=== PATIENT | female | born 1940 | race Caucasian/White ===

== ENCOUNTER 2023-01-26 14:15 | Outpatient (CLI) | payer MEDICARE, SELFPAY ==
--- NOTE | ~2023-01-26 | XR_ITS ---
EXAMINATION: XR hip BI 2V w AP pelvis DATE: 01/26/2023 15:01 INDICATION: Left groin pain. TECHNIQUE: An anteroposterior view of the pelvis and 2 views of each hip were obtained. COMPARISON: None. FINDINGS: Surgical clips overlie the abdomen. There is an old healed fracture of left parasymphyseal pubis. There is lumbar dextrocurvature and severe spondylosis. No acute fracture. There is mild osteo arthritis of the hips. IMPRESSION: 1. Mild osteoarthritis of the hips. Reviewed, dictated and finalized at location E.
== END 2023-01-26 14:16 | disposition home or self-care (01) ==
LOC: CHSIMG 14:25
PROVIDERS: PCP Family Medicine; Visit Provider Family Medicine
DX: S32.9XXA Fracture of unspecified parts of lumbosacral spine and pelvis, initial encounter for closed fracture (principal); M16.0 Bilateral primary osteoarthritis of hip
CPT/HCPCS: 73521

== ENCOUNTER 2024-01-27 05:38 | Inpatient (IN) | payer MEDICARE, SELFPAY ==
[2024-01-27] VITALS (23 sets, daily range): BP systolic 113–152; BP diastolic 51–88; PULSE 72–79; RESP 14–18; TEMP 36.2–36.8; O2SAT 92–100; BMI 26.4
--- NOTE | ~2024-01-27 | XR_ITS ---
EXAMINATION: XR hip LT 2V w AP pelvis DATE: 01/27/2024 06:45 INDICATION: Left hip pain. TECHNIQUE: An anteroposterior view of the pelvis on 2 radiographs and 2 views of left were obtained. COMPARISON: Pelvis and hip radiographs 01/26/2023 FINDINGS: Bone alignment is normal. No acute fracture. There is an old healed fracture deformity of l eft parasymphyseal pubis. There is mild osteoarthritis of the hips. Surgical clips overlie the abdome n. There is severe lumbar spondylosis. IMPRESSION: 1. Mild osteoarthritis of the hips. Reviewed, dictated and finalized at location A.
--- NOTE | ~2024-01-27 | CT_ITS ---
EXAMINATION: CT abd pelvis lumbar wo con DATE: 01/27/2024 11:53 INDICATION: Generalized abdominal pain. Left hip pain. TECHNIQUE: Computed tomography (CT) of the abdomen and pelvis and lumbar spine was performed without intravenous contrast. Automated exposure control and iterative reconstruction technique were employed . The dose-length product was 725.22 mGy-cm. COMPARISON: None FINDINGS: CT ABDOMEN AND PELVIS: The visualized portions of the lung bases demonstrate mild atelectasis. No ple ural effusion. Cardiomegaly is noted. There are calcifications of the aortic valve. No pericardial ef fusion. There are surgical changes of the stomach. The liver and spleen are normal. There are gallsto jenna in the gallbladder, which is distended. The pancreas and adrenal glands are normal. An kidneys ar e normal. There is no urolithiasis. The bladder is distended. There are changes of right hemicolectom y. There are changes of ventral hernia repair. There are no pathologically enlarged lymph nodes. Ther e is no free intraperitoneal fluid. There is fat stranding around left iliopsoas muscle distally. The re is mild osteoarthritis of the hips. CT LUMBAR SPINE: There is 13 degrees levoscoliosis of thoracolumbar spine. There is a chronic bob tue fracture of T12. There is a chronic burst fracture of L1. There is mildly decreased disc height at L1-L2, moderately decreased disc at L2-L3 and L3-L4, severely decreased disc height at L4-L5 and L 5-S1. The following disc levels are specifically discussed: L1-L2: The disc is bulging. There is moderate right and mild left facet joint osteoarthritis. There i s mild bilateral neural foraminal stenosis. There is mild central canal stenosis. L2-L3: The disc is bulging. There is severe right and mild left facet joint osteoarthritis. There is mild bilateral neural foraminal stenosis. There is mild central canal stenosis. L3-L4: The disc is bulging. There is severe right and mild left facet joint osteoarthritis. There is mild bilateral neural foraminal stenosis. There is mild central canal stenosis. L4-L5: The disc is bulging. There is severe bilateral facet joint osteoarthritis. There is mild bilat eral neural foraminal stenosis. There is mild central canal stenosis. L5-S1: The disc is bulging. There is severe bilateral facet joint osteoarthritis. There is mild bilat eral neural foraminal stenosis. There is mild central canal stenosis. IMPRESSION: 1. Fat stranding around left iliopsoas muscle distally. This finding is suspicious for a muscle strai n. 2. Severe lumbar spondylosis. 3. Thoracolumbar levoscoliosis. Reviewed, dictated and finalized at location A. IMPRESSION: 1. Fat stranding around left iliopsoas muscle distally. This finding is suspici ous for a muscle strain. 2. Severe lumbar spondylosis. 3. Thoracolumbar levoscoliosis.
--- NOTE | 2024-01-27 05:53 | ED.LOWEXIN ---
HPI - Extremity Injury (Lower) General Chief Complaint: Extremity Injury, Lower <Chauncey Spain MD - Last Filed: 01/27/24 07:05> Stated Complaint: leg pain <Chauncey Spain MD - Last Filed: 01/27/24 07:05> Time Seen by Provider: 01/27/24 05:53 <Chauncey Spain MD - Last Filed: 01/27/24 07:05> Source: patient <Chauncey Spain MD - Last Filed: 01/27/24 07:05> Mode of arrival: EMS <Chauncey Spain MD - Last Filed: 01/27/24 07:05> Limitations: no limitations <Chauncey Spain MD - Last Filed: 01/27/24 07:05> History of Present Illness HPI Narrative: 83-year-old female, [place] [facility] resident with a history of anxiety / depression, PUD/ GERD complicated by perforation status post surgery,, anemia, atrial fibrillation on Eliquis, bilateral knee replacements, presents to the ED with -- left hip pain off and on for the past few days. patient has not been able to ambulate after this pain started. Decreased range of motion. Pain on movement of the left hip joint. No fever. no recent trauma. <Chauncey Spain MD - Last Filed: 01/27/24 07:05> Onset (ago): day(s) <Chauncey Spain MD - Last Filed: 01/27/24 07:05> Injury: Left: hip <Chauncey Spain MD - Last Filed: 01/27/24 07:05> Relieving factors: immobilization <Chauncey Spain MD - Last Filed: 01/27/24 07:05> Exacerbating factors: movement <Chauncey Spain MD - Last Filed: 01/27/24 07:05> Related Data Home Medications: Home Medications Medication Instructions Recorded Confirmed acetaminophen 325 mg tablet 325 mg PO DAILY 01/27/24 01/27/24 (Tylenol) amiodarone 200 mg tablet (Pacerone) 200 mg PO Q3-4D 01/27/24 01/27/24 apixaban 2.5 mg tablet (Eliquis) 2.5 mg PO BID 01/27/24 01/27/24 aripiprazole 15 mg tablet (Abilify) 15 mg PO DAILY 01/27/24 01/27/24 aspirin 81 mg tablet,delayed 81 mg PO DAILY 01/27/24 01/27/24 release (Adult Low Dose Aspirin) calcium 600 mg (as 1 tablet PO DAILY 01/27/24 01/27/24 carbonate)-vitamin D3 10 mcg (400 unit) tablet (Calcium 600 + D(3)) diclofenac sodium 1 % topical gel See Rx Instructions .Route .COMPLEX 01/27/24 01/27/24 (Voltaren Arthritis Pain) docusate sodium 100 mg tablet 100 mg PO BID 01/27/24 01/27/24 (Stool Softener) duloxetine 60 mg capsule,delayed 60 mg PO DAILY 01/27/24 01/27/24 release (Cymbalta) escitalopram oxalate 10 mg tablet 10 mg PO DAILY 01/27/24 01/27/24 (Lexapro) famotidine 40 mg tablet (Pepcid) 40 mg PO DAILY 01/27/24 01/27/24 ferrous sulfate 324 mg (65 mg 324 mg PO BID 01/27/24 01/27/24 iron) tablet,delayed release gabapentin 100 mg capsule 100 mg PO TID 01/27/24 01/27/24 (Neurontin) hydrocodone 5 mg-acetaminophen 325 1 tablet PO BID 01/27/24 01/27/24 mg tablet lactulose 10 gram/15 mL oral 20 ml PO Q8-10H 01/27/24 01/27/24 solution (Enulose) lorazepam 0.5 mg tablet (Ativan) 0.5 mg PO BID 01/27/24 01/27/24 magnesium oxide 400 mg (241.3 mg 400 mg PO BID 01/27/24 01/27/24 magnesium) tablet (MagOx) melatonin 3 mg tablet 3 mg PO HS 01/27/24 01/27/24 metoprolol succinate 25 mg 25 mg PO DAILY 01/27/24 01/27/24 tablet,extended release 24 hr (Toprol XL) omeprazole 20 mg capsule,delayed 20 mg PO DAILY 01/27/24 01/27/24 release oxybutynin chloride 5 mg tablet 2.5 mg PO BID 01/27/24 01/27/24 polyethylene glycol 3350 17 17 g PO PRN PRN Constipation 01/27/24 01/27/24 gram/dose oral powder (Miralax) sucralfate 1 gram tablet (Carafate) 1 g PO QID 01/27/24 01/27/24 sumatriptan succinate 50 mg tablet 50 mg PO PRN PRN Headache 01/27/24 01/27/24 (Imitrex) vit C 250 mg-vit E 90 mg-zinc 10 1 cap PO BID 01/27/24 01/27/24 mg-copper 1 [id number] capsule (Healthy Eyes SuperVision2) <Chauncey Spain MD - Last Filed: 01/27/24 07:05> Allergies/Adverse Reactions: Allergies Allergy/AdvReac Type Severity Reaction Status Date / Time No Known Allergies Allergy Verified 01/27/24 06:19 <Chauncey Spain MD - Last Filed: 01/27/24 07:05> Review of Systems Review of Systems: All systems reviewed & are unremarkable except as noted in HPI and below <Chauncey Spain MD - Last Filed: 01/27/24 07:05> Constitutional: Constitutional: Reports as per HPI and Reports no additional constitutional complaints <Chauncey Spain MD - Last Filed: 01/27/24 07:05> Eyes: Eyes: Reports as per HPI and Reports no additional eye complaints <Chauncey Spain MD - Last Filed: 01/27/24 07:05> ENT: Reports system reviewed and no additional complaints, except as documented and Reports as per HPI <Chauncey Spain MD - Last Filed: 01/27/24 07:05> Cardiovascular: Cardiovascular: Reports as per HPI and Reports no additional cardiovascular complaints <Chauncey Spain MD - Last Filed: 01/27/24 07:05> Respiratory: Respiratory: Reports as per HPI and Reports no additional respiratory complaints <Chauncey Spain MD - Last Filed: 01/27/24 07:05> Gastrointestinal: Gastrointestinal: Reports as per HPI and Reports no additional gastrointestinal complaints <Chauncey Spain MD - Last Filed: 01/27/24 07:05> Genitourinary: Genitourinary: Reports no additional female genitourinary complaints <Chauncey Spain MD - Last Filed: 01/27/24 07:05> Musculoskeletal: Musculoskeletal: Reports no additional musculoskeletal complaints and Reports as per HPI <Chauncey Spain MD - Last Filed: 01/27/24 07:05> Comments: Left hip pain with decreased range of motion status post bilateral knee replacements. <Chauncey Spain MD - Last Filed: 01/27/24 07:05> Integumentary/Breasts: Skin/Breast: Reports system reviewed and no additional complaints, except as docu and Reports as per HPI <Chauncey Spain MD - Last Filed: 01/27/24 07:05> Neurologic: Reports system reviewed and no additional complaints, except as documented and Reports as per HPI <Chauncey Spain MD - Last Filed: 01/27/24 07:05> Psychiatric: Psychiatric: Reports no additional psychiatric complaints and Reports as per HPI <Chauncey Spain MD - Last Filed: 01/27/24 07:05> Endocrine: Endocrine: Reports no additional endocrine complaints and Reports as per HPI <Chauncey Spain MD - Last Filed: 01/27/24 07:05> Hematologic/Lymphatic: Hematologic/Lymphatic: Reports no additional hematologic/lymphatic complaints and Reports as per HPI <Chauncey Spain MD - Last Filed: 01/27/24 07:05> Allergic/Immunologic: Allergic/Immunologic: Reports no additional allergic/immunologic complaints and Reports as per HPI <Chauncey Spain MD - Last Filed: 01/27/24 07:05> [facility] Past Medical History Medical History: Medical History (Updated 01/27/24 @ 07:03 by Chauncey Spain MD) Anxiety and depression Atrial fibrillation Chronic anemia Gastric perforation PUD (peptic ulcer disease) <Chauncey Spain MD - Last Filed: 01/27/24 07:05> Surgical History Surgical History: Surgical History (Updated 01/27/24 @ 06:22 by Chauncey Spain MD) History of knee replacement <Chauncey Spain MD - Last Filed: 01/27/24 07:05> Exam Narrative: afebrile. Vitals are stable. <Chauncey Spain MD - Last Filed: 01/27/24 07:05> Const: Orientation/consciousness: patient oriented x3 <Chauncey Spain MD - Last Filed: 01/27/24 07:05> Limitations: no limitations <Chauncey Spain MD - Last Filed: 01/27/24 07:05> HENMT: Head: normal to inspection <Chauncey Spain MD - Last Filed: 01/27/24 07:05> Ears: external ears normal <Chauncey Spain MD - Last Filed: 01/27/24 07:05> Face/Nose/Sinus: Normal external nose present <Chauncey Spain MD - Last Filed: 01/27/24 07:05> Face and sinus: normal facial exam <Chauncey Spain MD - Last Filed: 01/27/24 07:05> Mouth: Yes Normal oral and palatal mucosa present <Chauncey Spain MD - Last Filed: 01/27/24 07:05> Throat: posterior oropharynx normal <Chauncey Spain MD - Last Filed: 01/27/24 07:05> Eyes: Conjunctivae: conjunctivae normal <Chauncey Spain MD - Last Filed: 01/27/24 07:05> Pupils: Equal, round and reactive pupils present <Chauncey Spain MD - Last Filed: 01/27/24 07:05> EOM: EOMs intact bilaterally <Chauncey Spain MD - Last Filed: 01/27/24 07:05> Direct Ophthalmoscopy: no photophobia <Chauncey Spain MD - Last Filed: 01/27/24 07:05> Neck: Neck: normal visual inspection, no lymphadenopathy and no meningeal signs <Chauncey Spain MD - Last Filed: 01/27/24 07:05> Chest: Chest palpation & inspection: normal inspection of the chest <Chauncey Spain MD - Last Filed: 01/27/24 07:05> Resp: Effort & Inspection: normal respiratory effort <Chauncey Spain MD - Last Filed: 01/27/24 07:05> Auscultation: clear to auscultation bilaterally <Chauncey Spain MD - Last Filed: 01/27/24 07:05> Other: Clear on auscultation. No added sounds. <Chauncey Spain MD - Last Filed: 01/27/24 07:05> Cardio: Rate: regular rate <Chauncey Spain MD - Last Filed: 01/27/24 07:05> Rhythm: regular rhythm <Chauncey Spain MD - Last Filed: 01/27/24 07:05> GI: GI Palp: Yes Soft to palpation <Chauncey Spain MD - Last Filed: 01/27/24 07:05> Other: No tenderness/rigidity / rebound. <Chauncey Spain MD - Last Filed: 01/27/24 07:05> : General: Yes no CVA tenderness <Chauncey Spain MD - Last Filed: 01/27/24 07:05> Back/Spine/Pelvis: Back: no CVA tenderness <Chauncey Spain MD - Last Filed: 01/27/24 07:05> Skin: General skin exam: normal color <Chauncey Spain MD - Last Filed: 01/27/24 07:05> Rashes: no rashes <Chauncey Spain MD - Last Filed: 01/27/24 07:05> Wounds: no wounds <Chauncey Spain MD - Last Filed: 01/27/24 07:05> Other: Malar erythema <Chauncey Spain MD - Last Filed: 01/27/24 07:05> Neuro: General: patient oriented x3, moves all extremities, no meningeal signs, no focal motor deficits and CN's II-XI intact bilaterally <Chauncey Spain MD - Last Filed: 01/27/24 07:05> Cranial nerves: Yes Nystagmus not present <Chauncey Spain MD - Last Filed: 01/27/24 07:05> Speech: normal speech <Chauncey Spain MD - Last Filed: 01/27/24 07:05> Extrem: General: no clubbing, cyanosis or edema <Chauncey Spain MD - Last Filed: 01/27/24 07:05> Other: left lower extremity is shortened and rotated. Left hip-- tender with decreased range of motion. <Chauncey Spain MD - Last Filed: 01/27/24 07:05> Psych: Mental Status: mental status grossly normal <Chauncey Spain MD - Last Filed: 01/27/24 07:05> Affect: normal affect <Chauncey Spain MD - Last Filed: 01/27/24 07:05> Attitude: cooperative <Chauncey Spain MD - Last Filed: 01/27/24 07:05> Course Course Emergency Course: Left hip pain-- x-ray of the pelvis and hip revealed severe lumbar spondylosis with mild osteoarthritis of the left hip. She had a prior left pubic fracture. The patient was noted to have a normal white cell count and a normal lactate. signed out the patient to Dr. Payton Patient needs placement to a [place] [facility] [place] as she is unable to ambulate. <Chauncey Spain MD - Last Filed: 01/27/24 07:05> Left hip pain-- x-ray of the pelvis and hip revealed severe lumbar spondylosis with mild osteoarthritis of the left hip. She had a prior left pubic fracture. The patient was noted to have a normal white cell count and a normal lactate. signed out the patient to Dr. Payton Patient needs placement to a [place] [facility] as she is unable to ambulate. after social service evaluation patient qualifies for inpatient with some history of fall and unable to ambulate and having difficulty with ambulation and will admit to hospitalist service. Dr. Payton <Matteo Payton MD - Last Filed: 01/27/24 08:30> Vital Signs Vital signs: Vital Signs Temperature 36.2 C L 01/27/24 05:46 Pulse Rate 79 01/27/24 05:46 Respiratory Rate 18 01/27/24 05:46 Blood Pressure 125/68 01/27/24 05:46 Pulse Oximetry 98 01/27/24 05:46 Oxygen Delivery Room Air 01/27/24 05:46 Temperature 36.2 C L 01/27/24 05:46 Pulse Rate 79 01/27/24 05:46 Respiratory Rate 18 01/27/24 05:46 Blood Pressure 125/68 01/27/24 05:46 Pulse Oximetry 98 01/27/24 05:46 Oxygen Delivery Room Air 01/27/24 05:46 <Chauncey Spain MD - Last Filed: 01/27/24 07:05> Vital Signs Temperature 36.2 C L 01/27/24 05:46 Pulse Rate 79 01/27/24 05:46 Respiratory Rate 18 01/27/24 05:46 Blood Pressure 125/68 01/27/24 05:46 Pulse Oximetry 98 01/27/24 05:46 Oxygen Delivery Room Air 01/27/24 05:46 Temperature 36.2 C L 01/27/24 05:46 Pulse Rate 79 01/27/24 05:46 Respiratory Rate 18 01/27/24 05:46 Blood Pressure 125/68 01/27/24 05:46 Pulse Oximetry 98 01/27/24 05:46 Oxygen Delivery Room Air 01/27/24 05:46 <Matteo Payton MD - Last Filed: 01/27/24 08:30> MDM - Extremity Injury (Lower) MDM Narrative Medical decision making narrative: Severe spondylosis of the lumbar spine osteoarthritis left hip <Chauncey Spain MD - Last Filed: 01/27/24 07:05> Differential Diagnosis Differential diagnosis: Likely fracture of hip <Chauncey Spain MD - Last Filed: 01/27/24 07:05> Lab Data Attestation: I reviewed the patient's lab results. <Chauncey Spain MD - Last Filed: 01/27/24 07:05> Result diagrams: 01/27/24 06:23 01/27/24 06:23 <Chauncey Spain MD - Last Filed: 01/27/24 07:05> Labs: Lab Results 01/27/24 Range/Units 06:23 WBC 6.4 (4.8-10.8) K/mm3 RBC 3.93 L (4.20-5.40) M/mm3 Hgb 11.7 (11.7-13.8) g/dL Hct 35.2 (35.0-42.0) % MCV 89.6 (78.0-102.0) fL MCH 29.8 (27.0-31.0) pg MCHC 33.2 (32-36) g/dL RDW 13.0 (11.6-14.4) % Plt Count 238 (150-420) K/mm3 MPV 10.4 (9.2-11.8) fl Immature Gran % (Auto) 0.3 H (0.0-0.0) % Neut % (Auto) 77.3 H (50.0-70.0) % Lymph % (Auto) 12.9 L (18.0-42.0) % Morrison % (Auto) 7.8 (2.0-11.0) % Eos % (Auto) 1.4 (1.0-6.0) % Baso % (Auto) 0.3 (0.0-1.0) % Lymph # (Auto) 0.83 L (1.10-4.50) K/mm3 Morrison # (Auto) 0.50 (0.10-0.90) K/mm3 Eos # (Auto) 0.09 (0.02-0.50) K/mm3 Baso # (Auto) 0.02 (0.00-0.10) K/mm3 Abs Immat Gran (auto) 0.02 H (0.00-0.00) K/mm3 Absolute Neuts (auto) 4.98 (1.70-7.20) K/mm3 Absolute Nucleated RBC 0.00 (0.00-0.00) K/mm3 Nucleated RBC % 0.0 (0-0.0) % Sodium 138 (136-145) mmol/L Potassium 4.0 (3.5-5.1) mmol/L Chloride 101 (98-108) mmol/L Carbon Dioxide 28 (21-32) mmol/L Anion Gap 9 (4-12) mmol/L BUN 18 (7-18) mg/dL Creatinine 0.69 (0.55-1.02) mg/dL Estim Creat Clear Calc 48 ml/min Estimated GFR > 60 (59 - ) Glucose 108 H (70-99) mg/dL Calculated Osmolality 288 (285-295) mOsm/kg Lactic Acid 0.4 (0.4-2.0) mmol/L Calcium 8.8 (8.5-10.1) mg/dL Total Bilirubin 0.4 (0.00-1.00) mg/dL AST 11 L (15-37) U/L ALT 8 L (14-59) U/L Alkaline Phosphatase 91 (46-116) U/L Total Creatine Kinase 21 L (26-192) U/L Total Protein 6.1 L (6.4-8.2) g/dL Albumin 3.3 L (3.4-5.0) g/dL Lipase 25 (16-77) U/L <Chauncey Spain MD - Last Filed: 01/27/24 07:05> Lab Results 01/27/24 Range/Units 06:23 WBC 6.4 (4.8-10.8) K/mm3 RBC 3.93 L (4.20-5.40) M/mm3 Hgb 11.7 (11.7-13.8) g/dL Hct 35.2 (35.0-42.0) % MCV 89.6 (78.0-102.0) fL MCH 29.8 (27.0-31.0) pg MCHC 33.2 (32-36) g/dL RDW 13.0 (11.6-14.4) % Plt Count 238 (150-420) K/mm3 MPV 10.4 (9.2-11.8) fl Immature Gran % (Auto) 0.3 H (0.0-0.0) % Neut % (Auto) 77.3 H (50.0-70.0) % Lymph % (Auto) 12.9 L (18.0-42.0) % Morrison % (Auto) 7.8 (2.0-11.0) % Eos % (Auto) 1.4 (1.0-6.0) % Baso % (Auto) 0.3 (0.0-1.0) % Lymph # (Auto) 0.83 L (1.10-4.50) K/mm3 Morrison # (Auto) 0.50 (0.10-0.90) K/mm3 Eos # (Auto) 0.09 (0.02-0.50) K/mm3 Baso # (Auto) 0.02 (0.00-0.10) K/mm3 Abs Immat Gran (auto) 0.02 H (0.00-0.00) K/mm3 Absolute Neuts (auto) 4.98 (1.70-7.20) K/mm3 Absolute Nucleated RBC 0.00 (0.00-0.00) K/mm3 Nucleated RBC % 0.0 (0-0.0) % Sodium 138 (136-145) mmol/L Potassium 4.0 (3.5-5.1) mmol/L Chloride 101 (98-108) mmol/L Carbon Dioxide 28 (21-32) mmol/L Anion Gap 9 (4-12) mmol/L BUN 18 (7-18) mg/dL Creatinine 0.69 (0.55-1.02) mg/dL Estim Creat Clear Calc 48 ml/min Estimated GFR > 60 (59 - ) Glucose 108 H (70-99) mg/dL Calculated Osmolality 288 (285-295) mOsm/kg Lactic Acid 0.4 (0.4-2.0) mmol/L Calcium 8.8 (8.5-10.1) mg/dL Total Bilirubin 0.4 (0.00-1.00) mg/dL AST 11 L (15-37) U/L ALT 8 L (14-59) U/L Alkaline Phosphatase 91 (46-116) U/L Total Creatine Kinase 21 L (26-192) U/L Total Protein 6.1 L (6.4-8.2) g/dL Albumin 3.3 L (3.4-5.0) g/dL Lipase 25 (16-77) U/L <Matteo Payton MD - Last Filed: 01/27/24 08:30> Discharge Plan Discharge Clinical Impression: Spondylosis of lumbar spine, Arthritis of hip <Chauncey Spain MD - Last Filed: 01/27/24 07:05> Patient Disposition: Home, Self-Care <Chauncey Spain MD - Last Filed: 01/27/24 07:05> Condition: Stable <Chauncey Spain MD - Last Filed: 01/27/24 07:05> Instructions: Antibiotic Form, Osteoarthritis (ED) <Chauncey Spain MD - Last Filed: 01/27/24 07:05> Patient Language: Lebanese <Chauncey Spain MD - Last Filed: 01/27/24 07:05> Prescriptions: No Action acetaminophen [Tylenol] 325 mg tablet 325 mg PO DAILY amiodarone [Pacerone] 200 mg tablet 200 mg PO Q3-4D Rx Instructions: every three days for atrial fibrillation. famotidine [Pepcid] 40 mg tablet 40 mg PO DAILY melatonin 3 mg tablet 3 mg PO HS aspirin [Adult Low Dose Aspirin] 81 mg tablet,delayed release (DR/EC) 81 mg PO DAILY magnesium oxide [MagOx] 400 mg (241.3 mg magnesium) tablet 400 mg PO BID lorazepam [Ativan] 0.5 mg tablet 0.5 mg PO BID omeprazole 20 mg capsule,delayed release(DR/EC) 20 mg PO DAILY metoprolol succinate [Toprol XL] 25 mg tablet extended release 24 hr 25 mg PO DAILY oxybutynin chloride 5 mg tablet 2.5 mg PO BID docusate sodium [Stool Softener] 100 mg tablet 100 mg PO BID escitalopram oxalate [Lexapro] 10 mg tablet 10 mg PO DAILY aripiprazole [Abilify] 15 mg tablet 15 mg PO DAILY duloxetine [Cymbalta] 60 mg capsule,delayed release(DR/EC) 60 mg PO DAILY calcium carbonate-vitamin D3 [Calcium 600 + D(3)] 600 mg-10 mcg (400 unit) tablet 1 tablet PO DAILY ferrous sulfate 324 mg (65 mg iron) tablet,delayed release (DR/EC) 324 mg PO BID Eliquis 2.5 mg tablet 2.5 mg PO BID hydrocodone-acetaminophen 5-325 mg tablet 1 tablet PO BID sucralfate [Carafate] 1 gram tablet 1 g PO QID sumatriptan succinate [Imitrex] 50 mg tablet 50 mg PO PRN PRN (Reason: Headache) Rx Instructions: take one tablet by mouth every day as needed for headache. max of 200 mg. gabapentin [Neurontin] 100 mg capsule 100 mg PO TID polyethylene glycol 3350 [Miralax] 17 gram/dose powder 17 g PO PRN PRN (Reason: Constipation) Rx Instructions: Mix 17 gm (one cap full) in 8 oz of liquid and drink daily as needed for constipation. lactulose [Enulose] 10 gram/15 mL solution 20 ml PO Q8-10H diclofenac sodium [Voltaren Arthritis Pain] 1 % gel See Rx Instructions .ROUTE .COMPLEX Rx Instructions: use as directed. Healthy Eyes SuperVision2 250-90-10-1 mg capsule 1 cap PO BID <Chauncey Spain MD - Last Filed: 01/27/24 07:05> Follow-up/Referrals: Varghese,MD Jarret [Primary Care Provider] - <Chauncey Spain MD - Last Filed: 01/27/24 07:05>
--- NOTE | 2024-01-27 05:57 | PC.NURSE ---
pt placed on bedpan
--- NOTE | 2024-01-27 06:02 | PC.NURSE ---
Pt taken off bedpan. ERP at bedside
--- NOTE | 2024-01-27 06:10 | PC.NURSE ---
patient resting on stretcher, several warm blankets provided to aid in patient comfort. patient assisted with bedpan and daughter now at bedside. vss. patient and her daughter aware of plan of care including imaging and labs. call light within reach.
[2024-01-27] MEDS: ONDANSETRON HCL ODT 4 MG TABLET PO (06:26)
[2024-01-27] MEDS: HYDROmorphone HCL INJ (*CRX) 2 MG/ML VIAL 0.5 MG IM (06:26)
[2024-01-27 06:29] LABS: Basophils Absolute Auto 0.02 K/mm3 (0.00-0.10); Basophils Percent Auto 0.3 % (0.0-1.0); Eosinophils Absolute Auto 0.09 K/mm3 (0.02-0.50); Eosinophils Percent Auto 1.4 % (1.0-6.0); Hematocrit 35.2 % (35.0-42.0); Hemoglobin 11.7 g/dL (11.7-13.8); Immature Granulocyte Absolute 0.02 K/mm3 (0.00-0.00); Immature Granulocyte Percent A 0.3 % (0.0-0.0); Lymphocytes Absolute Auto 0.83 K/mm3 (1.10-4.50); Lymphocytes Percent Auto 12.9 % (18.0-42.0); Mean Corpuscular HGB Conc 33.2 g/dL (32-36); Mean Corpuscular Hemoglobin 29.8 pg (27.0-31.0); Mean Corpuscular Volume 89.6 fL (78.0-102.0); Mean Platelet Volume 10.4 fl (9.2-11.8); Monocytes Percent Auto 7.8 % (2.0-11.0); Neutrophils Absolute Auto 4.98 K/mm3 (1.70-7.20); Neutrophils Percent Auto 77.3 % (50.0-70.0); Platelet Count Result 238 K/mm3 (150-420); Red Blood Count 3.93 M/mm3 (4.20-5.40); White Blood Count 6.4 K/mm3 (4.8-10.8)
[2024-01-27 06:42] LABS: Lipase 25 U/L (16-77)
[2024-01-27 06:45] LABS: Alanine Aminotransferase 8 U/L (14-59); Albumin Level 3.3 g/dL (3.4-5.0); Alkaline Phosphatase 91 U/L (46-116); Anion Gap 9 mmol/L (4-12); Aspartate Amino Transferase 11 U/L (15-37); Bilirubin,Total 0.4 mg/dL (0.00-1.00); Blood Urea Nitrogen 18 mg/dL (7-18); Calcium 8.8 mg/dL (8.5-10.1); Carbon Dioxide 28 mmol/L (21-32); Chloride 101 mmol/L (98-108); Creatine Kinase 21 U/L (26-192); Estimated CRCL calculation 48 ml/min; Estimated Glomerular Filt Rate > 60; Glucose 108 mg/dL (70-99); Osmolality Calculated 288 mOsm/kg (285-295); Sodium 138 mmol/L (136-145); Total Protein 6.1 g/dL (6.4-8.2)
[2024-01-27 06:47] LABS: Lactic Acid Reflex 0.4 mmol/L (0.4-2.0)
--- NOTE | 2024-01-27 07:02 | PC.NURSE ---
Dr. Spain at patient bedside for update. patient daughter remains at bedside. Patient report given to NICK Landry for continuation of care on day shift.
--- NOTE | 2024-01-27 08:12 | PC.NURSE ---
health care social worker called for consult at 0810
--- NOTE | 2024-01-27 08:17 | PC.NURSE ---
social media analyst here to talk with pt
--- NOTE | 2024-01-27 09:25 | ADMGEN ---
This patient, Emerald Reeves, was admitted to 2nd Floor Room 209-1. Patient/family oriented to hospital policies and general routines including ID bracelet, bed and alarms, visiting hours, pain management, procedures, bathroom and other care routines, personal items, smoking policy, room service/diet, and visiting hours. Information on how to activate the Rapid Response Team has been discussed. Patient/Family are encouraged to report perceived risks to care and to ask questions if they do not understand what they are told or what they should do.
--- NOTE | 2024-01-27 10:12 | P.HP_ITS ---
H&P: HPI History of Present Illness Date/Time: 01/27/24 10:12 Chief Complaint: Unable to ambulate Narrative: Patient is an 83-year-old female who presented to the emergency department from her assisted living facility with complaints of inability to ambulate. Per patient and daughter at bedside patient was unable to get bed or ambulate due to severe pelvic pain patient and daughter report this has been progressively getting worse however this is the 1st time the patient has not been able to ambulate on her own. patient denied she has had any loss bowel or incontinence, denied any chest pain, shortness breath, nausea, vomiting, or abdominal pain. patient did endorsed severe left-sided hip pain and inability to apply any pressure to left side. labs were unremarkable in the emergency department hip and pelvis x-ray just showed old rami pelvic fracture and mild osteoarthritis. patient was admitted to the medical unit for further pain control physical and occupational therapy and inability to ambulate. patient will need placement to a [place] [facility] facility for further rehabilitation. Review of Systems Review of Systems: All systems reviewed & are unremarkable except as noted in HPI and below PMFSH Past Medical History Medical History (Updated 01/27/24 @ 10:25 by Nu Minor APRN) Anxiety and depression Atrial fibrillation Chronic anemia Gastric perforation PUD (peptic ulcer disease) Surgical History Surgical History History of knee replacement Meds Home Medications and Allergies Home Medications Medication Instructions Recorded Confirmed Type acetaminophen 325 mg tablet 325 mg PO DAILY 01/27/24 01/27/24 History (Tylenol) amiodarone 200 mg tablet (Pacerone) 200 mg PO Q3-4D 01/27/24 01/27/24 History apixaban 2.5 mg tablet (Eliquis) 2.5 mg PO BID 01/27/24 01/27/24 History aripiprazole 15 mg tablet (Abilify) 15 mg PO DAILY 01/27/24 01/27/24 History aspirin 81 mg tablet,delayed 81 mg PO DAILY 01/27/24 01/27/24 History release (Adult Low Dose Aspirin) calcium 600 mg (as 1 tablet PO DAILY 01/27/24 01/27/24 History carbonate)-vitamin D3 10 mcg (400 unit) tablet (Calcium 600 + D(3)) diclofenac sodium 1 % topical gel See Rx Instructions .Route .COMPLEX 01/27/24 01/27/24 History (Voltaren Arthritis Pain) docusate sodium 100 mg tablet 100 mg PO BID 01/27/24 01/27/24 History (Stool Softener) duloxetine 60 mg capsule,delayed 60 mg PO DAILY 01/27/24 01/27/24 History release (Cymbalta) escitalopram oxalate 10 mg tablet 10 mg PO DAILY 01/27/24 01/27/24 History (Lexapro) famotidine 40 mg tablet (Pepcid) 40 mg PO DAILY 01/27/24 01/27/24 History ferrous sulfate 324 mg (65 mg 324 mg PO BID 01/27/24 01/27/24 History iron) tablet,delayed release gabapentin 100 mg capsule 100 mg PO TID 01/27/24 01/27/24 History (Neurontin) hydrocodone 5 mg-acetaminophen 325 1 tablet PO BID 01/27/24 01/27/24 History mg tablet lactulose 10 gram/15 mL oral 20 ml PO Q8-10H 01/27/24 01/27/24 History solution (Enulose) lorazepam 0.5 mg tablet (Ativan) 0.5 mg PO BID 01/27/24 01/27/24 History magnesium oxide 400 mg (241.3 mg 400 mg PO BID 01/27/24 01/27/24 History magnesium) tablet (MagOx) melatonin 3 mg tablet 3 mg PO HS 01/27/24 01/27/24 History metoprolol succinate 25 mg 25 mg PO DAILY 01/27/24 01/27/24 History tablet,extended release 24 hr (Toprol XL) omeprazole 20 mg capsule,delayed 20 mg PO DAILY 01/27/24 01/27/24 History release oxybutynin chloride 5 mg tablet 2.5 mg PO BID 01/27/24 01/27/24 History polyethylene glycol 3350 17 17 g PO PRN PRN Constipation 01/27/24 01/27/24 History gram/dose oral powder (Miralax) sucralfate 1 gram tablet (Carafate) 1 g PO QID 01/27/24 01/27/24 History sumatriptan succinate 50 mg tablet 50 mg PO PRN PRN Headache 01/27/24 01/27/24 History (Imitrex) vit C 250 mg-vit E 90 mg-zinc 10 1 cap PO BID 01/27/24 01/27/24 History mg-copper 1 [id number] capsule (Healthy Eyes SuperVision2) Allergies Allergy/AdvReac Type Severity Reaction Status Date / Time No Known Allergies Allergy Verified 01/27/24 06:19 Vital Signs Vital Signs - 24 hr 01/27/24 05:46 01/27/24 08:50 01/27/24 05:45 Temperature 97.1 F L 98.2 F Pulse Rate 79 78 Respiratory Rate 18 14 Blood Pressure 125/68 140/71 152/68 H Pulse Oximetry 98 94 98 Oxygen Delivery Room Air Room Air 01/27/24 05:46 01/27/24 05:47 01/27/24 06:00 Temperature Pulse Rate Respiratory Rate Blood Pressure 140/88 Pulse Oximetry 97 97 97 Oxygen Delivery 01/27/24 06:01 01/27/24 06:15 01/27/24 06:16 Temperature Pulse Rate Respiratory Rate Blood Pressure 142/70 H 145/81 H Pulse Oximetry 98 97 97 Oxygen Delivery 01/27/24 06:42 01/27/24 06:45 01/27/24 07:00 Temperature Pulse Rate Respiratory Rate Blood Pressure Pulse Oximetry 95 96 96 Oxygen Delivery 01/27/24 07:15 01/27/24 07:30 01/27/24 07:45 Temperature Pulse Rate Respiratory Rate Blood Pressure Pulse Oximetry 92 92 92 Oxygen Delivery 01/27/24 08:00 01/27/24 08:15 01/27/24 08:30 Temperature Pulse Rate Respiratory Rate Blood Pressure Pulse Oximetry 94 94 96 Oxygen Delivery 01/27/24 08:45 Temperature Pulse Rate Respiratory Rate Blood Pressure Pulse Oximetry 93 Oxygen Delivery Exam Narrative: * GENERAL: Alert and oriented x 3. No acute distress. * EYES: EOMI. No scleral icterus. PERRLA. * HEENT: Moist mucous membranes. * LUNGS: Clear to auscultation bilaterally. No accessory muscle use. * CARDIOVASCULAR: Regular rate and rhythm. No murmur. No JVD. S1-S2 * ABDOMEN: Soft, non tenderness and non-distended. No palpable masses. * EXTREMITIES: Severe pain with movement LT hip and pelvis no internal or external rotation, unable to extend of lift LLE due to sever pain 1/5 mobility * SKIN: No rashes or lesions. Skin warm, dry. * NEUROLOGIC: No focal neurological deficits. CN II-XII grossly intact * PSYCHIATRIC: Appropriate mood and affect. Good judgement and insight. H&P: Results Labs Labs: Short CBC 01/27/24 Range/Units 06:23 WBC 6.4 (4.8-10.8) K/mm3 Hgb 11.7 (11.7-13.8) g/dL Hct 35.2 (35.0-42.0) % Plt Count 238 (150-420) K/mm3 BMP 01/27/24 06:23 Sodium 138 Potassium 4.0 Chloride 101 Carbon Dioxide 28 BUN 18 Creatinine 0.69 Glucose 108 H Calcium 8.8 Cardiac Enzymes 01/27/24 Range/Units 06:23 Total Creatine Kinase 21 L (26-192) U/L Liver Function 01/27/24 Range/Units 06:23 Total Bilirubin 0.4 (0.00-1.00) mg/dL AST 11 L (15-37) U/L ALT 8 L (14-59) U/L Alkaline Phosphatase 91 (46-116) U/L Albumin 3.3 L (3.4-5.0) g/dL Assessment and Plan Assessment and plan (1) Impaired ambulation: Code(s): R26.2 - Difficulty in walking, not elsewhere classified Status: Acute Assessment and Plan: * Patient unable to ambulate on own new onset with severe pain * XRAY with mild osteoarthritis and previous Rami fracture * CT scan pending * Pain control PO/IV * PT/OT * no loss of bowel or incontinence * Will likely need SNF (2) Difficulty in walking: Code(s): R26.2 - Difficulty in walking, not elsewhere classified Status: Acute Assessment and Plan: * SEE ABOVE (3) Arthritis of hip: Code(s): M16.10 - Unilateral primary osteoarthritis, unspecified hip Status: Acute Assessment and Plan: * LT hip pain unable to ambulate due to severe pain * XRAY with mild osteoarthritis * pain control * CT pelvis hip pending (4) Age-related physical debility: Code(s): R54 - Age-related physical debility Status: Acute Assessment and Plan: * SEE ABOVE (5) Atrial fibrillation: Code(s): I48.91 - Unspecified atrial fibrillation Status: Acute Assessment and Plan: * HR rate controlled * resumed Amio and Eliquis (6) Migraine: Code(s): G43.909 - Migraine, unspecified, not intractable, without status migrainosus Status: Acute Assessment and Plan: * Resumed PRN sumatriptan (7) PUD (peptic ulcer disease): Code(s): K27.9 - Peptic ulcer, site unspecified, unspecified as acute or chronic, without hemorrhage or perforation Status: Acute Assessment and Plan: * Resumed PPI and Carafate (8) Chronic anemia: Code(s): D64.9 - Anemia, unspecified Status: Acute Assessment and Plan: * Hgb Stable * resumed home ferrous sulfate * stool softeners as needed Plan Code status: Full code per patient DVT prophylaxis: Eliquis Stress ulcer prophylaxis: Pepcid 20 daily PT/OT notes: PT/OT pending Disposition: patient was admitted to the medical unit due to new onset severe pain and inability to ambulate on own PT/OT ordered and pain control patient will need placement to [place] [facility] care coordination consulted for further assistance. Quality VTE Prophylaxis VTE prophylaxis: pharmacologic ordered -Patient's previous records reviewed on admission -ER notes reviewed in detail on admission -discussed all findings and current treatment plan with patient/Family/POA -Consultations reviewed for recommendations -Patient's disposition for safe discharge discussed with caseworker protective services Dictation performed by [employer] direct speech recognition software, therefore tube room cashier variants and typographical errors may occur. Hospitalist [facility] Advance Care Plan I have confirmed that the patient's Advanced Care Plan is present, code status is documented, or surrogate decision maker is listed in patient medical record.: Yes Medication Reconciliation I have utilized all available resources to obtain, update and review the patients current medications (includes all prescriptions, OTC, herbals, cannabis, and nutritional supplements).: Yes The patient is not eligible for med reconciliation; the patient is in a emergent medical situation where delaying treatment would jeopardize the patients health.: No
[2024-01-27] MEDS: ARIPiprazole 5 MG TABLET 15 MG PO (11:16)
[2024-01-27] MEDS: ESCITALOPRAM OXALATE 10 MG TABLET PO (11:17)
[2024-01-27] MEDS: oxyCODONE/ACETAMINOPHEN (*CRX) 5-325 MG TABLET 1 TABLET PO ×2 (11:18→21:01)
[2024-01-27] MEDS: METOPROLOL SUCCINATE EXT REL 25 MG TABCR PO (11:18)
[2024-01-27] MEDS: FAMOTIDINE 20 MG TABLET 40 MG PO (11:18)
[2024-01-27] MEDS: ASPIRIN 81 MG ENTERIC TABLET PO (11:18)
[2024-01-27] MEDS: APIXABAN 2.5 MG TABLET PO ×2 (11:19→21:01)
[2024-01-27] MEDS: DULoxetine HCL 30 MG CAPSULE.DR 60 MG PO (11:19)
[2024-01-27] MEDS: AMIODARONE HCL 200 MG TABLET PO (11:21)
[2024-01-27 11:27] LABS: Add Urine Microscopic? NO; Appearance Urine Clear (Clear); Bilirubin Urine Negative (Negative); Blood Urine Negative (Negative); Color Urine Light Yellow (Yellow); Glucose Urine UA Negative (Negative); Ketones Urine Negative (Negative); Leukocyte Esterase Ur Negative LEU/UL (Negative); Nitrate Urine Negative (Negative); Protein Urine Negative (Negative); Urobilinogen Urine 0.2 mg/dL (0.2-1.0)
--- NOTE | 2024-01-27 11:27 | PC.NURSE ---
Patient taken down via bed for CT by [employer].
--- NOTE | 2024-01-27 11:45 | PC.NURSE ---
Patient back in room from CT. Assisted to use bedpan, darcie care provided. Call light provided, hob elevated.
[2024-01-27] MEDS: GABAPENTIN 100 MG CAPSULE PO ×2 (14:02→17:13)
[2024-01-27] MEDS: SUCRALFATE 1 GM TABLET PO ×3 (14:02→21:01)
[2024-01-27] MEDS: MORPHINE SULFATE (*CRX) 2 MG/ML INJ 1 MG IV PUSH (14:45)
[2024-01-27] MEDS: DOCUSATE SODIUM 100 MG CAPSULE PO (17:13)
[2024-01-27] MEDS: MAGNESIUM OXIDE 400 MG TABLET PO (17:13)
[2024-01-27] MEDS: FERROUS SULFATE 325 MG TABLET DR BY MOUTH (17:13)
[2024-01-27] MEDS: oxyBUTYnin CHLORIDE 2.5 MG TAB PO (17:13)
[2024-01-27] MEDS: LORazepam (*CRX) 0.5 MG TABLET PO (17:13)
[2024-01-27] MEDS: CYCLOBENZAPRINE HCL 10 MG TABLET PO (18:15)
[2024-01-27] MEDS: MELATONIN 3 MG TABLET PO (21:00)
[2024-01-27] MEDS: LACTULOSE 20 GM/30 ML UDC 13.3333 GM PO (21:01)
[2024-01-28] VITALS: BP 115/50; PULSE 73; RESP 16; TEMP 36.8; O2SAT 96
[2024-01-28] MEDS: SUMAtriptan SUCCINATE 25 MG TABLET 50 MG PO (04:06)
[2024-01-28] MEDS: oxyCODONE/ACETAMINOPHEN (*CRX) 5-325 MG TABLET 1 TABLET PO ×3 (05:26→15:51)
[2024-01-28 05:39] LABS: Basophils Absolute Auto 0.02 K/mm3 (0.00-0.10); Basophils Percent Auto 0.2 % (0.0-1.0); Eosinophils Absolute Auto 0.07 K/mm3 (0.02-0.50); Eosinophils Percent Auto 0.9 % (1.0-6.0); Hematocrit 35.6 % (35.0-42.0); Hemoglobin 11.6 g/dL (11.7-13.8); Immature Granulocyte Absolute 0.03 K/mm3 (0.00-0.00); Immature Granulocyte Percent A 0.4 % (0.0-0.0); Lymphocytes Absolute Auto 0.81 K/mm3 (1.10-4.50); Lymphocytes Percent Auto 10.1 % (18.0-42.0); Mean Corpuscular HGB Conc 32.6 g/dL (32-36); Mean Corpuscular Hemoglobin 29.9 pg (27.0-31.0); Mean Corpuscular Volume 91.8 fL (78.0-102.0); Mean Platelet Volume 10.4 fl (9.2-11.8); Monocytes Absolute Auto 0.73 K/mm3 (0.10-0.90); Monocytes Percent Auto 9.1 % (2.0-11.0); Neutrophils Absolute Auto 6.36 K/mm3 (1.70-7.20); Neutrophils Percent Auto 79.3 % (50.0-70.0); Platelet Count Result 239 K/mm3 (150-420); Red Blood Count 3.88 M/mm3 (4.20-5.40); Red Cell Distribution Width 13.1 % (11.6-14.4)
[2024-01-28 06:07] LABS: Alanine Aminotransferase 12 U/L (14-59); Albumin Level 3.1 g/dL (3.4-5.0); Alkaline Phosphatase 85 U/L (46-116); Anion Gap 6 mmol/L (4-12); Aspartate Amino Transferase 10 U/L (15-37); Bilirubin,Total 0.5 mg/dL (0.00-1.00); Blood Urea Nitrogen 18 mg/dL (7-18); Calcium 8.8 mg/dL (8.5-10.1); Carbon Dioxide 29 mmol/L (21-32); Chloride 103 mmol/L (98-108); Estimated CRCL calculation 44 ml/min; Estimated Glomerular Filt Rate > 60; Glucose 101 mg/dL (70-99); Osmolality Calculated 287 mOsm/kg (285-295); Potassium 4.2 mmol/L (3.5-5.1); Sodium 138 mmol/L (136-145); Total Protein 6.1 g/dL (6.4-8.2)
[2024-01-28 08:00] VITALS: BP 115/51; PULSE 78; RESP 14; TEMP 36.6; O2SAT 94
--- NOTE | 2024-01-28 09:01 | P.PNIM_ITS ---
Progress Note: A&P Assessment and Plan (1) Impaired ambulation: Code(s): R26.2 - Difficulty in walking, not elsewhere classified Status: Acute Assessment and Plan: * Patient unable to ambulate on own new onset with severe pain * XRAY with mild osteoarthritis and previous Rami fracture * CT scan pending * Pain control PO/IV * PT/OT * no loss of bowel or incontinence * Will likely need SNF 01/28/24: * CT scan showing left iliopsoas likely suspicious of muscle strain/Severe lumbar spondylosis and thoracolumbar levoscoliosis * added Flexeril t.i.d. (2) Difficulty in walking: Code(s): R26.2 - Difficulty in walking, not elsewhere classified Status: Acute Assessment and Plan: * SEE ABOVE (3) Arthritis of hip: Code(s): M16.10 - Unilateral primary osteoarthritis, unspecified hip Status: Acute Assessment and Plan: * LT hip pain unable to ambulate due to severe pain * XRAY with mild osteoarthritis * pain control * CT pelvis reviewed (4) Age-related physical debility: Code(s): R54 - Age-related physical debility Status: Acute Assessment and Plan: * SEE ABOVE (5) Atrial fibrillation: Code(s): I48.91 - Unspecified atrial fibrillation Status: Acute Assessment and Plan: * HR rate controlled * resumed Amio and Eliquis (6) Migraine: Code(s): G43.909 - Migraine, unspecified, not intractable, without status migrainosus Status: Acute Assessment and Plan: * Resumed PRN sumatriptan (7) PUD (peptic ulcer disease): Code(s): K27.9 - Peptic ulcer, site unspecified, unspecified as acute or chronic, without hemorrhage or perforation Status: Acute Assessment and Plan: * Resumed PPI and Carafate (8) Chronic anemia: Code(s): D64.9 - Anemia, unspecified Status: Acute Assessment and Plan: * Hgb Stable * resumed home ferrous sulfate * stool softeners as needed Plan Code status: Full code per patient DVT prophylaxis: Eliquis Stress ulcer prophylaxis: Pepcid 20 daily PT/OT notes: PT/OT pending Disposition: patient was admitted to the medical unit due to new onset severe pain and inability to ambulate on own PT/OT ordered and pain control patient will need placement to [facility] care coordination consulted for further assistance. Time Spent With Patient Time with patient: 15 - 25 minutes Subjective Date/time seen: 01/28/24 09:01 Interval history: patient is an 83-year-old female who was admitted after new onset of inability to ambulate on own showing severe muscle strain and needed pain control. 01/28/2024: Patient up in chair still reporting severe pain and unable to move her left leg on her own. Patient states pain is still severe but pain medication is helping. She denied any CP, SOB, N/V, or difficulty defecating or urinating. Review of Systems Review of Systems: All systems reviewed & are unremarkable except as noted in HPI and below Exam Narrative: * GENERAL: Alert and oriented x 3. No acute distress. * EYES: EOMI. No scleral icterus. PERRLA. * HEENT: Moist mucous membranes. * LUNGS: Clear to auscultation bilaterally. No accessory muscle use. * CARDIOVASCULAR: Regular rate and rhythm. No murmur. No JVD. S1-S2 * ABDOMEN: Soft, non tenderness and non-distended. No palpable masses. * EXTREMITIES: Severe pain with movement LT hip and pelvis no internal or external rotation, unable to extend of lift LLE due to sever pain 1/5 mobility * SKIN: No rashes or lesions. Skin warm, dry. * NEUROLOGIC: No focal neurological deficits. CN II-XII grossly intact * PSYCHIATRIC: Appropriate mood and affect. Good judgement and insight. Objective Data Vital Signs Vital Signs: Vital Signs - 24 hr 01/27/24 11:18 01/27/24 11:21 01/27/24 09:25 Temperature 97.4 F L Pulse Rate 76 76 76 Respiratory Rate 18 Blood Pressure 133/70 Pulse Oximetry 92 Oxygen Delivery Room Air Oxygen Flow Rate 01/27/24 12:00 01/27/24 16:35 01/28/24 00:00 Temperature 97.7 F 98.2 F Pulse Rate 72 73 Respiratory Rate 16 16 Blood Pressure 113/51 L 115/50 L Pulse Oximetry 92 100 96 Oxygen Delivery Nasal Cannula Room Air Room Air Oxygen Flow Rate 4 Intake/Output Intake/Output: Intake & Output 01/25/24 01/26/24 01/27/24 01/28/24 23:59 23:59 23:59 23:59 Intake Total 320 150 Output Total 425 Balance -105 150 Meds/Results Medications: Active Medications Generic Name Dose Route Start Last Admin Trade Name Freq PRN Reason Stop Dose Admin Acetaminophen 650 mg 01/27/24 10:05 Acetaminophen 325 Mg Tablet PO Q4H PRN Mild Pain (1-3) or Fever Amiodarone HCl 200 mg 01/30/24 09:00 Amiodarone Hcl 200 Mg Tablet PO Q72H LOKI Apixaban 2.5 mg 01/27/24 11:00 01/27/24 21:01 Apixaban 2.5 Mg Tablet PO 2.5 mg Q12HR LOKI Administration Aripiprazole 15 mg 01/27/24 11:00 01/27/24 11:16 Aripiprazole 5 Mg Tablet PO 15 mg DAILY LOKI Administration Aspirin 81 mg 01/27/24 11:00 01/27/24 11:18 Aspirin 81 Mg Enteric Tablet PO 81 mg DAILY LOKI Administration Cyclobenzaprine HCl 10 mg 01/28/24 13:00 Cyclobenzaprine Hcl 10 Mg Tablet PO TID LOKI Docusate Sodium 100 mg 01/27/24 17:00 01/27/24 17:13 Docusate Sodium 100 Mg Capsule PO 100 mg BID LOKI Administration Duloxetine HCl 60 mg 01/27/24 11:00 01/27/24 11:19 Duloxetine Hcl 30 Mg Capsule.Dr PO 60 mg QAM LOKI Administration Escitalopram Oxalate 10 mg 01/27/24 11:00 01/27/24 11:17 Escitalopram Oxalate 10 Mg Tablet PO 10 mg DAILY LOKI Administration Famotidine 40 mg 01/27/24 11:00 01/27/24 11:18 Famotidine 20 Mg Tablet PO 40 mg DAILY LOKI Administration Ferrous Sulfate 325 mg 01/27/24 17:00 01/27/24 17:13 Ferrous Sulfate [address] BY MOUTH 325 mg BID LOKI Administration Gabapentin 100 mg 01/27/24 13:00 01/27/24 17:13 Gabapentin 100 Mg Capsule PO 100 mg TID LOKI Administration Lactulose 13.3333 gm 01/27/24 21:00 01/27/24 21:01 Lactulose 20 Gm/30 Ml Udc PO 13.3333 gm HS [facility] Administration Lorazepam 0.5 mg 01/27/24 17:00 01/27/24 17:13 Lorazepam (*Crx) 0.5 Mg Tablet PO 0.5 mg BID LOKI Administration Magnesium Oxide 400 mg 01/27/24 17:00 01/27/24 17:13 Magnesium Oxide 400 Mg Tablet PO 400 mg BID LOKI Administration Melatonin 3 mg 01/27/24 21:00 01/27/24 21:00 Melatonin 3 Mg Tablet PO 3 mg HS LOKI Administration Metoprolol Succinate 25 mg 01/27/24 11:00 01/27/24 11:18 Metoprolol Succinate Ext Rel 25 Mg Tabcr PO 25 mg DAILY [facility] Administration Morphine Sulfate 1 mg 01/27/24 10:09 01/27/24 14:45 Morphine Sulfate (*Crx) 2 Mg/Ml Inj IV PUSH 1 mg Q4H PRN Administration Pain Rated 7-10 Ondansetron HCl 4 mg 01/27/24 10:05 Ondansetron Inj 4 Mg/2 Ml Vial IV PUSH Q6H PRN Nausea And Vomiting Oxybutynin Chloride 2.5 mg 01/27/24 17:00 01/27/24 17:13 Oxybutynin Chloride 2.5 Mg Tab PO 2.5 mg BID [facility]OKI Administration Oxycodone/Acetaminophen 1 tablet 01/27/24 10:30 01/28/24 05:26 Oxycodone/Acetaminophen (*Crx) 5-325 Mg Tablet PO 1 tablet Q4H PRN Administration Pain Rated 4-6 Polyethylene Glycol 17 gm 01/27/24 09:00 Polyethylene Glycol 3350 17 Gm Powd.Pack PO DAILY PRN Constipation Sucralfate 1 gm 01/27/24 13:00 01/27/24 21:01 Sucralfate 1 Gm Tablet PO 1 gm QID [facility] Administration Sumatriptan Succinate 50 mg 01/27/24 10:07 01/28/24 04:06 Sumatriptan Succinate 25 Mg Tablet PO 50 mg DAILY PRN Administration Headache Radiology Results: ITS Impressions Hip/Pelvis X-Ray 01/27/24 06:47 IMPRESSION: 1. Mild osteoarthritis of the hips. Miscellaneous CT Procedure 01/27/24 12:19 IMPRESSION: 1. Fat stranding around left iliopsoas muscle distally. This finding is suspicious for a muscle strain. 2. Severe lumbar spondylosis. 3. Thoracolumbar levoscoliosis. Labs Labs: Laboratory Results - last 24 hr 01/27/24 01/28/24 10:45 05:34 WBC 8.0 RBC 3.88 L Hgb 11.6 L Hct 35.6 MCV 91.8 MCH 29.9 MCHC 32.6 RDW 13.1 Plt Count 239 MPV 10.4 Immature Gran % (Auto) 0.4 H Neut % (Auto) 79.3 H Lymph % (Auto) 10.1 L [place] % (Auto) 9.1 Eos % (Auto) 0.9 L Baso % (Auto) 0.2 Lymph # (Auto) 0.81 L [place] # (Auto) 0.73 Eos # (Auto) 0.07 Baso # (Auto) 0.02 Abs Immat Gran (auto) 0.03 H Absolute Neuts (auto) 6.36 Absolute Nucleated RBC 0.00 Nucleated RBC % 0.0 Sodium 138 Potassium 4.2 Chloride 103 Carbon Dioxide 29 Anion Gap 6 BUN 18 Creatinine 0.76 Estim Creat Clear Calc 44 Estimated GFR > 60 Glucose 101 H Calculated Osmolality 287 Calcium 8.8 Total Bilirubin 0.5 AST 10 L ALT 12 L Alkaline Phosphatase 85 Total Protein 6.1 L Albumin 3.1 L Urine Color Light yellow Urine Appearance Clear Urine pH 8.0 Ur Specific [place] 1.010 Urine Protein Negative Urine Glucose (UA) Negative Urine Ketones Negative Ur Blood (Man) Negative Urine Nitrate Negative Urine Bilirubin Negative Urine Urobilinogen 0.2 Leukocyte Esterase Rfl Negative Quality VTE Prophylaxis VTE prophylaxis: pharmacologic ordered -Patient's previous records reviewed on admission -ER notes reviewed in detail on admission -discussed all findings and current treatment plan with patient/Family/POA -Consultations reviewed for recommendations -Patient's disposition for safe discharge discussed with briefcase sewer Dictation performed by [employer] direct speech recognition software, therefore supervisor porcelain department variants and typographical errors may occur. Hospitalist [facility] Advance Care Plan I have confirmed that the patient's Advanced Care Plan is present, code status is documented, or surrogate decision maker is listed in patient medical record.: Yes Medication Reconciliation I have utilized all available resources to obtain, update and review the patients current medications (includes all prescriptions, OTC, herbals, cannabis, and nutritional supplements).: Yes The patient is not eligible for med reconciliation; the patient is in a emergent medical situation where delaying treatment would jeopardize the patients health.: No
[2024-01-28] MEDS: oxyBUTYnin CHLORIDE 2.5 MG TAB PO ×2 (09:37→17:39)
[2024-01-28] MEDS: GABAPENTIN 100 MG CAPSULE PO ×3 (09:37→17:39)
[2024-01-28] MEDS: ARIPiprazole 5 MG TABLET 15 MG PO (09:37)
[2024-01-28] MEDS: FAMOTIDINE 20 MG TABLET 40 MG PO (09:37)
[2024-01-28] MEDS: FERROUS SULFATE 325 MG TABLET DR BY MOUTH ×2 (09:37→17:39)
[2024-01-28] MEDS: DOCUSATE SODIUM 100 MG CAPSULE PO ×2 (09:37→17:40)
[2024-01-28] MEDS: SUCRALFATE 1 GM TABLET PO ×4 (09:38→20:45)
[2024-01-28 09:39] VITALS: PULSE 78
[2024-01-28] MEDS: DULoxetine HCL 30 MG CAPSULE.DR 60 MG PO (09:39)
[2024-01-28] MEDS: METOPROLOL SUCCINATE EXT REL 25 MG TABCR PO (09:39)
[2024-01-28] MEDS: ESCITALOPRAM OXALATE 10 MG TABLET PO (09:39)
[2024-01-28] MEDS: LORazepam (*CRX) 0.5 MG TABLET PO ×2 (09:39→17:39)
[2024-01-28] MEDS: APIXABAN 2.5 MG TABLET PO ×2 (09:40→20:45)
[2024-01-28] MEDS: ASPIRIN 81 MG ENTERIC TABLET PO (09:40)
[2024-01-28] MEDS: MAGNESIUM OXIDE 400 MG TABLET PO ×2 (09:40→17:39)
[2024-01-28] MEDS: CYCLOBENZAPRINE HCL 10 MG TABLET PO ×2 (14:00→17:40)
[2024-01-28 16:00] VITALS: BP 95/44; PULSE 67; RESP 18; TEMP 36.2; O2SAT 97
[2024-01-28] MEDS: MELATONIN 3 MG TABLET PO (20:45)
[2024-01-28] MEDS: LACTULOSE 20 GM/30 ML UDC 13.3333 GM PO (20:46)
[2024-01-29] VITALS: BP 95/45; PULSE 66; RESP 16; TEMP 36.4; O2SAT 96
[2024-01-29 05:25] LABS: Basophils Absolute Auto 0.04 K/mm3 (0.00-0.10); Basophils Percent Auto 0.5 % (0.0-1.0); Eosinophils Absolute Auto 0.16 K/mm3 (0.02-0.50); Eosinophils Percent Auto 2.1 % (1.0-6.0); Hematocrit 32.9 % (35.0-42.0); Hemoglobin 10.7 g/dL (11.7-13.8); Immature Granulocyte Absolute 0.02 K/mm3 (0.00-0.00); Immature Granulocyte Percent A 0.3 % (0.0-0.0); Lymphocytes Absolute Auto 0.96 K/mm3 (1.10-4.50); Lymphocytes Percent Auto 12.6 % (18.0-42.0); Mean Corpuscular HGB Conc 32.5 g/dL (32-36); Mean Corpuscular Hemoglobin 29.7 pg (27.0-31.0); Mean Corpuscular Volume 91.4 fL (78.0-102.0); Mean Platelet Volume 10.7 fl (9.2-11.8); Monocytes Absolute Auto 0.68 K/mm3 (0.10-0.90); Monocytes Percent Auto 8.9 % (2.0-11.0); Neutrophils Absolute Auto 5.76 K/mm3 (1.70-7.20); Neutrophils Percent Auto 75.6 % (50.0-70.0); Platelet Count Result 228 K/mm3 (150-420); Red Cell Distribution Width 12.8 % (11.6-14.4); White Blood Count 7.6 K/mm3 (4.8-10.8)
[2024-01-29 05:51] LABS: Alanine Aminotransferase 12 U/L (14-59); Albumin Level 2.8 g/dL (3.4-5.0); Alkaline Phosphatase 78 U/L (46-116); Anion Gap 6 mmol/L (4-12); Aspartate Amino Transferase < 10 U/L (15-37); Bilirubin,Total 0.4 mg/dL (0.00-1.00); Blood Urea Nitrogen 31 mg/dL (7-18); Calcium 8.6 mg/dL (8.5-10.1); Carbon Dioxide 28 mmol/L (21-32); Chloride 103 mmol/L (98-108); Estimated CRCL calculation 33 ml/min; Estimated Glomerular Filt Rate 51; Glucose 96 mg/dL (70-99); Osmolality Calculated 290 mOsm/kg (285-295); Potassium 4.3 mmol/L (3.5-5.1); Sodium 137 mmol/L (136-145); Total Protein 5.6 g/dL (6.4-8.2)
[2024-01-29] MEDS: MORPHINE SULFATE (*CRX) 2 MG/ML INJ 1 MG IV PUSH (06:58)
[2024-01-29 08:00] VITALS: BP 110/56; PULSE 94; RESP 18; TEMP 36.4; O2SAT 96
[2024-01-29] MEDS: GABAPENTIN 100 MG CAPSULE PO ×3 (09:32→16:42)
[2024-01-29] MEDS: FAMOTIDINE 20 MG TABLET 40 MG PO (09:32)
[2024-01-29] MEDS: ARIPiprazole 5 MG TABLET 15 MG PO (09:32)
[2024-01-29] MEDS: FERROUS SULFATE 325 MG TABLET DR BY MOUTH ×2 (09:33→16:41)
[2024-01-29] MEDS: MAGNESIUM OXIDE 400 MG TABLET PO ×2 (09:33→16:41)
[2024-01-29] MEDS: DULoxetine HCL 30 MG CAPSULE.DR 60 MG PO (09:33)
[2024-01-29] MEDS: ESCITALOPRAM OXALATE 10 MG TABLET PO (09:33)
[2024-01-29] MEDS: LORazepam (*CRX) 0.5 MG TABLET PO ×2 (09:33→16:42)
[2024-01-29] MEDS: oxyBUTYnin CHLORIDE 2.5 MG TAB PO ×2 (09:33→16:43)
[2024-01-29] MEDS: ASPIRIN 81 MG ENTERIC TABLET PO (09:33)
[2024-01-29] MEDS: SUCRALFATE 1 GM TABLET PO ×4 (09:33→20:40)
[2024-01-29] MEDS: DOCUSATE SODIUM 100 MG CAPSULE PO ×2 (09:34→16:42)
[2024-01-29] MEDS: CYCLOBENZAPRINE HCL 10 MG TABLET PO ×3 (09:34→16:43)
[2024-01-29] MEDS: APIXABAN 2.5 MG TABLET PO ×2 (09:34→20:40)
[2024-01-29 09:47] VITALS: PULSE 94
[2024-01-29] MEDS: METOPROLOL SUCCINATE EXT REL 25 MG TABCR PO (09:47)
[2024-01-29] MEDS: polyethylene glycoL 3350 17 GM POWD.PACK PO (09:55)
--- NOTE | 2024-01-29 10:51 | P.PNIM_ITS ---
Progress Note: A&P Assessment and Plan (1) Impaired ambulation: Code(s): R26.2 - Difficulty in walking, not elsewhere classified Status: Acute Assessment and Plan: * Patient unable to ambulate on own new onset with severe pain * XRAY with mild osteoarthritis and previous Rami fracture * CT scan pending * Pain control PO/IV * PT/OT * no loss of bowel or incontinence * Will likely need SNF 01/28/24: * CT scan showing left iliopsoas likely suspicious of muscle strain/Severe lumbar spondylosis and thoracolumbar levoscoliosis * added Flexeril t.i.d. (2) Difficulty in walking: Code(s): R26.2 - Difficulty in walking, not elsewhere classified Status: Acute Assessment and Plan: * SEE ABOVE (3) Arthritis of hip: Code(s): M16.10 - Unilateral primary osteoarthritis, unspecified hip Status: Acute Assessment and Plan: * LT hip pain unable to ambulate due to severe pain * XRAY with mild osteoarthritis * pain control * CT pelvis reviewed (4) Age-related physical debility: Code(s): R54 - Age-related physical debility Status: Acute Assessment and Plan: * SEE ABOVE (5) Atrial fibrillation: Code(s): I48.91 - Unspecified atrial fibrillation Status: Acute Assessment and Plan: * HR rate controlled * resumed Amio and Eliquis (6) Migraine: Code(s): G43.909 - Migraine, unspecified, not intractable, without status migrainosus Status: Acute Assessment and Plan: * Resumed PRN sumatriptan (7) PUD (peptic ulcer disease): Code(s): K27.9 - Peptic ulcer, site unspecified, unspecified as acute or chronic, without hemorrhage or perforation Status: Acute Assessment and Plan: * Resumed PPI and Carafate (8) Chronic anemia: Code(s): D64.9 - Anemia, unspecified Status: Acute Assessment and Plan: * Hgb Stable * resumed home ferrous sulfate * stool softeners as needed Plan Code status: Full code per patient DVT prophylaxis: Eliquis Stress ulcer prophylaxis: Pepcid 20 daily PT/OT notes: PT/OT (SWING) Disposition: patient was admitted to the medical unit due to new onset severe pain and inability to ambulate on own PT/OT ordered and pain control patient will need placement to [facility] facility care coordination consulted for further assistance. Plan to discharge to swing tomorrow for further rehabilitation if no events overnight Time Spent With Patient Time with patient: 15 - 25 minutes Subjective Date/time seen: 01/29/24 10:51 Interval history: patient is an 83-year-old female who was admitted after new onset of inability to ambulate on own showing severe muscle strain and needed pain control. 01/29/2024: Patient up in chair still pain improving no with complaints of constipation. Patient still with limited movement or weight bearing on left side. No other complaints at this time plan to swing tomorrow for Continued rehabilitation if no events overnight. Review of Systems Review of Systems: All systems reviewed & are unremarkable except as noted in HPI and below Exam Narrative: * GENERAL: Alert and oriented x 3. No acute distress. * EYES: EOMI. No scleral icterus. PERRLA. * HEENT: Moist mucous membranes. * LUNGS: Clear to auscultation bilaterally. No accessory muscle use. * CARDIOVASCULAR: Regular rate and rhythm. No murmur. No JVD. S1-S2 * ABDOMEN: Soft, non tenderness and non-distended. No palpable masses. * EXTREMITIES: Severe pain with movement LT hip and pelvis no internal or external rotation, unable to extend of lift LLE due to sever pain 1/5 mobility improving but slow progression * SKIN: No rashes or lesions. Skin warm, dry. * NEUROLOGIC: No focal neurological deficits. CN II-XII grossly intact * PSYCHIATRIC: Appropriate mood and affect. Good judgement and insight. Objective Data Vital Signs Vital Signs: Vital Signs - 24 hr 01/28/24 16:00 01/29/24 00:00 01/29/24 09:47 Temperature 97.1 F L 97.5 F L Pulse Rate 67 66 94 Respiratory Rate 18 16 Blood Pressure 95/44 L 95/45 L Pulse Oximetry 97 96 Oxygen Delivery Room Air Room Air Intake/Output Intake/Output: Intake & Output 01/26/24 01/27/24 01/28/24 01/29/24 23:59 23:59 23:59 23:59 Intake Total 320 1300 250 Output Total 425 Balance -105 1300 250 Meds/Results Medications: Active Medications Generic Name Dose Route Start Last Admin Trade Name Freq PRN Reason Stop Dose Admin Acetaminophen 650 mg 01/27/24 10:05 Acetaminophen 325 Mg Tablet PO Q4H PRN Mild Pain (1-3) or Fever Amiodarone HCl 200 mg 01/30/24 09:00 Amiodarone Hcl 200 Mg Tablet PO Q72H [facility] Apixaban 2.5 mg 01/27/24 11:00 01/29/24 09:34 Apixaban 2.5 Mg Tablet PO 2.5 mg Q12HR LOKI Administration Aripiprazole 15 mg 01/27/24 11:00 01/29/24 09:32 Aripiprazole 5 Mg Tablet PO 15 mg DAILY LOKI Administration Aspirin 81 mg 01/27/24 11:00 01/29/24 09:33 Aspirin 81 Mg Enteric Tablet PO 81 mg DAILY LOKI Administration Cyclobenzaprine HCl 10 mg 01/28/24 13:00 01/29/24 09:34 Cyclobenzaprine Hcl 10 Mg Tablet PO 10 mg TID LOKI Administration Docusate Sodium 100 mg 01/27/24 17:00 01/29/24 09:34 Docusate Sodium 100 Mg Capsule PO 100 mg BID LOKI Administration Duloxetine HCl 60 mg 01/27/24 11:00 01/29/24 09:33 Duloxetine Hcl 30 Mg Capsule.Dr PO 60 mg QAM LOKI Administration Escitalopram Oxalate 10 mg 01/27/24 11:00 01/29/24 09:33 Escitalopram Oxalate 10 Mg Tablet PO 10 mg DAILY LOKI Administration Famotidine 40 mg 01/27/24 11:00 01/29/24 09:32 Famotidine 20 Mg Tablet PO 40 mg DAILY LOKI Administration Ferrous Sulfate 325 mg 01/27/24 17:00 01/29/24 09:33 Ferrous Sulfate [address] BY MOUTH 325 mg BID LOKI Administration Gabapentin 100 mg 01/27/24 13:00 01/29/24 09:32 Gabapentin 100 Mg Capsule PO 100 mg TID LOKI Administration Lactulose 13.3333 gm 01/27/24 21:00 01/28/24 20:46 Lactulose 20 Gm/30 Ml Udc PO 13.3333 gm HS LOKI Administration Lorazepam 0.5 mg 01/27/24 17:00 01/29/24 09:33 Lorazepam (*Crx) 0.5 Mg Tablet PO 0.5 mg BID LOKI Administration Magnesium Oxide 400 mg 01/27/24 17:00 01/29/24 09:33 Magnesium Oxide 400 Mg Tablet PO 400 mg BID [facility] Administration Melatonin 3 mg 01/27/24 21:00 01/28/24 20:45 Melatonin 3 Mg Tablet PO 3 mg HS [facility] Administration Metoprolol Succinate 25 mg 01/27/24 11:00 01/29/24 09:47 Metoprolol Succinate Ext Rel 25 Mg Tabcr PO 25 mg DAILY [facility] Administration Morphine Sulfate 1 mg 01/27/24 10:09 01/29/24 06:58 Morphine Sulfate (*Crx) 2 Mg/Ml Inj IV PUSH 1 mg Q4H PRN Administration Pain Rated 7-10 Ondansetron HCl 4 mg 01/27/24 10:05 Ondansetron Inj 4 Mg/2 Ml Vial IV PUSH Q6H PRN Nausea And Vomiting Oxybutynin Chloride 2.5 mg 01/27/24 17:00 01/29/24 09:33 Oxybutynin Chloride 2.5 Mg Tab PO 2.5 mg BID [facility] Administration Oxycodone/Acetaminophen 1 tablet 01/27/24 10:30 01/28/24 15:51 Oxycodone/Acetaminophen (*Crx) 5-325 Mg Tablet PO 1 tablet Q4H PRN Administration Pain Rated 4-6 Polyethylene Glycol 17 gm 01/27/24 09:00 Polyethylene Glycol 3350 17 Gm Powd.Pack PO DAILY PRN Constipation Sucralfate 1 gm 01/27/24 13:00 01/29/24 09:33 Sucralfate 1 Gm Tablet PO 1 gm QID [facility] Administration Sumatriptan Succinate 50 mg 01/27/24 10:07 01/28/24 04:06 Sumatriptan Succinate 25 Mg Tablet PO 50 mg DAILY PRN Administration Headache Radiology Results: ITS Impressions Hip/Pelvis X-Ray 01/27/24 06:47 IMPRESSION: 1. Mild osteoarthritis of the hips. Miscellaneous CT Procedure 01/27/24 12:19 IMPRESSION: 1. Fat stranding around left iliopsoas muscle distally. This finding is suspicious for a muscle strain. 2. Severe lumbar spondylosis. 3. Thoracolumbar levoscoliosis. Labs Labs: Laboratory Results - last 24 hr 01/29/24 05:14 WBC 7.6 RBC 3.60 L Hgb 10.7 L Hct 32.9 L MCV 91.4 MCH 29.7 MCHC 32.5 RDW 12.8 Plt Count 228 MPV 10.7 Immature Gran % (Auto) 0.3 H Neut % (Auto) 75.6 H Lymph % (Auto) 12.6 L [place] % (Auto) 8.9 Eos % (Auto) 2.1 Baso % (Auto) 0.5 Lymph # (Auto) 0.96 L [place] # (Auto) 0.68 Eos # (Auto) 0.16 Baso # (Auto) 0.04 Abs Immat Gran (auto) 0.02 H Absolute Neuts (auto) 5.76 Absolute Nucleated RBC 0.00 Nucleated RBC % 0.0 Sodium 137 Potassium 4.3 Chloride 103 Carbon Dioxide 28 Anion Gap 6 BUN 31 H Creatinine 1.04 H Estim Creat Clear Calc 33 Estimated GFR 51 L Glucose 96 Calculated Osmolality 290 Calcium 8.6 Total Bilirubin 0.4 AST < 10 L ALT 12 L Alkaline Phosphatase 78 Total Protein 5.6 L Albumin 2.8 L Quality VTE Prophylaxis VTE prophylaxis: pharmacologic ordered -Patient's previous records reviewed on admission -ER notes reviewed in detail on admission -discussed all findings and current treatment plan with patient/Family/POA -Consultations reviewed for recommendations -Patient's disposition for safe discharge discussed with case therapist Dictation performed by [email or web address] direct speech recognition software, therefore building maintenance repairer variants and typographical errors may occur. Hospitalist MIPS Advance Care Plan I have confirmed that the patient's Advanced Care Plan is present, code status is documented, or surrogate decision maker is listed in patient medical record.: Yes Medication Reconciliation I have utilized all available resources to obtain, update and review the patients current medications (includes all prescriptions, OTC, herbals, cannabis, and nutritional supplements).: Yes The patient is not eligible for med reconciliation; the patient is in a emergent medical situation where delaying treatment would jeopardize the patients health.: No
[2024-01-29] MEDS: oxyCODONE/ACETAMINOPHEN (*CRX) 5-325 MG TABLET 1 TABLET PO ×2 (13:13→20:41)
[2024-01-29 16:00] VITALS: BP 107/44; PULSE 78; RESP 16; TEMP 37; O2SAT 99
--- NOTE | 2024-01-29 18:31 | PC.NURSE ---
Patient asked to be assisted back to bed. Patient assisted with 1 GB and walker. Call light in reach. No c/o at this time.
[2024-01-29] MEDS: LACTULOSE 20 GM/30 ML UDC 13.3333 GM PO (20:38)
[2024-01-29] MEDS: MELATONIN 3 MG TABLET PO (20:40)
[2024-01-30] VITALS: BP 103/55; PULSE 73; RESP 16; TEMP 36.7; O2SAT 93
[2024-01-30 07:09] LABS: Basophils Absolute Auto 0.03 K/mm3 (0.00-0.10); Basophils Percent Auto 0.4 % (0.0-1.0); Eosinophils Absolute Auto 0.19 K/mm3 (0.02-0.50); Eosinophils Percent Auto 2.8 % (1.0-6.0); Hematocrit 29.8 % (35.0-42.0); Hemoglobin 9.8 g/dL (11.7-13.8); Immature Granulocyte Absolute 0.02 K/mm3 (0.00-0.00); Immature Granulocyte Percent A 0.3 % (0.0-0.0); Lymphocytes Absolute Auto 0.92 K/mm3 (1.10-4.50); Lymphocytes Percent Auto 13.4 % (18.0-42.0); Mean Corpuscular HGB Conc 32.9 g/dL (32-36); Mean Corpuscular Hemoglobin 29.6 pg (27.0-31.0); Mean Platelet Volume 10.6 fl (9.2-11.8); Monocytes Absolute Auto 0.81 K/mm3 (0.10-0.90); Monocytes Percent Auto 11.8 % (2.0-11.0); Neutrophils Percent Auto 71.3 % (50.0-70.0); Platelet Count Result 205 K/mm3 (150-420); Red Blood Count 3.31 M/mm3 (4.20-5.40); White Blood Count 6.9 K/mm3 (4.8-10.8)
[2024-01-30 07:29] LABS: Alanine Aminotransferase 12 U/L (14-59); Albumin Level 2.6 g/dL (3.4-5.0); Alkaline Phosphatase 78 U/L (46-116); Anion Gap 6 mmol/L (4-12); Aspartate Amino Transferase < 10 U/L (15-37); Bilirubin,Total 0.5 mg/dL (0.00-1.00); Blood Urea Nitrogen 29 mg/dL (7-18); Calcium 8.4 mg/dL (8.5-10.1); Carbon Dioxide 28 mmol/L (21-32); Chloride 103 mmol/L (98-108); Estimated CRCL calculation 35 ml/min; Estimated Glomerular Filt Rate 54; Glucose 92 mg/dL (70-99); Osmolality Calculated 289 mOsm/kg (285-295); Sodium 137 mmol/L (136-145); Total Protein 5.4 g/dL (6.4-8.2)
[2024-01-30 08:00] VITALS: BP 111/60; PULSE 89; RESP 16; TEMP 36.6; O2SAT 96
[2024-01-30] MEDS: polyethylene glycoL 3350 17 GM POWD.PACK PO (08:32)
[2024-01-30] MEDS: DULoxetine HCL 30 MG CAPSULE.DR 60 MG PO (08:33)
[2024-01-30] MEDS: MAGNESIUM OXIDE 400 MG TABLET PO (08:34)
[2024-01-30] MEDS: oxyBUTYnin CHLORIDE 2.5 MG TAB PO (08:34)
[2024-01-30] MEDS: SUCRALFATE 1 GM TABLET PO (08:34)
[2024-01-30] MEDS: FAMOTIDINE 20 MG TABLET 40 MG PO (08:34)
[2024-01-30 08:35] VITALS: PULSE 89
[2024-01-30] MEDS: AMIODARONE HCL 200 MG TABLET PO (08:35)
[2024-01-30] MEDS: ARIPiprazole 5 MG TABLET 15 MG PO (08:35)
[2024-01-30] MEDS: ESCITALOPRAM OXALATE 10 MG TABLET PO (08:35)
[2024-01-30 08:36] VITALS: PULSE 89
[2024-01-30] MEDS: METOPROLOL SUCCINATE EXT REL 25 MG TABCR PO (08:36)
[2024-01-30] MEDS: FERROUS SULFATE 325 MG TABLET DR BY MOUTH (08:36)
[2024-01-30] MEDS: LORazepam (*CRX) 0.5 MG TABLET PO (08:36)
[2024-01-30] MEDS: GABAPENTIN 100 MG CAPSULE PO (08:37)
[2024-01-30] MEDS: APIXABAN 2.5 MG TABLET PO (08:37)
[2024-01-30] MEDS: DOCUSATE SODIUM 100 MG CAPSULE PO (08:37)
[2024-01-30] MEDS: CYCLOBENZAPRINE HCL 10 MG TABLET PO (08:37)
[2024-01-30] MEDS: ASPIRIN 81 MG ENTERIC TABLET PO (08:38)
--- NOTE | 2024-01-30 09:00 | PC.NURSE ---
Patient discharging from inpatient and admitting to swing bed.
--- NOTE | 2024-01-30 09:03 | P.DS_ITS ---
DS: Admitting Diagnosis Discharge Date 01/30/2024 Admitting Diagnosis acute inability to ambulate/Muscle strain/Acute Pain DS: Discharge Diagnosis Discharge Diagnosis (1) Impaired ambulation: Code(s): R26.2 - Difficulty in walking, not elsewhere classified Status: Acute (2) Difficulty in walking: Code(s): R26.2 - Difficulty in walking, not elsewhere classified Status: Acute (3) Arthritis of hip: Code(s): M16.10 - Unilateral primary osteoarthritis, unspecified hip Status: Acute (4) Age-related physical debility: Code(s): R54 - Age-related physical debility Status: Acute (5) Atrial fibrillation: Code(s): I48.91 - Unspecified atrial fibrillation Status: Acute (6) Migraine: Code(s): G43.909 - Migraine, unspecified, not intractable, without status migrainosus Status: Acute (7) PUD (peptic ulcer disease): Code(s): K27.9 - Peptic ulcer, site unspecified, unspecified as acute or chronic, without hemorrhage or perforation Status: Acute Assessment and Plan: * Resumed PPI and Carafate (8) Chronic anemia: Code(s): D64.9 - Anemia, unspecified Status: Acute Plan Disposition: Discharged to [facility] DS: Summary Hospital Course Reason for hospitalization: acute inability to ambulate/Muscle strain/Acute Pain Hospital Course: Patient is an 83-year-old female who presented to the emergency department from her assisted living facility with complaints of inability to ambulate. Per patient and daughter at bedside patient was unable to get bed or ambulate due to severe pelvic pain patient and daughter report this has been progressively getting worse however this is the 1st time the patient has not been able to ambulate on her own. patient denied she has had any loss bowel or incontinence, denied any chest pain, shortness breath, nausea, vomiting, or abdominal pain. patient did endorsed severe left-sided hip pain and inability to apply any pressure to left side. labs were unremarkable in the emergency department hip and pelvis x-ray just showed old rami pelvic fracture and mild osteoarthritis. patient was admitted to the medical unit for further pain control physical and occupational therapy and inability to ambulate. patient will need placement to a custodial facility for further rehabilitation. CT showed Fat stranding around left iliopsoas muscle distally. This finding is suspicious for a muscle strain. Patient slow progression to ambulate due to pain but improving daily. Patient was discharged to [facility] bed for further rehabilitation and pain control with plan to return to her assisted living Status at Discharge Overall status at discharge: patient is progressing back to baseline Time Spent with Patient Time attestation: Total time spent providing and/or coordinating discharge services: Time spent: Less than 30 minutes Exam Narrative: * GENERAL: Alert and oriented x 3. No acute distress. * EYES: EOMI. No scleral icterus. PERRLA. * HEENT: Moist mucous membranes. * LUNGS: Clear to auscultation bilaterally. No accessory muscle use. * CARDIOVASCULAR: Regular rate and rhythm. No murmur. No JVD. S1-S2 * ABDOMEN: Soft, non tenderness and non-distended. No palpable masses. * EXTREMITIES: Severe pain with movement LT hip and pelvis no internal or external rotation, unable to extend of lift LLE due to sever pain 1/5 mobility improving but slow progression * SKIN: No rashes or lesions. Skin warm, dry. * NEUROLOGIC: No focal neurological deficits. CN II-XII grossly intact * PSYCHIATRIC: Appropriate mood and affect. Good judgement and insight. DS: Data Data Completed and Pending Labs on day of discharge: Labs from last 24 hours 01/30/24 06:32 WBC 6.9 RBC 3.31 L Hgb 9.8 L Hct 29.8 L MCV 90.0 MCH 29.6 MCHC 32.9 RDW 13.0 Plt Count 205 MPV 10.6 Immature Gran % (Auto) 0.3 H Neut % (Auto) 71.3 H Lymph % (Auto) 13.4 L [place] % (Auto) 11.8 H Eos % (Auto) 2.8 Baso % (Auto) 0.4 Lymph # (Auto) 0.92 L [place] # (Auto) 0.81 Eos # (Auto) 0.19 Baso # (Auto) 0.03 Abs Immat Gran (auto) 0.02 H Absolute Neuts (auto) 4.90 Absolute Nucleated RBC 0.00 Nucleated RBC % 0.0 Sodium 137 Potassium 4.0 Chloride 103 Carbon Dioxide 28 Anion Gap 6 BUN 29 H Creatinine 0.98 Estim Creat Clear Calc 35 Estimated GFR 54 L Glucose 92 Calculated Osmolality 289 Calcium 8.4 L Total Bilirubin 0.5 AST < 10 L ALT 12 L Alkaline Phosphatase 78 Total Protein 5.4 L Albumin 2.6 L Imaging Radiologist's impression: [facility] [place] [address] [place] [address] CT Scan Report Signed Patient: Emerald Reeves : 1940 MR#: [id number] Age: 83 Acct:[id number] Loc: [id number] ADM Date: 01/27/24Attending Dr: Kvng Longoria M.D. Ordering Physician: Nu Minor APRN Date of Service: 01/27/24 Procedure(s): CT abd pelvis lumbar wo con Accession Number(s): [id number] cc: Nu Minor APRN; Bernard Longoria MD; Varghese, Jarret Ramos MD~ EXAMINATION: CT abd pelvis lumbar wo con DATE: 01/27/2024 11:53 INDICATION: Generalized abdominal pain. Left hip pain. TECHNIQUE: Computed tomography (CT) of the abdomen and pelvis and lumbar spine was performed without intravenous contrast. Automated exposure control and iterative reconstruction technique were employed. The dose-length product was 725.22 mGy-cm. COMPARISON: None FINDINGS: CT ABDOMEN AND PELVIS: The visualized portions of the lung bases demonstrate mild atelectasis. No pleural effusion. Cardiomegaly is noted. There are calcifications of the aortic valve. No pericardial effusion. There are surgical changes of the stomach. The liver and spleen are normal. There are gallstones in the gallbladder, which is distended. The pancreas and adrenal glands are normal. An kidneys are normal. There is no urolithiasis. The bladder is distended. There are changes of right hemicolectomy. There are changes of ventral hernia repair. There are no pathologically enlarged lymph nodes. There is no free intraperitoneal fluid. There is fat stranding around left iliopsoas muscle distally. There is mild osteoarthritis of the hips. CT LUMBAR SPINE: There is 13 degrees levoscoliosis of thoracolumbar spine. There is a chronic compression fracture of T12. There is a chronic burst fracture of L1. There is mildly decreased disc height at L1-L2, moderately decreased disc at L2-L3 and L3-L4, severely decreased disc height at L4-L5 and L5-S1. The following disc levels are specifically discussed: L1-L2: The disc is bulging. There is moderate right and mild left facet joint osteoarthritis. There is mild bilateral neural foraminal stenosis. There is mild central canal stenosis. L2-L3: The disc is bulging. There is severe right and mild left facet joint osteoarthritis. There is mild bilateral neural foraminal stenosis. There is mild central canal stenosis. L3-L4: The disc is bulging. There is severe right and mild left facet joint osteoarthritis. There is mild bilateral neural foraminal stenosis. There is mild central canal stenosis. L4-L5: The disc is bulging. There is severe bilateral facet joint osteoarthr itis. There is mild bilateral neural foraminal stenosis. There is mild central canal stenosis. L5-S1: The disc is bulging. There is severe bilateral facet joint osteoarthritis. There is mild bilateral neural foraminal stenosis. There is mild central canal stenosis. IMPRESSION: 1. Fat stranding around left iliopsoas muscle distally. This finding is suspicious for a muscle strain. 2. Severe lumbar spondylosis. 3. Thoracolumbar levoscoliosis. Discharge Plan Discharge Attending physician on discharge: Kvng Longoria Discharging Clinician: Nu Minor Anticipated Discharge Date/Time: 01/30/24 08:58 Patient Disposition: Hospital Swing Bed Activity: as tolerated Diet: heart healthy Discharge Instructions: You are being discharged to [facility] for continued physical and occupational therapy after inability to ambulate following a muscle strain. How can you care for yourself at home? ? Keep track of any new symptoms or changes in your symptoms. ? Rest until you feel better. ? Be safe with medicines. Take your medicines exactly as prescribed. Call your doctor if you think you are having a problem with your medicine. ? Do not drive after taking a prescription pain medicine. ? Ensure to follow-up with primary care physician as indicated and provide updated medication list provided to you at discharge. When should you call for help? Call 911 anytime you think you may need emergency care. For example, call if: ? You passed out (lost consciousness). Call your doctor now or seek immediate medical care if: ? You have new symptoms like fever, difficulty breathing, Chest pain, vomiting, or rash. ? You have new or different pain. ? You are confused and are having trouble thinking clearly. ? Your symptoms are getting worse. Watch closely for changes in your health, and be sure to contact your doctor if: ? You do not get better as expected. Patient Instructions: Antibiotic Form, Apixaban (By mouth), Muscle Strain (DC) Patient Language: Georgian Stand Alone Forms: General Discharge Information Follow-up/Referrals: Varghese,MD Jarret [Primary Care Provider] - 4 Weeks Discharge Medications: New polyethylene glycol 3350 [Miralax] 17 gram Powder In Packet 17 g PO QAM Qty: 1 0RF cyclobenzaprine 10 mg Tablet 10 mg PO TID Qty: 1 0RF Continued acetaminophen [Tylenol] 325 mg tablet 325 mg PO DAILY famotidine [Pepcid] 40 mg tablet 40 mg PO DAILY melatonin 3 mg tablet 3 mg PO HS aspirin [Adult Low Dose Aspirin] 81 mg tablet,delayed release (DR/EC) 81 mg PO DAILY magnesium oxide [MagOx] 400 mg (241.3 mg magnesium) tablet 400 mg PO BID lorazepam [Ativan] 0.5 mg tablet 0.5 mg PO BID omeprazole 20 mg capsule,delayed release(DR/EC) 20 mg PO DAILY metoprolol succinate [Toprol XL] 25 mg tablet extended release 24 hr 25 mg PO DAILY oxybutynin chloride 5 mg tablet 2.5 mg PO BID docusate sodium [Stool Softener] 100 mg tablet 100 mg PO BID escitalopram oxalate [Lexapro] 10 mg tablet 10 mg PO DAILY aripiprazole [Abilify] 15 mg tablet 15 mg PO DAILY duloxetine [Cymbalta] 60 mg capsule,delayed release(DR/EC) 60 mg PO DAILY calcium carbonate-vitamin D3 [Calcium 600 + D(3)] 600 mg-10 mcg (400 unit) tablet 1 tablet PO DAILY ferrous sulfate 324 mg (65 mg iron) tablet,delayed release (DR/EC) 324 mg PO BID Eliquis 2.5 mg tablet 2.5 mg PO BID hydrocodone-acetaminophen 5-325 mg tablet 1 tablet PO BID sucralfate [Carafate] 1 gram tablet 1 g PO QID sumatriptan succinate [Imitrex] 50 mg tablet 50 mg PO PRN PRN (Reason: Headache) Rx Instructions: take one tablet by mouth every day as needed for headache. max of 200 mg. gabapentin [Neurontin] 100 mg capsule 100 mg PO TID polyethylene glycol 3350 [Miralax] 17 gram/dose powder 17 g PO PRN PRN (Reason: Constipation) Rx Instructions: Mix 17 gm (one cap full) in 8 oz of liquid and drink daily as needed for constipation. lactulose [Enulose] 10 gram/15 mL solution 20 ml PO Q8-10H diclofenac sodium [Voltaren Arthritis Pain] 1 % gel See Rx Instructions .ROUTE .COMPLEX Rx Instructions: use as directed. Healthy Eyes SuperVision2 250-90-10-1 mg capsule 1 cap PO BID Changed amiodarone [Pacerone] 200 mg tablet 200 mg PO Q72H Qty: 1 0RF Rx Instructions: every three days for atrial fibrillation. Date of admission: 01/27/24 08:31 Primary Care Provider: LeoJarret Admitting Provider: Kvng Longoria Attending physician on admission: Nu Minor Condition: Stable Quality -Patient's previous records reviewed on admission -ER notes reviewed in detail on admission -discussed all findings and current treatment plan with patient/Family/POA -Consultations reviewed for recommendations -Patient's disposition for safe discharge discussed with social work case manager Dictation performed by [employer] direct speech recognition software, therefore squad boss variants and typographical errors may occur. Hospitalist MIPS Heart Failure (Exclusion) Patient has history of Heart Transplant or Left Ventricular Assistive Device?: No IF YES, STOP HERE Heart Failure (Qualifier) Patient has current or prior documentation of LVEF less than or equal to 40%, or mod/servere depressed LVSF?: No IF NO, STOP HERE
== END 2024-01-30 09:00 | disposition swing bed (61) | DRG 537 ==
LOC: CHSED 08:31 → CHS2ND 08:45
PROVIDERS: Internal Medicine Critical Care Medicine; Admitting Provider Internal Medicine; Emergency Provider Emergency Medicine; PCP Family Medicine; Visit Provider Nurse Practitioner Family
DX: M47.816 Spondylosis without myelopathy or radiculopathy, lumbar region (principal); M16.12 Unilateral primary osteoarthritis, left hip; I48.20 Chronic atrial fibrillation, unspecified; K21.9 Gastro-esophageal reflux disease without esophagitis; F41.9 Anxiety disorder, unspecified; F32.A Depression, unspecified; Z96.653 Presence of artificial knee joint, bilateral; Z79.01 Long term (current) use of anticoagulants; Z79.82 Long term (current) use of aspirin; Z87.11 Personal history of peptic ulcer disease; Z91.81 History of falling; S76.012A Strain of muscle, fascia and tendon of left hip, initial encounter; M16.10 Unilateral primary osteoarthritis, unspecified hip; R26.2 Difficulty in walking, not elsewhere classified; R54 Age-related physical debility; G43.909 Migraine, unspecified, not intractable, without status migrainosus
CPT/HCPCS: 36415; 72131; 73502; 74176; 80053; 81003; 82550; 83605; 83690; 85025; 96372; 97110; 97161; 97166; 97530; 99285; A9270; J1171; J2270

== ENCOUNTER 2024-01-30 09:01 | Inpatient (IN) | payer MEDICARE, SELFPAY ==
--- NOTE | ~2024-01-30 | XR_ITS ---
XR wrist RT 2V Ordering provider: Helena Wynne APRN History: . fall. PAIN. . Comparison: (3) FINDINGS: BONES: No acute fracture or dislocation. No definite scaphoid fracture. JOINT SPACES: Osteoarthritic changes seen in the first carpometacarpal joint. Osteoarthritic changes between the scaphoid and trapezium bone is noted. SOFT TISSUES: Normal. IMPRESSION: No acute osseous abnormality right wrist. Reviewed, dictated and finalized at location A.
--- NOTE | ~2024-01-30 | CT_ITS ---
CT cervical spine wo con Ordering provider: Helena Wynne APRN History: . FALL. POSTERIOR HEAD INJURY. . Comparison: None. Technique: CT of the cervical spine was performed without contrast. Sagittal and coronal reformatted images were also obtained and reviewed. Automated exposure control and iterative reconstruction mariaelena hnique were employed. The dose-length product was 199.51 mGy-cm. FINDINGS: VERTEBRAE: Longitudinal lucency seen in the posterior aspect of the C2 vertebra. Follow-up and if war ranted MRI is advised. Kyphosis centered at C4 is noted. Minimal anterolisthesis at the level of C2-C3. Otherwise, No subluxation or other possible acute fracture. The occipital condyles are intact. DISC SPACES: Narrowing of the disc spaces C4-C5, C5-C6 and C6-C7. Multilevel facet joint disease. Mul tilevel uncovertebral joint osteoarthritic changes. PARASPINOUS SOFT TISSUES: Pneumonia in both upper lobe in the lungs. IMPRESSION: Possibility of longitudinal fracture of the posterior aspect of the second cervical vertebra. MRI is advised No other acute osseous abnormality cervical spine. Multi level degenerative disc disease and facet joint disease. Bilateral upper lobe pneumonia. Proper imaging evaluation advised. Reviewed, dictated and finalized at location A. IMPRESSION: Possibility of longitudinal fracture of the posterior aspect of the second cer vical vertebra. MRI is advised No other acute osseous abnormality cervical spin e. Multi level degenerative disc disease and facet joint disease. Bilateral upper lobe pneumonia. Proper imaging evaluation advised.
--- NOTE | ~2024-01-30 | XR_ITS ---
XR chest 1V portable Ordering provider: Helena Wynne APRN History: 83 years Female with . cough . Comparison: None. FINDINGS: MEDIASTINUM: The cardiac silhouette is slightly enlarged. Congestive cecily. LUNGS: No , effusions or pneumothorax. Bilateral interstitial and alveolar opacification suggestive o f pulmonary edema versus pneumonia. Underlying fibrotic changes is not excluded. Focal area of opacif ication in the right upper lobe may indicate pneumonia. Follow-up to resolution advised. OTHER: No free air under the diaphragm. Right shoulder osteoarthritic changes. IMPRESSION: Cardiomegaly with cardiac decompensation and pulmonary edema. Superimposed pneumonia is highly sugges tive. Reviewed, dictated and finalized at location A. IMPRESSION: Cardiomegaly with cardiac decompensation and pulmonary edema. Superimposed pneu monia is highly suggestive.
--- NOTE | ~2024-01-30 | XR_ITS ---
XR elbow RT 2V Ordering provider: Helena Wynne APRN History: . fall. PAIN. . Comparison: None. FINDINGS: BONES: Possible lucency in the neck of the radius which may indicate a fracture. JOINT SPACES: Osteoarthritic changes are noted with narrowing and marginal osteophytes.. SOFT TISSUES: Minimal elevation of the anterior fat pad.. No definite joint effusion. IMPRESSION: Possibility of fracture in the proximal radius cannot be excluded. Follow-up advised. Osteoarthritic changes. Reviewed, dictated and finalized at location A. IMPRESSION: Possibility of fracture in the proximal radius cannot be excluded. Follow-up ad vised. Osteoarthritic changes.
--- NOTE | ~2024-01-30 | CT_ITS ---
CT brain wo con Ordering provider: Helena Wynne APRN History: 83 years Female with . fall. POSTERIOR HEAD PAIN. ALTERED MENTAL STATUS. . Comparison: None. Technique: CT of the head without contrast. Radiation reduction technique utilized. The dose-length product was 605.33 mGy-cm. FINDINGS: BRAIN PARENCHYMA AND CSF SPACES: Mild leukoaraiosis and diffuse cortical atrophy. Mild atheromatous d isease. No midline shift, mass effect or hemorrhage. The brain parenchyma and CSF spaces are otherwi se normal. VISUALIZED PARANASAL SINUSES: Well aerated. MASTOIDS: Well aerated. BONES: The bones appear intact. SOFT TISSUES: Visualized nasopharynx is normal. Superficial soft tissues are normal. IMPRESSION: No acute intracranial findings. Reviewed, dictated and finalized at location A.
--- NOTE | ~2024-01-30 | XR_ITS ---
XR shoulder RT min 2V Ordering provider: Helena Wynne APRN History: . fall. PAIN. . Comparison: None. FINDINGS: BONES: No acute fracture or dislocation. Elevation of the humeral head. Osteophyte formation seen in the acromion process. JOINT SPACES: The acromioclavicular joint is normal. The glenohumeral joint is normal. SOFT TISSUES: Normal. IMPRESSION: No acute osseous abnormality right shoulder. Elevation of the humeral head which may indicate rotator cuff tear. Clinical correlation advised. Reviewed, dictated and finalized at location A. IMPRESSION: No acute osseous abnormality right shoulder. Elevation of the humeral head which may indicate rotator cuff tear. Clinical co rrelation advised.
--- NOTE | ~2024-01-30 | CT_ITS ---
Procedure: CT elbow RT wo con Ordering provider: Helena Wynne APRN History: . FALL. RIGHT ELBOW PAIN. PT UNCOOPERTIVE. . Comparison: None. Technique: Thin slice axial CT of the No IV contrast was given. Sagittal and coronal reformatted imag es were also obtained and reviewed. Radiation reduction technique utilized. The dose-length product was 1198.26 mGy-cm. Findings: BONES: No evidence of fractures seen. JOINT SPACES: Osteoarthritic changes with osteophytes seen in the ulna olecranon and coronoid. SOFT TISSUES: Normal. IMPRESSION: No definite fractures seen. Reviewed, dictated and finalized at location A. IMPRESSION: No definite fractures seen.
[2024-01-30 09:42] VITALS: BMI 27.3
[2024-01-30] MEDS: ACETAMINOPHEN 325 MG TABLET 650 MG PO (10:21)
[2024-01-30] MEDS: CYCLOBENZAPRINE HCL 10 MG TABLET PO ×2 (13:14→16:49)
[2024-01-30] MEDS: SUCRALFATE 1 GM TABLET PO ×3 (13:14→20:10)
[2024-01-30] MEDS: GABAPENTIN 100 MG CAPSULE PO ×2 (13:17→16:50)
[2024-01-30 16:00] VITALS: BP 95/34; PULSE 71; RESP 16; TEMP 36.2; O2SAT 97
[2024-01-30] MEDS: LORazepam (*CRX) 0.5 MG TABLET PO (16:49)
[2024-01-30] MEDS: MAGNESIUM OXIDE 400 MG TABLET PO (16:49)
[2024-01-30] MEDS: FERROUS SULFATE 325 MG TABLET DR BY MOUTH (16:50)
[2024-01-30] MEDS: APIXABAN 2.5 MG TABLET PO (16:50)
[2024-01-30] MEDS: oxyBUTYnin CHLORIDE 2.5 MG TAB PO (16:50)
[2024-01-30] MEDS: OPTI-GEN TAB 1 TABLET PO (16:51)
[2024-01-30] MEDS: DOCUSATE SODIUM 100 MG CAPSULE PO (16:51)
[2024-01-30] MEDS: MELATONIN 3 MG TABLET PO (20:10)
[2024-01-30] MEDS: oxyCODONE/ACETAMINOPHEN (*CRX) 10-325 MG TABLET 1 TAB PO (20:10)
[2024-01-30] MEDS: LACTULOSE 20 GM/30 ML UDC 13.3333333 GM PO (20:11)
--- NOTE | 2024-01-30 22:12 | PC.NURSE ---
PRN Atarax not effective to help patient's anxiety. PRN Xanax given per order.
[2024-01-31] VITALS: BP 118/48; PULSE 99; RESP 16; TEMP 36.6; O2SAT 97
[2024-01-31 08:00] VITALS: BP 127/50; PULSE 76; RESP 14; TEMP 36.6; O2SAT 96
--- NOTE | 2024-01-31 08:03 | P.HP_ITS ---
H&P: HPI History of Present Illness Date/Time: 01/31/24 08:03 Chief Complaint: Severe pain/impaired mobility Narrative: Patient is an 83-year-old female who was admitted to [facility] swing bed after complaints of inability to ambulate and admitted to medical for evaluation. Per patient and daughter at bedside patient was unable to get bed or ambulate due to severe pelvic pain patient and daughter report this has been progressively getting worse however this is the 1st time the patient has not been able to ambulate on her own. patient denied she has had any loss bowel or incontinence, denied any chest pain, shortness breath, nausea, vomiting, or abdominal pain. patient did endorsed severe left-sided hip pain and inability to apply any pressure to left side. labs were unremarkable during nh dical admission, hip and pelvis x-ray just showed old rami pelvic fracture and mild osteoarthritis. CT did show muscle strain. Patient required pain control and was evaluated by PT/OT and recommendation was swing bed for continued Rehabilitation plan is to return back to her assisted living at discharge. Review of Systems Review of Systems: All systems reviewed & are unremarkable except as noted in HPI and below PMFSH Past Medical History Medical History Anxiety and depression Atrial fibrillation Chronic anemia Gastric perforation PUD (peptic ulcer disease) Surgical History Surgical History History of knee replacement Social History Social History Smoking status: Never smoker Alcohol intake: never Substance use: never Substance use type: does not use Do You Feel Safe in your Home?: Yes Lack of Transportation: No Lack of Food: Never True Current Housing: I Have Housing Concerned About Future Housing: No Difficulty Paying Gas/Electric Bills: No Difficulty Paying for Meds: No Currently Unemployed: No Education: High School Diploma/GED Difficulty w/ Childcare or Family Care: No Spiritual care concerns: No Meds Home Medications and Allergies Home Medications Medication Instructions Recorded Confirmed Type acetaminophen 325 mg tablet 325 mg PO DAILY 01/27/24 01/30/24 History (Tylenol) apixaban 2.5 mg tablet (Eliquis) 2.5 mg PO BID 01/27/24 01/30/24 History aripiprazole 15 mg tablet (Abilify) 15 mg PO DAILY 01/27/24 01/30/24 History aspirin 81 mg tablet,delayed 81 mg PO DAILY 01/27/24 01/30/24 History release (Adult Low Dose Aspirin) calcium 600 mg (as 1 tablet PO DAILY 01/27/24 01/30/24 History carbonate)-vitamin D3 10 mcg (400 unit) tablet (Calcium 600 + D(3)) diclofenac sodium 1 % topical gel See Rx Instructions .Route .COMPLEX 01/27/24 01/30/24 History (Voltaren Arthritis Pain) docusate sodium 100 mg tablet 100 mg PO BID 01/27/24 01/30/24 History (Stool Softener) duloxetine 60 mg capsule,delayed 60 mg PO DAILY 01/27/24 01/30/24 History release (Cymbalta) escitalopram oxalate 10 mg tablet 10 mg PO DAILY 01/27/24 01/30/24 History (Lexapro) famotidine 40 mg tablet (Pepcid) 40 mg PO DAILY 01/27/24 01/30/24 History ferrous sulfate 324 mg (65 mg 324 mg PO BID 01/27/24 01/30/24 History iron) tablet,delayed release gabapentin 100 mg capsule 100 mg PO TID 01/27/24 01/30/24 History (Neurontin) hydrocodone 5 mg-acetaminophen 325 1 tablet PO BID 01/27/24 01/30/24 History mg tablet lactulose 10 gram/15 mL oral 20 ml PO Q8-10H 01/27/24 01/30/24 History solution (Enulose) lorazepam 0.5 mg tablet (Ativan) 0.5 mg PO BID 01/27/24 01/30/24 History magnesium oxide 400 mg (241.3 mg 400 mg PO BID 01/27/24 01/30/24 History magnesium) tablet (MagOx) melatonin 3 mg tablet 3 mg PO HS 01/27/24 01/30/24 History metoprolol succinate 25 mg 25 mg PO DAILY 01/27/24 01/30/24 History tablet,extended release 24 hr (Toprol XL) omeprazole 20 mg capsule,delayed 20 mg PO DAILY 01/27/24 01/30/24 History release oxybutynin chloride 5 mg tablet 2.5 mg PO BID 01/27/24 01/30/24 History polyethylene glycol 3350 17 17 g PO PRN PRN Constipation 01/27/24 01/30/24 History gram/dose oral powder (Miralax) sucralfate 1 gram tablet (Carafate) 1 g PO QID 01/27/24 01/30/24 History sumatriptan succinate 50 mg tablet 50 mg PO PRN PRN Headache 01/27/24 01/30/24 History (Imitrex) vit C 250 mg-vit E 90 mg-zinc 10 1 cap PO BID 01/27/24 01/30/24 History mg-copper 1 [id number] capsule (Healthy Eyes SuperVision2) amiodarone 200 mg tablet (Pacerone) 200 mg PO Q72H #1 tablet 01/30/24 01/30/24 Rx cyclobenzaprine 10 mg tablet 10 mg PO TID #1 tablet 01/30/24 01/30/24 Rx polyethylene glycol 3350 17 gram 17 g PO QAM #1 ea 01/30/24 01/30/24 Rx oral powder packet (Miralax) Allergies Allergy/AdvReac Type Severity Reaction Status Date / Time No Known Allergies Allergy Verified 01/27/24 06:19 Vital Signs Vital Signs - 24 hr 01/30/24 09:42 01/30/24 16:00 01/31/24 00:00 Temperature 97.1 F L 97.8 F Pulse Rate 71 99 Respiratory Rate 16 16 Blood Pressure 95/34 L 118/48 L Pulse Oximetry 97 97 Oxygen Delivery Room Air Room Air Room Air Exam Narrative: * GENERAL: Alert and oriented x 3. No acute distress. * EYES: EOMI. No scleral icterus. PERRLA. * HEENT: Moist mucous membranes. * LUNGS: Clear to auscultation bilaterally. No accessory muscle use. * CARDIOVASCULAR: Regular rate and rhythm. No murmur. No JVD. S1-S2 * ABDOMEN: Soft, non tenderness and non-distended. No palpable masses. * EXTREMITIES: Severe pain with movement LT hip and pelvis no internal or external rotation, unable to extend of lift LLE due to sever pain 1/5 mobility improving but slow progression * SKIN: No rashes or lesions. Skin warm, dry. * NEUROLOGIC: No focal neurological deficits. CN II-XII grossly intact * PSYCHIATRIC: Appropriate mood and affect. Good judgement and insight. Assessment and Plan Assessment and plan (1) Impaired ambulation: Code(s): R26.2 - Difficulty in walking, not elsewhere classified Status: Acute Assessment and Plan: * Patient unable to ambulate on own new onset with severe pain * XRAY with mild osteoarthritis and previous Rami fracture * Pain control * PT/OT/Swing bed * no loss of bowel or incontinence * CT scan showing left iliopsoas likely suspicious of muscle strain/Severe lumbar spondylosis and thoracolumbar levoscoliosis * Flexeril t.i.d. (2) Spondylosis of lumbar spine: Code(s): M47.816 - Spondylosis without myelopathy or radiculopathy, lumbar region Status: Acute Assessment and Plan: * Chronic * PT/OT * Pain control (3) Age-related physical debility: Code(s): R54 - Age-related physical debility Status: Acute Assessment and Plan: * SEE ABOVE (4) Arthritis of hip: Code(s): M16.10 - Unilateral primary osteoarthritis, unspecified hip Status: Acute Assessment and Plan: * LT hip pain unable to ambulate due to severe pain * XRAY with mild osteoarthritis * pain control * CT pelvis reviewed from medical admission (5) Migraine: Code(s): G43.909 - Migraine, unspecified, not intractable, without status migrainosus Status: Acute Assessment and Plan: * Resumed PRN sumatriptan (6) PUD (peptic ulcer disease): Code(s): K27.9 - Peptic ulcer, site unspecified, unspecified as acute or chronic, without hemorrhage or perforation Status: Acute Assessment and Plan: * Resumed PPI and Carafate (7) Chronic anemia: Code(s): D64.9 - Anemia, unspecified Status: Acute Assessment and Plan: * Hgb Stable * resumed home ferrous sulfate * stool softeners as needed * intermittent CBC is during admission to monitor Hgb * Monitor for any bleeding (8) Atrial fibrillation: Code(s): I48.91 - Unspecified atrial fibrillation Status: Acute Assessment and Plan: * HR rate controlled * resumed Amio and Eliquis Plan Code status: Full code per patient DVT prophylaxis: Eliquis Stress ulcer prophylaxis: Protonix 40 daily PT/OT notes: Swing bed Disposition: patient was admitted to [facility] bed for continued rehabilitation with impaired mobility and gait with severe pain. Plan is for patient to swing for continued rehabilitation patient and family would like patient to return to her assisted living at discharge. Quality VTE Prophylaxis VTE prophylaxis: pharmacologic ordered -Patient's previous records reviewed on admission -discussed all findings and current treatment plan with patient/Family/POA -Consultations reviewed for recommendations -Patient's disposition for safe discharge discussed with correctional case manager Dictation performed by [employer] direct speech recognition software, therefore paper machine operator variants and typographical errors may occur. Hospitalist [facility] Advance Care Plan I have confirmed that the patient's Advanced Care Plan is present, code status is documented, or surrogate decision maker is listed in patient medical record.: Yes Medication Reconciliation I have utilized all available resources to obtain, update and review the patients current medications (includes all prescriptions, OTC, herbals, cannabis, and nutritional supplements).: Yes The patient is not eligible for med reconciliation; the patient is in a emergent medical situation where delaying treatment would jeopardize the patients health.: No
[2024-01-31] MEDS: oxyCODONE/ACETAMINOPHEN (*CRX) 10-325 MG TABLET 1 TAB PO ×2 (08:10→21:27)
[2024-01-31] MEDS: LORazepam (*CRX) 0.5 MG TABLET PO ×2 (09:20→16:32)
[2024-01-31] MEDS: polyethylene glycoL 3350 17 GM POWD.PACK PO (09:31)
[2024-01-31] MEDS: ARIPiprazole 5 MG TABLET 15 MG PO (09:34)
[2024-01-31 09:35] VITALS: PULSE 78
[2024-01-31] MEDS: SUCRALFATE 1 GM TABLET PO ×4 (09:35→21:26)
[2024-01-31] MEDS: GABAPENTIN 100 MG CAPSULE PO ×3 (09:35→16:32)
[2024-01-31] MEDS: FAMOTIDINE 20 MG TABLET 40 MG PO (09:35)
[2024-01-31] MEDS: METOPROLOL SUCCINATE EXT REL 25 MG TABCR PO (09:35)
[2024-01-31] MEDS: MAGNESIUM OXIDE 400 MG TABLET PO ×2 (09:35→16:33)
[2024-01-31] MEDS: OPTI-GEN TAB 1 TABLET PO ×2 (09:35→16:32)
[2024-01-31] MEDS: ASPIRIN 81 MG ENTERIC TABLET PO (09:36)
[2024-01-31] MEDS: ESCITALOPRAM OXALATE 10 MG TABLET PO (09:36)
[2024-01-31] MEDS: PANTOPRAZOLE 40 MG TABLET PO (09:36)
[2024-01-31] MEDS: DULoxetine HCL 30 MG CAPSULE.DR 60 MG PO (09:36)
[2024-01-31] MEDS: DOCUSATE SODIUM 100 MG CAPSULE PO ×2 (09:36→16:33)
[2024-01-31] MEDS: APIXABAN 2.5 MG TABLET PO ×2 (09:37→16:32)
[2024-01-31] MEDS: CYCLOBENZAPRINE HCL 10 MG TABLET PO ×3 (09:37→16:33)
[2024-01-31] MEDS: FERROUS SULFATE 325 MG TABLET DR BY MOUTH ×2 (09:37→16:32)
[2024-01-31] MEDS: oxyBUTYnin CHLORIDE 2.5 MG TAB PO ×2 (09:37→16:36)
[2024-01-31 16:00] VITALS: BP 99/47; PULSE 90; RESP 20; TEMP 37.2; O2SAT 96
[2024-01-31] MEDS: SUMAtriptan SUCCINATE 25 MG TABLET 50 MG PO (17:34)
[2024-01-31] MEDS: MELATONIN 3 MG TABLET PO (21:26)
[2024-01-31] MEDS: LACTULOSE 20 GM/30 ML UDC 13.3333333 GM PO (21:26)
[2024-02-01] VITALS: BP 118/42; PULSE 84; RESP 16; TEMP 36.7; O2SAT 94
[2024-02-01 08:30] VITALS: BP 91/30; PULSE 80; RESP 18; TEMP 36.1; O2SAT 98
[2024-02-01 08:59] VITALS: PULSE 89
[2024-02-01] MEDS: SUCRALFATE 1 GM TABLET PO ×4 (08:59→20:34)
[2024-02-01] MEDS: ARIPiprazole 5 MG TABLET 15 MG PO (08:59)
[2024-02-01] MEDS: FAMOTIDINE 20 MG TABLET 40 MG PO (08:59)
[2024-02-01] MEDS: DOCUSATE SODIUM 100 MG CAPSULE PO ×2 (08:59→17:46)
[2024-02-01] MEDS: DULoxetine HCL 30 MG CAPSULE.DR 60 MG PO (08:59)
[2024-02-01] MEDS: METOPROLOL SUCCINATE EXT REL 25 MG TABCR PO (08:59)
[2024-02-01 09:00] VITALS: BP 98/48
[2024-02-01] MEDS: CYCLOBENZAPRINE HCL 10 MG TABLET PO ×3 (09:00→17:46)
[2024-02-01] MEDS: oxyBUTYnin CHLORIDE 2.5 MG TAB PO ×2 (09:00→17:46)
[2024-02-01] MEDS: FERROUS SULFATE 325 MG TABLET DR BY MOUTH ×2 (09:00→17:47)
[2024-02-01] MEDS: GABAPENTIN 100 MG CAPSULE PO ×3 (09:00→17:46)
[2024-02-01] MEDS: PANTOPRAZOLE 40 MG TABLET PO (09:00)
[2024-02-01] MEDS: ESCITALOPRAM OXALATE 10 MG TABLET PO (09:00)
[2024-02-01] MEDS: APIXABAN 2.5 MG TABLET PO ×2 (09:00→17:46)
[2024-02-01] MEDS: LORazepam (*CRX) 0.5 MG TABLET PO ×2 (09:00→17:46)
[2024-02-01] MEDS: ASPIRIN 81 MG ENTERIC TABLET PO (09:00)
[2024-02-01] MEDS: MAGNESIUM OXIDE 400 MG TABLET PO ×2 (09:00→17:46)
[2024-02-01] MEDS: OPTI-GEN TAB 1 TABLET PO ×2 (09:00→17:46)
[2024-02-01] MEDS: oxyCODONE/ACETAMINOPHEN (*CRX) 10-325 MG TABLET 1 TAB PO ×2 (13:42→19:39)
[2024-02-01 16:00] VITALS: BP 108/51; PULSE 82; RESP 17; TEMP 36.6; O2SAT 98
[2024-02-01] MEDS: MELATONIN 3 MG TABLET PO (20:34)
[2024-02-02] VITALS: BP 109/49; PULSE 75; RESP 15; TEMP 36.8; O2SAT 93
[2024-02-02 08:00] VITALS: BP 94/52; PULSE 91; RESP 17; TEMP 36.4; O2SAT 96
[2024-02-02] MEDS: APIXABAN 2.5 MG TABLET PO ×2 (08:49→17:33)
[2024-02-02] MEDS: ESCITALOPRAM OXALATE 10 MG TABLET PO (08:49)
[2024-02-02] MEDS: oxyBUTYnin CHLORIDE 2.5 MG TAB PO ×2 (08:49→17:33)
[2024-02-02] MEDS: FERROUS SULFATE 325 MG TABLET DR BY MOUTH ×2 (08:49→17:33)
[2024-02-02] MEDS: FAMOTIDINE 20 MG TABLET 40 MG PO (08:49)
[2024-02-02] MEDS: ASPIRIN 81 MG ENTERIC TABLET PO (08:49)
[2024-02-02] MEDS: ARIPiprazole 5 MG TABLET 15 MG PO (08:49)
[2024-02-02] MEDS: PANTOPRAZOLE 40 MG TABLET PO (08:49)
[2024-02-02] MEDS: DOCUSATE SODIUM 100 MG CAPSULE PO ×2 (08:49→17:33)
[2024-02-02] MEDS: GABAPENTIN 100 MG CAPSULE PO ×3 (08:49→17:33)
[2024-02-02] MEDS: DULoxetine HCL 30 MG CAPSULE.DR 60 MG PO (08:49)
[2024-02-02] MEDS: CYCLOBENZAPRINE HCL 10 MG TABLET PO ×3 (08:49→17:33)
[2024-02-02] MEDS: OPTI-GEN TAB 1 TABLET PO ×2 (08:49→17:33)
[2024-02-02] MEDS: LORazepam (*CRX) 0.5 MG TABLET PO ×2 (08:49→17:33)
[2024-02-02] MEDS: SUCRALFATE 1 GM TABLET PO ×4 (08:49→20:23)
[2024-02-02] MEDS: MAGNESIUM OXIDE 400 MG TABLET PO ×2 (08:49→17:33)
[2024-02-02 08:50] VITALS: PULSE 84
[2024-02-02] MEDS: METOPROLOL SUCCINATE EXT REL 25 MG TABCR PO (08:50)
[2024-02-02] MEDS: AMIODARONE HCL 200 MG TABLET PO (08:50)
[2024-02-02] MEDS: oxyCODONE/ACETAMINOPHEN (*CRX) 10-325 MG TABLET 1 TAB PO ×2 (10:04→17:33)
[2024-02-02 16:00] VITALS: BP 111/59; PULSE 84; RESP 16; TEMP 36.3; O2SAT 96
[2024-02-02 20:00] VITALS: PULSE 84; RESP 16; O2SAT 96
[2024-02-02] MEDS: MELATONIN 3 MG TABLET PO (20:23)
[2024-02-02] MEDS: LACTULOSE 20 GM/30 ML UDC 13.3333333 GM PO (20:24)
[2024-02-02] MEDS: ACETAMINOPHEN 325 MG TABLET 650 MG PO (20:24)
[2024-02-03] VITALS: BP 126/60; PULSE 85; RESP 17; TEMP 36.6; O2SAT 95
[2024-02-03] MEDS: oxyCODONE/ACETAMINOPHEN (*CRX) 10-325 MG TABLET 1 TAB PO (02:31)
--- NOTE | 2024-02-03 02:35 | PC.NURSE ---
Patient called to nurse station to ask if she could get up by herself, instructed she still needs to wait for staff. Patient states she has been up independently in room. After ambulating patient to and from bathroom, bed alarm applied to ensure safety. PRN pain med given for left leg pain. Denies further needs.
--- NOTE | 2024-02-03 05:05 | PC.NURSE ---
Patient stating she is confused, A&Ox1 at this time, believes she is in a half-way, and does not know day or month. Reoriented patient multiple times with no success. Patient denies needing bathroom, requests to sit in chair. When attempting to stand, she grabbed her walker, but self-corrected to push up from bed 1st. Elevators Inspector gave SBA for ambulation to recliner, with walker. Confusion may be d/t high dose of narcotic pain med, Percocet 10/325mg Q 4h PRN, if no other physical cause if found. Will discuss with ABATTOIR SUPERVISOR.
--- NOTE | 2024-02-03 06:30 | PC.NURSE ---
A&Ox3 at this time, does remember being confused.
[2024-02-03 08:00] VITALS: BP 101/57; PULSE 65; RESP 16; TEMP 36; O2SAT 94; O2SAT 95
[2024-02-03] MEDS: LORazepam (*CRX) 0.5 MG TABLET PO ×2 (08:23→16:39)
[2024-02-03] MEDS: FAMOTIDINE 20 MG TABLET 40 MG PO (08:23)
[2024-02-03] MEDS: ACETAMINOPHEN 325 MG TABLET 650 MG PO ×2 (08:24→20:11)
[2024-02-03] MEDS: ARIPiprazole 5 MG TABLET 15 MG PO (08:25)
[2024-02-03] MEDS: DULoxetine HCL 30 MG CAPSULE.DR 60 MG PO (08:26)
[2024-02-03] MEDS: MAGNESIUM OXIDE 400 MG TABLET PO ×2 (08:26→17:29)
[2024-02-03] MEDS: CYCLOBENZAPRINE HCL 10 MG TABLET PO ×3 (08:27→16:38)
[2024-02-03] MEDS: SUCRALFATE 1 GM TABLET PO ×4 (08:27→20:11)
[2024-02-03] MEDS: GABAPENTIN 100 MG CAPSULE PO ×3 (08:27→16:39)
[2024-02-03] MEDS: ASPIRIN 81 MG ENTERIC TABLET PO (08:27)
[2024-02-03] MEDS: oxyBUTYnin CHLORIDE 2.5 MG TAB PO ×2 (08:27→17:29)
[2024-02-03 08:28] VITALS: PULSE 65
[2024-02-03] MEDS: ESCITALOPRAM OXALATE 10 MG TABLET PO (08:28)
[2024-02-03] MEDS: METOPROLOL SUCCINATE EXT REL 25 MG TABCR PO (08:28)
[2024-02-03] MEDS: DOCUSATE SODIUM 100 MG CAPSULE PO ×2 (08:28→16:38)
[2024-02-03] MEDS: APIXABAN 2.5 MG TABLET PO ×2 (08:29→16:40)
[2024-02-03] MEDS: FERROUS SULFATE 325 MG TABLET DR BY MOUTH ×2 (08:29→16:39)
[2024-02-03] MEDS: polyethylene glycoL 3350 17 GM POWD.PACK PO (08:29)
[2024-02-03] MEDS: OPTI-GEN TAB 1 TABLET PO ×2 (08:29→17:29)
[2024-02-03] MEDS: PANTOPRAZOLE 40 MG TABLET PO (08:30)
[2024-02-03 14:24] LABS: Basophils Absolute Auto 0.03 K/mm3 (0.00-0.10); Basophils Percent Auto 0.3 % (0.0-1.0); Eosinophils Absolute Auto 0.18 K/mm3 (0.02-0.50); Hematocrit 31.3 % (35.0-42.0); Hemoglobin 10.1 g/dL (11.7-13.8); Immature Granulocyte Absolute 0.03 K/mm3 (0.00-0.00); Immature Granulocyte Percent A 0.3 % (0.0-0.0); Lymphocytes Absolute Auto 1.01 K/mm3 (1.10-4.50); Lymphocytes Percent Auto 11.4 % (18.0-42.0); Mean Corpuscular HGB Conc 32.3 g/dL (32-36); Mean Corpuscular Hemoglobin 29.5 pg (27.0-31.0); Mean Corpuscular Volume 91.5 fL (78.0-102.0); Mean Platelet Volume 10.6 fl (9.2-11.8); Monocytes Absolute Auto 0.77 K/mm3 (0.10-0.90); Monocytes Percent Auto 8.7 % (2.0-11.0); Neutrophils Absolute Auto 6.83 K/mm3 (1.70-7.20); Neutrophils Percent Auto 77.3 % (50.0-70.0); Platelet Count Result 277 K/mm3 (150-420); Red Blood Count 3.42 M/mm3 (4.20-5.40); Red Cell Distribution Width 12.7 % (11.6-14.4); White Blood Count 8.9 K/mm3 (4.8-10.8)
[2024-02-03 14:41] LABS: Alanine Aminotransferase 11 U/L (14-59); Albumin Level 2.9 g/dL (3.4-5.0); Alkaline Phosphatase 92 U/L (46-116); Anion Gap 8 mmol/L (4-12); Aspartate Amino Transferase 11 U/L (15-37); Bilirubin,Total 0.8 mg/dL (0.00-1.00); Blood Urea Nitrogen 31 mg/dL (7-18); Calcium 8.5 mg/dL (8.5-10.1); Carbon Dioxide 28 mmol/L (21-32); Chloride 99 mmol/L (98-108); Estimated CRCL calculation 27 ml/min; Estimated Glomerular Filt Rate 38; Glucose 93 mg/dL (70-99); Osmolality Calculated 286 mOsm/kg (285-295); Potassium 4.2 mmol/L (3.5-5.1); Sodium 135 mmol/L (136-145); Total Protein 6.2 g/dL (6.4-8.2)
[2024-02-03 16:00] VITALS: BP 128/60; PULSE 88; RESP 16; TEMP 36.4; O2SAT 94
--- NOTE | 2024-02-03 16:22 | PM.EVENT ---
Event Note Event Note Event Note: Family is concerned that patient appears more confused than normal. No neural focal deficit reported. She has concerns that maybe the patient's home medications have not been resumed. Medication reconciliation has been completed. There are no home medications that we are currently holding other than her [employer] as she is receiving Percocet instead. There were concerns of possible urinary tract infection. UA was requested. Will get a CBC and BMP.
[2024-02-03 17:54] LABS: Add Urine Microscopic? YES; Appearance Urine Clear (Clear); Bilirubin Urine Negative (Negative); Blood Urine Trace-intact (Negative); Color Urine Light Yellow (Yellow); Glucose Urine UA Negative (Negative); Ketones Urine Negative (Negative); Leukocyte Esterase Ur 1+ LEU/UL (Negative); Nitrate Urine Negative (Negative); Protein Urine Negative (Negative); Urobilinogen Urine 0.2 mg/dL (0.2-1.0); pH Urine 5.5 (5.0-8.0)
[2024-02-03 18:00] LABS: Bacteria Urine Trace /hpf; Squamous Epithelial Cell Urine Occasional /hpf (Few)
[2024-02-03 20:00] VITALS: PULSE 88; RESP 16; O2SAT 94
[2024-02-03] MEDS: MELATONIN 3 MG TABLET PO (20:11)
[2024-02-03] MEDS: LACTULOSE 20 GM/30 ML UDC 13.3333333 GM PO (20:11)
[2024-02-04] VITALS: BP 122/55; PULSE 91; RESP 17; TEMP 36.8; O2SAT 100
--- NOTE | 2024-02-04 00:30 | PC.NURSE ---
Patient called, states, I need to get dressed to go out with my sister and cousins , patient reoriented to place and time. Patient laughs and states, I'm so confused . Patient able to stand independently without verbal cues using walker, and ambulated to bathroom with SBA and walker, independent with clothing, toilet and hand hygiene. No further confusion noted.
[2024-02-04] MEDS: ACETAMINOPHEN 325 MG TABLET 650 MG PO ×2 (04:04→12:25)
--- NOTE | 2024-02-04 04:30 | PC.NURSE ---
Patient has been up to toilet so far this shift 10 times, does not urinate each time. Excessive toileting could be a manipulative behavior, UA previously obtained was slightly abnormal but not indicative of UTI.
--- NOTE | 2024-02-04 04:50 | PC.NURSE ---
Patient has been to toilet 2 more times, states she is having watery stools each time she used the toilet tonight. Nitroglycerin Nitrator Operator Batch has taken patient 11 of the 12 toileting episodes, patient does not flush toilet after use, television writer has noted only 2 soft formed BMs, dark in color d/t iron use. Patient argumentative with television writer, angry and agitated when television writer explained only 2 BMs were seen.
--- NOTE | 2024-02-04 06:26 | PC.NURSE ---
Patient toileted for the 13th time tonight, continent of soft dark brown stool, states she is going much more than usual and thinks she may need to not take a routine laxative. Patient currently receiving Colace BID routinely, Miralax daily, and Lactulose at , will discuss current medication regimen with GEOLOGY PROFESSOR and see if a change is warranted.
[2024-02-04 08:00] VITALS: BP 134/63; PULSE 92; RESP 16; TEMP 36.2; O2SAT 95
[2024-02-04 08:19] VITALS: PULSE 92
[2024-02-04] MEDS: LORazepam (*CRX) 0.5 MG TABLET PO ×2 (08:19→16:33)
[2024-02-04] MEDS: METOPROLOL SUCCINATE EXT REL 25 MG TABCR PO (08:19)
[2024-02-04] MEDS: ARIPiprazole 5 MG TABLET 15 MG PO (08:20)
[2024-02-04] MEDS: FAMOTIDINE 20 MG TABLET 40 MG PO (08:21)
[2024-02-04] MEDS: oxyBUTYnin CHLORIDE 2.5 MG TAB PO ×2 (08:21→16:32)
[2024-02-04] MEDS: DOCUSATE SODIUM 100 MG CAPSULE PO ×2 (08:21→16:34)
[2024-02-04] MEDS: MAGNESIUM OXIDE 400 MG TABLET PO ×2 (08:21→16:33)
[2024-02-04] MEDS: GABAPENTIN 100 MG CAPSULE PO ×3 (08:22→16:34)
[2024-02-04] MEDS: DULoxetine HCL 30 MG CAPSULE.DR 60 MG PO (08:22)
[2024-02-04] MEDS: CYCLOBENZAPRINE HCL 10 MG TABLET PO ×3 (08:22→16:32)
[2024-02-04] MEDS: OPTI-GEN TAB 1 TABLET PO ×2 (08:23→16:32)
[2024-02-04] MEDS: ESCITALOPRAM OXALATE 10 MG TABLET PO (08:23)
[2024-02-04] MEDS: FERROUS SULFATE 325 MG TABLET DR BY MOUTH ×2 (08:23→16:33)
[2024-02-04] MEDS: PANTOPRAZOLE 40 MG TABLET PO (08:24)
[2024-02-04] MEDS: SUCRALFATE 1 GM TABLET PO ×3 (08:24→16:34)
[2024-02-04] MEDS: ASPIRIN 81 MG ENTERIC TABLET PO (08:24)
[2024-02-04] MEDS: APIXABAN 2.5 MG TABLET PO ×2 (08:27→16:32)
--- NOTE | 2024-02-04 08:34 | P.PNIM_ITS ---
Progress Note: A&P Assessment and Plan (1) Impaired ambulation: Code(s): R26.2 - Difficulty in walking, not elsewhere classified Status: Acute Assessment and Plan: * Patient unable to ambulate on own new onset with severe pain * XRAY with mild osteoarthritis and previous Rami fracture * Pain control * PT/OT/Swing bed * no loss of bowel or incontinence * CT scan showing left iliopsoas likely suspicious of muscle strain/Severe lumbar spondylosis and thoracolumbar levoscoliosis * Flexeril t.i.d. (2) Spondylosis of lumbar spine: Code(s): M47.816 - Spondylosis without myelopathy or radiculopathy, lumbar region Status: Acute Assessment and Plan: * Chronic * PT/OT * Pain control (3) Age-related physical debility: Code(s): R54 - Age-related physical debility Status: Acute Assessment and Plan: * SEE ABOVE (4) Arthritis of hip: Code(s): M16.10 - Unilateral primary osteoarthritis, unspecified hip Status: Acute Assessment and Plan: * LT hip pain unable to ambulate due to severe pain * XRAY with mild osteoarthritis * pain control * CT pelvis reviewed from medical admission (5) Migraine: Code(s): G43.909 - Migraine, unspecified, not intractable, without status migrainosus Status: Acute Assessment and Plan: * Resumed PRN sumatriptan (6) PUD (peptic ulcer disease): Code(s): K27.9 - Peptic ulcer, site unspecified, unspecified as acute or chronic, without hemorrhage or perforation Status: Acute Assessment and Plan: * Resumed PPI and Carafate (7) Chronic anemia: Code(s): D64.9 - Anemia, unspecified Status: Acute Assessment and Plan: * Hgb Stable * resumed home ferrous sulfate * stool softeners as needed * intermittent CBC is during admission to monitor Hgb * Monitor for any bleeding L (8) Atrial fibrillation: Code(s): I48.91 - Unspecified atrial fibrillation Status: Acute Assessment and Plan: * HR rate controlled * resumed Amio and Eliquis (9) UTI (urinary tract infection): Code(s): N39.0 - Urinary tract infection, site not specified Status: Acute Assessment and Plan: Family had concerns that patient seemed more confused. Urinalysis obtained showing 1+ leuk, pyuria, negative nitrate. CBC E with normal white count at 8.9. creatinine is slightly elevated 1.34. * urine culture pending * started on cefdinir * encourage p.o. fluids * repeat BMP tomorrow Plan Code status: Full code per patient DVT prophylaxis: Eliquis Stress ulcer prophylaxis: Protonix 40 daily PT/OT notes: Swing bed Disposition: patient was admitted to [facility] bed for continued rehabilitation with impaired mobility and gait with severe pain. Plan is for patient to swing for continued rehabilitation patient and family would like patient to return to her assisted living at discharge. Subjective Date/time seen: 02/04/24 08:34 Interval history: Mrs. Reeves's doing well today. She is sitting in the chair and appears comfortable. She states she had a couple episode yesterday where she got a little confused. Labs were obtained. CBC showed a normal white count. BMP showed a slight bump in her creatinine of 1.34. She reports she has been having some diarrhea. She normally receives lactulose at night as well as Colace b.i.d.. We will put this on hold for now. I have asked her to increase her oral intake today. She also reports a dry cough. Review of Systems Review of Systems: All systems reviewed & are unremarkable except as noted in HPI and below Exam Narrative: General: appears comfortable, in no acute distress Respiratory: breathing is unlabored with even chest rise/fall, lungs are clear without wheezing, rhonchi, and crackles Cardiovascular: Rate and rhythm regular, normal s1s2, no murmur Abdomen: Soft, round, non-tender, active bowel sounds Extremities: No cyanosis, edema, clubbing. Pulses 2/2 Neuro: A&O x 4 Skin: Warm, dry, intact Objective Data Vital Signs Vital Signs: Vital Signs - 24 hr 02/03/24 16:00 02/03/24 20:00 02/04/24 00:00 Temperature 97.6 F 98.3 F Pulse Rate 88 88 91 Respiratory Rate 16 16 17 Blood Pressure 128/60 122/55 L Pulse Oximetry 94 94 100 Oxygen Delivery Room Air Room Air Room Air 02/04/24 08:00 02/04/24 08:00 02/04/24 08:19 Temperature 97.2 F L Pulse Rate 92 92 92 Respiratory Rate 16 16 Blood Pressure 134/63 Pulse Oximetry 95 95 Oxygen Delivery Room Air Room Air Intake/Output Intake/Output: Intake & Output 02/01/24 02/02/24 02/03/24 02/04/24 23:59 23:59 23:59 23:59 Intake Total 1440 1300 1490 360 Balance 1440 1300 1490 360 Meds/Results Medications: Active Medications Generic Name Dose Route Start Last Admin Trade Name Freq PRN Reason Stop Dose Admin Acetaminophen 650 mg 01/30/24 09:41 02/04/24 04:04 Acetaminophen 325 Mg Tablet PO 650 mg Q6H PRN Administration Mild Pain (1-3) or Fever Amiodarone HCl 200 mg 02/02/24 09:00 02/02/24 08:50 Amiodarone Hcl 200 Mg Tablet PO 200 mg Q72H LOKI Administration Apixaban 2.5 mg 01/30/24 17:00 02/04/24 08:27 Apixaban 2.5 Mg Tablet PO 2.5 mg BID LOKI Administration Aripiprazole 15 mg 01/31/24 09:00 02/04/24 08:20 Aripiprazole 5 Mg Tablet PO 03/01/24 08:59 15 mg DAILY LOKI Administration Aspirin 81 mg 01/31/24 09:00 02/04/24 08:24 Aspirin 81 Mg Enteric Tablet PO 81 mg DAILY LOKI Administration Cefdinir 300 mg 02/04/24 09:00 Cefdinir 300 Mg Capsule PO Q12HR [facility] Cyclobenzaprine HCl 10 mg 01/30/24 13:00 02/04/24 08:22 Cyclobenzaprine Hcl 10 Mg Tablet PO 10 mg TID LOKI Administration Docusate Sodium 100 mg 01/30/24 17:00 02/04/24 08:21 Docusate Sodium 100 Mg Capsule PO 100 mg BID LOKI Administration Duloxetine HCl 60 mg 01/31/24 09:00 02/04/24 08:22 Duloxetine Hcl 30 Mg Capsule.Dr PO 60 mg QAM LOKI Administration Escitalopram Oxalate 10 mg 01/31/24 09:00 02/04/24 08:23 Escitalopram Oxalate 10 Mg Tablet PO 10 mg DAILY LOKI Administration Famotidine 40 mg 01/31/24 09:00 02/04/24 08:21 Famotidine 20 Mg Tablet PO 40 mg DAILY LOKI Administration Ferrous Sulfate 325 mg 01/30/24 17:00 02/04/24 08:23 Ferrous Sulfate [address] BY MOUTH 325 mg BID LOKI Administration Gabapentin 100 mg 01/30/24 13:00 02/04/24 08:22 Gabapentin 100 Mg Capsule PO 100 mg TID [facility] Administration Lactulose 13.8264057 gm 01/30/24 21:00 02/03/24 20:11 Lactulose 20 Gm/30 Ml Udc PO 13.1237074 gm HS [facility] Administration Lorazepam 0.5 mg 01/30/24 17:00 02/04/24 08:19 Lorazepam (*Crx) 0.5 Mg Tablet PO 0.5 mg BID [facility] Administration Magnesium Oxide 400 mg 01/30/24 17:00 02/04/24 08:21 Magnesium Oxide 400 Mg Tablet PO 400 mg BID [facility] Administration Melatonin 3 mg 01/30/24 21:00 02/03/24 20:11 Melatonin 3 Mg Tablet PO 3 mg HS [facility] Administration Metoprolol Succinate 25 mg 01/31/24 09:00 02/04/24 08:19 Metoprolol Succinate Ext Rel 25 Mg Tabcr PO 25 mg DAILY [facility] Administration Multivitamins/Minerals 1 tablet 01/30/24 17:00 02/04/24 08:23 Opti-Gen Tab PO 1 tablet BID [facility] Administration Ondansetron HCl 4 mg 01/30/24 09:41 Ondansetron Hcl Odt 4 Mg Tablet PO Q6H PRN Nausea And Vomiting Oxybutynin Chloride 2.5 mg 01/30/24 17:00 02/04/24 08:21 Oxybutynin Chloride 2.5 Mg Tab PO 2.5 mg BID [facility] Administration Oxycodone/Acetaminophen 1 tab 01/30/24 12:45 02/03/24 02:31 Oxycodone/Acetaminophen (*Crx) 10-325 Mg Tablet PO 1 tab Q4H PRN Administration Pain Rated 7-10 Oxycodone/Acetaminophen 1 tablet 01/30/24 12:45 Oxycodone/Acetaminophen (*Crx) 5-325 Mg Tablet PO Q4H PRN Pain Rated 4-6 Pantoprazole Sodium 40 mg 01/31/24 09:00 02/04/24 08:24 Pantoprazole 40 Mg Tablet PO 40 mg QAM LOKI Administration Polyethylene Glycol 17 gm 01/31/24 09:00 02/04/24 08:25 Polyethylene Glycol 3350 17 Gm Powd.Pack PO Not Given QAM LOKI Sucralfate 1 gm 01/30/24 13:00 02/04/24 08:24 Sucralfate 1 Gm Tablet PO 1 gm QID LOKI Administration Sumatriptan Succinate 50 mg 01/30/24 12:42 01/31/24 17:34 Sumatriptan Succinate 25 Mg Tablet PO 50 mg PRN PRN Administration Headache Labs Labs: Laboratory Results - last 24 hr 02/03/24 02/03/24 14:00 14:16 WBC 8.9 RBC 3.42 L Hgb 10.1 L Hct 31.3 L MCV 91.5 MCH 29.5 MCHC 32.3 RDW 12.7 Plt Count 277 MPV 10.6 Immature Gran % (Auto) 0.3 H Neut % (Auto) 77.3 H Lymph % (Auto) 11.4 L [place] % (Auto) 8.7 Eos % (Auto) 2.0 Baso % (Auto) 0.3 Lymph # (Auto) 1.01 L [place] # (Auto) 0.77 Eos # (Auto) 0.18 Baso # (Auto) 0.03 Abs Immat Gran (auto) 0.03 H Absolute Neuts (auto) 6.83 Absolute Nucleated RBC 0.00 Nucleated RBC % 0.0 Sodium 135 L Potassium 4.2 Chloride 99 Carbon Dioxide 28 Anion Gap 8 BUN 31 H Creatinine 1.34 H Estim Creat Clear Calc 27 Estimated GFR 38 L Glucose 93 Calculated Osmolality 286 Calcium 8.5 Total Bilirubin 0.8 AST 11 L ALT 11 L Alkaline Phosphatase 92 Total Protein 6.2 L Albumin 2.9 L Urine Color Light yellow Urine Appearance Clear Urine pH 5.5 Ur Specific [place] 1.010 Urine Protein Negative Urine Glucose (UA) Negative Urine Ketones Negative Ur Blood (Man) Trace-intact H Urine Nitrate Negative Urine Bilirubin Negative Urine Urobilinogen 0.2 Leukocyte Esterase Rfl 1+ H Urine RBC 3-5 H Urine WBC 4-6 H Ur Squamous Epith Cells Occasional Urine Bacteria Trace Quality VTE Prophylaxis VTE prophylaxis: pharmacologic ordered
[2024-02-04] MEDS: CEFDINIR 300 MG CAPSULE PO (09:31)
[2024-02-04 16:00] VITALS: BP 108/44; PULSE 76; RESP 16; TEMP 36.3; O2SAT 97
[2024-02-04 18:47] VITALS: BP 117/58; PULSE 83; RESP 16; TEMP 36.2; O2SAT 96
--- NOTE | 2024-02-04 18:59 | PC.NURSE ---
At 1805 this nurse stood up to go collect patient's dinner tray and nurses heard a bang and then yelling coming from this patient's room. When nurses arrived to the room, we observed patient on the floor, at the foot of the bed, on her back with her neck extended and her head up. Patient was yelling for help. Nurse asked patient what happened and patient stated that she was looking for her walker. Nurses assessed patient for injuries and were able to get patient to her feet and patient ambulated with assistance to bed. Nurse noted that patient's walker was right next to her at the end of the bed. RESEARCH TECHNOLOGIST notified of fall and orders obtained for radiology to further assess for injury. Patient's daughter was notified at 1830 of the fall. Patient's belongings were moved to room 206 for safety while patient was in x ray. A chair alarm was also added to patient's chair for extra safety. Patient knew that she was not to ambulate on her own and asked dietary staff to give her her walker while dietary staff was serving her tray. Dietary staff asked patient if she was allowed to get up on her own, and patient stated that she was allowed with her nurse. Neuro checks initiated along with q 4hr VS.
--- NOTE | 2024-02-04 19:11 | PC.NURSE ---
Initial neuro assessment revealed that patient was alert to person, place, time and situation.
[2024-02-04 20:00] VITALS: BP 138/67; PULSE 95; RESP 16; TEMP 36.6; O2SAT 98
--- NOTE | 2024-02-04 20:36 | P.PNCROSS_ITS ---
Event Note Event Note Event Note: Nursing contacted me at 1803 to report patient had suffered an unwitnessed fall. Patient denies loss of consciousness. She was able to ambulate back to her bed with staff assistance without complaints of pain to her legs or hips. She did complain of pain to her right arm. Stat CT head and cervical spine ordered as well as right shoulder, elbow, and wrist x-ray. Q4 neurological checks and vitals ordered as well as fall precautions. Patient was A&O x 4 per nursing notes. 2000: Imaging shows no acute intracranial process with head CT. X-ray of right shoulder shows possible humeral head elevation which may represent rotator cuff tear. X-ray of right elbow shows proximal fracture of right radius. CT cervical spine shows possible longitudinal fracture of the posterior aspect of the second vertebrae. Patient was placed in a cervical spine collar and right arm sling. Neurovascular checks every four hours ordered. Case was discussed with Dr Pope regarding the possibility of right proximal radial fracture and right rotator cuff tear. No surgical intervention needed at this time. Recommended sling or long arm splint if pain is severe. He suspects the rotator cuff tear is chronic based on her age and would be non-operative initially. Plan for orthopedic follow up as an outpatient. CT of right elbow is pending. Case was discussed with Dr Yen, neurosurgery regarding possible C2 fracture. No emergent surgical intervention is warranted but would recommend transferring to [facility] for MRI imaging and formal inpatient consultation. She would agree with holding Eliquis. Cervical spine CT was concerning for upper lobe pneumonia. Chest x-ray ordered. Patient had complained of a dry cough today. CBC added for am labs. She is afebrile and vitals are within desired range. Nursing supervisor wood room at [facility] is aware of bed request. Awaiting confirmation of acceptance from admitting provider. Anticipate she will transfer in the next 24 hours.
--- NOTE | 2024-02-04 22:19 | PM.DS ---
DS: Admitting Diagnosis Discharge Date 02/03 DS: Summary Time Spent with Patient Time attestation: Total time spent providing and/or coordinating discharge services: Discharge Plan Discharge Consulting providers: Nu Minor Discharge Medications: No Action acetaminophen [Tylenol] 325 mg tablet 325 mg PO DAILY famotidine [Pepcid] 40 mg tablet 40 mg PO DAILY melatonin 3 mg tablet 3 mg PO HS aspirin [Adult Low Dose Aspirin] 81 mg tablet,delayed release (DR/EC) 81 mg PO DAILY magnesium oxide [MagOx] 400 mg (241.3 mg magnesium) tablet 400 mg PO BID lorazepam [Ativan] 0.5 mg tablet 0.5 mg PO BID omeprazole 20 mg capsule,delayed release(DR/EC) 20 mg PO DAILY metoprolol succinate [Toprol XL] 25 mg tablet extended release 24 hr 25 mg PO DAILY oxybutynin chloride 5 mg tablet 2.5 mg PO BID docusate sodium [Stool Softener] 100 mg tablet 100 mg PO BID escitalopram oxalate [Lexapro] 10 mg tablet 10 mg PO DAILY aripiprazole [Abilify] 15 mg tablet 15 mg PO DAILY duloxetine [Cymbalta] 60 mg capsule,delayed release(DR/EC) 60 mg PO DAILY calcium carbonate-vitamin D3 [Calcium 600 + D(3)] 600 mg-10 mcg (400 unit) tablet 1 tablet PO DAILY ferrous sulfate 324 mg (65 mg iron) tablet,delayed release (DR/EC) 324 mg PO BID Eliquis 2.5 mg tablet 2.5 mg PO BID hydrocodone-acetaminophen 5-325 mg tablet 1 tablet PO BID sucralfate [Carafate] 1 gram tablet 1 g PO QID sumatriptan succinate [Imitrex] 50 mg tablet 50 mg PO PRN PRN (Reason: Headache) Rx Instructions: take one tablet by mouth every day as needed for headache. max of 200 mg. gabapentin [Neurontin] 100 mg capsule 100 mg PO TID polyethylene glycol 3350 [Miralax] 17 gram/dose powder 17 g PO PRN PRN (Reason: Constipation) Rx Instructions: Mix 17 gm (one cap full) in 8 oz of liquid and drink daily as needed for constipation. lactulose [Enulose] 10 gram/15 mL solution 20 ml PO Q8-10H diclofenac sodium [Voltaren Arthritis Pain] 1 % gel See Rx Instructions .ROUTE .COMPLEX Rx Instructions: use as directed. Healthy Eyes SuperVision2 250-90-10-1 mg capsule 1 cap PO BID cyclobenzaprine 10 mg Tablet 10 mg PO TID Qty: 1 0RF polyethylene glycol 3350 [Miralax] 17 gram Powder In Packet 17 g PO QAM Qty: 1 0RF amiodarone [Pacerone] 200 mg tablet 200 mg PO Q72H Qty: 1 0RF Rx Instructions: every three days for atrial fibrillation. Date of admission: 01/30/24 09:01 Primary Care Provider: Varghese,Jarret Admitting Provider: Kvng Longoria Attending physician on admission: Helena Wynne
--- NOTE | 2024-02-04 22:20 | P.TS_ITS ---
Transfer Discharge Sum: Prov Provider Date of admission: 01/30/24 09:01 Primary care physician: Jarret Kwong, Admitting clinician: Bernard Longoria MD DS: Admitting Diagnosis Discharge Date 02/03 Admitting Diagnosis weakness DS: Discharge Diagnosis Discharge Diagnosis (1) Impaired ambulation: Code(s): R26.2 - Difficulty in walking, not elsewhere classified Status: Acute Assessment and Plan: * Patient unable to ambulate on own new onset with severe pain * XRAY with mild osteoarthritis and previous Rami fracture * Pain control * PT/OT/Swing bed * no loss of bowel or incontinence * CT scan showing left iliopsoas likely suspicious of muscle strain/Severe lumbar spondylosis and thoracolumbar levoscoliosis * Flexeril t.i.d. (2) Spondylosis of lumbar spine: Code(s): M47.816 - Spondylosis without myelopathy or radiculopathy, lumbar region Status: Acute Assessment and Plan: * Chronic * PT/OT * Pain control (3) Age-related physical debility: Code(s): R54 - Age-related physical debility Status: Acute Assessment and Plan: * SEE ABOVE (4) Arthritis of hip: Code(s): M16.10 - Unilateral primary osteoarthritis, unspecified hip Status: Acute Assessment and Plan: * LT hip pain unable to ambulate due to severe pain * XRAY with mild osteoarthritis * pain control * CT pelvis reviewed from medical admission (5) Migraine: Code(s): G43.909 - Migraine, unspecified, not intractable, without status migrainosus Status: Acute Assessment and Plan: * Resumed PRN sumatriptan (6) PUD (peptic ulcer disease): Code(s): K27.9 - Peptic ulcer, site unspecified, unspecified as acute or chronic, without hemorrhage or perforation Status: Acute Assessment and Plan: * Resumed PPI and Carafate (7) Chronic anemia: Code(s): D64.9 - Anemia, unspecified Status: Acute Assessment and Plan: * Hgb Stable * resumed home ferrous sulfate * stool softeners as needed * intermittent CBC is during admission to monitor Hgb * Monitor for any bleeding (8) Atrial fibrillation: Code(s): I48.91 - Unspecified atrial fibrillation Status: Acute Assessment and Plan: * HR rate controlled * resumed Amio and Eliquis (9) UTI (urinary tract infection): Code(s): N39.0 - Urinary tract infection, site not specified Status: Acute Assessment and Plan: Family had concerns that patient seemed more confused. Urinalysis obtained showing 1+ leuk, pyuria, negative nitrate. CBC E with normal white count at 8.9. creatinine is slightly elevated 1.34. * urine culture pending * started on cefdinir * encourage p.o. fluids * repeat BMP tomorrow Plan Code status: Full code per patient DVT prophylaxis: Eliquis Stress ulcer prophylaxis: Protonix 40 daily PT/OT notes: Swing bed Disposition: patient was admitted to [facility] bed for continued rehabilitation with impaired mobility and gait with severe pain. Plan is for patient to swing for continued rehabilitation patient and family would like patient to return to her assisted living at discharge. Transfer Discharge Sum: Med Medications Active and Home Medications: Home Medications acetaminophen 325 mg tablet (Tylenol) 325 mg PO DAILY 01/27/24 [History Confirmed 01/30/24] apixaban 2.5 mg tablet (Eliquis) 2.5 mg PO BID 01/27/24 [History Confirmed 01/30/24] aripiprazole 15 mg tablet (Abilify) 15 mg PO DAILY 01/27/24 [History Confirmed 01/30/24] aspirin 81 mg tablet,delayed release (Adult Low Dose Aspirin) 81 mg PO DAILY 01/27/24 [History Confirmed 01/30/24] calcium 600 mg (as carbonate)-vitamin D3 10 mcg (400 unit) tablet (Calcium 600 + D(3)) 1 tablet PO DAILY 01/27/24 [History Confirmed 01/30/24] diclofenac sodium 1 % topical gel (Voltaren Arthritis Pain) See Rx Instructions .Route .COMPLEX 01/27/24 [History Confirmed 01/30/24] docusate sodium 100 mg tablet (Stool Softener) 100 mg PO BID 01/27/24 [History Confirmed 01/30/24] duloxetine 60 mg capsule,delayed release (Cymbalta) 60 mg PO DAILY 01/27/24 [History Confirmed 01/30/24] escitalopram oxalate 10 mg tablet (Lexapro) 10 mg PO DAILY 01/27/24 [History Confirmed 01/30/24] famotidine 40 mg tablet (Pepcid) 40 mg PO DAILY 01/27/24 [History Confirmed 01/30/24] ferrous sulfate 324 mg (65 mg iron) tablet,delayed release 324 mg PO BID 01/27/24 [History Confirmed 01/30/24] gabapentin 100 mg capsule (Neurontin) 100 mg PO TID 01/27/24 [History Confirmed 01/30/24] hydrocodone 5 mg-acetaminophen 325 mg tablet 1 tablet PO BID 01/27/24 [History Confirmed 01/30/24] lactulose 10 gram/15 mL oral solution (Enulose) 20 ml PO Q8-10H 01/27/24 [History Confirmed 01/30/24] lorazepam 0.5 mg tablet (Ativan) 0.5 mg PO BID 01/27/24 [History Confirmed 01/30/24] magnesium oxide 400 mg (241.3 mg magnesium) tablet (MagOx) 400 mg PO BID 01/27/24 [History Confirmed 01/30/24] melatonin 3 mg tablet 3 mg PO HS 01/27/24 [History Confirmed 01/30/24] metoprolol succinate 25 mg tablet,extended release 24 hr (Toprol XL) 25 mg PO DAILY 01/27/24 [History Confirmed 01/30/24] omeprazole 20 mg capsule,delayed release 20 mg PO DAILY 01/27/24 [History Confirmed 01/30/24] oxybutynin chloride 5 mg tablet 2.5 mg PO BID 01/27/24 [History Confirmed 01/30/24] polyethylene glycol 3350 17 gram/dose oral powder (Miralax) 17 g PO PRN PRN Cons tipation 01/27/24 [History Confirmed 01/30/24] sucralfate 1 gram tablet (Carafate) 1 g PO QID 01/27/24 [History Confirmed 01/30/24] sumatriptan succinate 50 mg tablet (Imitrex) 50 mg PO PRN PRN Headache 01/27/24 [History Confirmed 01/30/24] vit C 250 mg-vit E 90 mg-zinc 10 mg-copper 1 [id number] capsule (Healthy Eyes SuperVision2) 1 cap PO BID 01/27/24 [History Confirmed 01/30/24] amiodarone 200 mg tablet (Pacerone) 200 mg PO Q72H #1 tablet 01/30/24 [Rx Confirmed 01/30/24] cyclobenzaprine 10 mg tablet 10 mg PO TID #1 tablet 01/30/24 [Rx Confirmed 01/30/24] polyethylene glycol 3350 17 gram oral powder packet (Miralax) 17 g PO QAM #1 ea 01/30/24 [Rx Confirmed 01/30/24] Active Medications Acetaminophen (Acetaminophen 325 Mg Tablet) 650 mg PO Q6H PRN PRN Reason: Mild Pain (1-3) or Fever Last Admin: 02/04/24 12:25 Dose: 650 mg Amiodarone HCl (Amiodarone Hcl 200 Mg Tablet) 200 mg PO Q72H [facility] Last Admin: 02/02/24 08:50 Dose: 200 mg Apixaban (Apixaban 2.5 Mg Tablet) 2.5 mg PO BID [facility] Last Admin: 02/04/24 16:32 Dose: 2.5 mg Aripiprazole (Aripiprazole 5 Mg Tablet) 15 mg PO DAILY [facility] Stop: 03/01/24 08:59 Last Admin: 02/04/24 08:20 Dose: 15 mg Aspirin (Aspirin 81 Mg Enteric Tablet) 81 mg PO DAILY [facility] Last Admin: 02/04/24 08:24 Dose: 81 mg Cefdinir (Cefdinir 300 Mg Capsule) 300 mg PO Q12HR [facility] Last Admin: 02/04/24 21:58 Dose: Not Given Cyclobenzaprine HCl (Cyclobenzaprine Hcl 10 Mg Tablet) 10 mg PO TID [facility] Last Admin: 02/04/24 16:32 Dose: 10 mg Docusate Sodium (Docusate Sodium 100 Mg Capsule) 100 mg PO BID [facility] Last Admin: 02/04/24 16:34 Dose: 100 mg Duloxetine HCl (Duloxetine Hcl 30 Mg Capsule.) 60 mg PO QAM [facility] Last Admin: 02/04/24 08:22 Dose: 60 mg Escitalopram Oxalate (Escitalopram Oxalate 10 Mg Tablet) 10 mg PO DAILY [facility] Last Admin: 02/04/24 08:23 Dose: 10 mg Famotidine (Famotidine 20 Mg Tablet) 40 mg PO DAILY [facility] Last Admin: 02/04/24 08:21 Dose: 40 mg Ferrous Sulfate (Ferrous Sulfate [address]) 325 mg BY MOUTH BID [facility] Last Admin: 02/04/24 16:33 Dose: 325 mg Gabapentin (Gabapentin 100 Mg Capsule) 100 mg PO TID [facility] Last Admin: 02/04/24 16:34 Dose: 100 mg Lactulose (Lactulose 20 Gm/30 Ml Udc) 13.9606099 gm PO HS PRN PRN Reason: Constipation Lorazepam (Lorazepam (*Crx) 0.5 Mg Tablet) 0.5 mg PO BID [facility] Last Admin: 02/04/24 16:33 Dose: 0.5 mg Magnesium Oxide (Magnesium Oxide 400 Mg Tablet) 400 mg PO BID [facility] Last Admin: 02/04/24 16:33 Dose: 400 mg Melatonin (Melatonin 3 Mg Tablet) 3 mg PO HS [facility] Last Admin: 02/04/24 21:58 Dose: Not Given Metoprolol Succinate (Metoprolol Succinate Ext Rel 25 Mg Tabcr) 25 mg PO DAILY [facility] Last Admin: 02/04/24 08:19 Dose: 25 mg Multivitamins/Minerals (Opti-Gen Tab) 1 tablet PO BID [facility] Last Admin: 02/04/24 16:32 Dose: 1 tablet Ondansetron HCl (Ondansetron Hcl Odt 4 Mg Tablet) 4 mg PO Q6H PRN PRN Reason: Nausea And Vomiting Oxybutynin Chloride (Oxybutynin Chloride 2.5 Mg Tab) 2.5 mg PO BID [facility] Last Admin: 02/04/24 16:32 Dose: 2.5 mg Oxycodone/Acetaminophen (Oxycodone/Acetaminophen (*Crx) 10-325 Mg Tablet) 1 tab PO Q4H PRN PRN Reason: Pain Rated 7-10 Last Admin: 02/03/24 02:31 Dose: 1 tab Oxycodone/Acetaminophen (Oxycodone/Acetaminophen (*Crx) 5-325 Mg Tablet) 1 tablet PO Q4H PRN PRN Reason: Pain Rated 4-6 Pantoprazole Sodium (Pantoprazole 40 Mg Tablet) 40 mg PO QAM [facility] Last Admin: 02/04/24 08:24 Dose: 40 mg Polyethylene Glycol (Polyethylene Glycol 3350 17 Gm Powd.Pack) 17 gm PO QAM [facility] Last Admin: 02/04/24 08:25 Dose: Not Given Sucralfate (Sucralfate 1 Gm Tablet) 1 gm PO QID [facility] Last Admin: 02/04/24 22:02 Dose: Not Given Sumatriptan Succinate (Sumatriptan Succinate 25 Mg Tablet) 50 mg PO PRN PRN PRN Reason: Headache Last Admin: 01/31/24 17:34 Dose: 50 mg Transfer Discharge Sum: Hosp Hospital Course Hospital course: Emerald Reeves is a 83 year old female who initally presented to the emergency department from her assisted living facility with complaints of inability to ambulate. Per patient and daughter at bedside patient was unable to get bed or ambulate due to severe pelvic pain patient and daughter report this has been progressively getting worse however this is the 1st time the patient has not been able to ambulate on her own. patient denied she has had any loss bowel or incontinence, denied any chest pain, shortness breath, n ausea, vomiting, or abdominal pain. patient did endorsed severe left-sided hip pain and inability to apply any pressure to left side. labs were unremarkable in the emergency department hip and pelvis x-ray just showed old rami pelvic fracture and mild osteoarthritis. patient was admitted to the medical unit for further pain control physical and occupational therapy and inability to ambulate. She was then medically cleared and admitted as a swing bed for further PT and OT needs for strengthening and endurance. While inpatient as a swing bed she suffered an unwitnessed fall. Nursing contacted me at 1803 to report patient had suffered an unwitnessed fall. Patient denies loss of consciousness. She was able to ambulate back to her bed with staff assistance without complaints of pain to her legs or hips. She did complain of pain to her right arm. Stat CT head and cervical spine ordered as well as right shoulder, elbow, and wrist x-ray. Q4 neurological checks and vitals ordered as well as fall precautions. Patient was A&O x 4 per nursing notes. 2000: Imaging shows no acute intracranial process with head CT. X-ray of right shoulder shows possible humeral head elevation which may represent rotator cuff tear. X-ray of right elbow shows proximal fracture of right radius. CT cervical spine shows possible longitudinal fracture of the posterior aspect of the second vertebrae. Patient was placed in a cervical spine collar and right arm sling. Neurovascular checks every four hours ordered. Case was discussed with Dr Pope regarding the possibility of right proximal radial fracture and right rotator cuff tear. No surgical intervention needed at this time. Recommended sling or long arm splint if pain is severe. He suspects the rotator cuff tear is chronic based on her age and would be non-operative initially. Plan for orthopedic follow up as an outpatient. CT of right elbow is pending. Case was discussed with Dr Yen, neurosurgery regarding possible C2 fracture. No emergent surgical intervention is warranted but would recommend transferring to [place] for MRI imaging and formal inpatient consultation. She would agree with zoey Burger. Attempted transfer for [facility] but admitting provider would recommended transferring out for trauma evaluation. [facility] transfer center notified and Dr Espinoza with [facility] trauma center has accepted as a level 3. The patient will transfer in serious condition. Patient's daughter, Nu was notified and updated on recent events. Time Spent with Patient Time attestation: Total time spent providing and/or coordinating transfer services: 180
--- NOTE | 2024-02-04 23:57 | PC.NURSE ---
Pt transferred to [facility] post fall at 1805. Pt adamantly refused the arm sling and tore the cervical collar in front of staff and pt became very aggressive w/staff. Pt began swinging at staff progressively. Pt was given time to calm down w/in sight of staff for pt safety. Pt's daughter called to notify her of pt's condition and behaviors. Pt's daughter, Araceli, aware of pt's behavior and stated, You can sedate her or restrain her, I give my permission. Staff attempted to have daughter possibly come to the facility w/the daughter's refusal. Pt became the most cooperative w/female staff, and thus this RN gave the pt her space as much as possible. Pt still was somewhat combative w/female staff and using vulgar terms for staff.
--- NOTE | 2024-02-05 00:29 | PC.NURSE ---
2100 communications administrator aware of not allowing staff to apply collar, sling, and will not take any of her clarita meds. claims we are holding her in the basement of [employer]. mother is left in car and has no sweater. denies falling and we are only attempting to hurt her. that nurse yusra has been talking with daughter and daughter not wanting to come in.
--- NOTE | 2024-02-05 13:03 | PCCCNOTE ---
130-Received a call from Gia in Care Coordination with [facility] in [facility] [phone] ext [phone]. Stated they would like to discharge the pt back to [facility] bed however was directed to Edy since there is no CM present at [facility] on the weekend. This CM contacted the awning hanger supervisor for direction and was advised to reach out to the [facility] provider to see if they would accept. Called and spoke to Helena Wynne whom was agreeable to a fax, reviewing the pt's H&P and will call Leivasy back if is accepting of this admission. Gia the CM with [facility] was notified and shared the fax number to [facility] of [phone] and direct line of [phone] for any further questions.-soraya.
--- NOTE | 2024-02-05 16:00 | PCCCNOTE ---
1600-Per Helena Wynne there is no therapist in house to review the pt's currently PT/OT needs until 02/07/24 and readmission would be appropriate at that time. Did call Tekoa KHADIJAH and AMARI with [facility] at [phone] ext [phone] with this information.
== END 2024-02-04 23:30 | disposition short-term general hospital (02) | DRG 949 ==
PROVIDERS: Admitting Provider Internal Medicine; PCP Family Medicine; Visit Provider Nurse Practitioner Acute Care
DX: S39.013D Strain of muscle, fascia and tendon of pelvis, subsequent encounter (principal); I48.20 Chronic atrial fibrillation, unspecified; N39.0 Urinary tract infection, site not specified; S12.100A Unspecified displaced fracture of second cervical vertebra, initial encounter for closed fracture; S52.101A Unspecified fracture of upper end of right radius, initial encounter for closed fracture; W19.XXXA Unspecified fall, initial encounter; Y92.230 Patient room in hospital as the place of occurrence of the external cause; R26.2 Difficulty in walking, not elsewhere classified; R54 Age-related physical debility; D64.9 Anemia, unspecified; M16.12 Unilateral primary osteoarthritis, left hip; M47.816 Spondylosis without myelopathy or radiculopathy, lumbar region; F41.9 Anxiety disorder, unspecified; F32.A Depression, unspecified; Y93.9 Activity, unspecified; Z91.81 History of falling; Z79.01 Long term (current) use of anticoagulants; Z87.11 Personal history of peptic ulcer disease; Z79.82 Long term (current) use of aspirin
CPT/HCPCS: 36415; 70450; 71045; 72125; 73030; 73070; 73100; 73200; 80053; 81001; 85025; 87086; 87088; 97110; 97161; 97165; 97530; 97535; A4565; A9270; L0150

== ENCOUNTER 2024-02-08 11:51 | Inpatient (IN) | payer MEDICARE, SELFPAY ==
[2024-02-08 12:10] VITALS: BP 124/74; PULSE 78; RESP 18; TEMP 36.1; O2SAT 95
--- NOTE | 2024-02-08 14:26 | PC.NURSE ---
1200 patient here per ambulance to room 204 for ssb service after a fall with fx c2. alert and orient and then the nextgets confused and then has to retold answers of questions she has asked several times.
[2024-02-08 16:00] VITALS: BP 121/49; PULSE 80; RESP 16; TEMP 36.5; O2SAT 95
[2024-02-08] MEDS: oxyBUTYnin CHLORIDE 2.5 MG TAB PO (16:28)
[2024-02-08] MEDS: DOCUSATE SODIUM 100 MG CAPSULE PO (16:29)
[2024-02-08] MEDS: CEFDINIR 300 MG CAPSULE PO (16:29)
[2024-02-08] MEDS: MAGNESIUM OXIDE 400 MG TABLET PO (16:29)
[2024-02-08] MEDS: LORazepam (*CRX) 0.5 MG TABLET PO (16:29)
[2024-02-08] MEDS: SUCRALFATE 1 GM TABLET PO ×2 (16:30→20:31)
[2024-02-08] MEDS: FERROUS SULFATE 325 MG TABLET DR BY MOUTH (16:30)
[2024-02-08] MEDS: GABAPENTIN 100 MG CAPSULE PO (16:30)
--- NOTE | 2024-02-08 17:05 | P.HP_ITS ---
H&P: HPI History of Present Illness Date/Time: 02/10/24 16:05 Chief Complaint: Swing Narrative: This is a 83 year old female that has been admitted to the hospital for swing needs patient has who came to back to us after a fall lthat she had while in this facility and it was found that she had a C2 fracture and a right proximal radial fracture. Patient required a [place] collar and she is schedule to follow up with Dr. Jolly in Q 1 week and she is has a hand splint and there is no surgical intervention. Patient has returned here for phyiscal therapy and occupational therapy. Mrs. Reeves pain is under control and she continues she is able to eat and drink without difficulties. Patient is high risk for falls and needs assistance with the [employer]. Review of Systems Review of Systems: C2 fracture, wrist fracture All systems reviewed & are unremarkable except as noted in HPI and below PMFSH Past Medical History Medical History (Updated 02/10/24 @ 19:02 by Ivory Fields NP) Anxiety and depression Atrial fibrillation C2 cervical fracture Chronic anemia Gastric perforation PUD (peptic ulcer disease) Surgical History Surgical History History of knee replacement Social History Social History Smoking status: Never smoker Alcohol intake: never Substance use: never Substance use type: does not use Do You Feel Safe in your Home?: Yes Lack of Transportation: No Lack of Food: Never True Current Housing: I Have Housing Concerned About Future Housing: No Difficulty Paying Gas/Electric Bills: No Difficulty Paying for Meds: No Currently Unemployed: No Education: Bachelor's Degree Difficulty w/ Childcare or Family Care: No Spiritual care concerns: No Meds Home Medications and Allergies Home Medications Medication Instructions Recorded Confirmed Type acetaminophen 325 mg tablet 325 mg PO DAILY 01/27/24 02/08/24 History (Tylenol) apixaban 2.5 mg tablet (Eliquis) 2.5 mg PO BID 01/27/24 02/08/24 History aripiprazole 15 mg tablet (Abilify) 5 mg PO DAILY 01/27/24 02/08/24 History aspirin 81 mg tablet,delayed 81 mg PO DAILY 01/27/24 02/08/24 History release (Adult Low Dose Aspirin) calcium 600 mg (as 1 tablet PO DAILY 01/27/24 02/08/24 History carbonate)-vitamin D3 10 mcg (400 unit) tablet (Calcium 600 + D(3)) docusate sodium 100 mg tablet 100 mg PO BID 01/27/24 02/08/24 History (Stool Softener) duloxetine 60 mg capsule,delayed 60 mg PO DAILY 01/27/24 02/08/24 History release (Cymbalta) escitalopram oxalate 10 mg tablet 10 mg PO DAILY 01/27/24 02/08/24 History (Lexapro) ferrous sulfate 324 mg (65 mg 324 mg PO BID 01/27/24 02/08/24 History iron) tablet,delayed release gabapentin 100 mg capsule 100 mg PO TID 01/27/24 02/08/24 History (Neurontin) lactulose 10 gram/15 mL oral 20 ml PO QHS PRN Constipation 01/27/24 02/08/24 History solution (Enulose) lorazepam 0.5 mg tablet (Ativan) 0.5 mg PO BID 01/27/24 02/08/24 History magnesium oxide 400 mg (241.3 mg 400 mg PO BID 01/27/24 02/08/24 History magnesium) tablet (MagOx) metoprolol succinate 25 mg 25 mg PO DAILY 01/27/24 02/08/24 History tablet,extended release 24 hr (Toprol XL) omeprazole 20 mg capsule,delayed 20 mg PO DAILY 01/27/24 02/08/24 History release oxybutynin chloride 5 mg tablet 2.5 mg PO BID 01/27/24 02/08/24 History polyethylene glycol 3350 17 17 g PO PRN PRN Constipation 01/27/24 02/08/24 History gram/dose oral powder (Miralax) sucralfate 1 gram tablet (Carafate) 1 g PO QID 01/27/24 02/08/24 History sumatriptan succinate 50 mg tablet 50 mg PO PRN PRN Headache 01/27/24 02/08/24 History (Imitrex) amiodarone 200 mg tablet (Pacerone) 200 mg PO Q72H #1 tablet 01/30/24 02/08/24 Rx cyclobenzaprine 10 mg tablet 10 mg PO TID #1 tablet 01/30/24 02/08/24 Rx cefdinir 300 mg capsule 300 mg PO Q12H 02/08/24 02/08/24 History lidocaine HCl 4 % topical patch 1 patch topical DAILY 02/08/24 02/08/24 History ondansetron HCl 4 mg tablet 4 mg PO Q6H PRN Nausea 02/08/24 02/08/24 History oxycodone-acetaminophen 10 mg-325 1 tablet PO Q4H PRN Pain (Scale 02/08/24 02/08/24 History mg tablet Score 4-6) sennosides 8.6 mg-docusate sodium 1 tablet PO DAILY PRN Constipation 02/08/24 02/08/24 History 50 mg tablet (Laxative Stool Softener With Senna) Allergies Allergy/AdvReac Type Severity Reaction Status Date / Time No Known Allergies Allergy Verified 01/27/24 06:19 Vital Signs Vital Signs - 24 hr 02/10/24 00:00 02/10/24 08:54 02/10/24 07:45 Temperature 97.8 F 97.6 F Pulse Rate 76 79 79 Respiratory Rate 16 16 Blood Pressure 107/49 L 114/79 Pulse Oximetry 97 95 Oxygen Delivery Room Air Room Air Exam Const: General: no acute distress HENMT: Mouth: Yes moist mucous membranes Eyes: General: appearance normal, both eyes and all related structures Resp: Effort & Inspection: normal respiratory effort Auscultation: clear to auscultation bilaterally and diminished lung sounds (right side slightly ) Cardio: Rate: regular rate Rhythm: regular rhythm GI: GI Palp: Yes Soft to palpation Auscultation: normal bowel sounds Neuro: General: gait normal (deferred at the time of my visit) Extrem: General: normal to inspection Psych: Mental Status: mental status grossly normal H&P: Results Labs Labs: Short CBC 02/10/24 Range/Units 11:42 WBC 8.7 (4.8-10.8) K/mm3 Hgb 10.8 L (11.7-13.8) g/dL Hct 32.9 L (35.0-42.0) % Plt Count 393 (150-420) K/mm3 BMP 02/10/24 11:42 Sodium 135 L Potassium 4.2 Chloride 101 Carbon Dioxide 24 BUN 26 H Creatinine 1.14 H Glucose 107 H Calcium 9.1 Liver Function 02/10/24 Range/Units 11:42 Total Bilirubin 0.5 (0.00-1.00) mg/dL AST 12 L (15-37) U/L ALT 13 L (14-59) U/L Alkaline Phosphatase 96 (46-116) U/L Albumin 2.9 L (3.4-5.0) g/dL Urine 02/10/24 Range/Units 13:40 Urine Color Yellow (Yellow) Urine Appearance Clear (Clear) Urine pH 6.0 (5.0-8.0) Ur Specific Hensel 1.020 (1.010-1.020) Urine Protein Negative (Negative) Urine Glucose (UA) Negative (Negative) Assessment and Plan Assessment and plan (1) UTI (urinary tract infection): Code(s): N39.0 - Urinary tract infection, site not specified Status: Acute Assessment and Plan: * TREATED AND RESOLVED (2) C2 cervical fracture: Code(s): S12.100A - Unspecified displaced fracture of second cervical vertebra, initial encounter for closed fracture Status: Acute Assessment and Plan: * [employer] collar * Dr Jolly in 1 week * fall precaution * Keep area clean and dry check daily * (3) Fracture of wrist: Code(s): S62.109A - Fracture of unspecified carpal bone, unspecified wrist, initial encounter for closed fracture Status: Acute Assessment and Plan: * PT OT EVALUATION AND TREAT * NO SURGICAL INTERVENTION * FALL PRECAUTION (4) Weakness: Code(s): R53.1 - Weakness Status: Acute Assessment and Plan: * PT/OT EVALUATE AND TREAT
[2024-02-08 17:41] VITALS: BMI 24.8
--- NOTE | 2024-02-08 17:50 | ADMGEN ---
1200 This patient, Emerald Reeves, was admitted to 2nd Floor Room 204-1 for status post fall with fx of c2. [place] j collar in place and sling r arm in place. Patient/family oriented to hospital policies and general routines including ID bracelet, bed and alarms, visiting hours, pain management, procedures, bathroom and other care routines, personal items, smoking policy, room service/diet, and visiting hours. Information on how to activate the Rapid Response Team has been discussed. Patient/Family are encouraged to report perceived risks to care and to ask questions if they do not understand what they are told or what they should do.
[2024-02-08] MEDS: APIXABAN 2.5 MG TABLET PO (20:31)
[2024-02-08] MEDS: CYCLOBENZAPRINE HCL 10 MG TABLET PO (20:31)
[2024-02-09] VITALS: BP 108/42; PULSE 74; RESP 18; TEMP 36.3; O2SAT 95
[2024-02-09] MEDS: CEFDINIR 300 MG CAPSULE PO ×2 (00:29→12:05)
[2024-02-09 08:00] VITALS: BP 98/42; PULSE 96; RESP 16; TEMP 36.3; O2SAT 95
[2024-02-09] MEDS: LACTULOSE 20 GM/30 ML UDC 13.3333333 GM PO (08:45)
[2024-02-09] MEDS: LIDOCAINE 5% PATCH 1 PATCH TRANSDERM (08:45)
[2024-02-09 08:47] VITALS: PULSE 94
[2024-02-09] MEDS: CALCIUM/VITAMIN D 250 MG/3.125 MCG (125 I.U.) TABLET 1 TABLET PO (08:47)
[2024-02-09] MEDS: METOPROLOL SUCCINATE EXT REL 25 MG TABCR PO (08:47)
[2024-02-09] MEDS: ARIPiprazole 5 MG TABLET PO (08:47)
[2024-02-09] MEDS: LORazepam (*CRX) 0.5 MG TABLET PO ×2 (08:47→16:19)
[2024-02-09] MEDS: SUCRALFATE 1 GM TABLET PO ×4 (08:47→20:00)
[2024-02-09] MEDS: MAGNESIUM OXIDE 400 MG TABLET PO ×2 (08:47→16:19)
[2024-02-09 08:48] VITALS: PULSE 94
[2024-02-09] MEDS: DULoxetine HCL 30 MG CAPSULE.DR 60 MG PO (08:48)
[2024-02-09] MEDS: AMIODARONE HCL 200 MG TABLET PO (08:48)
[2024-02-09] MEDS: APIXABAN 2.5 MG TABLET PO ×2 (08:48→20:01)
[2024-02-09] MEDS: DOCUSATE SODIUM 100 MG CAPSULE PO ×2 (08:48→16:18)
[2024-02-09] MEDS: PANTOPRAZOLE 40 MG TABLET PO (08:48)
[2024-02-09] MEDS: GABAPENTIN 100 MG CAPSULE PO ×3 (08:48→16:19)
[2024-02-09] MEDS: ESCITALOPRAM OXALATE 10 MG TABLET PO (08:48)
[2024-02-09] MEDS: oxyBUTYnin CHLORIDE 2.5 MG TAB PO ×2 (08:48→16:19)
[2024-02-09] MEDS: FERROUS SULFATE 325 MG TABLET DR BY MOUTH ×2 (08:48→16:18)
[2024-02-09] MEDS: ASPIRIN 81 MG ENTERIC TABLET PO (08:49)
[2024-02-09] MEDS: HYDROcodone/acetaminophen (*CRX) 5-325 MG TABLET 1 TAB PO ×2 (12:04→20:00)
[2024-02-09 16:00] VITALS: BP 108/59; PULSE 78; RESP 20; TEMP 36.6; O2SAT 94
[2024-02-09] MEDS: traMADol HCL (*CRX) 25 MG TABLET PO (16:18)
--- NOTE | 2024-02-09 19:31 | PC.NURSE ---
Pt set off bed alarm attempting to stand independently. Zenaida Licona RN discovered the pt sitting at the bedside; pt became argumentative w/Zenaida. This RN attempted to have the pt lay back down in bed and pt refused calling this RN What you're saying is stupid; you're stupid. I got my mind back and they sent me here and I want to go home. This RN explained that she recently had a fall and is here for physical therapy. Pt still argumentative, but did lay back down in bed. Bed alarm still on/active for pt safety.
[2024-02-09] MEDS: CYCLOBENZAPRINE HCL 10 MG TABLET PO (20:00)
[2024-02-10] VITALS: BP 107/49; PULSE 76; RESP 16; TEMP 36.6; O2SAT 97
[2024-02-10] MEDS: CEFDINIR 300 MG CAPSULE PO ×2 (00:51→13:14)
--- NOTE | 2024-02-10 03:40 | PC.NURSE ---
Went in to do rounding on patient. Found patient sitting on the side of bed. Patient then wanted to get into her chair. This nurse turns off the bed alarm to assist patient to the recliner. Patient becomes impatient and confused and tries to stand with no gait belt or walker in front of her. Educated patient on importance of the gait belt and walker for assisting with ambulation. This nurse then applied the gait belt to patient and assisted her to her feet. Using the walker patient slowly and unsteadily as she was shakey while moving. Patient sat down in recliner and the chair alarm was turned on for patient safety. Patient then stated that she left her purse on the bus and needed it. She became rude when I tried to let her know that we were not on a bus but in the hospital. She pointed to one of the chairs located in the room and said are you stupid or can you see where i am pointing to. She then instructed me that she has fell down the bus steps and hurt her elbow. Patient has had a separate incident where she did fall and fractured her elbow. She then asked me in a mean tone what grade I had completed. She then states was it second grade? This nurse asked patient if she was hurting and would like something for the pain. She said yes that her elbow was hurting and her neck was hurting. This nurse administered pain medication for a pain that was described as an 8 out of 10 on the pain scale. Patient also given fresh ice water at this time.
--- NOTE | 2024-02-10 03:45 | PC.NURSE ---
Charge nurse entered room at request of this RN to assist with a confused patient. Manager Data Warehousing nurse was also asked to get patients purse from the bus seat. Charge nurse also told patient that we were not on a bus. Patient then told charge nurse that she needed her purse out of the freezer compartment but could not get it out because it was frozen. Charge nurse tried to tell patient that there was a bag on the chair but it only contained shoes and clothes and patient became agitated with the charge nurse. After charge nurse exited room patient then asks this nurse are you going to call Araceli?' This nurse asked why I would need to call Araceli. Patient states to tell her that I fell down the bus stairs. When I told her that she did not fall down the bus stairs she called me pitiful. This nurse asked why I am pitiful and patient states because everything you have done to me. Again this nurse asks patient what did I do to her and she smiles and says everything. This nurse made sure the chair alarm was on and patient was comfortable before dimming light and leaving room.
[2024-02-10] MEDS: HYDROcodone/acetaminophen (*CRX) 5-325 MG TABLET 1 TAB PO ×2 (03:49→20:10)
[2024-02-10 07:45] VITALS: BP 114/79; PULSE 79; RESP 16; TEMP 36.4; O2SAT 95
[2024-02-10] MEDS: LACTULOSE 20 GM/30 ML UDC 13.3333333 GM PO (08:53)
[2024-02-10 08:54] VITALS: PULSE 79
[2024-02-10] MEDS: FERROUS SULFATE 325 MG TABLET DR BY MOUTH ×2 (08:54→16:10)
[2024-02-10] MEDS: MAGNESIUM OXIDE 400 MG TABLET PO ×2 (08:54→16:10)
[2024-02-10] MEDS: LORazepam (*CRX) 0.5 MG TABLET PO ×2 (08:54→16:10)
[2024-02-10] MEDS: METOPROLOL SUCCINATE EXT REL 25 MG TABCR PO (08:54)
[2024-02-10] MEDS: LIDOCAINE 5% PATCH 1 PATCH TRANSDERM (08:54)
[2024-02-10] MEDS: DULoxetine HCL 30 MG CAPSULE.DR 60 MG PO (08:55)
[2024-02-10] MEDS: SUCRALFATE 1 GM TABLET PO ×4 (08:55→20:10)
[2024-02-10] MEDS: ESCITALOPRAM OXALATE 10 MG TABLET PO (08:55)
[2024-02-10] MEDS: ASPIRIN 81 MG ENTERIC TABLET PO (08:55)
[2024-02-10] MEDS: oxyBUTYnin CHLORIDE 2.5 MG TAB PO ×2 (08:55→16:10)
[2024-02-10] MEDS: ARIPiprazole 5 MG TABLET PO (08:55)
[2024-02-10] MEDS: PANTOPRAZOLE 40 MG TABLET PO (08:55)
[2024-02-10] MEDS: GABAPENTIN 100 MG CAPSULE PO ×3 (08:55→16:10)
[2024-02-10] MEDS: DOCUSATE SODIUM 100 MG CAPSULE PO ×2 (08:55→16:10)
[2024-02-10] MEDS: APIXABAN 2.5 MG TABLET PO ×2 (08:55→20:10)
[2024-02-10] MEDS: CALCIUM/VITAMIN D 250 MG/3.125 MCG (125 I.U.) TABLET 1 TABLET PO (08:55)
--- NOTE | 2024-02-10 11:13 | ECG_ITS ---
Test Date: 2024-02-10 11:52:02 Measurements Intervals [place] Rate: 80 P: 67 [place]: 236 QRS: -56 QRSD: 98 T: 84 QT: 389 QTc: 451 Interpretive Statements SINUS RHYTHM WITH FIRST DEGREE AV BLOCK LEFT ANTERIOR FASCICULAR BLOCK LEFT VENTRICULAR HYPERTROPHY AND ST-T CHANGE CANNOT R/O SEPTAL INFARCT, AGE INDETERMINATE BASELINE ARTIFACT- I, II, III, AVR, AVL, AVF, V1, V3 ABNORMAL ECG No previous ECG available for comparison Electronically Signed On 02-10-2024 11:56:27 WATCH ASSEMBLY INSPECTOR by Delvis Morelos D.O.
[2024-02-10 11:45] LABS: Hematocrit 32.9 % (35.0-42.0); Hemoglobin 10.8 g/dL (11.7-13.8); Mean Corpuscular HGB Conc 32.8 g/dL (32-36); Mean Corpuscular Volume 88.2 fL (78.0-102.0); Mean Platelet Volume 10.5 fl (9.2-11.8); Platelet Count Result 393 K/mm3 (150-420); Red Blood Count 3.73 M/mm3 (4.20-5.40); Red Cell Distribution Width 12.3 % (11.6-14.4); White Blood Count 8.7 K/mm3 (4.8-10.8)
--- NOTE | 2024-02-10 12:12 | PCPTNOTE ---
Attempted to treat patient this morning, however patient refused. She notes that her butt hurts and she is not going to walk. Upon entry of DUSTING AND BRUSHING MACHINE OPERATOR, patient is calling out for someone to get her shoes so she can go home. After several minutes of discussion with patient, nursing was called in. Patient continues to refuse therapy when educated on importance of improving strength to return to the assisted living.
[2024-02-10 12:35] LABS: Alanine Aminotransferase 13 U/L (14-59); Albumin Level 2.9 g/dL (3.4-5.0); Alkaline Phosphatase 96 U/L (46-116); Anion Gap 10 mmol/L (4-12); Aspartate Amino Transferase 12 U/L (15-37); Bilirubin,Total 0.5 mg/dL (0.00-1.00); Blood Urea Nitrogen 26 mg/dL (7-18); Calcium 9.1 mg/dL (8.5-10.1); Carbon Dioxide 24 mmol/L (21-32); Chloride 101 mmol/L (98-108); Estimated CRCL calculation 27 ml/min; Estimated Glomerular Filt Rate 46; Glucose 107 mg/dL (70-99); Osmolality Calculated 284 mOsm/kg (285-295); Potassium 4.2 mmol/L (3.5-5.1); Sodium 135 mmol/L (136-145); Total Protein 6.3 g/dL (6.4-8.2)
[2024-02-10] MEDS: traMADol HCL (*CRX) 25 MG TABLET PO (13:14)
[2024-02-10 13:47] LABS: Add Urine Microscopic? YES; Appearance Urine Clear (Clear); Bilirubin Urine Negative (Negative); Blood Urine 1+ (Negative); Glucose Urine UA Negative (Negative); Ketones Urine Trace (Negative); Leukocyte Esterase Ur 2+ LEU/UL (Negative); Nitrate Urine Positive (Negative); Protein Urine Negative (Negative); Urobilinogen Urine 0.2 mg/dL (0.2-1.0)
[2024-02-10 14:00] LABS: Color Urine Yellow (Yellow); Squamous Epithelial Cell Urine Few /hpf (Few)
[2024-02-10 14:01] LABS: Bacteria Urine 1+ /hpf
[2024-02-10] MEDS: MEROPENEM 1 GM/NS 100 ML 1 GM/100 ML BAG IVPB (16:09)
[2024-02-10 16:20] VITALS: BP 104/50; PULSE 81; RESP 18; TEMP 36.3; O2SAT 95
[2024-02-10] MEDS: CYCLOBENZAPRINE HCL 10 MG TABLET PO (20:10)
[2024-02-10] MEDS: ONDANSETRON HCL ODT 4 MG TABLET PO (20:10)
[2024-02-11] VITALS: BP 124/55; PULSE 79; RESP 17; TEMP 36.3; O2SAT 93
[2024-02-11] MEDS: MEROPENEM 1 GM/NS 100 ML 1 GM/100 ML BAG IVPB ×2 (05:00→16:30)
[2024-02-11 07:40] VITALS: BP 128/49; PULSE 80; RESP 18; TEMP 36.2; O2SAT 95
--- NOTE | 2024-02-11 08:05 | PM.EVENT ---
Event Note Event Note Event Note: Patient has had some increased confusion labs and UA completed and Suspicious of urinary tract infection, patient had a UA done on 02/02 and with started on cefdinir which showed no growth for final report however at this time patient's UA is positive for leukocytes, nitrates, bacteria have some concern for possible ESBL since worsened while on cefdinir initiated meropenem at this time pending cultures and sensitivities.
[2024-02-11] MEDS: LACTULOSE 20 GM/30 ML UDC 13.3333333 GM PO (09:07)
[2024-02-11] MEDS: LIDOCAINE 5% PATCH 1 PATCH TRANSDERM (09:07)
[2024-02-11 09:08] VITALS: PULSE 80
[2024-02-11] MEDS: METOPROLOL SUCCINATE EXT REL 25 MG TABCR PO (09:08)
[2024-02-11] MEDS: ESCITALOPRAM OXALATE 10 MG TABLET PO (09:08)
[2024-02-11] MEDS: LORazepam (*CRX) 0.5 MG TABLET PO ×2 (09:08→16:30)
[2024-02-11] MEDS: DOCUSATE SODIUM 100 MG CAPSULE PO ×2 (09:08→16:30)
[2024-02-11] MEDS: oxyBUTYnin CHLORIDE 2.5 MG TAB PO ×2 (09:08→16:30)
[2024-02-11] MEDS: SUCRALFATE 1 GM TABLET PO ×4 (09:08→20:39)
[2024-02-11] MEDS: MAGNESIUM OXIDE 400 MG TABLET PO ×2 (09:08→16:30)
[2024-02-11] MEDS: FERROUS SULFATE 325 MG TABLET DR BY MOUTH ×2 (09:08→16:30)
[2024-02-11] MEDS: APIXABAN 2.5 MG TABLET PO ×2 (09:08→20:39)
[2024-02-11] MEDS: CALCIUM/VITAMIN D 250 MG/3.125 MCG (125 I.U.) TABLET 1 TABLET PO (09:08)
[2024-02-11] MEDS: ARIPiprazole 5 MG TABLET PO (09:08)
[2024-02-11] MEDS: GABAPENTIN 100 MG CAPSULE PO ×3 (09:08→16:30)
[2024-02-11] MEDS: DULoxetine HCL 30 MG CAPSULE.DR 60 MG PO (09:08)
[2024-02-11] MEDS: ASPIRIN 81 MG ENTERIC TABLET PO (09:09)
[2024-02-11] MEDS: PANTOPRAZOLE 40 MG TABLET PO (09:09)
[2024-02-11] MEDS: HYDROcodone/acetaminophen (*CRX) 5-325 MG TABLET 1 TAB PO ×2 (10:09→20:39)
--- NOTE | 2024-02-11 11:53 | PCPTNOTE ---
Nurse reports pt is having difficulty staying awake and was just given pain medication. Attempted to see patient, however patient cannot stay alert and awake during treatment.
[2024-02-11 16:35] VITALS: BP 121/43; PULSE 72; RESP 18; TEMP 36.3; O2SAT 95
--- NOTE | 2024-02-11 22:40 | PC.NURSE ---
assumed care. report received from [facility]
--- NOTE | 2024-02-11 23:14 | PC.NURSE ---
2240 report to mandi galvez . all questions answered
[2024-02-12] VITALS: BP 100/60; PULSE 63; RESP 16; TEMP 35.8; O2SAT 93
--- NOTE | 2024-02-12 00:07 | PC.NURSE ---
resting quietly on hospital bed. thomas meredith in place. sling to right arm. resp even and unlabored. woke patient to ask about pain control. states she is feeling better, just tired . call light is in reach.
[2024-02-12] MEDS: MEROPENEM 1 GM/NS 100 ML 1 GM/100 ML BAG IVPB ×2 (04:32→15:17)
[2024-02-12 08:00] VITALS: BP 106/47; PULSE 68; RESP 16; TEMP 36.3; O2SAT 92
[2024-02-12] MEDS: LIDOCAINE 5% PATCH 1 PATCH TRANSDERM (08:14)
[2024-02-12] MEDS: LACTULOSE 20 GM/30 ML UDC 13.3333333 GM PO (08:16)
[2024-02-12] MEDS: CALCIUM/VITAMIN D 250 MG/3.125 MCG (125 I.U.) TABLET 1 TABLET PO (08:17)
[2024-02-12] MEDS: oxyBUTYnin CHLORIDE 2.5 MG TAB PO ×2 (08:18→16:15)
[2024-02-12] MEDS: PANTOPRAZOLE 40 MG TABLET PO (08:18)
[2024-02-12] MEDS: ACETAMINOPHEN 500 MG TABLET PO ×2 (08:18→20:36)
[2024-02-12] MEDS: LORazepam (*CRX) 0.5 MG TABLET PO ×2 (08:18→16:15)
[2024-02-12 08:19] VITALS: PULSE 68
[2024-02-12] MEDS: APIXABAN 2.5 MG TABLET PO ×2 (08:19→20:30)
[2024-02-12] MEDS: AMIODARONE HCL 200 MG TABLET PO (08:19)
[2024-02-12] MEDS: GABAPENTIN 100 MG CAPSULE PO ×3 (08:19→16:16)
[2024-02-12] MEDS: MAGNESIUM OXIDE 400 MG TABLET PO ×2 (08:20→16:15)
[2024-02-12] MEDS: SUCRALFATE 1 GM TABLET PO ×4 (08:20→20:37)
[2024-02-12] MEDS: DULoxetine HCL 30 MG CAPSULE.DR 60 MG PO (08:20)
[2024-02-12 08:21] VITALS: PULSE 68
[2024-02-12] MEDS: METOPROLOL SUCCINATE EXT REL 25 MG TABCR PO (08:21)
[2024-02-12] MEDS: ARIPiprazole 5 MG TABLET PO (08:21)
[2024-02-12] MEDS: DOCUSATE SODIUM 100 MG CAPSULE PO ×2 (08:21→16:16)
[2024-02-12] MEDS: ESCITALOPRAM OXALATE 10 MG TABLET PO (08:21)
[2024-02-12] MEDS: ASPIRIN 81 MG ENTERIC TABLET PO (08:22)
[2024-02-12] MEDS: FERROUS SULFATE 325 MG TABLET DR BY MOUTH ×2 (08:22→16:15)
--- NOTE | 2024-02-12 11:26 | PC.NURSE ---
Inspector Of Dredging was answering a call light on the [place] and heard patient yell, help me I gotta go pee . Inspector Of Dredging went into room and patient was in bed with her call light and phone lying on her belly. Inspector Of Dredging asked why patient did not use call light and patient stated that she couldn't find it. Inspector Of Dredging assisted patient to BS and stayed with patient while she peed. Patient up in chair with call light in lap and chair alarm on.
--- NOTE | 2024-02-12 15:56 | PC.NURSE ---
Patient asked this nurse to loosen or remove her collar, stating that her face is raw on one side. Patient stated that it is on crooked. Sales Training Coordinator asked the charge nurse, and charge nurse stated that we are to leave the collar in place, as is. Then, patient accused this nurse of not giving her her medicine. Nurse asked what medicine she was referring to and patient stated that she nurse didn't give her her antibiotic. Nurse explained that she had just finished her IV antibiotic. Then patient stated that a nurse at [facility] put that collar on her and that this nurse could take it off. Nurse again explained that we are to leave that collar in place. Patient is resting in bed at this time with call light and phone on her belly.
[2024-02-12 16:00] VITALS: BP 130/49; PULSE 69; RESP 16; TEMP 36.3; O2SAT 95
--- NOTE | 2024-02-12 18:57 | PC.NURSE ---
Patient using call light every few minutes with a wide variety of multiple complaints. Patient called because her sling was too heavy, her neck brace was crooked, several times to be assisted to commode so she could have a BM,( but as soon as she got to the commode, she stated that she couldn't go), she lost her rosary that was on the table next to her...etc..
[2024-02-12] MEDS: CYCLOBENZAPRINE HCL 10 MG TABLET PO (20:35)
[2024-02-13] VITALS: BP 121/54; PULSE 68; RESP 16; TEMP 36.2; O2SAT 96
[2024-02-13] MEDS: HYDROcodone/acetaminophen (*CRX) 5-325 MG TABLET 1 TAB PO ×2 (02:50→21:12)
[2024-02-13] MEDS: MEROPENEM 1 GM/NS 100 ML 1 GM/100 ML BAG IVPB ×2 (04:48→15:16)
[2024-02-13 08:00] VITALS: BP 132/56; PULSE 66; RESP 16; TEMP 36.1; O2SAT 95
[2024-02-13] MEDS: LIDOCAINE 5% PATCH 1 PATCH TRANSDERM (08:18)
[2024-02-13] MEDS: LACTULOSE 20 GM/30 ML UDC 13.3333333 GM PO (08:19)
[2024-02-13] MEDS: CALCIUM/VITAMIN D 250 MG/3.125 MCG (125 I.U.) TABLET 1 TABLET PO (08:20)
[2024-02-13] MEDS: SUCRALFATE 1 GM TABLET PO ×4 (08:20→21:13)
[2024-02-13] MEDS: DULoxetine HCL 30 MG CAPSULE.DR 60 MG PO (08:21)
[2024-02-13] MEDS: PANTOPRAZOLE 40 MG TABLET PO (08:22)
[2024-02-13] MEDS: ARIPiprazole 5 MG TABLET PO (08:22)
[2024-02-13] MEDS: oxyBUTYnin CHLORIDE 2.5 MG TAB PO ×2 (08:22→16:40)
[2024-02-13] MEDS: ESCITALOPRAM OXALATE 10 MG TABLET PO (08:23)
[2024-02-13] MEDS: FERROUS SULFATE 325 MG TABLET DR BY MOUTH ×2 (08:23→16:41)
[2024-02-13] MEDS: DOCUSATE SODIUM 100 MG CAPSULE PO ×2 (08:23→16:40)
[2024-02-13] MEDS: LORazepam (*CRX) 0.5 MG TABLET PO ×2 (08:24→16:41)
[2024-02-13] MEDS: GABAPENTIN 100 MG CAPSULE PO ×3 (08:24→16:42)
[2024-02-13] MEDS: ASPIRIN 81 MG ENTERIC TABLET PO (08:24)
[2024-02-13 08:25] VITALS: PULSE 66
[2024-02-13] MEDS: MAGNESIUM OXIDE 400 MG TABLET PO ×2 (08:25→16:41)
[2024-02-13] MEDS: METOPROLOL SUCCINATE EXT REL 25 MG TABCR PO (08:25)
[2024-02-13] MEDS: ACETAMINOPHEN 500 MG TABLET PO ×2 (08:25→16:39)
[2024-02-13] MEDS: APIXABAN 2.5 MG TABLET PO ×2 (08:26→21:14)
[2024-02-13] MEDS: CYCLOBENZAPRINE HCL 10 MG TABLET PO ×2 (12:37→21:13)
[2024-02-13 16:00] VITALS: BP 150/71; PULSE 77; RESP 16; TEMP 36.1; O2SAT 96
[2024-02-14] VITALS: BP 124/63; PULSE 67; RESP 16; TEMP 36.4; O2SAT 93
[2024-02-14] MEDS: MEROPENEM 1 GM/NS 100 ML 1 GM/100 ML BAG IVPB (04:01)
[2024-02-14 08:00] VITALS: BP 113/45; PULSE 67; RESP 14; TEMP 36.3; O2SAT 95
[2024-02-14] MEDS: CALCIUM/VITAMIN D 250 MG/3.125 MCG (125 I.U.) TABLET 1 TABLET PO (08:20)
[2024-02-14] MEDS: LIDOCAINE 5% PATCH 1 PATCH TRANSDERM (09:27)
[2024-02-14] MEDS: LACTULOSE 20 GM/30 ML UDC 13.3333333 GM PO (09:28)
[2024-02-14] MEDS: DULoxetine HCL 30 MG CAPSULE.DR 60 MG PO (09:29)
[2024-02-14] MEDS: ASPIRIN 81 MG ENTERIC TABLET PO (09:29)
[2024-02-14] MEDS: oxyBUTYnin CHLORIDE 2.5 MG TAB PO ×2 (09:29→16:50)
[2024-02-14] MEDS: SUCRALFATE 1 GM TABLET PO ×4 (09:29→20:30)
[2024-02-14] MEDS: PANTOPRAZOLE 40 MG TABLET PO (09:29)
[2024-02-14] MEDS: FERROUS SULFATE 325 MG TABLET DR BY MOUTH ×2 (09:30→16:49)
[2024-02-14] MEDS: LORazepam (*CRX) 0.5 MG TABLET PO ×2 (09:30→16:49)
[2024-02-14] MEDS: ARIPiprazole 5 MG TABLET PO (09:30)
[2024-02-14] MEDS: MAGNESIUM OXIDE 400 MG TABLET PO ×2 (09:30→16:49)
[2024-02-14] MEDS: APIXABAN 2.5 MG TABLET PO ×2 (09:30→20:31)
[2024-02-14] MEDS: GABAPENTIN 100 MG CAPSULE PO ×3 (09:30→16:49)
[2024-02-14] MEDS: DOCUSATE SODIUM 100 MG CAPSULE PO ×2 (09:31→16:49)
[2024-02-14] MEDS: ESCITALOPRAM OXALATE 10 MG TABLET PO (09:31)
[2024-02-14 09:32] VITALS: PULSE 67
[2024-02-14] MEDS: METOPROLOL SUCCINATE EXT REL 25 MG TABCR PO (09:32)
[2024-02-14] MEDS: AMOXICILLIN/CLAVULANATE K 500-125 MG TAB 1 TABLET PO ×2 (10:15→20:30)
--- NOTE | 2024-02-14 11:11 | PM.EVENT ---
Event Note Event Note Event Note: Patient UA with no growth transitioned back to PO Augmentin
[2024-02-14 16:35] VITALS: BP 102/42; PULSE 65; RESP 16; TEMP 36.4; O2SAT 96
[2024-02-14] MEDS: ACETAMINOPHEN 500 MG TABLET PO (17:34)
[2024-02-14 20:00] VITALS: PULSE 65; RESP 16; O2SAT 96
[2024-02-14] MEDS: CYCLOBENZAPRINE HCL 10 MG TABLET PO (20:30)
[2024-02-14] MEDS: HYDROcodone/acetaminophen (*CRX) 5-325 MG TABLET 1 TAB PO (20:31)
[2024-02-15] VITALS: BP 96/46; PULSE 65; RESP 16; TEMP 36.4; O2SAT 95
[2024-02-15 08:00] VITALS: BP 110/55; PULSE 68; RESP 14; TEMP 36.4; O2SAT 98
[2024-02-15] MEDS: LIDOCAINE 5% PATCH 1 PATCH TRANSDERM (08:53)
[2024-02-15] MEDS: ESCITALOPRAM OXALATE 10 MG TABLET PO (08:54)
[2024-02-15] MEDS: AMOXICILLIN/CLAVULANATE K 500-125 MG TAB 1 TABLET PO ×2 (08:54→20:32)
[2024-02-15] MEDS: DULoxetine HCL 30 MG CAPSULE.DR 60 MG PO (08:54)
[2024-02-15] MEDS: CALCIUM/VITAMIN D 250 MG/3.125 MCG (125 I.U.) TABLET 1 TABLET PO (08:54)
[2024-02-15] MEDS: oxyBUTYnin CHLORIDE 2.5 MG TAB PO ×2 (08:54→16:33)
[2024-02-15] MEDS: PANTOPRAZOLE 40 MG TABLET PO (08:54)
[2024-02-15] MEDS: MAGNESIUM OXIDE 400 MG TABLET PO ×2 (08:54→16:32)
[2024-02-15] MEDS: SUCRALFATE 1 GM TABLET PO ×4 (08:54→20:33)
[2024-02-15 08:55] VITALS: PULSE 65
[2024-02-15] MEDS: LORazepam (*CRX) 0.5 MG TABLET PO ×2 (08:55→16:32)
[2024-02-15] MEDS: GABAPENTIN 100 MG CAPSULE PO ×3 (08:55→16:32)
[2024-02-15] MEDS: FERROUS SULFATE 325 MG TABLET DR BY MOUTH ×2 (08:55→16:32)
[2024-02-15] MEDS: APIXABAN 2.5 MG TABLET PO ×2 (08:55→20:31)
[2024-02-15] MEDS: ASPIRIN 81 MG ENTERIC TABLET PO (08:55)
[2024-02-15] MEDS: DOCUSATE SODIUM 100 MG CAPSULE PO ×2 (08:55→16:32)
[2024-02-15] MEDS: ARIPiprazole 5 MG TABLET PO (08:55)
[2024-02-15] MEDS: METOPROLOL SUCCINATE EXT REL 25 MG TABCR PO (08:55)
[2024-02-15 08:56] VITALS: PULSE 68
[2024-02-15] MEDS: LACTULOSE 20 GM/30 ML UDC 13.3333333 GM PO (08:56)
[2024-02-15] MEDS: AMIODARONE HCL 200 MG TABLET PO (08:56)
--- NOTE | 2024-02-15 10:26 | P.PNIM_ITS ---
Progress Note: A&P Assessment and Plan (1) C2 cervical fracture: Code(s): S12.100A - Unspecified displaced fracture of second cervical vertebra, initial encounter for closed fracture Status: Acute Assessment and Plan: * Alison greenfield * Dr Jolly appointment 02/14 for follow-up * fall precaution * pain control * Keep area clean and dry skin check daily (2) Fracture of wrist: Code(s): S62.109A - Fracture of unspecified carpal bone, unspecified wrist, initial encounter for closed fracture Status: Acute Assessment and Plan: * PT OT EVALUATION AND TREAT * NO SURGICAL INTERVENTION * FALL PRECAUTION * Sling in place (3) Weakness: Code(s): R53.1 - Weakness Status: Acute Assessment and Plan: * PT/OT EVALUATE AND TREAT * Secondary to recent trauma and fractures Plan Code status: Full code per patient DVT prophylaxis: Eliquis Stress ulcer prophylaxis: Protonix 40 daily PT/OT notes: SWING BED Disposition: Patient continues admission to [place] in swing bed for rehabilitation following a C2 fracture and proximal right radial fracture progressing slowly some concern she will not be able to care for self at assisted living and may need SNF placement Time Spent With Patient Time with patient: 15 - 25 minutes Subjective Date/time seen: 02/15/24 10:26 Interval history: Patient is an 83-year-old female who was admitted to [facility] for rehabilitation after a fall that resulted in a C2 fracture and right proximal radial fracture. 02/15/24: Assumed Care Patient doing well today more alert and answer questions but does have episodes of intermittent confusion. patient is up in chair wearing her [place] J collar she has follow-up today with Dr. Gerardo reports pain is controlled. patient with no other complaints continues to participate in physical and occupational therapy. Review of Systems Review of Systems: C2 fracture, wrist fracture All systems reviewed & are unremarkable except as noted in HPI and below Exam Narrative: * GENERAL: Alert and oriented x 3. No acute distress. * EYES: EOMI. No scleral icterus. PERRLA. * HEENT: Moist mucous membranes. * LUNGS: Clear to auscultation bilaterally. No accessory muscle use. * CARDIOVASCULAR: Regular rate and rhythm. No murmur. No JVD. S1-S2 * ABDOMEN: Soft, non tenderness and non-distended. No palpable masses. * EXTREMITIES: No edema. Non-tender * SKIN: No rashes or lesions. Skin warm, dry. * NEUROLOGIC: No focal neurological deficits. CN II-XII grossly intact * PSYCHIATRIC: Appropriate mood and affect. Good judgement and insight. No visual or auditory hallucinations. No suicidal or homicidal ideation. Objective Data Vital Signs Vital Signs: Vital Signs - 24 hr 02/14/24 16:35 02/14/24 20:00 02/15/24 00:00 Temperature 97.5 F L 97.5 F L Pulse Rate 65 65 65 Respiratory Rate 16 16 16 Blood Pressure 102/42 L 96/46 L Pulse Oximetry 96 96 95 Oxygen Delivery Room Air Room Air Room Air 02/15/24 08:55 02/15/24 08:56 02/15/24 08:00 Temperature 97.6 F Pulse Rate 65 68 68 Respiratory Rate 14 Blood Pressure 110/55 L Pulse Oximetry 98 Oxygen Delivery Room Air Intake/Output Intake/Output: Intake & Output 02/12/24 02/13/24 02/14/24 02/15/24 23:59 23:59 23:59 23:59 Intake Total 1025 1290 1590 480 Output Total 350 300 Balance 200 833 4449 480 Meds/Results Medications: Active Medications Generic Name Dose Route Start Last Admin Trade Name Freq PRN Reason Stop Dose Admin Acetaminophen 500 mg 02/08/24 13:24 02/14/24 17:34 Acetaminophen 500 Mg Tablet PO 500 mg Q6H PRN Administration Mild Pain (1-3) or Fever Hydrocodone Bitart/Acetaminophen 1 tab 02/08/24 13:25 02/14/24 20:31 Hydrocodone/Acetaminophen (*Crx) 5-325 Mg Tablet PO 1 tab Q6H PRN Administration Pain Rated 7-10 Amiodarone HCl 200 mg 02/09/24 09:00 02/15/24 08:56 Amiodarone Hcl 200 Mg Tablet PO 200 mg Q72HR LOKI Administration Amoxicillin/Clavulanate Potassium 1 tablet 02/14/24 10:00 02/15/24 08:54 Amoxicillin/Clavulanate K 500-125 Mg Tab PO 02/19/24 21:01 1 tablet Q12HR LOKI Administration Apixaban 2.5 mg 02/08/24 21:00 02/15/24 08:55 Apixaban 2.5 Mg Tablet PO 2.5 mg Q12HR LOKI Administration Aripiprazole 5 mg 02/09/24 09:00 02/15/24 08:55 Aripiprazole 5 Mg Tablet PO 5 mg QAM LOKI Administration Aspirin 81 mg 02/09/24 09:00 02/15/24 08:55 Aspirin 81 Mg Enteric Tablet PO 81 mg DAILY LOKI Administration Calcium Carbonate 1 tablet 02/09/24 08:00 02/15/24 08:54 Calcium/Vitamin D 250 Mg/3.125 Mcg (125 I.U.) Tablet PO 1 tablet DAILY@0800 LOKI Administration Cyclobenzaprine HCl 10 mg 02/08/24 12:37 02/14/24 20:30 Cyclobenzaprine Hcl 10 Mg Tablet PO 10 mg TID PRN Administration Muscle Spasm Docusate Sodium 100 mg 02/08/24 17:00 02/15/24 08:55 Docusate Sodium 100 Mg Capsule PO 100 mg BID LOKI Administration Duloxetine HCl 60 mg 02/09/24 09:00 02/15/24 08:54 Duloxetine Hcl 30 Mg Capsule.Dr PO 60 mg QAM LOKI Administration Escitalopram Oxalate 10 mg 02/09/24 09:00 02/15/24 08:54 Escitalopram Oxalate 10 Mg Tablet PO 10 mg DAILY LOKI Administration Ferrous Sulfate 325 mg 02/08/24 17:00 02/15/24 08:55 Ferrous Sulfate [address] BY MOUTH 325 mg BID LOKI Administration Gabapentin 100 mg 02/08/24 13:00 02/15/24 08:55 Gabapentin 100 Mg Capsule PO 100 mg TID LOKI Administration Lactulose 13.1391623 gm 02/09/24 09:00 02/15/24 08:56 Lactulose 20 Gm/30 Ml Udc PO 13.3456584 gm QAM [facility] Administration Lidocaine 1 patch 02/09/24 09:00 02/15/24 08:53 Lidocaine 5% Patch TRANSDERM 1 patch DAILY LOKI Administration Lorazepam 0.5 mg 02/08/24 17:00 02/15/24 08:55 Lorazepam (*Crx) 0.5 Mg Tablet PO 0.5 mg BID [facility] Administration Magnesium Oxide 400 mg 02/08/24 17:00 02/15/24 08:54 Magnesium Oxide 400 Mg Tablet PO 400 mg BID [facility] Administration Metoprolol Succinate 25 mg 02/09/24 09:00 02/15/24 08:55 Metoprolol Succinate Ext Rel 25 Mg Tabcr PO 25 mg DAILY [facility] Administration Ondansetron HCl 4 mg 02/08/24 12:37 02/10/24 20:10 Ondansetron Hcl Odt 4 Mg Tablet PO 4 mg Q6H PRN Administration Nausea Oxybutynin Chloride 2.5 mg 02/08/24 17:00 02/15/24 08:54 Oxybutynin Chloride 2.5 Mg Tab PO 2.5 mg BID [facility] Administration Pantoprazole Sodium 40 mg 02/09/24 09:00 02/15/24 08:54 Pantoprazole 40 Mg Tablet PO 40 mg QAM [facility] Administration Polyethylene Glycol 17 gm 02/08/24 13:09 Polyethylene Glycol 3350 17 Gm Powd.Pack PO QAM PRN Constipation Senna/Docusate Sodium 1 tab 02/08/24 12:37 Senna/Docusate Sodium Tablet PO DAILY PRN Constipation Sucralfate 1 gm 02/08/24 13:00 02/15/24 08:54 Sucralfate 1 Gm Tablet PO 1 gm QID [facility] Administration Sumatriptan Succinate 50 mg 02/08/24 13:26 Sumatriptan Succinate 25 Mg Tablet PO Q2HR PRN Migraine Headache Tramadol HCl 25 mg 02/08/24 13:24 02/10/24 13:14 Tramadol Hcl (*Crx) 25 Mg Tablet PO 25 mg Q6H PRN Administration Pain Rated 4-6 Quality VTE Prophylaxis VTE prophylaxis: pharmacologic ordered -Patient's previous records reviewed on admission -Consultations reviewed for recommendations -Patient's disposition for safe discharge discussed with insurance case manager Dictation performed by [employer] direct speech recognition software, therefore front office secretary variants and typographical errors may occur. Hospitalist MIPS Advance Care Plan I have confirmed that the patient's Advanced Care Plan is present, code status is documented, or surrogate decision maker is listed in patient medical record.: Yes Medication Reconciliation I have utilized all available resources to obtain, update and review the patients current medications (includes all prescriptions, OTC, herbals, cannabis, and nutritional supplements).: Yes The patient is not eligible for med reconciliation; the patient is in a emergent medical situation where delaying treatment would jeopardize the patients health.: No
[2024-02-15] MEDS: ACETAMINOPHEN 500 MG TABLET PO (16:32)
[2024-02-15 16:35] VITALS: BP 90/44; PULSE 65; RESP 16; TEMP 36.6; O2SAT 95
[2024-02-15] MEDS: HYDROcodone/acetaminophen (*CRX) 5-325 MG TABLET 1 TAB PO (20:31)
[2024-02-15 23:42] VITALS: BP 97/48; PULSE 62; RESP 16; TEMP 36.2; O2SAT 97
[2024-02-16] MEDS: LIDOCAINE 5% PATCH 1 PATCH TRANSDERM (07:55)
[2024-02-16] MEDS: LACTULOSE 20 GM/30 ML UDC 13.3333333 GM PO (07:56)
[2024-02-16] MEDS: DOCUSATE SODIUM 100 MG CAPSULE PO ×2 (07:57→17:08)
[2024-02-16] MEDS: SUCRALFATE 1 GM TABLET PO ×4 (07:57→20:07)
[2024-02-16] MEDS: CALCIUM/VITAMIN D 250 MG/3.125 MCG (125 I.U.) TABLET 1 TABLET PO (07:57)
[2024-02-16] MEDS: LORazepam (*CRX) 0.5 MG TABLET PO ×2 (07:57→17:08)
[2024-02-16] MEDS: FERROUS SULFATE 325 MG TABLET DR BY MOUTH ×2 (07:57→17:08)
[2024-02-16] MEDS: PANTOPRAZOLE 40 MG TABLET PO (07:57)
[2024-02-16] MEDS: ARIPiprazole 5 MG TABLET PO (07:57)
[2024-02-16] MEDS: oxyBUTYnin CHLORIDE 2.5 MG TAB PO ×2 (07:57→17:08)
[2024-02-16] MEDS: MAGNESIUM OXIDE 400 MG TABLET PO ×2 (07:57→17:08)
[2024-02-16] MEDS: DULoxetine HCL 30 MG CAPSULE.DR 60 MG PO (07:57)
[2024-02-16 07:58] VITALS: PULSE 76
[2024-02-16] MEDS: GABAPENTIN 100 MG CAPSULE PO ×3 (07:58→17:08)
[2024-02-16] MEDS: APIXABAN 2.5 MG TABLET PO ×2 (07:58→20:07)
[2024-02-16] MEDS: ESCITALOPRAM OXALATE 10 MG TABLET PO (07:58)
[2024-02-16] MEDS: METOPROLOL SUCCINATE EXT REL 25 MG TABCR PO (07:58)
[2024-02-16 08:00] VITALS: BP 105/46; PULSE 76; RESP 16; TEMP 36.1; O2SAT 97
[2024-02-16] MEDS: AMOXICILLIN/CLAVULANATE K 500-125 MG TAB 1 TABLET PO ×2 (08:14→20:07)
[2024-02-16] MEDS: ASPIRIN 81 MG ENTERIC TABLET PO (08:14)
--- NOTE | 2024-02-16 08:47 | PC.NURSE ---
Patient transported per ambulance to physician appointment at this time.
[2024-02-16 16:00] VITALS: BP 107/48; PULSE 67; RESP 16; TEMP 36.2; O2SAT 96
[2024-02-16] MEDS: HYDROcodone/acetaminophen (*CRX) 5-325 MG TABLET 1 TAB PO (20:06)
[2024-02-17] VITALS: BP 97/49; PULSE 62; RESP 16; TEMP 36.1; O2SAT 98
[2024-02-17 08:00] VITALS: BP 124/68; PULSE 72; RESP 16; TEMP 36.1; O2SAT 95
[2024-02-17] MEDS: LIDOCAINE 5% PATCH 1 PATCH TRANSDERM (08:18)
[2024-02-17] MEDS: LACTULOSE 20 GM/30 ML UDC 13.3333333 GM PO (08:19)
[2024-02-17] MEDS: PANTOPRAZOLE 40 MG TABLET PO (08:20)
[2024-02-17] MEDS: SUCRALFATE 1 GM TABLET PO (08:20)
[2024-02-17] MEDS: CALCIUM/VITAMIN D 250 MG/3.125 MCG (125 I.U.) TABLET 1 TABLET PO (08:20)
[2024-02-17 08:21] VITALS: PULSE 72
[2024-02-17] MEDS: MAGNESIUM OXIDE 400 MG TABLET PO (08:21)
[2024-02-17] MEDS: AMOXICILLIN/CLAVULANATE K 500-125 MG TAB 1 TABLET PO (08:21)
[2024-02-17] MEDS: METOPROLOL SUCCINATE EXT REL 25 MG TABCR PO (08:21)
[2024-02-17] MEDS: FERROUS SULFATE 325 MG TABLET DR BY MOUTH (08:21)
[2024-02-17] MEDS: LORazepam (*CRX) 0.5 MG TABLET PO (08:22)
[2024-02-17] MEDS: GABAPENTIN 100 MG CAPSULE PO (08:22)
[2024-02-17] MEDS: DULoxetine HCL 30 MG CAPSULE.DR 60 MG PO (08:23)
[2024-02-17] MEDS: ARIPiprazole 5 MG TABLET PO (08:23)
[2024-02-17] MEDS: DOCUSATE SODIUM 100 MG CAPSULE PO (08:24)
[2024-02-17] MEDS: APIXABAN 2.5 MG TABLET PO (08:24)
[2024-02-17] MEDS: oxyBUTYnin CHLORIDE 2.5 MG TAB PO (08:24)
[2024-02-17] MEDS: ESCITALOPRAM OXALATE 10 MG TABLET PO (08:24)
[2024-02-17] MEDS: ASPIRIN 81 MG ENTERIC TABLET PO (08:24)
--- NOTE | 2024-02-17 10:07 | PC.NURSE ---
Report called to Suyapa at [facility]. Suyapa voiced understanding.
--- NOTE | 2024-02-17 10:35 | PC.NURSE ---
Patient ready to discharge. Discharge instructions and prescriptions faxed to receiving facility. Suyapa at receiving facility voiced understanding. Personal items sent home with patient. Patient left unit and hospital grounds in w/c, accompanied by staff member from receiving facility.
--- NOTE | 2024-02-19 15:58 | P.DS_ITS ---
DS: Admitting Diagnosis Discharge Date 02/17/24 Admitting Diagnosis 02/18 DS: Discharge Diagnosis Discharge Diagnosis (1) C2 cervical fracture: Code(s): S12.100A - Unspecified displaced fracture of second cervical vertebra, initial encounter for closed fracture Status: Acute Assessment and Plan: * Alison greenfield * Dr Jolly appointment 02/14 for follow-up * fall precaution * pain control * Keep area clean and dry skin check daily (2) Fracture of wrist: Code(s): S62.109A - Fracture of unspecified carpal bone, unspecified wrist, initial encounter for closed fracture Status: Acute Assessment and Plan: * PT OT EVALUATION AND TREAT * NO SURGICAL INTERVENTION * FALL PRECAUTION * Sling in place (3) Weakness: Code(s): R53.1 - Weakness Status: Acute Assessment and Plan: * PT/OT EVALUATE AND TREAT * Secondary to recent trauma and fractures Plan Code status: Full code per patient DVT prophylaxis: Eliquis Stress ulcer prophylaxis: Protonix 40 daily PT/OT notes: SWING BED Disposition: Patient continues admission to [place] in swing bed for rehabilitation following a C2 fracture and proximal right radial fracture progressing slowly some concern she will not be able to care for self at assisted living and may need SNF placement DS: Summary Hospital Course Reason for hospitalization: rehab Hospital Course: Patient is an 83-year-old female who was admitted to [facility] after complaints of inability to ambulate and admitted to medical for evaluation. Per patient and daughter at bedside patient was unable to get bed or ambulate due to severe pelvic pain patient and daughter report this has been progressively getting worse however this is the 1st time the patient has not been able to ambulate on her own. patient denied she has had any loss bowel or incontinence, denied any chest pain, shortness breath, nausea, vomiting, or abdominal pain. patient did endorsed severe left-sided hip pain and inability to apply any pressure to left side. labs were unremarkable during medical admission, hip and pelvis x-ray just showed old rami pelvic fracture and mild osteoarthritis. CT did show muscle strain. Patient required pain control and was evaluated by PT/OT and recommendation was swing bed for continued. During her initial swing bed stay she suffered an unwitnessed fall causing her to suffer a right proximal radial fracture and c2 fracture. She required trauma transfer to [facility] for evaluation. Her right radial fracture was non-operative and ortho recommended non-weight bearing with office follow up with Dr Piña's office. Her C2 fracture required placement of a [place] J collar for 1 week. She had a follow up with Dr Jolly on 02/16/24 and he cleared her of her [place] J collar. Overall she did fairly well with rehab but given the inability to use her right arm she was unable to return to her prior level of function and required prison placement. She was discharged to [facility] on 02/16 in stable condition. Time Spent with Patient Time attestation: Total time spent providing and/or coordinating discharge services:65 Exam Narrative: General: appears comfortable, in no acute distress Respiratory: breathing is unlabored with even chest rise/fall, lungs are clear without wheezing, rhonchi, and crackles Cardiovascular: Rate and rhythm regular, normal s1s2, no murmur Abdomen: Soft, round, non-tender, active bowel sounds Extremities: No cyanosis, edema, clubbing. Pulses 2/2. Right arm in simple sling. Neuro: A&O x 4 Skin: Warm, dry, intact Discharge Plan Discharge Attending physician on discharge: Kvng Longoria Consulting providers: Ivory Fields; Nu Minor; Delvis Morelos Discharging Clinician: Helena Wynne Anticipated Discharge Date/Time: 02/17/24 09:24 Patient Disposition: SNF Activity: may shower Diet: heart healthy Discharge Instructions: You were here as a swing patient for PT and OT. You have done well with therapy but still are requiring Assistance and would not be safe returning to her assisted living at this time. You will discharge to SNF for further PT and OT. You have a right proximal radial fracture of her right arm. Please continue to wear the sling at all times except when sleeping and showering. You are nonweightbearing in your right arm. you should schedule a follow-up appointment with Dr. Pope's office in the next 3 weeks. He will tell you when you can stop wearing the sling and resume weight bearing activities. Dr Jolly saw you yesterday and cleared you from wearing your [place] J neck collar. You are finishing an antibiotic course of Augmentin for urinary tract infection. Your last day of antibiotics is 02/19/2024. Please continue to monitor for signs and symptoms of infection including fever, chills, discomfort with urination, flank pain, lower abdominal pain, nausea or vomiting. You should follow-up with your primary care provider in the next 1-2 weeks given your hospitalizations. Patient Instructions: Amoxicillin/Clavulanate Potassium (By mouth), Fall Prevention for Older Adults (DC), Weakness (DC), Urinary Tract Infection in Older Adults (DC) Stand Alone Forms: General Discharge Information Follow-up/Referrals: Renato Pope MD [Physician] - [facility],MD Jarret [Primary Care Provider] - Discharge Medications: New lorazepam 0.5 mg Tablet 0.5 mg PO BID Qty: 7 0RF amoxicillin-pot clavulanate [Augmentin] 500-125 mg Tablet 1 tablet PO Q12HR Qty: 5 0RF hydrocodone-acetaminophen 5-325 mg Tablet 1 tablet PO Q6H PRN (Reason: Pain Rated 7-10) Qty: 7 0RF calcium carbonate-vitamin D3 [Oyster Shell Calcium-Vit D3] 250 mg-3.125 mcg (125 unit) Tablet 1 tablet PO DAILY@0800 Qty: 30 0RF lidocaine [Lidoderm] 5 % Adhesive Patch,Medicated 1 patch transdermal DAILY Qty: 15 0RF Continued acetaminophen [Tylenol] 325 mg tablet 325 mg PO DAILY aspirin [Adult Low Dose Aspirin] 81 mg tablet,delayed release (DR/EC) 81 mg PO DAILY magnesium oxide [MagOx] 400 mg (241.3 mg magnesium) tablet 400 mg PO BID omeprazole 20 mg capsule,delayed release(DR/EC) 20 mg PO DAILY metoprolol succinate [Toprol XL] 25 mg tablet extended release 24 hr 25 mg PO DAILY oxybutynin chloride 5 mg tablet 2.5 mg PO BID docusate sodium [Stool Softener] 100 mg tablet 100 mg PO BID escitalopram oxalate [Lexapro] 10 mg tablet 10 mg PO DAILY aripiprazole [Abilify] 15 mg tablet 5 mg PO DAILY Rx Instructions: Dose is 5 mg not 15 mg duloxetine [Cymbalta] 60 mg capsule,delayed release(DR/EC) 60 mg PO DAILY calcium carbonate-vitamin D3 [Calcium 600 + D(3)] 600 mg-10 mcg (400 unit) tablet 1 tablet PO DAILY ferrous sulfate 324 mg (65 mg iron) tablet,delayed release (DR/EC) 324 mg PO BID Eliquis 2.5 mg tablet 2.5 mg PO BID Hold Instructions: given recent trauma sucralfate [Carafate] 1 gram tablet 1 g PO QID sumatriptan succinate [Imitrex] 50 mg tablet 50 mg PO PRN PRN (Reason: Headache) Rx Instructions: take one tablet by mouth every day as needed for headache. max of 200 mg. gabapentin [Neurontin] 100 mg capsule 100 mg PO TID polyethylene glycol 3350 [Miralax] 17 gram/dose powder 17 g PO PRN PRN (Reason: Constipation) Rx Instructions: Mix 17 gm (one cap full) in 8 oz of liquid and drink daily as needed for con stipation. lactulose [Enulose] 10 gram/15 mL solution 20 ml PO QHS PRN (Reason: Constipation) Hold Instructions: given diarrhea cyclobenzaprine 10 mg Tablet 10 mg PO TID Qty: 1 0RF amiodarone [Pacerone] 200 mg tablet 200 mg PO Q72H Qty: 1 0RF Rx Instructions: every three days for atrial fibrillation. sennosides-docusate sodium [Lax Stool Softener With Senna] 8.6-50 mg Tablet 1 tablet PO DAILY PRN (Reason: Constipation) lidocaine HCl 4 % Adhesive Patch,Medicated 1 patch TOPICAL DAILY ondansetron HCl 4 mg Tablet 4 mg PO Q6H PRN (Reason: Nausea) Discontinued lorazepam [Ativan] 0.5 mg tablet 0.5 mg PO BID cefdinir 300 mg Capsule 300 mg PO Q12H oxycodone-acetaminophen 10-325 mg Tablet 1 tablet PO Q4H PRN (Reason: Pain (Scale Score 4-6)) Date of admission: 02/08/24 11:51 Primary Care Provider: Leo,Jarret Admitting Provider: Kvng Longoria Attending physician on admission: Nu Minor Condition: Improved Quality VTE Prophylaxis VTE prophylaxis: pharmacologic ordered
--- NOTE | 2024-02-21 13:07 | PC.NURSE ---
Discharge call back to long-term, no questions
== END 2024-02-17 10:35 | DRG 560 ==
PROVIDERS: Admitting Provider Internal Medicine; PCP Family Medicine; Visit Provider Nurse Practitioner Family
DX: S12.100D Unspecified displaced fracture of second cervical vertebra, subsequent encounter for fracture with routine healing (principal); I48.20 Chronic atrial fibrillation, unspecified; D64.9 Anemia, unspecified; R82.90 Unspecified abnormal findings in urine; F41.9 Anxiety disorder, unspecified; F32.A Depression, unspecified; W19.XXXD Unspecified fall, subsequent encounter; Z96.659 Presence of unspecified artificial knee joint; S52.101D Unspecified fracture of upper end of right radius, subsequent encounter for closed fracture with routine healing; Z87.11 Personal history of peptic ulcer disease
CPT/HCPCS: 36415; 80053; 81001; 85027; 87040; 87086; 93005; 97110; 97161; 97166; 97530; 97535; A9270; J2185

== ENCOUNTER 2024-03-17 14:46 | Outpatient (NON) | payer MEDICARE, SELFPAY ==
[2024-03-17 15:02] LABS: Add Urine Microscopic? YES; Appearance Urine Cloudy (Clear); Bilirubin Urine Negative (Negative); Blood Urine Trace-intact (Negative); Color Urine Light Yellow (Yellow); Glucose Urine UA Negative (Negative); Ketones Urine Negative (Negative); Leukocyte Esterase Ur 1+ LEU/UL (Negative); Nitrate Urine Negative (Negative); Protein Urine Negative (Negative); Urobilinogen Urine 0.2 mg/dL (0.2-1.0)
[2024-03-17 15:24] LABS: Bacteria Urine 3+ /hpf; RBC Urine 0-2 /hpf (0-2); Squamous Epithelial Cell Urine Rare /hpf (Few); WBC Urine 21-30 /hpf (0-3)
--- OUTSIDE RECORDS SUMMARY | 2024-03-20 22:45 | XMS_ITS | Encounter Summary ---
Author Organization [facility] Address formerly [facility]6 [facility]. 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 Former Name Role Phone Jarret Martinez MD Primary Care Provider [phone] Robbin Urban MD Unavailable [phone] Reason for Referral * Imaging (Routine) - New Request Specialty Diagnoses / Procedures Referred By Contac orly Referred To Contact RADIOLOGY Diagnoses Visit for screening mammogram Procedures MG SCREENING W Jarret Ruiz MD [address] [place] [phone] Phone: tel: fax: Referral ID Status Reason Start Date Expiration Date V isits Requested Visits Authorized [id number] New Request 09/13/2023 11/12/2024 1 1 Reason for Visit * Imaging (Routine) - New Request Specialty Diagnoses / Procedures Referred By Sam villalba Referred To Contact RADIOLOGY Diagnoses Visit for screening mammogram Procedures MG SCREENING W Jarret Ruiz MD [address] [place] [phone] Phone: tel: fax: Referral ID Status Reason Start Date Expiration Date V isits Requested Visits Authorized [id number] New Request 09/13/2023 11/12/2024 1 1 Encounter Details Date Type Department Care Team (Latest Contact Info) Description 11/01/2023 9:56 AM CDT - 11/01/2023 11:59 PM CDT Hospital Encounter [facility] [address] [place] [address] Jarret Martinez MD [address] [place] [phone] Discharge Disposition: Home or Self Care (Routine Discharge) Social History Tobacco Use Types Packs/Day Years Used Date Smoking Tobacco: Never Smokeless Tobacco: Never Alcohol Use Standard Drinks/Week Comments No 0 (1 standard drink = 0.6 oz pur e alcohol) Humiliation, Afraid, Rape, and Kick questionnair e Answer Date Recorded Within the last year, have y ou been afraid of your partner or ex-partner? No 10/09/2022 Within the last year, have y ou been humiliated or emotionally abused in other ways by your partner or ex-partner? No Within the last year, have y ou been kicked, hit, slapped, or otherwise physically hurt by your partner or ex-partner? No 10/09/2022 Within the last year, have y ou been raped or forced to have any kind of sexual activity by your partner or ex-partner? No 10/09/2022 AUDIT-C Answer Date Recorded Frequency of Alcohol Consumption Never 10/10/2018 Average Number of Drinks Not on file 019 Frequency of Binge Drinking Not on file 11/2018 Overall Financial Resource Strain (CARDIA) Answe r Date Recorded How hard is it for you to pa y for the very basics like food, housing, medical care, and heating? Not hard at all 10/09/2022 Hunger Vital Sign Answer Date Recorded Within the past 12 months, y ou worried that your food would run out before you got the money to buy more. Never true 10/10/19 23 Within the past 12 months, t he food you bought just didn't last and you didn't have money to get more. Never true 10/09/2022 PRAPARE - Transportation Answer Date Re corded In the past 12 months, has l ack of transportation kept you from medical appointments or from getting medications? No 10/2022 In the past 12 months, has l ack of transportation kept you from meetings, work, or from getting things needed for daily living? No 10/09/2022 Housing Stability Vital Sign Answer Anton e Recorded In the last 12 months, was t here a time when you were not able to pay the mortgage or rent on time? No 10/09/2022 In the last 12 months, how many places have you lived? 1 10/09/2022 In the last 12 months, was t here a time when you did not have a steady place to sleep or slept in a intermediate (including now)? No 10/09/2022 Comments No Sex and Gender Information Value Date Recorded Sex Assigned at Not on file Legal Sex Female 12:12 AM SAADIAT Gender Identity Not on file Sexual Orientation Not on file documented as of this encounter Functional Status * Are you deaf or do you have serious difficulty hearing Answer Date of Assessment Author Status Yes 10/09/2022 8:01 AM Michelle Okeefe RN Active * Are you blind or do you have serious difficulty seeing, even when wearing glasses? Answer Date of Assessment Author Status Yes 10/09/2022 8:01 AM Michelle Okeefe RN Active * Do you have serious difficulty walking or climbing stairs? Answer Date of Assessment Author Status No 10/09/2022 8:01 AM Michelle Okeefe RN Active * Do you have difficulty dressing or bathing? Answer Date of Assessment Author Status No 10/09/2022 8:01 AM Michelle Okeefe RN Active * Because of a physical, mental, or emotional condition, do you have difficulty doing errands alone such as visiting a doctor's office or shopping? Answer Date of Assessment Author Status No 10/09/2022 8:01 AM Michelle Okeefe RN Active documented as of this encounter Mental Status * Because of a physical, mental, or emotional condition, do you have serious difficulty concentrating, remembering, or making decisions? Answer Entry Date Author Status No 10/09/2022 8:01 AM Michelle Okeefe RN Active documented in this encounter Medications at Time of Discharge acetaminophen 325 MG tablet 12/24/2018 amiodarone 200 MG tablet TAKE EVERY THIRD DAY docusate sodium 100 MG capsule 0 10/21/2018 ELIQUIS 2.5 MG tablet 04/07/2019 ferrous sulfate, 65 mg elemental, 325 (65 FE) MG tablet Take by mouth 2 (two) times daily. 11/29/2017 gabapentin 100 MG capsule Take 1 capsule (100 mg total) by mouth 3 (three) times daily. 20 capsule 10/15/[address] WebTeb [address]IRIN ADULT LOW ST 81 MG chewable tablet 01/11/2019 lorazepam (ATIVAN) 0.5 MG tablet Take 1 tablet (0.5 mg total) by mouth 2 (two) times daily. 10 tablet 10/15/2018 MAGNESIUM-OXIDE 400 (241.3 Mg) MG tablet 04/07/2019 metoprolol succinate 50 MG 24 hr tablet Take 0.5 tablets (25 mg total) by mouth daily. 30 tablet 12 01/21/2018 Polyethylene Glycol 3350 (PEG 3350) Powder 12/24/2018 sucralfate 1 G tablet 04/28/2019 SUMAtriptan (IMITREX) 50 MG tablet Take 1 tablet (50 mg total) by mouth daily as needed for Migraine. 12/09/2017 ARIPiprazole 15 MG tablet 08/07/2020 02/06/2024 calcium carb-cholecalcife rol (CALTRATE 600+D) 600-20 MG-MCG tablet Take by mouth daily. 02/06/2024 D3 HIGH POTENCY 125 MCG (5000 UT) Cap Take 1 capsule by mouth daily. 07/24/2020 02/06/2024 DULoxetine (CYMBALTA) 60 MG capsule Take 1 capsule (60 mg total) by mouth daily. 02/06/2024 escitalopram 20 MG tablet Take 2 tablets (40 mg total) by mouth daily. 02/06/2024 HYDROcodone-aceta minophen (NORCO) 5-325 MG tabletIndications :Acute Pain < 7 Day Supply Take 1 tablet by mouth every 6 (six) hours as needed. Indications: Acute Pain < 7 Day Supply 15 tablet 10/13/2022 02/06/2024 magnesium oxide 400 (240 Mg) MG tablet 12/23/2018 02/06/2024 metoprolol succinate ER 25 MG 24 hr tablet 05/08/2019 omeprazole 20 MG capsule 05/02/2019 02/06/2024 oxybutynin 5 MG tablet 05/01/2019 02/06/2024 traMADol 50 MG tablet 05/23/2019 02/06/2024 documented as of this encounter Plan of Treatment Not on file documented as of this encounter Goals Goal Patient Goal Type Associated Problems Recent Progress Patient-Stated? Author Family - family caregiver with be involved in care transitions and discharge planning Lifestyle No Dannielle Guillermo RN documented as of this encounter Procedures Procedure Name Priority Date/Time Associated Diagnosis Comments MG SCREENING W ANGELY PAYAL DIGI Routine 11/01/2023 12:01 PM CDT Visit for screening mammogram documented in this encounter Results * MG SCREENING W ANGELY PAYAL DIGI (11/01/2023 12:01 PM CDT) Anatomical Region Laterality Modality Breast Bilateral Mammography 11/01/2023 11:1 5 AM CDT Impressions 11/01/2023 11:15 AM CDT IMPRESSION: No suspicious change since the previous exams. Recommendation: 1: Routine Screening ??Bilateral ??in 1 Year Assessment: ACR BI-RADS 2 - BENIGN FINDING(S) Ordered By: JARRET MARTINEZ Interpreted By: Hugo Snow MD, 11/01/2023 11:15 AM Narrative 11/01/2023 11:15 AM CDT Examination: Digital screening mammogram with CAD. Clinical history: Asymptomatic patient presents for routine screening. Comparison: 09/12/2021, 08/12/2020, 05/26/2019, 07/21/2018. Technique: Bilateral digital mammograms. The exam was interpreted with the use of a computer-aided detection (CAD) system. ??Additional 3-D tomosynthesis images were acquired. Tissue density: The breast tissue is heterogeneously dense. Findings: The breast tissue is heterogeneously dense. The dense tissue may obscure some lesions mammographically. ?? Benign-appearing calcification noted. No suspicious mass, microcalcification or area of architectural distortion can be identified. From a mammographic standpoint, routine followup in one year would seem adequate. 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
--- OUTSIDE RECORDS SUMMARY | 2024-03-20 22:45 | XMS_ITS | Encounter Summary ---
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 with HR. Pt has a walk-inshower with shower seat and grab bar. Pt has a standard toilet with grab bar nearby. Patient reports independence at baseline with ADLs and functional mobility with no AD. Pt owns 4ww. Pt reports this fall she missed a step going out of the house in the garage. Pt reports 1 other fall approx 2 weeks ago tripping over a towel. Pt reports her son was living with her previously but is not anymore. Pt reports her family can assist as needed. Pt reports her daughter usually delivers groceries. Pt reports she pays someone to drive her when needed. Activity Tolerance Endurance Quality Fair Limiting Factors to Endurance Acute deconditioning;Fatigue;Pain;Weakness Cognition Arousal/Alertness Delayed responses to stimuli Attention Span Attends with cues to redirect Memory Decreased recall of precautions Following Commands Follows multistep commands with repetition Bed Mobility Other (Comment) Pt sitting in recliner chair upon arrival/departure. TRANSFERS Sit to Stand SBA/supervision Gait Gait Assistance Contact guard assist Assistive Device 2 Wheeled walker Distance Ambulated (ft) 175 ft (approx.) Other (Comment) Pt ambulates with shorter step length, decreased foot clearance, and decreased gaitspeed. Pt demo decreased heel strike with L foot. Feel pt appears generally unsteady and requires VCs to increase step length and foot clearance. Balance Sitting - Static Independent Sitting - Dynamic Independent Standing - Static CGA;SBA;Support of both upper extremities Standing - Dynamic CGA;Support of both upper extremities Other (Comment) generally unsteady PT Assessment PT Assessment Pt tolerated session well. Pt appears pleasant and motivated but slightly anxious. Ptis generally unsteady during ambulation. Feel pt could benefit from continued PT at swing bed unit before returning home to improve balance, gait, activity tolerance, and overall safety with functional mobility. Patient/Family Training Other (Comment) Pt was educated at length on c-spine precautions. Industrial Chemistry Teacher provided pt with handouts on c-spine precautions and log roll technique. Pt requires increased cues and demonstration on precautions. Recommendation PT Recommendation Swing bed unit Barriers to Community Discharge Lack of caregiver;Safety Plan PT Treatments/Interventions Gait Training;Therapeutic Activities;Neuromuscular re-education Progress Slow progress, decreased activity tolerance PT Frequency 5 times/week PT - Next Appointment 10/13/22 If this is the last treatment note,it will serve as the discharge summary Yes End of Session End of Session Safety Call light within reach;Chair alarm set/activated;Nursing aware of session Education: Primary Learners Name: Juana Hattie Lala Primary Language of learner: Burkinan Patient was educated on precautions transfers balance equipment therapy plan gait safety. Education was completed one to one verbal hands-on demonstration this date. Preference of learning new concepts one to one verbal hands-on demonstration Barriers to education this date were pain fatigue. Response to education this date needs follow up needs assistance. * Dannielle Guillermo RN - 10/13/2022 10:16 AM CDT Have accepting short term rehab bed [facility] [address] [place] [address] #[phone] [facility] transport van will transport pt today @ 1300.Pt will need to be in the main lobby for hop picker @ 1300 today. TRAUMA service EMILIA Gonzalez aware of above. 9th floor charge attendant aware of above. Pt aware/in agreement for above. * OBED King - 10/12/2022 12:30 PM CDT OT Treatment Discharge Recommendation: Swing bed unit DME equipment recommendation: none Activity Recommendation for emergency dept tech: up with assist of 1 using wheeled walker, ambulate to bathroom 10/12/22 0916 Therapy Visit OT Received On 10/09/22 Reason for admission Pt presents following a fall in her garage, missed a step going down. Pt with right eyebrow / facial laceration and C5 fracture through transverse foramen. Pt recommended to wear[place] J collar and follow up outpatient wtih Dr. Jolly. ......... PMH includes afib, anxiety, CAD, depression, migraines, GERD. ..... Orders: eval/treat; activity as tolerated, fall precautions, [place] J. Ordering Provider Nikko Biggs MD Verified Two Patient Identifiers Yes Patient consents to therapy Yes Acute Inpatient OT Time Calculation OT Start Time 915 OT Stop Time 0955 OT Time Calculation (min) 39 min Precautions Spine Precautions Bending;Lifting;Twisting (c-spine) Lifting Precautions Yes Neck Brace Applied Yes General Precautions Fall Risk;Chair Alarm;Bed Alarm Instructed on Precautions Yes;Verbalizes understanding;Needs reinforcement and education Skin Integrity redness and bruising above right eye Other tele, lenin, IV and [place]-J Prior Function PLOF Comments Per eval, patient lives alone in a 1 story house with 1 SADIA with HR. Pt has a walk-inshower with shower seat and grab bar. Pt has a standard toilet with grab bar nearby. Patient reports independence at baseline with ADLs and functional mobility with no AD. Pt owns 4ww. Pt reports this fall she missed a step going out of the house in the garage. Pt reports 1 other fall approx 2 weeks ago tripping over a towel. Pt reports her son was living with her previously but is not anymore. Pt reports her family can assist as needed. Pt reports her daughter usually delivers groceries. Pt reports she pays someone to drive her when needed. Subjective Subjective Rn ok'd session. Patient presents in bed and reports front part of collar is rubbing her. Pain Pain Patient does not offer or c/o pain Activity Tolerance Endurance Quality Fair Limiting Factors to Endurance Acute deconditioning;Fatigue;Pain;Weakness Cognition Overall Cognitive Status Impaired Arousal/Alertness Delayed responses to stimuli Attention Span Attends with cues to redirect Memory Decreased recall of precautions;Decreased recall of recent events Orientation Level Oriented X4 Following Commands Follows one step commands with repetition Safety Judgment Decreased awareness of need for assistance Awareness of Errors Assistance required to identify errors made Deficits Decreased awareness of deficits Problem Solving Assistance required to identify errors made Motor Planning Appears intact Perseveration Not present Initiation Cues to initiate tasks ADL Grooming Assistance Minimal;Standing at sink Grooming Deficit Setup;Steadying;Verbal cueing;Increased time to complete;Standing with assistive device;Wash/dry hands Grooming Comment assist needed to sequence task UE Dressing Assistance Maximal UE Dressing Comment Max assist in flat bed to adjust collar for proper fit with second person holding c-spine LE Dressing Assistance Maximal;In bed LE Dressing Deficit Don/doff R sock;Don/doff L sock Toileting Deficit Grab bar use;Clothing management up;Clothing management down;Perineal hygiene;Increased time to complete;Verbal cueing Toileting Comment Patient using [facility] staff but able to trial use of toilet in bathroom to increase independence. Needs max verbal cues and assist to manage depends. Educated patient on using toilet instead of [place] during the day. Additional Comments Patient was unable to recall anuy of her c-spine precautions; educated throughout session Bed Mobility Supine to Sit Min assist to left Other (Comment) cueing for sequencing/technique and maintenance of cervical precautions Functional Transfers Sit to Stand Contact guard assist Bed to Chair Contact guard assist Toilet Transfers CGA;Grab bars Functional Mobility Patient using wheeled walker at CGA in room with verbal cues for walker management and body positioning Balance Sitting - Static Independent Sitting - Dynamic Independent Standing - Static CGA;Support of both upper extremities Standing - Dynamic CGA Other (Comment) generally unsteady Recommendation OT Recommendation Swing bed unit Barriers to Community Discharge Lack of caregiver;Safety Plan OT Treatment/Intervention Self-care training;Therapeutic exercises;Therapeutic activities;Safety;Functional activity;Patient/family training Progress Slow progress, cognitive deficits OT Frequency 5 times/week OT - Next Appointment 10/12/22 If this is the last treatment note, it will serve as the discharge summary Yes End of Session End of Session Safety Chair alarm set/activated;Call light within reach;Nursing aware of session;Transfer status education Education: Primary Learners Name: Juana Klein Primary Language of learner: Burkinan Patient was educated on precautions transfers ADLs balance bed mobility therapy plan gait safety adaptive skills. Education was completed one to one this date. Preference of learning new concepts one to one Barriers to education this date were confusion fatigue cognition. Response to education this date needs follow up needs assistance. * Dannielle Guillermo RN - 10/12/2022 11:05 AM CDT PASSR screen completed Assessment Pro Individual ID:[id number] Assessment ID:[id number] Spoke with pt @ bedside re therapy recommendations for short term rehab placement.Pt is in agreement for short term rehab placement.She has requested a referral be sent to [facility], since she had had rehab there previously.Referral sent as requested. * Shahab Gonzalez PA-C - 10/12/2022 9:22 AM CDT Images from the original note were not included. PROGRESS NOTE - TRAUMA ACUTE CARE SURGERY SERVICE SHAHAB GONZALEZ PA-C, 10/12/2022, 1:10 PM [facility] ACUTE CARE SURGERY SERVICE: EMERGENCY SURGERY, TRAUMA, SURGICAL CRITICAL CARE [address] [place] [id number] Name: Juana Klein Date of : 1940 Room/Bed: [facility] Date: 10/12/2022 Time: 1:10 PM ASSESSMENT: 82-year-old female who presents with Cervical spine fracture (CMS/HCC) Atrial fibrillation (CMS/HCC) Mitral regurgitation Senile osteoporosis Predominant disturbance of emotions Common migraine Depression Neuropathy On amiodarone therapy Closed nondisplaced fracture of fifth cervical vertebra (CMS/HCC) Vertebral artery dissection (CMS/HCC) Frequent falls Dizziness PLAN: Age-indeterminate fracture of the transverse foramen of C5: Ortho Spine: Dr. Jolly Non-operative management [place] J collar at all times Ok for PT/OT to eval and treat Follow up with Dr. Jolly as an outpatient Left Vertebral Artery Dissection: [place] Vascular Surgery: Dr. Mata Non-operative management ASA 81 mg daily indefinitely to prevent stroke or progression of vertebral artery lesion Afib: Eliquis, home dosing Dizziness with frequent falls at home (3 this week): Echocardiogram given report of frequent dizzy spells at home with 3 falls this week alone Prior Echo in 2018 (Dr. Hanna) demonstrated hyperdynamic LVEF 75%, severe septal hypertrophy, and moderate mitral regurgitation Trauma Care: Home meds resumed 10/11 Pain control Mild: Tylenol 650mg q4h Moderate: Tramadol 50mg q6h- patient is on this at home Severe: [place] 5s q4h VTE PPx: SCDs, on Eliquis General diet Bowel regimen Antiemetics PT/OT, activity as tolerated Encourage pulmonary hygiene, IS Q1H while awake, coughing and deep breathing Labs Na 132, balance of I/Os --> mIVF Vital signs reviewed. Lab results reviewed. Imaging reviewed. Nuclear Technician notes/recommendations reviewed. Case was discussed w/ the patient and/or POA. All questions were answered and concerns were addressed. Note: After I had seen, evaluated and examined the patient today, portions of this note that are unchanged may have been carried forward from previous. Code: Full Code Fall precautions Disposition: Medically stable for discharge. Case management on board for discharge planning, PT/OTrecommending swing bed unit. CM sent referral to [facility] as per patient's request. SUBJECTIVE: Patient sleeping restfully this AM, awoken to name. She slept well last night and is ready to get breakfast ordered. She denies any pain today. Tolerating diet. Last BM yesterday. Freely voiding without complaints. Denies headache, vision changes, neck or back pain, CP, SOB, abdominal pain, N/V/C/D, or dysuria. Significant Interval History: NAEO CURRENT MEDS: Scheduled Meds: amiodarone 200 mg Oral Q3 Days apixaban 2.5 mg Oral BID ARIPiprazole 15 mg Oral Daily aspirin 81 mg Oral Daily bacitracin Topical BID calcium carbonate 1,250 mg Oral Daily citalopram 40 mg Oral Daily DULoxetine 60 mg Oral BID gabapentin 100 mg Oral TID LORazepam 0.5 mg Oral BID metoprolol succinate ER 25 mg Oral Daily pantoprazole EC 40 mg Oral Daily senna-docusate 1 tablet Oral BID solifenacin 5 mg Oral Daily vitamin D3 5,000 Units Oral Daily REVIEW OF SYSTEMS: A 12 point ROS was obtained and negative except as otherwise noted in subjective OBJECTIVE: Temp: [97.5 ??F (36.4 ??C)-98.6 ??F (37 ??C)] 97.7 ??F (36.5 ??C) Pulse: [70-80] 70 Resp: [18] 18 BP: (106-155)/(51-81) 106/51 I/O totals for the last 24 hours: Intake/Output Summary (Last 24 hours) at 10/12/2022 1310 Last data filed at 10/12/2022 0900 Gross per 24 hour Intake 75 ml Output 350 ml Net -275 ml PHYSICAL EXAM: General: Sitting up in bed, NAD. Neurological: Alert, oriented x 4. Anxious. No focal deficits appreciated. Moving all 4 extremitiesspontaneously. Eyes: PERRLA, EOMI Ears: Hearing intact Nose: Midline without septal deviation, no epistaxis, no rhinorrhea Mouth: Mucous membranes moist Neck: Cervical collar in place, trachea midline Cardiovascular: RRR/intermittent Afib, S1/S2 Respiratory:CTAB. No dyspnea or respiratory distress, able to speak in complete sentences, no retractions or accessory muscle use Abdomen: Abdomen is soft, non-tender, and nondistended. No guarding, rigidity, or rebound TTP. Musculoskeletal: Motor/strength intact, SILT in all extremities. Moves all extremities well. Extremities: No erythema, warmth, or tenderness in calves. Capillary refill intact and peripheral pulses palpable. Skin: Skin is race appropriate warm, and dry with sensation intact. No circumoral or peripheral cyanosis noted. No open lesions. Psychiatric: Anxious. Alert and oriented, no hallucinations, delusions, or paranoia. IMAGING: Radiology Results (Last 48 hours) None LABS: Recent Labs Lab 10/08/22 1742 10/09/22 0531 10/12/22 0323 WBC 6.97 5.57 7.91 HGB 10.4* 11.7* 12.7 HCT 30.2* 35.5* 39.0 PLT 169 179 275 NA 130* 137 132* K 3.7 3.7 3.9 CL 98 107 99 CO2 25.6 26.2 27.7 AGAP 6.4 3.8* 5.3 BUN 17 9 19* CR 1.14* 0.79 0.73 GLU 131* 91 99 CA 8.7 8.7 9.2 TP 5.5* -- -- ALB 3.0* -- -- TBIL 0.4 -- -- ALKP 98 -- -- AST 14* -- -- ALT 12* -- -- MAGNESIUM -- -- 2.0 PHOS -- -- 3.1 CULTURES & SENSITIVITIES: No results found for this visit on 10/08/22 (from the past 336 hour(s)). No results found for this visit on 10/08/22 (from the past 336 hour(s)). Cosigned by Matt Valentin MD at 10/12/2022 2:20 PM CDT * Leland Christianson RN - 10/12/2022 1:26 AM CDT Problem: Safety Goal: Patient will be injury free during hospitalization Description: Assess and monitor vitals signs, neurological status including level of consciousness and orientation. Assess patient's risk for falls and implement fall prevention plan of care and interventions per hospital policy. Ensure arm band on, uncluttered walking paths in room, adequate room lighting, call light and overbed table within reach, bed in low position, wheels locked, side rails up per policy, and non-skid footwear provided. Outcome: Progressing Problem: Psychosocial Needs Goal: Demonstrates ability to cope with hospitalization/illness Description: Assess and monitor patients ability to cope with his/her illness. Outcome: Progressing * Sonali Santacruz PTA - 10/11/2022 12:55 PM CDT PT Treatment Discharge Recommendation: Swing bed unit Activity Recommendation for emergency dept tech: up with 1, 2ww, gait thomas hudson 10/11/22 1051 Therapy Visit Ordering Provider Nikko Biggs MD Subjective Upon entering room 962, patient was in supine and agreeable to therapy. Reason for admission Pt presents following a fall in her garage, missed a step going down. Pt with right eyebrow / facial laceration and C5 fracture through transverse foramen. Pt recommended to wear[place] J collar and follow up outpatient wtih Dr. Jolly. ......... PMH includes afib, anxiety, CAD, depression, migraines, GERD. ..... Orders: eval/treat; activity as tolerated, fall precautions, [place] J. Verified Two Patient Identifiers Yes Patient consents to therapy Yes Acute Inpatient PT Time Calculation PT Start Time 1051 PT Stop Time 1110 PT Time Calculation (min) 19 min Precautions Spine Precautions Bending;Lifting;Twisting (c-spine) Lifting Precautions Yes Neck Brace Applied Yes General Precautions Fall Risk;Chair Alarm;Bed Alarm Instructed on Precautions Yes;Verbalizes understanding;Needs reinforcement and education Other tele, lenin, IV and [place] Prior Function PLOF Comments Per eval, patient lives alone in a 1 story house with 1 SADIA with HR. Pt has a walk-inshower with shower seat and grab bar. Pt has a standard toilet with grab bar nearby. Patient reports independence at baseline with ADLs and functional mobility with no AD. Pt owns 4ww. Pt reports this fall she missed a step going out of the house in the garage. Pt reports 1 other fall approx 2 weeks ago tripping over a towel. Pt reports her son was living with her previously but is not anymore. Pt reports her family can assist as needed. Pt reports her daughter usually delivers groceries. Pt reports she pays someone to drive her when needed. Activity Tolerance Endurance Quality Fair Limiting Factors to Endurance Acute deconditioning;Fatigue;Pain;Weakness Cognition Overall Cognitive Status Impaired Arousal/Alertness Delayed responses to stimuli Attention Span Attends with cues to redirect Memory Decreased recall of recent events Orientation Level Oriented X4 Following Commands Follows all commands and directions without difficulty Safety Judgment Decreased awareness of need for assistance Awareness of Errors Assistance required to identify errors made Deficits Decreased awareness of deficits Problem Solving Assistance required to identify errors made Comments Patient is alert and oriented x4, appears more confused this date Bed Mobility Supine to Sit Min assist to left Sit to Supine SBA/supervision Other (Comment) cueing for sequencing/technique and maintenance of cervical precautions TRANSFERS Sit to Stand Contact guard assist Bed to Chair Contact guard assist Gait Gait Assistance Contact guard assist Assistive Device 2 Wheeled walker Distance Ambulated (ft) 40 ft (x 2) Other (Comment) Patient demonstrates decreased yohana, decreased step length, decreased clearance of BLE's, and increased shakiness requiring CGA for safety. Reports using a 4ww at home. Balance Sitting - Static Independent Sitting - Dynamic Independent Standing - Static CGA;Support of both upper extremities Standing - Dynamic CGA;Support of both upper extremities Other (Comment) generally unsteady PT Assessment PT Assessment Patient tolerated treatment session fair this date as patient presents with some confusion, unsteadiness, and fatigues quickly. Patient unable to ambulate distance as previous session. Patient would benefit from a short term stay at a swing bed unit to improve LE strength, endurance, and balance to improve overall functional mobility. Recommendation PT Recommendation Swing bed unit Plan PT Treatments/Interventions Gait Training;Therapeutic Exercises;Therapeutic Activities;Neuromuscular re-education;Patient/family training Progress Slow progress, cognitive deficits PT Frequency 5 times/week PT - Next Appointment 10/11/22 If this is the last treatment note,it will serve as the discharge summary Yes End of Session End of Session Safety Call light within reach;Bed alarm set/activated Education: Primary Learners Name: Juana Klein Primary Language of learner: Burkinan Patient was educated on precautions transfers balance bed mobility therapy plan gait safety. Education was completed one to one verbal hands-on demonstration this date. Preference of learning new concepts one to one verbal hands-on demonstration Barriers to education this date were confusion fatigue. Response to education this date verbalized understanding needs follow up needs assistance. * Maribel Benoit RN - 10/11/2022 11:47 AM CDT Problem: Pain Goal: Patient's pain/discomfort is manageable Description: Assess and monitor patient's pain using appropriate pain scale. Collaborate with interdisciplinary team and initiate plan and interventions as ordered. Re-assess patient's pain level 30 - 60 minutes after pain management intervention. Outcome: Progressing Problem: Safety Goal: Patient will be injury free during hospitalization Description: Assess and monitor vitals signs, neurological status including level of consciousness and orientation. Assess patient's risk for falls and implement fall prevention plan of care and interventions per hospital policy. Ensure arm band on, uncluttered walking paths in room, adequate room lighting, call light and overbed table within reach, bed in low position, wheels locked, side rails up per policy, and non-skid footwear provided. Outcome: Progressing Problem: Daily Care Goal: Daily care needs are met Description: Assess and monitor ability to perform self care and identify potential discharge needs. Outcome: Progressing Problem: Psychosocial Needs Goal: Demonstrates ability to cope with hospitalization/illness Description: Assess and monitor patients ability to cope with his/her illness. Outcome: Progressing Goal: Collaborate with patient/family/caregiver to identify patient specific goals for this hospitalization Outcome: Progressing Problem: Discharge Barriers Goal: Patient's discharge needs are met Description: Collaborate with interdisciplinary team and initiate plans and interventions as needed. Outcome: Progressing Problem: Reduced risk for falls/injury Goal: Reduced Risk for Falls/Injury Outcome: Progressing Goal: Reduced Risk of Confusion (Acute vs Chronic) Outcome: Progressing Goal: Reduced Risk of Symptomatic Depression Outcome: Progressing Goal: Reduced Risk of Altered Elimination Outcome: Progressing Goal: Reduced Risk of Dizziness/Vertigo/Balance Outcome: Progressing Goal: Reduced Risk of Polypharmacy Outcome: Progressing * Shahab Gonzalez PA-C - 10/11/2022 8:04 AM CDT Images from the original note were not included. PROGRESS NOTE - TRAUMA ACUTE CARE SURGERY SERVICE SHAHAB GONZALEZ PA-C, 10/11/2022, 10:21 AM [facility] ACUTE CARE SURGERY SERVICE: EMERGENCY SURGERY, TRAUMA, SURGICAL CRITICAL CARE [address] [place] [id number] Name: Juana Klein Date of : 1940 Room/Bed: [facility] Date: 10/11/2022 Time: 10:21 AM ASSESSMENT: 82-year-old female who presents with Cervical spine fracture (CMS/HCC) Atrial fibrillation (CMS/HCC) Mitral regurgitation Senile osteoporosis Predominant disturbance of emotions Common migraine Depression Neuropathy On amiodarone therapy Closed nondisplaced fracture of fifth cervical vertebra (CMS/HCC) Vertebral artery dissection (CMS/HCC) Frequent falls Dizziness PLAN: Age-indeterminate fracture of the transverse foramen of C5: Ortho Spine: Dr. Jolly Non-operative management [place] J collar at all times Ok for PT/OT to eval and treat Follow up with Dr. Jolly as an outpatient Left Vertebral Artery Dissection: [facility]: Dr. Mata Non-operative management ASA 81 mg daily indefinitely to prevent stroke or progression of vertebral artery lesion Afib: Eliquis, home dosing Dizziness with frequent falls at home (3 this week): Echocardiogram given report of frequent dizzy spells at home with 3 falls this week alone pharmacy technologist paged 10/11 Prior Echo in 2018 (Dr. Hanna) demonstrated hyperdynamic LVEF 75%, severe septal hypertrophy, and moderate mitral regurgitation. General Care: Home meds resumed today Metoprolol ER 25mg qd Amiodarone 200mg q3days Ativan 0.5mg BID Gabapentin 100mg TID Lexapro 40mg qd Cymbalta 60mg qd Abilify 15mg qd Tramadol 50mg Imitrex 50mg for migraines Oxybutynin 5mg qd - hospital alternative is solifenacin Omeprazole 20mg - hospital alternative is pantoprazole Vitamins Of note: patient is getting Prolia shots [id number] for senile osteoperosis Pain control Mild: Tylenol 650mg q4h Moderate: Tramadol 50mg q6h- patient is on this at home Severe: [place] 5s q4h VTE PPx: SCDs, on Eliquis General diet Bowel regimen Antiemetics PT/OT, activity as tolerated Encourage pulmonary hygiene, IS Q1H while awake, coughing and deep breathing Labs - tomorrow. Vital signs reviewed. Lab results reviewed. Imaging reviewed. Nuclear Technician notes/recommendations reviewed. Case was discussed w/ the patient and/or POA. All questions were answered and concerns were addressed. Note: After I had seen, evaluated and examined the patient today, portions of this note that are unchanged may have been carried forward from previous. Code: Full Code Fall precautions Disposition: Pending clinical course will be stable for discharge within 1-2 days pending plan for safe discharge home. Case management on board for discharge planning, PT/OT recommending home with assistance and PT/OT home health. 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 CM to discuss options with the daughter Marysol further when able. Nu is on vacation currently and the son lives in [place]. SUBJECTIVE: Patient states she has a migraine this AM, no different from her migraines in the past, typically takes Imitrex at home. No other sites of pain at this time. Encouraged patient to work with therapiestoday, and instructed patient on the important of wearing her C-collar. Pain well controlled with current regimen. Tolerating diet. Last BM yesterday. Freely voiding without complaints. Denies visionchanges, lightheadedness, photophobia, neck or back pain, CP, SOB, abdominal pain, N/V/C/D, or dysuria. Significant Interval History: NAEO CURRENT MEDS: Scheduled Meds: amiodarone 200 mg Oral Q3 Days apixaban 2.5 mg Oral BID ARIPiprazole 15 mg Oral Daily aspirin 81 mg Oral Daily bacitracin Topical BID calcium carbonate 1,250 mg Oral Daily DULoxetine 60 mg Oral Daily escitalopram 40 mg Oral Daily gabapentin 100 mg Oral TID LORazepam 0.5 mg Oral BID metoprolol succinate ER 25 mg Oral Daily pantoprazole EC 40 mg Oral Daily senna-docusate 1 tablet Oral BID solifenacin 5 mg Oral Daily vitamin D3 5,000 Units Oral Daily REVIEW OF SYSTEMS: A 12 point ROS was obtained and negative except as otherwise noted in subjective OBJECTIVE: Temp: [97.5 ??F (36.4 ??C)-98.1 ??F (36.7 ??C)] 98.1 ??F (36.7 ??C) Pulse: [90-104] 102 BP: (134-145)/(54-83) 140/65 I/O totals for the last 24 hours:No intake or output data in the 24 hours ending 10/11/22 1021 PHYSICAL EXAM: General: Sitting up in bed, NAD. Neurological: Alert, oriented x 4. Anxious. No focal deficits appreciated. Moving all 4 extremitiesspontaneously. Eyes: PERRLA, EOMI Ears: Hearing intact Nose: Midline without septal deviation, no epistaxis, no rhinorrhea Mouth: Mucous membranes moist Neck: Cervical collar in place, trachea midline Cardiovascular: RRR/intermittent Afib, S1/S2 Respiratory:CTAB. No dyspnea or respiratory distress, able to speak in complete sentences, no retractions or accessory muscle use Abdomen: Abdomen is soft, non-tender, and nondistended. No guarding, rigidity, or rebound TTP. Musculoskeletal: Motor/strength intact, SILT in all extremities. Moves all extremities well. Extremities: No erythema, warmth, or tenderness in calves. Capillary refill intact and peripheral pulses palpable. Skin: Skin is race appropriate warm, and dry with sensation intact. No circumoral or peripheral cyanosis noted. No open lesions. Psychiatric: Anxious. Alert and oriented, no hallucinations, delusions, or paranoia. IMAGING: Radiology Results (Last 48 hours) None LABS: Recent Labs Lab 10/08/22 1742 10/09/22 0531 WBC 6.97 5.57 HGB 10.4* 11.7* HCT 30.2* 35.5* PLT 169 179 NA 130* 137 K 3.7 3.7 CL 98 107 CO2 25.6 26.2 AGAP 6.4 3.8* BUN 17 9 CR 1.14* 0.79 GLU 131* 91 CA 8.7 8.7 TP 5.5* -- ALB 3.0* -- TBIL 0.4 -- ALKP 98 -- AST 14* -- ALT 12* -- CULTURES & SENSITIVITIES: No results found for this visit on 10/08/22 (from the past 336 hour(s)). No results found for this visit on 10/08/22 (from the past 336 hour(s)). Cosigned by Maury Hillman MD at 10/11/2022 1:39 PM CDT Associated attestation - Maury Hillman MD - 10/11/2022 1:39 PM CDT I, MAURY HILLMAN MD, discussed the plan of care with JOANNA Helton, who shared in this visit. I have reviewed the JOANNA's documentation and agree with the findings except as I have documented. Ipersonally spent 0 minutes, caring for this patient. MAURY HILLMAN MD * Leland Christianson RN - 10/11/2022 2:24 AM CDT Problem: Pain Goal: Patient's pain/discomfort is manageable Description: Assess and monitor patient's pain using appropriate pain scale. Collaborate with interdisciplinary team and initiate plan and interventions as ordered. Re-assess patient's pain level 30 - 60 minutes after pain management intervention. Outcome: Progressing Problem: Safety Goal: Patient will be injury free during hospitalization Description: Assess and monitor vitals signs, neurological status including level of consciousness and orientation. Assess patient's risk for falls and implement fall prevention plan of care and interventions per hospital policy. Ensure arm band on, uncluttered walking paths in room, adequate room lighting, call light and overbed table within reach, bed in low position, wheels locked, side rails up per policy, and non-skid footwear provided. Outcome: Progressing Problem: Daily Care Goal: Daily care needs are met Description: Assess and monitor ability to perform self care and identify potential discharge needs. Outcome: Progressing * OBED Sr - 10/10/2022 1:45 PM CDT POKER MACHINE ATTENDANT contacted journalists and other writers about patient's refusal today. POKER MACHINE ATTENDANT reports that patient adamantly refused earlier, to a point where she was becoming agitated. POKER MACHINE ATTENDANT recommended holding today. * Bethel Alicia NP - 10/10/2022 11:44 AM CDT Images from the original note were not included. PROGRESS NOTE - TRAUMA ACUTE CARE SURGERY SERVICE BETHEL ALICIA NP, 10/10/2022, 11:44 AM [facility] ACUTE CARE SURGERY SERVICE: EMERGENCY SURGERY, TRAUMA, SURGICAL CRITICAL CARE [address] [place] [address] Name: Juana Klein Date of : 1940 Room/Bed: [facility] Date: 10/10/2022 Time: 11:44 AM ASSESSMENT: 82-year-old female who presents with Cervical spine fracture (CMS/HCC) Closed nondisplaced fracture of fifth cervical vertebra (CMS/HCC) Hyponatremia Vertebral artery dissection (CMS/HCC) Frequent falls Dizziness PLAN: Age-indeterminate fracture of the transverse foramen of C5: Ortho Spine: Dr. Jolly Non-operative management [place] collar at all times Ok for PT/OT to eval and treat Follow up with Dr. Jolly as an outpatient Left Vertebral Artery Dissection: [facility]: Dr. Mata Non-operative management ASA 81 mg daily indefinitely to prevent stroke or progression of vertebral artery lesion Afib: On Eliquis at home which was continued Dizziness with frequent falls at home (3 this week): Continue to await Echocardiogram given report of frequent dizzy spells at home with 3 falls this week alone Prior Echo in 2018 (Dr. Hanna) demonstrated hyperdynamic LVEF 75%, severe septal hypertrophy, and moderate mitral regurgitation. General Care: General Ortho today General diet as tolerated Continue current pain regimen Continue PT/OT, activity as tolerated Encourage pulmonary hygiene, IS Q1H while awake, coughing and deep breathing VTE PPx: SCDs, on Eliquis GI PPx: Pepcid Bowel Regimen: Senokot BID, Glycolax daily PRN Code: Full Code Fall precautions Disposition: Pending clinical course will be stable for discharge within 1-2 days pending plan for safe discharge home. 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 CM to discuss options with the daughter Marysol further when able. Nu is on vacation currently and the son lives in [place]. CHIEF COMPLAINT: Neck pain SUBJECTIVE: Reports mild pain/discomfort in the neck, aching in nature 2-3/10. Denies headache, visual changes, shortness of breath, chest pain, nausea, vomiting, abdominal pain, diarrhea, constipation, dysuria, and numbness or tingling in extremities. She reports falling more frequently recently as well as frequent dizzy spells at home. Significant Interval History: NAEO CURRENT MEDS: Scheduled Meds: apixaban 2.5 mg Oral BID aspirin 81 mg Oral Daily bacitracin Topical BID famotidine 20 mg Intravenous Daily Or famotidine 20 mg Oral Daily senna-docusate 1 tablet Oral BID REVIEW OF SYSTEMS: A 12 point ROS was obtained and negative except as otherwise noted in subjective OBJECTIVE: Temp: [98 ??F (36.7 ??C)-98.4 ??F (36.9 ??C)] 98.4 ??F (36.9 ??C) Pulse: [79-87] 87 Resp: [18] 18 BP: (108-150)/(51-65) 150/65 I/O totals for the last 24 hours: Intake/Output Summary (Last 24 hours) at 10/10/2022 1144 Last data filed at 10/09/2022 1454 Gross per 24 hour Intake 240 ml Output 400 ml Net -160 ml PHYSICAL EXAM: General: Patient is nontoxic in appearance and is in no acute distress. Neurological: Alert, oriented x 4. Anxious. No focal deficits appreciated. No facial asymmetry, tongue is midline, speech is clear. CN II-XII grossly intact. Bilateral grasp, plantar push, and dorsiflexion all 5/5 and equal. Eyes: PERRLA, EOMI, non-icteric Ears: Hearing intact, no otorrhea Nose: Midline without septal deviation, no epistaxis, no rhinorrhea Mouth: Mucous membranes moist Neck: Cervical collar in place. Cardiovascular: RRR/intermittent Afib, S1/S2, No audible murmur, gallop, rub, or extra heart tones Respiratory: No dyspnea or respiratory distress noted, able to speak in complete sentences, no retractions or accessory muscle use, sufficient air entry and CTAB, symmetric chest expansion, no chest wall tenderness Abdomen: Bowel sounds present in all quadrants. Abdomen is soft, non-tender, and nondistended. No guarding, rigidity, or rebound TTP. Musculoskeletal: Motor/strength intact, SILT in all extremities. Moves all extremities well. Extremities: No erythema, warmth, or tenderness in calves. Capillary refill intact and peripheral pulses palpable. Skin: Skin is race appropriate warm, and dry with sensation intact. No circumoral or peripheral cyanosis noted. No open lesions. Psychiatric: Anxious. Alert and oriented, no hallucinations, delusions, or paranoia. - Vital signs, labs, I/O, and imaging personally reviewed LABS: Recent Labs Lab 10/08/22 1742 10/09/22 0531 WBC 6.97 5.57 HGB 10.4* 11.7* HCT 30.2* 35.5* PLT 169 179 NA 130* 137 K 3.7 3.7 CL 98 107 CO2 25.6 26.2 AGAP 6.4 3.8* BUN 17 9 CR 1.14* 0.79 GLU 131* 91 CA 8.7 8.7 TP 5.5* -- ALB 3.0* -- TBIL 0.4 -- ALKP 98 -- AST 14* -- ALT 12* -- CULTURES & SENSITIVITIES: No results found for this visit on 10/08/22 (from the past 336 hour(s)). No results found for this visit on 10/08/22 (from the past 336 hour(s)). Parts of this note may have been brought forward from a previous note. I have seen and examined this patient today and changes were made to my documentation as appropriate. * Berenice Rahman PTA - 10/10/2022 11:15 AM CDT No skilled P.T. RN okayed session. Pt adamantly refusing PT session. Reports she was told from that if she moves she may have a full spinal cord injury. Explained to pt that she has cervical precautions such as no bending, lifting, twisting, but that MD ordered therapy and to ambulate pt. Pt continues to refuse and reports she was told not to ambulate. Informed RN. Will check back as schedule permits at later time/date. Wanted therapist to write her name down so that she could tell daughter. * Madelin Vega NP - 10/09/2022 9:49 PM CDTSummary: Trauma Tertiary Survey Images from the original note were not included. TRAUMA - TERTIARY SURVEY NOTE ACUTE CARE SURGERY SERVICE MADELIN VEGA NP, 10/09/2022, 9:50 PM [facility] ACUTE CARE SURGERY SERVICE: EMERGENCY SURGERY, TRAUMA, SURGICAL CRITICAL CARE [address] [place] [address] Name: Juana Klein Date of : 1940 Room/Bed: [facility] Date: 10/09/2022 Time: 9:50 PM Hospital Problems: Cervical spine fracture (CMS/HCC) Closed nondisplaced fracture of fifth cervical vertebra (CMS/HCC) Hyponatremia Vertebral artery dissection (CMS/HCC) Frequent falls Dizziness Tertiary Assessment: HPI, PMH, PSH, PE, Medications, Imaging, and Labs personally reviewed. New injuries indentified in this survey: None Plan for new injuries found: NA * Michelle Brooks RN - 10/09/2022 5:32 PM CDTSummary: C spine precautions, [place] J brace in place. VS. c/o headache. Tolerating diet. Worked with PT/OT, needs reinforcecment Problem: Pain Goal: Patient's pain/discomfort is manageable Description: Assess and monitor patient's pain using appropriate pain scale. Collaborate with interdisciplinary team and initiate plan and interventions as ordered. Re-assess patient's pain level 30 - 60 minutes after pain management intervention. Outcome: Progressing Problem: Safety Goal: Patient will be injury free during hospitalization Description: Assess and monitor vitals signs, neurological status including level of consciousness and orientation. Assess patient's risk for falls and implement fall prevention plan of care and interventions per hospital policy. Ensure arm band on, uncluttered walking paths in room, adequate room lighting, call light and overbed table within reach, bed in low position, wheels locked, side rails up per policy, and non-skid footwear provided. Outcome: Progressing Problem: Daily Care Goal: Daily care needs are met Description: Assess and monitor ability to perform self care and identify potential discharge needs. Outcome: Progressing Problem: Psychosocial Needs Goal: Demonstrates ability to cope with hospitalization/illness Description: Assess and monitor patients ability to cope with his/her illness. Outcome: Progressing Goal: Collaborate with patient/family/caregiver to identify patient specific goals for this hospitalization Outcome: Progressing Problem: Discharge Barriers Goal: Patient's discharge needs are met Description: Collaborate with interdisciplinary team and initiate plans and interventions as needed. Outcome: Progressing * Linnette Landaverde, OT - 10/09/2022 4:03 PM CDT OT Initial Evaluation Discharge Recommendation: home with assistance & OT home health Activity Recommendation for emergency dept tech: up with assist of 1 with 2ww and c-collar donned *up to chair for all meals ; log roll for bed mobility ; ambulate in toscano several times per day 10/09/22 1500 Therapy Visit OT Received On 10/09/22 OT Evaluation Completed on 10/09/22 Reason for admission Pt presents following a fall in her garage, missed a step going down. Pt with right eyebrow / facial laceration and C5 fracture through transverse foramen. Pt recommended to [place] J collar and follow up outpatient wt Dr. Jolly. ......... PMH includes afib, anxiety, CAD, depression, migraines, GERD. ..... Orders: eval/treat; activity as tolerated, fall precautions, [place] J. Ordering Provider Nikko Biggs MD Verified Two Patient Identifiers Yes Patient consents to therapy Yes Acute Inpatient OT Time Calculation OT Start Time 1521 OT Stop Time 1603 OT Time Calculation (min) 42 min Precautions Spine Precautions Bending;Lifting;Twisting (c-spine) Lifting Precautions Yes Neck Brace Applied Yes ([place] J) General Precautions Fall Risk;Chair Alarm;Bed Alarm Instructed on Precautions Yes;Verbalizes understanding;Needs reinforcement and education Skin Integrity redness and bruising above right eye Other telemetry, purewick, c-collar Subjective Subjective RN ok'd therapy session. Patient received supine in bed, agreeable to therapy evaluation. Prior Function PLOF Comments Patient lives alone in a 1 story house with 1 SADIA with HR. Pt has a walk-in shower with shower seat and grab bar. Pt has a standard toilet with grab bar nearby. Patient reports independence at baseline with ADLs and functional mobility with no AD. Pt owns 4ww. Pt reports this fall shemissed a step going out of the house in the garage. Pt reports 1 other fall approx 2 weeks ago tripping over a towel. Pt reports her son was living with her previously but is not anymore. Pt reports her family can assist as needed. Pt reports her daughter usually delivers groceries. Pt reports she pays someone to drive her when needed. Pain Pain Yes Pain Score Did not rate Location headache Interventions Informed RN;Re-direction;Re-positioning Activity Tolerance Endurance Quality Fair Limiting Factors to Endurance Acute deconditioning;Fatigue;Dizziness Vision - Basic Assessment Current Vision Wears glasses only for reading Vision - Complex Assessment Acuity Able to read employee name badge without difficulty Additional Comments patient reports no acute changes in vision Cognition Overall Cognitive Status WFL Arousal/Alertness Appropriate responses to stimuli Attention Span Appears intact Memory Appears intact Orientation Level Oriented X4 Following Commands Follows all commands and directions without difficulty Safety Judgment Decreased awareness of need for assistance Awareness of Errors Assistance required to identify errors made Deficits Decreased awareness of deficits Problem Solving Assistance required to identify errors made Comments Patient is alert and oriented x4. Pt does appear anxious, repetitive in conversation. Pt with decreased insight into deficits and decreased safety awareness at times. Motor Planning Appears intact Perseveration Not present Initiation Appears intact Cognition Complex Affect Anxious Overall Extremity Assessment Upper Extremity BUE AROM and strength WFL t/o ; baseline RUE shoulder deficits RUE Assessment RUE Assessment WFL LUE Assessment LUE Assessment WFL Hand Function Hand Dominance Right Gross Grasp Right;Left;Functional Coordination Functional Sensation Light Touch No apparent deficits ADL Additional Comments mod indep to don/doff socks seated EOB; SBA for pericare seated on toilet; SBA to complete hand hygiene standing at sink Bed Mobility Rolling Min assist to left Supine to Sit Min assist to left Other (Comment) verbal and tactile cues required for log rolling Functional Transfers Sit to Stand SBA/supervision Bed to Chair SBA/supervision (2ww) Toilet Transfers Modified Independent;Grab bars Functional Mobility SBA/supervision with 2ww in room, bathroom and toscano mocking household distances; CGA with no AD Balance Sitting - Static Independent Sitting - Dynamic Independent Standing - Static SBA Standing - Dynamic SBA;Support of both upper extremities Other (Comment) no overt LOB noted; increased stability noted with use of walker Proprioception Proprioception No apparent deficits Assessment Occupational Profile and History Complexity Moderate (Expanded) Performance Skills Deficits Bathing/showering;Dressing;Functional mobility;Toileting;Meal preparation and cleaning Performance Deficit Level Moderate (3-5 deficits) Clinical Decision Making Moderate (min/mod modifications) Complexity Level of Evaluation Moderate Prognosis Good OT Assess/Eval Other (Comment) Upon OT assessment this date, patient demonstrates slight deficits in ADLs, transfers and functional mobility due to new cervical precautions as well as balance concerns. Pt would benefit from continued skilled OT services to increase safety and independence in self care and mobility tasks. Recommend increased assist upon initial return home from the hospital and home health OT and PT services for home safety evaluation and possible HEP. Recommendation OT Recommendation Home with assistance;Home OT;Home PT;Ambulate with nurse OT Equipment Recommended Currently has DME in Place (pt owns walker) Plan OT Treatment/Intervention Self-care training;Therapeutic exercises;Therapeutic activities;Safety;Functional activity;Patient/family training OT Frequency 5 times/week OT - Next Appointment 10/09/22 If this is the last treatment note, it will serve as the discharge summary Yes End of Session End of Session Safety Chair alarm set/activated;Call light within reach;Nursing aware of session;Transfer status education End of Session Comment pt seated in chair upon OT exit; RN present OT Goals: The below POC to be followed until 10/23/22; at that time POC will be re-assessed to ensure patient is making appropriate progression. Pt will complete dressing with Modified [place] sitting EOB or in chair to increase safety andindependence with ADLs. Pt will complete all grooming and self-feeding with Modified [place] to increased safety and independence with ADLs. Pt will complete ADLs at sink with Modified [place] to increase independence with ADLs. Pt will complete toileting hygiene and clothing management with Modified [place] to increase safety and independence with ADLs. Pt to complete bathing with Modified [place] seated in chair/EOB to increase independence withADLs. Pt will complete bed mobility with Modified [place] with HOB flat to increase safety and independence with functional transfers. Pt will complete transfers all surfaces to/from all surfaces with Modified [place] using wheeled walker to increase functional mobility and transfers. Pt will increase dynamic standing balance standing at sink/dressing completing ADLs with Modified [place] with wheeled walker for 10-20 minutes to increase safety and independence with ADLs and functional transfers. Pt will follow spine precautions with no verbal cuing to increase safety awareness and independencewith ADLs and functional transfers. Education: Primary Learners Name: Juana Hattie Lala Primary Language of learner: Burkinan Patient was educated on precautions exercises transfers ADLs balance bed mobility equipment therapy plan gait safety joint protection. Education was completed one to one verbal hands-on demonstration return demonstration this date. Preference of learning new concepts one to one verbal hands-on demonstration return demonstration Barriers to education this date were anxious. Response to education this date verbalized understanding demos with verbal cues needs follow up. * Fred Ayers, PT - 10/09/2022 4:03 PM CDTSummary: PT Eval PT Initial Evaluation Discharge Recommendation: home with assistance P/T home health DME equipment recommendation: Currently has DME in place Activity Recommendation for emergency dept tech: Up with 1 and 2ww and MEME 10/09/22 1501 Therapy Visit Ordering Provider Nikko Biggs MD PT Received On 10/09/22 Subjective Pt received supine in bed with bed flat for therapy session. Reason for admission Pt presents following a fall in her garage, missed a step going down. Pt with right eyebrow / facial laceration and C5 fracture through transverse foramen. Pt recommended to [place] J collar and follow up outpatient wtih Dr. Jolly. ......... PMH includes afib, anxiety, CAD, depression, migraines, GERD. ..... Orders: eval/treat; activity as tolerated, fall precautions, [place] J. Verified Two Patient Identifiers Yes Patient consents to therapy Yes Acute Inpatient PT Time Calculation PT Start Time 1521 PT Stop Time 1603 PT Time Calculation (min) 42 min Precautions Spine Precautions Bending;Lifting;Twisting (c-spine) Lifting Precautions Yes Neck Brace Applied Yes ([place]-J) General Precautions Fall Risk;Chair Alarm;Bed Alarm Instructed on Precautions Yes;Verbalizes understanding;Needs reinforcement and education Skin Integrity redness and bruising above right eye Other tele, KALEY phelps and [place]-J Prior Function PLOF Comments Patient lives alone in a 1 story house with 1 SADIA with HR. Pt has a walk-in shower with shower seat and grab bar. Pt has a standard toilet with grab bar nearby. Patient reports independence at baseline with ADLs and functional mobility with no AD. Pt owns 4ww. Pt reports this fall shemissed a step going out of the house in the garage. Pt reports 1 other fall approx 2 weeks ago tripping over a towel. Pt reports her son was living with her previously but is not anymore. Pt reports her family can assist as needed. Pt reports her daughter usually delivers groceries. Pt reports she pays someone to drive her when needed. Pain Pain Yes Pain Score Did not rate Location H/A Interventions Informed RN;Re-direction;Re-positioning Activity Tolerance Limiting Factors to Endurance Acute deconditioning;Fatigue;Pain;Weakness Cognition Overall Cognitive Status WFL Arousal/Alertness Appropriate responses to stimuli Attention Span Appears intact Memory Appears intact Orientation Level Oriented X4 Following Commands Follows all commands and directions without difficulty Safety Judgment Decreased awareness of need for assistance Awareness of Errors Assistance required to identify errors made Deficits Decreased awareness of deficits Problem Solving Assistance required to identify errors made Comments Patient is alert and oriented x4. Pt does appear anxious, repetitive in conversation. Pt with decreased insight into deficits and decreased safety awareness at times. Sensation Light Touch No apparent deficits (B LEs) RLE Assessment RLE Comment gross/functional strength 4/5 LLE Assessment LLE Comment gross/functional strength 4/5 Bed Mobility Rolling Min assist to left Supine to Sit Min assist to left Other (Comment) cueing for sequencing/technique and maintenance of neck/back precautions TRANSFERS Stand Pivot Transfers SBA/supervision (with a 2ww) Sit to Stand SBA/supervision Bed to Chair SBA/supervision (with a 2ww) Gait Gait Assistance Contact guard assist;SBA/supervision;With gait belt Assistive Device 2 Wheeled walker;None Distance Ambulated (ft) (50 with no AD and CGA and unsteady at times; 75 ft with 2ww and SBA with improved stability) Pattern Shuffle steps (decreased yohana) Balance Sitting - Static Independent Sitting - Dynamic Independent Standing - Static SBA;Support of both upper extremities Standing - Dynamic SBA;Support of both upper extremities;Inside base of support Other (Comment) more stable with use of 2ww; CGA with no AD Assessment Personal Factors/Comorbidities Impacting Care 3-4 personal factors/comorbidities Examination of Body Systems Moderate (3 or more Elements) Objectives of Body Systems Impaired bed mobility;Impaired transfers;Impaired ambulation;Impaired balance;Decreased LE strength;Decreased safe judgement;Decreased endurance;Pain with mobility Clinical Presentation of Patient Evolving and changing characteristics Complexity Level of Evaluation Moderate Prognosis Good PT Assess/Eval Other (Comment) Pt is a 82 year old female who presents following a fall in her garage, missed a step going down. Pt with right eyebrow / facial laceration and C5 fracture through transverse foramen. Pt recommended to wear [place] J collar and follow up outpatient [facility] Dr. Jolly. Ptis appropriate for skilled P/T interventions during hospitalization to address deficits listed above. Anticipate that pt would benefit from family supervision/assistance as necessary, to decrease fall risk and increase safety. In addition, Pt. would benefit from Home P/T at discharge to address deficits in balance, gait, transfers, safety awareness, activity tolerance and strength. Patient/Family Training Other (Comment) Pt. was educated extensively on bed mobility transitions, transfer techniques, standing balance, gait sequencing, use of walker, fall prevention, weight bearing restrictions, neck/back precautions, cryotherapy, and therapy plan/discharge recommendations. Recommendation PT Recommendation Home PT;Home with assistance;Ambulate with nurse PT Equipment Recommended Currently has DME in Place Plan PT Treatments/Interventions Gait Training;Therapeutic Exercises;Therapeutic Activities;Neuromuscular re-education;Patient/family training PT Frequency 5 times/week PT - Next Appointment 10/09/22 If this is the last treatment note,it will serve as the discharge summary Yes End of Session End of Session Safety Call light within reach;Nursing aware of session;Transfer status education;Chair alarm set/activated The Plan of Care (POC) located below is to followed until 10/26/22. At that time the POC will be re-assessed to ensure the patient is making appropriate progression in therapy. Pt. will be able to perform supine to/from sitting at EOB with Modified [place] to improve mobility. Pt. will be able to perform sit to/from standing with Modified [place] using least restrictiveassistive device to improve independence. Pt. will be able to ambulate 150 feet with Modified [place] using least restrictive assistive device to help improve strength and functional independence. Pt. will be able to maintain static standing balance 5-10 minutes with Modified [place] using least restrictive assistive device to improve independence. Pt. will be able to maintain dynamic standing balance during side-stepping L/R and marching with Modified [place] using least restrictive assistive device to improve functional mobility. Pt. will be able to ascend/descend 2 platform steps with Modified [place] using handrail(s) toincrease strength and to safely access home at D/C. Education: Primary Learners Name: Juana Klein Primary Language of learner: Burkinan Patient was educated on precautions transfers ADLs balance bed mobility equipment therapy plan gait safety energy conservation adaptive skills joint protection. Education was completed one to one verbal hands-on demonstration this date. Preference of learning new concepts one to one verbal hands-on demonstration Barriers to education this date were pain fatigue. Response to education this date demos with verbal cues needs reinforcement needs follow up needs assistance. * Dannielle Guillermo RN - 10/09/2022 9:42 AM CDT 10/09/22 0936 Referral Data Source of Information Patient;Other Family Members;Chart review Patient Information Primary Caregiver Self (Pt lives alone in [place], [place]. Pt does not drive.) Current living Situation Alone Type of Residence Private residence (1 story house.) Support System Immediate family;Friends (Daughters. Son.) Are you employed? Not Employed Recent Hospitalization Recent Hospitalization within 30 days No Legal Information Legal forms Power of Pillowcase Maker for health care Baseline ADL's Functional Status Minimum assistance Active DME Cane;Front wheel walker;Four wheel walker;Other (comment) (Straight cane available. 2 WW available. 4 WW available.) Behavior Oriented Communication Talks;Understands speaking;Understands Burkinan Current Services Being Provided Outpt therapy (Previous short term rehab placement @ [place], [place].) Other Services (Daughter assists with transportation/chores [employer]. Pt utilizes [employer].) Anticipated DC Plan Patient expects to be discharged to: Rehab facility * Madelin Vega NP - 10/09/2022 8:36 AM CDTSummary: Trauma Progress Note Images from the original note were not included. PROGRESS NOTE - TRAUMA ACUTE CARE SURGERY SERVICE MADELIN VEGA NP, 10/09/2022, 8:06 PM [facility] ACUTE CARE SURGERY SERVICE: EMERGENCY SURGERY, TRAUMA, SURGICAL CRITICAL CARE [address] [place] [id number] Name: Juana Klein Date of : 1940 Room/Bed: [facility] Date: 10/09/2022 Time: 8:06 PM ASSESSMENT: 82-year-old female who presents with Cervical spine fracture (CMS/HCC) Closed nondisplaced fracture of fifth cervical vertebra (CMS/HCC) Hyponatremia Vertebral artery dissection (CMS/HCC) PLAN: Age-indeterminate fracture of the transverse foramen of C5: Ortho Spine: Dr. Jolly Non-operative management [place] J collar at all times Ok for PT/OT to eval and treat Follow up with Dr. Jolly as an outpatient Left Vertebral Artery Dissection: [place] Vascular Surgery: Dr. Mata Non-operative management ASA 81 mg daily indefinitely to prevent stroke or progression of vertebral artery lesion Afib: On Eliquis at home which was continued Dizziness with frequent falls at home (3 this week): Will obtain Echocardiogram given report of frequent dizzy spells at home with 3 falls this week alone Prior Echo in 2018 (Dr. Hanna) demonstrated hyperdynamic LVEF 75%, severe septal hypertrophy, and moderate mitral regurgitation. General Care: Downgrade to general Ortho today Advance to general diet as tolerated Continue current pain regimen Continue PT/OT, activity as tolerated Encourage pulmonary hygiene, IS Q1H while awake, coughing and deep breathing VTE PPx: SCDs, on Eliquis (renal dosing?) GI PPx: Pepcid Bowel Regimen: Senokot BID, Glycolax daily PRN Code: Full Code Fall precautions Disposition: Pending clinical course will be stable for discharge within 1-2 days pending plan for safe discharge home. Case management on board for discharge planning, PT/OT recommending home with assistance and PT/OT home health. Spoke with daughter Marysol over the phone this evening who reports that this was her mother's 3rd fall this week and states that she frequently has dizzy spells and has to sit down or she will fall. The daughter is unsure if this has been worked up in the outpatient setting. 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 CM to discuss options with the daughter Marysol further when able. Nu is on vacation currently and the son lives in [place]. CHIEF COMPLAINT: Neck pain SUBJECTIVE: Reports mild pain/discomfort in the neck, aching in nature 2-3/10. Denies headache, visual changes, shortness of breath, chest pain, nausea, vomiting, abdominal pain, diarrhea, constipation, dysuria, and numbness or tingling in extremities. She reports falling more frequently recently as well as frequent dizzy spells at home. Significant Interval History: NAEO CURRENT MEDS: Scheduled Meds: apixaban 2.5 mg Oral BID aspirin 81 mg Oral Daily bacitracin Topical BID famotidine 20 mg Intravenous Daily Or famotidine 20 mg Oral Daily senna-docusate 1 tablet Oral BID REVIEW OF SYSTEMS: A 12 point ROS was obtained and negative except as otherwise noted in subjective OBJECTIVE: Temp: [97.3 ??F (36.3 ??C)-98.2 ??F (36.8 ??C)] 98.2 ??F (36.8 ??C) Pulse: [68-81] 79 Resp: [16-28] 18 BP: (108-140)/(51-79) 108/51 I/O totals for the last 24 hours: Intake/Output Summary (Last 24 hours) at 10/09/20222005 Last data filed at 10/09/2022 1454 Gross per 24 hour Intake 240 ml Output 1800 ml Net -1560 ml PHYSICAL EXAM: General: Patient is nontoxic in appearance and is in no acute distress. Neurological: Alert, oriented x 4. Anxious. No focal deficits appreciated. No facial asymmetry, tongue is midline, speech is clear. CN II-XII grossly intact. Bilateral grasp, plantar push, and dorsiflexion all 5/5 and equal. Eyes: PERRLA, EOMI, non-icteric Ears: Hearing intact, no otorrhea Nose: Midline without septal deviation, no epistaxis, no rhinorrhea Mouth: Mucous membranes moist Neck: Cervical collar in place. Cardiovascular: RRR/intermittent Afib, S1/S2, No audible murmur, gallop, rub, or extra heart tones Respiratory: No dyspnea or respiratory distress noted, able to speak in complete sentences, no retractions or accessory muscle use, sufficient air entry and CTAB, symmetric chest expansion, no chest wall tenderness Abdomen: Bowel sounds present in all quadrants. Abdomen is soft, non-tender, and nondistended. No guarding, rigidity, or rebound TTP. Musculoskeletal: Motor/strength intact, SILT in all extremities. Moves all extremities well. Extremities: No erythema, warmth, or tenderness in calves. Capillary refill intact and peripheral pulses palpable. Skin: Skin is race appropriate warm, and dry with sensation intact. No circumoral or peripheral cyanosis noted. No open lesions. Psychiatric: Anxious. Alert and oriented, no hallucinations, delusions, or paranoia. - Vital signs, labs, I/O, and imaging personally reviewed LABS: Recent Labs Lab 10/08/22 1742 10/09/22 0531 WBC 6.97 5.57 HGB 10.4* 11.7* HCT 30.2* 35.5* PLT 169 179 NA 130* 137 K 3.7 3.7 CL 98 107 CO2 25.6 26.2 AGAP 6.4 3.8* BUN 17 9 CR 1.14* 0.79 GLU 131* 91 CA 8.7 8.7 TP 5.5* -- ALB 3.0* -- TBIL 0.4 -- ALKP 98 -- AST 14* -- ALT 12* -- CULTURES & SENSITIVITIES: No results found for this visit on 10/08/22 (from the past 336 hour(s)). No results found for this visit on 10/08/22 (from the past 336 hour(s)). Parts of this note may have been brought forward from a previous note. I have seen and examined this patient today and changes were made to my documentation as appropriate. documented in this encounter H&P Notes * Nikko Biggs MD - 10/08/2022 8:58 PM CDT Images from the original note were not included. TRAUMA HISTORY & PHYSICAL ACUTE CARE SURGERY SERVICE Nikko Biggs MD, 10/08/2022, 8:59 PM [facility] ACUTE CARE SURGERY SERVICE: EMERGENCY SURGERY, TRAUMA, SURGICAL CRITICAL CARE [address] [place] [address] TO CONTACT PROVIDER: Advanced Practice Provider: [id number] or [id number] Trauma Surgery MD: [id number] Emergency Surgery MD: [id number] Physicians: Fish Henderson MD, FACS; Matt Valentin MD; Maury Hillman MD; Gustavo Wong MD, MPH, FACS, [facility]; Kevon Aldridge MD, FACS Advanced Practice Providers: Madelin Vega APRN; Matteo Hawkins PA-C; Juni Mcadams PA-C; Crow Calloway PA-C; Rosetta Garcia PA-C; Bethel Alicia APRN; Neida Barrera PA-C Name: Juana Klein Date of : 1940 Room/Bed: EXAM J/J Date: 10/08/2022 Time: 8:59 PM CHIEF COMPLAINT: Category 3 Trauma. Mechanism of Injury: Fall. HOSPITAL DIAGNOSES: c5 fracture PRIMARY SURVEY: Airway: Protecting airway vocalizing without difficulty cervical spine immobilized Breathing: Breath sounds present bilaterally oxygen saturation 97% normal respiratory rate Circulation: HR 71 BP 127/63 Distal pulses present throughout prompt capillary refill Intravenous access obtained skin color normal and perfused Disability: Pupil exam equal and reactive to light, Moving all four extremities, Tracking without difficulty, extra-ocular muscles intact Glascow Coma Score: Eye: E4: Opens spontaneously Verbal: V5: Orientated Motor: M6: Obeys commands Total: 15 Exposure: Patient's clothing completely removed covered with blanket log roll completed, full rangeof motion, no tenderness, soft tissues broadly normal, no step-offs noted on thoracic or lumbar spine SECONDARY SURVEY: HISTORY OF PRESENT ILLNESS: Juana Klein is a 82-year-old female brought in by EMS, flight and was in cervical collar, but not boarded on presentation. The patient was involved in a fall down stairs. Per report, Juana Klein was walking and missed her single stair causing her to fall. This is her second fall in the last week. She denies LOC. She takes Eliquis for atrial fibrillation. She was initally seen at [facility] in [place] where her initial workup was completed. She was transferred here for higher level of care after identifying a C5 fracture. The patient described painas non-existent. PAST MEDICAL HISTORY: Past Medical History: Diagnosis Date Anxiety Atrial fibrillation (CMS/HCC) Coronary artery disease Depression GERD (gastroesophageal reflux disease) Migraine Mitral valve disorder PAST SURGICAL HISTORY: Past Surgical History: Procedure Laterality Date APPENDECTOMY HYSTERECTOMY TOTAL KNEE ARTHROPLASTY ALLERGIES: No Known Allergies HOME MEDICATIONS: Prior to Admission medications Medication Sig Start Date End Date Taking? Authorizing Provider acetaminophen 325 MG tablet 12/24/18 [facility] amiodarone 200 MG tablet TAKE EVERY THIRD DAY [facility] ARIPiprazole 15 MG tablet 08/07/20 [facility] calcium carb-cholecalciferol (CALTRATE 600+D) 600-20 MG-MCG tablet Take by mouth daily. [facility] D3 HIGH POTENCY 125 MCG (5000 UT) Cap Take 1 capsule by mouth daily. 07/24/20 [facility] docusate sodium 100 MG capsule 10/21/18 [facility] DULoxetine (CYMBALTA) 60 MG capsule Take 1 capsule (60 mg total) by mouth daily. [facility] ELIQUIS 2.5 MG tablet 04/07/19 [facility] escitalopram 20 MG tablet Take 2 tablets (40 mg total) by mouth daily. [facility] ferrous sulfate, 65 mg elemental, 325 (65 FE) MG tablet Take by mouth 2 (two) times daily. 11/29/17 [facility] gabapentin 100 MG capsule Take 1 capsule (100 mg total) by mouth 3 (three) times daily. 10/15/18 Lourdes Foster MD GOODSENSE ASPIRIN ADULT LOW ST 81 MG chewable tablet 01/11/19 [facility] lorazepam (ATIVAN) 0.5 MG tablet Take 1 tablet (0.5 mg total) by mouth 2 (two) times daily. 10/15/18Lourdes Foster MD magnesium oxide 400 (240 Mg) MG tablet 12/23/18 [facility] MAGNESIUM-OXIDE 400 (241.3 Mg) MG tablet 04/07/19 [facility] metoprolol succinate 50 MG 24 hr tablet Take 0.5 tablets (25 mg total) by mouth daily. 01/21/18 Go Hanna MD metoprolol succinate ER 25 MG 24 hr tablet 05/08/19 [facility] omeprazole 20 MG capsule 05/02/19 [facility] oxybutynin 5 MG tablet 05/01/19 [facility] Polyethylene Glycol 3350 (PEG 3350) Powder 12/24/18 [facility] sucralfate 1 G tablet 04/28/19 [facility] SUMAtriptan (IMITREX) 50 MG tablet Take 1 tablet (50 mg total) by mouth daily as needed for Migraine. 12/09/17 [facility] traMADol 50 MG tablet 05/23/19 [facility] SOCIAL HISTORY: Social History Tobacco Use Smoking status: Never Smokeless tobacco: Never Substance Use Topics Alcohol use: No FAMILY HISTORY: Family history was reviewed as listed below. Family History Problem Relation Name Age of Onset Kidney Disease Mother Heart Disease Father Breast Cancer Maternal Aunt Breast Cancer Other COUSIN REVIEW OF SYSTEMS: Pertinent items are noted in HPI. PHYSICAL EXAMINATION: ED Triage Vitals Enc Vitals Group BP Pulse Resp Temp Temp src SpO2 Weight Height Head Circumference Peak Flow Pain Score Pain Loc Pain Edu? Excl. in GC? General appearance: alert and oriented and oriented to person, place, and time Neurological: Grossly normal neurological examination, appropriate, and conversant, Alert and oriented, Following commands, Pleasant without complaints Scalp: Laceration(s) over right, forehead scalp repaired at OSH Face: Hematoma over right, eyelid face Eyes: Tracking without difficulty, extra-ocular muscles intact, Gross eye exam normal Ears: Hearing intact, not deaf, No deformity noted in bilateral ears Nose: Nasal septum midline, no rhinorrhea or epistaxis Mouth: Mucous membranes moist, no signficant deformity or malocclusion Neck: Trachea midline, Symmetric, Cervical collar in place, Cervical collar in place, cervical spine not cleared Chest: No dyspnea or respiratory distress noted, sufficient air movement, broadly clear, Clear, no wheezes, rales or rhonchi, symmetric air entry Heart: normal rate, atrial fibrillation Abdomen: soft, nontender, nondistended Pelvis: stable pelvis, no signs of structural deformity and Rectal: no lesions or tenderness noted, grossly normal genitourinary exam Back exam: full range of motion, no tenderness, soft tissues broadly normal, no step-offs noted on thoracic or lumbar spine Musculoskeletal: Motor and sensory grossly normal bilaterally, multiple ecchymosis of right buttockleft knee and left wrist. Skin: normal coloration and turgor, no suspicious skin lesions noted Psychiatric: Mood and affect appropriate, alert, and oriented LABORATORY RESULTS: Recent Labs Lab 10/08/22 1742 WBC 6.97 HGB 10.4* HCT 30.2* PLT 169 NA 130* K 3.7 CL 98 CO2 25.6 AGAP 6.4 BUN 17 CR 1.14* GLU 131* CA 8.7 TP 5.5* ALB 3.0* TBIL 0.4 ALKP 98 AST 14* ALT 12* No results found for: PH, PCO2, PO2, [id number], BICARBWB, BASEDEFICIT, BASEEXCESS No results for input(s): ABORH in the last 168 hours. No results for input(s): CKTOTAL in the last 168 hours. IMAGING: Radiology Results (Last 30 days) 10/08/221802 CT HEAD WO CON Final result Impression: IMPRESSION: 1. No acute intracranial abnormality. 2. No acute abnormality of the facial bones. 3. Chronic intracranial senescent changes. Referred By: Interpreted By: Rivera Coreas MD, 10/08/2022 6:13 PM 10/08/[address] CERV SPINE WO CON Final result Impression: IMPRESSION: 1. Interval appearance of an age-indeterminate fracture of the left transverse foramen of C5. Recommend further evaluation with CTA. 2. No CT evidence of acute cervical subluxation. 3. Chronic degenerative changes of the cervical spine, as above. Referred By: Interpreted By: Rivera Coreas MD, 10/08/2022 6:13 PM 10/08/[address] FACIAL BONES WO CON Final result Impression: IMPRESSION: 1. No acute intracranial abnormality. 2. No acute abnormality of the facial bones. 3. Chronic intracranial senescent changes. Referred By: Interpreted By: Rivera Coreas MD, 10/08/2022 6:13 PM INJURY SUMMARY: Head: None Cervical Spine: c5 fracture through transverse foramen Thoracic/Lumbar Spine: None Chest: None Abdomen/Pelvis: None Extremities: bruising over left knee and right wrist Skin/Soft tissue: multiple bruises of variosu stages of healing , cervical spine could not be cleared and remains in place, tetanus coverage was administered ASSESSMENT: Juana Klein is a 82-year-old female who presented as a trauma involved in a Fall. PLAN: Patient Disposition: IMCU Begin diet and advance as tolerated NPO after midnight with maintenance IV fluids Check X-ray Bowel regimen Incentive spirometry OOB, ambulate with assistance as tolerated Sequential compression device to lower extremities Dressing changes as needed PT and OT GI prophylactic acid reduction therapy Code: Prior Consultations: Orthopaedic Surgery: [facility] -> outpatient followup Critical Care: The patient was managed without critical care intervention. documented in this encounter Consult Notes * Sin Nielson MD - 10/09/2022 12:19 PM CDTAssociated Order(s): IP CONSULT TO VASCULAR SURGERY REASON FOR CONSULTATION: Vertebral artery dissection HPI: Patient is a 82-year-old female with history of atrial fibrillation on Eliquis, mitral regurgitation and hyperlipidemia who presented as a trauma on 10/08 following a fall. The patient states she was walking down steps to go to her garage missed the last step and fell forward on her face. She denies loss of consciousness. The patient was taken to an outside hospital where CT of the cervical spine was notable for age-indeterminate fracture of the transverse foramen of C5 and the patient was transferred to [facility] for a higher level of care. Today the patient denies headache, numbness, tingling, vision changes or speech changes. PMH: Past Medical History: Diagnosis Date Anxiety Atrial fibrillation (CMS/HCC) Coronary artery disease Depression GERD (gastroesophageal reflux disease) Migraine Mitral valve disorder PSH: Past Surgical History: Procedure Laterality Date APPENDECTOMY HYSTERECTOMY TOTAL KNEE ARTHROPLASTY Social History: Social History Socioeconomic History Marital status: Spouse name: Not on file Number of children: Not on file Years of education: Not on file Highest education level: Not on file Occupational History Not on file Tobacco Use Smoking status: Never Smokeless tobacco: Never Substance and Sexual Activity Alcohol use: No Drug use: No Sexual activity: Not on file Other Topics Concern Not on file Social History Narrative Not on file Social Determinants of Health Financial Resource Strain: Low Risk Difficulty of Paying Living Expenses: Not hard at all Food Insecurity: No Food Insecurity Worried About Running Out of Food in the Last Year: Never true Ran Out of Food in the Last Year: Never true Transportation Needs: No Transportation Needs Lack of Transportation (Medical): No Lack of Transportation (Non-Medical): No Physical Activity: Not on file Stress: Not on file Social Connections: Not on file Intimate Partner Violence: Not At Risk Fear of Current or Ex-Partner: No Emotionally Abused: No Physically Abused: No Sexually Abused: No Housing Stability: Low Risk Unable to Pay for Housing in the Last Year: No Number of Places Lived in the Last Year: 1 Unstable Housing in the Last Year: No Family History: Family History Problem Relation Name Age of Onset Kidney Disease Mother Heart Disease Father Breast Cancer Maternal Aunt Breast Cancer Other COUSIN Medications: No current outpatient medications on file. Allergies: No Known Allergies Review of Systems: GEN: No fevers, chills. HEENT: No scleral icterus. No change in vision or hearing. No dysphagia CV: No chest pain or palpitations LUNGS: No dyspnea or cough GI: No abdominal pain, nausea, or vomiting. No melena or hematochezia. : No dysuria or frequency ENDO: No heat or cold intolerance HEME: No easy bruising or bleeding. NEURO: No new numbness, tingling. No new headaches. MSK: Should pain PSYCH: No worsening anxiety or depression Physical Exam: Vitals: 10/09/22 1204 BP: (!) 140/63 Pulse: 80 Resp: Temp: SpO2: 98% GEN: Adult lying in hospital bed. No acute distress. MENTAL STATUS: Alert, oriented x3. Cooperative. HEAD: Right periorbital ecchymosis, Right forehead bruising EYES: No scleral icterus, conjunctiva clear. PERRL. NOSE: No bleeding or nasal discharge noted THROAT: Moist mucous membranes, no pharyngeal erythema, no sublingual ic NECK: Supple, trachea midline. No JVD noted. CV: Regular rate, no tachycardia. Adequate peripheral perfusion. RESP: Airway patent. No increased respiratory effort. Chest rise equal bilaterally. ABD: Soft, nontender, nondistended, no tympany to percussion. EXT: No cyanosis or edema MSK: No joint swelling or erythema noted. NEURO: Cranial nerves II-XII intact without any focal deficits, Moves all 4 extremities. SKIN: No rash or skin lesion noted. PSYCH: Appropriate mood and affect. Diagnostic data: BMP: Lab Results Component Value Date NA 137 10/09/2022 K 3.7 10/09/2022 CL 107 10/09/2022 CO2 26.2 10/09/2022 BUN 9 10/09/2022 CR 0.79 10/09/2022 GLU 91 10/09/2022 CBC: Lab Results Component Value Date HGB 11.7 (L) 10/09/2022 HCT 35.5 (L) 10/09/2022 WBC 5.57 10/09/2022 PLT 179 10/09/2022 Assessment: Patient is a 82-year-old female who presented as a trauma with a C5 fracture following a fall. 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 The patient is asymptomatic neurologically intact. Recommend treatment with Asprin 81 mg to prevent CVA or progression of vertebral artery lesion. Plan: Recommend aspirin 81 mg indefinitely ? Staff: Dr. Mata Cosigned by Audra Mata MD at 10/13/2022 7:26 PM CDT documented in this encounter Nursing Notes * Leland Christianson RN - 10/11/2022 3:36 AM CDT Patient upper extremities and lower extremities are cold to touch. [place] and sheet offered but patient refused. Patient states I am feeling hot and I don't want any covers on me.Patient seems confused and repetitive in her speech. Patient took off her cata[place] Collar. Industrial Chemistry Teacher attempted to put the catawba collar back but patient is adamant not wanting the collar back on. Patient states I will fight you if you put that thing back on.Physician was notified about patient changes in behavior. * Michelle Brooks RN - 10/09/2022 5:38 PM CDTSummary: admission med rec review RN called patient's pharmacy, they stated they would send over the pt medication list, never received. Upon return phone to pharmacy, unable to contact. Pt unable to state what she takes exactly, butknows I take 14.5 pills in the morning. Will continue to attempt to update the med list. documented in this encounter ED Notes * Ramila Edmondson - 10/09/2022 6:59 AM CDT [facility]U 650 Ready * Michelle Calixto DO - 10/08/2022 8:59 PM CDT ED NOTE Chief Complaint Chief Complaint Patient presents with Trauma History of Present Illness Patient is a level 3 trauma transfer. She apparently had a ground-level fall in her garage from tripping and sustained a facial laceration. She was seen at the [place] [facility] where the laceration was repaired and she was noted to have a possible C5 fracture on CT. She arrives now with c-collar in place. Trauma surgeon has already evaluated the patient in the emergency department. Medical History ALLERGIES: Review of patient's allergies indicates: No Known Allergies MEDICATIONS: Prior to Admission medications Medication Sig Start Date End Date Taking? Authorizing Provider acetaminophen 325 MG tablet 12/24/18 [facility] amiodarone 200 MG tablet TAKE EVERY THIRD DAY [facility] ARIPiprazole 15 MG tablet 08/07/20 [facility] calcium carb-cholecalciferol (CALTRATE 600+D) 600-20 MG-MCG tablet Take by mouth daily. [facility] D3 HIGH POTENCY 125 MCG (5000 UT) Cap Take 1 capsule by mouth daily. 07/24/20 [facility] docusate sodium 100 MG capsule 10/21/18 [facility] DULoxetine (CYMBALTA) 60 MG capsule Take 1 capsule (60 mg total) by mouth daily. [facility] ELIQUIS 2.5 MG tablet 04/07/19 [facility] escitalopram 20 MG tablet Take 2 tablets (40 mg total) by mouth daily. [facility] ferrous sulfate, 65 mg elemental, 325 (65 FE) MG tablet Take by mouth 2 (two) times daily. 11/29/17 [facility] gabapentin 100 MG capsule Take 1 capsule (100 mg total) by mouth 3 (three) times daily. 10/15/18 Lourdes Foster MD GOODSENSE ASPIRIN ADULT LOW ST 81 MG chewable tablet 01/11/19 [facility] lorazepam (ATIVAN) 0.5 MG tablet Take 1 tablet (0.5 mg total) by mouth 2 (two) times daily. 10/15/18Lourdes Foster MD magnesium oxide 400 (240 Mg) MG tablet 12/23/18 [facility] MAGNESIUM-OXIDE 400 (241.3 Mg) MG tablet 04/07/19 [facility] metoprolol succinate 50 MG 24 hr tablet Take 0.5 tablets (25 mg total) by mouth daily. 01/21/18 Go Hanna MD metoprolol succinate ER 25 MG 24 hr tablet 05/08/19 [facility] omeprazole 20 MG capsule 05/02/19 [facility] oxybutynin 5 MG tablet 05/01/19 [facility] Polyethylene Glycol 3350 (PEG 3350) Powder 12/24/18 [facility] sucralfate 1 G tablet 04/28/19 [facility] SUMAtriptan (IMITREX) 50 MG tablet Take 1 tablet (50 mg total) by mouth daily as needed for Migraine. 12/09/17 [facility] traMADol 50 MG tablet 05/23/19 [facility] PAST MEDICAL HISTORY: Past Medical History: Diagnosis Date Anxiety Atrial fibrillation (CMS/HCC) Coronary artery disease Depression GERD (gastroesophageal reflux disease) Migraine Mitral valve disorder PAST SURGICAL HISTORY: Past Surgical History: Procedure Laterality Date APPENDECTOMY HYSTERECTOMY TOTAL KNEE ARTHROPLASTY FAMILY HISTORY: Family History Problem Relation Name Age of Onset Kidney Disease Mother Heart Disease Father Breast Cancer Maternal Aunt Breast Cancer Other COUSIN SOCIAL HISTORY: Social History Tobacco Use Smoking status: Never Smokeless tobacco: Never Substance Use Topics Alcohol use: No Drug use: No Review of Systems Review of Systems Patient complains of some facial pain but denying other pain Physical Exam Filed Vitals: 10/08/22 2046 10/08/22 2105 BP: 127/63 127/63 Pulse: 71 71 Resp: 16 16 Temp: 97.7 ??F (36.5 ??C) 97.7 ??F (36.5 ??C) TempSrc: Oral SpO2: 97% 97% Weight: 54.4 kg (119 lb 14.9 oz) Height: 5' 2 (1.575 m) Physical Exam Vitals and nursing note reviewed. Constitutional: General: She is not in acute distress. Appearance: She is not ill-appearing, toxic-appearing or diaphoretic. HENT: Head: Normocephalic. Comments: Patient has a sutured laceration on the right forehead covered in Vaseline gauze. There is dried blood mainly on the right side of the face and the scalp. Right Ear: External ear normal. Left Ear: External ear normal. Mouth/Throat: Mouth: Mucous membranes are moist. Pharynx: Oropharynx is clear. Eyes: Extraocular Movements: Extraocular movements intact. Conjunctiva/sclera: Conjunctivae normal. Pupils: Pupils are equal, round, and reactive to light. Comments: Right periorbital bruising Neck: Comments: In c-collar. Trachea is midline and freely movable Cardiovascular: Rate and Rhythm: Normal rate and regular rhythm. Pulses: Normal pulses. Heart sounds: Normal heart sounds. Pulmonary: Effort: Pulmonary effort is normal. Breath sounds: Normal breath sounds. Abdominal: Palpations: Abdomen is soft. Tenderness: There is no abdominal tenderness. Musculoskeletal: Comments: Moves all extremities Skin: General: Skin is warm and dry. Capillary Refill: Capillary refill takes less than 2 seconds. Comments: Scattered old bruises noted on extremities Neurological: Mental Status: She is alert. Psychiatric: Mood and Affect: Mood normal. Behavior: Behavior normal. Diagnostic Studies / Procedures ELECTROCARDIOGRAMS: No results found for this visit on 10/08/22. LABORATORY STUDIES: No results found for this visit on 10/08/22. IMAGING STUDIES CTA NECK (Results Pending) XR KNEE LT 3V (Results Pending) XR WRIST LT MIN 3V (Results Pending) ED Course / Medical Decision Making [facility] ED Course as of 10/08/222146 Julee Oct 08, 2022 210 Is a level 3 trauma transfer after sustaining a fall at home. There is a questionable C5 fracture and her facial laceration has been repaired. She has no immediate airway issues and no pain needs. Care is assumed by trauma team [EM] ED Course User Index [EM] Michelle Calixto, DO Medications bacitracin ointment (has no administration in time range) senna-docusate (SENOKOT-S) 8.6-50 MG tablet 1 tablet (has no administration in time range) enoxaparin (LOVENOX) 30 MG/0.3ML syringe 30 mg (has no administration in time range) ondansetron (ZOFRAN) injection 4 mg (has no administration in time range) famotidine (PF) (PEPCID) injection 20 mg (has no administration in time range) Or famotidine (PEPCID) tablet 20 mg (has no administration in time range) polyethylene glycol (GLYCOLAX) packet 17 g (has no administration in time range) acetaminophen (TYLENOL) tablet 650 mg (has no administration in time range) Or acetaminophen (TYLENOL) suppository 650 mg (has no administration in time range) Or acetaminophen (TYLENOL) suspension 650 mg (has no administration in time range) HYDROcodone-acetaminophen (NORCO) 5-325 MG tablet 1 tablet (has no administration in time range) morphine injection 2 mg (has no administration in time range) apixaban (ELIQUIS) tablet 2.5 mg (has no administration in time range) Tdap (BOOSTRIX) injection 0.5 mL (0.5 mLs Intramuscular Given 10/08/222115) Clinical Impression Closed cervical spine fracture (CMS/HCC) (Primary) Facial laceration Fall Current Discharge Medication List Follow Up: No follow-up provider specified. Disposition: Admit MICHELLE CALIXTO DO 10/08/2022 Michelle Calixto DO 10/08/222146 * Rohan Ernandez, ANTONIETTA - 10/08/2022 8:48 PM CDT Bed: J Expected date: Expected time: Means of arrival: Comments: ARCH 2 LEVEL 3 TRAUMA 82F FALL * Vero Bartlett RN - 10/08/2022 8:46 PM CDT See trauma chart. documented in this encounter Plan of Treatment Not on file documented as of this encounter Goals Goal Patient Goal Type Associated Problems Recent Progress Patient-Stated? Author Family - family caregiver with be involved in care transitions and discharge planning Lifestyle No Dannielle Guillermo RN documented as of this encounter Procedures Procedure Name Priority Date/Time Associated Diagnosis Comments CORONAVIRUS (COVID-19) ANTIGEN Nurse Collected Priority 10/13/2022 10:20 AM CDT USE ECHOCARDIOGRAM Routine 10/12/2022 1: 15 PM CDT BASIC METABOLIC PANEL Routine 10/12/2022 3:23 AM CDT CBC W/DIFF AUTOMATED Routine 10/12/2022 3:23 AM CDT PHOSPHORUS, INORGANIC PHOSPHATE Routine 10/12/2022 3:23 AM CDT MAGNESIUM Routine 10/12/2022 3:23 AM CDT BASIC METABOLIC PANEL STAT 10/09/2022 5:31 AM CDT CBC W/DIFF AUTOMATED STAT 10/09/2022 5:31 AM CDT CTA NECK STAT 10/08/2022 10:17 PM CDT XR WRIST LT MIN 3V STAT 10/08/2022 9: 42 PM CDT XR KNEE LT 3V STAT 10/08/2022 9:42 PM CDT documented in this encounter Results * CORONAVIRUS (COVID-19) ANTIGEN (10/13/2022 10:20 AM CDT) CORONAVIRUS ANTIGEN IA NEGATIVE NEGATIVE 10/13/2022 12:01 PM CDT [facility] Comment: NEGATIVE RESULTS SHOULD BE TREATED PRESUMPTIVE AND CONFIRMED WITH A MOLECULAR ASSAY IF NECESSARY FOR PATIENT MANAGEMENT. NEGATIVE RESULTS DO NOT RULE OUT COVID 19 AND SHOULD NOT BE USED THE SOLE BASIS FOR TREATMENT OR PATIENT MANAGEMENT DECISIONS, INCLUDING INFECTION CONTROL DECISIONS. NEGATIVE RESULTS SHOULD BE CONSIDERED IN THE CONTEXT OF A PATIENT'S RECENT EXPOSURES, HISTORY AND THE PRESENCE OF CLINICAL SIGNS AND SYMPTOMS CONSISTENT WITH COVID 19. THIS TEST HAS BEEN AUTHORIZED BY THE FDA UNDER AN EMERGENCY USE AUTHORIZATION (EUA) FOR USE BY AUTHORIZED LABORATORIES. SPECIMEN TYPE NASAL 10/13/2022 10:40 AM CDT [facility] NASAL NASAL STRUCTURE / Unknown 10/13/2022 10:20 AM CDT Matt Valentin MD MICROBIOLOGY - GENERAL ISIDRO OBRIEN Final Result [facility] [address] [place] [address], [id number] * USE ECHOCARDIOGRAM (10/12/2022 1:15 PM CDT) Anatomical Region Laterality Modality Cardiac Echocardiogram 10/12/2022 12:5 1 PM CDT Narrative 10/13/2022 7:07 AM CDT ?Echocardiography Report Pat.Name: ??JUANA KLEIN ? Pat.ID: ?[id number] ? St.Date: ?? 10/12/2022 ? Refer.MD: ??[id number] FAN Corrigan ? EWDPROV ?EWDPROV Exam Time: 12:51:00 PM ? Study Type:ECHO WITH CARDIAC DOPPLER COMP Height: ?62.2 in ? Weight: ?119 lb ? BSA: ? 1.54 m2 ?Age: ??1940,82Y ? Sex: ? F ? BP: ?141/68 ? HR: ?60 bpm ?Sonogrphr: Joshua Eric RDCS ? Pat. Stat.:Inpatient ? Room: ?962 ? CPT - 4: ?46883 ? Reason for Study:Dizziness ? Procedures: 2D, M-mode, Doppler, Color Flow, Portable Race: ?W ? ++++++++++++++++++++++++++++++++++++ SUMMARY: ++++++++++++++++++++++++++++++++++++ The left ventricular cavity is small. ??Severe asymmetrical hypertrophy of the interventricular septum measuring 2.4 cm. ??The calculated ejection fraction is 74%. The peak velocity through the outflow tract measures 2.8m/sec with a mean gradient of 17mmHg at rest and with Valsalva. This is consistent with hypertrophic obstructive cardiomyopathy. The right ventricle size is normal. The right ventricular function is normal. The peak pulmonary artery systolic pressure is estimated to be approximately 20 - 25 mmHg. Inferior vena cava is not dilated and shows >50% collapse with respiration consistent with normal right atrial pressure. Moderately calcified posterior mitral annulus. No evidence of hemodynamically significant valvular stenosis or regurgitation. ++++++++++++++++++++++++++++++++++++ FINDINGS: ++++++++++++++++++++++++++++++++++++ LV: ? The left ventricular cavity is small. The left ventricular ?systolic function is hyperdynamic. The calculated ejection ?fraction is 74%. Severe asymmetrical hypertrophy of the ?interventricular septum measuring 2.4 cm. Left ventricular ?diastolic function is abnormal LVOT: ? The peak velocity through the outflow tract measures ?2.8m/sec with a mean gradient of 17mmHg at rest and with ?Valsalva RV: ? The right ventricle size is normal. The right ventricular ?function is normal. LA: ? The left atrial volume is mildly increased RA: ? The right atrial size is normal. JESSICA: ? No evidence of pericardial effusion. AO: ? The proximal ascending aorta measures 3cm. PA: ? The peak pulmonary artery systolic pressure is estimated to ?be approximately 20 - 25 mmHg. Estimated right atrial ?pressure of 3 mmHg. SVn: ?Inferior vena cava is not dilated and shows >50% collapse ?with respiration consistent with normal right atrial ?pressure. AV: ? The aortic valve is trileaflet. No evidence of aortic valve ?stenosis. No evidence of aortic valve regurgitation. Mild ?thickening of aortic valve leaflets. MV: ? Mild mitral regurgitation with a posteriorly directed jet. ?No evidence of mitral stenosis. Moderately calcified ?posterior mitral annulus. PV: ? Pulmonic valve not well visualized. TV: ? A trace of tricuspid regurgitation. No evidence of tricuspid ?valve stenosis. ++++++++++++++++++++++++++++++++++++ MEASUREMENTS: ++++++++++++++++++++++++++++++++++++ ?DOPPLER LVOT ?? LVOTpkPG ? 5 mmHg ?LVOTmnPG ? 3 mmHg LVOTpkVel ?112 cm/s (70-110)* LVOT SV ? 64 ml ?? LVOT TVI ?20.5 cm ? AV Forward Flow AV TVI ?21.8 cm ?AV pkPG ?7 mmHg AV pkVel ? 134 cm/s (100-170) Area (TVI) ?2.95 cm2 ??(3-5)* AV mnVel ?95.5 cm/s ?Area (Sly) ?2.62 cm2 ??(3-5)* AV mnPG ?4 mmHg ? MV Forward Flow MV DeTm ?345 msec ?MV E/A ? 0.9 ? MV mnPG ?2 mmHg ?MV pkE ?81 cm/s (60-130) MV pkPG ?4 mmHg ?MV pkA ?93.1 cm/s Lat E' ?? Lat e ? 6.25 cm/s ? Lat E/E' ?? Lat E/e ? 13 ? Med E' ?? Med e ? 3.94 cm/s ? Med E/E' ?? Med E/e ? 20.6 ? Aortic Valve ?? Aortic Valve Ar ??1.92 ?Aortic Valve Ve ??0.84 ? AV DI ?? Value ?0.9 ? CORONA (VTI) Index ?? Value ? 1.92 ? LV Mass 2D ?? Value ?248 g ? LV Mass [id number] ?? Value ?161 g/m2 ? RA Volume ?? Atrial Jimenez ?? 4.35 cm ? Atrial Jimenez ?? 10.8 cm2 Atrial Jimenez ?? 21.4 ml ?2D Left Ventricle ?? LVIDd ? 3.75 cm ?? (3.6-5.2) LV EF(Bi-Plane) ??73.8 % ?(55-75) LVIDs ? 2.38 cm ?? (2.3-3.9) LVPW ?? LVPWd ?0.941 cm ? Ventricular Septum ?? IVSd ?2.36 cm ? Left Atrium ?? LA a-p ? 3.5 cm ?? (2.8-3.4)* Aorta ?? Ao Asc ? 3 cm ?? (zsc 3.2)* LVOT ?? LVOT ? 2 cm ? Ratios ?? IVS Right Ventricle ?? Right Ventricle ??3.04 cm ? Right Ventricul ??3.85 cm2 Right Ventricul ??8.52 cm2 ?Right Ventricul ??54.8 % ?MMODE Aorta ?? Ao Rt ?2.7 cm ?? (2-3.7) ?? <Electronic Signature> 10/13/2022 07:07 AM Taylor Titus M.D. Procedure Note Taylor Titus MD - 10/13/2022 Echocardiography Report Pat.Name: JUANA KLEIN Pat.ID: [id number] .Date: 10/12/2022 Refer.: [id number] FAN Corrigan EWDPROV EWDPROV Exam Time: 12:51:00 PM Study Type:ECHO WITH CARDIAC DOPPLER COMP Height: 62.2 in Weight: 119 lb BSA: 1.54 m2 Age: 11 1940,82Y Sex: F BP: 141/68 HR: 60 bpm Sonogrphr: Joshua Eric RDCS Pat. Stat.:Inpatient Room: 962 CPT - 4: 08542 Reason for Study:Dizziness Procedures: 2D, M-mode, Doppler, Color Flow, Portable Race: W ++++++++++++++++++++++++++++++++++++ SUMMARY: ++++++++++++++++++++++++++++++++++++ The left ventricular cavity is small. Severe asymmetrical hypertrophy of the interventricular septum measuring 2.4 cm. The calculated ejection fraction is 74%. The peak velocity through the outflow tract measures 2.8m/sec with a mean gradient of 17mmHg at rest and with Valsalva. This is consistent with hypertrophic obstructive cardiomyopathy. The right ventricle size is normal. The right ventricular function is normal. The peak pulmonary artery systolic pressure is estimated to be approximately 20 - 25 mmHg. Inferior vena cava is not dilated and shows >50% collapse with respiration consistent with normal right atrial pressure. Moderately calcified posterior mitral annulus. No evidence of hemodynamically significant valvular stenosis or regurgitation. ++++++++++++++++++++++++++++++++++++ FINDINGS: ++++++++++++++++++++++++++++++++++++ LV: The left ventricular cavity is small. The left ventricular systolic function is hyperdynamic. The calculated ejection fraction is 74%. Severe asymmetrical hypertrophy of the interventricular septum measuring 2.4 cm. Left ventricular diastolic function is abnormal LVOT: The peak velocity through the outflow tract measures 2.8m/sec with a mean gradient of 17mmHg at rest and with Valsalva RV: The right ventricle size is normal. The right ventricular function is normal. LA: The left atrial volume is mildly increased RA: The right atrial size is normal. JESSICA: No evidence of pericardial effusion. AO: The proximal ascending aorta measures 3cm. PA: The peak pulmonary artery systolic pressure is estimated to be approximately 20 - 25 mmHg. Estimated right atrial pressure of 3 mmHg. SVn: Inferior vena cava is not dilated and shows >50% collapse with respiration consistent with normal right atrial pressure. AV: The aortic valve is trileaflet. No evidence of aortic valve stenosis. No evidence of aortic valve regurgitation. Mild thickening of aortic valve leaflets. MV: Mild mitral regurgitation with a posteriorly directed jet. No evidence of mitral stenosis. Moderately calcified posterior mitral annulus. PV: Pulmonic valve not well visualized. TV: A trace of tricuspid regurgitation. No evidence of tricuspid valve stenosis. ++++++++++++++++++++++++++++++++++++ MEASUREMENTS: ++++++++++++++++++++++++++++++++++++ DOPPLER LVOT LVOTpkPG 5 mmHg LVOTmnPG 3 mmHg LVOTpkVel 112 cm/s (70-110)* LVOT SV 64 ml LVOT TVI 20.5 cm AV Forward Flow AV TVI 21.8 cm AV pkPG 7 mmHg AV pkVel 134 cm/s (100-170) Area (TVI) 2.95 cm2 (3-5)* AV mnVel 95.5 cm/s Area (Sly) 2.62 cm2 (3-5)* AV mnPG 4 mmHg MV Forward Flow MV DeTm 345 msec MV E/A 0.9 MV mnPG 2 mmHg MV pkE 81 cm/s (60-130) MV pkPG 4 mmHg MV pkA 93.1 cm/s Lat E' Lat e 6.25 cm/s Lat E/E' Lat E/e 13 Med E' Med e 3.94 cm/s Med E/E' Med E/e 20.6 Aortic Valve Aortic Valve Ar 1.92 Aortic Valve Ve 0.84 AV DI Value 0.9 CORONA (VTI) Index Value 1.92 LV Mass 2D Value 248 g LV Mass [id number] Value 161 g/m2 RA Volume Atrial Jimenez 4.35 cm Atrial Jimenez 10.8 cm2 Atrial Jimenez 21.4 ml 2D Left Ventricle LVIDd 3.75 cm (3.6-5.2) LV EF(Bi-Plane) 73.8 % (55-75) LVIDs 2.38 cm (2.3-3.9) LVPW LVPWd 0.941 cm Ventricular Septum IVSd 2.36 cm Left Atrium LA a-p 3.5 cm (2.8-3.4)* Aorta Ao Asc 3 cm (zsc 3.2)* LVOT LVOT 2 cm Ratios IVS Right Ventricle Right Ventricle 3.04 cm Right Ventricul 3.85 cm2 Right Ventricul 8.52 cm2 Right Ventricul 54.8 % MMODE Aorta Ao Rt 2.7 cm (2-3.7) <Electronic Signature> 10/13/2022 07:07 AM Taylor Titus M.D. Madelin Clemons Ivana HERBAR[employer] WORKER ECHO Final Result * PHOSPHORUS, INORGANIC PHOSPHATE (10/12/2022 3:23 AM CDT) PHOSPHORUS 3.1 2.5 - 4.9 MG/DL 10/12/2022 4:37 AM CDT [facility] 10/12/2022 3:23 AM CDT [facility] Final Resul t Performing Organization Address [facility] de Phone Number [facility] [address] [place] [address], [id number] * MAGNESIUM (10/12/2022 3:23 AM CDT) MAGNESIUM 2.0 1.6 - 2.6 MG/DL 10/12/2022 4:37 AM CDT [facility] 10/12/2022 3:23 AM CDT [facility] Final Resul t Performing Organization Address [facility] de Phone Number [facility] [address] [place] [address], [id number] * (ABNORMAL) BASIC METABOLIC PANEL (10/12/2022 3:23 AM CDT) SODIUM S/P/B 132(L) 136 - 145 MMOL/L 10/12/2022 4:37 AM CDT [facility] POTASSIUM S/P/B 3.9 3.5 - 5.1 MMOL/L 10/12/2022 4:37 AM CDT [facility] CHLORIDE S/P/B 99 98 - 107 MMOL/L 10/12/2022 4:37 AM T [facility] CO2 27.7 21.0 - 32.0 MMOL/L 10/12/2022 4:37 AM T [facility] GLUCOSE 99 74 - 106 MG/DL 10/12/2022 4:37 AM T [facility] BUN 19(H) 7 - 18 MG/DL 10/12/2022 4:37 AM T [facility] CREATININE S/P/B 0.73 0.55 - 1.02 MG/DL 10/12/2022 4:37 AM T [facility] CALCIUM S/P/B 9.2 8.5 - 10.1 MG/DL 10/12/2022 4:37 AM T [facility] ANION GAP 5.3 5.0 - 15.0 MMOL/L 10/12/2022 4:37 AM T [facility] OSMOLALITY (CALC) 276 MOSM/KG 023 4:37 AM [facility] Comment:REFERENCE RANGE NOT ESTABLISHED GFR ESTIMATE 83(L) >90 ML/MIN/1. 73 M2 10/12/2022 4:37 AM T [facility] GFR NOTES GFR REFERENCE S: 10/12/2022 4:37 AM [facility] Comment: THE ESTIMATED GFR IS CALCULATED USING THE 2020 CKD-EPI EQUATION. THE FOLLOWING CATEGORIES FOR GRADING RENAL FUNCTION ARE RECOMMENDED BY THE [employer]NATIONAL [employer] OF NEPHROLOGY (KDIGO 2012 CLINICAL PRACTICE GUIDELINE). G1,NORMAL OR HIGH: >89 ml/min/1.73 m2 G2,MILDLY DECREASED: 60-89 ml/min/1.73 m2 G3A,MILDLY TO MODERATELY DECREASED: 45-59 ml/min/1.73 m2 G3B,MODERATELY TO SEVERELY DECREASED: 30-44 ml/min/1.73 m2 G4,SEVERELY DECREASED: 15-29 ml/min/1.73 m2 G5,KIDNEY FAILURE: <15 ml/min/1.73 m2 10/12/2022 3:23 AM CDT Shahab Gonzalez PA-C LABORATORY Final Resul t [facility] [address] [place] [address], [place] [phone] [id number] * (ABNORMAL) CBC W/DIFF AUTOMATED (10/12/2022 3:23 AM CDT) WBC 7.91 4.00 - 10.80 x10'3/uL 10/12/2022 4:10 AM CDT [facility] RBC 4.24 4.10 - 5.40 x10'6/uL 10/12/2022 4:10 AM CDT [facility] HGB 12.7 12.0 - 16.0 G/DL 10/12/2022 4:10 AM CDT [facility] HCT 39.0 36.0 - 47.0 % 10/12/2022 4:10 AM CDT [facility] MCV 92.0 78.0 - 100.0 FL 10/12/2022 4:10 AM CDT [facility] MCH 30.0 27.0 - 31.0 PG 10/12/2022 4:10 AM CDT [facility] MCHC 32.6(L) 33.0 - 36.0 G/DL 10/12/2022 4:10 AM CDT [facility] RDW 11.9 11.5 - 14.5 % 10/12/2022 4:10 AM CDT [facility] PLT 275 150 - 350 x10'3/uL 10/12/2022 4:10 AM CDT [facility] MPV 10.8(H) 7.4 - 10.4 FL 10/12/2022 4:10 AM CDT [facility] ABS. NEUTROPHILS 6.09 1.60 - 8.30 x10'3/uL 10/12/2022 4:10 AM CDT [facility] ABS. LYMPHOCYTES 0.98 0.80 - 4.70 x10'3/uL 10/12/2022 4:10 AM CDT [facility] ABS. MONOCYTES 0.68 0.00 - 1.50 x10'3/uL 10/12/2022 4:10 AM CDT [facility] ABS. EOSINOPHILS 0.11 0.00 - 0.40 x10'3/uL 10/12/2022 4:10 AM CDT [facility] ABS. BASOPHILS 0.04 0.00 - 0.20 x10'3/uL 10/12/2022 4:10 AM CDT [facility] ABS. IMMATURE GRANULOCYTES 0.01 0.00 - 0.03 x10'3/uL 10/12/2022 4:10 AM CDT [facility] ABS. NUCLEATED RBC'S 0.00 0.0 x10'3/uL 10/12/2022 4:10 AM CDT [facility] 10/12/2022 3:23 AM CDT Shahab Gonzalez PA-C LABORATORY Final Resul t [facility] [address] [place] [address], [id number] * (ABNORMAL) BASIC METABOLIC PANEL (10/09/2022 5:31 AM CDT) SODIUM S/P/B 137 136 - 145 MMOL/L 10/09/2022 6:24 AM CDT [facility] POTASSIUM S/P/B 3.7 3.5 - 5.1 MMOL/L 10/09/2022 6:24 AM CDT [facility] CHLORIDE S/P/B 107 98 - 107 MMOL/L 10/09/2022 6:24 AM CDT [facility] CO2 26.2 21.0 - 32.0 MMOL/L 10/09/2022 6:24 AM CDT [facility] GLUCOSE 91 74 - 106 MG/DL 10/09/2022 6:24 AM CDT [facility] BUN 9 7 - 18 MG/DL 10/09/2022 6:24 AM CDT [facility] CREATININE S/P/B 0.79 0.55 - 1.02 MG/DL 10/09/2022 6:24 AM CDT [facility] CALCIUM S/P/B 8.7 8.5 - 10.1 MG/DL 10/09/2022 6:24 AM CDT [facility] ANION GAP 3.8(L) 5.0 - 15.0 MMOL/L 10/09/2022 6:24 AM CDT [facility] OSMOLALITY (CALC) 282 MOSM/KG 023 6:24 AM CDT [facility] Comment:REFERENCE RANGE NOT ESTABLISHED GFR ESTIMATE 75(L) >90 ML/MIN/1. 73 M2 10/09/2022 6:24 AM CDT [facility] GFR NOTES GFR REFERENCE S: 10/09/2022 6:24 AM T [facility] Comment: THE ESTIMATED GFR IS CALCULATED USING THE 2020 CKD-EPI EQUATION. THE FOLLOWING CATEGORIES FOR GRADING RENAL FUNCTION ARE RECOMMENDED BY THE INTERNATIONAL [employer]Y OF NEPHROLOGY (KDIGO 2012 CLINICAL PRACTICE GUIDELINE). G1,NORMAL OR HIGH: >89 ml/min/1.73 m2 G2,MILDLY DECREASED: 60-89 ml/min/1.73 m2 G3A,MILDLY TO MODERATELY DECREASED: 45-59 ml/min/1.73 m2 G3B,MODERATELY TO SEVERELY DECREASED: 30-44 ml/min/1.73 m2 G4,SEVERELY DECREASED: 15-29 ml/min/1.73 m2 G5,KIDNEY FAILURE: <15 ml/min/1.73 m2 10/09/2022 5:31 AM CDT us Nikko Biggs MD LABORATORY Final R esult [facility] [address] [place] [address], [id number] * (ABNORMAL) CBC W/DIFF AUTOMATED (10/09/2022 5:31 AM CDT) [facility] WBC 5.57 4.00 - 10.80 x10'3/uL 10/09/2022 5:59 AM CDT [facility] RBC 3.80(L) 4.10 - 5.40 x10'6/uL 10/09/2022 5:59 AM CDT [facility] HGB 11.7(L) 12.0 - 16.0 G/DL 10/09/2022 5:59 AM CDT [facility] HCT 35.5(L) 36.0 - 47.0 % 10/09/2022 5:59 AM CDT [facility] MCV 93.4 78.0 - 100.0 FL 10/09/2022 5:59 AM CDT [facility] MCH 30.8 27.0 - 31.0 PG 10/09/2022 5:59 AM CDT [facility] MCHC 33.0 33.0 - 36.0 G/DL 10/09/2022 5:59 AM CDT [facility] RDW 12.1 11.5 - 14.5 % 10/09/2022 5:59 AM CDT [facility] PLT 179 150 - 350 x10'3/uL 10/09/2022 5:59 AM CDT [facility] MPV 11.5(H) 7.4 - 10.4 FL 10/09/2022 5:59 AM CDT [facility] ABS. NEUTROPHILS 3.90 1.60 - 8.30 x10'3/uL 10/09/2022 5:59 AM CDT [facility] ABS. LYMPHOCYTES 0.89 0.80 - 4.70 x10'3/uL 10/09/2022 5:59 AM CDT [facility] ABS. MONOCYTES 0.56 0.00 - 1.50 x10'3/uL 10/09/2022 5:59 AM CDT [facility] ABS. EOSINOPHILS 0.16 0.00 - 0.40 x10'3/uL 10/09/2022 5:59 AM CDT [facility] ABS. BASOPHILS 0.04 0.00 - 0.20 x10'3/uL 10/09/2022 5:59 AM CDT [facility] ABS. IMMATURE GRANULOCYTES 0.02 0.00 - 0.03 x10'3/uL 10/09/2022 5:59 AM CDT [facility] ABS. NUCLEATED RBC'S 0.00 0.0 x10'3/uL 10/09/2022 5:59 AM CDT [facility] 10/09/2022 5:31 AM CDT Nikko Biggs MD LABORATORY Final R esult [facility] [address] [place] [address], [id number] * CTA NECK (10/08/2022 10:17 PM CDT) Anatomical Region Laterality Modality Neck Computed Tomogra phy 10/08/2022 10:2 4 PM CDT Impressions 10/08/2022 10:29 PM CDT IMPRESSION: 1. ??Small focal filling defect within the left vertebral artery at the level of C2 that is highly suspicious for a tiny focal dissection. 2. ??Normal appearance of the right vertebral artery and both carotid arteries. Referred By: NGOC CHAVIRA Interpreted By: Thaddeus Saleh MD, 10/08/2022 10:24 PM Narrative 10/08/2022 10:29 PM CDT INDICATION: Neck trauma. ??Fall down stairs. ??Neck pain. COMPARISON: None. TECHNIQUE: CT angiography of the neck was performed with intravenous contrast administration. Source images as well as 3D slab maximum intensity projection (MIP) reformats were obtained and reviewed. DOSE OPTIMIZATION: This facility uses dose optimization techniques as appropriate to perform exams, including at least one of the following techniques: 1. Automated exposure control. 2. Adjustment of the mA and/or kV according to patient size (this includes techniques or standardized protocols for targeted exams where dose is matched to the indication/reason for exam, i.e. extremities or head). 3. Use of iterative reconstructive technique. FINDINGS: Aortic Arch: The aortic arch and origins of the great vessels are unremarkable. Right Common & Internal Carotid Arteries: The vessels are widely patent. There is no significant stenosis. There is no aneurysm or dissection. Left Common & Internal Carotid Arteries: The vessels are widely patent. There is no significant stenosis. There is no aneurysm or dissection. Vertebral Arteries: The right vertebral artery is normal and widely patent. ??There is a flap-like filling defect within a portion of the left vertebral artery at the level of C2, which has the appearance of a small focal dissection flap. ??This is best appreciated on axial images 49 through 53. ??There is otherwise no arterial occlusion and the remainder of the left vertebral artery is normal and patent. Soft Tissues: Unremarkable. Procedure Note Thaddeus Saleh MD - 10/08/2022 INDICATION: Neck trauma. Fall down stairs. Neck pain. COMPARISON: None. TECHNIQUE: CT angiography of the neck was performed with intravenouscontrast administration. Source images as well as 3D slab maximumintensity projection (MIP) reformats were obtained and reviewed. DOSE OPTIMIZATION: This facility uses dose optimization techniques asappropriate to perform exams, including at least one of the followingtechniques: 1. Automated exposure control. 2. Adjustment of the mA and/or kV according to patient size (this includestechniques or standardized protocols for targeted exams where dose ismatched to the indication/reason for exam, i.e. extremities or head). 3. Use of iterative reconstructive technique. FINDINGS: Aortic Arch: The aortic arch and origins of the great vessels are unremarkable. Right Common & Internal Carotid Arteries: The vessels are widely patent. There is no significant stenosis. There isno aneurysm or dissection. Left Common & Internal Carotid Arteries: The vessels are widely patent. There is no significant stenosis. There isno aneurysm or dissection. Vertebral Arteries: The right vertebral artery is normal and widely patent. There is aflap-like filling defect within a portion of the left vertebral artery atthe level of C2, which has the appearance of a small focal dissectionflap. This is best appreciated on axial images 49 through 53. There isotherwise no arterial occlusion and the remainder of the left vertebralartery is normal and patent. Soft Tissues: Unremarkable. IMPRESSION: 1. Small focal filling defect within the left vertebral artery at thelevel of C2 that is highly suspicious for a tiny focal dissection. 2. Normal appearance of the right vertebral artery and both carotidarteries. Referred By: NGOC CHAVIRA Interpreted By: Thaddeus Saleh MD, 10/08/2022 10:24 PM us Nikko Biggs MD CT Final R esult * XR WRIST LT MIN 3V (10/08/2022 9:42 PM CDT) Anatomical Region Laterality Modality Wrist Radiographic Ricarda ging 10/08/2022 9:55 PM CDT Impressions 10/08/2022 9:56 PM CDT IMPRESSION: Abnormalities as discussed, see report. Ordered By: NIKKO BIGGS Interpreted By: Rakesh Newby MD, 10/08/2022 9:55 PM Narrative 10/08/2022 9:56 PM CDT 10/08/2022, 2136 hours. HISTORY: Fell. Pain. EXAM: AP, lateral and oblique views of the left wrist. No comparison. FINDINGS: Venous port catheter is present in the soft tissues at the dorsal lateral aspect of the hand. Osteoarthritis trapezium first metacarpal articulation with joint space narrowing, subcortical bone sclerosis and marginal spur formation. Mild osteoarthritis at the ST-T complex of the wrist with slight joint space narrowing. On the AP images scapholunate joint space appears widened raising the concern of scapholunate dissociation. Small intraosseous cyst in the capitate. No evidence of acute fracture. No gross bone destruction. There is soft tissue swelling about the dorsum of the wrist. There is some tissue swelling and/or some interstitial gas within the tissues at the medial aspect of the distal forearm. Procedure Note Rakesh Newby MD - 10/08/2022 10/08/2022, 2136 hours. HISTORY: Fell. Pain. EXAM: AP, lateral and oblique views of the left wrist. No comparison. FINDINGS: Venous port catheter is present in the soft tissues at thedorsal lateral aspect of the hand. Osteoarthritis trapezium first metacarpal articulation with joint spacenarrowing, subcortical bone sclerosis and marginal spur formation. Mildosteoarthritis at the ST-T complex of the wrist with slight joint spacenarrowing. On the AP images scapholunate joint space appears widenedraising the concern of scapholunate dissociation. Small intraosseous cystin the capitate. No evidence of acute fracture. No gross bone destruction.There is soft tissue swelling about the dorsum of the wrist. There is sometissue swelling and/or some interstitial gas within the tissues at themedial aspect of the distal forearm. IMPRESSION: Abnormalities as discussed, see report. Ordered By: NIKKO BIGGS Interpreted By: Rakesh Newby MD, 10/08/2022 9:55 PM us Nikko Biggs MD GENERAL IMAGING Final R esult * XR KNEE LT 3V (10/08/2022 9:42 PM CDT) Anatomical Region Laterality Modality Knee Radiographic Ricarda ging 10/08/2022 9:56 PM CDT Impressions 10/08/2022 9:57 PM CDT IMPRESSION: Three-part cemented left TKR. No acute bony abnormality. Soft tissue swelling anterior to the patellar tendon. Ordered By: NIKKO BIGGS Interpreted By: Rakesh Newby MD, 10/08/2022 9:56 PM Narrative 10/08/2022 9:57 PM CDT 10/08/2022, 9:39 AM. HISTORY: Left knee swelling and bruising. Prior knee arthroplasties. EXAM: AP, lateral and patellar sunrise views of the left knee. No comparison. FINDINGS: Three-part cemented left total knee replacement with no evidence of loosening nor infection. No fracture. No gross bone destruction. No calcified intra-articular body. No joint effusion. There is soft tissue swelling superficial to the patellar tendon. Procedure Note Rakesh Newby MD - 10/08/2022 10/08/2022, 9:39 AM. HISTORY: Left knee swelling and bruising. Prior knee arthroplasties. EXAM: AP, lateral and patellar sunrise views of the left knee. Nocomparison. FINDINGS: Three-part cemented left total knee replacement with no evidenceof loosening nor infection. No fracture. No gross bone destruction. Nocalcified intra-articular body. No joint effusion. There is soft tissueswelling superficial to the patellar tendon. IMPRESSION: Three-part cemented left TKR. No acute bony abnormality. Soft tissueswelling anterior to the patellar tendon. Ordered By: NIKKO BIGGS Interpreted By: Rakesh Newby MD, 10/08/2022 9:56 PM Nikko Biggs MD GENERAL IMAGING Final R esult documented in this encounter Visit Diagnoses Diagnosis Cervical spine fracture ([facility])- Primary Closed fracture of cervical vertebra, unspecified level without mention of spinal cord injury Closed cervical spine fracture ([facility]) Closed fracture of cervical vertebra, unspecified level without mention of spinal cord injury Facial laceration Open wound of face, unspecified site, without mention of complication Fall Unspecified fall Other closed nondisplaced fracture of fifth cervical vertebra, initial encounter ([facility]) Closed nondisplaced fracture of fifth cervical vertebra ([facility]) Closed fracture of fifth cervical vertebra without mention of spinal cord injury 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 Frequent falls Personal history of fall Dizziness Dizziness and giddiness Atrial fibrillation ([facility]) Atrial fibrillation Mitral regurgitation Mitral valve disorders Senile osteoporosis Predominant disturbance of emotions Depression Depressive disorder, not elsewhere classified Neuropathy 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 Common migraine Migraine without aura, without mention of intractable migraine without mention of status migrainosus documented in this encounter Admitting Diagnoses Diagnosis Cervical spine fracture ([facility]) Closed fracture of cervical vertebra, unspecified level without mention of spinal cord injury documented in this encounter Administered Medications Inactive Administered Medications - up to 3 most recent administrations Medication Order MAR Action Action Date Dose Rate Site acetaminophen (TYLENOL) suppository 650 mg 650 mg, Rectal, Every 4 hours PRN, Mild pain (Scale 1 - 3), Starting on Julee 10/08/22 at 2135, Until Wed10/13/22 at 1518, Give if unable to take PO. Maximum dose of acetaminophen is 4000 mg from all sources in 24 hours. acetaminophen (TYLENOL) suspension 650 mg 650 mg, Oral, Every 4 hours PRN, Mild pain (Scale 1 - 3), Starting on Julee 10/08/22 at 2135, Until Wed10/13/22 at 1518, Give if unable to swallow tablets/capsules or if patient prefers liquid. Maximum dose of acetaminophen is 4000 mg from all sources in 24 hours. acetaminophen (TYLENOL) tablet 650 mg 650 mg, Oral, Every 4 hours PRN, Mild pain (Scale 1 - 3), Starting on Julee 10/08/22 at 2135, Until Wed10/13/22 at 1518, Maximum dose of acetaminophen is 4000 mg from all sources in 24 hours. Given 10/13/2022 8:35 AM CDT 650 mg Given 10/11/2022 8:16 AM CDT 650 mg Given 10/09/2022 9:55 AM CDT 650 mg amiodarone (PACERONE) tablet 200 mg 200 mg, Oral, Every 3 days, First dose on Wed10/11/22 at 1015, Until Discontinued, TAKE EVERY THIRD DAY Given 10/11/2022 10:33 AM CDT 200 mg apixaban (ELIQUIS) tablet 2.5 mg 2.5 mg, Oral, 2 times daily, Indications: Atrial Fibrillation, First dose on Julee 10/08/22 at 2145, Until DiscontinuedIndications:Atrial Fibrillation Given 10/13/2022 8:35 AM C DT 2.5 mg Given 10/12/2022 9:19 PM CDT 2.5 mg Given 10/12/2022 10:17 AM CDT 2.5 mg ARIPiprazole (ABILIFY) tablet 15 mg 15 mg, Oral, Daily, First dose on 10/11/22 at 1015, Until Discontinued Given 10/13/2022 8:36 AM CDT 15 mg Given 10/12/2022 10:23 AM CDT 15 mg Given 10/11/2022 10:33 AM CDT 15 mg aspirin chewable tablet 81 mg 81 mg, Oral, Daily, First dose on Wed10/09/22 at 0900, Until Discontinued Given 10/13/2022 8:36 AM CDT 81 mg Given 10/12/2022 10:17 AM CDT 81 mg Given 10/11/2022 8:16 AM CDT 81 mg bacitracin ointment Topical, 2 times daily, First dose on Wed10/08/22 at 2145, Until Discontinued, Apply a light coat to sutures, rudy and/or abrasions Given 10/13/2022 8:36 AM CDT Given 10/12/2022 9:18 PM CDT Given 10/12/2022 10:18 AM CDT calcium carbonate 1250 MG/5ML oral suspension 1,250 mg 1,250 mg, Oral, Daily, First dose on 10/11/22 at 1015, Until Discontinued, Shake Well. Take with meal or snack. Given 10/12/2022 10:18 AM CDT 1,250 mg Given 10/11/2022 3:05 PM CDT 1,250 mg citalopram (CeleXA) tablet 40 mg 40 mg, Oral, Daily, First dose on 10/11/22 at 1400, Until Discontinued, Therapeutic interchange for home escitalopram Given 10/13/2022 8:36 AM CDT 40 mg Given 10/12/2022 10:17 AM CDT 40 mg Given 10/11/2022 3:05 PM CDT 40 mg DULoxetine (CYMBALTA) capsule 60 mg 60 mg, Oral, 2 times daily, First dose on 10/11/22 at 1400, Until Discontinued, Swallow capsule whole or it may be opened and the contents sprinkled on applesauce. Given 10/13/2022 8:35 AM CDT 60 mg Given 10/12/2022 9:19 PM CDT 60 mg Given 10/12/2022 10:18 AM CDT 60 mg famotidine (PEPCID) tablet 20 mg 20 mg, Oral, Daily, First dose on Wed10/09/22 at 0900, Until Discontinued Given 10/11/2022 8:16 AM CDT 20 mg Given 10/10/2022 8:38 AM CDT 20 mg Given 10/09/2022 9:55 AM CDT 20 mg gabapentin (NEURONTIN) capsule 100 mg 100 mg, Oral, 3 times daily, First dose on Wed10/11/22 at 1015, Until Discontinued Given 10/13/2022 8:35 AM CDT 100 m g Given 10/12/2022 9:19 PM CDT 100 mg Given 10/12/2022 4:20 PM CDT 100 mg HYDROcodone-acetaminophen (NORCO) 5-325 MG tablet 1 tablet 1 tablet, Oral, Every 4 hours PRN, Moderate pain (Scale 4 - 7), Starting on Wed10/08/22 at 2135, Until Wed10/11/22 at 0954, Maximum dose of acetaminophen is 4000 mg from all sources in 24 hours. Given 10/10/2022 6:14 PM CDT 1 tablet HYDROcodone-acetaminophen (NORCO) 5-325 MG tablet 1 tablet 1 tablet, Oral, Every 4 hours PRN, Severe pain (Scale 8 - 10), Starting on Wed10/11/22 at 0954, Until Wed10/13/22 at 1518, Maximum dose of acetaminophen is 4000 mg from all sources in 24 hours. Given 10/13/2022 1:13 PM CDT 1 tablet Given 10/12/2022 9:19 PM CDT 1 tablet Given 10/12/2022 10:18 AM CDT 1 tablet iopamidol (ISOVUE-370) 76 % injection 80 mL 80 mL, Intravenous, IMG once as needed, Contrast, 1 dose, Starting on Wed10/08/22 at 2217, Until Wed10/08/22 at 2217 Given 10/08/2022 10:17 PM CDT 80 mLs LORazepam (ATIVAN) tablet 0.5 mg 0.5 mg, Oral, 2 times daily, First dose on Wed10/11/22 at 1015, Until Discontinued Given 10/13/2022 8:35 AM CDT 0.5 m g Given 10/12/2022 9:18 PM CDT 0.5 mg Given 10/12/2022 10:18 AM CDT 0.5 mg metoprolol succinate ER (TOPROL-XL) 24 hr tablet 25 mg 25 mg, Oral, Daily, First dose on Wed10/11/22 at 1015, Until Discontinued, May be split in half along the tablet score line; do not chew or crush. Given 10/13/2022 8:35 AM CDT 25 mg Given 10/12/2022 10:18 AM CDT 25 mg Given 10/11/2022 10:33 AM CDT 25 mg ondansetron (ZOFRAN) injection 4 mg 4 mg, Intravenous, Every 8 hours PRN, Nausea, Vomiting, Starting on Wed10/08/22 at 2134, Until Wed10/13/22 at 1518, Use PRN antiemetics in this order to achieve relief of nausea and/or vomiting: Ondansetron first followed by Metoclopramide pantoprazole EC (PROTONIX) tablet 40 mg 40 mg, Oral, Daily, First dose on Wed10/11/22 at 1015, Until Discontinued, Do not break, chew, or crush. Given 10/13/2022 8:35 AM CDT 40 mg Given 10/12/2022 10:18 AM CDT 40 mg Given 10/11/2022 10:33 AM CDT 40 mg polyethylene glycol (GLYCOLAX) packet 17 g 17 g, Oral, Daily as needed, Constipation, Starting on Wed10/08/22 at 2134, Until Wed10/13/22 at 1518, Use to achieve relief of constipation in the following order if multiple PRN bowel agents are ordered: Docusate, then Senna-Docusate, then Miralax, then Bisacodyl, then Milk of Magnesia Given 10/12/2022 10:18 AM CDT 17 g senna-docusate (SENOKOT-S) 8.6-50 MG tablet 1 tablet 1 tablet, Oral, 2 times daily, First dose on Wed10/08/22 at 2145, Until Discontinued, Hold for loose stools. Tablet may be crushed and given via TF. Given 10/13/2022 8:35 AM CDT 1 tablet Given 10/12/2022 9:19 PM CDT 1 tablet Given 10/12/2022 10:18 AM CDT 1 tablet sodium chloride 0.9% infusion at 50 mL/hr, Intravenous, Continuous, Starting on 10/12/22 at 1330, Until Wed10/13/22 at 0129 New Bag 10/12/2022 2:55 PM CDT 50 mL/hr solifenacin (VESICARE) tablet 5 mg 5 mg, Oral, Daily, First dose on Wed10/11/22 at 1015, Until Discontinued, Do not break, chew, or crush. Given 10/13/2022 8:35 AM CDT 5 mg Given 10/12/2022 10:17 AM CDT 5 mg Given 10/11/2022 10:33 AM CDT 5 mg SUMAtriptan (IMITREX) tablet 50 mg 50 mg, Oral, DAILY PRN, Migraine, Starting on Wed10/11/22 at 0949, Until Wed10/13/22 at 1518, May repeat dose in 2 hours if no relief. Do not exceed 2 doses in 24 hours. Given 10/11/2022 10:33 AM CDT 50 mg traMADol (ULTRAM) tablet 50 mg 50 mg, Oral, Every 6 hours PRN, Moderate pain (Scale 4 - 7), Starting on Wed10/11/22 at 0954, Until Wed10/13/22 at 1518 vitamin D3 (cholecalciferol) tablet 5,000 Units 5,000 Units, Oral, Daily, First dose on Wed10/11/22 at 1015, Until Discontinued Given 10/13/2022 8:35 AM CDT 5, 000 Units Given 10/12/2022 10:17 AM CDT 5,000 Units Given 10/11/2022 10:33 AM CDT 5,000 Units documented in this encounter Active and Recently Administered Medications Times are shown in CDT. Scheduled Medication Order 10/11/2022 10/12/2022 10/13/2022 amiodarone (PACERONE) tablet 200 mg 200 mg, Oral, Every 3 days, First dose on Wed10/11/22 at 1015, Until Discontinued, TAKE EVERY THIRD DAY 1033 (Given - Provider: Maribel Benoit RN) apixaban (ELIQUIS) tablet 2.5 mg 2.5 mg, Oral, 2 times daily, Indications: Atrial Fibrillation, First dose on Julee 10/08/22 at 2145, Until Discontinued 0816 (Given - Provider: Maribel Benoit RN)2020 (Given - Provider: Leland Christianson RN) 101 (Given - Provider: Danette Velasquez RN)2118 (Given - Provider: Wade Andres RN) 0835 (Given - Provider: Danette Velasquez RN) ARIPiprazole (ABILIFY) tablet 15 mg 15 mg, Oral, Daily, First dose on 10/11/22 at 1015, Until Discontinued 1033 (Given - Provider: Maribel Benoit RN) 1023 (Given - Provider: Danette Velasquez RN) 0836 (Given - Provider: Danette Velasquez RN) aspirin chewable tablet 81 mg 81 mg, Oral, Daily, First dose on Wed10/09/22 at 0900, Until Discontinued 0816 (Given - Provider: Maribel Benoit RN) 101 (Given - Provider: Danette Velasquez RN) 0836 (Given - Provider: Danette Velasquez RN) bacitracin ointment Topical, 2 times daily, First dose on Julee 10/08/22 at 2145, Until Discontinued, Apply a light coat to sutures, rudy and/or abrasions 0816 (Given - Provider: Maribel Benoit RN)2020 (Given - Provider: Leland Christianson RN) 101 (Given - Provider: Danette Velasquez RN)2117 (Given - Provider: Wade Andres RN) 0836 (Given - Provider: Danette Velasquez RN) calcium carbonate 1250 MG/5ML oral suspension 1,250 mg 1,250 mg, Oral, Daily, First dose on 10/11/22 at 1015, Until Discontinued, Shake Well. Take with meal or snack. 1505 (Given - Provider: Maribel Benoit RN) 1018 (Given - Provider: Danette Velasquez RN) 0839 (Not Given - Provider: Danette eVlasquez RN - Reason: Patient/family declined) citalopram (CeleXA) tablet 40 mg 40 mg, Oral, Daily, First dose on 10/11/22 at 1400, Until Discontinued, Therapeutic interchange for home escitalopram 1505 (Given - Provider: Maribel Benoit RN) 1017 (Given - Provider: Danette Velasquez RN) 0836 (Given - Provider: Danette Velasquez RN) DULoxetine (CYMBALTA) capsule 60 mg 60 mg, Oral, 2 times daily, First dose on 10/11/22 at 1400, Until Discontinued, Swallow capsule whole or it may be opened and the contents sprinkled on applesauce. 1505 (Given - Provider: Maribel Benoit RN)2020 (Given - Provider: Leland Christianson RN) 1018 (Given - Provider: Danette Velasquez RN)211 (Given - Provider: Wade Andres RN) 0835 (Given - Provider: Danette Velasquez RN) famotidine (PEPCID) tablet 20 mg (CANCELED)(Linked Group 1) 20 mg, Oral, Daily, First dose on Wed10/09/22 at 0900, Until Discontinued 0816 (Given - Provider: Maribel Benoit RN) gabapentin (NEURONTIN) capsule 100 mg 100 mg, Oral, 3 times daily, First dose on 10/11/22 at 1015, Until Discontinued 1033 (Given - Provider: Maribel Benoit RN)1505 (Given - Provider: Maribel Benoit RN)2020 (Given - Provider: Leland Christianson RN) 1018 (Given - Provider: Danette Velasquez RN)1620 (Given - Provider: Danette Velasquez RN)211 (Given - Provider: Wade Andres RN) 0835 (Given - Provider: Danette Velasquez RN) LORazepam (ATIVAN) tablet 0.5 mg 0.5 mg, Oral, 2 times daily, First dose on 10/11/22 at 1015, Until Discontinued 1033 (Given - Provider: Maribel Benoit RN)2020 (Given - Provider: Leland Christianson RN) 101 (Given - Provider: Danette Velasquez RN)2117 (Given - Provider: Wade Andres, NICK) 0835 (Given - Provider: Danette Velasquez, NICK) metoprolol succinate ER (TOPROL-XL) 24 hr tablet 25 mg 25 mg, Oral, Daily, First dose on 10/11/22 at 1015, Until Discontinued, May be split in half along the tablet score line; do not chew or crush. 1033 (Given - Provider: Maribel Benoit RN) 1018 (Given - Provider: Danette Velasquez RN) 0835 (Given - Provider: Danette Velasquez RN) pantoprazole EC (PROTONIX) tablet 40 mg 40 mg, Oral, Daily, First dose on 10/11/22 at 1015, Until Discontinued, Do not break, chew, or crush. 1033 (Given - Provider: Maribel Benoit RN) 1018 (Given - Provider: Danette Velasquez RN) 0835 (Given - Provider: Danette Velasquez RN) senna-docusate (SENOKOT-S) 8.6-50 MG tablet 1 tablet 1 tablet, Oral, 2 times daily, First dose on Julee 10/08/22 at 2145, Until Discontinued, Hold for loose stools. Tablet may be crushed and given via TF. 0816 (Given - Provider: Maribel Benoit RN)2019 (Given - Provider: Lleand Christianson RN) 101 (Given - Provider: Danette Velasquez, NICK)2118 (Given - Provider: Wade Andres, NICK) 0835 (Given - Provider: Danette Velasquez RN) solifenacin (VESICARE) tablet 5 mg 5 mg, Oral, Daily, First dose on 10/11/22 at 1015, Until Discontinued, Do not break, chew, or crush. 1033 (Given - Provider: Maribel Benoit RN) 1017 (Given - Provider: Danette Velasquez RN) 0835 (Given - Provider: Danette Velasquez RN) vitamin D3 (cholecalciferol) tablet 5,000 Units 5,000 Units, Oral, Daily, First dose on 10/11/22 at 1015, Until Discontinued 1033 (Given - Provider: Maribel Benoit RN) 1017 (Given - Provider: Danette Velasquez RN) 0835 (Given - Provider: Danette Velasquez RN) Continuous Medication Order 10/11/2022 10/12/2022 10/13/2022 sodium chloride 0.9% infusion at 50 mL/hr, Intravenous, Continuous, Starting on Wed10/12/22 at 1330, Until Wed10/13/22 at 0129 1455 (New Bag - Provider: Danette Velasquez RN) PRN Medication Order 10/11/2022 10/12/2022 10/13/2022 acetaminophen (TYLENOL) suppository 650 mg(Linked Group 2) 650 mg, Rectal, Every 4 hours PRN, Mild pain (Scale 1 - 3), Starting on Julee 10/08/22 at 2135, Until Wed10/13/22 at 1518, Give if unable to take PO. Maximum dose of acetaminophen is 4000 mg from all sources in 24 hours. 0816 (See Alternative - Provider: Maribel Benoit RN) 0835 (See Alternative - Provider: Danette Velasquez RN) acetaminophen (TYLENOL) suspension 650 mg(Linked Group 2) 650 mg, Oral, Every 4 hours PRN, Mild pain (Scale 1 - 3), Starting on Julee 10/08/22 at 2135, Until Wed10/13/22 at 1518, Give if unable to swallow tablets/capsules or if patient prefers liquid. Maximum dose of acetaminophen is 4000 mg from all sources in 24 hours. 0816 (See Alternative - Provider: Maribel Benoit RN) 0835 (See Alternative - Provider: Danette Velasquez RN) acetaminophen (TYLENOL) tablet 650 mg(Linked Group 2) 650 mg, Oral, Every 4 hours PRN, Mild pain (Scale 1 - 3), Starting on Julee 10/08/22 at 2135, Until Wed10/13/22 at 1518, Maximum dose of acetaminophen is 4000 mg from all sources in 24 hours. 0816 (Given - Provider: Maribel Benoit RN) 0835 (Given - Provider: Danette Velasquez RN) HYDROcodone-acetaminophe n (NORCO) 5-325 MG tablet 1 tablet 1 tablet, Oral, Every 4 hours PRN, Severe pain (Scale 8 - 10), Starting on Wed10/11/22 at 0954, Until Wed10/13/22 at 1518, Maximum dose of acetaminophen is 4000 mg from all sources in 24 hours. 1018 (Given - Provider: Danette Velasquez RN)2119 (Given - Provider: Wade Andres RN) 1313 (Given - Provider: Danette Velasquez RN) ondansetron (ZOFRAN) injection 4 mg 4 mg, Intravenous, Every 8 hours PRN, Nausea, Vomiting, Starting on Julee 10/08/22 at 2134, Until Wed10/13/22 at 1518, Use PRN antiemetics in this order to achieve relief of nausea and/or vomiting: Ondansetron first followed by Metoclopramide polyethylene glycol (GLYCOLAX) packet 17 g 17 g, Oral, Daily as needed, Constipation, Starting on Julee 10/08/22 at 2134, Until Wed10/13/22 at 1518, Use to achieve relief of constipation in the following order if multiple PRN bowel agents are ordered: Docusate, then Senna-Docusate, then Miralax, then Bisacodyl, then Milk of Magnesia 1018 (Given - Provider: Danette Velasquez RN) SUMAtriptan (IMITREX) tablet 50 mg 50 mg, Oral, DAILY PRN, Migraine, Starting on Wed10/11/22 at 0949, Until Wed10/13/22 at 1518, May repeat dose in 2 hours if no relief. Do not exceed 2 doses in 24 hours. 1033 (Given - Provider: Maribel Benoit RN) traMADol (ULTRAM) tablet 50 mg 50 mg, Oral, Every 6 hours PRN, Moderate pain (Scale 4 - 7), Starting on 10/11/22 at 0954, Until Wed10/13/22 at 1518 Linked Groups Order Group 1: famotidine (PF) (PEPCID) injection 20 mg (CANCELED) 20 mg, Intravenous, Daily, First dose on Wed10/09/22 at 0900, Until Discontinued, Give if unable to take PO. IV Push over 2 minutes Or famotidine (PEPCID) tablet 20 mg (CANCELED)Jump to med 20 mg, Oral, Daily, First dose on Wed10/09/22 at 0900, Until Discontinued Group 2: acetaminophen (TYLENOL) tablet 650 mgJump to med 650 mg, Oral, Every 4 hours PRN, Mild pain (Scale 1 - 3), Starting on Julee 10/08/22 at 2135, Until Wed10/13/22 at 1518, Maximum dose of acetaminophen is 4000 mg from all sources in 24 hours. Or acetaminophen (TYLENOL) suppository 650 mgJump to med 650 mg, Rectal, Every 4 hours PRN, Mild pain (Scale 1 - 3), Starting on Julee 10/08/22 at 2135, Until Wed10/13/22 at 1518, Give if unable to take PO. Maximum dose of acetaminophen is 4000 mg from all sources in 24 hours. Or acetaminophen (TYLENOL) suspension 650 mgJump to med 650 mg, Oral, Every 4 hours PRN, Mild pain (Scale 1 - 3), Starting on Julee 10/08/22 at 2135, Until Wed10/13/22 at 1518, Give if unable to swallow tablets/capsules or if patient prefers liquid. Maximum dose of acetaminophen is 4000 mg from all sources in 24 hours. documented in this encounter Additional Health Concerns Infection Onset Date Last Indicated Resolved Time COVID-19 Rule Out 10/13/2022 10/13/2022 10/13/2022 12:01 PM CDT documented as of this encounter Care Teams Seamer Operator Relationship Specialty Start Date End Date Jarret Martinez MD [address] [place] [id number] PCP - General FAMILY PRACTICE 12/27/17 Robbin Urban MD [address] [place] [address] [place] Network Administrator CARDIOVASCULAR DISEASE 04/24/19 documented as of this encounter
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
--- OUTSIDE RECORDS SUMMARY | 2024-03-20 22:45 | XMS_ITS | Encounter Summary ---
Author Organization [facility] Address [address] [place] [address]. [place] [address] [place] [address] Care Team Providers Care Validation Engineer Name Role Phone Jarret Kwong MD Primary Care Provider Robbin Urban MD Unavailable [phone] Encounter Details Date Type Department Care Team (Latest Contact Info) Description 11/01/2023 Travel Social History Tobacco Use Types Packs/Day Years [...] place to sleep or slept in a nursing home (including now)? No 10/09/2022 Comments No Sex [...] Okeefe RN Active documented in this encounter Plan of Treatment Not on file documented as of this encounter Goals Goal Patient Goal Type Associated Problems Recent Progress Patient-Stated? Author Family - family caregiver with be involved in care transitions and discharge planning Lifestyle No Dannielle Guillermo RN documented as of this encounter Visit Diagnoses Not on filedocumented in this encounter Care Teams Validation Engineer Relationship Specialty Start Date End Date Jarret Kwong MD [address] [place] [phone] PCP - General FAMILY PRACTICE 12/27/17 Robbin Urban MD [address] [place] [phone] [place] [employer] Solderer CARDIOVASCULAR DISEASE 04/24/19 documented as of this encounter
--- OUTSIDE RECORDS SUMMARY | 2024-03-20 22:45 | XMS_ITS | Encounter Summary ---
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 right upper extremity. Contact information: [address] [place] [id number] JARRET MARTINEZ MD Follow up. Specialty: FAMILY PRACTICE Why: Call to schedule a hospital discharge follow up appointment Contact information: [address] [facility] [place] [address] YASH JOLLY MD Follow up. Specialty: ORTHOPAEDIC SURGERY Why: Call to schedule a follow up appointment for 1 week Contact information: Esteban HERNANDEZ [place] [address] The time spent discharging the patient in the location where the care was being performed was approximately 45 minutes and does not include any separate procedures and interventions. Cosigned by Len Perry DO at 02/15/2024 7:50 AM HAM SMOKER SMOKER SMOKER documented in this encounter Discharge Instructions * Discharge Instructions* Melba Burkett NP - 02/05/2024 3:31 PM CDT Images from the original note were not included. Orthopedic surgery -Call Wednesday to schedule a follow up appointment with Dr Pryor in 2 weeks -Non weightbearing with sling right arm. OK for gentle range of motion to right elbow. Orthopedic spine -Call to schedule a follow up appointment with Dr Riddhi Delacruz at all times TRAUMA & ACUTE CARE SURGERY DISCHARGE INSTRUCTIONS Follow-up Instructions: You DO NOT need to follow-up with the Trauma & Acute Care Surgery Clinic, if you have concerns or questions regarding you Trauma Surgery care please call Please follow-up in clinic with your primary care provider within 1 week of discharge from the hospital To update them of your hospitalization To take over any scripts you may need Please follow-up with Orthopedic Surgery and Orthopedic spine as directed Trauma & General Surgery Instructions Refer to your After Visit Summary for any new or changed medications, discuss these medication changes with your Primary Care Provider Continue to be active as tolerated, get up out of bed and ambulate while always following your weightbearing instructions: Alison Delacruz collar at all times and non weight bearing with RUE in sling OK for gentle range of motion of right elbow Continue to use your incentive spirometer every 10-15 minutes while awake to avoid pneumonia Take Tylenol/Ibuprofen alternating as needed for pain control if you have no contraindications. If you take ibuprofen, please take with food. If you are taking acetaminophen (Tylenol) or a medicationwith Tylenol in it ([place]), do not exceed 4000 mg in a 24 hour period If you are discharged on Narcotic pain medications, you will need to contact your primary care provider or follow-up speciality service for any refills, [facility] may not refill your narcotic prescriptions Continue to take the prescribed bowel regimen daily while on narcotics to prevent constipation Continue to follow the following diet: General If you were a smoker, you should not resume or start smoking as this can delay healing and is overall unhealthy Please return to the closest ER if you experience any of the following: fever, new or worsening chest pain, shortness of breath, or abdominal pain, wound drainage/redness, new or worsening numbness or tingling, loss of bowel or bladder function Wound Care Instructions Wash your hands with soap and water before performing any dressing changes, consider wearing glovesas needed Keep the wound(s) clean and dry at all times, wash the wounds with mild soap and water, pat dry Apply a topical antibiotic ointment to any superficial wounds twice daily, cleanse wounds prior to applying ointment You may shower as usual after the first 24 hours, but do not soak the area in water (no tub baths or swimming) until after you follow up with your doctor No swimming in lakes, simmons, or dirty water until cleared by your care team If bleeding occurs from the wound, cover with a gauze or towel and apply firm direct pressure without letting go for 5 full minutes. This gives time for a clot to form. If this does not stop bleeding, return to the closest hospital emergency room promptly Most superficial skin wounds heal within ten days. However, even with proper treatment, a wound infection may occur, call your doctor if you develp any of the following: Increased drainage or bleeding from the wound that won???t stop with direct pressure Redness in or around the wound Foul odor or pus coming from the wound Increased swelling around the wound Fever above 101.0??F or shaking chills Condition Specific Instructions Patient Education Cervical Immobilizers About this topic A cervical immobilizer is a kind of brace for your neck. You may also hear it called a cervical collar or C-collar. It is made to support your head and neck. It also helps to limit how much you can move your neck after an injury or surgery. There are a few kinds of C-collars. Soft collars are made of foam. They support your head a little, limit a small amount of motion, and may help ease pain. Rigid collars are made of plastic and have a part that goes under the chin. They keep your neck from moving and are often used after surgery or a serious injury. General Always ask your doctor how often you should wear the brace. Some doctors may have you wear it all the time except when washing or showering. If you are allowed to remove your neck brace for showering, keep your neck stiff. You may need a helper to wash your hair. It is very important not to move your neck. It is best if you can have someone help you take off and put on your brace. To take your brace off: Undo the Velcro straps on one side of the collar. Carefully open up the collar and take it off. To put your brace on: Sit or sheet cutting operator front of a mirror. Put the front part of your brace in the correct position and line up your chin with the chin piece. Place the back part of the brace in the center of your neck. Pull the straps snugly until the brace is secure. Helpful tips Some braces come with different liners for the chin, front of the brace, and back of the brace. Hand wash the liners with mild detergent. Air dry. Follow the manager switch's instructions on how to change the liners. Hand wash the plastic part of the brace with mild detergent. Towel dry. Keep your brace away from heat or flames. Check your neck for areas of redness, sores, or skin irritation each time you take off your neck brace. If they do not go away within 20 minutes, let your palm gatherer or doctor know. If you are able to move your neck when you have a rigid cervical collar, let your palm gatherer or doctor know right away. Never drive with a cervical collar. Take extra care when riding in a car. Sleep with your neck brace on unless your doctor tells you not to. Last Reviewed Date 2019-10-10 Consumer Information Use and Disclaimer This generalized information is a limited summary of diagnosis, treatment, and/or medication information. It is not meant to be comprehensive and should be used as a tool to help the user understand and/or assess potential diagnostic and treatment options. It does NOT include all information about conditions, treatments, medications, side effects, or risks that may apply to a specific patient. Itis not intended to be medical advice or a substitute for the medical advice, diagnosis, or treatment of a health care provider based on the health care provider's examination and assessment of a patient???s specific and unique circumstances. Patients must speak with a health care provider for complete information about their health, medical questions, and treatment options, including any risks orbenefits regarding use of medications. This information does not endorse any treatments or medications as safe, effective, or approved for treating a specific patient. [employer] and its affiliates disclaim any warranty or liability relating to this information or the use thereof. The use of this information is governed by the Terms of Use, available at https://www.[employer]/en/know/vtqjbyfb-fwhpwyvxegbwe-ukwpx Copyright Copyright ?? 2022 [employer] and its affiliates and/or licensors. All rights reserved. The [facility] can be reached at If you would like to leave feedback for [facility] Team please scan the QR Code: SMOKER SMOKER SMOKER SMOKER SMOKER * Attachments The following attachments cannot be sent through Care Everywhere. * Cervical collars for adults (Greek) documented in this encounter Medications at Time of Discharge acetaminophen 325 MG tablet 12/24/2018 amiodarone 200 MG tablet TAKE EVERY THIRD DAY ARIPiprazole (ABILIFY) 5 MG tablet Take 1 tablet (5 mg total) by mouth daily. cefdinir (OMNICEF) 300 MG Cap capsule Take 1 capsule (300 mg total) by mouth 2 (two) times daily. cyclobenzaprine (FLEXERIL) 10 MG tablet Take 1 tablet (10 mg total) by mouth 3 (three) times daily. docusate sodium 100 MG capsule 0 10/21/2018 DULoxetine (CYMBALTA) 60 MG capsule Take 1 capsule (60 mg total) by mouth daily. ELIQUIS 2.5 MG tablet 04/07/2019 escitalopram (LEXAPRO) 10 MG tablet Take 1 tablet (10 mg total) by mouth daily. ferrous sulfate, 65 mg elemental, 325 (65 FE) MG tablet Take by mouth 2 (two) times daily. 11/29/2017 gabapentin 100 MG capsule Take 1 capsule (100 mg total) by mouth 3 (three) times daily. 20 capsule 10/15/[address] [facility] ASPIRIN ADULT LOW ST 81 MG chewable tablet 01/11/2019 lactulose (CEPHULAC) 20 g packet Take 1 packet (20 g total) by mouth nightly at bedtime. lidocaine 4 % patch Place 1 patch onto the skin daily. Remove & Discard patch within 12 hours or as directed by MD Verma patch 02/08/2024 lorazepam (ATIVAN) 0.5 MG tablet Take 1 tablet (0.5 mg total) by mouth 2 (two) times daily. 10 tablet 10/15/2018 MAGNESIUM-OXIDE 400 (241.3 Mg) MG tablet 04/07/2019 metoprolol succinate 50 MG 24 hr tablet Take 0.5 tablets (25 mg total) by mouth daily. 30 tablet 12 01/21/2018 ondansetron (ZOFRAN) 4 MG tablet Take 1 tablet (4 mg total) by mouth every 6 (six) hours as needed for Nausea. oxybutynin (DITROPAN) 5 MG tablet Take 0.5 tablets (2.5 mg total) by mouth 2 (two) times daily. oxyCODONE-acetami nophen (PERCOCET) 10-325 MG tablet Take 1 tablet by mouth every 4 (four) hours as needed for Pain. pantoprazole EC (PROTONIX) 40 MG tablet Take 1 tablet (40 mg total) by mouth daily. Polyethylene Glycol 3350 (PEG 3350) Powder 12/24/2018 senna-docusate (SENOKOT-S) 8.6-50 MG tablet Take 1 tablet by mouth as needed for Constipation. 02/07/2024 sucralfate 1 G tablet 04/28/2019 SUMAtriptan (IMITREX) 50 MG tablet Take 1 tablet (50 mg total) by mouth daily as needed for Migraine. 12/09/2017 documented as of this encounter Progress Notes * Meño Calvo - 02/08/2024 8:45 AM CST Transport arranged with [facility] going to [facility] at 1015 PCS in pt blue chart folder LIA Beavers notified SMOKER * Ruthann Mcallister RN - 02/08/2024 8:32 AM CST 02/08/24 0831 Interdisciplinary Group Conference Team Members Present Case/Care management;Nursing Patient Current Status Paient current status Inpatient Barriers to Discharge Inpatient Review Barriers to Discharge Inpatient No Barrier- Medical Milestone in Process;Other (Comment) No Barrier- Medical Milestone in Process follow up Medically stable for d/c. Other follow up (Comment) [facility] tranport canceled at the last minute yesterday. Patient expects to be discharged to Patient expects to be discharged to: Swing bed ([facility] francisco Booth. Nurse to Nurse: [phone] JALEN Judge called and left a VM. [facility] will transport, filler picker at 1015. SMOKER * Melba Burkett NP - 02/07/2024 4:40 PM CST Images from the original note were not included. TRAUMA PROGRESS NOTE Melba Burkett NP, 02/07/2024, 5:26 PM REGIONAL LEVEL 1 TRAUMA CENTER ACUTE CARE SURGERY SERVICE: EMERGENCY SURGERY, TRAUMA, SURGICAL CRITICAL CARE [address] [place] [id number] TO CONTACT PROVIDERS: Trauma Surgeon/Critical Care Fans Clerk MD: [id number] Emergency Surgery MD: [id number] Advanced Practice Provider - Trauma: [id number] Advanced Practice Provider - Emergency Surgery [id number] Name: Emerald Reeves Date of : 1940 Room/Bed: [address] [place] [address] Date: 02/07/2024 Time: 5:26 PM CHIEF COMPLAINT: I'm tired ASSESSMENT: 83-year-old female who presents with Fall PLAN: #C2 fracture Ortho spine, Dr. Jolly No surgical intervention at this time Maintain Cervical collar and provide following care: Change cervical collar pads daily Wash skin under pads daily Assess for skin break down daily Strict C-collar precautions when C-collar is removed for the above Perform neuro checks before and after Follow-up as outpatient 1 week Found without her [place] collar this morning and it was in her bag at the bedside - notified RN immediately and replaced this. Educated patient and she is willing to continue to wear it. Denies cervical neck pain. #Right proximal radius fracture Ortho surgery, Dr. Pryor No surgical intervention at this time RUE NWB + sling OK for gentle ROM of elbow Ice + elevate as needed Follow-up as outpatient 2 weeks #Delirium Disoriented, confused this morning Tele sitter for safety Promote Sleep Wake Cycle: Lights on 0700 to 1900 Off [id number] OOB Up in chair TID for meals if able Frequent reorientation Calendar and clock in view Ensure patient has hearing / visual aides if applicable Cluster care at night Allow to sleep with minimal disruption as able VS, intake & output, assessments Q8H (0600, 1400, 2200) General Trauma Care Pain control Gabapentin 100mg TID Lidocaine patch Tylenol Q6H PRN moderate pain [place] 5-325mg Q6H PRN severe Ice + elevate DVT ppx: SCDs + Eliquis (home medication) Nutrition: General Fluids: Not indicated PRN antiemetics: Zofran Bowel regimen: Senna Last BM 02/06 GI ppx: SQL DATA ARCHITECT Pepcid Pulmonary hygiene: IS q1H while awake Supplemental O2 Required: No Activity: As tolerated with RUE in sling NWB + [place] J at all times PT/OT: Ordered Electrolytes: Monitor Electrolytes and replace PRN Labs: Stable, holiday L/D/A: pIV Home medications: Resumed appropriate medications on 02/05 Tertiary survey completed: 02/05 with no new or worsening injury Problem list updated CODE: DNR Disposition: Social work/case management for discharge/transfer dispostion, Disposition under consideration per patient assessment, Continue to re-assess. LIA Beavers, notified me that [facility] can take her today at 1301. Per LIA note at 1310 [facility] was supposed to transport and pickup at 6pm. Discharge was ready by 1335. However, received doc halo from Ruthann at 1632 that transport cancelled and she could not find a ride anymore. I attempted to call all 3 family members listed in patient's chart multiple times with no answer. Per Ruthann's doc halo, We have to wait until tomorrow am . Akosua HOUGH already completed doc to doc who previously accepted her back to the facility on 02/04. Patient continues to be medically stable for discharge as of 02/04. SUBJECTIVE: No significant overnight events noted, appears comfortable. Reports I'm tired, I'll get up later when asked how she is feeling. +Flatus, +OOB yesterday, +Free void, denies pain, -Nausea, -Vomiting,-Fever. Altered mental status continues however oriented to self and situation this morning. Requiring Tele sitter for safety however pleasantly confused and redirectable. Denies headache, dizziness, vision changes, chest pain, SOB, N/V/D, and numbness/tingling to extremities. Significant Interval History: NAEO. CURRENT MEDS: Scheduled Meds: amiodarone 200 mg Oral Q72H apixaban 2.5 mg Oral BID ARIPiprazole 5 mg Oral Daily citalopram 10 mg Oral Daily DULoxetine 60 mg Oral Daily famotidine 40 mg Oral Daily gabapentin 100 mg Oral TID lidocaine 1 patch Transdermal Q24H melatonin 3 mg Oral Nightly at bedtime metoprolol succinate ER 25 mg Oral Daily senna-docusate 1 tablet Oral BID solifenacin 5 mg Oral Daily Continuous Infusions: PRN Meds:acetaminophen, HYDROcodone-acetaminophen, ondansetron REVIEW OF SYSTEMS: A 12 point comprehensive review of systems was otherwise negative. OBJECTIVE: Vital Signs Last 24 Hours: Temp: [97.9 ??F (36.6 ??C)-98.6 ??F (37 ??C)] 98.6 ??F (37 ??C) Pulse: [87-90] 90 Resp: [20] 20 BP: (134-146)/(62-64) 134/64 Lines, Drains, Tubes: Output by Drain (mL) 02/05/24 0700 - 02/05/24 1459 02/05/24 1500 - 02/05/24 2259 02/05/24 2300 - 02/06/24 0659 02/06/24 0700 - 02/06/24 1459 02/06/24 1500 - 02/06/24 2259 02/06/24 2300 - 02/07/24 0659 02/07/24 0700 - 02/07/24 1459 02/07/24 1500 - 02/07/24 1726 Patient has no LDAs of requested type attached. I/O totals for the last 24 hours: Intake/Output Summary (Last 24 hours) at 02/07/2024 1726 Last data filed at 02/06/2024 1800 Gross per 24 hour Intake 50 ml Output -- Net 50 ml PHYSICAL EXAM: General appearance: Pleasant, elderly female side-lying in bed, NAD Neurological: Wakes to voice, oriented to person and situation, disoriented to time and place, ableto be re-oriented and redirectable, following commands Eyes: Tracking without difficulty, extra-ocular muscles intact Mouth: Mucous membranes moist and pink Neck: Trachea midline, Symmetric, C collar found off and in bedside bag Chest: No dyspnea or respiratory distress noted, sufficient air movement, broadly clear, Clear, no wheezes, rales or rhonchi, symmetric air entry Heart: S1 and S2 normal, normal rate Abdomen: Soft, nontender, nondistended : Freely voiding Back exam: Active ROM without pain, soft tissue normal, no pain to spine with palpation Musculoskeletal: SHAFFER spontaneously and purposefully with sensation intact, RUE in sling and elevated, equal hand grasps, radial pulses 2+, denies numbness / tingling Skin: Warm and dry Psychiatric: Mood and affect appropriate, pleasant and cooperative LABS: Recent Labs Lab 02/05/24 0430 02/06/24 0833 02/07/24 1006 WBC 8.51 11.86* 11.37* HGB 9.2* 10.6* 11.8* HCT 28.2* 32.2* 35.2* PLT 236 286 324 NA 132* 135* 136 K 3.6 3.1* 3.9 CL 102 102 106 CO2 25.1 23.7 23.4 AGAP 4.9 9.3 6.6 BUN 17 13 22* CR 0.77 0.55 0.70 GLU 137* 115* 133* CA 8.8 8.9 8.9 MAGNESIUM 2.4 -- -- PHOS 2.9 -- -- No results found for: PH , PCO2 , PO2 , L1DBGAOKNLFP , BICARBWB , BASEDEFICIT , BASEEXCESS No results for input(s): ABORH in the last 168 hours. No results for input(s): CKTOTAL in the last 168 hours. CULTURES & SENSITIVITIES: No results found for this visit on 02/05/24 (from the past 2 weeks). No results found for this visit on 02/05/24 (from the past 2 weeks). PATHOLOGY: * Cannot find OR log * IMAGING: Radiology Results (Last 30 days) 02/05/24 0138 XR FOREARM RT 2V Final result Impression: IMPRESSION: Degenerative changes without plain radiographic evidence of discrete elbow fracture. Referred By: PROVIDER NON-STAFF Interpreted By: Memo Rosario MD, 02/05/2024 2:08 AM 02/05/24 0120 XR SHOULDER LT 3V Final result Impression: IMPRESSION: See separate chest radiograph dictation for the lung findings with degenerative changes in the shoulder and no acute bony injury or malalignment seen Referred By: PROVIDER NON-STAFF Interpreted By: Memo Rosario MD, 02/05/2024 2:13 AM 02/05/24 0120 XR KNEE LT 2V Final result Impression: IMPRESSION: Postsurgical changes without evidence of acute bony injury or malalignment Referred By: PROVIDER NON-STAFF Interpreted By: Memo Rosario MD, 02/05/2024 2:12 AM Vitals, I/Os, Labs, and most recent Imaging reviewed. Health Informatics Instructor notes/recommendations reviewed. Case was discussed w/ the patient All questions were answered and concerns were addressed. Parts of this note may have been brought forward from a previous note. I have seen and examined this patient today and changes were made to my documentation as appropriate. Melba Burkett APRN, NP [facility] & Acute Care Surgery Ext. [phone] Cosigned by Len Perry DO at 02/15/2024 7:48 AM HAM SMOKER SMOKER SMOKER * Ira Calderón RN - 02/07/2024 2:04 PM CST Problem: Discharge Planning Goal: Knowledge of discharge instructions Outcome: Adequate for Discharge Problem: Pain control/comfort Goal: Promote pain control/comfort Outcome: Adequate for Discharge Problem: Skin integrity, Impaired-wound Goal: Absence of new skin breakdown Outcome: Adequate for Discharge Goal: Evidence of wound healing Outcome: Adequate for Discharge Problem: Skin integrity, Impaired-pressure injury/ulcer Goal: Absence of new skin breakdown Outcome: Adequate for Discharge Goal: Evidence of pressure injury/ulcer healing Outcome: Adequate for Discharge Problem: Skin integrity, at risk Goal: Absence of new skin breakdown Outcome: Adequate for Discharge Problem: Moisture associated skin impairment Goal: Reduce moisture exposure Outcome: Adequate for Discharge Goal: Evidence of wound healing Outcome: Adequate for Discharge Goal: Evidence of pressure injury/ulcer healing Outcome: Adequate for Discharge Goal: Absence of new skin breakdown Outcome: Adequate for Discharge Problem: Reduced risk for falls/injury Goal: Reduced Risk for Falls/Injury Outcome: Adequate for Discharge Goal: Reduced Risk of Confusion (Acute vs Chronic) Outcome: Adequate for Discharge Goal: Reduced Risk of Symptomatic Depression Outcome: Adequate for Discharge Goal: Reduced Risk of Altered Elimination Outcome: Adequate for Discharge Goal: Reduced Risk of Dizziness/Vertigo/Balance Outcome: Adequate for Discharge Goal: Reduced Risk of Polypharmacy Outcome: Adequate for Discharge SMOKER * Ruthann Mcallister RN - 02/07/2024 1:10 PM CST 02/07/24 1310 Interdisciplinary Group Conference Team Members Present Case/Care management;Nursing Patient Current Status Paient current status Inpatient Barriers to Discharge Inpatient Review Barriers to Discharge Inpatient No Barrier- Medical Milestone in Process No Barrier- Medical Milestone in Process follow up Medically stable for d/c. Patient expects to be discharged to Patient expects to be discharged to: [facility] ([facility]) BRUNO Mcelroy Liaison updated. Nurse to Nurse: [phone] Rubber Process Hand called lazaro Judge and left a VM. [facility] will transport, filler picker at 6pm SMOKER * Tri Rosas RN - 02/06/2024 1:28 PM CST Problem: Discharge Planning Goal: Knowledge of discharge instructions Outcome: Progressing Problem: Pain control/comfort Goal: Promote pain control/comfort Outcome: Progressing Problem: Skin integrity, Impaired-wound Goal: Absence of new skin breakdown Outcome: Progressing Goal: Evidence of wound healing Outcome: Progressing Problem: Skin integrity, Impaired-pressure injury/ulcer Goal: Absence of new skin breakdown Outcome: Progressing Goal: Evidence of pressure injury/ulcer healing Outcome: Progressing Problem: Skin integrity, at risk Goal: Absence of new skin breakdown Outcome: Progressing SMOKER * Anne-Marie Clarke OT - 02/06/2024 10:56 AM CSTSummary: OT Initial Evaluation OT Initial Evaluation Discharge Recommendation: Swing bed unit DME equipment recommendation: none- has 2ww at home Activity Recommendation for technical support intern: up with 1, NWB RUE, spinal precautions; Sling on RUE and [place] J 02/06/24 1300 Therapy Visit OT Evaluation Completed on 02/06/24 Reason for admission 83-year-old female with a past medical history of dementia, Afibrillation, CAD, depression, GERD, HLD, mitral valve disorder who presented as a trauma transfer after sustaining afall. Patient was reportedly residing at a swing bed facility when she sustained an unwitnessed fall. Imaging was performed at an outside facility which demonstrated a potential right radial head fracture and a potential C2 fracture. The patient was ultimately transferred to [facility] for evaluation by the trauma service who will manage no-op. NWB RUE in sling, ok to begin gentle ROM of right elbow. [place] J in place...orders to eval and treat with activity up with assist Ordering Provider EMILIA Reed Verified Two Patient Identifiers Yes Patient consents to therapy Yes Acute Inpatient OT Time Calculation OT Start Time 1056 OT Stop Time 1122 OT Time Calculation (min) 26 min Precautions Spine Precautions Bending;Lifting;Twisting (C-spine precautions) Weight Bearing Status NWB;RUE Neck Brace Applied Yes Arm Brace/Sling Applied Yes Brace/Sling Location/Type R UE sling General Precautions Bed Alarm;Fall Risk PPE Used Gloves Instructed on Precautions Yes;Needs reinforcement and education Other Tele Subjective Subjective Evaluation completed in room 1152. Pt and RN agreeable to OT evaluation. Pt supine in bed upon arrival with GRAYLING J not donned. OT assisted pt with donning [place] J and slinng on RUE. Prior Function PLOF Comments Per daughter: patient lives at assisted living at [facility] living and uses 2ww. Walks to meals. Has assist sometimes for meals and housework. Pt had recently been at [facility] swing bed secondary to weakness and fell while there. Pt is confused. Pt reports that she does not require additional assistance with ADLs. Pain Pain Yes Pain Score 5 Location Posterior neck Interventions Re-direction;Relaxation;Re-positioning Activity Tolerance Endurance Quality Fair Limiting Factors to Endurance Acute deconditioning;Weakness;Pain;Fatigue;Agitation Vision - Complex Assessment Additional Comments No acute vision changes reported. Cognition Overall Cognitive Status Impaired Arousal/Alertness Delayed responses to stimuli Attention Span Attends with cues to redirect Memory Decreased recall of precautions Orientation Level Oriented to place;Oriented to time;Oriented to person Following Commands Follows multistep commands with repetition Safety Judgment Decreased awareness of need for safety Awareness of Errors Assistance required to identify errors made Deficits Decreased awareness of deficits Problem Solving Assistance required to identify errors made Comments Pt is alert and oriented x3 this date. Pt very confused and easily agitated throughout session requiring maximal cues and redirection throughout mobility. Pt also requires increased assistance and cues to maintain spinal and WB precautions. Pt perservates on brace/sling position and pain. Initiation Cues to initiate tasks Cognition Complex Affect Irritable Overall Extremity Assessment Upper Extremity WFL BUE for strength and ROM RUE Assessment RUE Comment Gentle passive ROM in RUE WFL. elbow flexion and extension. No signs of pain or discomfort with movement Hand Function Hand Dominance Right Gross Grasp Right;Left;Functional Coordination Functional Sensation Light Touch No apparent deficits ADL Grooming Comment Observed pt wiping nose and mouth with set-up requiring no physical assistance UE Dressing Comment Donned RUE sling with maximal assistance. LE Dressing Assistance Sitting at EOB;Maximal LE Dressing Deficit Don/doff R sock;Don/doff L sock LE Dressing Comment Instructed on figure 4 techique to darnell/doff socks, however pt with limited sitting balance requiring assistance. Additional Comments Pt performance with ADLs limited by impaired cognition and pain. Bed Mobility Supine to Sit Min assist to left (with maximal cueing for technique, task sequencing and continuation.) Other (Comment) Exited bed to left side to prevent WB on RUE. Functional Transfers Sit to Stand Min assist (with hand held assist with L hand) Bed to Chair JUDITH (pt refused transfer to recliner from EOB) Toilet Transfers Not tested (Pt refused) Functional Mobility Pt able to take ~4 lateral steps to the left towards HOB. Pt declined trialing further ambulation this date. Balance Sitting - Static SBA Sitting - Dynamic CGA Standing - Static Min Assist (Support of LUE) Standing - Dynamic Min Assist (~4 steps to the L to adjust position before sititng back down in bed) Other (Comment) LUE hand-held assist provided for increased stabiity in standing. Assessment Occupational Profile and History Complexity Moderate (Expanded) Performance Skills Deficits Bathing/showering;Dressing;Functional mobility;Toileting;Personal hygiene and grooming;Education;Safety and emergency maintenance Performance Deficit Level High (5 or more deficits) Clinical Decision Making Moderate (min/mod modifications) Complexity Level of Evaluation Moderate Prognosis Good;Fair OT Assess/Eval Other (Comment) Pt is a 83-year-old female with a past medical history of dementia, Afibrillation, CAD, depression, GERD, HLD, mitral valve disorder who presented as a trauma transfer after sustaining a fall. Pt completed bed mobility and sit>stand from EOB with minimal assistance. Pt displays a decrease in endurance, strength, and congition. Pt was irritable during evaluation which hindered her ability to fully participate in tasks of evaluation. Pt would benefit from continued skilled occupational therapy serivces while inpatient. Recommend for pt to return to swing bed toaddress deficits. Patient/Family Training Other (Comment) pt educated in spinal precautions, NWB status in RUE, and use of [place] J collar andsling Discharge Recommendation PT Recommendation Swing bed unit PT Equipment Recommended Currently has DME in Place Plan OT Treatment plan/Intervention Therapeutic activities, pt/family training, safety, self-care training, functional mobility Progress Slow progress, cognitive deficits OT Frequency 5 times/week OT - Next Appointment 02/06/24 If this is the last treatment note, it will serve as the discharge summary Yes End of Session End of Session Safety Bed alarm set/activated;Call light within reach;Nursing aware of session End of Session Comment Pt comfortable in bed; call light within reach; nursing aware of session Education: Primary Learners Name: Emerald Reeves Primary Language of learner: Greek Patient was educated on precautions ADLs Balance Sling and GRAYLING J safety. Education was completed one to one verbal this date. Preference of learning new concepts one to one verbal Barriers to education this date were confusion agitation pain cognition. Response to education this date needs reinforcement needs assistance. The below POC to be followed until 02/20/24 at that time POC will be re-assessed to ensure patient is making appropriate progression. Pt will complete dressing with Modified Turner sitting EOB or in chair to increase safety andindependence with ADLs. Pt will complete all grooming and self-feeding with Modified Turner to increased safety and independence with ADLs. Pt will complete ADLs at sink with Modified Turner to increase independence with ADLs. Pt will complete toileting hygiene and clothing management with Modified Turner to increase safety and independence with ADLs. Pt will complete bed mobility with Independent with HOB flat to increase safety and independence with functional transfers. Pt will complete transfers all surfaces to/from all surfaces with Modified Turner using leastrestrictive device to increase functional mobility and transfers. Pt will participate within skilled therapy services for 20-30 minutes with 1-2 rest breaks to increase independence with ADLs and functional transfers. Pt will increase dynamic standing balance standing at sink/dressing completing ADLs with Modified Turner with least restrictive device for 10-20 minutes to increase safety and independence withADLs and functional transfers. Pt will follow spinal and weight bearing precautions with 1-2 verbal cuing to increase safety awareness and independence with ADLs and functional transfers. SMOKER SMOKER * Ciarra Valladares - 02/06/2024 10:32 AM CST Congregation Affiliation/Spiritual Background: Anabaptist Congregation/cultural considerations impacting medical care: Patient states having no catholic or cultural considerations impacting medical care at this time. Sonam community: [facility] [address], [place] Notification of sonam community desired: Yes Sacraments:Patient informed of the availability of the Sacraments of Communion, Anointing of the Sick, and Reconciliation. Patient informed of services available on TV. Communion Entered for Pao Goodwinthomas GARZON by Chaplain Kingsley SMOKER * Melba Burkett NP - 02/06/2024 8:11 AM CST Images from the original note were not included. TRAUMA PROGRESS NOTE Melba Burkett NP, 02/06/2024, 8:11 AM [facility] LEVEL 1 TRAUMA CENTER ACUTE CARE SURGERY SERVICE: EMERGENCY SURGERY, TRAUMA, SURGICAL CRITICAL CARE [address] [place] [address] TO CONTACT PROVIDERS: Trauma Surgeon/Critical Care Fans Clerk MD: [id number] Emergency Surgery MD: [id number] Advanced Practice Provider - Trauma: [id number] Advanced Practice Provider - Emergency Surgery [id number] Name: Emerald Reeves Date of : 1940 Room/Bed: [address] [place] [address] Date: 02/06/2024 Time: 8:11 AM CHIEF COMPLAINT: Tingling feet (resolved) ASSESSMENT: 83-year-old female who presents with Fall PLAN: #C2 fracture Ortho spine, Dr. Jolly No surgical intervention at this time Maintain Cervical collar and provide following care: Change cervical collar pads daily Wash skin under pads daily Assess for skin break down daily Strict C-collar precautions when C-collar is removed for the above Perform neuro checks before and after Follow-up as outpatient 1 week #Right proximal radius fracture Ortho surgery, Dr. Pryor No surgical intervention at this time RUE NWB + sling OK for gentle ROM of elbow Ice + elevate as needed Follow-up as outpatient 2 weeks #Delirium Disoriented, confused this morning Tele sitter for safety Promote Sleep Wake Cycle: Lights on 0700 to 1900 Off [id number] OOB Up in chair TID for meals if able Frequent reorientation Calendar and clock in view Ensure patient has hearing / visual aides if applicable Cluster care at night Allow to sleep with minimal disruption as able VS, intake & output, assessments Q8H (0600, 1400, 2200) General Trauma Care Pain control - restarted home pain regimen 02/05 Gabapentin 100mg TID Lidocaine patch Tylenol Q6H PRN moderate pain [place] 5-325mg Q6H PRN severe Ice + elevate DVT ppx: SCDs + Eliquis (home medication) Nutrition: General Fluids: Not indicated PRN antiemetics: Zofran Bowel regimen: Senna Last BM SQL DATA ARCHITECT GI ppx: SQL DATA ARCHITECT Pepcid Pulmonary hygiene: IS q1H while awake Supplemental O2 Required: No Activity: As tolerated with RUE in sling NWB + [place] J at all times PT/OT: Ordered Electrolytes: Monitor Electrolytes and replace PRN Labs: Ordered for AM L/D/A: pIV Home medications: Resumed appropriate medications on 02/05 Tertiary survey completed: 02/05 with no new or worsening injury Problem list updated CODE: DNR Disposition: Social work/case management for discharge/transfer dispostion, Disposition under consideration per patient assessment, Continue to re-assess. Patient is medically stable for discharge. Originally was to be discharged on 02/04 back to swing bed unit as [facility] therapy recommended this however therapy department at swing bed unit is not available until Wednesday to review their notes. Will plan to discharge 02/06. SUBJECTIVE: No significant overnight events noted, Comfortable, no complaints, -BM, +Flatus, -OOB, +Free void, Pain controlled, -Nausea, -Vomiting, -Fever, Disoriented, Altered mental status continues requiring Tele sitter. Originally was asking nursing who am I and why am I here . Currently denies pain, but reports having new tingling to her bilateral feet. Then reports that the tingling went away . Denies headache, dizziness, vision changes, chest pain, SOB, N/V/D, and numbness/tingling to extremities. Significant Interval History: NAEO. CURRENT MEDS: Scheduled Meds: apixaban 2.5 mg Oral BID DULoxetine 60 mg Oral Daily famotidine 40 mg Oral Daily lidocaine 1 patch Transdermal Q24H metoprolol succinate ER 25 mg Oral Daily senna-docusate 1 tablet Oral BID Continuous Infusions: PRN Meds:ondansetron REVIEW OF SYSTEMS: A 12 point comprehensive review of systems was otherwise negative. OBJECTIVE: Vital Signs Last 24 Hours: Temp: [98.8 ??F (37.1 ??C)] 98.8 ??F (37.1 ??C) Pulse: [94-100] 94 Resp: [18-20] 18 BP: (124-132)/(64-68) 132/68 Lines, Drains, Tubes: Output by Drain (mL) 02/04/24 0700 - 02/04/24 1459 02/04/24 1500 - 02/04/24 2259 02/04/24 2300 - 02/05/24 0659 02/05/24 0700 - 02/05/24 1459 02/05/24 1500 - 02/05/24 2259 02/05/24 2300 - 02/06/24 0659 02/06/24 0700 - 02/06/24 0811 Patient has no LDAs of requested type attached. I/O totals for the last 24 hours: No intake or output data in the 24 hours ending 02/06/24 0811 PHYSICAL EXAM: General appearance: Pleasant, elderly female sitting up in bed, NAD Neurological: Awake, disoriented, able to be re-oriented and will respond back with the correct answers, following commands Eyes: Tracking without difficulty, extra-ocular muscles intact Mouth: Mucous membranes moist and pink Neck: Trachea midline, Symmetric, C collar in place Chest: No dyspnea or respiratory distress noted, sufficient air movement, broadly clear, Clear, no wheezes, rales or rhonchi, symmetric air entry Heart: S1 and S2 normal, normal rate Abdomen: Soft, nontender, nondistended : Freely voiding Back exam: Active ROM without pain Musculoskeletal: SHAFFER spontaneously and purposefully with sensation intact, RUE in sling and elevated, equal hand grasps, radial pulses 2+, denies numbness / tingling Skin: Warm and dry Psychiatric: Mood and affect appropriate, pleasant and cooperative LABS: Recent Labs Lab 02/05/24 0430 WBC 8.51 HGB 9.2* HCT 28.2* PLT 236 NA 132* K 3.6 CL 102 CO2 25.1 AGAP 4.9 BUN 17 CR 0.77 GLU 137* CA 8.8 MAGNESIUM 2.4 PHOS 2.9 No results found for: PH , PCO2 , PO2 , [id number] , BICARBWB , BASEDEFICIT , BASEEXCESS No results for input(s): ABORH in the last 168 hours. No results for input(s): CKTOTAL in the last 168 hours. CULTURES & SENSITIVITIES: No results found for this visit on 02/05/24 (from the past 2 weeks). No results found for this visit on 02/05/24 (from the past 2 weeks). PATHOLOGY: * Cannot find OR log * IMAGING: Radiology Results (Last 30 days) 02/05/24 0138 XR FOREARM RT 2V Final result Impression: IMPRESSION: Degenerative changes without plain radiographic evidence of discrete elbow fracture. Referred By: PROVIDER NON-STAFF Interpreted By: Memo Rosario MD, 02/05/2024 2:08 AM 02/05/24 0120 XR SHOULDER LT 3V Final result Impression: IMPRESSION: See separate chest radiograph dictation for the lung findings with degenerative changes in the shoulder and no acute bony injury or malalignment seen Referred By: PROVIDER NON-STAFF Interpreted By: Memo Rosario MD, 02/05/2024 2:13 AM 02/05/24 0120 XR KNEE LT 2V Final result Impression: IMPRESSION: Postsurgical changes without evidence of acute bony injury or malalignment Referred By: PROVIDER NON-STAFF Interpreted By: Memo Rosario MD, 02/05/2024 2:12 AM Vitals, I/Os, Labs, and most recent Imaging reviewed. Health Informatics Instructor notes/recommendations reviewed. Case was discussed w/ the patient All questions were answered and concerns were addressed. Parts of this note may have been brought forward from a previous note. I have seen and examined this patient today and changes were made to my documentation as appropriate. Melba Burkett APRN, NP [facility] Trauma & Acute Care Surgery Ext. [phone] Cosigned by Maury Hillman MD at 02/10/2024 10:23 AM HAM SMOKER SMOKER SMOKER Associated attestation - Maury Hillman MD - 02/10/2024 10:23 AM HAM SMOKER I, MAURY HILLMAN MD, discussed the plan of care with JOANNA Adkins, who shared in this visit. I have reviewed the JOANNA's documentation and agree with the findings except as I have documented. Ipersonally spent 0 minutes, caring for this patient. MAURY HILLMAN MD * Melba Burkett NP - 02/06/2024 8:11 AM CST Images from the original note were not included. TRAUMA TERTIARY SURVEY Melba Burkett NP, 02/06/2024, 8:11 AM [facility] ACUTE CARE SURGERY SERVICE: EMERGENCY SURGERY, TRAUMA, SURGICAL CRITICAL CARE [address] [place], [place] [id number] TO CONTACT PROVIDERS: Trauma Surgeon/Critical Care Fans Clerk MD: [id number] Emergency Surgery MD: [id number] Advanced Practice Provider - Trauma: [id number] Advanced Practice Provider - Emergency Surgery [id number] Name: Emerald Reeves Date of : 1940 Room/Bed: [address] [place] [address] Date: 02/06/2024 Time: 8:11 AM Mechanism of Injury: Fall CHIEF COMPLAINT: Tingling feet (resolved) List all new injuries indentified in this survey: None Plan for new injuries found: None Melba Burkett APRN, NP [facility] Trauma & Acute Care Surgery Ext. [phone] Cosigned by Maury Hillman MD at 02/06/2024 2:00 PM HAM SMOKER SMOKER SMOKER SMOKER * Luis Garcia - 02/05/2024 7:45 PM CDT Patient assessed for emotional/spiritual needs and well-being, role of Spiritual Care explained. Congregation Affiliation/Spiritual Background: Anabaptist Sonam community: [facility] AND [facility] [address], [place], [place] Notification of sonam community desired: Yes Needs identified: Female staff only Spiritual Care Wiper Blender, . Luis Garcia MDiv 02/05/2024, 9:16 PM * SUZIE Downs - 02/05/2024 7:32 PM CDT Images from the original note were not included. TRAUMA PROGRESS NOTE SUZIE DOWNS, 02/05/2024, 7:32 PM [facility] LEVEL 1 TRAUMA CENTER ACUTE CARE SURGERY SERVICE: EMERGENCY SURGERY, TRAUMA, SURGICAL CRITICAL CARE [address] [place] [id number] TO CONTACT PROVIDERS: Trauma Surgeon/Critical Care Fans Clerk MD: [id number] Emergency Surgery MD: [id number] Advanced Practice Provider - Trauma: [id number] Advanced Practice Provider - Emergency Surgery [id number] Name: Emerald Reeves Date of : 1940 Room/Bed: [address] [place] [address] Date: 02/05/2024 Time: 7:32 PM CHIEF COMPLAINT: wants to go home ASSESSMENT: 83-year-old female who presents with Fall PLAN: right radial head fracture Orthopedic surgery Dr Pryor No surgical intervention NWB right and sling at all times ok to begin gentle ROM of right elbow C2fx Ortho spine Dr Riddhi Delacruz at all times F/U in office in one week. General trauma care CODE: DNR Disposition: Social work/case management for discharge/transfer dispostion, Disposition under consideration per patient assessment, Continue to re-assess. Pt was set up for D/C back to [facility]. Transportation was arranged for 1600 today. I spoke to Helena Wynne MUSIC GRAPHER on 2nd floor at [facility] who accepted the patient back. I received a call stating that they no longer could accept her at this time due to the need for [place] therapy department to review the therapy notes from [facility]. There will be no one available to review notes until Wednesday. Patient is medically stable for discharge. Therapy recommend [facility] SUBJECTIVE: Wants to discharge back to [facility]. She is agreeable to wearing c collar if it will help her get discharged faster. She is intermittently confused with times of clarity. She had clear liquids this morning and is looking forward to eating real food. She reports some pain in her right arm. Denies pain inher neck. Denies CP, SOB, N/V, N/T, weakness, visual changes Significant Interval History: NAEO. CURRENT MEDS: Scheduled Meds: apixaban 2.5 mg Oral BID DULoxetine 60 mg Oral Daily famotidine 40 mg Oral Daily lidocaine 1 patch Transdermal Q24H metoprolol succinate ER 25 mg Oral Daily phosphorus 500 mg Oral Q4H senna-docusate 1 tablet Oral BID Continuous Infusions: PRN Meds:ondansetron REVIEW OF SYSTEMS: Pertinent items are noted in HPI. A 12 point comprehensive review of systems was otherwise negative. OBJECTIVE: Vital Signs Last 24 Hours: Temp: [98.4 ??F (36.9 ??C)-98.8 ??F (37.1 ??C)] 98.8 ??F (37.1 ??C) Pulse: [100-103] 100 Resp: [20-23] 20 BP: (124-151)/(51-68) 124/64 Lines, Drains, Tubes: Output by Drain (mL) 02/03/24 0700 - 02/03/24 1459 02/03/24 1500 - 02/03/24 2259 02/03/24 2300 - 02/04/24 0659 02/04/24 0700 - 02/04/24 1459 02/04/24 1500 - 02/04/24 2259 02/04/24 2300 - 02/05/24 0659 02/05/24 0700 - 02/05/24 1459 02/05/24 1500 - 02/05/241931 Patient has no LDAs of requested type attached. I/O totals for the last 24 hours: Intake/Output Summary (Last 24 hours) at 02/05/20241931 Last data filed at 02/05/2024 0659 Gross per 24 hour Intake -- Output 800 ml Net -800 ml PHYSICAL EXAM: General appearance: Lying in bed. NAD, appears comfortable Neurological: appropriate, and conversant, Alert and oriented Xs 2, Following commands Eyes: Tracking without difficulty, extra-ocular muscles intact Mouth: Mucous membranes moist and pink Neck: Trachea midline, Symmetric. C collar in place Chest: No dyspnea or respiratory distress noted, sufficient air movement, broadly clear, Clear, no wheezes, rales or rhonchi, symmetric air entry Heart: S1 and S2 normal, normal rate Abdomen: soft, nontender, nondistended : indwelling acuña in place with pink tinged urine adequate output Back exam: no tenderness, soft tissues broadly normal Musculoskeletal: SHAFFER spontaneously and purposefully with sensation intact. Strength decreased to right upper extremity. Sling to RUE Skin: warm and dry Psychiatric: Mood and affect appropriate, alert, pleasant and cooperative LABS: Recent Labs Lab 02/05/24 0430 WBC 8.51 HGB 9.2* HCT 28.2* PLT 236 NA 132* K 3.6 CL 102 CO2 25.1 AGAP 4.9 BUN 17 CR 0.77 GLU 137* CA 8.8 MAGNESIUM 2.4 PHOS 2.9 No results found for: PH , PCO2 , PO2 , [id number] , BICARBWB , BASEDEFICIT , BASEEXCESS No results for input(s): ABORH in the last 168 hours. No results for input(s): CKTOTAL in the last 168 hours. CULTURES & SENSITIVITIES: No results found for this visit on 02/05/24 (from the past 2 weeks). No results found for this visit on 02/05/24 (from the past 2 weeks). PATHOLOGY: * Cannot find OR log * IMAGING: Radiology Results (Last 30 days) 02/05/24 0138 XR FOREARM RT 2V Final result Impression: IMPRESSION: Degenerative changes without plain radiographic evidence of discrete elbow fracture. Referred By: PROVIDER NON-STAFF Interpreted By: Memo Rosario MD, 02/05/2024 2:08 AM 02/05/24 0120 XR SHOULDER LT 3V Final result Impression: IMPRESSION: See separate chest radiograph dictation for the lung findings with degenerative changes in the shoulder and no acute bony injury or malalignment seen Referred By: PROVIDER NON-STAFF Interpreted By: Memo Rosario MD, 02/05/2024 2:13 AM 02/05/24 0120 XR KNEE LT 2V Final result Impression: IMPRESSION: Postsurgical changes without evidence of acute bony injury or malalignment Referred By: PROVIDER NON-STAFF Interpreted By: Memo Rosario MD, 02/05/2024 2:12 AM Cosigned by Maury Hillman MD at 02/06/2024 2:02 PM HAM SMOKER SMOKER Associated attestation - Maury Hillman MD - 02/06/2024 2:02 PM HAM SMOKER I, MAURY HILLMAN MD, discussed the plan of care with JOANNA Bhandari, who shared in this visit. I have reviewed the JOANNA's documentation and agree with the findings except as I have documented. I personally spent 0 minutes, caring for this patient. Will review her home meds and restart hansel MAURY HILLMAN MD * Gia Borrero RN - 02/05/2024 3:12 PM CDT Pt to DC to [facility] Nurse to Nurse: [phone] Transportation: DMT @ 1600 * Gia Borrero RN - 02/05/2024 12:40 PM CDT Libby Ramirez MUSIC GRAPHER with trauma spoke with rfp writer regarding pt ready for DC and is from [facility]. 1231: Rubber [employer] Hand called [facility] to see if pt could DC back. Nurse states that w/e admissions have to go through CM and they don't have w/e CM coverage there but she provided a number to a [facility]. 1235: [employer] Hand called number provided to [facility]. [facility] stated that she was unsure of how procedure is. She is paging a sugar refinery supervisor. Once she has an answer, she will call rfp writer. Rubber Process Hand updated Libby with trauma. Rubber Process Hand called [facility] to f/u on fax that was sent. Rubber Process Hand left a message for Cecy to return call. Cecy returned call. She states that they have not received any information. Fax number was confirmed and is correct. Rubber Process Hand printed off notes and labs and faxed them. On cover sheet, rfp writer gave hospital number and Libby with trauma's ext. Per Libby with trauma, [facility] is able to accept. Libby requested transport be arranged. Rubber Process Hand secured transport and called [place] to update. Rubber Process Hand spoke with Monet Healy stated that pt has not been accepted and transportation has to be arranged as they are not a SNF. Rubber Process Hand explained that transport has been arranged. She then had CN speak with rfp writer. MERYL, Cecy, states that Helena Graham has to approve. Rubber Process Hand stated that Helena did approve. She then stated that Helena needs PT to review pt. Rubber Process Hand updated Libby @ trauma and patient's nurse (Calderon). * Neida Haynes, PT - 02/05/2024 12:29 PM CDT PT Initial Evaluation Discharge Recommendation: Swing bed unit DME equipment recommendation: none- has 2ww at home Activity Recommendation for technical support intern: up with 1 mod A, NWB RUE, spinal precautions. Sling on RUE and [place] J Assessment: Patient is 83-year-old female admitted for fall with R radial head fx now in sling and NWB and C2 fracture in [place] J. The patient presents with confusion, decreased safety awareness, LE weakness, impaired balance and inability to use RUE due to NWB orders. These impairments are affecting her safety with functional mobility and she is requiring increased assist for bed mobility, transfers and is unable to ambulate safely at this time as she cannot use a 2ww and is unsteady without UE assist. Prior to admit, pt was living at an assisted living facility using a 2ww and ambulating [facility] dining [place]. Patient would continue to benefit from skilled physical therapy to improve endurance, strength and balance to improve safety and independence with functional mobility. 02/05/24 0700 Therapy Visit Ordering Provider EMILIA Reed PT Evaluation Completed on 02/05/24 Subjective Pt and RN agreeable to therapy eval. Libby from trauma in room and put [place] J and sling back on patient. Reason for admission 83-year-old female with a past medical history of dementia, Afibrillation, CAD, depression, GERD, HLD, mitral valve disorder who presented as a trauma transfer after sustaining afall. Patient was reportedly residing at a swing bed facility when she sustained an unwitnessed fall. Imaging was performed at an outside facility which demonstrated a potential right radial head fracture and a potential C2 fracture. The patient was ultimately transferred to [facility] for evaluation by the trauma service who will manage no-op. NWB RUE in sling, ok to begin gentle ROM of right elbow. [place] J in place...orders to eval and treat with activity up with assist Verified Two Patient Identifiers Yes Patient consents to therapy Yes Acute Inpatient PT Time Calculation PT Start Time 1141 PT Stop Time 1210 PT Time Calculation (min) 29 min Precautions Spine Precautions Bending;Lifting;Twisting Weight Bearing Status NWB;RUE Neck Brace Applied Yes Arm Brace/Sling Applied Yes Brace/Sling Location/Type R UE sling General Precautions Bed Alarm;Fall Risk (tele, catheter) PPE Used Gloves Instructed on Precautions Yes;Needs reinforcement and education Prior Function PLOF Comments Per daughter: patient lives at assisted living at [facility] living and uses 2ww. Walks to meals. Has assist sometimes for meals and housework. Pt had recently been at [facility] swing bed secondary to weakness and fell while there. Pt is confused. Pain Pain Patient does not offer or c/o pain Activity Tolerance Limiting Factors to Endurance Acute deconditioning;Weakness (confusion) Cognition Overall Cognitive Status Impaired Arousal/Alertness Delayed responses to stimuli Attention Span Attends with cues to redirect Memory Decreased recall of precautions Orientation Level Oriented to person Following Commands Follows multistep commands with repetition Safety Judgment Decreased awareness of need for safety Awareness of Errors Assistance required to identify errors made Deficits Decreased awareness of deficits Problem Solving Assistance required to identify errors made Motor Planning Impaired Initiation Cues to initiate tasks Overall Extremity Assessment Lower Extremity AROM BLE WFL. Strength assessed in sitting: hip flexion 4-/5, quads 4/5, ankle DF: 5/5 RUE Assessment RUE Comment in sling- no UE ROM tested Bed Mobility Supine to Sit Mod assist to left TRANSFERS Sit to Stand Mod assist Gait Gait Assistance Min assist Assistive Device None Distance Ambulated (ft) 3 ft Pattern Shuffle steps Other (Comment) unsteady with use of UE- cannot WB on RUE Balance Other (Comment) unsteady in standing without use of UE support Assessment Personal Factors/Comorbidities Impacting Care 3-4 personal factors/comorbidities Examination of Body Systems Moderate (3 or more Elements) Objectives of Body Systems Impaired bed mobility;Impaired transfers;Impaired ambulation;Impaired balance;Decreased LE strength;Decreased endurance;Decreased safe judgement;Decreased cognition;Decreased UE ROM Clinical Presentation of Patient Evolving and changing characteristics Complexity Level of Evaluation Moderate Prognosis Good Patient/Family Training Bed Mobility instructed in log roll Transfer Training instructed not to push with RUE Precautions instructed in spinal precautions and NWB RUE Other (Comment) ed in therapy POC Discharge Recommendation PT Recommendation Swing bed unit PT Equipment Recommended Currently has DME in Place Plan PT Treatments/Interventions Gait Training;Therapeutic Activities;Neuromuscular re-education Progress Slow progress, decreased activity tolerance PT Frequency 5 times/week PT - Next Appointment 02/05/24 If this is the last treatment note,it will serve as the discharge summary Yes End of Session End of Session Safety Bed alarm set/activated;Call light within reach;Nursing aware of session;Transfer status education ([place] J and sling on) The below POC to be followed until 02/19/24 at that time POC will be re-assessed to ensure patient is making appropriate progression. Pt. will be able to perform supine to/from sitting at EOB with Minimal assistance to improve mobility. Pt. will be able to perform sit to/from standing with CGA to improve independence. Pt. will be able to ambulate 50 feet with CGA to help improve strength and functional independence. Pt. will be able to maintain static sitting balance for 5-10 minutes with SBA to improve independence. Pt. will be able to maintain dynamic sitting balance on soft surface with SBA to improve functionalmobility. Pt. will be able to maintain static standing balance less than 5 minutes with SBA using to improve independence. Pt. will be able to maintain dynamic standing balance during side-stepping L/R and marching with CGA to improve functional mobility. Education: Primary Learners Name: Emerald Reeves Primary Language of learner: Greek Patient was educated on precautions transfers bed mobility equipment therapy plan gait safety joint protection ROM. Education was completed one to one verbal hands-on demonstration this date. Preference of learning new concepts one to one verbal hands-on demonstration Barriers to education this date were confusion. Response to education this date needs reinforcement needs follow up needs assistance. * Calderon Abdi RN - 02/05/2024 11:59 AM CDT Problem: Discharge Planning Goal: Knowledge of discharge instructions 02/05/2024 1158 by Calderon Abdi RN Outcome: Progressing 02/05/2024 1157 by Calderon Abdi RN Outcome: Progressing Problem: Pain control/comfort Goal: Promote pain control/comfort 02/05/2024 1158 by Calderon Abdi RN Outcome: Progressing 02/05/2024 1157 by Calderon Abdi RN Outcome: Progressing Problem: Skin integrity, Impaired-wound Goal: Absence of new skin breakdown 02/05/2024 1158 by Calderon Abdi RN Outcome: Progressing 02/05/2024 1157 by Calderon Abdi RN Outcome: Progressing Goal: Evidence of wound healing 02/05/2024 1158 by Calderon Abdi RN Outcome: Progressing 02/05/2024 1157 by Calderon Abdi RN Outcome: Progressing Problem: Skin integrity, Impaired-pressure injury/ulcer Goal: Absence of new skin breakdown 02/05/2024 1158 by Calderon Abdi RN Outcome: Progressing 02/05/2024 1157 by Calderon Abdi RN Outcome: Progressing Goal: Evidence of pressure injury/ulcer healing 02/05/2024 1158 by Calderon Abdi RN Outcome: Progressing 02/05/2024 1157 by Calderon Abdi RN Outcome: Progressing Problem: Skin integrity, at risk Goal: Absence of new skin breakdown 02/05/2024 1158 by Calderon Abdi RN Outcome: Progressing 02/05/2024 1157 by Calderon Abdi RN Outcome: Progressing Problem: Moisture associated skin impairment Goal: Reduce moisture exposure 02/05/2024 1158 by Calderon Abdi RN Outcome: Progressing 02/05/2024 1157 by Calderon Abdi RN Outcome: Progressing Goal: Evidence of wound healing 02/05/2024 1158 by Calderon Abdi RN Outcome: Progressing 02/05/2024 1157 by Calderon Abdi RN Outcome: Progressing Goal: Evidence of pressure injury/ulcer healing 02/05/2024 1158 by Calderon Abdi RN Outcome: Progressing 02/05/2024 1157 by Calderon Abdi RN Outcome: Progressing Goal: Absence of new skin breakdown 02/05/2024 1158 by Calderon Abdi RN Outcome: Progressing 02/05/2024 1157 by Calderon Abdi RN Outcome: Progressing Problem: Reduced risk for falls/injury Goal: Reduced Risk for Falls/Injury 02/05/2024 1158 by Calderon Abdi RN Outcome: Progressing 02/05/2024 1157 by Calderon Abdi RN Outcome: Progressing Goal: Reduced Risk of Confusion (Acute vs Chronic) 02/05/2024 1158 by Calderon Abdi RN Outcome: Progressing 02/05/2024 1157 by Calderon Abdi RN Outcome: Progressing Goal: Reduced Risk of Symptomatic Depression 02/05/2024 1158 by Calderon Abdi RN Outcome: Progressing 02/05/2024 1157 by Calderon Abdi RN Outcome: Progressing Goal: Reduced Risk of Altered Elimination 02/05/2024 1158 by Calderon Abdi RN Outcome: Progressing 02/05/2024 1157 by Calderon Abdi RN Outcome: Progressing Goal: Reduced Risk of Dizziness/Vertigo/Balance 02/05/2024 1158 by Calderon Abdi RN Outcome: Progressing 02/05/2024 1157 by Calderon Abdi RN Outcome: Progressing Goal: Reduced Risk of Polypharmacy 02/05/2024 1158 by Calderon Abdi RN Outcome: Progressing 02/05/2024 1157 by Calderon Abdi RN Outcome: Progressing * Calderon Abdi RN - 02/05/2024 11:57 AM CDT Problem: Discharge Planning Goal: Knowledge of discharge instructions Outcome: Progressing Problem: Pain control/comfort Goal: Promote pain control/comfort Outcome: Progressing Problem: Skin integrity, Impaired-wound Goal: Absence of new skin breakdown Outcome: Progressing Goal: Evidence of wound healing Outcome: Progressing Problem: Skin integrity, Impaired-pressure injury/ulcer Goal: Absence of new skin breakdown Outcome: Progressing Goal: Evidence of pressure injury/ulcer healing Outcome: Progressing Problem: Skin integrity, at risk Goal: Absence of new skin breakdown Outcome: Progressing Problem: Moisture associated skin impairment Goal: Reduce moisture exposure Outcome: Progressing Goal: Evidence of wound healing Outcome: Progressing Goal: Evidence of pressure injury/ulcer healing Outcome: Progressing Goal: Absence of new skin breakdown Outcome: Progressing Problem: Reduced risk for falls/injury Goal: Reduced Risk for Falls/Injury Outcome: Progressing Goal: Reduced Risk of Confusion (Acute vs Chronic) Outcome: Progressing Goal: Reduced Risk of Symptomatic Depression Outcome: Progressing Goal: Reduced Risk of Altered Elimination Outcome: Progressing Goal: Reduced Risk of Dizziness/Vertigo/Balance Outcome: Progressing Goal: Reduced Risk of Polypharmacy Outcome: Progressing * Neida Haynes, PT - 02/05/2024 11:34 AM CDT Orders received for PT evaluation and chart reviewed. Patient's daughter present in room and concerned about nothing being said about her possible neck fx. Pt not wanting to wear R[place] J or sling at this time. Both are not on patient upon entering room. Ortho note does not mention anything regarding C2 fx management only the radial head fx. Will need clarification on C2 fracture and need for R[place] J prior to PT working with patient. Thank you. documented in this encounter H&P Notes * Adryan Espinoza MD - 02/04/2024 10:00 PM CDT Images from the original note were not included. HISTORY AND PHYSICAL TRAUMA/ACUTE CARE SURGERY SERVICE ADRYAN ESPINOZA MD, 02/05/2024, 1:06 AM [facility] LEVEL 1 TRAUMA CENTER ACUTE CARE SURGERY SERVICE: EMERGENCY SURGERY, TRAUMA, SURGICAL CRITICAL CARE [address] [place] [address] TO CONTACT PROVIDERS: Critical Care Fans Clerk/Trauma Surgeon MD: [id number] Emergency Surgery MD: [id number] Advanced Practice Provider - Trauma: [id number] Advanced Practice Provider - Emergency Surgery [id number] Name: Emerald Reeves Date of : 1940 Room/Bed: EXAM N/N Date: 02/05/2024 Time: 1:06 AM CHIEF COMPLAINT: Category 3 Trauma. Mechanism of Injury: Fall. HOSPITAL DIAGNOSES: * No active hospital problems. * HISTORY OF PRESENT ILLNESS: Emerald Reeves is a 83-year-old female brought in by EMS, transfer from outlying facility as a Category 3 trauma and was not in cervical collar and not boarded on presentation. The patient was at swing bed and had ground level fall, work up showed possible C2 fracture and right proximal radius fracture, transfer requested Primary survey intact GCS 14, patient is confused and asking repeatedly for her daughters Had some point tenderness in right elbow Denies headache, vision changes, neck or back pain, CP, SOB, abdominal pain, N/V/C/D, or dysuria. PRIMARY SURVEY Airway: Airway Patent Breathing: Lung sounds auscultated bilaterally. Circulation: Bilateral radial, femoral and pedal pulses were palpable. Disability: Pupils were equal reactive. GCS: 14 ([id number]) Exposure: Patient was completely exposed and no injury was found PAST MEDICAL HISTORY: Past Medical History: Diagnosis Date Anxiety Atrial fibrillation (CMS/HCC HHS/HCC) on Eliquis Coronary artery disease Depression GERD (gastroesophageal reflux disease) HLD (hyperlipidemia) Migraine Mitral valve disorder regurgitation PAST SURGICAL HISTORY: Past Surgical History: Procedure [...] MG chewable tablet 01/11/19 Doc [facility] HYDROcodone-acetaminophen (NORCO) 5-325 MG tablet Take 1 tablet by mouth every 6 (six) hours as needed. Indications: Acute Pain < 7 Day Supply 10/13/22 Deanna Gonzalez PA-C lorazepam (ATIVAN) 0.5 MG tablet Take 1 [...] use: No FAMILY HISTORY: Family history was not obtained at the time of assessment REVIEW OF SYSTEMS: Pertinent items are noted in HPI. VITALS: ED Triage Vitals [02/05/24 0042] Encounter Vitals Group BP 126/68 Systolic BP Percentile Diastolic BP Percentile Pulse 100 Resp 20 Temp 98.4 ??F (36.9 ??C) Temp src Oral SpO2 94 % Weight Height 1.651 m (5' 5 ) Head Circumference Peak Flow Pain Score Pain Loc Pain Education Exclude from Growth Chart PHYSICAL EXAM: General: No acute distress, Neuro: Intermittently oriented vs delirious and shouting and confused Head/Neck: In c collar Chest: Normal breath sounds Abdomen: Soft Extremities: No signs of injury LABORATORY RESULTS: No results for input(s): WBC , HGB , HCT , PLT , APTT , INR , PTT , NA , K , CL , CO2 , AGAP , BUN , CR , BUNCREATININ , GLU , CA , TP , ALB , TBIL , ALKP , AST , ALT , MAGNESIUM , PHOS in the last 168 hours. Invalid input(s): LACTATE No results found for: PH , PCO2 , PO2 , [id number] , BICARBWB , BASEDEFICIT , BASEEXCESS No results for input(s): ABORH in the last 168 hours. No results for input(s): CKTOTAL in the last 168 hours. IMAGING: Radiology Results (Last 30 days) None ASSESSMENT: Emerald Reeves is a 83-year-old female who presented as a trauma involved in a Fall. INJURY SUMMARY: * No active hospital problems. * Head: None Cervical Spine: Possible longitudinal fracture of C2 posterior vertebra Thoracic/Lumbar Spine: None Chest: None Abdomen/Pelvis: None Extremities: Right proximal radius fracture Skin/Soft tissue: None PLAN: Patient Disposition: Medical floor OK for diet Spine consultation for C2 fracture ([place]) Ortho consultation for proximal radius fracture Resume home meds PT/OT in morning Will need sitter and PRN haloperidol for hyperactive delirium Cervical Spine Precautions: maintain Thoracolumbar Spine Precautions: cleared Code: DNR Consultations: Spine ([place]) Ortho (Vitaliy) Critical Care: The patient was managed without critical care intervention. Adryan Espinoza M.D. Trauma/Acute Care Surgery [id number] documented in this encounter Consult Notes * Isrrael Cobos MD - 02/05/2024 2:07 AM CDT ORTHOPAEDIC SURGERY CONSULT NOTE CC: Trauma HPI: Emerald Reeves is a 83-year-old female with a past medical history of dementia wed fall.hopresented as a trauma transfer after sustaining a fall. No family is present at bedside. Given the patient's mental status the majority of this HPI comes from chart review. Patient was reportedly residing at a swing bed facility when she sustained an unwitnessed fall. Imaging was performed at an out side facility which demonstrated a potential right radial head fracture and a potential C2 fracture. The patient was ultimately transferred to [facility] for evaluation by the trauma service. Orthopedics was subsequently consulted for evaluation of the patient's extension right radial head fracture. I saw and evaluated the patient at bedside. As noted above the patient is confused and is unableto appropriately answer questions. She does follow commands and participates in exam. Per chart review she is on Eliquis for chronic anticoagulation secondary to atrial fibrillation ROS: Unable to be performed PMH: fibrillation, CAD, depression, GERD, HLD, mitral valve disorder PSH: bilateral total knee arthroplasties SH: does not use alcohol or tobacco per chart review FMH: noncontributory Physical Exam: GEN: Confused. Follows commands HEENT: Cervical collar in place. Normocephalic. Atraumatic. HEART: Regular rate. Good peripheral perfusion. RESP: Airway patent. No acute respiratory distress. PSYCH: Appropriate mood and affect. Cooperative with exam. MSK: RUE: No obvious deformities appreciated. Skin is intact overlying the right elbow. TTP overlying the radial head. No significant pain with pronation/supination or flexion/extension of the elbow. NTTPabout the shoulder, arm and distally about the wrist and hand. Motors fingers spontaneously, however formal motor-sensory exam unable to be reliably obtained. Palatable radial pulse. Fingers WWP LUE: No obvious deformities appreciated. NTTP about the left shoulder, arm, elbow, forearm, wrist and hand. No obvious pain with passive ROM of the extremity. Motors fingers spontaneously, however formal motor-sensory exam unable to be reliably obtained. Palatable radial pulse. Fingers WWP RLE: well healed incision noted about the anterior aspect of the right knee. No obvious deformites appreciated. NTTP about the right hip, thigh, knee, leg, ankle, foot. Motors toes and ankle on command. Formal sensory exam unable to be reliably obtained. Palpable DP pulse. LLE: well healed incision noted about the anterior aspect of the left knee. No obvious deformites appreciated. NTTP about the left hip, thigh, knee, leg, ankle, foot. Motors toes and ankle on command. Formal sensory exam unable to be reliably obtained. Palpable DP pulse. IMAGING: Imaging outlined below was independently reviewed. -AP and lateral x-rays of the right forearm and elbow demonstrate a lucency about the radial head consistent with a potential minimally displaced fracture about the radial head. -CT scan of the RUE demonstrates a small, minimally displaced radial head fracture -AP and lateral radiographs of the left knee demonstrate a well positioned and secure total knee arthroplasty. No acute osseous abnormalities or fractures noted -Multiplanar radiographs of the bilateral shoulders and right wrist not demonstrate any acute osseous abnormalities. ASSESSMENT/PLAN: Emerald Reeves is a 83-year-old female with a PMHx of dementia presenting with a right radial head fracture Admitted to trauma [place] Ortho consulted (Dr. Pryor) -Non-operative management Pain: per primary Diet: as tolerated Activity: NWB RUE in sling, ok to begin gentle ROM of right elbow Imaging: completed, interpretations as above Nursing: apply simple sling to RUE DVT PPx: per trauma, not indicated from orthopedic standpoint Medical: per primary Patient discussed with Dr. Pryor who agrees with above assessment and plan, except as stated in the addendum. Isrrael Cobos MD Consults Cosigned by Moshe Pryor MD at 02/06/2024 8:38 AM HAM SMOKER SMOKER documented in this encounter Nursing Notes * Astrid Martinez RN - 02/08/2024 9:34 AM CST Nurse to nurse report given to Judith at [facility]. SMOKER documented in this encounter ED Notes * Mark Davila RN - 02/05/2024 1:54 AM CDT ED Handoff to Inpatient Note Triage chief complaint: Fall Mental Status: alert and oriented, has periods of confusion ED Overview: Emerald Reeves is a 83-year-old female brought in by EMS, transfer from outlying facility as a Category 3 trauma and was not in cervical collar and not boarded on presentation. The patient was at swing bed and had ground level fall, work up showed possible C2 fracture and right proximal radius fracture, transfer requested O2 demands: On room air Vitals: Blood pressure 126/68, pulse (!) 102, temperature 98.4 ??F (36.9 ??C), temperature source Oral, resp. rate 23, height 1.651 m (5' 5 ), SpO2 96%. Critical lab results: possible c2 fx Lines/Drains/Airways: 22 r hand Pending Results: Special equipment needed: [place] and [place] tribes j in place Mobility: unable to ambulate Fall risk: high Sitter: No Family/social needs: wants to talk to them Patient Belongings: with patient Isolation: No active isolations Any held meds and reasons: Consults: None If any critical questions, call mrak at [phone] ED Provider Diagnosis: Clinical Impression None Admitting Provider: No admitting provider for patient encounter. Medical History: Past Medical History: Diagnosis Date Anxiety Atrial fibrillation (CMS/HCC HHS/HCC) on Eliquis Coronary artery disease Depression GERD (gastroesophageal reflux disease) HLD (hyperlipidemia) Migraine Mitral valve disorder regurgitation Current Facility-Administered Medications Medication Dose Route Frequency Provider Last Rate Last Admin apixaban (ELIQUIS) tablet 2.5 mg 2.5 mg Oral BID EMILIA Reed DULoxetine (CYMBALTA) capsule 60 mg 60 mg Oral Daily EMILIA Reed famotidine (PEPCID) tablet 40 mg 40 mg Oral Daily EMILIA Reed lidocaine 4 % patch 1 patch 1 patch Transdermal Q24H EMILIA Reed metoprolol succinate ER (TOPROL-XL) 24 hr tablet 25 mg 25 mg Oral Daily EMILIA Reed ondansetron (ZOFRAN) injection 4 mg 4 mg Intravenous Q8H PRN EMILIA Reed senna-docusate (SENOKOT-S) 8.6-50 MG tablet 1 tablet 1 tablet Oral BID EMILIA Reed Current Outpatient Medications Medication Sig Dispense Refill acetaminophen 325 MG tablet amiodarone 200 MG tablet TAKE EVERY THIRD DAY ARIPiprazole 15 MG tablet calcium carb-cholecalciferol (CALTRATE 600+D) 600-20 MG-MCG tablet Take by mouth daily. D3 HIGH POTENCY 125 MCG (5000 UT) Cap Take 1 capsule by mouth daily. docusate sodium 100 MG capsule 0 DULoxetine (CYMBALTA) 60 MG capsule Take 1 capsule (60 mg total) by mouth daily. ELIQUIS 2.5 MG tablet escitalopram 20 MG tablet Take 2 tablets (40 mg total) by mouth daily. ferrous sulfate, 65 mg elemental, 325 (65 FE) MG tablet Take by mouth 2 (two) times daily. gabapentin 100 MG capsule Take 1 capsule (100 mg total) by mouth 3 (three) times daily. 20 capsule 0 [employer] 81 MG chewable tablet HYDROcodone-acetaminophen (NORCO) 5-325 MG tablet Take 1 tablet by mouth every 6 (six) hours as needed. Indications: Acute Pain < 7 Day Supply 15 tablet 0 lorazepam (ATIVAN) 0.5 MG tablet Take 1 tablet (0.5 mg total) by mouth 2 (two) times daily. 10 tablet 0 magnesium oxide 400 (240 Mg) MG tablet MAGNESIUM-OXIDE 400 (241.3 Mg) MG tablet metoprolol succinate 50 MG 24 hr tablet Take 0.5 tablets (25 mg total) by mouth daily. 30 tablet 12 metoprolol succinate ER 25 MG 24 hr tablet omeprazole 20 MG capsule oxybutynin 5 MG tablet Polyethylene Glycol 3350 (PEG 3350) Powder sucralfate 1 G tablet SUMAtriptan (IMITREX) 50 MG tablet Take 1 tablet (50 mg total) by mouth daily as needed for Migraine. traMADol 50 MG tablet * Ric Doyle MD - 02/05/2024 1:20 AM CDT Chief Complaint Chief Complaint Patient presents with Fall History of Present Illness Cat [facility]. Had ground level fall while at [facility] swing bed. Work up concerning for C2 fracture and prox. R radius fx. Medical History ALLERGIES: Review of patient's allergies indicates: No Known Allergies MEDICATIONS: Prior to Admission medications Medication Sig Start Date End Date Taking? Authorizing Provider amiodarone 200 MG tablet TAKE EVERY THIRD DAY Yes Doc [facility] ARIPiprazole (ABILIFY) 5 MG tablet Take 1 tablet (5 mg total) by mouth daily. Yes Default History Genericprovider cefdinir (OMNICEF) 300 MG Cap capsule Take 1 capsule (300 mg total) by mouth 2 (two) times daily. Yes Default History Genericprovider cyclobenzaprine (FLEXERIL) 10 MG tablet Take 1 tablet (10 mg total) by mouth 3 (three) times daily.Yes Default History Genericprovider DULoxetine (CYMBALTA) 60 MG capsule Take 1 capsule (60 mg total) by mouth daily. Yes Default History Genericprovider ELIQUIS 2.5 MG tablet 04/07/19 Yes Doc [facility] escitalopram (LEXAPRO) 10 MG tablet Take 1 tablet (10 mg total) by mouth daily. Yes Default HistoryGenericprovider ferrous sulfate, 65 mg elemental, 325 (65 FE) MG tablet Take by mouth 2 (two) times daily. 11/29/17 Yes Reid [facility] Abstract gabapentin 100 MG capsule Take 1 capsule (100 mg total) by mouth 3 (three) times daily. 10/15/18 Marija Foster MD [employer]IR[employer] ADULT [facility] 81 MG chewable tablet 01/11/19 Yes Reid [facility] Abstract lactulose (CEPHULAC) 20 g packet Take 1 packet (20 g total) by mouth nightly at bedtime. Yes Default History Genericprovider lidocaine 4 % patch Place 1 patch onto the skin daily. Remove & Discard patch within 12 hours or as directed by 02/08/24 Yes [place] G Madelaine [employer] lorazepam (ATIVAN) 0.5 MG tablet Take 1 tablet (0.5 mg total) by mouth 2 (two) times daily. 10/15/18Yes Lourdes Foster MD MAGNESIUM-OXIDE 400 (241.3 Mg) MG tablet 04/07/19 Yes Reid [facility] Abstract metoprolol succinate 50 MG 24 hr tablet Take 0.5 tablets (25 mg total) by mouth daily. 01/21/18 Reji Hanna MD ondansetron (ZOFRAN) 4 MG tablet Take 1 tablet (4 mg total) by mouth every 6 (six) hours as needed for Nausea. Yes Default History Genericprovider oxybutynin (DITROPAN) 5 MG tablet Take 0.5 tablets (2.5 mg total) by mouth 2 (two) times daily. YesDefault History Genericprovider oxyCODONE-acetaminophen (PERCOCET) 10-325 MG tablet Take 1 tablet by mouth every 4 (four) hours as needed for Pain. Yes Default History Genericprovider pantoprazole EC (PROTONIX) 40 MG tablet Take 1 tablet (40 mg total) by mouth daily. Yes Default History Genericprovider Polyethylene Glycol 3350 (PEG 3350) Powder 12/24/18 Yes Reid [facility] Abstract senna-docusate (SENOKOT-S) 8.6-50 MG tablet Take 1 tablet by mouth as needed for Constipation. 02/07/24 Yes [place] G Kras, MUSIC GR[employer]HER sucralfate 1 G tablet 04/28/19 Yes Reid [facility] SUMAtriptan (IMITREX) 50 MG tablet Take 1 tablet (50 mg total) by mouth daily as needed for Migraine. 12/09/17 Yes Doc [facility] acetaminophen 325 MG tablet 12/24/18 Doc [facility] docusate sodium 100 MG capsule 10/21/18 Doc [facility] Abstract PAST MEDICAL HISTORY: Past Medical History: Diagnosis Date Anxiety Atrial fibrillation (CMS/HCC HHS/HCC) on Eliquis Coronary artery disease Depression GERD (gastroesophageal reflux disease) HLD (hyperlipidemia) Migraine Mitral valve disorder regurgitation PAST SURGICAL HISTORY: Past Surgical History: Procedure [...] No Review of Systems Review of Systems Constitutional: Negative for fever. Respiratory: Negative for shortness of breath. Cardiovascular: Negative for chest pain. Psychiatric/Behavioral: Positive for confusion. Physical Exam Filed Vitals: 02/06/24 2036 02/07/24 0757 02/07/24 2105 02/08/24 0823 BP: (!) 146/62 134/64 105/50 135/56 Pulse: 87 90 73 81 Resp: 20 17 Temp: 97.9 ??F (36.6 ??C) 98.6 ??F (37 ??C) 98.6 ??F (37 ??C) 97.7 ??F (36.5 ??C) TempSrc: Oral Oral Oral SpO2: 96% 97% 95% 97% Height: Physical Exam Constitutional: General: She is not in acute distress. Cardiovascular: Rate and Rhythm: Normal rate and regular rhythm. Pulmonary: Effort: Pulmonary effort is normal. Neurological: General: No focal deficit present. Mental Status: She is alert. Diagnostic Studies / Procedures ELECTROCARDIOGRAMS: No results found for this visit on 02/05/24. LABORATORY STUDIES: Results for orders placed or performed during the hospital encounter of 02/05/24 BASIC METABOLIC PANEL Result Value Ref Range SODIUM S/P/B 132 (L) 136 - 145 MMOL/L POTASSIUM S/P/B 3.6 3.5 - 5.1 MMOL/L CHLORIDE S/P/B 102 97 - 115 MMOL/L CO2 25.1 21.0 - 32.0 MMOL/L GLUCOSE 137 (H) 74 - 106 MG/DL BUN 17 7 - 18 MG/DL CREATININE S/P/B 0.77 0.55 - 1.02 MG/DL CALCIUM S/P/B 8.8 8.5 - 10.1 MG/DL ANION GAP 4.9 2.0 - 10.0 MMOL/L OSMOLALITY (CALC) 278 MOSM/KG GFR ESTIMATE 77 (L) >90 ML/MIN/1.73 M2 GFR NOTES GFR REFERENCES: MAGNESIUM Result Value Ref Range MAGNESIUM 2.4 1.6 - 2.6 MG/DL PHOSPHORUS, INORGANIC PHOSPHATE Result Value Ref Range PHOSPHORUS 2.9 2.5 - 4.9 MG/DL CBC W/DIFF AUTOMATED Result Value Ref Range WBC 8.51 4.00 - 10.80 x10'3/uL RBC 3.18 (L) 4.10 - 5.40 x10'6/uL HGB 9.2 (L) 12.0 - 16.0 G/DL HCT 28.2 (L) 36.0 - 47.0 % MCV 88.7 78.0 - 100.0 FL MCH 28.9 27.0 - 31.0 PG MCHC 32.6 (L) 33.0 - 36.0 G/DL RDW 12.5 11.5 - 14.5 % PLT 236 150 - 350 x10'3/uL MPV 11.1 (H) 7.4 - 10.4 FL DIFFERENTIAL TYPE AUTOMATED DIFFERENTIAL SEG NEUTROPHILS 87.0 % LYMPHOCYTES 4.8 % MONOCYTES 7.4 % EOSINOPHILS 0.1 % BASOPHILS 0.2 % IMMATURE GRANS % 0.5 % ABS. NEUTROPHILS 7.40 1.60 - 8.30 x10'3/uL ABS. LYMPHOCYTES 0.41 (L) 0.80 - 4.70 x10'3/uL ABS. MONOCYTES 0.63 0.00 - 1.50 x10'3/uL ABS. EOSINOPHILS 0.01 0.00 - 0.40 x10'3/uL ABS. BASOPHILS 0.02 0.00 - 0.20 x10'3/uL ABS. IMMATURE GRANULOCYTES 0.04 (H) 0.00 - 0.03 x10'3/uL ABS. NUCLEATED RBC'S 0.00 0.00 - 0.01 x10'3/uL NRBC % 0.0 % BASIC METABOLIC PANEL Result Value Ref Range SODIUM S/P/B 135 (L) 136 - 145 MMOL/L POTASSIUM S/P/B 3.1 (L) 3.5 - 5.1 MMOL/L CHLORIDE S/P/B 102 97 - 115 MMOL/L CO2 23.7 21.0 - 32.0 MMOL/L GLUCOSE 115 (H) 74 - 106 MG/DL BUN 13 7 - 18 MG/DL CREATININE S/P/B 0.55 0.55 - 1.02 MG/DL CALCIUM S/P/B 8.9 8.5 - 10.1 MG/DL ANION GAP 9.3 2.0 - 10.0 MMOL/L OSMOLALITY (CALC) 281 MOSM/KG GFR ESTIMATE >90 >90 ML/MIN/1.73 M2 GFR NOTES GFR REFERENCES: CBC W/DIFF AUTOMATED Result Value Ref Range WBC 11.86 (H) 4.00 - 10.80 x10'3/uL RBC 3.63 (L) 4.10 - 5.40 x10'6/uL HGB 10.6 (L) 12.0 - 16.0 G/DL HCT 32.2 (L) 36.0 - 47.0 % MCV 88.7 78.0 - 100.0 FL MCH 29.2 27.0 - 31.0 PG MCHC 32.9 (L) 33.0 - 36.0 G/DL RDW 12.5 11.5 - 14.5 % PLT 286 150 - 350 x10'3/uL MPV 10.5 (H) 7.4 - 10.4 FL DIFFERENTIAL TYPE AUTOMATED DIFFERENTIAL SEG NEUTROPHILS 86.4 % LYMPHOCYTES 4.7 % MONOCYTES 7.9 % EOSINOPHILS 0.1 % BASOPHILS 0.3 % IMMATURE GRANS % 0.6 % ABS. NEUTROPHILS 10.25 (H) 1.60 - 8.30 x10'3/uL ABS. LYMPHOCYTES 0.56 (L) 0.80 - 4.70 x10'3/uL ABS. MONOCYTES 0.94 0.00 - 1.50 x10'3/uL ABS. EOSINOPHILS 0.01 0.00 - 0.40 x10'3/uL ABS. BASOPHILS 0.03 0.00 - 0.20 x10'3/uL ABS. IMMATURE GRANULOCYTES 0.07 (H) 0.00 - 0.03 x10'3/uL ABS. NUCLEATED RBC'S 0.00 0.00 - 0.01 x10'3/uL NRBC % 0.0 % BASIC METABOLIC PANEL Result Value Ref Range SODIUM S/P/B 136 136 - 145 MMOL/L POTASSIUM S/P/B 3.9 3.5 - 5.1 MMOL/L CHLORIDE S/P/B 106 97 - 115 MMOL/L CO2 23.4 21.0 - 32.0 MMOL/L GLUCOSE 133 (H) 74 - 106 MG/DL BUN 22 (H) 7 - 18 MG/DL CREATININE S/P/B 0.70 0.55 - 1.02 MG/DL CALCIUM S/P/B 8.9 8.5 - 10.1 MG/DL ANION GAP 6.6 2.0 - 10.0 MMOL/L OSMOLALITY (CALC) 287 MOSM/KG GFR ESTIMATE 86 (L) >90 ML/MIN/1.73 M2 GFR NOTES GFR REFERENCES: CBC W/DIFF AUTOMATED Result Value Ref Range WBC 11.37 (H) 4.00 - 10.80 x10'3/uL RBC 4.08 (L) 4.10 - 5.40 x10'6/uL HGB 11.8 (L) 12.0 - 16.0 G/DL HCT 35.2 (L) 36.0 - 47.0 % MCV 86.3 78.0 - 100.0 FL MCH 28.9 27.0 - 31.0 PG MCHC 33.5 33.0 - 36.0 G/DL RDW 12.3 11.5 - 14.5 % PLT 324 150 - 350 x10'3/uL MPV 11.1 (H) 7.4 - 10.4 FL DIFFERENTIAL TYPE AUTOMATED DIFFERENTIAL SEG NEUTROPHILS 82.1 % LYMPHOCYTES 7.2 % MONOCYTES 8.9 % EOSINOPHILS 0.3 % BASOPHILS 0.5 % IMMATURE GRANS % 1.0 % ABS. NEUTROPHILS 9.34 (H) 1.60 - 8.30 x10'3/uL ABS. LYMPHOCYTES 0.82 0.80 - 4.70 x10'3/uL ABS. MONOCYTES 1.01 0.00 - 1.50 x10'3/uL ABS. EOSINOPHILS 0.03 0.00 - 0.40 x10'3/uL ABS. BASOPHILS 0.06 0.00 - 0.20 x10'3/uL ABS. IMMATURE GRANULOCYTES 0.11 (H) 0.00 - 0.03 x10'3/uL ABS. NUCLEATED RBC'S 0.00 0.00 - 0.01 x10'3/uL NRBC % 0.0 % IMAGING STUDIES XR FOREARM RT 2V Final Result by User, [id number] (02/04 213) [address] [address] Indication: Radial head fracture, pain after fall COMPARISON: 02/04/2024 FINDINGS: 2 views right forearm. There are degenerative changes seen at the elbow joint. No displaced fat pad is seen. No cortical buckling is noted. Degenerative changes in the wrist are seen. IMPRESSION: Degenerative changes without plain radiographic evidence of discrete elbow fracture. Referred By: PROVIDER NON-STAFF Interpreted By: Memo Rosario MD, 02/05/2024 2:08 AM XR SHOULDER LT 3V Final Result by User, [id number] (02/04 215) [place] [address] Indication: Shoulder pain and fall COMPARISON: None FINDINGS: 3 views left shoulder. There are acromial clavicular and to a lesser extent glenohumeral joint degenerative changes. No acute fracture, dislocation, or subluxation is seen. Mild hazy opacities in the lungs are noted. 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 No gross malalignment or large joint effusion is seen. IMPRESSION: Postsurgical changes without evidence of acute bony injury or malalignment Referred By: PROVIDER NON-STAFF Interpreted By: Memo Rosario MD, 02/05/2024 2:12 AM ED Course / Medical Decision Making Medical Decision Making Trauma team present for entirety of primary survey. Management and disposition per trauma team, except where otherwise documented by myself. Clinical Impression Fall, initial encounter (Primary) Closed fracture of proximal end of radius without additional fracture C2 cervical fracture (CMS/HCC HHS/HCC) Disposition: Admit Ric Doyle MD 02/16/24226 Ric Doyle MD 02/16/24228 SMOKER SMOKER * Anaya Hamilton RN - 02/05/2024 12:39 AM CDT Patient arrives via EMS from [facility] after a fall around 6pm. Patient was an inpatient as swing bed there for last 10 days. Patient does not remember fall, radiology showed possible right radial fx and a c2 fx. Patient alert and oriented x4 at arrival, PH states intermittent confusion. C/o lumbar, mid-thoracic pain and left knee, lower left extremity pain * Helena Acevedo RN - 02/05/2024 12:31 AM CDT Bed: N Expected date: Expected time: Means of arrival: Comments: [place] [id number] trauma transfer documented in this encounter Plan of Treatment Not on file documented as of this encounter Goals Goal Patient Goal Type Associated Problems Recent Progress Patient-Stated? Author Family - family caregiver with be involved in care transitions and discharge planning Lifestyle No Dannielle Guillermo RN documented as of this encounter Procedures Procedure Name Priority Date/Time Associated Diagnosis Comments BASIC METABOLIC PANEL Routine 02/07/2024 10:06 AM HAM SMOKER CBC W/DIFF AUTOMATED Routine 02/07/2024 10:06 AM HAM SMOKER BASIC METABOLIC PANEL STAT 02/06/2024 8:33 AM HAM SMOKER CBC W/DIFF AUTOMATED STAT 02/06/2024 8:33 AM HAM SMOKER BASIC METABOLIC PANEL STAT 02/05/2024 4:30 AM CDT CBC W/DIFF AUTOMATED STAT 02/05/2024 4:30 AM CDT PHOSPHORUS, INORGANIC PHOSPHATE STAT 02/05/2024 4:30 AM CDT MAGNESIUM STAT 02/05/2024 4:30 AM CDT XR FOREARM RT 2V STAT 02/05/2024 1:38 AM CDT XR SHOULDER LT 3V STAT 02/05/2024 1:2 0 AM CDT XR KNEE LT 2V STAT 02/05/2024 1:20 AM CDT documented in this encounter Results * (ABNORMAL) CBC W/DIFF AUTOMATED (02/07/2024 10:06 AM HAM SMOKER) [facility] Signature WBC 11.37(H) 4.00 - 10.80 x10'3/uL 02/07/2024 10:20 AM HAM SMOKER [facility] RBC 4.08(L) 4.10 - 5.40 x10'6/uL 02/07/2024 10:20 AM HAM SMOKER [facility] HGB 11.8(L) 12.0 - 16.0 G/DL 02/07/2024 10:20 AM HAM SMOKER [facility] HCT 35.2(L) 36.0 - 47.0 % 02/07/2024 10:20 AM HAM SMOKER [facility] MCV 86.3 78.0 - 100.0 FL 02/07/2024 10:20 AM [facility] MCH 28.9 27.0 - 31.0 PG 02/07/2024 10:20 AM [facility] MCHC 33.5 33.0 - 36.0 G/DL 02/07/2024 10:20 AM [facility] RDW 12.3 11.5 - 14.5 % 02/07/2024 10:20 AM [facility] PLT 324 150 - 350 x10'3/uL 02/07/2024 10:20 AM [facility] MPV 11.1(H) 7.4 - 10.4 FL 02/07/2024 10:20 AM [facility] DIFFERENTIAL TYPE AUTOMATED DIFFERENTIAL 02/07/2024 10:20 AM [facility] SEG NEUTROPHILS 82.1 % 10:20 AM [facility] LYMPHOCYTES 7.2 % 02/07/2024 10:20 AM [facility] MONOCYTES 8.9 % 02/07/2024 10:20 AM [facility] EOSINOPHILS 0.3 % 02/07/2024 10:20 AM [facility] BASOPHILS 0.5 % 02/07/2024 10:20 AM [facility] IMMATURE GRANS % 1.0 % 02/07/20 10:20 AM [facility] ABS. NEUTROPHILS 9.34(H) 1.60 - 8.30 x10'3/uL 02/07/2024 10:20 AM [facility] ABS. LYMPHOCYTES 0.82 0.80 - 4.70 x10'3/uL 02/07/2024 10:20 AM [facility] ABS. MONOCYTES 1.01 0.00 - 1.50 x10'3/uL 02/07/2024 10:20 AM [facility] ABS. EOSINOPHILS 0.03 0.00 - 0.40 x10'3/uL 02/07/2024 10:20 AM [facility] ABS. BASOPHILS 0.06 0.00 - 0.20 x10'3/uL 02/07/2024 10:20 AM [facility] ABS. IMMATURE GRANULOCYTES 0.11(H) 0.00 - 0.03 x10'3/uL 02/07/2024 10:20 AM [facility] ABS. NUCLEATED RBC'S 0.00 0.00 - 0.01 x10'3/uL 02/07/2024 10:20 AM [facility] NRBC % 0.0 % 02/07/2024 10:20 AM [facility] 02/07/2024 10:0 6 AM [facility] us Melba Burkett [employer]IC GR[employer] LABORATORY Final Result [facility] [address] [place] [address], [id number] * (ABNORMAL) BASIC METABOLIC PANEL (02/07/2024 10:06 AM HAM SMOKER) SODIUM S/P/B 136 136 - 145 MMOL/L 02/07/2024 10:38 AM [facility] POTASSIUM S/P/B 3.9 3.5 - 5.1 MMOL/L 02/07/2024 10:38 AM [facility] CHLORIDE S/P/B 106 97 - 115 MMOL/L 02/07/2024 10:38 AM [facility] CO2 23.4 21.0 - 32.0 MMOL/L 02/07/2024 10:38 AM [facility] GLUCOSE 133(H) 74 - 106 MG/DL 02/07/2024 10:38 AM [facility] BUN 22(H) 7 - 18 MG/DL 02/07/2024 10:38 AM [facility] CREATININE S/P/B 0.70 0.55 - 1.02 MG/DL 02/07/2024 10:38 AM [facility] CALCIUM S/P/B 8.9 8.5 - 10.1 MG/DL 02/07/2024 10:38 AM [facility] ANION GAP 6.6 2.0 - 10.0 MMOL/L 02/07/2024 10:38 AM [facility] OSMOLALITY (CALC) 287 MOSM/KG 024 10:38 AM [facility] Comment:REFERENCE RANGE NOT ESTABLISHED GFR ESTIMATE 86(L) >90 ML/MIN/1. 73 M2 02/07/2024 10:38 AM [facility] GFR NOTES GFR REFERENCE S: 02/07/2024 10:38 AM [facility] Comment: THE ESTIMATED GFR IS [...] <15 ml/min/1.73 m2 02/07/2024 10:0 6 AM HAM SMOKER Melba Burkett NP LABORATORY Final Result [facility] [address] [place] [address], [id number] * (ABNORMAL) CBC W/DIFF AUTOMATED (02/06/2024 8:33 AM HAM SMOKER) WBC 11.86(H) 4.00 - 10.80 x10'3/uL 02/06/2024 8:39 AM HAM SMOKER [facility] RBC 3.63(L) 4.10 - 5.40 x10'6/uL 02/06/2024 8:39 AM [facility] HGB 10.6(L) 12.0 - 16.0 G/DL 02/06/2024 8:39 AM [facility] HCT 32.2(L) 36.0 - 47.0 % 02/06/2024 8:39 AM [facility] MCV 88.7 78.0 - 100.0 FL 02/06/2024 8:39 AM [facility] MCH 29.2 27.0 - 31.0 PG 02/06/2024 8:39 AM [facility] MCHC 32.9(L) 33.0 - 36.0 G/DL 02/06/2024 8:39 AM [facility] RDW 12.5 11.5 - 14.5 % 02/06/2024 8:39 AM [facility] PLT 286 150 - 350 x10'3/uL 02/06/2024 8:39 AM [facility] MPV 10.5(H) 7.4 - 10.4 FL 02/06/2024 8:39 AM [facility] DIFFERENTIAL TYPE AUTOMATED DIFFERENTIAL 02/06/2024 8:39 AM [facility] SEG NEUTROPHILS 86.4 % 8:39 AM [facility] LYMPHOCYTES 4.7 % 02/06/2024 8:39 AM [facility] MONOCYTES 7.9 % 02/06/2024 8:39 AM [facility] EOSINOPHILS 0.1 % 02/06/2024 8:39 AM [facility] BASOPHILS 0.3 % 02/06/2024 8:39 AM [facility] IMMATURE GRANS % 0.6 % 02/06/20 8:39 AM [facility] ABS. NEUTROPHILS 10.25(H) 1.60 - 8.30 x10'3/uL 02/06/2024 8:39 AM HAM SMOKER [facility] ABS. LYMPHOCYTES 0.56(L) 0.80 - 4.70 x10'3/uL 02/06/2024 8:39 AM [facility] ABS. MONOCYTES 0.94 0.00 - 1.50 x10'3/uL 02/06/2024 8:39 AM HAM SMOKER [facility] ABS. EOSINOPHILS 0.01 0.00 - 0.40 x10'3/uL 02/06/2024 8:39 AM HAM SMOKER [facility] ABS. BASOPHILS 0.03 0.00 - 0.20 x10'3/uL 02/06/2024 8:39 AM [facility] ABS. IMMATURE GRANULOCYTES 0.07(H) 0.00 - 0.03 x10'3/uL 02/06/2024 8:39 AM [facility] ABS. NUCLEATED RBC'S 0.00 0.00 - 0.01 x10'3/uL 02/06/2024 8:39 AM [facility] NRBC % 0.0 % 02/06/2024 8:39 AM [facility] 02/06/2024 8:33 AM HAM SMOKER Melba Burkett NP LABORATORY Final Result [facility] [address] [place] [address], [id number] * (ABNORMAL) BASIC METABOLIC PANEL (02/06/2024 8:33 AM HAM SMOKER) Pathologist [facility] SODIUM S/P/B 135(L) 136 - 145 MMOL/L 02/06/2024 8:55 AM HAM SMOKER [facility] POTASSIUM S/P/B 3.1(L) 3.5 - 5.1 MMOL/L 02/06/2024 8:55 AM [facility] CHLORIDE S/P/B 102 97 - 115 MMOL/L 02/06/2024 8:55 AM [facility] CO2 23.7 21.0 - 32.0 MMOL/L 02/06/2024 8:55 AM [facility] GLUCOSE 115(H) 74 - 106 MG/DL 02/06/2024 8:55 AM [facility] BUN 13 7 - 18 MG/DL 02/06/2024 8:55 AM [facility] CREATININE S/P/B 0.55 0.55 - 1.02 MG/DL 02/06/2024 8:55 AM [facility] CALCIUM S/P/B 8.9 8.5 - 10.1 MG/DL 02/06/2024 8:55 AM [facility] ANION GAP 9.3 2.0 - 10.0 MMOL/L 02/06/2024 8:55 AM [facility] OSMOLALITY (CALC) 281 MOSM/KG 024 8:55 AM [facility] Comment:REFERENCE RANGE NOT ESTABLISHED GFR ESTIMATE >90 >90 ML/MIN/1. 73 M2 02/06/2024 8:55 AM [facility] GFR NOTES GFR REFERENCE S: 02/06/2024 8:55 AM [facility] Comment: THE ESTIMATED GFR IS [...] ml/min/1.73 m2 G5,KIDNEY FAILURE: <15 ml/min/1.73 m2 02/06/2024 8:33 AM HAM SMOKER Melba Burkett [employer] LABORATORY Final Result [facility] [address] [place] [address], [id number] * (ABNORMAL) CBC W/DIFF AUTOMATED (02/05/2024 4:30 AM CDT) WBC 8.51 4.00 - 10.80 x10'3/uL 02/05/2024 4:45 AM CDT [facility] RBC 3.18(L) 4.10 - 5.40 x10'6/uL 02/05/2024 4:45 AM CDT [facility] HGB 9.2(L) 12.0 - 16.0 G/DL 02/05/2024 4:45 AM CDT [facility] HCT 28.2(L) 36.0 - 47.0 % 02/05/2024 4:45 AM CDT [facility] MCV 88.7 78.0 - 100.0 FL 02/05/2024 4:45 AM CDT [facility] MCH 28.9 27.0 - 31.0 PG 02/05/2024 4:45 AM CDT [facility] MCHC 32.6(L) 33.0 - 36.0 G/DL 02/05/2024 4:45 AM CDT [facility] RDW 12.5 11.5 - 14.5 % 02/05/2024 4:45 AM CDT [facility] PLT 236 150 - 350 x10'3/uL 02/05/2024 4:45 AM CDT [facility] MPV 11.1(H) 7.4 - 10.4 FL 02/05/2024 4:45 AM CDT [facility] DIFFERENTIAL TYPE AUTOMATED DIFFERENTIAL 02/05/2024 4:45 AM CDT [facility] SEG NEUTROPHILS 87.0 % 4:45 AM CDT [facility] LYMPHOCYTES 4.8 % 02/05/2024 4:45 AM CDT [facility] MONOCYTES 7.4 % 02/05/2024 4:45 AM CDT [facility] EOSINOPHILS 0.1 % 02/05/2024 4:45 AM CDT [facility] BASOPHILS 0.2 % 02/05/2024 4:45 AM CDT [facility] IMMATURE GRANS % 0.5 % 02/05/20 4:45 AM CDT [facility] ABS. NEUTROPHILS 7.40 1.60 - 8.30 x10'3/uL 02/05/2024 4:45 AM CDT [facility] ABS. LYMPHOCYTES 0.41(L) 0.80 - 4.70 x10'3/uL 02/05/2024 4:45 AM CDT [facility] ABS. MONOCYTES 0.63 0.00 - 1.50 x10'3/uL 02/05/2024 4:45 AM CDT [facility] ABS. EOSINOPHILS 0.01 0.00 - 0.40 x10'3/uL 02/05/2024 4:45 AM CDT [facility] ABS. BASOPHILS 0.02 0.00 - 0.20 x10'3/uL 02/05/2024 4:45 AM CDT [facility] ABS. IMMATURE GRANULOCYTES 0.04(H) 0.00 - 0.03 x10'3/uL 02/05/2024 4:45 AM CDT [facility] ABS. NUCLEATED RBC'S 0.00 0.00 - 0.01 x10'3/uL 02/05/2024 4:45 AM CDT [facility] NRBC % 0.0 % 02/05/2024 4:45 AM CDT [facility] 02/05/2024 4:30 AM CDT [facility] Final Result Performing Organization Address City/[facility]/ZIP Co de Phone Number [facility] [address] [place] [address], [phone] * PHOSPHORUS, INORGANIC PHOSPHATE (02/05/2024 4:30 AM CDT) PHOSPHORUS 2.9 2.5 - 4.9 MG/DL 02/05/2024 5:12 AM CDT [facility] 02/05/2024 4:30 AM CDT [facility] Final Result Performing Organization Address [facility] Co de Phone Number [facility] [address] [place] [address], [phone] * MAGNESIUM (02/05/2024 4:30 AM CDT) MAGNESIUM 2.4 1.6 - 2.6 MG/DL 02/05/2024 5:12 AM CDT [facility] 02/05/2024 4:30 AM CDT [facility] Final Result Performing Organization Address City/[facility] Co de Phone Number [facility] [address] [place] [address], [phone] * (ABNORMAL) BASIC METABOLIC PANEL (02/05/2024 4:30 AM CDT) SODIUM S/P/B 132(L) 136 - 145 MMOL/L 02/05/2024 5:12 AM CDT [facility] POTASSIUM S/P/B 3.6 3.5 - 5.1 MMOL/L 02/05/2024 5:12 AM CDT [facility] CHLORIDE S/P/B 102 97 - 115 MMOL/L 02/05/2024 5:12 AM CDT [facility] CO2 25.1 21.0 - 32.0 MMOL/L 02/05/2024 5:12 AM CDT [facility] GLUCOSE 137(H) 74 - 106 MG/DL 02/05/2024 5:12 AM CDT [facility] BUN 17 7 - 18 MG/DL 02/05/2024 5:12 AM CDT [facility] CREATININE S/P/B 0.77 0.55 - 1.02 MG/DL 02/05/2024 5:12 AM CDT [facility] CALCIUM S/P/B 8.8 8.5 - 10.1 MG/DL 02/05/2024 5:12 AM CDT [facility] ANION GAP 4.9 2.0 - 10.0 MMOL/L 02/05/2024 5:12 AM T [facility] OSMOLALITY (CALC) 278 MOSM/KG 024 5:12 AM T [facility] Comment:REFERENCE RANGE NOT ESTABLISHED GFR ESTIMATE 77(L) >90 ML/MIN/1. 73 M2 02/05/2024 5:12 AM T [facility] GFR NOTES GFR REFERENCE S: 02/05/2024 5:12 AM T [facility] Comment: THE ESTIMATED GFR IS CALCULATED [...] ml/min/1.73 m2 G5,KIDNEY FAILURE: <15 ml/min/1.73 m2 02/05/2024 4:30 AM CDT [facility] Final Result [facility] [address] [place] [address], [id number] * XR FOREARM RT 2V (02/05/2024 1:38 AM CDT) Anatomical Region Laterality Modality Forearm Radiographic Ricarda ging 02/05/2024 2:08 AM CDT Impressions 02/05/2024 2:11 AM CDT IMPRESSION: Degenerative changes without plain radiographic evidence of discrete elbow fracture. Referred By: PROVIDER NON-STAFF Interpreted By: Memo Rosario MD, 02/05/2024 2:08 AM Narrative 02/05/2024 2:11 AM CDT [address] [address] Indication: Radial head fracture, pain after fall COMPARISON: 02/04/2024 FINDINGS: 2 views right forearm. ??There are degenerative changes seen at the elbow joint. ??No displaced fat pad is seen. ??No cortical buckling is noted. ??Degenerative changes in the wrist are seen. Procedure Note Malcolm Rosario MD - 02/05/[address] [address] Indication: Radial head fracture, pain after fall [...] MD GENERAL IMAGING Final Result * XR KNEE LT 2V (02/05/2024 1:20 AM CDT) Anatomical Region Laterality Modality Knee Radiographic Ricarda ging 02/05/2024 2:12 AM CDT Impressions 02/05/2024 2:12 AM CDT IMPRESSION: Postsurgical changes without evidence of acute bony injury or malalignment Referred By: PROVIDER NON-STAFF Interpreted By: Memo Rosario MD, 02/05/2024 2:12 AM Narrative 02/05/2024 2:12 AM CDT [place] [address] Indication: Fall, knee pain COMPARISON: 10/08/2022 FINDINGS: 2 views left knee demonstrate 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 ??No gross malalignment or large joint effusion is seen. Procedure Note Malcolm Rosario MD - 02/05/2024 [place] [address] Indication: Fall, knee pain COMPARISON: 10/08/2022 FINDINGS: 2 views left knee demonstrate postsurgical changes from totalknee arthroplasty without abnormal periprosthetic lucency or discretefracture seen. No gross malalignment or large joint effusion is seen. IMPRESSION: Postsurgical changes without evidence of acute bony injury ormalalignment Referred By: PROVIDER NON-STAFF Interpreted By: Memo Rosario MD, 02/05/2024 2:12 AM [facility] Final Result * XR SHOULDER [...] 2:13 AM Narrative 02/05/2024 2:14 AM CDT [address] [address] Indication: Shoulder pain and fall COMPARISON: None FINDINGS: 3 views left shoulder. ??There are acromial clavicular and to a lesser extent glenohumeral joint degenerative changes. ??No acute fracture, dislocation, or subluxation is seen. ??Mild hazy opacities in the lungs are noted. Procedure Note Malcolm Rosario MD - 02/05/[address] [address] Indication: Shoulder pain and fall COMPARISON: None [...] AM [facility] Final Result documented in this encounter Visit Diagnoses Diagnosis Fall- Primary Unspecified fall Fall, initial encounter Closed fracture of proximal end of radius without additional fracture C2 cervical fracture (CMS/HCC HHS/HCC) Closed fracture of second cervical vertebra without mention of spinal cord injury documented in this encounter Admitting Diagnoses Diagnosis Fall Unspecified fall documented in this encounter Administered Medications Inactive Administered Medications - up to 3 most recent administrations Medication Order MAR Action Action Date Dose Rate Site amiodarone (PACERONE) tablet 200 mg 200 mg, Oral, Every 72 hours, First dose on 02/06/24 at 1430, Until Discontinued, TAKE EVERY THIRD DAY Given 02/06/2024 2:37 PM [facility] 200 mg apixaban (ELIQUIS) tablet 2.5 mg 2.5 mg, Oral, 2 times daily, Indications: Atrial Fibrillation, Deep Vein Thrombosis Prophylaxis, First dose on 02/05/24 at 0900, Until DiscontinuedIndications:Atrial Fibrillation,Deep Vein Thrombosis Prophylaxis Given 02/08/2024 8:30 AM [facility] 2.5 mg Given 02/07/2024 8:17 PM [facility] 2.5 mg Given 02/07/2024 9:04 AM [facility] 2.5 mg ARIPiprazole (ABILIFY) tablet 5 mg 5 mg, Oral, Daily, First dose on 02/06/24 at 1430, Until Discontinued Given 02/08/2024 8:29 AM [facility] 5 mg Given 02/07/2024 9:03 AM [facility] 5 mg Given 02/06/2024 2:35 PM [facility] 5 mg citalopram (CeleXA) tablet 10 mg 10 mg, Oral, Daily, First dose on 02/06/24 at 1430, Until Discontinued, Therapeutic interchange for ESCITALOPRAM Given 02/08/2024 8:29 AM [facility] 10 mg Given 02/07/2024 9:03 AM [facility] 10 mg Given 02/06/2024 2:37 PM [facility] 10 mg DULoxetine (CYMBALTA) capsule 60 mg 60 mg, Oral, Daily, First dose on 02/05/24 at 0900, Until Discontinued, Swallow capsule whole or it may be opened and the contents sprinkled on applesauce. Given 02/06/2024 9:20 AM [facility] 60 mg Given 02/05/2024 8:15 AM CDT 60 mg DULoxetine (CYMBALTA) capsule 60 mg 60 mg, Oral, Daily, First dose on 02/07/24 at 0900, Until Discontinued, Swallow capsule whole or it may be opened and the contents sprinkled on applesauce. Given 02/08/2024 8:29 AM [facility] 60 mg Given 02/07/2024 9:04 AM [facility] 60 mg famotidine (PEPCID) tablet 40 mg 40 mg, Oral, Daily, First dose on 02/05/24 at 0900, Until Discontinued Given 02/08/2024 8:29 AM [facility] 40 mg Given 02/07/2024 9:04 AM [facility] 40 mg Given 02/06/2024 9:20 AM [facility] 40 mg gabapentin (NEURONTIN) capsule 100 mg 100 mg, Oral, 3 times daily, First dose on 02/06/24 at 1600, Until Discontinued Given 02/08/2024 8:30 AM [facility] 100 mg Given 02/07/2024 8:17 PM [facility] 100 mg Given 02/07/2024 3:59 PM [facility] 100 mg haloperidol lactate (HALDOL) injection 5 mg 5 mg, Intramuscular, Every 6 hours PRN, Agitation, Starting on 02/05/24 at 0501, Until 02/05/24 at 1234, IF giving IV, do not give faster than 5 mg/min IV; observe for hypotension. Given 02/05/2024 6:45 AM CDT 5 mg Right Dorsal Gluteal HYDROcodone-acetaminophen (NORCO) 5-325 MG tablet 1 tablet 1 tablet, Oral, Every 6 hours PRN, Severe pain (Scale 8 - 10), Starting on Wed02/06/24 at 1400, Until Wed02/08/24 at 1240, Maximum dose of acetaminophen is 4000 mg from all sources in 24 hours. Given 02/08/2024 8:29 AM [facility] 1 tablet Given 02/07/2024 8:16 PM [facility] 1 tablet lidocaine 4 % patch 1 patch 1 patch, Transdermal, Administer over 12 Hours, Every 24 hours, First dose on 02/05/24 at 0200, Until Discontinued Patch Applied 02/08/2024 8:30 AM [facility] 1 patch Right Shoulder Patch Applied 02/07/2024 9:04 AM [facility] 1 patch Left Shoulder Patch Applied 02/06/2024 3:16 AM [facility] 1 patch Right Arm melatonin tablet 3 mg 3 mg, Oral, Nightly at bedtime, First dose on 02/06/24 at 2100, Until Discontinued Given 02/07/2024 8:16 PM [facility] 3 mg Given 02/06/2024 9:52 PM [facility] 3 mg metoprolol succinate ER (TOPROL-XL) 24 hr tablet 25 mg 25 mg, Oral, Daily, First dose on 02/05/24 at 0900, Until Discontinued, May be split in half along the tablet score line; do not chew or crush. Given 02/08/2024 8:30 AM [facility] 25 mg Given 02/07/2024 9:03 AM [facility] 25 mg Given 02/06/2024 9:20 AM [facility] 25 mg ondansetron (ZOFRAN) injection 4 mg 4 mg, Intravenous, Every 8 hours PRN, Nausea, Vomiting, Starting on 02/05/24 at 0136, Until Tu02/08/24 at 1240, Use PRN antiemetics in this order to achieve relief of nausea and/or vomiting: Ondansetron first followed by Metoclopramide phosphorus (K PHOS NEUTRAL) tablet 500 mg 500 mg, Oral, Every 4 hours, 3 doses, First dose on 02/05/24 at 0845, Last dose on 02/05/24 at 1645 Given 02/05/2024 2:00 PM CDT 500 mg Given 02/05/2024 9:20 AM CDT 500 mg potassium chloride CR (KLOR-CON M) tablet 40 mEq 40 mEq, Oral, Once, 1 dose, On 02/06/24 at 1145, Do not chew, crush, or suck on tablet. May break in half. May dissolve whole tablet in 120 mL of water and drink immediately. Given 02/06/2024 11:51 AM [facility] 40 mEq senna-docusate (SENOKOT-S) 8.6-50 MG tablet 1 tablet 1 tablet, Oral, 2 times daily, First dose on 02/05/24 at 0900, Until Discontinued, Hold for loose stools. Tablet may be crushed and given via TF. Given 02/07/2024 8:17 PM [facility] 1 ta blet Given 02/07/2024 9:04 AM [facility] 1 tablet Given 02/06/2024 9:53 PM [facility] 1 tablet solifenacin (VESICARE) tablet 5 mg 5 mg, Oral, Daily, First dose on 02/06/24 at 1430, Until Discontinued, Therapeutic interchange for OXYBUTYNIN 2.5MG TWICE DAILY Do not break, chew, or crush. Given 02/08/2024 8:29 AM [facility] 5 mg Given 02/07/2024 9:04 AM [facility] 5 mg Given 02/06/2024 2:36 PM [facility] 5 mg documented in this encounter Active and Recently Administered Medications Due to Daylight Saving Time, this section may contain times in both CDT and [facility]. Scheduled Medication Order 02/06/2024 02/07/2024 02/08/2024 amiodarone (PACERONE) tablet 200 mg 200 mg, Oral, Every 72 hours, First dose on 02/06/24 at 1430, Until Discontinued, TAKE EVERY THIRD DAY 143 (Given - Provider: Tamiko Haas LPN) apixaban (ELIQUIS) tablet 2.5 mg 2.5 mg, Oral, 2 times daily, Indications: Atrial Fibrillation, Deep Vein Thrombosis Prophylaxis, First dose on 02/05/24 at 0900, Until Discontinued 919 (Given - Provider: Tamiko Haas LPN)2152 (Given - Provider: Maday Trevino LPN) 903 (Given - Provider: Ira Calderón RN)2016 (Given - Provider: Bridgette Gao RN) 0830 (Given - Provider: Leida Cueva LPN) ARIPiprazole (ABILIFY) tablet 5 mg 5 mg, Oral, Daily, First dose on 02/06/24 at 1430, Until Discontinued 143 (Given - Provider: Tamiko Haas LPN) 09 (Given - Provider: Ira Calderón RN) 0829 (Given - Provider: Leida Cueva LPN) citalopram (CeleXA) tablet 10 mg 10 mg, Oral, Daily, First dose on 02/06/24 at 1430, Until Discontinued, Therapeutic interchange for ESCITALOPRAM 1436 (Given - Provider: Tamiko Haas LPN) 09 (Given - Provider: Ira Calderón RN) 0829 (Given - Provider: Leida Cueva LPN) DULoxetine (CYMBALTA) capsule 60 mg (CANCELED) 60 mg, Oral, Daily, First dose on 02/05/24 at 0900, Until Discontinued, Swallow capsule whole or it may be opened and the contents sprinkled on applesauce. 919 (Given - Provider: Tamiko Haas LPN) DULoxetine (CYMBALTA) capsule 60 mg 60 mg, Oral, Daily, First dose on 02/07/24 at 0900, Until Discontinued, Swallow capsule whole or it may be opened and the contents sprinkled on applesauce. 09 (Given - Provider: Ira Calderón RN) 0829 (Given - Provider: Leida Cueva LPN) famotidine (PEPCID) tablet 40 mg 40 mg, Oral, Daily, First dose on 02/05/24 at 0900, Until Discontinued 09 (Given - Provider: Tamiko Haas LPN) 0904 (Given - Provider: Ira Calderón RN) 08 (Given - Provider: Leida Cueva LPN) gabapentin (NEURONTIN) capsule 100 mg 100 mg, Oral, 3 times daily, First dose on 02/06/24 at 1600, Until Discontinued 161 (Given - Provider: Tamiko Haas LPN)2151 (Given - Provider: Maday Trevino LPN) 09 (Given - Provider: Ira Calderón RN)155 (Given - Provider: Tamiko Haas LPN)2016 (Given - Provider: Bridgette Gao RN) 08 (Given - Provider: Leida Cueva LPN) lidocaine 4 % patch 1 patch 1 patch, Transdermal, Administer over 12 Hours, Every 24 hours, First dose on 02/05/24 at 0200, Until Discontinued 031 (Patch Applied - Provider: Dede Cabral RN)153 (Patch Removed - Provider: Tamiko Haas LPN) 09 (Patch Applied - Provider: Ira Calderón RN)215 (Patch Removed - Provider: Bridgette Gao RN) 0830 (Patch Applied - Provider: Leida Cueva LPN)1040 (Due: Patch Removed - Provider: Automatic Discharge Provider - Comment: Time automatically adjusted from order being discontinued) melatonin tablet 3 mg 3 mg, Oral, Nightly at bedtime, First dose on 02/06/24 at 2100, Until Discontinued 2151 (Given - Provider: Maday Trevino LPN) 2015 (Given - Provider: Bridgette Gao RN) metoprolol succinate ER (TOPROL-XL) 24 hr tablet 25 mg 25 mg, Oral, Daily, First dose on 02/05/24 at 0900, Until Discontinued, May be split in half along the tablet score line; do not chew or crush. 09 (Given - Provider: Tamiko Haas LPN) 09 (Given - Provider: Ira Calderón RN) 0830 (Given - Provider: Leida Cueva LPN) potassium chloride CR (KLOR-CON M) tablet 40 mEq (COMPLETED) 40 mEq, Oral, Once, 1 dose, On 02/06/24 at 1145, Do not chew, crush, or suck on tablet. May break in half. May dissolve whole tablet in 120 mL of water and drink immediately. 1151 (Given - Provider: Tamiko Haas LPN) senna-docusate (SENOKOT-S) 8.6-50 MG tablet 1 tablet 1 tablet, Oral, 2 times daily, First dose on 02/05/24 at 0900, Until Discontinued, Hold for loose stools. Tablet may be crushed and given via TF. 0920 (Given - Provider: Tamiko Haas LPN)215 (Given - Provider: Maday Trevino LPN) 0904 (Given - Provider: Ira Calderón, NICK)2016 (Given - Provider: Bridgette Gao RN) 0841 (Not Given - Provider: Leida Cueva LPN - Reason: Contraindicated) solifenacin (VESICARE) tablet 5 mg 5 mg, Oral, Daily, First dose on 02/06/24 at 1430, Until Discontinued, Therapeutic interchange for OXYBUTYNIN 2.5MG TWICE DAILY Do not break, chew, or crush. 1436 (Given - Provider: Tamiko Haas LPN) 0904 (Given - Provider: Ira Calderón, NICK) 0829 (Given - Provider: Leida Cueva LPN) PRN Medication Order 02/06/2024 02/07/2024 02/08/2024 acetaminophen (TYLENOL) tablet 500 mg 500 mg, Oral, Every 6 hours PRN, Headaches, Fever, Discomfort, Moderate pain (Scale 4 - 7), Starting on 02/06/24 at 1400, Until Wed02/08/24 at 1240, Maximum dose of acetaminophen is 4000 mg from all sources in 24 hours. HYDROcodone-acetaminophen (NORCO) 5-325 MG tablet 1 tablet 1 tablet, Oral, Every 6 hours PRN, Severe pain (Scale 8 - 10), Starting on 02/06/24 at 1400, Until Wed02/08/24 at 1240, Maximum dose of acetaminophen is 4000 mg from all sources in 24 hours. 2015 (Given - Provider: Bridgette Gao RN) 08 (Given - Provider: Leida Cueva LPN) ondansetron (ZOFRAN) injection 4 mg 4 mg, Intravenous, Every 8 hours PRN, Nausea, Vomiting, Starting on 02/05/24 at 0136, Until 02/08/24 at 1240, Use PRN antiemetics in this order to achieve relief of nausea and/or vomiting: Ondansetron first followed by Metoclopramide documented in this encounter Care Teams Histotechnician Relationship Specialty Start Date End Date Jarret Martinez MD [address] [place] [phone] PCP - General FAMILY PRACTICE 12/27/17 Robbin Urban MD [address] [place] [phone] [place] Log[employer] Specialist CARDIOVASCULAR DISEASE 04/24/19 documented as of this encounter
--- OUTSIDE RECORDS SUMMARY | 2024-03-20 22:45 | XMS_ITS | Encounter Summary ---
Author Organization [facility] Address [address] [place] [address]. [place] [address] [place] [address] Care Team Providers Care Brick Washer Name Role Phone Jarret Kwong MD Primary Care Provider Robbin Urban MD Unavailable [phone] Encounter Details Date Type Department Care Team (Latest Contact Info) Description 02/05/2024 Travel Social History Tobacco Use Types Packs/Day [...] place to sleep or slept in a fci (including now)? No 10/09/2022 Comments No Sex [...] on filedocumented in this encounter Care Teams Brick Washer Relationship Specialty Start Date End Date Jarret Kwong MD [address] [place] [phone] PCP - General FAMILY PRACTICE 12/27/17 Robbin Urban MD [address] [place] [id number] [employer] Supervisor CARDIOVASCULAR DISEASE 04/24/19 documented as of this encounter
--- OUTSIDE RECORDS SUMMARY | 2024-03-20 22:46 | XMS_ITS | Encounter Summary ---
Author Organization [facility] Address [address] [place] [address]. [place] [address] [place] [address] Care Team Providers Care Drafter Name Role Phone Jarret Kwong MD Primary Care Provider [phone] Robbin Urban MD Unavailable [phone] Reason for Visit * Reason Comments Injection * Treatment/Therapy Plan Authorization (Routine) - No Auth Needed Specialty Diagnoses / Procedures Referred By Contgunnar t Referred To Contact Diagnoses Senile osteoporosis Jarret Kwong MD [address] [place] [phone] Phone: tel: fax: [facility] [address] [place] [address] Phone: tel: Referral ID Status Reason Start Date Expiration Date V isits Requested Visits Authorized [id number] No Auth Needed 05/22/2019 1 1 Encounter Details Date Type Department Care Team (Latest Contact Info) Description 08/12/2020 9:19 AM CDT - 08/12/2020 11:59 PM CDT Hospital Encounter [facility] [place] [address] Jarret Kwong MD [address] [place] [phone] Injection Discharge Disposition: Home or Self Care (Routine Discharge) Social History Tobacco Use Types Packs/Day Years Used Date Smoking Tobacco: Never Smokeless Tobacco: Never Alcohol Use Standard Drinks/Week Comments No 0 (1 standard drink = 0.6 oz pur e alcohol) AUDIT-C Answer Date Recorded Frequency of Alcohol Consumption Never 10/10/2018 Average Number of Drinks Not on file 019 Frequency of Binge Drinking Not on file 11/2018 Comments No Sex and Gender Information Value Date Recorded Sex Assigned at Not on file Legal Sex Female 12:12 AM CDT Gender Identity Not on file Sexual Orientation Not on file COVID-19 Exposure Response Date Recorded In the last month, have you been in contact with someone who was confirmed or suspected to have Coronavirus / COVID-19? No / Unsure 08/12/2020 9:13 AM CDT documented as of this encounter Last Filed Vital Signs Vital Sign Reading Time Taken Comments Blood Pressure 121/52 08/12/2020 10:42 AM CDT Pulse 76 08/12/2020 10:42 AM CDT Temperature 36.2 ??C (97.2 ??F) 08/12/2020 10:42 AM C DT Respiratory Rate 20 08/12/2020 10:42 AM CDT Oxygen Saturation - - Inhaled Oxygen Concentration - - Weight 58.1 kg (128 lb) 08/12/2020 10:42 AM CDT Height - - Body Mass Index 23.41 11/02/2018 2:46 PM CDT documented in this encounter Functional Status * RETIRED Are you deaf or do you have serious difficulty hearing Answer Date of Assessment Author Status No 10/12/2018 1:00 AM CDT Activ e * RETIRED Are you blind or do you have serious difficulty seeing, even when wearing glasses? Answer Date of Assessment Author Status No 10/12/2018 1:00 AM CDT Activ e * Do you have serious difficulty walking or climbing stairs? Answer Date of Assessment Author Status No 10/12/2018 1:00 AM CDT Atiya Haas RN Active * Do you have difficulty dressing or bathing? Answer Date of Assessment Author Status No 10/12/2018 1:00 AM CDT Atiya Haas RN Active * Because of a physical, mental, or emotional condition, do you have difficulty doing errands alone such as visiting a doctor's office or shopping? Answer Date of Assessment Author Status No 10/12/2018 1:00 AM Atiya Ramirez RN Active documented as of this encounter Mental Status * Because of a physical, mental, or emotional condition, do you have serious difficulty concentrating, remembering, or making decisions? Answer Entry Date Author Status No 10/12/2018 1:00 AM Atiya Ramirez RN Active documented in this encounter Medications [...] 3 (three) times daily. 20 capsule 10/15/[id number] ADULT [address]OW [address] 81 MG chewable [...] (40 mg total) by mouth daily. 02/06/2024 magnesium oxide 400 (240 Mg) MG tablet 12/23/2018 02/06/2024 metoprolol succinate ER 25 MG 24 hr tablet 05/08/2019 omeprazole 20 MG capsule 05/02/2019 02/06/2024 oxybutynin 5 MG tablet 05/01/2019 02/06/2024 traMADol 50 MG tablet 05/23/2019 02/06/2024 documented as of this encounter Progress Notes * Gissel Perkins - 08/12/2020 10:30 AM CDTEncounter addended by: Gissel Perkins on: 08/15/2020 3:43 PM Actions taken: Charge Capture section accepted * Lilia Gonzalez RN - 08/12/2020 10:30 AM CDT PATIENT ASSESSMENT: Admitted via: Ambulatory Admitted from: Home Planned procedure: Scheduled prolia injection Patient information verified by LILIA GONZALEZ RN. Barriers to learning: None Patient identity confirmed - Name and date of , Allergies Verified, Family/Significant other present, teaching done/mutual goals set and understood and Patient/S.O given able to voice fears/concerns LOC: Alert Emotional: Calm Motor Activity: Gait steady Respiratory: Regular and even Circulatory: WDL Nutrition: Tolerated diet well Elimination: Voiding NURSING DIAGNOSIS: Risk of injury GOALS: Patient will be free from signs/symptoms of physical injury documented in this encounter Plan of Treatment Not on file documented as of this encounter Visit Diagnoses Diagnosis Senile osteoporosis- Primary documented in this encounter Administered Medications Inactive Administered Medications - up to 3 most recent administrations Medication Order MAR Action Action Date Dose Rate Site denosumab (PROLIA) injection 60 mg 60 mg, Subcutaneous, Once, 1 dose, On 08/12/20 at 1115Indications:Senile osteoporosis Given 08/12/2020 11:17 AM CDT 60 mg Left Arm documented in this encounter Care Teams Drafter Relationship Specialty Start Date End Date Jarret Kwong MD [address] [place] [phone] PCP - General FAMILY PRACTICE 12/27/17 Robbin Urban MD [address] [place] [address] [employer] Repairer CARDIOVASCULAR DISEASE 04/24/19 documented as of this encounter
--- OUTSIDE RECORDS SUMMARY | 2024-03-20 22:46 | XMS_ITS | Encounter Summary ---
Author Organization [facility] Address [address] [place] [address]. [place] [address] [place] [address] Care Team Providers Care Database Architect Name Role Phone Jarret Kwong MD Primary Care Provider Go Hanna MD Unavailable Unavailable Reason for Visit * Reason Onset Date Comments Follow Up Call 10/11/2018 Encounter Details Date Type Department Care Team (Late st Contact Info) Description 10/11/2018 Telephone [facility] - [place] [address], [id number] [place] [phone] Gilbert Webb MBBS [address] [place] [phone] Follow Up Call Social History Tobacco Use Types Packs/Day Years [...] documented as of this encounter Functional Status documented as of this encounter Mental Status * Question Answer Entry Date Author Status Because of a physical, mental, or emotional condition, do you have serious difficulty concentrating, remembering, or making decisions? No 10/12/2018 1:00 AM CDT Atiya Haas RN Active documented in this encounter Progress Notes * Helena Guzman RN - 10/11/2018 3:20 PM CDT Spoke with nurse and she has been paging Dr. Becerra. I told her to call his cell as the pager doesn't work. documented in this encounter Plan of Treatment Not on file documented as of this encounter Visit Diagnoses Not on filedocumented in this encounter Care Teams Database Architect Relationship Specialty Start Date End Date Jarret Kwong MD [address] [place] [phone] PCP - General FAMILY PRACTICE 12/27/17 Go Hanna MD [address] [place] [phone] INTERVENTIONAL CARDIOLOGY 12/27/17 04/23/19 documented as of this encounter
--- OUTSIDE RECORDS SUMMARY | 2024-03-20 22:46 | XMS_ITS | Encounter Summary ---
Author Organization [facility] Address [address] [place] [address]. [place] [address] [place] [address] Care Team Providers Care Db2 Developer Name Role Phone Jarret Kwong MD Primary Care Provider Robbin Urban MD Unavailable [phone] Encounter Details Date Type Department Care Team (Latest Contact Info) Description 09/12/2021 Travel Social History Tobacco Use Types Packs/Day [...] Exposure Response Date Recorded In the last 10 days, have yo u been in contact with someone who was confirmed or suspected to have Coronavirus/COVID-19? No / Unsure 09/12/2021 12:21 PM CDT documented as of this encounter Functional Status * RETIRED Are [...] 10/12/2018 1:00 AM Atiya Ramirez RN Active * Do you have difficulty dressing or bathing? Answer Date of Assessment Author Status No 10/12/2018 1:00 AM Atyia Ramirez RN Active * Because of a physical, [...] Ramirez RN Active documented in this encounter Plan of Treatment Not on file documented as of this encounter Visit Diagnoses Not on filedocumented in this encounter Care Teams Db2 Developer Relationship Specialty Start Date End Date Jarret Kwong MD [address] [place] [phone] PCP - General FAMILY PRACTICE 12/27/17 Robbin Urban MD [address] [place] [id number] [place] [employer] Supervisor CARDIOVASCULAR DISEASE 04/24/19 documented as of this encounter
--- OUTSIDE RECORDS SUMMARY | 2024-03-20 22:46 | XMS_ITS | Encounter Summary ---
Author Organization [facility] Address [address] [place] [address]. [place] [address] [place] [address] Care Team Providers Care Multi Line Claims Adjuster Name Role Phone Jarret Kwong MD Primary Care Provider [phone] Robbin Urban MD Unavailable [phone] Reason for Referral * Imaging (Emergency) - Closed Specialty Diagnoses / Procedures Referred By Contac t Referred To Contact RADIOLOGY Procedures CT FACIAL BONES WO CON Jayashree Rea MD Phone: tel: fax: Referral ID Status Reason Start Date Expiration Date Visits Re quested Visits Authorized [id number] Closed 10/08/2022 10/09/2023 1 1 * Imaging (Emergency) - Closed Specialty Diagnoses / Procedures Referred By Contac t Referred To Contact RADIOLOGY Procedures CT CERV SPINE WO CON Jayashree Rea MD Phone: tel: fax: Referral ID Status Reason Start Date Expiration Date Visits Re quested Visits Authorized [id number] Closed 10/08/2022 10/09/2023 1 1 * Imaging (Emergency) - Closed Specialty Diagnoses / Procedures Referred By Contac t Referred To Contact RADIOLOGY Procedures CT HEAD WO CON Jayashree Rea, MD Phone: tel: fax: Referral ID Status Reason Start Date Expiration Date Visits Re quested Visits Authorized [id number] Closed 10/08/2022 10/09/2023 1 1 Reason for Visit * Reason Comments Fall Encounter Details Date Type Department Care Team (Late st Contact Info) Description 10/08/2022 4:59 PM CDT - 10/08/2022 8:12 PM CDT [facility] [address] [place] [address] [place] [address] Jayashree Rea MD [address] [place] [id number] Fall Discharge Disposition: Other Facility with Planned Inpatient Readmission Social History Tobacco Use Types Packs/Day Years [...] place to sleep or slept in a assisted (including now)? No 10/09/2022 Comments No Sex and Gender Information Value Date Recorded Sex Assigned at Not on file Legal Sex Female 12:12 AM CDT Gender Identity Not on file Sexual Orientation Not on file documented as of this encounter Last Filed Vital Signs Vital Sign Reading Time Taken Comments Blood Pressure 139/60 10/08/2022 7:30 PM CDT Pulse 68 10/08/2022 5:08 PM CDT Temperature 36.8 ??C (98.2 ??F) 10/08/2022 5:08 PM CD T Respiratory Rate 18 10/08/2022 5:08 PM CDT Oxygen Saturation 98% 10/08/2022 7:30 PM CDT Inhaled Oxygen Concentration - - Weight 54.4 kg (120 lb) 10/08/2022 5:08 PM CDT Height 157.5 cm (5' 2 ) 10/08/2022 5:08 PM CDT Body Mass Index 21.95 10/08/2022 5:08 PM CDT documented in this encounter Functional [...] 1:00 AM Atiya Ramirez RN Active * Because of a [...] 05/23/2019 02/06/2024 documented as of this encounter ED Notes * Janice Sun RN - 10/08/2022 8:11 PM CDT [facility] transporting patient to [facility] ER as a CAT 3 [facility]ama. * Janice Sun RN - 10/08/2022 7:55 PM CDT [facility] here to transport * Jayashree Rea MD - 10/08/2022 5:31 PM CDT Chief Complaint Chief Complaint Patient presents with Fall History of Present Illness Patient is an 82-year-old female who presents after ground-level fall. She tripped on her back stepin her garage. She is on anticoagulation therapy for atrial fibrillation with Eliquis. She has a laceration to her head and pain to her right side of her face. She denies neck pain. No chest pain or shortness of breath. Medical History ALLERGIES: Review of patient's allergies indicates: No Known Allergies MEDICATIONS: Prior to Admission medications Medication Sig Start Date End Date Taking? Authorizing Provider amiodarone 200 MG tablet TAKE EVERY THIRD DAY Yes Doc [facility] ARIPiprazole 15 MG tablet 08/07/20 Yes Doc [facility] calcium carb-cholecalciferol (CALTRATE 600+D) 600-20 MG-MCG tablet Take by mouth daily. Yes Doc [facility] D3 HIGH POTENCY 125 MCG (5000 UT) Cap Take 1 capsule by mouth daily. 07/24/20 Yes Doc [facility] docusate sodium 100 MG capsule 10/21/18 Yes Doc [facility] DULoxetine (CYMBALTA) 60 MG capsule Take 1 capsule (60 mg total) by mouth daily. Yes Doc [facility] ELIQUIS 2.5 MG tablet 04/07/19 Yes Doc [facility] escitalopram 20 MG tablet Take 2 tablets (40 mg total) by mouth daily. Yes Doc [facility] ferrous sulfate, 65 mg elemental, 325 (65 FE) MG tablet Take by mouth 2 (two) times daily. 11/29/17 Yes Doc [facility] gabapentin 100 MG capsule Take 1 capsule (100 mg total) by mouth 3 (three) times daily. 10/15/18 YesLourdes Foster MD GOODS[employer] ASPIRIN ADULT LOW ST 81 MG chewable tablet 01/11/19 Yes Doc [facility] lorazepam (ATIVAN) 0.5 MG tablet Take 1 tablet (0.5 mg total) by mouth 2 (two) times daily. 10/15/18Yes Lourdes Foster MD magnesium oxide 400 (240 Mg) MG tablet 12/23/18 Yes Doc [facility] metoprolol succinate 50 MG 24 hr tablet Take 0.5 tablets (25 mg total) by mouth daily. 01/21/18 Reji Hanna MD oxybutynin 5 MG tablet 05/01/19 Yes Doc [facility] sucralfate 1 G tablet 04/28/19 Yes Doc [facility] SUMAtriptan (IMITREX) 50 MG tablet Take 1 tablet (50 mg total) by mouth daily as needed for Migraine. 12/09/17 Yes Doc [facility] traMADol 50 MG tablet 05/23/19 Yes Doc [facility] acetaminophen 325 MG tablet 12/24/18 [facility] HYDROcodone-acetaminophen (NORCO) 5-325 MG tablet Take 1 tablet by mouth every 6 (six) hours as needed. Indications: Acute Pain < 7 Day Supply 10/13/22 Deanna Gonzalez PA-C MAGNESIUM-OXIDE 400 (241.3 Mg) MG tablet 04/07/19 [facility] metoprolol succinate ER 25 MG 24 hr tablet 05/08/19 Doc [facility] omeprazole 20 MG capsule 05/02/19 Doc [facility] Polyethylene Glycol 3350 (PEG 3350) Powder 12/24/18 Doc [facility] PAST MEDICAL HISTORY: Past Medical History: Diagnosis Date Anxiety Atrial fibrillation (CMS/HCC) on Eliquis Coronary artery disease Depression GERD [...] Systems Review of Systems Constitutional: Negative for chills and fever. HENT: Negative for ear pain and sore throat. Eyes: Negative for visual disturbance. Respiratory: Negative for cough, shortness of breath and wheezing. Cardiovascular: Negative for chest pain, palpitations and leg swelling. Gastrointestinal: Negative for abdominal pain, nausea and vomiting. Endocrine: Negative. Genitourinary: Negative for dysuria, flank pain and frequency. Musculoskeletal: Negative for back pain and neck pain. Skin: Positive for wound. Negative for rash. Allergic/Immunologic: Negative. Neurological: Positive for headaches. Negative for dizziness. Psychiatric/Behavioral: Negative. Physical Exam Filed Vitals: 10/08/22 1708 10/08/22 1830 10/08/22 1900 10/08/22 1930 BP: 121/64 135/71 (!) 142/70 139/60 Pulse: 68 Resp: 18 Temp: 98.2 ??F (36.8 ??C) TempSrc: Oral SpO2: 97% 99% 99% 98% Weight: 54.4 kg (120 lb) Height: 5' 2 (1.575 m) Physical Exam Vitals and nursing note reviewed. Constitutional: Appearance: Normal appearance. HENT: Nose: Nose normal. Mouth/Throat: Mouth: Mucous membranes are moist. Eyes: Extraocular Movements: Extraocular movements intact. Conjunctiva/sclera: Conjunctivae normal. Pupils: Pupils are equal, round, and reactive to light. Neck: Comments: C-collar placed Cardiovascular: Rate and Rhythm: Normal rate. Pulmonary: Effort: Pulmonary effort is normal. Abdominal: General: Bowel sounds are normal. Palpations: Abdomen is soft. Tenderness: There is no abdominal tenderness. Musculoskeletal: General: Normal range of motion. Neurological: General: No focal deficit present. Mental Status: She is alert and oriented to person, place, and time. Mental status is at baseline. Diagnostic Studies / Procedures ELECTROCARDIOGRAMS: No results found for this visit on 10/08/22. LABORATORY STUDIES: Results for orders placed or performed during the hospital encounter of 10/08/22 CBC W/DIFF AUTOMATED Result Value Ref Range WBC 6.97 4.00 - 10.80 x10'3/uL RBC 3.32 (L) 4.10 - 5.40 x10'6/uL HGB 10.4 (L) 12.0 - 16.0 G/DL HCT 30.2 (L) 36.0 - 47.0 % MCV 91.0 78.0 - 100.0 FL MCH 31.3 (H) 27.0 - 31.0 PG MCHC 34.4 33.0 - 36.0 G/DL RDW 11.9 11.5 - 14.5 % PLT 169 150 - 350 x10'3/uL MPV 11.5 (H) 7.4 - 10.4 FL CBC COMMENT NORMAL REFERENCE RANGE NOT ESTABLISHED FOR THE PROPORTIONAL LEUKOCYTE DIFFERENTIAL. NEUTROPHILS 77.7 % LYMPHOCYTES 11.0 % MONOCYTES 8.6 % EOSINOPHILS 1.7 % BASOPHILS 0.6 % IMMATURE GRANS 0.4 % NRBC 0.0 % ABS. NEUTROPHILS 5.41 1.60 - 8.30 x10'3/uL ABS. LYMPHOCYTES 0.77 (L) 0.80 - 4.70 x10'3/uL ABS. MONOCYTES 0.60 0.00 - 1.50 x10'3/uL ABS. EOSINOPHILS 0.12 0.00 - 0.40 x10'3/uL ABS. BASOPHILS 0.04 0.00 - 0.20 x10'3/uL ABS. IMMATURE GRANULOCYTES 0.03 0.00 - 0.03 x10'3/uL ABS. NUCLEATED RBC'S 0.00 0.00 x10'3/uL COMPREHENSIVE METABOLIC PANEL Result Value Ref Range SODIUM S/P/B 130 (L) 136 - 145 MMOL/L POTASSIUM S/P/B 3.7 3.5 - 5.1 MMOL/L CHLORIDE S/P/B 98 98 - 107 MMOL/L CO2 25.6 21.0 - 32.0 MMOL/L GLUCOSE 131 (H) 70 - 99 MG/DL BUN 17 6 - 24 MG/DL CREATININE S/P/B 1.14 (H) 0.55 - 1.02 MG/DL CALCIUM S/P/B 8.7 8.4 - 10.5 MG/DL BILIRUBIN TOTAL S/P/B 0.4 0.2 - 1.0 MG/DL ALKALINE PHOSPHATASE S/P/B 98 55 - 142 U/L AST 14 (L) 15 - 37 U/L ALT 12 (L) 14 - 59 U/L TOTAL PROTEIN S/P/B 5.5 (L) 6.4 - 8.2 G/DL ALBUMIN S/P/B 3.0 (L) 3.4 - 5.0 G/DL ANION GAP 6.4 5.0 - 15.0 MMOL/L OSMOLALITY (CALC) 273 MOSM/KG GFR ESTIMATE 48 (L) >89 ML/MIN/1.73 M2 GFR NOTES GFR REFERENCES: URINALYSIS Result Value Ref Range COLOR (U) YELLOW TRANSPARENCY CLEAR SPECIFIC GRAVITY (U) 1.010 1.000 - 1.025 U PH 5.5 5.0 - 8.0 LEUKOCYTES (U) NEGATIVE NEGATIVE NITRITES NEGATIVE NEGATIVE PROTEIN (U) NEGATIVE NEGATIVE GLUCOSE (U) NEGATIVE NEGATIVE KETONES (U) NEGATIVE NEGATIVE UROBILINOGEN 0.2 <1.0 EU/DL BILIRUBIN (U) NEGATIVE NEGATIVE BLOOD (U) TRACE (A) NEGATIVE WBC/HPF 0-5 0 - 5 /HPF RBC/HPF 0-5 0 - 5 /HPF EPI/LPF FEW /LPF BACTERIA (U) NONE SEEN /HPF MUCUS PRESENT OTHER CASTS (U) HYALINE /LPF IMAGING STUDIES CT HEAD WO CON Final Result by User, [id number] (10/08 1836) REASON FOR EXAM: Pain, status post ground level fall DISCUSSION: Comparison: Head CT, 16 Dec 2016 Technique: Nonenhanced CT images of the head and the facial bones. A dose lowering technique was used for this procedure, which may include, but is not limited to, dose reduction technique, automated exposure control, the use of iterative reconstruction, and ALARA (As Low As Reasonably Achievable) / Image Gently techniques. FINDINGS: HEAD: Symmetric appearance of the cerebral hemispheres, without evidence of significant intracranial mass effect or midline shift. Atherosclerosis of the intracranial vasculature. Moderate chronic small vessel ischemic changes of the white matter. No intracranial hemorrhage or abnormal extra-axial fluid collection is identified. Ventricles are proportional to the degree of global cerebral volume loss, without evidence of hydrocephalus. 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 Evaluation of the posterior fossa is unremarkable. No depressed fracture of the calvarium. MAXILLOFACIAL: Intact nasal septum and bilateral nasal bones, without evidence of fracture. No significant deviation of the nasal septum. Nasal cavity is clear without significant abnormality. Bony orbits are intact without evidence of fracture. Preseptal soft tissues are normal. Extraocular muscles are within normal limits. No abnormality within the postseptal orbital soft tissues. Intraconal structures are normal. Paranasal sinuses demonstrate intact osseous marley and are well aerated. Maxilla and anterior nasal spine are intact. No evidence of fracture of the zygomatic arches or the pterygoid plates. No CT evidence of mandibular fracture or subluxation of the mandibular condyles. No skull base fracture is identified. Mastoid air cells are clear. Gauze dressing overlies the right supraorbital region. IMPRESSION: 1. No acute intracranial abnormality. 2. No acute abnormality of the facial bones. 3. Chronic intracranial senescent changes. Referred By: Interpreted By: Rivera Coreas MD, 10/08/2022 6:[address] CERV SPINE WO CON Final Result by User, [id number] (10/08 1836) INDICATION: Neck trauma (Age >= 65y); pain, status post ground level fall COMPARISON: Cervical CT, 16 Dec 2016 TECHNIQUE: Nonenhanced CT images were obtained of the cervical spine. A dose lowering technique was used for this procedure, which may include, but is not limited to, dose reduction technique, automated exposure control, the use of iterative reconstruction, and ALARA (As Low As Reasonably Achievable) / Image Gently techniques. FINDINGS: Nonenhanced CT of the cervical spine demonstrates reversal of normal cervical lordosis, likely attributable to patient positioning versus muscle spasm. No evidence of traumatic subluxation. Trace anterolisthesis of C2 on C3 and C3 on C4. Vertebral body heights are maintained. There is normal alignment at the craniocervical junction. Interval appearance of a cortical defect in the anterior and posterior marley of the left transverse foramen of C5, axial series 3, images 51-49. Visualized skull base appears normal. Multilevel facet and uncovertebral hypertrophy bilaterally. Posterior disc osteophyte complexes at C4-C5, C5-C6, and C6-C7. Mild to moderate bilateral foraminal stenosis these levels. No significant spinal canal stenosis. The visualized perivertebral soft tissues and lung apices exhibit no acute abnormality. Atherosclerosis of the carotid arteries. IMPRESSION: 1. Interval appearance of an age-indeterminate fracture of the left transverse foramen of C5. Recommend further evaluation with CTA. 2. No CT evidence of acute cervical subluxation. 3. Chronic degenerative changes of the cervical spine, as above. Referred By: Interpreted By: Rivera Coreas MD, 10/08/2022 6:[address] FACIAL BONES WO CON Final Result by User, [id number] (10/08 1836) REASON FOR EXAM: Pain, status post ground level fall DISCUSSION: Comparison: Head CT, 16 Dec 2016 Technique: Nonenhanced CT images of the head and the facial bones. A dose lowering technique was used for this procedure, which may include, but is not limited to, dose reduction technique, automated exposure control, the use of iterative reconstruction, and ALARA (As Low As Reasonably Achievable) / Image Gently techniques. FINDINGS: HEAD: Symmetric appearance of the cerebral hemispheres, without evidence of significant intracranial mass effect or midline shift. Atherosclerosis of the intracranial vasculature. Moderate chronic small vessel ischemic changes of the white matter. No intracranial hemorrhage or abnormal extra-axial fluid collection is identified. Ventricles are proportional to the degree of global cerebral volume loss, without evidence of hydrocephalus. 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 Evaluation of the posterior fossa is unremarkable. No depressed fracture of the calvarium. MAXILLOFACIAL: Intact nasal septum and bilateral nasal bones, without evidence of fracture. No significant deviation of the nasal septum. Nasal cavity is clear without significant abnormality. Bony orbits are intact without evidence of fracture. Preseptal soft tissues are normal. Extraocular muscles are within normal limits. No abnormality within the postseptal orbital soft tissues. Intraconal structures are normal. Paranasal sinuses demonstrate intact osseous marley and are well aerated. Maxilla and anterior nasal spine are intact. No evidence of fracture of the zygomatic arches or the pterygoid plates. No CT evidence of mandibular fracture or subluxation of the mandibular condyles. No skull base fracture is identified. Mastoid air cells are clear. Gauze dressing overlies the right supraorbital region. IMPRESSION: 1. No acute intracranial abnormality. 2. No acute abnormality of the facial bones. 3. Chronic intracranial senescent changes. Referred By: Interpreted By: Rivera Coreas MD, 10/08/2022 6:13 PM ED Course / Medical Decision Making Medical Decision Making Patient presented with a ground-level fall and head trauma. Noted to have cervical spine fracture. Patient will be transferred to trauma surgery. Problems Addressed: Cervical spine fracture (CMS/HCC): acute illness or injury Amount and/or Complexity of Data Reviewed Labs: ordered. Radiology: ordered. Risk Decision regarding hospitalization. Critical Care Total time providing critical care: 45 minutes ED Course as of 10/14/22318 [facility] Oct 08, 20221920 Dr. Biggs the trauma surgeon agreed to accept patient for transfer. [AK] ED Course User Index [AK] Jayashree Rea MD Clinical Impression Cervical spine fracture (CMS/HCC) (Primary) Disposition: Transfer to Another Facility Jayashree Rea MD 10/14/22318 * Maribel Clay RN - 10/08/2022 5:04 PM CDT Patient BIBEMS after a fall from the step in the garage. Patient fell onto concrete floor and hit above right eyebrow. Steady bleeding from laceration noted on arrival to ER despite EMS holding pressure. Gauze and coban wrapped around patient's head and bleeding controlled. Patient does take a blood thinner. Denies LOC. * Maribel Clay RN - 10/08/2022 4:59 PM CDT Bed: 02 Expected date: 10/08/22 Expected time: Means of arrival: Comments: [id number] 82 yo female fall documented in this encounter Plan of Treatment Not on file documented as of this encounter Procedures Procedure Name Priority Date/Time Associated Diagnosis Comments HC URINALYSIS AUTO W/MICRO STAT 10/08/2022 6:[address] HEAD WO CON STAT 10/08/2022 6:[address] FACIAL BONES WO CON STAT 6:[address] CERV SPINE WO CON STAT 10/08/2022 6:03 PM CDT COMPREHENSIVE METABOLIC PANEL STAT 10/08/2022 5:42 PM CDT CBC W/DIFF AUTOMATED STAT 10/08/2022 5:42 PM CDT documented in this encounter Results * (ABNORMAL) URINALYSIS (10/08/2022 6:32 PM CDT) COLOR (U) YELLOW 10/08/2022 6:48 PM CDT [facility] TRANSPARENCY CLEAR 10/08/2022 6:48 PM CDT [facility] SPECIFIC GRAVITY (U) 1.010 1.000 - 1.025 10/08/2022 6:48 PM CDT [facility] U PH 5.5 5.0 - 8.0 10/08/2022 6:48 PM CDT [facility] LEUKOCYTES (U) NEGATIVE NEGATIVE 10/08/2022 6:48 PM CDT [facility] NITRITES NEGATIVE NEGATIVE 10/08/2022 6:48 PM CDT [facility] PROTEIN (U) NEGATIVE NEGATIVE 10/08/2022 6:48 PM CDT [facility] GLUCOSE (U) NEGATIVE NEGATIVE 10/08/2022 6:48 PM CDT [facility] KETONES MG/DL (U) NEGATIVE NEGATIVE 10/08/2022 6:48 PM CDT [facility] UROBILINOGEN 0.2 <1.0 EU/DL 10/08/2022 6:48 PM CDT [facility] BILIRUBIN (U) NEGATIVE NEGATIVE 10/08/2022 6:48 PM CDT [facility] BLOOD (U) TRACE(A) NEGATIVE 10/08/2022 6:48 PM CDT [facility] WBC/HPF 0-5 0 - 5 /HPF 10/08/2022 6:48 PM CDT [facility] RBC/HPF 0-5 0 - 5 /HPF 10/08/2022 6:48 PM CDT [facility] EPI/LPF FEW /LPF 10/08/2022 6:48 PM CDT [facility] BACTERIA (U) NONE SEEN /HPF 10/08/2022 6:48 PM CDT [facility] MUCUS PRESENT 10/08/2022 6:48 PM CDT [facility] OTHER CASTS (U) HYALINE /LPF 6:48 PM CDT [facility] Comment:0-5 URINE SPECIMEN OBTAINED BY CLEAN CATCH PROCEDURE / Unknown 10/08/2022 6:32 PM CDT us Jayashree Rea MD URINE ORDERABLES Final Re sult [facility] [address] [place] [address], * CT FACIAL BONES WO CON (10/08/2022 6:03 PM CDT) Anatomical Region Laterality Modality Facial Computed Tomogra phy 10/08/2022 6:13 PM CDT Impressions 10/08/2022 6:36 PM CDT IMPRESSION: 1. ??No acute intracranial abnormality. 2. ??No acute abnormality of the facial bones. 3. ??Chronic intracranial senescent changes. Referred By: ?? Interpreted By: Rivera Coreas MD, 10/08/2022 6:13 PM Narrative 10/08/2022 6:36 PM CDT REASON FOR EXAM: Pain, status post ground level fall DISCUSSION: Comparison: Head CT, 16 Dec 2016 Technique: Nonenhanced CT images of the head and the facial bones. A dose lowering technique was used for this procedure, which may include, but is not limited to, dose reduction technique, automated exposure control, the use of iterative reconstruction, and ALARA (As Low As Reasonably Achievable) / Image Gently techniques. FINDINGS: HEAD: Symmetric appearance of the cerebral hemispheres, without evidence of significant intracranial mass effect or midline shift. Atherosclerosis of the intracranial vasculature. Moderate chronic small vessel ischemic changes of the white matter. No intracranial hemorrhage or abnormal extra-axial fluid collection is identified. Ventricles are proportional to the degree of global cerebral volume loss, without evidence of hydrocephalus. 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 Evaluation of the posterior fossa is unremarkable. No depressed fracture of the calvarium. MAXILLOFACIAL: Intact nasal septum and bilateral nasal bones, without evidence of fracture. No significant deviation of the nasal septum. Nasal cavity is clear without significant abnormality. Bony orbits are intact without evidence of fracture. Preseptal soft tissues are normal. Extraocular muscles are within normal limits. No abnormality within the postseptal orbital soft tissues. Intraconal structures are normal. Paranasal sinuses demonstrate intact osseous marley and are well aerated. Maxilla and anterior nasal spine are intact. No evidence of fracture of the zygomatic arches or the pterygoid plates. No CT evidence of mandibular fracture or subluxation of the mandibular condyles. No skull base fracture is identified. Mastoid air cells are clear. Gauze dressing overlies the right supraorbital region. Procedure Note Rivera Coreas MD - 10/08/2022 REASON FOR EXAM: Pain, status post ground level fall DISCUSSION: Comparison: Head CT, 16 Dec 2016 Technique: Nonenhanced CT images of the head and the facial bones. A dose loweringtechnique was used for this procedure, which may include, but is notlimited to, dose reduction technique, automated exposure control, the useof iterative reconstruction, and ALARA (As Low As Reasonably Achievable) /Image Gently techniques. FINDINGS: HEAD: Symmetric appearance of the cerebral hemispheres, without evidence ofsignificant intracranial mass effect or midline shift. Atherosclerosis of the intracranial vasculature. Moderate chronic small vessel ischemic changes of the white matter. Nointracranial hemorrhage or abnormal extra-axial fluid collection isidentified. Ventricles are proportional to the degree of global cerebral volume loss,without evidence of hydrocephalus. Incidental note of a cavum valiinterpositi, anatomic variant. Evaluation of the posterior fossa is unremarkable. No depressed fracture of the calvarium. MAXILLOFACIAL: Intact nasal septum and bilateral nasal bones, without evidence offracture. No significant deviation of the nasal septum. Nasal cavity isclear without significant abnormality. Bony orbits are intact without evidence of fracture. Preseptal softtissues are normal. Extraocular muscles are within normal limits. Noabnormality within the postseptal orbital soft tissues. Intraconalstructures are normal. Paranasal sinuses demonstrate intact osseous marley and are well aerated. Maxilla and anterior nasal spine are intact. No evidence of fracture ofthe zygomatic arches or the pterygoid plates. No CT evidence of mandibular fracture or subluxation of the mandibularcondyles. No skull base fracture is identified. Mastoid air cells are clear. Gauze dressing overlies the right supraorbital region. IMPRESSION: 1. No acute intracranial abnormality. 2. No acute abnormality of the facial bones. 3. Chronic intracranial senescent changes. Referred By: Interpreted By: Rivera Coreas MD, 10/08/2022 6:13 PM us Jayashree Rea MD CT Final Res ult * CT CERV SPINE WO CON (10/08/2022 6:03 PM CDT) Anatomical Region Laterality Modality Spine Computed Tomogra phy 10/08/2022 6:13 PM CDT Impressions 10/08/2022 6:36 PM CDT IMPRESSION: 1. ??Interval appearance of an age-indeterminate fracture of the left transverse foramen of C5. Recommend further evaluation with CTA. 2. ??No CT evidence of acute cervical subluxation. 3. ??Chronic degenerative changes of the cervical spine, as above. Referred By: ?? Interpreted By: Rivera Coreas MD, 10/08/2022 6:13 PM Narrative 10/08/2022 6:36 PM CDT INDICATION: Neck trauma (Age >= 65y); pain, status post ground level fall COMPARISON: Cervical CT, 16 Dec 2016 TECHNIQUE: Nonenhanced CT images were obtained of the cervical spine. A dose lowering technique was used for this procedure, which may include, but is not limited to, dose reduction technique, automated exposure control, the use of iterative reconstruction, and ALARA (As Low As Reasonably Achievable) / Image Gently techniques. FINDINGS: Nonenhanced CT of the cervical spine demonstrates reversal of normal cervical lordosis, likely attributable to patient positioning versus muscle spasm. No evidence of traumatic subluxation. Trace anterolisthesis of C2 on C3 and C3 on C4. Vertebral body heights are maintained. There is normal alignment at the craniocervical junction. Interval appearance of a cortical defect in the anterior and posterior marley of the left transverse foramen of C5, axial series 3, images 51-49. Visualized skull base appears normal. Multilevel facet and uncovertebral hypertrophy bilaterally. Posterior disc osteophyte complexes at C4-C5, C5-C6, and C6-C7. Mild to moderate bilateral foraminal stenosis these levels. No significant spinal canal stenosis. The visualized perivertebral soft tissues and lung apices exhibit no acute abnormality. Atherosclerosis of the carotid arteries. Procedure Note Rivera Coreas MD - 10/08/2022 INDICATION: Neck trauma (Age >= 65y); pain, status post ground levelfall COMPARISON: Cervical CT, 16 Dec 2016 TECHNIQUE: Nonenhanced CT images were obtained of the cervical spine. Adose lowering technique was used for this procedure, which may include,but is not limited to, dose reduction technique, automated exposurecontrol, the use of iterative reconstruction, and ALARA (As Low AsReasonably Achievable) / Image Gently techniques. FINDINGS: Nonenhanced CT of the cervical spine demonstrates reversal of normalcervical lordosis, likely attributable to patient positioning versusmuscle spasm. No evidence of traumatic subluxation. Trace anterolisthesisof C2 on C3 and C3 on C4. Vertebral body heights are maintained. There isnormal alignment at the craniocervical junction. Interval appearance of a cortical defect in the anterior and posteriorwalls of the left transverse foramen of C5, axial series 3, [id number]. Visualized skull base appears normal. Multilevel facet and uncovertebral hypertrophy bilaterally. Posterior discosteophyte complexes at C4-C5, C5-C6, and C6-C7. Mild to moderatebilateral foraminal stenosis these levels. No significant spinal canalstenosis. The visualized perivertebral soft tissues and lung apices exhibit no acuteabnormality. Atherosclerosis of the carotid arteries. IMPRESSION: 1. Interval appearance of an age-indeterminate fracture of the lefttransverse foramen of C5. Recommend further evaluation with CTA. 2. No CT evidence of acute cervical subluxation. 3. Chronic degenerative changes of the cervical spine, as above. Referred By: Interpreted By: Rivera Coreas MD, 10/08/2022 6:13 PM us Jayashree Rea MD CT Final Res ult * CT HEAD WO CON (10/08/2022 6:03 PM CDT) Anatomical Region Laterality Modality Head Computed Tomogra phy 10/08/2022 6:13 PM CDT Impressions 10/08/2022 6:36 PM CDT IMPRESSION: 1. ??No acute intracranial abnormality. 2. ??No acute abnormality of the facial bones. 3. ??Chronic intracranial senescent changes. Referred By: ?? Interpreted By: Rivera Coreas MD, 10/08/2022 6:13 PM Narrative 10/08/2022 6:36 PM CDT REASON FOR EXAM: Pain, status post ground level fall DISCUSSION: Comparison: Head CT, 16 Dec 2016 Technique: Nonenhanced CT images of the head and the facial bones. A dose lowering technique was used for this procedure, which may include, but is not limited to, dose reduction technique, automated exposure control, the use of iterative reconstruction, and ALARA (As Low As Reasonably Achievable) / Image Gently techniques. FINDINGS: HEAD: Symmetric appearance of the cerebral hemispheres, without evidence of significant intracranial mass effect or midline shift. Atherosclerosis of the intracranial vasculature. Moderate chronic small vessel ischemic changes of the white matter. No intracranial hemorrhage or abnormal extra-axial fluid collection is identified. Ventricles are proportional to the degree of global cerebral volume loss, without evidence of hydrocephalus. 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 Evaluation of the posterior fossa is unremarkable. No depressed fracture of the calvarium. MAXILLOFACIAL: Intact nasal septum and bilateral nasal bones, without evidence of fracture. No significant deviation of the nasal septum. Nasal cavity is clear without significant abnormality. Bony orbits are intact without evidence of fracture. Preseptal soft tissues are normal. Extraocular muscles are within normal limits. No abnormality within the postseptal orbital soft tissues. Intraconal structures are normal. Paranasal sinuses demonstrate intact osseous marley and are well aerated. Maxilla and anterior nasal spine are intact. No evidence of fracture of the zygomatic arches or the pterygoid plates. No CT evidence of mandibular fracture or subluxation of the mandibular condyles. No skull base fracture is identified. Mastoid air cells are clear. Gauze dressing overlies the right supraorbital region. Procedure Note Rivera Coreas MD - 10/08/2022 REASON FOR EXAM: Pain, status post ground level fall DISCUSSION: Comparison: Head CT, 16 Dec 2016 Technique: Nonenhanced CT images of the head and the facial bones. A dose loweringtechnique was used for this procedure, which may include, but is notlimited to, dose reduction technique, automated exposure control, the useof iterative reconstruction, and ALARA (As Low As Reasonably Achievable) /Image Gently techniques. FINDINGS: HEAD: Symmetric appearance of the cerebral hemispheres, without evidence ofsignificant intracranial mass effect or midline shift. Atherosclerosis of the intracranial vasculature. Moderate chronic small vessel ischemic changes of the white matter. Nointracranial hemorrhage or abnormal extra-axial fluid collection isidentified. Ventricles are proportional to the degree of global cerebral volume loss,without evidence of hydrocephalus. Incidental note of a cavum valiinterpositi, anatomic variant. Evaluation of the posterior fossa is unremarkable. No depressed fracture of the calvarium. MAXILLOFACIAL: Intact nasal septum and bilateral nasal bones, without evidence offracture. No significant deviation of the nasal septum. Nasal cavity isclear without significant abnormality. Bony orbits are intact without evidence of fracture. Preseptal softtissues are normal. Extraocular muscles are within normal limits. Noabnormality within the postseptal orbital soft tissues. Intraconalstructures are normal. Paranasal sinuses demonstrate intact osseous marley and are well aerated. Maxilla and anterior nasal spine are intact. No evidence of fracture ofthe zygomatic arches or the pterygoid plates. No CT evidence of mandibular fracture or subluxation of the mandibularcondyles. No skull base fracture is identified. Mastoid air cells are clear. Gauze dressing overlies the right supraorbital region. IMPRESSION: 1. No acute intracranial abnormality. 2. No acute abnormality of the facial bones. 3. Chronic intracranial senescent changes. Referred By: Interpreted By: Rivera Coreas MD, 10/08/2022 6:13 PM us Jayashree Rea MD CT Final Res ult * (ABNORMAL) COMPREHENSIVE METABOLIC PANEL (10/08/2022 5:42 PM CDT) SODIUM S/P/B 130(L) 136 - 145 MMOL/L 10/08/2022 6:16 PM CDT [facility] POTASSIUM S/P/B 3.7 3.5 - 5.1 MMOL/L 10/08/2022 6:16 PM CDT [facility] CHLORIDE S/P/B 98 98 - 107 MMOL/L 10/08/2022 6:16 PM CDT [facility] CO2 25.6 21.0 - 32.0 MMOL/L 10/08/2022 6:16 PM CDT [facility] GLUCOSE 131(H) 70 - 99 MG/DL 10/08/2022 6:16 PM CDT [facility] Comment: FASTING GLUCOSE 100 TO 125 MG/DL IS CONSISTENT WITH IMPAIRED FASTING GLUCOSE. FASTING GLUCOSE >125 MG/DL IS CONSISTENT WITH DIABETES. RANDOM GLUCOSE >200 MG/DL WITH HYPERGLYCEMIC SYMPTOMS IS CONSISTENT WITH DIABETES. PER ADA GUIDELINES BUN 17 6 - 24 MG/DL 10/08/2022 6:16 PM CDT [facility] CREATININE S/P/B 1.14(H) 0.55 - 1.02 MG/DL 10/08/2022 6:16 PM CDT [facility] CALCIUM S/P/B 8.7 8.4 - 10.5 MG/DL 10/08/2022 6:16 PM CDT [facility] BILIRUBIN TOTAL S/P/B 0.4 0.2 - 1.0 MG/DL 10/08/2022 6:16 PM CDT [facility] Comment: THIS ASSAY IS NOT RECOMMENDED FOR PATIENTS UNDERGOING TREATMENT WITH ELTROMBOPAG DUE TO THE POTENTIAL FOR FALSELY ELEVATED RESULTS. ALKALINE PHOSPHATASE S/P/B 98 55 - 142 U/L 10/08/2022 6:16 PM CDT [facility] AST 14(L) 15 - 37 U/L 10/08/2022 6:16 PM CDT [facility] ALT 12(L) 14 - 59 U/L 10/08/2022 6:16 PM CDT [facility] TOTAL PROTEIN S/P/B 5.5(L) 6.4 - 8.2 G/DL 10/08/2022 6:16 PM CDT [facility] ALBUMIN S/P/B 3.0(L) 3.4 - 5.0 G/DL 10/08/2022 6:16 PM CDT [facility] ANION GAP 6.4 5.0 - 15.0 MMOL/L 10/08/2022 6:16 PM CDT [facility] OSMOLALITY (CALC) 273 MOSM/KG 023 6:16 PM CDT [facility] Comment:REFERENCE RANGE NOT ESTABLISHED GFR ESTIMATE 48(L) >89 ML/MIN/1. 73 M2 10/08/2022 6:16 PM CDT [facility] GFR NOTES GFR REFERENCE S: 10/08/2022 6:16 PM CDT [facility] Comment: THE ESTIMATED GFR IS [...] ml/min/1.73 m2 G5,KIDNEY FAILURE: <15 ml/min/1.73 m2 10/08/2022 5:42 PM CDT us Jayashree Rea MD LABORATORY Final Res ult [facility] [address] [place] [address], * (ABNORMAL) CBC W/DIFF AUTOMATED (10/08/2022 5:42 PM CDT) WBC 6.97 4.00 - 10.80 x10'3/uL 10/08/2022 6:11 PM CDT [facility] RBC 3.32(L) 4.10 - 5.40 x10'6/uL 10/08/2022 6:11 PM CDT [facility] HGB 10.4(L) 12.0 - 16.0 G/DL 10/08/2022 6:11 PM CDT [facility] HCT 30.2(L) 36.0 - 47.0 % 10/08/2022 6:11 PM CDT [facility] MCV 91.0 78.0 - 100.0 FL 10/08/2022 6:11 PM CDT [facility] MCH 31.3(H) 27.0 - 31.0 PG 10/08/2022 6:11 PM CDT [facility] MCHC 34.4 33.0 - 36.0 G/DL 10/08/2022 6:11 PM CDT [facility] RDW 11.9 11.5 - 14.5 % 10/08/2022 6:11 PM CDT [facility] PLT 169 150 - 350 x10'3/uL 10/08/2022 6:11 PM CDT [facility] MPV 11.5(H) 7.4 - 10.4 FL 10/08/2022 6:11 PM CDT [facility] CBC COMMENT NORMAL REFERENCE RANGE NOT ESTABLISHED FOR THE PROPORTIONAL LEUKOCYTE DIFFERENTIAL. 10/08/2022 6:11 PM CDT [facility] NEUTROPHILS % 77.7 % 10/08/2022 6:11 PM CDT [facility] LYMPHOCYTES % 11.0 % 10/08/2022 6:11 PM CDT [facility] MONOCYTES % 8.6 % 10/08/2022 6:11 PM CDT [facility] EOSINOPHILS % 1.7 % 10/08/2022 6:11 PM CDT [facility] BASOPHILS % 0.6 % 10/08/2022 6:11 PM CDT [facility] IMMATURE GRANS % 0.4 % 10/09/19 6:11 PM CDT [facility] NRBC 0.0 % 10/08/2022 6:11 PM CDT [facility] ABS. NEUTROPHILS 5.41 1.60 - 8.30 x10'3/uL 10/08/2022 6:11 PM CDT [facility] ABS. LYMPHOCYTES 0.77(L) 0.80 - 4.70 x10'3/uL 10/08/2022 6:11 PM CDT [facility] ABS. MONOCYTES 0.60 0.00 - 1.50 x10'3/uL 10/08/2022 6:11 PM CDT [facility] ABS. EOSINOPHILS 0.12 0.00 - 0.40 x10'3/uL 10/08/2022 6:11 PM CDT [facility] ABS. BASOPHILS 0.04 0.00 - 0.20 x10'3/uL 10/08/2022 6:11 PM CDT [facility] ABS. IMMATURE GRANULOCYTES 0.03 0.00 - 0.03 x10'3/uL 10/08/2022 6:11 PM CDT [facility] ABS. NUCLEATED RBC'S 0.00 0.00 x10'3/uL 10/08/2022 6:11 PM CDT [facility] 10/08/2022 5:42 PM CDT us Jayashree Rea MD LABORATORY Final Res ult [facility] [place] [address], documented in this encounter Visit Diagnoses Diagnosis Cervical spine fracture (CMS/HCC [facility])- Primary Closed fracture of cervical vertebra, unspecified level without mention of spinal cord injury documented in this encounter Administered Medications Inactive Administered Medications - up to 3 most recent administrations Medication Order MAR Action Action Date Dose Rate Site sodium chloride 0.9% bolus infusion 1,000 mL 1,000 mL, Intravenous, Administer over 60 Minutes, Once, 1 dose, On Julee 10/08/22 at 1900 New Bag 10/08/2022 7:37 PM CDT 1,000 mLs documented in this encounter Active and Recently Administered Medications Times are shown in CDT. Scheduled Medication Order 10/06/2022 10/07/2022 10/08/2022 sodium chloride 0.9% bolus infusion 1,000 mL (COMPLETED) 1,000 mL, Intravenous, Administer over 60 Minutes, Once, 1 dose, On Julee 10/08/22 at 1900 1937 (New Bag - Prov ider: Janice Sun, RN)2011 (Infusing on Discharge from Facility - Provider: Janice Sun RN) documented in this encounter Care Teams Multi Line Claims Adjuster Relationship Specialty Start Date End Date Jarret Kwong MD [address] [place] [phone] PCP - General FAMILY PRACTICE 12/27/17 Robbin Urban MD [address] [place] [phone] [place] [employer] CARDIOVASCULAR DISEASE 04/24/19 documented as of this encounter
--- OUTSIDE RECORDS SUMMARY | 2024-03-20 22:46 | XMS_ITS | Encounter Summary ---
Author Organization [facility] Address [address] [place] [address]. [place] [address] [place] [address] Care Team Providers Care Wafer Machine Operator Name Role Phone Jarret Kwong MD Primary Care Provider Robbin Urban MD Unavailable [phone] Encounter Details Date Type Department Care Team (Latest Contact Info) Description 12/25/2021 9:27 AM CDT - 12/25/2021 9:31 AM CDT Hospital Encounter [address] [place] [address] Jarret Kwong MD [address] [place] [phone] Discharge Disposition: Home or Self Care (Routine [...] suspected to have Coronavirus/COVID-19? No / Unsure 12/25/2021 9:26 AM CDT documented as of this encounter Functional [...] Assessment Author Status No 10/12/2018 1:00 AM SAADIAT Atiya Haas RN Active * Because of a physical, mental, or emotional condition, do you have difficulty doing errands alone such as visiting a doctor's office or shopping? Answer Date of Assessment Author Status No 10/12/2018 1:00 AM SAADIAT Atiya Haas RN Active documented as of this encounter Mental Status * Because of a physical, mental, or emotional condition, do you have serious difficulty concentrating, remembering, or making decisions? Answer Entry Date Author Status No 10/12/2018 1:00 AM SAADIAT Atiya Haas RN Active documented in this encounter Medications [...] on filedocumented in this encounter Care Teams Wafer Machine Operator Relationship Specialty Start Date End Date Jarret Kwong MD [address] [place] [phone] PCP - General FAMILY PRACTICE 12/27/17 Robbin Urban MD [address] [place] [id number] [employer] CARDIOVASCULAR DISEASE 04/24/19 documented as of this encounter
--- OUTSIDE RECORDS SUMMARY | 2024-03-20 22:46 | XMS_ITS | Encounter Summary ---
Author Organization [facility] Address [address] [place] [address]. [place] [address] [place] [address] Care Team Providers Care Mail Handler Assistant Name Role Phone Jarret Martinez MD Primary Care Provider Go Hanna MD Unavailable Unavailable Reason for Visit * Reason Comments Follow Up Encounter Details Date Type Department Care Team (Late st Contact Info) Description 11/02/2018 12:15 PM CDT Office Visit [facility] AT [address] [phone] Go Hanna MD Follow Up Social History Tobacco Use Types Packs/Day Years [...] Sign Reading Time Taken Comments Blood Pressure 122/60 11/02/2018 2:46 PM CDT Pulse 68 11/02/2018 2:46 PM CDT Temperature - - Respiratory Rate - - Oxygen Saturation - - Inhaled Oxygen Concentration - - Weight 65.7 kg (144 lb 12.8 oz) 11/02/2018 2:46 PM CDT Height 157.5 cm (5' 2 ) 11/02/2018 2:46 PM CDT Body Mass Index 26.48 11/02/2018 2:46 PM CDT documented in this [...] AM SAADIAT Atiya Haas RN Active * Do you [...] documented in this encounter Progress Notes * Go Hanna MD - 11/02/2018 12:[address] Martinez: I saw Emerald Reeves for hospital discharge followup and also for preoperative clearance. She is niko pleasant 78-year-old lady who I saw in the hospital recently with severe GI bleeding and hemoglobin of 4. Her past medical history is significant for atrial fibrillation in the past with evidently aborted ablation in the past, who was treated with Amiodarone, rate control therapy and Pradaxa. She does have a history of partial gastrectomy. She was admitted with acute severe GI blood loss. Anticoagulation was stopped. She was transfused with blood. Her echocardiogram in the hospital demonstrated some concern about mitral regurgitation. Hence, she underwent WALDO showed again normal EF and severe mitral regurgitation, although the mitral valve anatomy is not suitable for MitraClip procedure. She was not in heart failure. I am told today that she was eventually diagnosed to have colon cancer and she has seen a colorectal surgeon, Dr. Shelton for possible surgery. She feels well. Her most recent hemoglobin was around 9. She denies any chest pain or chest tightness. Clinically, she does not appear to be in heart failure. I reviewed her echo again today with herand her son. IMPRESSION AND RECOMMENDATIONS: 1. Preop clearance. I think she should proceed with a colon surgery. She is not in overt heart failure. She does not have angina. I do not think it is a great idea to do mitral valve surgery, wait for her to recover from that which may be anywhere from 2-3 months and then do colon surgery since this carries a risk of metastasis from the cancer. I think her EF is normal and she would likely tolerate the colon surgery well at this point. There is of course going to be some risk of decompensated heart failure, but we will be happy to manage her perioperatively closely in the hospital at that time. 2. Once her colon cancer has been treated, then we can evaluate her for mitral valve regurgitation and proceed with other cardiac workup including cardiac surgical consultation for mitral valve repair with left atrial appendage closure. I will speak with Dr. Shelton and discuss with him. Thank you very much for allowing me to participate in the care of this nice lady. * Go Hanna MD - 11/02/2018 12:15 PM CDT Reason for Visit: Follow Up History of Present Illness: Recommendations and Plan: Medications: Current Outpatient Medications: ??? amiodarone 200 MG tablet, TAKE EVERY THIRD DAY, Disp: , Rfl: ??? aspirin 81 MG chewable tablet, Chew 1 tablet (81 mg total) by mouth daily for 30 days., Disp: 30 tablet, Rfl: 0 ??? calcium carb-cholecalciferol (CALTRATE 600+D) 600-800 MG-UNIT tablet, Take by mouth daily., Disp: , Rfl: ??? docusate sodium 100 MG capsule, , Disp: , Rfl: 0 ??? duloxetine (CYMBALTA) 60 MG capsule, Take 60 mg by mouth daily. , Disp: , Rfl: ??? escitalopram 20 MG tablet, Take 40 mg by mouth daily. , Disp: , Rfl: ??? ferrous sulfate, 65 mg elemental, 325 (65 FE) MG tablet, Take by mouth 2 (two) times daily., Disp: , Rfl: ??? gabapentin 100 MG capsule, Take 1 capsule (100 mg total) by mouth 3 (three) times daily., Disp:20 capsule, Rfl: 0 ??? lorazepam (ATIVAN) 0.5 MG tablet, Take 1 tablet (0.5 mg total) by mouth 2 (two) times daily., Disp: 10 tablet, Rfl: 0 ??? metoprolol succinate 50 MG 24 hr tablet, Take 0.5 tablets (25 mg total) by mouth daily., Disp: 30 tablet, Rfl: 12 ??? pantoprazole EC (PROTONIX) 40 MG tablet, Take 1 tablet (40 mg total) by mouth 2 (two) times a day for 30 days., Disp: 30 tablet, Rfl: 2 ??? sucralfate 1 GM/10ML suspension, Take 10 mLs (1 g total) by mouth every 6 (six) hours for 30 days., Disp: 1200 mL, Rfl: 0 ??? SUMAtriptan (IMITREX) 50 MG tablet, Take 50 mg by mouth daily as needed for Migraine. , Disp: ,Rfl: No Known Allergies Past Medical History: Diagnosis Date ??? Anxiety ??? Atrial fibrillation (CMS/HCC) ??? Coronary artery disease ??? Depression ??? GERD (gastroesophageal reflux disease) ??? Migraine ??? Mitral valve disorder Past Surgical History: Procedure Laterality Date ??? APPENDECTOMY ??? HYSTERECTOMY ??? TOTAL KNEE ARTHROPLASTY Social History Tobacco Use ??? Smoking status: Never Smoker ??? Smokeless tobacco: Never Used Substance Use Topics ??? Alcohol use: No Frequency: Never ??? Drug use: No Family History Problem Relation Name Age of Onset ??? Kidney Disease Mother ??? Heart Disease Father Family Status Relation Name Status ??? Mother (Not Specified) ??? Father (Not Specified) Review of Systems Constitutional: Positive for fatigue and weakness. Negative for recent unintentional weight gain and recent unintentional weight loss. HENT: Negative for new or significant hearing loss. Eyes: Negative for blurred vision and double vision. Respiratory: Negative for cough, new or significant shortness of breath and snoring. Cardiovascular: See HPI Gastrointestinal: Negative for blood in stool and melena. Genitourinary: Negative for dysuria. Musculoskeletal: Negative for myalgias and new or worsening joint stiffness/pain. Skin: Negative for rash. Neurological: Positive for dizziness and focal weakness. Negative for tingling/numbness. Endo/Heme/Allergies: Negative for new or significant bruising/bleeding and polydipsia. Psychiatric/Behavioral: Positive for depression, nervous/anxious and memory loss. Filed Vitals: 11/02/18 1446 BP: 122/60 Pulse: 68 Weight: 65.7 kg (144 lb 12.8 oz) Height: 5' 2 (1.575 m) Body mass index is 26.48 kg/m??. Physical Exam Rate/Rhythm: regular rhythm and normal rate . Heart Sounds: normal S1 and normal S2 murmur, Systolic murmur and 2/6. no gallop, no S3 sound and no S4 sound. . PMI: PMI not displaced. Pulses: normal pulses Right Carotid pulses 2+, Left Carotid pulses 2+, Right Femoral pulses 2+, Left Femoral pulses 2+, Right DP pulses 2+, Left DP pulses 2+, negative for edema Constitutional: healthy appearance not distressed. . Neck: neck supple no JVD. . Pulmonary/Chest Wall: effort normal and breath sounds normal . HEENT: teeth/gums normal and oropharynx clear and moist. . Abdomen: no tenderness, no mass, no hepatomegaly, no splenomegaly, abdominal aorta not palpably enlarged and no abdominal aortic bruit. . Eyes: conjunctivae normal. Neurological: alert, oriented x 3 and appropriate for situation, . Skin: dry and warm no cyanosis and no clubbing. Musculoskeletal: no kyphosis Cardiovascular Comments: Diagnoses/Impression: 1. Mitral valve insufficiency, unspecified etiology 2. Malignant neoplasm of colon, unspecified part of colon (CMS/HCC) Referring Provider: Jarret Martinez PCP: JARRET MARTINEZ MD documented in this encounter Plan of Treatment Not on file documented as of this encounter Visit Diagnoses Diagnosis Mitral valve insufficiency, unspecified etiology- Primary Malignant neoplasm of colon, unspecified part of colon (CMS/HCC HHS/HCC) Essential hypertension Unspecified essential hypertension documented in this encounter Care Teams Mail Handler Assistant Relationship Specialty Start Date End Date Jarret Martinez MD [address] [place] [phone] PCP - General FAMILY PRACTICE 12/27/17 Go Hanna MD [address] [place] [phone] INTERVENTIONAL CARDIOLOGY 12/27/17 04/23/19 documented as of this encounter
--- OUTSIDE RECORDS SUMMARY | 2024-03-20 22:46 | XMS_ITS | Encounter Summary ---
Author Organization [facility] Address [address] [place] [address]. [place] [address] [place] [address] Care Team Providers Care Materials Tech Name Role Phone Jarret Martinez MD Primary Care Provider [phone] Robbin Urban MD Unavailable [phone] Encounter Details Date Type Department Care Team (Latest Contact Info) Description 12/25/2021 9:32 AM CDT - 12/25/2021 11:59 PM CDT Hospital Encounter [facility] [address] [place] [address] Jarret Martinez MD [address] [place] [phone] Discharge Disposition: Home or Self Care [...] Procedure Name Priority Date/Time Associated Diagnosis Comments XR FOOT RT 3V Routine 12/25/2021 9:51 AM CDT Right foot pain documented in this encounter Results * XR FOOT RT 3V (12/25/2021 9:51 AM CDT) Anatomical Region Laterality Modality Foot Radiographic Ricarda ging 12/25/2021 10:0 4 AM CDT Impressions 12/25/2021 10:09 AM CDT IMPRESSION: Mild to moderate metatarsus varus/hallux valgus deformity. No significant arthritic or erosive changes. Localized soft tissue swelling medial to the first MTP likely representing bunion with gouty tophus probably less likely given normal appearance of the joint. Correlate with clinical findings.. Ordered By: JARRET MARTINEZ Interpreted By: Benjamin Schaefer MD, 12/25/2021 10:04 AM Narrative 12/25/2021 10:09 AM CDT Exam description: XR FOOT RT 3V Exam Time : 12/25/2021 9:51 AM Comparison Film : No previous available Indication: Right first toe pain radiating to medial side of foot.. Findings: Mild to moderate metatarsus varus/valgus valgus deformity. No significant arthritic changes are seen. There is some localized soft tissue swelling medial to the first MTP joint which may represent bunion formation with gouty tophus probably less likely given normal appearance of the joint. . No destructive bony abnormalities. Procedure Note Benjamin Schaefer MD - 12/25/2021 Exam description: XR FOOT RT 3V Exam Time : 12/25/2021 9:51 AM Comparison Film : No previous available Indication: Right first toe pain radiating to medial side of foot.. Findings: Mild to moderate metatarsus varus/valgus valgus deformity. No significantarthritic changes are seen. There is some localized soft tissue swellingmedial to the first MTP joint which may represent bunion formation withgouty tophus probably less likely given normal appearance of the joint. .No destructive bony abnormalities. IMPRESSION: Mild to moderate metatarsus varus/hallux valgus deformity. Nosignificant arthritic or erosive changes. Localized soft tissue swellingmedial to the first MTP likely representing bunion with gouty tophusprobably less likely given normal appearance of the joint. Correlate withclinical findings.. Ordered By: JARRET MARTINEZ Interpreted By: Benjamin Schaefer MD, 12/25/2021 10:04 AM Jarret Martinez MD GENERAL IMAGING Final Resul t documented in this encounter Visit Diagnoses Diagnosis Right foot pain Pain in limb documented in this encounter Care Teams Materials Tech Relationship Specialty Start Date End Date Jarret Martinez MD [address] [place] [phone] PCP - General FAMILY PRACTICE 12/27/17 Robbin Urban MD [address] [place] [id number] [place] [employer] Technician CARDIOVASCULAR DISEASE 04/24/19 documented as of this encounter
--- OUTSIDE RECORDS SUMMARY | 2024-03-20 22:46 | XMS_ITS | Encounter Summary ---
Author Organization [facility] Address [address] [place] [address]. [place] [address] [place] [address] Care Team Providers Care Marine Rigger Name Role Phone Jarret Kwong MD Primary Care Provider [phone] Robbin Urban MD Unavailable [phone] Encounter Details Date Type Department Care Team (Latest Contact Info) Description 03/24/2022 10:26 AM EDUCATIONAL PARAPROFESSIONAL - 03/24/2022 11:59 PM [facility] Hospital Encounter [facility] [address] [facility] [place] [address] Abdirashid Herrera DPM [address] [place] [address] Discharge Disposition: Home or Self Care (Routine [...] suspected to have Coronavirus/COVID-19? No / Unsure 03/24/2022 10:25 AM EDUCATIONAL PARAPROFESSIONAL documented as of this encounter Functional Status [...] Diagnosis Comments XR FOOT RT 3V Routine 03/24/2022 10:39 AM EDUCATIONAL PARAPROFESSIONAL Bunion of right foot Metatarsus adductus of right foot documented in this encounter Results * XR FOOT RT 3V (03/24/2022 10:39 AM EDUCATIONAL PARAPROFESSIONAL) Anatomical Region Laterality Modality Foot Radiographic Ricarda ging 03/24/2022 10:5 0 AM EDUCATIONAL PARAPROFESSIONAL Impressions 03/24/2022 11:14 AM EDUCATIONAL PARAPROFESSIONAL IMPRESSION: Soft tissue swelling medial to the head of the first metatarsal and the first metatarsophalangeal joint. No acute bony abnormality.. Ordered By: ABDIRASHID HERRERA Interpreted By: Rakesh Newby MD, 03/24/2022 10:50 AM Narrative 03/24/2022 11:14 AM EDUCATIONAL PARAPROFESSIONAL 03/24/2022, 10:34 AM. HISTORY: Bunion. EXAM: Weightbearing AP, lateral and oblique views of the right foot. Correlation to study 12/25/2021. FINDINGS: Soft tissue swelling medial to the head of the first metatarsal and first metatarsophalangeal joint, similar to the prior study. No definite bony erosion nor definitive bony change of bunion. No fracture or acute bony abnormality. No gross bone destruction. Minimal arthritis at the talonavicular articulation and at the first metatarsophalangeal joint. No remarkable calcaneal spurs. No abnormal soft tissue calcification. Procedure Note Rakesh Newby MD - 03/24/2022 03/24/2022, 10:34 AM. HISTORY: Bunion. EXAM: Weightbearing AP, lateral and oblique views of the right foot.Correlation to study 12/25/2021. FINDINGS: Soft tissue swelling medial to the head of the first metatarsaland first metatarsophalangeal joint, similar to the prior study. Nodefinite bony erosion nor definitive bony change of bunion. No fracture oracute bony abnormality. No gross bone destruction. Minimal arthritis atthe talonavicular articulation and at the first metatarsophalangeal joint.No remarkable calcaneal spurs. No abnormal soft tissue calcification. IMPRESSION: Soft tissue swelling medial to the head of the first metatarsal and thefirst metatarsophalangeal joint. No acute bony abnormality.. Ordered By: ABDIRASHID HERRERA Interpreted By: Rakesh Newby MD, 03/24/2022 10:50 AM us Abdirashid Herrera DPM GENERAL IMAGING Final Result documented in this encounter Visit Diagnoses Diagnosis Bunion of right foot Bunion Metatarsus adductus of right foot documented in this encounter Care Teams Marine Rigger Relationship Specialty Start Date End Date Jarret Kwong MD [address] [place] [phone] PCP - General FAMILY PRACTICE 12/27/17 Robbin Urban MD [address] [place] [address] [place] Reference Librarian CARDIOVASCULAR DISEASE 04/24/19 documented as of this encounter
--- OUTSIDE RECORDS SUMMARY | 2024-03-20 22:46 | XMS_ITS | Encounter Summary ---
Author Organization [facility] Address [address] [place] [address]. [place] [address] [place] [address] Care Team Providers Care Utility Hand Name Role Phone Jarret Kwong MD Primary Care Provider Robbin Urban MD Unavailable [phone] Encounter Details Date Type Department Care Team (Late st Contact Info) Description 05/22/2019 Hospital Orders Only [facility] [address] [facility] [place] [id number] Lilia Edmondson, RN Social History Tobacco Use Types Packs/Day Years [...] Diagnoses Not on filedocumented in this encounter Additional Health Concerns Infection Onset Date Last Indicated Resolved Time COVID-19 Rule Out 10/13/2022 10/13/2022 10/13/2022 12:01 PM CDT documented as of this encounter Care Teams Utility Hand Relationship Specialty Start Date End Date Jarret Kwong MD [address] [place] [phone] PCP - General FAMILY PRACTICE 12/27/17 Robbin Urban MD [address] [place] [id number] [employer] CARDIOVASCULAR DISEASE 04/24/19 documented as of this encounter
--- OUTSIDE RECORDS SUMMARY | 2024-03-20 22:46 | XMS_ITS | Encounter Summary ---
Author Organization [facility] Address [address] [place] [address]. [place], [place] [id number] [place] [phone] Care Team Providers Care Mess Attendant Crew Name Role Phone Jarret Kwong MD Primary Care Provider Robbin Urban MD Unavailable [phone] Reason for Visit * Imaging (Routine) - Closed Specialty Diagnoses / Procedures Referred By Sam villalba Referred To Contact RADIOLOGY Diagnoses Visit for screening mammogram Procedures MG SCREENING W ANGELY PAYAL Jarret Dacosta MD [address] [place] [phone] Phone: tel: fax: Referral ID Status Reason Start Date Expiration Date Visits Re quested Visits Authorized [id number] Closed 09/01/2019 10/01/2020 1 1 Encounter Details Date Type Department Care Team (Latest Contact Info) Description 08/12/2020 9:18 AM CDT Hospital Encounter [facility] [address] [facility] [place] [address] Jarret Kwong MD [address] [place] [phone] Discharge Disposition: Home or Self Care [...] AM CDT Atiya Haas RN Active documented as of this encounter Mental Status * Because of a physical, mental, or emotional condition, do you have serious difficulty concentrating, remembering, or making decisions? Answer Entry Date Author Status No 10/12/2018 1:00 AM CDT [...] MG SCREENING W ANGELY PAYAL DIGI Routine 08/12/2020 10:12 AM CDT Visit for screening mammogram documented in this encounter Results * MG SCREENING W ANGELY PAYAL DIGI (08/12/2020 10:12 AM CDT) Anatomical Region Laterality Modality Breast Bilateral Mammography 08/14/2020 8:46 AM CDT Impressions 08/14/2020 8:47 AM CDT IMPRESSION: No suspicious change since the previous exams. Recommendation: 1: Routine screening mammogram ??Bilateral ?? in 1 Year Assessment: ACR BI-RADS Category 2 - Benign. Referred By: JARRET KWONG Interpreted By: Hugo Snow MD, 08/14/2020 8:46 AM Narrative 08/14/2020 8:47 AM CDT Examination: Digital screening mammogram with CAD. Clinical history: Asymptomatic patient presents for routine screening. History of right breast trauma. Comparison: 05/26/2019, 07/21/2018, 10/28/2017. Technique: Bilateral digital mammograms. The exam was interpreted with the use of a computer-aided detection (CAD) system. ??Additional 3-D tomosynthesis images were acquired. Tissue density: The breast tissue is heterogeneously dense. Findings: The breast tissue is heterogeneously dense. The dense tissue may obscure some lesions mammographically. ?? Posttraumatic changes near the 12:00 position on the right have undergone typical evolution. Benign-appearing calcification noted. No suspicious mass, microcalcification or area of architectural distortion can be identified. From a mammographic standpoint, routine followup in one year would seem adequate. us Jarret Kwong MD MAMMO Final Resul t documented in this encounter Visit Diagnoses Not on filedocumented in this encounter Care Teams Mess Attendant Crew Relationship Specialty Start Date End Date Jarret Kwong MD [address] [place] [phone] PCP - General FAMILY PRACTICE 12/27/17 Robbin Urban MD [address] [place] [address] [employer] Rn Pool CARDIOVASCULAR DISEASE 04/24/19 documented as of this encounter
--- OUTSIDE RECORDS SUMMARY | 2024-03-20 22:46 | XMS_ITS | Encounter Summary ---
Author Organization [facility] Address [address] [place] [address]. [place] [address] [place] [address] Care Team Providers Care Special Education Classroom Aide Name Role Phone Jarret Kwong MD Primary Care Provider Robbin Urban MD Unavailable [phone] Encounter Details Date Type Department Care Team (Latest Contact Info) Description 08/12/2020 Travel Social History Tobacco Use Types Packs/Day [...] on filedocumented in this encounter Care Teams Special Education Classroom Aide Relationship Specialty Start Date End Date Jarret Kwong MD [address] [place] [phone] PCP - General FAMILY PRACTICE 12/27/17 Robbin Urban MD [address] [place] [phone] [place] Conveyor System Operator CARDIOVASCULAR DISEASE 04/24/19 documented as of this encounter
--- OUTSIDE RECORDS SUMMARY | 2024-03-20 22:46 | XMS_ITS | Encounter Summary ---
Author Organization [facility] Address [address] [place] [address]. [place], [place] [id number] [place] [id number] Care Team Providers Care Quantity Surveyor Name Role Phone Jarret Martinez MD Primary Care Provider Go Richards MD Unavailable Unavailable Reason for Referral * (Routine) - Canceled Specialty Diagnoses / Procedures Referred By Contac t Referred To Contact Procedures OT Eval and Treat [facility] Intermediate [facility] [address] [place] [address] Phone: tel: Referral ID Status Reason Start Date Expiration Date V isits Requested Visits Authorized [id number] Canceled 10/12/2018 11/13/2019 1 1 * (Routine) - Closed Specialty Diagnoses / Procedures Referred By Contac t Referred To Contact Procedures SEARCH CONSULTANT eval and Lourdes Stevenson MD Phone: tel: fax: Referral ID Status Reason Start Date Expiration Date Visits Re quested Visits Authorized [id number] Closed 10/12/2018 11/13/2019 1 1 * Imaging (Urgent) - Closed Specialty Diagnoses / Procedures Referred By Contac t Referred To Contact RADIOLOGY Procedures CT SOFT TISSUE NECK W CON CTA NECK Samm Graham MD [address] [facility] [id number] [place] [address] Phone: tel: fax: Referral ID Status Reason Start Date Expiration Date Visits Re quested Visits Authorized [id number] Closed 10/11/2018 11/12/2019 1 1 * Imaging (Urgent) - Closed Specialty Diagnoses / Procedures Referred By Contac t Referred To Contact RADIOLOGY Procedures CTA CHEST CT CHEST WWO CON Samm Graham MD [address] [address] Phone: tel: fax: Referral ID Status Reason Start Date Expiration Date Visits Re quested Visits Authorized [id number] Closed 10/11/2018 11/12/2019 1 1 * (Routine) - Canceled Specialty Diagnoses / Procedures Referred By Contac t Referred To Contact Procedures PT Eval and Treat Lloyd Hernandez MD Phone: tel: fax: Referral ID Status Reason Start Date Expiration Date V isits Requested Visits Authorized [id number] Canceled 10/11/2018 11/12/2019 1 1 * Surgical (Routine) - Closed Specialty Diagnoses / Procedures Referred By Contac t Referred To Contact Procedures Case request operating room: EGD WITH CONTROL BLEEDING Samm Graham MD [address] [facility] [place] [address] Phone: tel: fax: Referral ID Status Reason Start Date Expiration Date Visits Re quested Visits Authorized [id number] Closed 10/11/2018 11/12/2019 1 1 Reason for Visit * Auth/Cert Specialty Diagnoses / Procedures Referred By Contac t Referred To Contact Diagnoses HEMORRHAGIC SHOCK ANEMIA Hemorrhagic shock (CMS/HCC) Hemorrhagic shock (CMS/HCC) Procedures GENERAL Referral ID Status Reason Start Date Expiration Date Visits Re quested Visits Authorized [id number] 1 1 Encounter Details Date Type Department Care Team (Late st Contact Info) Description 10/10/2018 10:56 PM CDT - 10/15/2018 12:55 PM CDT Hospital Encounter [place] [address] [place] [address] Festus Banks DO Saeed, Faisal, MD [address] [facility] [place] [address] [place] [id number] Lourdes Foster MD [address] Floor Clinic [place], [place] [address] Discharge Disposition: Swing Bed Social History Tobacco [...] Sign Reading Time Taken Comments Blood Pressure 145/53 10/15/2018 4:48 AM CDT Pulse 95 10/15/2018 4:48 AM CDT Temperature 36.8 ??C (98.2 ??F) 10/15/2018 4:48 AM CD T Respiratory Rate 18 10/14/2018 12:4 6 PM CDT Oxygen Saturation 96% 10/15/2018 4:48 AM CDT Inhaled Oxygen Concentration - - Weight 64.7 kg (142 lb 10.2 oz) 10/15/2018 4:48 AM CDT Height 157.5 cm (5' 2 ) 10/14/2018 12:4 6 PM CDT Body Mass Index 26.09 10/14/2018 12:46 PM CDT documented in this encounter Functional Status * Question Answer Date of Assessment Author Status Do you have serious difficulty walking or climbing stairs? No 10/12/2018 1:00 AM Atiya Ramirez RN Act lala * Question Answer Date of Assessment Author Status Do you have difficulty dressing or bathing? No 10/12/2018 1:00 AM Atiya Ramirez RN Active Because of a physical, mental, or emotional condition, do you have difficulty doing errands alone such as visiting a doctor's office or shopping? No 10/12/2018 1:00 AM Atiya Ramirez RN Acti ve * RETIRED Are you deaf or do you have serious difficulty hearing Answer Date of Assessment Author Status No 10/12/2018 1:00 AM SAADIAT Activ e * RETIRED Are you blind or do you have serious difficulty seeing, even when wearing glasses? Answer Date of Assessment Author Status No 10/12/2018 1:00 AM SAADIAT Activ e * Do you have serious [...] or making decisions? No 10/12/2018 1:00 AM Atiya Ramirez RN Active * Because of a physical, mental, or emotional condition, do you have serious difficulty concentrating, remembering, or making decisions? Answer Entry Date Author Status No 10/12/2018 1:00 AM Atiya Ramirez RN Active documented in this encounter Discharge Summaries * Lourdes Foster MD - 10/15/2018 11:33 AM CDT Physician Discharge Summary Patient ID: Juana Klein [id number] 78-year-old 1940 Primary care physician:JARRET MARTINEZ MD Admit date: 10/10/2018 Discharge Date: 10/15/2018 Admitting Physician: Lourdes Foster MD Discharging physician: LOURDES FOSTER MD Consults: cardiology, pulmonary/intensive care, GI and ENT Discharge Diagnoses: Patient Active Problem List Diagnosis ??? Atrial fibrillation (CMS/HCC) ??? HTN (hypertension) ??? Mitral regurgitation ??? Hemorrhagic shock (CMS/HCC) GI bleed Pneumonia Discharged Condition: stable Hospital Course: 78-year-old lady with know past medical history pertinent of chronic anemia and PUD in remote past presents to the outside ED [facility] with chief compliant of feeling weak. Patient was found to have hemoglobin around 4.3. Patient was transfused. She was admitted in ICU. She reported black stools at admission. Patient had EGD which showed reflux esophagitis and history gastritis. There was some blood seen in the vocal cord. Patient was doing well after transfusion. Her hemoglobin remained stable. She was continued on PPI and Carafate. Pulmonary and ENT services were consulted. Pulmonology recommended that they abnormality seen in the chest CT chest versus pneumonia no evidence of pulmonary hemorrhage. ENT scoped her and recommended there is no signs of bleeding in the upper airway. Patient did well during hospital stay. Cardiology was on board. Recommended to hold off on anticoagulation. Patient was very anxious and wanted to resume anticoagulation as soon as possible because she was concerned about stroke. After long discussion patient was started on low-dose aspirin. She understand the risk and benefits of anti-cognition. She understands risk of bleeding is remains at this point has a hemoglobin is in the range of 4 when she was admitted. Cardiology has recommended risk of life-threatening bleeding overweight use of anticoagulation at this point. Patient was discharged on Augmentin for right-sided pneumonia. Patient had chronic diastolic heart failure which was compensated. Patient was euvolemic. Patient had a history of severe mitral regurgitation and atrial septal defect with PFO for which she is following up with Dr. Richards and cardiology. Patient's other medical issues including CAD, anxiety, migraine remained stable during hospital stay. She has history of atrial fibrillation but rhythm was sinus. She is on amiodarone and metoprolol. No anticoagulation exceptfor aspirin started at discharge. For anemia she is on iron therapy. Patient is on gabapentin for neuropathy. Patient has generalized weakness for which she was seen by PT and OT they recommended longterm therapy at rehab which was arranged. Patient's PCP notified to Reid Casillas. Patient discharged in stable condition with stable vital signs after clearance from all the consulting service. Code Status: Full Code Procedure EGD WITH BIOPSY Procedure Note ?? Juana Klein 10/10/2018 - 10/11/2018 ? Surgeon(s): Samm Graham MD ?? Alligator Shear Operator: GI Nurse: Cher Davis RN ?? Pre-Op Diagnosis: Anemia with a H/O ulcers ?? Post-Op Diagnosis: 1. Unexplained blood at the vocal cords 2. Reflux esophagitis 3. Streaky gastritis 4. No ulcers seen 5. Bilroth I anatomy with antrectomy 6. Duodenum seen with papilla 7. No blood in GI tract. ?? Procedure(s): EGD WITH BIOPSY ? Medications Versed - 5 mg Fentanyl 75 mcg ?? Consent : The indications, risks, possible complications, and alternatives of esophagogastroduodenoscopy and possible push enteroscopy, with possible biopsies, polypectomy, cautery, clipping, injection therapy, rubber band ligation, as well as possible esophageal dilation were explained to the patient. The risks include but are not limited to: bleeding, perforation, infection, drug reaction, phlebitis, pneumonia, missed lesions, delayed bleeding, and the remote risk of catastrophic events, cardiovascular/pulmonary collapse, stroke and were explained to the patient. The patient states that they understand and agree to proceed. ? Procedure Description: After informed consent was obtained, the patient was brought to the endoscopy unit. The patient was placed on oximetry and cardiac monitors, as well as supplemental oxygen. A time out was performed to confirm the correct patient and procedure, as well as allergies and risk factors. The patient was then slowly and adequately sedated. With a bite block in place, the upper endoscope was lubricated with endoscopy lubricant, and sprayed with benzocaine. Under direct visualization the upper endoscope was advanced into the esophagus. There was blood noted at the vocal cords but none in the esophagus. The esophagus was visualized in its entirely. The gastroesophageal junctionwas mildly erythematous . The squamocolumnar junction had an irregular Z line. The scope was then advanced in to the stomach. The stomach was examined in its entirety, including the cardia, fundus, with post surgical changes seen and antrectomy. The gastric mucosa had a streaky erythematous appearance.The anastomosis was easily intubated. The distal duodenum and ampulla had a normal appearance. The scope was brought back into the stomach and retroflexion was performed. Biopsies taken of Duodenum, Stomach, and GE Jxn and distal esophagus. The stomach was decompressed on removal of the scope. The scope was completely withdrawn. The patient tolerated the procedure very well. ?? Complications: None ?? Estimated Blood Loss: Minimal ?? Specimens: ID Type Source Tests Collected by Time Destination A : duodenal bxs TISSUE GASTRIC BIOPSY PATHOLOGY Samm Graham MD 10/11/2018 1214 ?? B : gastric bx's TISSUE GASTRIC BIOPSY PATHOLOGY Samm Graham MD 10/11/2018 1214 ?? C : distal esophagus bx,s TISSUE GASTRIC BIOPSY PATHOLOGY Samm Graham MD 10/11/2018 1215 ? Finding/Impression: Bilroth I anatomy with no signs of bleeding except at the vocal cords. ?? Plan/Recommendations Check Bx CT scan of chest and neck She had a colonoscopy in 2016 so doubt that would be helpful unless there is overt bleeding. ?? SAMM GRAHAM MD ?? Date: 10/11/2018 Time: 12:17 PM Imaging: Ct Soft Tissue Neck W Con Result Date: 10/11/2018 INDICATION: Hemoptysis. Blood seen on vocal cords. EXAMINATION: CT examination of the neck was performed after administration of 80 mL intravenous contrast without adverse event with axial and multiplanar reformatted images obtained. A dose lowering technique was used for this procedure, which may include, but is not limited to, dose reduction technique, automated exposure control, the use of iterative reconstruction, and ALARA (As Low As Reasonably Achievable) / Image Gently techniques. COMPARISON: None FINDINGS: Streak artifact from dental amalgam partially obscures assessment. Benign-appearing bony excrescence off of the inferior right mandibular body. Suggestion of mild mucosal edema along the oropharynx, hypopharynx, and supraglottic larynx. No obvious laryngeal mass lesion. Nonspecific asymmetric sclerosis of the left arytenoid cartilage. No destructive changes seen along the laryngeal cartilages. Paraglottic and preepiglottic fat appears unremarkable. Otherwise the remainder ofthe oral cavity, nasopharynx, oropharynx, and hypopharynx appear unremarkable. No suspicious appearing or enlarged lymph nodes by size criteria seen in the neck. Atherosclerotic vascular calcifications and carotid tortuosity. Major salivary glands and thyroid gland unremarkable. No soft tissue collections. Imaged portions of the intracranial compartment reveal small vessel disease, volume loss, and intracranial atherosclerotic calcifications. Prior lens replacements. Mastoid air cells and paranasal sinuses clear. Partly imaged portions of the upper chest reveal bilateral pleural effusions, dependent atelectasis, and patchy ground glass opacities. Atherosclerotic calcification of aorta and me diastinal great vessels. Please refer to separately reported CT of the chest for description of intrathoracic findings. Degenerative changes in the spine. IMPRESSION: 1. Suggestion of mild mucosal edema along the oropharynx, hypopharynx, and supraglotticlarynx. No obvious laryngeal mass. Could correlate with direct visualization. 2. No suspicious appearing or enlarged lymph nodes by size criteria seen in the neck. 3. No soft tissue collections. 4. Bilateral pleural effusions and partially visualized groundglass opacities. Please refer to separately reported CTA of the chest for additional description of pulmonary findings. Interpreted By: Ollie Roper MD, 10/11/2018 4:20 PM Cta Chest Result Date: 10/11/2018 Examination: CTA chest. Clinical Information: Hemoptysis. Comparison: CT 12/16/2016. Technique: IV contrast: 80 mL Isovue 370. Oral contrast: None. Technical comments: CTA of the chest was performed according to the pulmonary embolism protocol. Coronal MIP images were submitted for evaluation. Dose r eduction: This CT exam was performed using one or more of the following dose reduction techniques: Automated exposure control, adjustment of the mA and/or kV according to patient size, and/or use of iterative reconstruction technique. Findings: PULMONARY VASCULATURE The pulmonary arteries are well-opacified and no intraluminal filling defect is identified. The pulmonary arteries are dilated, withthe main pulmonary artery measuring 3.5 cm in diameter. The right pulmonary artery measures approximately 3.3 cm in diameter. The left pulmonary artery measures 2.7 cm in diameter. MEDIASTINUM Support tubes and lines: None. Base of neck/thyroid: Negative. Heart: Mild to moderate cardiomegaly. No signs of right- sided heart strain. No pericardial effusion. The thoracic aorta is normal in caliber. Lymph nodes: No supraclavicular, axillary, internal mammary, mediastinal, or hilar adenopathy. LUNGS AND PLEURA Trace bilateral pleural effusions with atelectasis. Diffuse groundglass opacities are seen within the right upper lobe, which may represent an infectious or inflammatory process or given the history of hemoptysis, hemorrhage. No definite bronchial mucous plugging is seen. UPPER ABDOMEN Unremarkable. BONES/SOFT TISSUES Mild multilevel spondylosis. Impression: 1. No pulmonary embolism identified. 2. The pulmonary arteries are diffusely dilated, compatible with underlying pulmonary arterial hypertension. 3. Right basilar opacities are seen within the right upper lobe, potentially representing an infectious or inflammatory process. Given the history of hemoptysis, findings may represent pulmonary hemorrhage. 4. Trace bilateral pleural effusions with atelectasis. 5. Mild to moderate cardiomegaly. Interpreted By: Shaji Holbrook MD, 10/11/2018 4:39 PM Xr Chest Portable Result Date: 10/10/2018 Date: 10/10/2018 5:11 PM Exam: XR CHEST PORTABLE Comparison: Chest radiography dated 01/01/2017. Technique: Single view chest. History: Weakness and shortness of breath. Fatigue. Findings: Since the cardiac silhouette is somewhat enlarged. There is vascular congestion. There are no dense consolidations nor pleural effusions. There are mild and vague opacities in the infrahilar locations possibly atelectasis and/or infiltrates. There is no pneumothorax. There is central bronchial wall thickening. This could indicate bronchitis, peribronchial cuffing or possibly reactive airway disease. The osseous structures are intact. Impression: 1. Cardiomegaly and vascular congestion. 2. Bronchial wall thickening could indicate bronchitis, reactive airway disease and/or peribronchial cuffing. 3. Mild atelectasis or infiltrates in the infrahilar regions. InterpretedBy: Adryan Atwood, 10/10/2018 5:14 PM Disposition: [facility] Patient Instructions: Current Discharge Medication List START taking these medications Details amoxicillin-clavulanate (AUGMENTIN) 875-125 MG tablet Take 1 tablet (875 mg total) by mouth 2 (two)times daily for 3 days. Qty: 6 tablet, Refills: 0 aspirin 81 MG chewable tablet Chew 1 tablet (81 mg total) by mouth daily for 30 days. Qty: 30 tablet, Refills: 0 pantoprazole EC (PROTONIX) 40 MG tablet Take 1 tablet (40 mg total) by mouth 2 (two) times a day for 30 days. Qty: 30 tablet, Refills: 2 polyethylene glycol packet Take 1 packet (17 g total) by mouth daily for 30 days. Dissolve powder in 240 mL water Qty: 30 packet, Refills: 0 sucralfate 1 GM/10ML suspension Take 10 mLs (1 g total) by mouth every 6 (six) hours for 30 days. Qty: 1200 mL, Refills: 0 CONTINUE these medications which have CHANGED Details gabapentin 100 MG capsule Take 1 capsule (100 mg total) by mouth 3 (three) times daily. Qty: 20 capsule, Refills: 0 lorazepam (ATIVAN) 0.5 MG tablet Take 1 tablet (0.5 mg total) by mouth 2 (two) times daily. Qty: 10 tablet, Refills: 0 CONTINUE these medications which have NOT CHANGED Details calcium carb-cholecalciferol (CALTRATE 600+D) 600-800 MG-UNIT tablet Take by mouth daily. duloxetine (CYMBALTA) 60 MG capsule Take 60 mg by mouth daily. escitalopram 20 MG tablet Take 40 mg by mouth daily. ferrous sulfate, 65 mg elemental, 325 (65 FE) MG tablet Take by mouth 2 (two) times daily. metoprolol succinate 50 MG 24 hr tablet Take 0.5 tablets (25 mg total) by mouth daily. Qty: 30 tablet, Refills: 12 SUMAtriptan (IMITREX) 50 MG tablet Take 50 mg by mouth daily as needed for Migraine. amiodarone 200 MG tablet TAKE EVERY THIRD DAY STOP taking these medications dabigatran (PRADAXA) 150 MG Cap lansoprazole (PREVACID) 30 MG capsule meloxicam 15 MG tablet omeprazole 20 MG capsule potassium chloride 20 MEQ packet Activity: activity as tolerated Diet: cardiac diet Wound Care: as directed Follow-up with JARRET MARTINEZ MD in 3-7 days CBC and CMP in 3-7 days. Follow-up with PCP to arrange for that. Fall precautions Monitor blood pressure twice daily No driving while on narcotics or sedating meds Do not operate heavy machinery while on narcotics or sedating meds PT and OT to eval and treat Call 911 or go to ED if you have black stools or blood in stools or any other signs of bleeding. [facility] [address], [address] [facility] [address] Follow up in 2 week(s) Jarret Martinez MD [address] [facility] [address] Follow up in 3 day(s) Nina Bal MD [address] [facility] [address] [facility] [address] Follow up in 1 month(s) Martina Cerna MD [address] [facility] [address] Follow up in 1 month(s) or as needed Go Richards MD [address] [facility] [address] [place] [id number] Follow up in 2 week(s) Discharge time spent: 33 minutes Signed: LOURDES FOSTER MD 10/15/2018 11:51 AM documented in this encounter Discharge Instructions * Discharge Instructions* Lourdes Foster MD - 10/15/2018 11:50 AM CDT Activity: activity as tolerated Diet: cardiac diet Wound Care: as directed Follow-up with JARRET MARTINEZ MD in 3-7 days CBC and CMP in 3-7 days. Follow-up with PCP to arrange for that. Fall precautions Monitor blood pressure twice daily No driving while on narcotics or sedating meds Do not operate heavy machinery while on narcotics or sedating meds PT and OT to eval and treat Call 911 or go to ED if you have black stools or blood in stools or any other signs of bleeding. [facility] [address] [place], [address] [facility] [address] Follow up in 2 week(s) Jarret Martinez MD [address] [facility] [address] Follow up in 3 day(s) Nina Bal MD [address] [facility] [address] Follow up in 1 month(s) Martina Cerna MD [address] [facility] [address] Follow up in 1 month(s) or as needed Go Richards MD [address] [facility] [address] [facility] [id number] Follow up in 2 week(s) * Attachments The following attachments cannot be sent through Care Everywhere. * Bloody Stools Discharge Instructions, Adult (Macedonian) documented in this encounter Medications at Time of Discharge amiodarone 200 MG tablet TAKE EVERY THIRD DAY ferrous sulfate, 65 mg elemental, 325 (65 FE) MG tablet Take by mouth 2 (two) times daily. 11/29/2017 gabapentin 100 MG capsule Take 1 capsule (100 mg total) by mouth 3 (three) times daily. 20 capsule 10/15/2018 lorazepam (ATIVAN) 0.5 MG tablet Take 1 tablet (0.5 mg total) by mouth 2 (two) times daily. 10 tablet 10/15/2018 metoprolol succinate 50 MG 24 hr tablet Take 0.5 tablets (25 mg total) by mouth daily. 30 tablet 12 01/21/2018 SUMAtriptan (IMITREX) 50 MG tablet Take 1 tablet (50 mg total) by mouth daily as needed for Migraine. 12/09/2017 amoxicillin-clav ulanate (AUGMENTIN) 875-125 MG tablet Take 1 tablet (875 mg total) by mouth 2 (two) times daily for 3 days. 6 tablet 10/15/2018 10/18/2018 aspirin 81 MG chewable tablet Chew 1 tablet (81 mg total) by mouth daily for 30 days. 30 tablet 10/16/2018 11/15/2018 calcium carb-cholecalcif heidi (CALTRATE 600+D) 600-20 MG-MCG tablet Take by mouth daily. 02/06/2024 DULoxetine (CYMBALTA) 60 MG capsule Take 1 capsule (60 mg total) by mouth daily. 02/06/2024 escitalopram 20 MG tablet Take 2 tablets (40 mg total) by mouth daily. 02/06/2024 pantoprazole EC (PROTONIX) 40 MG tablet Take 1 tablet (40 mg total) by mouth 2 (two) times a day for 30 days. 30 tablet 2 10/15/2018 11/14/2018 polyethylene glycol packet Take 1 packet (17 g total) by mouth daily for 30 days. Dissolve powder in 240 mL water 30 packet 10/16/2018 11/02/2018 sucralfate 1 GM/10ML suspension Take 10 mLs (1 g total) by mouth every 6 (six) hours for 30 days. 1200 mL 10/15/2018 11/14/2018 documented as of this encounter Progress Notes * Carri Griffiths - 10/15/2018 10:45 AM CDT Doc to Doc has been completed and [facility] can accept today. Please fax d/c orders to #[phone]. Nurse to Nurse #[phone] ext [phone]. Pt's daughter will transport. Pt needs to be [facility] Bed by 2:00pm at the latest for them to accept today. RN is aware. * Carri Griffiths - 10/15/2018 9:26 AM CDT Hospitalist states Pt could possibly be ready to d/c today to [facility]. Marketing Lead spoke with Radha at the [facility]. They are requesting updated notes to be faxed (done) and a doc to doc to be called to Juanita Barboza at #[phone] ext [phone] prior to accepting Pt. Dr. Foster is aware. * Lourdes Foster MD - 10/14/2018 3:53 PM CDT PROGRESS NOTE Chief complaint: GIB SUBJECTIVE Patient seen and examined. Seems to be doing okay. No headache no nausea vomiting no abdominal constipation no diarrhea no dizziness. Patient is very concerned that she will be off anticoagulation. Understand the risk of bleeding. OBJECTIVE Patient Vitals for the past 24 hrs: BP Temp Temp src Pulse Resp SpO2 Weight 10/12/18 1136 115/50 97.7 ??F (36.5 ??C) -- 76 -- 98 % -- 10/12/18 0756 127/57 98.2 ??F (36.8 ??C) Oral 83 -- 92 % -- 10/12/18 0405 126/65 98.1 ??F (36.7 ??C) Oral 79 18 93 % 68.4 kg (150 lb 12.7 oz) 10/11/18 2335 114/63 98.5 ??F (36.9 ??C) Oral 79 24 95 % -- 10/11/18 2331 114/63 98.4 ??F (36.9 ??C) -- 77 -- 95 % -- 10/11/18 2100 144/63 98.7 ??F (37.1 ??C) Tympanic 84 28 91 % 66.1 kg (145 lb 11.6 oz) 10/11/18 2039 146/66 -- -- 85 23 92 % -- 10/11/181999 -- 99 ??F (37.2 ??C) Tympanic 81 20 94 % -- 10/11/18 1645 137/61 99.5 ??F (37.5 ??C) Tympanic 80 21 95 % -- 10/11/18 1530 125/52 -- -- 77 22 94 % -- 10/11/18 1515 124/82 -- -- 76 24 92 % -- 10/11/18 1500 135/58 -- -- 74 27 93 % -- 10/11/18 1445 136/66 -- -- 75 30 91 % -- 10/11/18 1430 120/53 -- -- 74 21 98 % -- 10/11/18 1415 130/48 -- -- 74 25 100 % -- 10/11/18 1400 103/71 -- -- 70 21 97 % -- 10/11/18 1345 116/60 -- -- 70 16 99 % -- 10/11/18 1330 119/46 -- -- 72 20 99 % -- 10/11/18 1315 118/54 -- -- 71 24 99 % -- 10/11/18 1300 127/59 -- -- 68 27 97 % -- 10/11/18 1245 117/51 -- -- 65 24 98 % -- 10/11/18 1230 111/50 -- -- 65 25 97 % -- ROS ROS Review of Systems: General: No fatigue Skin: Denies: Itching Eyes: Denies: Blurred Vision Ears: Denies: Discharge Nose/ Sinuses: Denies: Congestion Neck: Denies: Enlarged Lymph Nodes Respiratory: Denies: Cough Cardiac: Denies: Chest Pain Gastrointestinal: Denies: Abdominal Distension, Abdominal Pain Urinary: Denies: Flank Pain Musculoskeletal: Denies: Back Pain Neurologic: : Oriented [id number]: Confusion Hematologic/Lymphatic: Denies: Easy Bleeding PHYSICAL EXAMINATION: Physical Exam General Appearance: : Well Developed Skin: : Normal Color Head: : Normocephalic Eyes: : Conjunctiva Clear ENT: : Oropharynx Normal Neck: : Non-Tender Chest and Respiratory: : Breath Sounds Equal: Lungs Clear-Auscultation Heart: : No Murmur: Regular Rate/Rythm Abdominal: No Organomegaly Non-Tender Normal Bowel Sounds Soft Vascular: : Normal Capillary Refill Musculoskeletal: : gen weakness Neurologic: : Alert and Oriented X3: CN 2-12 Intact: No Gross Motor Deficits Mental Status: : Normal Affect Back: : Non Tender Peripheral Pulses: Present Dorsalis Pedis - L, Present Dorsalis Pedis - R LABS: Recent Labs 10/10/18 1718 10/10/18 2310 10/11/18 0600 10/11/18 1530 10/11/18 2344 10/12/18 0956 WBC 6.3 6.3 7.2 -- -- -- -- HGB 4.3* 5.4* 9.1* < > 9.3* 8.8* 10.1* HCT 14.0* 18.0* 27.7* < > 28.6* 27.3* 31.2* MCV 92.7 93.8 89.1 -- -- -- -- PLT 245 245 218 -- -- -- -- RBC 1.51* 1.92* 3.11* -- -- -- -- < > = values in this interval not displayed. Recent Labs Lab 10/10/18 1718 10/10/18 2310 10/11/18 0600 10/12/18 0957 NA 130* 136 135* 135* K 4.1 4.0 4.6 3.9 CL 98 106 107 104 CO2 26.6 24.9 23.1 25.5 AGAP 5.4 5.1 4.9* 5.5 BUN 24 18 16 7 CR 0.89 0.72 0.75 0.70 GFRNON 63* 81* 77* 84* GFR 72* >90 89* >90 GLU 98 91 -- -- CA 7.6* 7.7* 7.7* 7.9* TP 5.0* 4.9* -- -- ALB 2.6* 2.8* -- -- TBIL 0.2 0.3 -- -- ALKP 34* 34* -- -- AST 8* 7* -- -- ALT 13* 10* -- -- Intake/Output Summary (Last 24 hours) at 10/12/2018 1225 Last data filed at 10/12/2018 1159 Gross per 24 hour Intake 200 ml Output 1600 ml Net -1400 ml RADIOLOGY : REVIEWED MEDICATIONS Scheduled medications ??? amiodarone 200 mg Oral Q3 Days ??? citalopram 40 mg Oral Daily ??? duloxetine 60 mg Oral Daily ??? ferrous sulfate (65 mg elemental) 325 mg Oral TID WC ??? gabapentin 100 mg Oral TID ??? lorazepam 0.5 mg Oral BID ??? pantoprazole 40 mg Intravenous BID ??? piperacillin-tazobactam 3.375 g Intravenous Q8H ??? sucralfate 1 g Oral 4 times per day Infusion PRN Microbiology Results (last 14 days) Procedure Component Value Units Date/Time CULTURE, BACTERIA, BLOOD [[id number]] Collected: 10/10/18 2310 Order Status: Completed Lab Status: Preliminary result Updated: 10/11/18 6490 Specimen: BLOOD Spec. Description BLOOD Special Requests: NO SPECIAL REQUEST Culture Result: NO GROWTH 1 DAY MRSA SCREENING [[id number]] Collected: 10/10/18 2304 Order Status: Completed Lab Status: Final result Updated: 10/11/18 1135 Specimen: NASAL SPECIMEN SOURCE RESPIRATORY, NOSE MRSA BY PCR METHICILLIN RESISTANT STAPH AUREUS NOT DETECTED OCCULT BLOOD, FECES [[id number]] Order Status: Canceled Lab Status: No result Specimen: STOOL CULTURE URINE [[id number]] Collected: 10/10/18 1805 Order Status: Completed Lab Status: Final result Updated: 10/11/18 2130 Specimen: URINE, CLEAN CATCH Spec. Description URINE CLEAN CATCH Special Requests: NO SPECIAL REQUEST Culture Result: NO GROWTH (< OR = 1,000 CFU/ML) CULTURE, BACTERIA, BLOOD [[id number]] Collected: 10/10/18 0600 Order Status: Completed Lab Status: Preliminary result Updated: 10/11/18 2347 Specimen: BLOOD Spec. Description BLOOD Special Requests: NO SPECIAL REQUEST Culture Result: NO GROWTH <24 HRS ASSESSMENT /PLAN Juana Klein is a 78-year-old female PROBLEM LIST: . Acute blood loss anemia secondary to GI bleed black stools/melena Status multiple units of PRBC transfusion. Status post EGD showing no evidence of active bleeding. Showed reflux esophagitis and streaky gastritis. Blood seen at the vocal cord CT chest done showed pneumonia. Less likely pulmonary hemorrhage. Some hyperemia of the upper airway. Will ask ENT to evalif needed. Clinically no distress. Continue PPI twice daily. Continue monitor hemoglobin levels. Continue Carafate Cardiology recs to stop pradaxa and recs watchman procedure Starting anticoagulation at this point is difficult considering patient had significant bleeding and hemoglobin is only 4. Risk of bleeding or weight at this point. Rather than full dose anticoagulation will start patient on aspirin for now. Discussed with cardiology as well. Right-sided pneumonia/bronchitis: Less likely pulmonary hemorrhage. Started antibiotics. Check sputum culture. Pulmonary notified. Upper airway edema seen on the CT, ENT to evaluate. Chronic grade 1 diastolic dysfunction with EF 70% [not in acute exacerbation] WALDO on 10/2018 EF 60-65% with severe Mitral regurgitation; atrial septal aneurysm with PFO with small LEFT to RIGHT shunt Cardiology following, Monitor Vol status and [place] CAD Generalized anxiety disorder Migraine headaches ?? Generalized weakness: PT OT evaluation. May need swing bed. DVT prophylaxis with SCDs only. ?? A. fib is rate controlled. Resume amiodarone and metoprolol. Etiology following. Hold pradexa for now. Aspirin only for now considering patient's high risk of bleeding. Anxiety: Resume Cymbalta and Lexapro Iron deficiency anemia: Resume iron replacement Neuropathy: Resume gabapentin ?? DVT Prophylaxis: SCD Code Status: Full Code Monitor H/H and await rehab placement. Likely discharge tomorrow. Discussed with cardiology service. LOURDES FOSTER MD 12:25 PM 10/12/2018 * Yris Salazar RN - 10/14/2018 11:16 AM CDT DISCHARGE PLAN: Roselia BANERJEE on Wednesday, family to provide transportation. * Jeanette Tucker OT - 10/14/2018 10:58 AM CDT OT Initial Evaluation Discharge Recommendation: Swing bed unit Activity Recommendation for manager plant: Up with CGA 2ww 10/14/18 1040 Therapy Visit OT Received On 10/14/18 Reason for admission Pt presents with worsening generalized weakness x2 days. Pt also complains ioflightheadedness with positional changes and was found to be orthostatic in the ED. 10/11 pt was admitted to ICU for management of HGB 4.3 receiving 3 units of PRBC's. EGD showed no evidence of active bleeding, but showed reflux esophagitis and streaky gastritis....PMH: mitral valve disorder, migraine, GERD, depression, CAD, a-fib, anxiety, TKA, appendectomy....Activity: up with assist....Orders: eval and treat. Ordering Provider Lourdes Foster MD Verified Two Patient Identifiers Yes Patient consents to therapy Yes Time Calculation Start Time 1040 Stop Time 1058 Time Calculation (min) 18 min Precautions General Precautions Fall Risk Instructed on Precautions Yes;Verbalizes understanding Other IV, telemetry Subjective Subjective RN ok'd therapy eval, pt requesting to use BR upon arrival Home Living Type of Home House Home Layout One level Home Accessibility 1 Step or platform to enter Bathroom Shower/Tub Walk-in shower Bathroom Toilet Elevated height toilet (ADA height);Sink/counter next to toilet Bathroom Equipment Grab bars in shower;Built-in shower seat Home Equipment Straight cane;2 Wheeled walker;4 Wheeled walker Additional Comments 2 steps down to living area Prior Function Level of [place] Independent with ADLs;Independent with functional transfers;Independent with ambulation;Independent with homemaking with ambulation Device used at baseline None;Straight cane Fall History No Lives With Alone Receives Help From Family Comments Daughter does grocery shopping and pt uses transport services for appointments. Pt states she uses cane outside of home, but inside of home does not uses any AD, but did use furniture as needed. Pain Pain No Pain Score (did not quantify ) Location neck Interventions Relaxation;Re-positioning;Re-direction Activity Tolerance Activity Tolerance Comments Limited by weakness and deconditioning. Rest breaks to prevent over exertion. No reports of lightheadedness/dizziness this session. Cognition Overall Cognitive Status WFL Arousal/Alertness Appropriate responses to stimuli Attention Span Appears intact Memory Appears intact Orientation Level Oriented X4 Following Commands Follows all commands and directions without difficulty Safety Judgment Decreased awareness of need for assistance Awareness of Errors Good awareness of errors made Deficits Decreased awareness of deficits Problem Solving Able to problem solve independently Motor Planning Appears intact Perseveration Not present Initiation Appears intact Overall Extremity Assessment Upper Extremity AROM WFL, gen weakness noted Hand Function Hand Dominance Right Sensation Light Touch No apparent deficits ADL Additional Comments Pt SBA seated toileting. Pt CGA hand hygiene, and oral hygiene standing at sinkwtih 2ww, min cues for safety Bed Mobility Rolling SBA/supervision Supine to Sit SBA/supervision Other (Comment) With HOB slightly elevated, pt completed supine <> sit EOB with extra time. Functional Transfers Sit to Stand SBA/supervision;Contact guard assist Bed to Chair SBA/supervision;Contact guard assist Other (Comment) Pt SBA-CGA 2ww GB min cues for safety Balance Sitting - Static SBA Sitting - Dynamic SBA Standing - Static SBA;CGA;Support of both upper extremities Standing - Dynamic SBA;CGA;Support of both upper extremities Other (Comment) No LOB noted with 2ww Assessment Occupational Profile and History Complexity Moderate (Expanded) Performance Skills Deficits Bathing/showering;Dressing;Functional mobility;Personal hygiene and grooming;Toileting Performance Deficit Level Moderate (3-5 deficits) Clinical Decision Making Moderate (min/mod modifications) Complexity Level of Evaluation Moderate Prognosis Good Recommendation OT Recommendation OT during Hospitalization;Swing Bed Unit Plan Progress Progressing toward goals OT Frequency 3 times/week OT - Next Appointment 10/14/18 If this is the last treatment note, it will serve as the discharge summary Yes End of Session Safety End of Session Safety Call light within reach;Nursing aware of session;Transfer status education Objective Objective Pt supine in bed upon arrival 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 Pt presents with SOB with activity, decreased independence with LB dressing, grooming, and functional transfers; decreased standing activity tolerance, balance, and safety for functional tasks. Pt would benefit from continued OT at the acute care setting in order to address above stated deficits and maximize functional independence. Anticipate Pt to require subacute therapy prior to d/c home. * Yris Salazar RN - 10/14/2018 10:03 AM CDT The Important Message from Medicare form was reviewed with patient and/or patient???s investment representative by Kimberlee Gerard. The form was initialed by patient and/or patient???s investment representative as having been received and understood. A copy of the form was left with patient and a copy of the form was scanned into the patient's record * Anna Pendleton PA-C - 10/14/2018 9:45 AM CDT Images from the original note were not included. Juana Klein is a 78-year-old female patient. CHIEF COMPLAINT: Hemorrhagic shock (CMS/HCC) Current Facility-Administered Medications Medication Dose Route Frequency Provider Last Rate Last Dose ??? amiodarone (PACERONE) tablet 200 mg 200 mg Oral Q3 Days Lloyd Hernandez MD 200 mg at 10/12/18 0828 ??? citalopram (CELEXA) tablet 40 mg 40 mg Oral Daily Lloyd Hernandez MD 40 mg at 07/12/19 0842 ??? duloxetine (CYMBALTA) capsule 60 mg 60 mg Oral Daily Lloyd Hernandez MD 60 mg at 10/14/18841 ??? ferrous sulfate (65 mg elemental) tablet 325 mg 325 mg Oral TID WC Lloyd Hernandez MD 325 mg at 10/14/18841 ??? gabapentin (NEURONTIN) capsule 100 mg 100 mg Oral TID Lloyd Hernandez MD 100 mg at 10/14/18841 ??? lorazepam (ATIVAN) tablet 0.5 mg 0.5 mg Oral BID Lloyd Hernandez MD 0.5 mg at 10/14/18841 ??? pantoprazole (PROTONIX) injection 40 mg 40 mg Intravenous BID Lloyd Hernandez MD 40 mg at 10/14/18841 ??? piperacillin-tazobactam (ZOSYN) 3.375 g in sodium chloride 0.9 % 50 mL IVPB 3.375 g [id number] Lourdes Foster MD 12.5 mL/hr at 10/14/18841 3.375 g at 10/14/18841 ??? sucralfate (CARAFATE) 1 GM/10ML suspension 1 g 1 g Oral 4 times per day Samm Graham MD 1 g at 10/14/18843 Vitals: 10/14/18 0757 BP: 105/57 Pulse: 94 Resp: 18 Temp: 98.7 ??F (37.1 ??C) SpO2: 97% Today's Weight: Last Recorded Weight 10/14/18 0400 Weight: 67.1 kg (147 lb 14.9 oz) Weight change in the last 24 hours: -2.7 kg (-15.2 oz) Recent Results (from the past 24 hour(s)) HEMOGLOBIN AND HEMATOCRIT Collection Time: 10/13/18 8:08 PM Result Value Ref Range HGB 9.5 (L) 12.0 - 16.0 G/DL HCT 29.3 (L) 36.0 - 47.0 % COMPREHENSIVE METABOLIC PANEL Collection Time: 10/14/18 8:29 AM Result Value Ref Range SODIUM 133 (L) 136 - 145 MMOL/L POTASSIUM 3.9 3.5 - 5.1 MMOL/L CHLORIDE 102 98 - 107 MMOL/L CO2 25.3 21.0 - 32.0 MMOL/L GLUCOSE 113 (H) 74 - 106 MG/DL BUN 9 7 - 18 MG/DL CREATININE 0.80 0.55 - 1.02 MG/DL CALCIUM 8.1 (L) 8.5 - 10.1 MG/DL TOTAL BILIRUBIN 0.6 0.2 - 1.0 MG/DL ALK PHOS 58 55 - 142 U/L AST 7 (L) 15 - 37 U/L ALT 10 (L) 13 - 56 U/L TOTAL PROTEIN 6.2 (L) 6.4 - 8.2 G/DL ALBUMIN 3.0 (L) 3.4 - 5.0 G/DL ANION GAP 5.7 5.0 - 15.0 MMOL/L OSMOLALITY (CALC) 275 MOSM/KG eGFR Non-Afr. Amer. 71 (L) >90 ML/MIN/1.73 M2 eGFR Afr. Amer. 82 (L) >90 ML/MIN/1.73 M2 GFR NOTES THE ESTIMATED GFR IS CALCULATED USING THE 2009 CKD-EPI EQUATION. THE FOLLOWING CATEGORIES FOR GRADING RENAL FUNCTION ARE RECOMMENDED BY THE INTERNATIONAL SOCIETY OF NEPHROLOGY (KDIGO 2012 CLINICAL PRACTICE GUIDELINE). HEMOGLOBIN AND HEMATOCRIT Collection Time: 10/14/18 8:29 AM Result Value Ref Range HGB 10.4 (L) 12.0 - 16.0 G/DL HCT 31.8 (L) 36.0 - 47.0 % Review of Systems Constitutional: Negative for chills, fever and malaise/fatigue. HENT: Negative for hearing loss. Eyes: Negative for double vision. Respiratory: Negative for cough, sputum production, shortness of breath and wheezing. Cardiovascular: Negative for chest pain, palpitations, orthopnea, leg swelling and PND. Gastrointestinal: Negative for abdominal pain and vomiting. Genitourinary: Negative for dysuria and hematuria. Musculoskeletal: Negative for back pain. Skin: Negative for rash. Neurological: Negative for dizziness, weakness and headaches. Endo/Heme/Allergies: Does not bruise/bleed easily. Physical Exam Constitutional: She is oriented to person, place, and time. She appears well- developed and well-nourished. No distress. HENT: Nose: No mucosal edema. Mouth/Throat: Oropharynx is clear and moist and mucous membranes are normal. No oropharyngeal exudate. Neck: Neck supple. No JVD present. Carotid bruit is not present. Cardiovascular: Normal rate, regular rhythm, S1 normal, S2 normal and intact distal pulses. No extrasystoles are present. Exam reveals no gallop. No murmur heard. Pulmonary/Chest: Effort normal and breath sounds normal. No respiratory distress. Abdominal: She exhibits no mass. There is no hepatosplenomegaly. There is no tenderness. Musculoskeletal: She exhibits no deformity. Neurological: She is alert and oriented to person, place, and time. Skin: Skin is warm and dry. No erythema. Psychiatric: She has a normal mood and affect. Her behavior is normal. Thought content normal. tearful Vitals reviewed. TELEMETRY: Off tele, ECG this admission showed NSr SUBJECTIVE: Tearful about going home, concerned about bleeding and risk of CVA, with history of stroke.No cp, no weakness, no sob ASSESSMENT/PLAN: 1. Severe MR WIll need evaluation by Valve team clip vs surgical intervention. 2. Paroxysmal atrial fibrillation Continue amio Remains in NSR stop pradaxa, high risk for recurrent bleeding/anemia on OAC. No identifiable source. may be candidate for watchman procedure in the future. 3. Anemia GI , ENT workup unremarkable transfused this admission, admission hgb 4.3 , todays hgb 10.4 ANNA PENDLETON PA-C 10/14/2018 9:45 AM Cosigned by Go Richards MD at 10/14/2018 5:59 PM CDT Associated attestation - Go Richards MD - 10/14/2018 5:59 PM CDT I, GO RICHARDS MD, performed an examination of the patient and discussed the management with the Advanced Practice Provider (JOANNA). I reviewed the JOANNA's progress note and agree with the findings and plan of care, except as I have documented. Pt worried about stroke risk while off OAC I discussed that is a concern, but larger concern is life threatening bleeding on OAC My recommendation is to hold off OAC for at least 3-4 weeks, then we can re evaluate Needs valve clinic evaluation for MR/Watchman versus Surgery She understands GO RICHARDS MD * Vero Holman, DUMPLING MACHINE OPERATOR - 10/14/2018 8:00 AM CDT PT Treatment Discharge Recommendation: Swing bed unit Activity Recommendation for manager plant: Pt is currently an assist of 1 with 2ww and gait belt 10/14/18 0800 Therapy Visit Ordering Provider Lloyd Hernandez MD Subjective Nursing okayed session. Pt up in chair at arrival, no family present. Pt anticipates to d/c to a swing bed prior to d/c home for continuation of therapy. Pt reported neck stiffness howevereager to participate in therapy. Reason for admission Pt presents with worsening generalized weakness x2 days. Pt also complains ioflightheadedness with positional changes and was found to be orthostatic in the ED. 10/11 pt was admitted to ICU for management of HGB 4.3 receiving 3 units of PRBC's. EGD showed no evidence of active bleeding, but showed reflux esophagitis and streaky gastritis....PMH: mitral valve disorder, migraine, GERD, depression, CAD, a-fib, anxiety, TKA, appendectomy....Activity: up with assist....Orders: eval and treat. Verified Two Patient Identifiers Yes Patient consents to therapy Yes Time Calculation Start Time 0800 Stop Time 0823 Time Calculation (min) 23 min Precautions General Precautions Fall Risk Instructed on Precautions Yes;Verbalizes understanding Other IV Pain Pain Yes Pain Score (Did not quantify) Location neck Interventions Re-direction;Relaxation;Re-positioning;Range of motion Activity Tolerance Activity Tolerance Comments Limited by weakness and deconditioning. Rest breaks to prevent over exertion. No reports of lightheadedness/dizziness this session. BP 110/60mmHg, sp02 97% on room air with HR 94BPM and remained WFL with RPE scale 4. Cognition Overall Cognitive Status WFL Arousal/Alertness Appropriate responses to stimuli Attention Span Appears intact Memory Appears intact Orientation Level Oriented X4 Following Commands Follows all commands and directions without difficulty Safety Judgment Decreased awareness of need for assistance Awareness of Errors Good awareness of errors made Deficits Decreased awareness of deficits Problem Solving Able to problem solve independently Bed Mobility Supine to Sit SBA/supervision Sit to Supine SBA/supervision Other (Comment) With HOB slightly elevated, pt completed supine <> sit EOB with extra time. TRANSFERS Stand Pivot Transfers SBA/supervision;Contact guard assist Sit to Stand SBA/supervision;Contact guard assist Other (Comment) Utilized 2ww for stability. Fair eccentric control towards descent. Gait Gait Assistance SBA/supervision;Contact guard assist;With gait belt Assistive Device 2 Wheeled walker Ambulation Distance (Feet) 100ft Other (Comment) With emphasis on turns, directional changes, and self monitoring of exertion, pt demonstrated decrease yohana, step through pattern, inadequate heel-toe gait. Pt mildly unsteady, however no true LOB noted. Balance Sitting - Static SBA Sitting - Dynamic SBA Standing - Static SBA;CGA;Support of both upper extremities Standing - Dynamic SBA;CGA;Support of both upper extremities Other (Comment) No LOB noted with 2ww Patient/Family Training Transfer Training Education on technique Gait Training Education on self monitoring of exertion and scanning environment appropriately Precautions Education on energy conservation techniques. Other (Comment) Education on the role of PT during hospitalization. Education on utilizing call light for assistance. PT Assessment PT Assessment Pt making gradual progress towards goals however still limited by weakness, fatigue, and activity intolerance, requiring assistance with all functional tasks at this time. Pt may benefit continuing with therapy at a short term rehab in order to address these deficits to return to PLOF. Pt to continue with POC during hospitalization. Recommendation PT Recommendation PT during Hospitalization;Swing Bed Unit Plan PT Treatments/Interventions Gait Training;Therapeutic Exercises;Therapeutic Activities;Neuromuscular re-education;Patient/family training Progress Progressing toward goals PT Frequency 5 times/week PT - Next Appointment 10/14/18 If this is the last treatment note,it will serve as the discharge summary Yes End of Session Safety End of Session Safety Call light within reach;Nursing aware of session * Lourdes Foster MD - 10/13/2018 4:37 PM CDT PROGRESS NOTE Chief complaint: GIB SUBJECTIVE Patient seen and examined. Doing okay , NO N/V/F No abd pain , No Chest pain appears weak OBJECTIVE Patient Vitals for the past 24 hrs: BP Temp Temp src Pulse Resp SpO2 Weight 10/12/18 1136 115/50 97.7 ??F (36.5 ??C) -- 76 -- 98 % -- 10/12/18 0756 127/57 98.2 ??F (36.8 ??C) Oral 83 -- 92 % -- 10/12/18 0405 126/65 98.1 ??F (36.7 ??C) Oral 79 18 93 % 68.4 kg (150 lb 12.7 oz) 10/11/18 2335 114/63 98.5 ??F (36.9 ??C) Oral 79 24 95 % -- 10/11/18 2331 114/63 98.4 ??F (36.9 ??C) -- 77 -- 95 % -- 10/11/18 2100 144/63 98.7 ??F (37.1 ??C) Tympanic 84 28 91 % 66.1 kg (145 lb 11.6 oz) 10/11/18 2039 146/66 -- -- 85 23 92 % -- 10/11/181999 -- 99 ??F (37.2 ??C) Tympanic 81 20 94 % -- 10/11/18 1645 137/61 99.5 ??F (37.5 ??C) Tympanic 80 21 95 % -- 10/11/18 1530 125/52 -- -- 77 22 94 % -- 10/11/18 1515 124/82 -- -- 76 24 92 % -- 10/11/18 1500 135/58 -- -- 74 27 93 % -- 10/11/18 1445 136/66 -- -- 75 30 91 % -- 10/11/18 1430 120/53 -- -- 74 21 98 % -- 10/11/18 1415 130/48 -- -- 74 25 100 % -- 10/11/18 1400 103/71 -- -- 70 21 97 % -- 10/11/18 1345 116/60 -- -- 70 16 99 % -- 10/11/18 1330 119/46 -- -- 72 20 99 % -- 10/11/18 1315 118/54 -- -- 71 24 99 % -- 10/11/18 1300 127/59 -- -- 68 27 97 % -- 10/11/18 1245 117/51 -- -- 65 24 98 % -- 10/11/18 1230 111/50 -- -- 65 25 97 % -- ROS ROS Review of Systems: General: No fatigue Skin: Denies: Itching Eyes: Denies: Blurred Vision Ears: Denies: Discharge Nose/ Sinuses: Denies: Congestion Neck: Denies: Enlarged Lymph Nodes Respiratory: Denies: Cough Cardiac: Denies: Chest Pain Gastrointestinal: Denies: Abdominal Distension, Abdominal Pain Urinary: Denies: Flank Pain Musculoskeletal: Denies: Back Pain Neurologic: : Oriented [id number]: Confusion Hematologic/Lymphatic: Denies: Easy Bleeding PHYSICAL EXAMINATION: Physical Exam General Appearance: : Well Developed Skin: : Normal Color Head: : Normocephalic Eyes: : Conjunctiva Clear ENT: : Oropharynx Normal Neck: : Non-Tender Chest and Respiratory: : Breath Sounds Equal: Lungs Clear-Auscultation Heart: : No Murmur: Regular Rate/Rythm Abdominal: No Organomegaly Non-Tender Normal Bowel Sounds Soft Vascular: : Normal Capillary Refill Musculoskeletal: : gen weakness Neurologic: : Alert and Oriented X3: CN 2-12 Intact: No Gross Motor Deficits Mental Status: : Normal Affect Back: : Non Tender Peripheral Pulses: Present Dorsalis Pedis - L, Present Dorsalis Pedis - R LABS: Recent Labs 10/10/18171710/10/18230910/11/18 0610/11/18 1530 10/11/18 2344 10/12/18 0956 WBC 6.3 6.3 7.2 -- -- -- -- HGB 4.3* 5.4* 9.1* < > 9.3* 8.8* 10.1* HCT 14.0* 18.0* 27.7* < > 28.6* 27.3* 31.2* MCV 92.7 93.8 89.1 -- -- -- -- PLT 245 245 218 -- -- -- -- RBC 1.51* 1.92* 3.11* -- -- -- -- < > = values in this interval not displayed. Recent Labs Lab 10/10/18171710/10/18230910/11/18 0600 10/12/18 0957 NA 130* 136 135* 135* K 4.1 4.0 4.6 3.9 CL 98 106 107 104 CO2 26.6 24.9 23.1 25.5 AGAP 5.4 5.1 4.9* 5.5 BUN 24 18 16 7 CR 0.89 0.72 0.75 0.70 GFRNON 63* 81* 77* 84* GFR 72* >90 89* >90 GLU 98 91 -- -- CA 7.6* 7.7* 7.7* 7.9* TP 5.0* 4.9* -- -- ALB 2.6* 2.8* -- -- TBIL 0.2 0.3 -- -- ALKP 34* 34* -- -- AST 8* 7* -- -- ALT 13* 10* -- -- Intake/Output Summary (Last 24 hours) at 10/12/2018 1225 Last data filed at 10/12/2018 1159 Gross per 24 hour Intake 200 ml Output 1600 ml Net -1400 ml RADIOLOGY : REVIEWED MEDICATIONS Scheduled medications ??? amiodarone 200 mg Oral Q3 Days ??? citalopram 40 mg Oral Daily ??? duloxetine 60 mg Oral Daily ??? ferrous sulfate (65 mg elemental) 325 mg Oral TID WC ??? gabapentin 100 mg Oral TID ??? lorazepam 0.5 mg Oral BID ??? pantoprazole 40 mg Intravenous BID ??? piperacillin-tazobactam 3.375 g Intravenous Q8H ??? sucralfate 1 g Oral 4 times per day Infusion PRN Microbiology Results (last 14 days) Procedure Component Value Units Date/Time CULTURE, BACTERIA, BLOOD [[id number]] Collected: 10/10/18 2310 Order Status: Completed Lab Status: Preliminary result Updated: 10/11/18 2347 Specimen: BLOOD Spec. Description BLOOD Special Requests: NO SPECIAL REQUEST Culture Result: NO GROWTH 1 DAY MRSA SCREENING [[id number]] Collected: 10/10/18 2304 Order Status: Completed Lab Status: Final result Updated: 10/11/18 1135 Specimen: NASAL SPECIMEN SOURCE RESPIRATORY, NOSE MRSA BY PCR METHICILLIN RESISTANT STAPH AUREUS NOT DETECTED OCCULT BLOOD, FECES [[id number]] Order Status: Canceled Lab Status: No result Specimen: STOOL CULTURE URINE [[id number]] Collected: 10/10/18 1805 Order Status: Completed Lab Status: Final result Updated: 10/11/182129 Specimen: URINE, CLEAN CATCH Spec. Description URINE CLEAN CATCH Special Requests: NO SPECIAL REQUEST Culture Result: NO GROWTH (< OR = 1,000 CFU/ML) CULTURE, BACTERIA, BLOOD [[id number]] Collected: 10/10/18 0600 Order Status: Completed Lab Status: Preliminary result Updated: 10/11/18 2347 Specimen: BLOOD Spec. Description BLOOD Special Requests: NO SPECIAL REQUEST Culture Result: NO GROWTH <24 HRS ASSESSMENT /PLAN Juana Klein is a 78-year-old female PROBLEM LIST: . Acute blood loss anemia secondary to GI bleed black stools/melena Status multiple units of PRBC transfusion. Status post EGD showing no evidence of active bleeding. Showed reflux esophagitis and streaky gastritis. Blood seen at the vocal cord CT chest done showed pneumonia. Less likely pulmonary hemorrhage. Some hyperemia of the upper airway. Will ask ENT to evalif needed. Clinically no distress. Continue PPI twice daily. Continue monitor hemoglobin levels. Continue Carafate Cardiology recs to stop pradaxa and recs watchman procedure Right-sided pneumonia/bronchitis: Less likely pulmonary hemorrhage. Started antibiotics. Check sputum culture. Pulmonary notified. Upper airway edema seen on the CT, ENT to evaluate. Chronic grade 1 diastolic dysfunction with EF 70% [not in acute exacerbation] WALDO on 10/2018 EF 60-65% with severe Mitral regurgitation; atrial septal aneurysm with PFO with small LEFT to RIGHT shunt Cardiology following, Monitor Vol status and Caraftae CAD Generalized anxiety disorder Migraine headaches ?? Generalized weakness: PT OT evaluation. May need swing bed. DVT prophylaxis with SCDs only. ?? A. fib is rate controlled. Resume amiodarone and metoprolol. Etiology following. Hold pradexa for now. Anxiety: Resume Cymbalta and Lexapro Iron deficiency anemia: Resume iron replacement Neuropathy: Resume gabapentin ?? DVT Prophylaxis: SCD Code Status: Full Code Monitor H/H and await rehab placement LOURDES FOSTER MD 12:25 PM 10/12/2018 * Yris Salazar RN - 10/13/2018 11:34 AM CDT DISCHARGE PLAN: SWING BED CM has spoken to patient after a recommendation of SWB was made by therapy,. Patient is open to going and reqested that referrals be sent to [facility], and [facility]. Referrals sent and [facility] request sent. * Marlene Santos PA-C - 10/13/2018 10:31 AM CDT Images from the original note were not included. Progress Note ID: Juana Klein is a 78-year-old female [facility] with Dr. Richards : 1940 JARRET MARTINEZ MD LOS: 3 days CHIEF COMPLAINT: Follow-up Anemia, MR, H/O afib SUBJECTIVE: H/H stable No SOB/CP. Feeling better daily. Review of Systems Constitutional: Denies recent weight gains/losses or fatigue Medications: Scheduled Meds: ??? amiodarone 200 mg Oral Q3 Days ??? citalopram 40 mg Oral Daily ??? duloxetine 60 mg Oral Daily ??? ferrous sulfate (65 mg elemental) 325 mg Oral TID WC ??? gabapentin 100 mg Oral TID ??? lorazepam 0.5 mg Oral BID ??? pantoprazole 40 mg Intravenous BID ??? piperacillin-tazobactam 3.375 g Intravenous Q8H ??? sucralfate 1 g Oral 4 times per day Continuous Infusions: PRN Meds: OBJECTIVE Intake/Output last 3 shifts: I/O last 3 completed shifts: In: 350 [P.O.:200; IV Piggyback:150] Out: 600 [Urine:600] Today's Weight: Last Recorded Weight 10/13/18 0416 Weight: 65.7 kg (144 lb 13.5 oz) Weight change in the last 24 hours: an appropriate measurement is not found Vital signs in the last 24 hours: Temp: [97.7 ??F (36.5 ??C)-98.2 ??F (36.8 ??C)] 98.2 ??F (36.8 ??C) Pulse: [76-90] 90 Resp: [16-20] 20 BP: (115-154)/(50-58) 154/58 Physical Exam GENERAL: Well developed, well nourished, in no apparent distress. RESPIRATORY: No intercostal retractions noted. CV: Regular rate/rhythm. Labs and Cultures: Lab Results Component Value Date NA 134 (L) 10/13/2018 K 3.9 10/13/2018 CL 104 10/13/2018 CO2 25.4 10/13/2018 AGAP 4.6 (L) 10/13/2018 BUN 8 10/13/2018 CR 0.65 10/13/2018 GFRNON 86 (L) 10/13/2018 GFR >90 10/13/2018 GLU 109 (H) 10/13/2018 CA 8.0 (L) 10/13/2018 Lab Results Component Value Date WBC 7.2 10/11/2018 HGB 9.5 (L) 10/13/2018 PLT 218 10/11/2018 Lab Results Component Value Date TP 5.7 (L) 10/13/2018 ALB 2.9 (L) 10/13/2018 ALT 12 (L) 10/13/2018 TSH 1.880 10/10/2018 ASSESSMENT/PLAN: 1. Anemia 2. Afib 3. MR Continue to monitor H/H. Further discussion regarding catheter based vs surgical procedure for afiband MR. Discontinue and do not restart Pradaxa. Signed MARLENE SANTOS PA-C 10/13/2018 10:31 AM Cosigned by Go Richards MD at 10/13/2018 6:27 PM CDT Associated attestation - Go Richards MD - 10/13/2018 6:27 PM CDT I, GO RICHARDS MD, discussed the management with the Advanced Practice Provider (JOANNA). I reviewed the JOANNA's progress note and agree with the findings and plan of care, except as I have documented. * Luana Nieves MD - 10/13/2018 8:31 AM CDT [facility] PROGRESS NOTE Reason for Admission: ??HEMORRHAGIC SHOCK ANEMIA Hemorrhagic shock (CMS/HCC) Hemorrhagic shock (CMS/HCC) ? Reason for Consult: CAP/Possible Pulm HTN SUBJECTIVE Patient reports she is doing well this AM. She denies any respiratory problems this AM. Denies hemoptysis. Denies SOB/wheezing. Review of Systems Constitutional: Negative for chills, fever and weight loss. HENT: Negative. Eyes: Negative. Respiratory: Negative for cough, hemoptysis, sputum production and shortness of breath. Cardiovascular: Negative for chest pain, palpitations, orthopnea and leg swelling. Gastrointestinal: Negative. Genitourinary: Negative. Musculoskeletal: Negative. Skin: Negative. Neurological: Negative. OBJECTIVE Vitals: Filed Vitals: 10/12/18 1928 10/12/18 1928 10/13/18 0416 10/13/18 0813 BP: 127/54 127/54 142/57 154/58 Pulse: 81 80 90 Resp: 18 18 Temp: 98.2 ??F (36.8 ??C) 98.2 ??F (36.8 ??C) 98.1 ??F (36.7 ??C) 98.2 ??F (36.8 ??C) TempSrc: Oral Oral Oral SpO2: 97% 96% 96% Weight: 65.7 kg (144 lb 13.5 oz) Height: Physical Exam Constitutional: She is oriented to person, place, and time. She appears well- developed and well-nourished. HENT: Head: Normocephalic and atraumatic. Eyes: EOM are normal. Pupils are equal, round, and reactive to light. Neck: Normal range of motion. Neck supple. Cardiovascular: Normal rate, regular rhythm and normal heart sounds. Pulmonary/Chest: Effort normal and breath sounds normal. No respiratory distress. She has no wheezes. She exhibits no tenderness. Abdominal: Soft. Bowel sounds are normal. She exhibits no distension. Neurological: She is alert and oriented to person, place, and time. Skin: Skin is warm and dry. Medications: ??? amiodarone 200 mg Oral Q3 Days ??? citalopram 40 mg Oral Daily ??? duloxetine 60 mg Oral Daily ??? ferrous sulfate (65 mg elemental) 325 mg Oral TID WC ??? gabapentin 100 mg Oral TID ??? lorazepam 0.5 mg Oral BID ??? pantoprazole 40 mg Intravenous BID ??? piperacillin-tazobactam 3.375 g Intravenous Q8H ??? sucralfate 1 g Oral 4 times per day PRN: No Known Allergies Intake/Output Summary (Last 24 hours) at 10/13/2018 0831 Last data filed at 10/13/2018 0511 Gross per 24 hour Intake 350 ml Output 600 ml Net -250 ml Labs: Recent Labs Lab 10/10/18 1718 10/10/18 2310 10/11/18 0600 10/11/18 1005 10/11/18 1530 10/11/18 2344 10/12/18 0956 10/12/18 2105 WBC 6.3 6.3 7.2 -- -- -- -- -- RBC 1.51* 1.92* 3.11* -- -- -- -- -- HGB 4.3* 5.4* 9.1* 7.0* 9.3* 8.8* 10.1* 9.2* HCT 14.0* 18.0* 27.7* 22.8* 28.6* 27.3* 31.2* 28.7* MCV 92.7 93.8 89.1 -- -- -- -- -- MCH 28.5 28.1 29.3 -- -- -- -- -- MCHC 30.7* 30.0* 32.9* -- -- -- -- -- PLT 245 245 218 -- -- -- -- -- RDW 13.9 14.0 15.8* -- -- -- -- -- NEUC 4.40 -- -- -- -- -- -- -- [facility] 1.08 1.27 1.05 -- -- -- -- -- MONOC 0.64 0.70 0.62 -- -- -- -- -- EOSC 0.12 0.14 0.15 -- -- -- -- -- BASOC 0.02 0.03 0.05 -- -- -- -- -- Recent Labs Lab 10/10/18 1718 10/10/18 2310 10/11/18 0600 10/12/18 0957 NA 130* 136 135* 135* K 4.1 4.0 4.6 3.9 CL 98 106 107 104 CO2 26.6 24.9 23.1 25.5 BUN 24 18 16 7 CR 0.89 0.72 0.75 0.70 GFRNON 63* 81* 77* 84* GFR 72* >90 89* >90 GLU 98 91 -- -- CA 7.6* 7.7* 7.7* 7.9* TP 5.0* 4.9* -- -- ALB 2.6* 2.8* -- -- TBIL 0.2 0.3 -- -- ALKP 34* 34* -- -- AST 8* 7* -- -- ALT 13* 10* -- -- MAGNESIUM 1.9 2.2 -- -- Recent Imaging: Radiology Results (Last 48 hours) 10/11/18 1606 CTA CHEST Final result Impression: Impression: 1. No pulmonary embolism identified. 2. The pulmonary arteries are diffusely dilated, compatible with underlying pulmonary arterial hypertension. 3. Right basilar opacities are seen within the right upper lobe, potentially representing an infectious or inflammatory process. Given the history of hemoptysis, findings may represent pulmonary hemorrhage. 4. Trace bilateral pleural effusions with atelectasis. 5. Mild to moderate cardiomegaly. Interpreted By: Shaji Holbrook MD, 10/11/2018 4:39 PM 10/11/[address] SOFT TISSUE NECK W CON Final result Impression: IMPRESSION: 1. Suggestion of mild mucosal edema along the oropharynx, hypopharynx, and supraglottic larynx. No obvious laryngeal mass. Could correlate with direct visualization. 2. No suspicious appearing or enlarged lymph nodes by size criteria seen in the neck. 3. No soft tissue collections. 4. Bilateral pleural effusions and partially visualized groundglass opacities. Please refer to separately reported CTA of the chest for additional description of pulmonary findings. Interpreted By: Ollie Roper MD, 10/11/2018 4:20 PM ASSESSMENT/PLAN Juana J Lala is a 78-year-old female,with a past medical history of chronic iron deficiency anemia on iron supplements, A. fib on Pradaxa, GERD, prior history of ulcerative disease who was transferred from [facility] to [facility] for found anemia (hemoglobin 4.3) and orthostatics. Patient was transfused with 3 units and subsequent GI endoscopic evaluation revealed blood on the vocal cords and CTA chest showed diffuse groundglass opacities in the right upper lung. [facility] was consulted for evaluation of CAP and possible pulmonary hemorrhage # Community-acquired pneumonia # Acute on chronic anemia of unknown source - Subjectively; several week history of progressive malaise and weakness, anemia without signs of bleed, no history of pulmonary disease, symptoms of cough with intermittent sputum production and wheezing - Objectively; afebrile, SpO2 91-100% on room air, hemodynamically stable - Transfused 3 units PRBC, hemodynamically stable with stable hemoglobin after the fact - No hemoptysis throughout this admission ?? Pertinent images: - CTA chest, 10/11; trace bilateral pleural effusions with atelectasis, diffuse groundglass opacitiesin the right upper lobe - CTA neck, 10/11; mild mucosal edema of the oropharynx, hypopharynx and supraglottic larynx no obvious laryngeal mass ?? Assessment: -Suspect respiratory changes 2/2 Community Acquired Pneumonia. No hx of hemoptysis or hypoxemia making pulmonary hemorrhage very unlikely. No indication for bronchoscopy. Plan: - Would recommend transitioning IV zosyn to PO Augmentin 875/125 BID for additional 7 days for a full 10 days of abx. - Recommend repeat CT scan in 6-8 weeks to ensure ground glass opacities are resulved. - Patient to follow up with [facility] in [place] in [address] Please have patient call [phone] to schedule appointment. ? Thank you for consulting [facility]. The patient was discussed with and seen by Dr. Bal on rounds. We will sign-off. LUANA NIEVES MD 10/13/2018 Cosigned by Nina Bal MD at 10/13/2018 3:44 PM CDT Associated attestation - Nina Bal MD - 10/13/2018 3:44 PM CDT Teaching Physician - I, NINA BAL MD, performed a History and Physical examination of the patientand discussed the management with the resident. I reviewed the Resident's note and agree with the findings and plan of care, except as I have documented. Right upper lobe density on CT chest. No reported hemoptysis. Anemia which seems to be unexplained.Upper endoscopy unremarkable. Long discussion with patient regarding findings and plan. Plan for now is to treat for possible pneumonia. Repeat CT chest in 6-8 weeks. If persistent finding on the right upper lobe on CT chest then further workup is needed at that time. * Oksana Patterson RN - 10/12/2018 6:39 PM CDT Problem: Venous Thromboembolism - Risk of Goal: Absence of venous thromboembolism Outcome: Adequate for Discharge Date Met: 10/12/18 Patient up with 1 assist Problem: Bleeding - Risk of Goal: Absence of impaired coagulation signs and symptoms Outcome: Progressing No evidence of bleeding Problem: Reduced risk for falls/injury Goal: Reduced Risk for Falls/Injury Outcome: Progressing No falls this shift * ALBERT Muhammad - 10/12/2018 12:41 PM CDT Speech Therapy Treatment Note Recommended Diet: As medically indicated Summary Statement: This patient presents with clinically functional swallow based on bedside assessment. Time In: 1232 Time Out: 1248 Total Time: 16 Objective: This patient was seen at bedside for initial swallowing evaluation. Patient accepted trials of thin, pureed and soft solid consistencies. Oral mechanism--Tongue protruded to midline and retracted and lateralized with good strength and range. Lips protruded and retracted with good strength and range. Good range of motion of jaw. Velum elevated symmetrically. No facial droop or assymmetry. No discernable dysarthria. Voice was normal. Weak cough. Oral phase--Good lip seal around spoon and straw. Timely anterior-posterior transit. No leakage, spillage or pocketing. Pharyngeal phase--Timely trigger of the pharyngeal swallow. Clinically adequate hyolaryngeal elevation. No clinical signs/symptoms of aspiration including choking, coughing or wet respiration. 10/12/18 1200 Therapy Visit SEARCH CONSULTANT Received on 10/12/18 Subjective Patient was alert and attempting to order lunch. Reason for Admission Hemorrhagic shock; chronic anemia and progressive weakness. Comorbidities Relevant for SEARCH CONSULTANT Chronic afib, PFO, GERD, anxiety disorder, migraine Prior Level of Function Patient states she has no swallowing difficulty pre-morbidly. Verified Two Patient Identifiers Yes Patient consents to Therapy Yes Time Calculation Start Time 1232 Precautions Precautions Fall risk Instructed on Precautions Yes;Needs reinforcement and education Pain Pain Patient does not offer or c/o pain SEARCH CONSULTANT Recommendations Recommendations No skilled SEARCH CONSULTANT Recommended Solid Diet Regular Recommended Liquid Consistency Thin Recommended Medication Form Whole Plan Progress Discontinue SEARCH CONSULTANT If this is the last treatment note, it will serve as the discharge summary Yes End of Session Safety End of Session Safety Bed alarm set/activated;Call light within reach * Lourdes Foster MD - 10/12/2018 12:25 PM CDT PROGRESS NOTE Chief complaint: GIB SUBJECTIVE Patient seen and examined. Sitting and doing better, No N/V/F No abd pain , No chest pain no acute bleeding today T max 99.5 OBJECTIVE Patient Vitals for the past 24 hrs: BP Temp Temp src Pulse Resp SpO2 Weight 10/12/18 1136 115/50 97.7 ??F (36.5 ??C) -- 76 -- 98 % -- 10/12/18 0756 127/57 98.2 ??F (36.8 ??C) Oral 83 -- 92 % -- 10/12/18 0405 126/65 98.1 ??F (36.7 ??C) Oral 79 18 93 % 68.4 kg (150 lb 12.7 oz) 10/11/18 2335 114/63 98.5 ??F (36.9 ??C) Oral 79 24 95 % -- 10/11/18 2331 114/63 98.4 ??F (36.9 ??C) -- 77 -- 95 % -- 10/11/18 2100 144/63 98.7 ??F (37.1 ??C) Tympanic 84 28 91 % 66.1 kg (145 lb 11.6 oz) 10/11/18 2039 146/66 -- -- 85 23 92 % -- 10/11/181999 -- 99 ??F (37.2 ??C) Tympanic 81 20 94 % -- 10/11/18 1645 137/61 99.5 ??F (37.5 ??C) Tympanic 80 21 95 % -- 10/11/18 1530 125/52 -- -- 77 22 94 % -- 10/11/18 1515 124/82 -- -- 76 24 92 % -- 10/11/18 1500 135/58 -- -- 74 27 93 % -- 10/11/18 1445 136/66 -- -- 75 30 91 % -- 10/11/18 1430 120/53 -- -- 74 21 98 % -- 10/11/18 1415 130/48 -- -- 74 25 100 % -- 10/11/18 1400 103/71 -- -- 70 21 97 % -- 10/11/18 1345 116/60 -- -- 70 16 99 % -- 10/11/18 1330 119/46 -- -- 72 20 99 % -- 10/11/18 1315 118/54 -- -- 71 24 99 % -- 10/11/18 1300 127/59 -- -- 68 27 97 % -- 10/11/18 1245 117/51 -- -- 65 24 98 % -- 10/11/18 1230 111/50 -- -- 65 25 97 % -- ROS ROS Review of Systems: General: No fatigue Skin: Denies: Itching Eyes: Denies: Blurred Vision Ears: Denies: Discharge Nose/ Sinuses: Denies: Congestion Neck: Denies: Enlarged Lymph Nodes Respiratory: Denies: Cough Cardiac: Denies: Chest Pain Gastrointestinal: Denies: Abdominal Distension, Abdominal Pain Urinary: Denies: Flank Pain Musculoskeletal: Denies: Back Pain Neurologic: : Oriented [id number]: Confusion Hematologic/Lymphatic: Denies: Easy Bleeding PHYSICAL EXAMINATION: Physical Exam General Appearance: : Well Developed Skin: : Normal Color Head: : Normocephalic Eyes: : Conjunctiva Clear ENT: : Oropharynx Normal Neck: : Non-Tender Chest and Respiratory: : Breath Sounds Equal: Lungs Clear-Auscultation Heart: : No Murmur: Regular Rate/Rythm Abdominal: No Organomegaly Non-Tender Normal Bowel Sounds Soft Vascular: : Normal Capillary Refill Musculoskeletal: : gen weakness Neurologic: : Alert and Oriented X3: CN 2-12 Intact: No Gross Motor Deficits Mental Status: : Normal Affect Back: : Non Tender Peripheral Pulses: Present Dorsalis Pedis - L, Present Dorsalis Pedis - R LABS: Recent Labs 10/10/18171710/10/18230910/11/18 0600 10/11/18 1530 10/11/18 2344 10/12/18 0956 WBC 6.3 6.3 7.2 -- -- -- -- HGB 4.3* 5.4* 9.1* < > 9.3* 8.8* 10.1* HCT 14.0* 18.0* 27.7* < > 28.6* 27.3* 31.2* MCV 92.7 93.8 89.1 -- -- -- -- PLT 245 245 218 -- -- -- -- RBC 1.51* 1.92* 3.11* -- -- -- -- < > = values in this interval not displayed. Recent Labs Lab 10/10/18171710/10/18230910/11/18 0600 10/12/18 0957 NA 130* 136 135* 135* K 4.1 4.0 4.6 3.9 CL 98 106 107 104 CO2 26.6 24.9 23.1 25.5 AGAP 5.4 5.1 4.9* 5.5 BUN 24 18 16 7 CR 0.89 0.72 0.75 0.70 GFRNON 63* 81* 77* 84* GFR 72* >90 89* >90 GLU 98 91 -- -- CA 7.6* 7.7* 7.7* 7.9* TP 5.0* 4.9* -- -- ALB 2.6* 2.8* -- -- TBIL 0.2 0.3 -- -- ALKP 34* 34* -- -- AST 8* 7* -- -- ALT 13* 10* -- -- Intake/Output Summary (Last 24 hours) at 10/12/2018 1225 Last data filed at 10/12/2018 1159 Gross per 24 hour Intake 200 ml Output 1600 ml Net -1400 ml RADIOLOGY : REVIEWED MEDICATIONS Scheduled medications ??? amiodarone 200 mg Oral Q3 Days ??? citalopram 40 mg Oral Daily ??? duloxetine 60 mg Oral Daily ??? ferrous sulfate (65 mg elemental) 325 mg Oral TID WC ??? gabapentin 100 mg Oral TID ??? lorazepam 0.5 mg Oral BID ??? pantoprazole 40 mg Intravenous BID ??? piperacillin-tazobactam 3.375 g Intravenous Q8H ??? sucralfate 1 g Oral 4 times per day Infusion PRN Microbiology Results (last 14 days) Procedure Component Value Units Date/Time CULTURE, BACTERIA, BLOOD [[id number]] Collected: 10/10/18 2310 Order Status: Completed Lab Status: Preliminary result Updated: 10/11/182346 Specimen: BLOOD Spec. Description BLOOD Special Requests: NO SPECIAL REQUEST Culture Result: NO GROWTH 1 DAY MRSA SCREENING [[id number]] Collected: 10/10/18 2304 Order Status: Completed Lab Status: Final result Updated: 10/11/18 1135 Specimen: NASAL SPECIMEN SOURCE RESPIRATORY, NOSE MRSA BY PCR METHICILLIN RESISTANT STAPH AUREUS NOT DETECTED OCCULT BLOOD, FECES [[id number]] Order Status: Canceled Lab Status: No result Specimen: STOOL CULTURE URINE [[id number]] Collected: 10/10/18 1805 Order Status: Completed Lab Status: Final result Updated: 10/11/18 2130 Specimen: URINE, CLEAN CATCH Spec. Description URINE CLEAN CATCH Special Requests: NO SPECIAL REQUEST Culture Result: NO GROWTH (< OR = 1,000 CFU/ML) CULTURE, BACTERIA, BLOOD [[id number]] Collected: 10/10/18 0600 Order Status: Completed Lab Status: Preliminary result Updated: 10/11/182346 Specimen: BLOOD Spec. Description BLOOD Special Requests: NO SPECIAL REQUEST Culture Result: NO GROWTH <24 HRS ASSESSMENT /PLAN Juana Klein is a 78-year-old female PROBLEM LIST: . Acute blood loss anemia secondary to GI bleed black stools/melena Status multiple units of PRBC transfusion. Status post EGD showing no evidence of active bleeding. Showed reflux esophagitis and streaky gastritis. Blood seen at the vocal cord CT chest done showed pneumonia. Less likely pulmonary hemorrhage. Some hyperemia of the upper airway. Will ask ENT to evalif needed. Clinically no distress. Continue PPI twice daily. Continue monitor hemoglobin levels. Continue Carafate Will discuss with GI and cardiology when to start Pradaxa. Right-sided pneumonia/bronchitis: Less likely pulmonary hemorrhage. Started antibiotics. Check sputum culture. Pulmonary notified. Upper airway edema seen on the CT, ENT to evaluate. Chronic grade 1 diastolic dysfunction with EF 70% [not in acute exacerbation] WALDO on 10/2018 EF 60-65% with severe Mitral regurgitation; atrial septal aneurysm with PFO with small LEFT to RIGHT shunt Cardiology following, Monitor Vol status and Caraftae CAD Generalized anxiety disorder Migraine headaches ?? Generalized weakness: PT OT evaluation. May need swing bed. DVT prophylaxis with SCDs only. ?? A. fib is rate controlled. Resume amiodarone and metoprolol. Etiology following. Hold pradexa for now. Anxiety: Resume Cymbalta and Lexapro Iron deficiency anemia: Resume iron replacement Neuropathy: Resume gabapentin ?? DVT Prophylaxis: SCD Code Status: Full Code LOURDES FOSTER MD 12:25 PM 10/12/2018 * Samm Graham MD - 10/12/2018 12:12 PM CDT Gastroenterology Progress Note Juana Klein is a 78-year-old female patient. Subjective: No reported bleeding or melena. She has no abdominal pain. Discussed the only focus of blood on EGD was at the vocal cords but she does not report hemoptysis. Past Medical History: Diagnosis Date ??? Anxiety ??? Atrial fibrillation (CMS/HCC) ??? Coronary artery disease ??? Depression ??? GERD (gastroesophageal reflux disease) ??? Migraine ??? Mitral valve disorder Current Facility-Administered Medications Medication Dose Route Frequency Provider Last Rate Last Dose ??? amiodarone (PACERONE) tablet 200 mg 200 mg Oral Q3 Days Lloydyelena Hernandez MD 200 mg at 10/12/18827 ??? citalopram (CELEXA) tablet 40 mg 40 mg Oral Daily Lloyd Hernandez MD 40 mg at 10/12/18827 ??? duloxetine (CYMBALTA) capsule 60 mg 60 mg Oral Daily Lloydyelena Hernandez MD 60 mg at 10/12/18826 ??? ferrous sulfate (65 mg elemental) tablet 325 mg 325 mg Oral TID WC Lloydyelena Hernandez MD 325 mg at 10/12/18827 ??? gabapentin (NEURONTIN) capsule 100 mg 100 mg Oral TID Lloyd Hernandez MD 100 mg at 10/12/18826 ??? lorazepam (ATIVAN) tablet 0.5 mg 0.5 mg Oral BID Lloydyelena Hernandez MD 0.5 mg at 10/12/18826 ??? pantoprazole (PROTONIX) injection 40 mg 40 mg Intravenous BID Lloyd MD David 40 mg at 10/12/18827 ??? piperacillin-tazobactam (ZOSYN) 3.375 g in sodium chloride 0.9 % 50 mL IVPB 3.375 g [id number] Faluz maria Foster MD ??? sucralfate (CARAFATE) 1 GM/10ML suspension 1 g 1 g Oral 4 times per day Samm Graham MD 1 g at 10/12/18701 No Known Allergies Active Problems: Hemorrhagic shock (CMS/HCC) SNOMED CT(R): HEMORRHAGIC SHOCK Review of Systems Constitutional: Negative for chills, fever and weight loss. HENT: Negative for nosebleeds and sore throat. Eyes: Negative for discharge. Respiratory: Negative for cough and shortness of breath. Cardiovascular: Negative for chest pain and palpitations. Genitourinary: Negative for hematuria. Musculoskeletal: Negative for back pain and joint pain. Skin: Negative for rash. Neurological: Negative for dizziness and loss of consciousness. Endo/Heme/Allergies: Does not bruise/bleed easily. Psychiatric/Behavioral: Negative for memory loss. The patient is not nervous/anxious. All other systems reviewed and are negative. Blood pressure 115/50, pulse 76, temperature 97.7 ??F (36.5 ??C), resp. rate 18, height 5' 3 (1.6 m), weight 68.4 kg (150 lb 12.7 oz), SpO2 98 %. Physical Exam Constitutional: Patient is oriented to person, place, and time, appears well- developed and well-nourished. Head: Normocephalic and atraumatic. Mouth/Throat: Oropharynx is clear and moist. Eyes: Conjunctivae are normal. Pupils are equal, round, and reactive to light. No scleral icterus. Cardiovascular: Normal rate, regular rhythm and normal heart sounds. Pulmonary/Chest: Effort normal and breath sounds normal. Abdominal: Soft. Bowel sounds are normal. No distension and no mass. There is no hepatosplenomegaly. There is no tenderness rebound or guarding. Musculoskeletal: no edema. Neurological: Patient is alert and oriented to person, place, and time. Skin: No rash noted. No erythema. Psychiatric: Normal mood and affect. Labs: Recent Labs Lab 10/10/18 1718 10/10/18 2310 10/11/18 0600 10/11/18 1530 10/11/18 2344 10/12/18 0956 WBC 6.3 6.3 7.2 -- -- -- -- RBC 1.51* 1.92* 3.11* -- -- -- -- HGB 4.3* 5.4* 9.1* < > 9.3* 8.8* 10.1* HCT 14.0* 18.0* 27.7* < > 28.6* 27.3* 31.2* MCV 92.7 93.8 89.1 -- -- -- -- MCH 28.5 28.1 29.3 -- -- -- -- MCHC 30.7* 30.0* 32.9* -- -- -- -- PLT 245 245 218 -- -- -- -- RDW 13.9 14.0 15.8* -- -- -- -- MPV 10.2 10.6* 10.9* -- -- -- -- NEUC 4.40 -- -- -- -- -- -- LYMC 1.08 1.27 1.05 -- -- -- -- MONOC 0.64 0.70 0.62 -- -- -- -- EOSC 0.12 0.14 0.15 -- -- -- -- BASOC 0.02 0.03 0.05 -- -- -- -- < > = values in this interval not displayed. Recent Labs Lab 10/10/18 1718 10/10/18 2310 10/11/18 0600 10/12/18 0957 NA 130* 136 135* 135* K 4.1 4.0 4.6 3.9 CL 98 106 107 104 CO2 26.6 24.9 23.1 25.5 AGAP 5.4 5.1 4.9* 5.5 BUN 24 18 16 7 CR 0.89 0.72 0.75 0.70 GFRNON 63* 81* 77* 84* GFR 72* >90 89* >90 GLU 98 91 -- -- CA 7.6* 7.7* 7.7* 7.9* TP 5.0* 4.9* -- -- ALB 2.6* 2.8* -- -- TBIL 0.2 0.3 -- -- ALKP 34* 34* -- -- AST 8* 7* -- -- ALT 13* 10* -- -- Recent Labs Lab 10/10/181717 PTT 51.9* INR 1.1 Radiology: Ct Soft Tissue Neck W Con Result Date: 10/11/2018 INDICATION: Hemoptysis. Blood seen on vocal cords. EXAMINATION: CT examination of the neck was performed after administration of 80 mL intravenous contrast without adverse event with axial and multiplanar reformatted images obtained. A dose lowering technique was used for this procedure, which may include, but is not limited to, dose reduction technique, automated exposure control, the use of iterative reconstruction, and ALARA (As Low As Reasonably Achievable) / Image Gently techniques. COMPARISON: None FINDINGS: Streak artifact from dental amalgam partially obscures assessment. Benign-appearing bony excrescence off of the inferior right mandibular body. Suggestion of mild mucosal edema along the oropharynx, hypopharynx, and supraglottic larynx. No obvious laryngeal mass lesion. Nonspecific asymmetric sclerosis of the left arytenoid cartilage. No destructive changes seen along the laryngeal cartilages. Paraglottic and preepiglottic fat appears unremarkable. Otherwise the remainder ofthe oral cavity, nasopharynx, oropharynx, and hypopharynx appear unremarkable. No suspicious appearing or enlarged lymph nodes by size criteria seen in the neck. Atherosclerotic vascular calcifications and carotid tortuosity. Major salivary glands and thyroid gland unremarkable. No soft tissue collections. Imaged portions of the intracranial compartment reveal small vessel disease, volume loss, and intracranial atherosclerotic calcifications. Prior lens replacements. Mastoid air cells and paranasal sinuses clear. Partly imaged portions of the upper chest reveal bilateral pleural effusions, dependent atelectasis, and patchy ground glass opacities. Atherosclerotic calcification of aorta and me diastinal great vessels. Please refer to separately reported CT of the chest for description of intrathoracic findings. Degenerative changes in the spine. IMPRESSION: 1. Suggestion of mild mucosal edema along the oropharynx, hypopharynx, and supraglotticlarynx. No obvious laryngeal mass. Could correlate with direct visualization. 2. No suspicious appearing or enlarged lymph nodes by size criteria seen in the neck. 3. No soft tissue collections. 4. Bilateral pleural effusions and partially visualized groundglass opacities. Please refer to separately reported CTA of the chest for additional description of pulmonary findings. Interpreted By: Ollie Roper MD, 10/11/2018 4:20 PM Cta Chest Result Date: 10/11/2018 Examination: CTA chest. Clinical Information: Hemoptysis. Comparison: CT 12/16/2016. Technique: IV contrast: 80 mL Isovue 370. Oral contrast: None. Technical comments: CTA of the chest was performed according to the pulmonary embolism protocol. Coronal MIP images were submitted for evaluation. Dose r eduction: This CT exam was performed using one or more of the following dose reduction techniques: Automated exposure control, adjustment of the mA and/or kV according to patient size, and/or use of iterative reconstruction technique. Findings: PULMONARY VASCULATURE The pulmonary arteries are well-opacified and no intraluminal filling defect is identified. The pulmonary arteries are dilated, withthe main pulmonary artery measuring 3.5 cm in diameter. The right pulmonary artery measures approximately 3.3 cm in diameter. The left pulmonary artery measures 2.7 cm in diameter. MEDIASTINUM Support tubes and lines: None. Base of neck/thyroid: Negative. Heart: Mild to moderate cardiomegaly. No signs of right- sided heart strain. No pericardial effusion. The thoracic aorta is normal in caliber. Lymph nodes: No supraclavicular, axillary, internal mammary, mediastinal, or hilar adenopathy. LUNGS AND PLEURA Trace bilateral pleural effusions with atelectasis. Diffuse groundglass opacities are seen within the right upper lobe, which may represent an infectious or inflammatory process or given the history of hemoptysis, hemorrhage. No definite bronchial mucous plugging is seen. UPPER ABDOMEN Unremarkable. BONES/SOFT TISSUES Mild multilevel spondylosis. Impression: 1. No pulmonary embolism identified. 2. The pulmonary arteries are diffusely dilated, compatible with underlying pulmonary arterial hypertension. 3. Right basilar opacities are seen within the right upper lobe, potentially representing an infectious or inflammatory process. Given the history of hemoptysis, findings may represent pulmonary hemorrhage. 4. Trace bilateral pleural effusions with atelectasis. 5. Mild to moderate cardiomegaly. Interpreted By: Shaji Holbrook MD, 10/11/2018 4:39 PM Use Transesophageal Echo Result Date: 10/03/2018 Transesophageal Echocardiography Report Pat.Name: JUANA KLEIN Pat.ID: [id number] St.Date: 10/03/2018 Refer.: [id number], LOGAN WADSWORTH Exam Time: 9:50:00 AM Study Type:TRANSESOPHAGEAL ECHO (WALDO) Height: 157cm Weight: 61kg BSA: 1.61 m2 Age: 11 1940,78Y Sex: FEMALE BP: 110/50 HR: 60 bpm Sonogrphr: Katharina Sky RDCS Pat. Stat.:Outpatient Room: CVD CPT: 06840 [id number] Reason for Study:MR Procedures:2D, 3 Dimensional imaging with full Doppler and color interigation, Doppler, Color Flow, Intraveneous saline contrast was used to help determine presence of intracardiac shunting.,Transesophageal Race: W ++++++++++++++++++++++++++++++++++++ SUMMARY: ++++++++++++++++++++++++++++++ ++++++ -Normal left ventricular cavity size with normal contractility, estimated LVEF 60 to 65%. There is severe basal septal hypertrophy measuring 1.8 cm, and only mild hypertrophy in all other wallsegments. -There is no evidence of dynamic LVOT obstruction at rest, or with the Valsalva maneuver (transthoracic hemodynamics were performed prior to the WALDO). During the WALDO, there was no mitral ALEX, and no outflow gradient. 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 The regurgitation occurs between A2/P2, most pronounced at the medial aspect. There appears to be some thinning of the medial aspect of A2, and the medial aspect of P2, where most of the regurgi tation occurs. I do not see any torn cords, prolapse or flail. The vena contracta area using 3D color Doppler is >1 cm2, which is huge. There are systolic reversals in the pulmonary veins. -Other MV measurements: Posterior leaflet length 8 mm; Mitral valve area (orifice) measures 2.9 cm2. Mitral gradient 2 mmHg at 65 bpm. Septal to leaflet coaptation distance up to 4.6 cm. There is mild annular calcification. -Mild tricuspid regurgitation; sclerotic aortic valve with normal function. -Severeleft atrial enlargement, mild right atrial enlargement -Atrial septal aneurysm with PFO. Small leftto right shunt with color Doppler. No right to left shunting was demonstrated with saline contrast study however she was not able to cooperate with the Valsalva maneuver. I suspect that we would see right to left shunting if she could have done so. Comment: This patient's mitral orifice and annularsize is very small, which is a contraindication to the MitraClip procedure. We could do CT modelingto see if she would be a candidate for an Dawn James TMVR, or an AltaValve, or a Tendyne valve.We will discuss in the Structural Heart group meeting. ++++++++++++++++++++++++++++++++++++ FINDINGS: ++++++++++++++++++++++++++++++++++++ WALDO: The patient was counseled and an informed consent was obtained. The posterior pharynx was anesthetized. The patient was placed in a left lateral recumbent position and a plastic bite was inserted into the mouth. IV sedation was administered. The transesophageal echo probe was inserted into the posterior pharynx and the esophagus was then intubated without difficulty. Multiple views were then obtained from the upper, mid, and lower esophagus and the gastric fundus. The scope was rotated 180 degrees and the aorta was visualized. The scope was withdrawn under continuous suction. The patient tolerated the procedure well without any apparent complications. LV: The left ventricular size is normal. The left ventricular systolic function is normal. Estimated left ventricular ejection fraction is 60- 65%. Mild concentric left ventricular hypertrophy. WM: Wall motion appears normal in all segments. LVOT: The left ventricular outflow tract size is normal. RV: The right ventricle size is normal. The right ventricular function is normal. IVS: Asymmetrichypertrophy of the left ventricular basal septum is noted. LA: The left atrial size is severely enlarged. Left atrial appendage shows no evidence of thrombus. RA: Right atrial size is mildly enlarged. IAS: Atrial septum shows evidence of small patent foramen ovale. JESSICA: No evidence of pericardial effusion. AO: The aorta is atherosclerotic. PA: The peak pulmonary artery systolic pressure is estimated to be approximately 28mmHg + RAP mmHg. AV: The aortic valve is trileaflet. No evidence of aortic valve stenosis. No evidence of aortic valve regurgitation. Mild aortic valve sclerosis. MV: Severe mitral regurgitation with a measures ERO of >1cm^2 by 3D Color. No evidence of mitral stenosis.Mildly calcified anterior and posterior mitral annulus. Myxomatous degeneration of mitral valve. The mean gradient across the mitral valve is 2 at a heart rate of 63. The mitral valve area by 3D planimetry is 2.8cm^2. Spectral Doppler of the pulmonary veins demonstrates systolic flow reversal whichindicates severe mitral regurgitation. Septal to leaflet coaptation distance is 4.6cm. The posterior leaflet measures 8mm. PV: The pulmonic valve is normal There is trace pulmonic regurgitation TV: Mild tricuspid regurgitation. Moderate thickening of tricuspid valve leaflets. No evidence of tricuspid valve stenosis. ++++++++++++++++++++++++++++++++++++ WALDO: ++++++++++++++++++++++++++++++++++++ Pre WALDO BP HR Post WALDO BP HR 110/50 60 Meds: Benzocaine spray was used with 2 sprays., Midazolam/Versed 6 mg IV, Fentanyl 50 mcg IV Complications: None Condition: Good Comments: 49 ++++++++++++++++++++++++++++++++++++ MEASUREMENTS: ++++++++++++++++++++++++++++++++++++ 2D Ventricular Septum IVSd 1.79 cm DOPPLER MV Forward Flow MV mnPG 2 mmHg MV pkPG 4 mmHg LA QLab HM Left Atrium Min 48 ml Left Atrium Max 54 ml/m2 Left Atrium Max 86 ml Left Atrium Eje 44 % LV QLab Patient Height 157 cm Body SurfaceAr 82061 cm2 Patient Weight 36678 g LV QLab HM LVEF 68 % Left Ventricula 172 g SV 64 ml CI 2.66 l/min/m2 Left Ventricula 95 ml Left Ventricle 60 % LV Base to [place] 8.5 cm Left Ventricle 30 % LV Baseto [place] 6.4 cm Left Ventricle 54 % Left Ventricula 30 ml Heart rate 66 bpm Signed 10/03/2018 05:54 PM Logan Wadsworth M.D. Xr Chest Portable Result Date: 10/10/2018 Date: 10/10/2018 5:11 PM Exam: XR CHEST PORTABLE Comparison: Chest radiography dated 01/01/2017. Technique: Single view chest. History: Weakness and shortness of breath. Fatigue. Findings: Since the cardiac silhouette is somewhat enlarged. There is vascular congestion. There are no dense consolidations nor pleural effusions. There are mild and vague opacities in the infrahilar locations possibly atelectasis and/or infiltrates. There is no pneumothorax. There is central bronchial wall thickening. This could indicate bronchitis, peribronchial cuffing or possibly reactive airway disease. The osseous structures are intact. Impression: 1. Cardiomegaly and vascular congestion. 2. Bronchial wall thickening could indicate bronchitis, reactive airway disease and/or peribronchial cuffing. 3. Mild atelectasis or infiltrates in the infrahilar regions. InterpretedBy: Adryan Atwood, 10/10/2018 5:14 PM Assessment /Recommendations: No evidence of GI bleeding but possible pulmonary process may warrant futher work up. Will sign off. SAMM GRAHAM MD 10/12/2018 * Marlenebritton Santos PA-C - 10/12/2018 11:23 AM CDT Images from the original note were not included. Progress Note ID: Juana Klein is a 78-year-old female [facility] with Dr. Richards : 1940 JARRET MARTINEZ MD LOS: 2 days CHIEF COMPLAINT: Follow-up Anemia, SUBJECTIVE: H/H improved No SOB/CP. No BM. She is scared she will get constipated while inpatient. Review of ECG and Tele: SR 75 with artifact on review. No afib observed Review of Systems Constitutional: Denies recent weight gains/losses or fatigue Medications: Scheduled Meds: ??? amiodarone 200 mg Oral Q3 Days ??? citalopram 40 mg Oral Daily ??? duloxetine 60 mg Oral Daily ??? ferrous sulfate (65 mg elemental) 325 mg Oral TID WC ??? gabapentin 100 mg Oral TID ??? lorazepam 0.5 mg Oral BID ??? pantoprazole 40 mg Intravenous BID ??? piperacillin-tazobactam 3.375 g Intravenous Q8H ??? sucralfate 1 g Oral 4 times per day Continuous Infusions: PRN Meds: OBJECTIVE Intake/Output last 3 shifts: I/O last 3 completed shifts: In: 744.7 [P.O.:150; I.V.:594.7] Out: 3600 [Urine:3600] Today's Weight: Last Recorded Weight 10/12/18 0405 Weight: 68.4 kg (150 lb 12.7 oz) Weight change in the last 24 hours: an appropriate measurement is not found Vital signs in the last 24 hours: Temp: [98.1 ??F (36.7 ??C)-99.5 ??F (37.5 ??C)] 98.2 ??F (36.8 ??C) Pulse: [65-85] 83 Resp: [16-30] 18 BP: (103-146)/(46-82) 127/57 Physical Exam GENERAL: Well developed, well nourished, in no apparent distress. RESPIRATORY: No intercostal retractions noted. CV: Regular rate/rhythm. Labs and Cultures: Lab Results Component Value Date NA 135 (L) 10/12/2018 K 3.9 10/12/2018 CL 104 10/12/2018 CO2 25.5 10/12/2018 AGAP 5.5 10/12/2018 BUN 7 10/12/2018 CR 0.70 10/12/2018 GFRNON 84 (L) 10/12/2018 GFR >90 10/12/2018 GLU 91 10/10/2018 CA 7.9 (L) 10/12/2018 Lab Results Component Value Date WBC 7.2 10/11/2018 HGB 10.1 (L) 10/12/2018 PLT 218 10/11/2018 Lab Results Component Value Date TP 4.9 (L) 10/10/2018 ALB 2.8 (L) 10/10/2018 ALT 10 (L) 10/10/2018 TSH 1.880 10/10/2018 ASSESSMENT/PLAN: 1. Anemia 2. Afib 3. MR Continue to monitor H/H. Further discussion regarding catheter based vs surgical procedure for afiband MR. Continue to hold Pradaxa. Patient also wishes for her daughter, Araceli Rapp, to be updated. Signed MARLENE SANTOS PA-C 10/12/2018 11:23 AM Cosigned by Go Richards MD at 10/12/2018 7:12 PM CDT Associated attestation - Go Richards MD - 10/12/2018 7:12 PM CDT I, GO RICHARDS MD, performed an examination of the patient and discussed the management with the Advanced Practice Provider (JOANNA). I reviewed the JOANNA's progress note and agree with the findings and plan of care, except as I have documented. 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 Anxiety ??? Atrial fibrillation (CMS/HCC) ??? Coronary artery disease ??? Depression ??? GERD (gastroesophageal reflux disease) ??? Migraine ??? Mitral valve disorder Past Surgical History: Procedure Laterality Date ??? APPENDECTOMY ??? HYSTERECTOMY ??? TOTAL KNEE ARTHROPLASTY 10/12/18 0902 Therapy Visit Ordering Provider Lloyd Hernandez MD PT Received On 10/12/18 Subjective RN ok'd therapy evaluation. Pt presents supine in bed and is agreeable to therapy evaluation. Pt reports that she has gotten up to the commode yesterday. Reason for admission Pt presents with worsening generalized weakness x2 days. Pt also complains ioflightheadedness with positional changes and was found to be orthostatic in the ED. 10/11 pt was admitted to ICU for management of HGB 4.3 receiving 3 units of PRBC's. EGD showed no evidence of active bleeding, but showed reflux esophagitis and streaky gastritis....PMH: mitral valve disorder, migraine, GERD, depression, CAD, a-fib, anxiety, TKA, appendectomy....Activity: up with assist....Orders: eval and treat. Verified Two Patient Identifiers Yes Patient consents to therapy Yes Time Calculation Start Time 901 Stop Time 928 Time Calculation (min) 27 min Precautions General Precautions Fall Risk Home Living Type of Home House Home Layout One level Home Accessibility 1 Step or platform to enter (2 steps to enter living room area) Bathroom Shower/Tub Walk-in shower Bathroom Toilet Elevated height toilet (ADA height);Sink/counter next to toilet Bathroom Equipment Grab bars in shower;Built-in shower seat Home Equipment Straight cane;2 Wheeled walker;4 Wheeled walker Additional Comments 2 steps down to living area Prior Function Level of [place] Independent with ADLs;Independent with functional transfers;Independent with ambulation;Independent with homemaking with ambulation Device used at baseline None;Straight cane Fall History No Lives With Alone Receives Help From Family Comments Daughter does grocery shopping and pt uses transport services for appointments. Pt states she uses cane outside of home, but inside of home does not uses any AD, but did use furniture as needed. Pain Pain No Activity Tolerance Activity Tolerance Comments Pt limited by weakness and lightheadedness. Cognition Overall Cognitive Status WFL Arousal/Alertness Appropriate responses to stimuli Attention Span Appears intact Memory Appears intact Orientation Level Oriented X4 Following Commands Follows all commands and directions without difficulty Safety Judgment Decreased awareness of need for assistance Awareness of Errors Good awareness of errors made Deficits Decreased awareness of deficits Problem Solving Able to problem solve independently Sensation Light Touch No apparent deficits Overall Extremity Assessment Lower Extremity AROM WFL Lower Extremity Comment Bilateral LE strength 4/5 Bed Mobility Supine to Sit SBA/supervision (with HOB raised) TRANSFERS Sit to Stand Contact guard assist (pt requires attempt x3) Bed to Chair Min assist Other (Comment) Pt is able to complete sit to stand with CGA, but upon standing pt is noted to be quite unsteady with posterior lean noted requiring min assist to correct, pt then transfers to chair with no assistive device requiring min assist throughout for stability. Gait Gait Assistance Contact guard assist Assistive Device 2 Wheeled walker Ambulation Distance (Feet) 70 feet Other (Comment) Pt noted to be quite unsteady with standing and during transfer from bed to chair, due to unsteadiness pt utilizes walker for ambulation. With 2WW pt is noted to be more stable, but fatigues quickly with ambulation bout secondary to weakness. Pt also noted to demonstrate decreased step length and height. Balance Sitting - Static SBA Sitting - Dynamic SBA Standing - Static CGA;Min Assist Standing - Dynamic CGA;Min Assist Other (Comment) Pt is able to stand with CGA with use of 2WW, without use of assistive device pt isquite unsteady and is noted to stand with posterior lean requiring min assist to correct. Patient/Family Training Other (Comment) Pt educated on therapy recommendations. Therapist spoke with nursing staff regarding therapy D/C recommendations and activity recommendations. Also spoke with RN regarding pt likely needing OT evaluation in view of her deficits and recommendation for swing bed unit. Assessment Personal Factors/Comorbidities Impacting Care 3-4 personal factors/comorbidities Examination of Body Systems Moderate (3 or more Elements) Objectives of Body Systems Impaired bed mobility;Impaired transfers;Impaired ambulation;Impaired balance;Impaired stair negotiation;Decreased LE strength;Decreased endurance Clinical Presentation of Patient Evolving and changing characteristics Complexity Level of Evaluation Moderate Prognosis Good PT Assess/Eval Other (Comment) Pt presents with deficits in ambulation, functional transfers, LE strength, acitivty tolerance, and balanace. Pt is able to ambulate 70 feet with use of 2WW and CGA with unsteadiness. Pt also initially stand and transfer from bed to chair with no assistive device requiring min assist due to unsteadiness and weakness with notable posterior lean. Pt reports that she is feeling quite weak and concerned with returning home as she does live alone. PT to recommend swingbed unit at this time. 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 * Lloyd Hernandez MD - 10/11/2018 1:07 PM CDT [facility] Critical Care Medicine 26/10 Pager: [phone] Reason for ICU admission: Hemoglobin of 4.3 Chief Complaint: Generalized weakness HPI: Juana Klein is a 78-year-old female admitted 10/10/2018. Juana Klein is a 78-year-old lady with know past medical history pertinent of chronic anemia and PUD in remote past presents to the outside ED [[facility] with chief compliant of feeling weak.Symptoms started a couple of days ago and have been getting worse over time. Associated symptoms include feeling light headed; she denies syncope. She reports her symptoms are worse with standing/ changing position. She does not report melena but admits her stools are usually dark due to her chronic ingestion of iron supplements. Denies hematochezia or chronic NSAID use. She is on choric anticoagulation with Pradaxa due to her atrial fibrillation. ?? In the ED, she has stable hemodynamics; however, is orthostatic. Hematology panel was notable for aHgb of 4; coag panel unremarkable; chemistry panel notable Na of 130; Troponin I and Lactic acid were unremarkable. PCXR was read by radiology as cardiomegaly and vascular congestion with bronchial wall thickening. ICU Timeline: 10/11: Admitted to ICU for management of hemoglobin of 4.3. Required 3 units of packed RBCs. No overtGI bleeding was noted. Hemodynamically stable. Plans for EGD today. 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 No hemodynamic compromise was appreciated. No active bleeding was noted. GI consulted. EGD done this morning showed no evidence of active bleeding but showed reflux esophagitis and streaky gastritis. if hemoglobin continues to drop or if active bleeding noted, will need colonoscopy. Follow-up on CT chest and CTA neck ordered by GI change Protonix drip to Protonix IV twice daily. Continue Carafate continue to monitor H&H every 8 hourly. Transfuse for hemoglobin less than 7. Continue to hold Pradaxa. If no active bleeding and if hemoglobin stable may consider resuming overnext 1 week. DC Meloxicam. Maintain 2 IV lines. Clear liquid diet and advance as tolerated. DVT prophylaxis with SCDs only. A. fib is rate controlled. Resume amiodarone and metoprolol. Dr Richards informed about admit. Hold pradexa for now. Anxiety: Resume Cymbalta and Lexapro Iron deficiency anemia: Resume iron replacement Neuropathy: Resume gabapentin DVT Prophylaxis: SCD GI Prophylaxis: PPI Diet/Nutrition:clear today and advance as able. Fluids:None Glucose control: Goal blood glucose less than 180. Disposition: [facility] status today. LINES and TUBES: Central line:- Arterial line: - Code Status: FULL Advance Directive: Family Communication: - ATTENDING ATTESTATION: I, Dr. Lloyd Hernandez, have personally examined the patient at the bedside, reviewed all laboratory values, microbiology studies and radiographic images done during this admission. I have reviewed patients pertinent past medical, surgical, personal/social, family history and current/home medication. # Portions of this chart may have been created with voice recognition software. Occasional wrong-word or ???sound-alike?substitutions may have occurred due to the inherent limitations of voice recognition software. Read the chart carefully and recognize, using context, where these substitutionshave occurred. # Part of the above documentation may contains notes/studies/informations copied forward from priornotes, all data reconfirmed and physical examination performed, plans were reconfirmed and new orders entered as needed on the day of this service. Current inpatient medications: Current Facility-Administered Medications: ??? fentaNYL (SUBLIMAZE) injection 100 mcg, 100 mcg, Intravenous, Once, Samm Graham MD ??? midazolam (VERSED) injection 5 mg, 5 mg, Intravenous, Once, Samm Graham MD ??? pantoprazole (PROTONIX) injection 40 mg, 40 mg, Intravenous, BID, Lloyd Hernandez MD ??? sucralfate (CARAFATE) 1 GM/10ML suspension 1 g, 1 g, Oral, 4 times per day, Samm Graham MD Subjective: 24 hour events: As above in ICU timeline. 12 point review if systems was completed and negative except findings reported above in ICU timeline and HPI. Objective: Body mass index is 26.2 kg/m??. Current vital signs Blood pressure 113/51, pulse 66, temperature 98.8 ??F (37.1 ??C), temperature source Tympanic, resp. rate 24, height 5' 3 (1.6 m), weight 67.1 kg (147 lb 14.9 oz), SpO2 97 %. 24 hour BP and temperature range @[id number]@ Temp (24hrs), Av.6 ??F (37 ??C), Min:97.9 ??F (36.6 ??C), Max:99.3 ??F (37.4 ??C) Input/Output 10/10 699 - 10/11 0659 In: 700 Out: 800 [Urine:800] Physical Exam ?? Gen: Alert awake and oriented no distress ?? Neuro: Moving all extremities, no focal deficits ?? Head: Atraumatic and normocephalic ?? Eyes: Pupils equal round and reactive. EOMI ?? ENT: Mucous membranes moist. ?? Neck: NO JVD. NO lymph adenopathy. ?? Cardiac: S1 and S2 with no added sounds ?? Pulm: Bilaterally clear to auscultation, no wheezing and crackles. ?? Abdomen: Soft and nontender, BS+ ?? Skin: No rash or cellulitis ?? Extremities: No lower extremity edema ?? Back: - Data Review: BMP: Recent Labs 10/10/18171710/10/18230910/11/18 0600 BUN 24 18 16 NA 130* 136 135* K 4.1 4.0 4.6 CL 98 106 107 CO2 26.6 24.9 23.1 estimated creatinine clearance is 57.8 mL/min (based on SCr of 0.75 mg/dL). LFTs: Recent Labs 10/10/18171710/10/182309 ALT 13* 10* AST 8* 7* LIPASE -- 69* CBC: Recent Labs 10/10/18171710/10/18230910/11/18 0600 10/11/18 1005 WBC 6.3 6.3 7.2 -- HGB 4.3* 5.4* 9.1* 7.0* HCT 14.0* 18.0* 27.7* 22.8* PLT 245 245 218 -- MCV 92.7 93.8 89.1 -- Coagulation: Recent Labs 10/10/181717 INR 1.1 Recent Labs Lab 10/10/181717 TROP <0.017 ABG: No results found for: BASEEXCESS Central VBG: No components found for: PHMIXEDVEN, MO3NQEHFQO, XCC2TFOMZZ, MSO1FTIRR, ST4LSTF Lactic acid: No components found for: LACTATE Microbiology Results (last 14 days) Procedure Component Value Units Date/Time CULTURE, BACTERIA, BLOOD [[id number]] Collected: 10/10/18 2310 Order Status: Completed Lab Status: In process Updated: 10/10/18 2343 Specimen: BLOOD MRSA SCREENING [[id number]] Collected: 10/10/18 2304 Order Status: Completed Lab Status: Final result Updated: 10/11/18 1135 Specimen: NASAL SPECIMEN SOURCE RESPIRATORY, NOSE MRSA BY PCR METHICILLIN RESISTANT STAPH AUREUS NOT DETECTED OCCULT BLOOD, FECES [[id number]] Order Status: Canceled Lab Status: No result Specimen: STOOL CULTURE URINE [[id number]] Collected: 10/10/18 1805 Order Status: Completed Lab Status: In process Updated: 10/10/18 1817 Specimen: URINE, CLEAN CATCH CULTURE, BACTERIA, BLOOD [[id number]] Collected: 10/10/18 0600 Order Status: Completed Lab Status: In process Updated: 10/11/18 0651 Specimen: BLOOD Radiology: - Lloyd Hernandez MD Pulmonary and Critical Care Medicine [facility] [employer] [place], [place] Pager# [phone] Office# Office: #[phone] * Yris Ramirez RN - 10/11/2018 12:04 PM CDT [facility] NOTE: Referral received from Katherine Mercedes RN, CM. [facility] would be able to accept if the discharging MD would enter orders for HHS, Face to Face for HHS @ the time of discharge. CM/SW would need to notify [facility] of the discharge. * Mago Bear RN - 10/11/2018 11:23 AM CDT 10/11/18 1119 Referral Data Referral Source Self-referral Referral Reason Discharge Planning Source of Information Patient Patient Information OB Patient < 19 yrs old No Primary Caregiver Self Support System Immediate family;Extended family;Friends Baseline ADL's Functional Status Independent Assistive Device Cane;Front wheel walker Living Arrangements Alone Type of Residence Private residence Ambulation Independent Bathing/Grooming Independent Dressing Independent Behavior Oriented Communication Talks;Understands speaking;Understands Macedonian Socioeconomic Needs Caregiver Needed No At Risk of Abuse or Neglect No Adequate Resources Yes Psychological Needs: Mental health concerns No Potential Harm to Self or Others No Suspected Drug or Alcohol Abuse No Inappropriate Patient/Family Behaviors No Difficult Adjustment to Diagnosis No Recent Hospitalization Recent Hospitalization within 30 days No Anticipated Discharge Needs Change in Living Arrangements No In-Home Care or Equipment Yes Vocational and/or Role Loss No Inability to Complete ADL's No Legal Information Legal forms Power of Service Dog Trainer for health care Power of Service Dog Trainer Healthcare Status Activated Discharge Planning Living Arrangements Alone Support Systems Children;Family members Type of Residence Private residence Assistance Needed No Patient expects to be discharged to: Home (with HH - [facility]) S/w pt in room. [facility] is able to afford medicaitons. Does not drive self, but takes [employer] or family transports for medical appts and other needs. Dtr does grocery shopping for pt. Pt otherwise independent with ADLs. Agreeable to if needed. [facility] has had [facility] in past. Dtr to transport on d/c. Referral sent to [facility]. * Karan Hubbard RN - 10/11/2018 7:59 AM CDT Problem: Venous Thromboembolism - Risk of Goal: Absence of venous thromboembolism Outcome: Met This Shift Patient shows no s/s of VTE during this shift. SCDs are on. Will continue to monitor. Problem: Reduced risk for falls/injury Goal: Reduced Risk for Falls/Injury Outcome: Met This Shift Patient did not experience a fall during this shift. Bed alarm is on and yellow socks/wristband on.Room remains free of clutter. Will continue to monitor. documented in this encounter H&P Notes * Festus Banks DO - 10/11/2018 2:00 AM CDT ICU H&P HPI Juana Klein is a 78-year-old lady with know past medical history pertinent of chronic anemia and PUD in remote past presents to the outside ED [[facility]] with chief compliant of feeling weak.Symptoms started a couple of days ago and have been getting worse over time. Associated symptoms include feeling light headed; she denies syncope. She reports her symptoms are worse with standing/ changing position. She does not report melena but admits her stools are usually dark due to her chronic ingestion of iron supplements. Denies hematochezia or chronic NSAID use. She is on choric anticoagulation with Pradaxa due to her atrial fibrillation. In the ED, she has stable hemodynamics; however, is orthostatic. Hematology panel was notable for aHgb of 4; coag panel unremarkable; chemistry panel notable Na of 130; Troponin I and Lactic acid were unremarkable. PCXR was read by radiology as cardiomegaly and vascular congestion with bronchial wall thickening. PAST MEDICAL HISTORY ?? Chronic atrial fibrillation ?? CAD ?? 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 GERD ?? Generalized anxiety disorder ?? Migraine headaches PAST SURGICAL HISTORY ?? Appendectomy ?? Hysterectomy ?? Total knee arthroplasty ?? EGD ?? WALDO with cardioversion SOCIAL HISTORY ?? Never a tobacco smoker ?? No alcoholism or illicit drug use FAMILY HISTORY ?? Paternal -- heart disease ?? Maternal -- renal disease ALLERGIES No Known Allergies MEDICATIONS Amiodarone Pradaxa Cymbalta Esitalopram Ferrous sulfate Gabapentin Ativan Metoprolol succinate Imitrex Meloxicam Omeprazole REVIEW OF SYSTEMS General: negative for - chills, fever, weight gain/loss, or change in appetite ENT: negative for - epistaxis, sore throat or vertigo Respiratory: negative for - cough, shortness of breath, or wheezing Cardiovascular: negative for - chest pain, palpitations. Gastrointestinal: negative for - abdominal pain, blood in stools, change in bowel habits or nausea/vomiting Genitourinary: negative for - dysuria, frequency, urgency, hesitancy, or hematuria Musculoskeletal: negative for - joint pain or muscle pain Neurological: negative for - confusion, syncope, seizures, or headaches Dermatological: negative for - rash or skin lesions VITALS Filed Vitals: 10/10/18 2304 10/11/18 0000 10/11/18 0100 10/11/18 0132 BP: 130/52 146/62 138/57 Pulse: 79 73 73 Resp: 20 20 20 Temp: 98.4 ??F (36.9 ??C) 97.3 ??F (36.3 ??C) TempSrc: Tympanic Tympanic SpO2: 95% 96% 95% 98% Weight: 67.1 kg (147 lb 14.9 oz) Height: 5' 3 (1.6 m) PHYSICAL EXAM General: Afebrile, NAD HEENT: pale conjunctiva, anicteric sclera, EOMI Neck: No JVD; supple neck CV: S1/2 audible, RRR, ?systolic murmur Resp: CTA B/L without wheezes GI: Abd soft, NT, ND, normal bowel sounds Ext: No distal LE edema Integument: Nrml skin turgor Pulses:1+ distal pulses at B/L LE Capillary refill: Nrml refill time Neuro: AOx3 without focal neuro deficits Psych: Appropriate mood and affect LABORATORY DATA Recent Labs Lab 10/10/18171710/10/18 2310 WBC 6.3 6.3 RBC 1.51* 1.92* HGB 4.3* 5.4* HCT 14.0* 18.0* PLT 245 245 Recent Labs Lab 10/10/18 1718 10/10/18 2310 NA 130* 136 K 4.1 4.0 CL 98 106 CO2 26.6 24.9 AGAP 5.4 5.1 BUN 24 18 CR 0.89 0.72 GFRNON 63* 81* GFR 72* >90 GLU 98 91 CA 7.6* 7.7* TP 5.0* 4.9* ALB 2.6* 2.8* TBIL 0.2 0.3 ALKP 34* 34* AST 8* 7* ALT 13* 10* Recent Labs Lab 10/10/18 171 PTT 51.9* INR 1.1 IMAGING PCXR (10/10/18) -- bi-basilar atelectasis, ? 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 Acute GI bleeding ?? Acute blood loss anemia ?? Acute on chronic iron deficiency anemia ?? Paroxymal atrial fibrillation, on Pradaxa ?? Moderate mitral regurgitation ?? 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 CAD ?? Generalized anxiety disorder ?? Migraine headaches PLAN ?? 2 large bore IVs at all times ?? IVF ?? PPI infusion ?? Transfuse PRBC as needed for Hgb < 8 given her h/o CAD ?? GI to see ?? Hold Pradaxa, re-start Amiodarone ?? Nutrition: NPO except medications ?? DVT prophylaxis: SCDs + no pharmacologic AC given active bleeding ?? Code status: FULL 35 min critical care time Festus Banks DO Internal Medicine Critical Care Medicine 10/11/2018 2:27 AM documented in this encounter Procedure Notes * Samm Graham MD - 10/11/2018 12:17 PM CDT EGD WITH BIOPSY Procedure Note Juana Klein 10/10/2018 - 10/11/2018 Surgeon(s): Samm Graham MD Alligator Shear Operator: GI Nurse: Cher Davis RN Pre-Op Diagnosis: Anemia with a H/O ulcers Post-Op Diagnosis: 1. Unexplained blood at the vocal cords 2. Reflux esophagitis 3. Streaky gastritis 4. No ulcers seen 5. Bilroth I anatomy with antrectomy 6. Duodenum seen with papilla 7. No blood in GI tract. Procedure(s): EGD WITH BIOPSY Medications Versed - 5 mg Fentanyl 75 mcg Consent : The indications, risks, possible complications, and alternatives of esophagogastroduodenoscopy and possible push enteroscopy, with possible biopsies, polypectomy, cautery, clipping, injection therapy, rubber band ligation, as well as possible esophageal dilation were explained to the patient. The risks include but are not limited to: bleeding, perforation, infection, drug reaction, phlebitis, pneumonia, missed lesions, delayed bleeding, and the remote risk of catastrophic events, cardiovascular/pulmonary collapse, stroke and were explained to the patient. The patient states that they understand and agree to proceed. Procedure Description: After informed consent was obtained, the patient was brought to the endoscopy unit. The patient was placed on oximetry and cardiac monitors, as well as supplemental oxygen. A time out was performed to confirm the correct patient and procedure, as well as allergies and risk factors. The patient was then slowly and adequately sedated. With a bite block in place, the upper endoscope was lubricated with endoscopy lubricant, and sprayed with benzocaine. Under direct visualization the upper endoscope was advanced into the esophagus. There was blood noted at the vocal cords but none in the esophagus. The esophagus was visualized in its entirely. The gastroesophageal junctionwas mildly erythematous . The squamocolumnar junction had an irregular Z line. The scope was then advanced in to the stomach. The stomach was examined in its entirety, including the cardia, fundus, with post surgical changes seen and antrectomy. The gastric mucosa had a streaky erythematous appearance.The anastomosis was easily intubated. The distal duodenum and ampulla had a normal appearance. The scope was brought back into the stomach and retroflexion was performed. Biopsies taken of Duodenum, Stomach, and GE Jxn and distal esophagus. The stomach was decompressed on removal of the scope. The scope was completely withdrawn. The patient tolerated the procedure very well. Complications: None Estimated Blood Loss: Minimal Specimens: ID Type Source Tests Collected by Time Destination A : duodenal bxs TISSUE GASTRIC BIOPSY PATHOLOGY Samm Graham MD 10/11/2018 1214 B : gastric bx's TISSUE GASTRIC BIOPSY PATHOLOGY Samm Graham MD 10/11/2018 1214 C : distal esophagus bx,s TISSUE GASTRIC BIOPSY PATHOLOGY Samm Graham MD 10/11/2018 1215 Finding/Impression: Bilroth I anatomy with no signs of bleeding except at the vocal cords. Plan/Recommendations Check Bx CT scan of chest and neck She had a colonoscopy in 2016 so doubt that would be helpful unless there is overt bleeding. SAMM GRAHAM MD Date: 10/11/2018 Time: 12:17 PM documented in this encounter Consult Notes * Daksha Clement MD - 10/12/2018 1:34 PM CDTAssociated Order(s): IP CONSULT TO PULMONOLOGY [facility] Pulmonology CONSULT NOTE Attending Provider: Lourdes Foster MD PCP: JARRET MARTINEZ MD Reason for Admission: Hemorrhagic shock (CMS/HCC) Reason for Consult: Community acquired pneumonia and to rule out pulmonary hemorrhage HPI Ms. Klein, a 78-year-old old lady with a past medical history of chronic iron deficiency anemia oniron supplements, A. fib on Pradaxa, GERD, prior history of ulcerative disease who was transferred from [facility] ED to [facility] for found anemia (hemoglobin 4.3) and orthostatics. Patient was transfused with 3 units and subsequent GI endoscopic evaluation revealed blood on the vocal cords and CTA chest showed diffuse groundglass opacities in the right upper lung. [facility] Pulmonology wasconsulted for evaluation of CAP and possible pulmonary hemorrhage. Patient states over the past several weeks she had had been feeling progressively weak, tired and fatigued. States she has a history of chronic iron deficiency anemia and she takes iron supplementations for this. She had noticed darkening stool but denies any hematuria, hematemesis, hemoptysis, hematochezia, melena or any other signs of bleeding. Her only other additional symptom was a dry, infrequently productive cough with intermittent expiratory wheezing. She denied any fevers, chills, nightsweats, weight changes or weight loss and does not have a smoking history. She presented to the [facility] emergency department, hemoglobin was at 4.3 which point she was transfused with 3 units of blood and transferred to [facility] for further management. Here hemoglobinis stayed stable and GI was consulted for evaluation of possible upper GI bleed. Endoscopy performed was unrevealing and showed signs for blood on the vocal cords at which point is a pulmonology was consulted. CTA chest shows groundglass opacities in the right upper lobe which are likely consistentwith CAP patient was started on antibiotics. Review of Systems Constitutional: Positive for malaise/fatigue. Negative for chills, fever and weight loss. HENT: Positive for congestion. Negative for ear discharge, ear pain and sore throat. Eyes: Negative for blurred vision, double vision and photophobia. Respiratory: Positive for cough. Negative for hemoptysis, sputum production, shortness of breath, wheezing and stridor. Cardiovascular: Negative for chest pain, palpitations, claudication and leg swelling. Gastrointestinal: Positive for vomiting. Negative for abdominal pain, constipation, diarrhea and heartburn. Skin: Negative for rash. Neurological: Positive for weakness. Negative for dizziness, tremors and headaches. Medications: ??? amiodarone 200 mg Oral Q3 Days ??? citalopram 40 mg Oral Daily ??? duloxetine 60 mg Oral Daily ??? ferrous sulfate (65 mg elemental) 325 mg Oral TID WC ??? gabapentin 100 mg Oral TID ??? lorazepam 0.5 mg Oral BID ??? pantoprazole 40 mg Intravenous BID ??? piperacillin-tazobactam 3.375 g Intravenous Q8H ??? sucralfate 1 g Oral 4 times per day PRN: No current facility-administered medications on file prior to encounter. Current Outpatient Medications on File Prior to Encounter Medication Sig ??? calcium carb-cholecalciferol (CALTRATE 600+D) 600-800 MG-UNIT tablet Take by mouth daily. ??? dabigatran (PRADAXA) 150 MG Cap Take 1 capsule (150 mg total) by mouth 2 (two) times daily. ??? duloxetine (CYMBALTA) 60 MG capsule Take 60 mg by mouth daily. ??? escitalopram 20 MG tablet Take 40 mg by mouth daily. ??? ferrous sulfate, 65 mg elemental, 325 (65 FE) MG tablet Take by mouth 2 (two) times daily. ??? gabapentin 100 MG capsule Take by mouth 3 (three) times daily. ??? lansoprazole (PREVACID) 30 MG capsule Take 1 tablet by mouth 2 (two) times daily. ??? lorazepam (ATIVAN) 0.5 MG tablet Take by mouth 2 (two) times daily. ??? meloxicam 15 MG tablet Take 15 mg by mouth daily. ??? metoprolol succinate 50 MG 24 hr tablet Take 0.5 tablets (25 mg total) by mouth daily. ??? omeprazole 20 MG capsule Take 20 mg by mouth 2 (two) times a day. ??? potassium chloride 20 MEQ packet Take by mouth daily. ??? SUMAtriptan (IMITREX) 50 MG tablet Take 50 mg by mouth daily as needed for Migraine. ??? amiodarone 200 MG tablet TAKE EVERY THIRD DAY No Known Allergies Past Medical History: Diagnosis Date ??? Anxiety ??? Atrial fibrillation (CMS/HCC) ??? Coronary artery disease ??? Depression ??? GERD (gastroesophageal reflux disease) ??? Migraine ??? Mitral valve disorder Social History Tobacco Use ??? Smoking status: Never Smoker ??? Smokeless tobacco: Never Used Substance Use Topics ??? Alcohol use: No Frequency: Never Past Surgical History: Procedure Laterality Date ??? APPENDECTOMY ??? HYSTERECTOMY ??? TOTAL KNEE ARTHROPLASTY Family History Problem Relation Name Age of Onset ??? Kidney Disease Mother ??? Heart Disease Father OBJECTIVE Vitals: Filed Vitals: 10/11/18 2335 10/12/18 0405 10/12/18 0756 10/12/18 1136 BP: 114/63 126/65 127/57 115/50 Pulse: 79 79 83 76 Resp: 24 18 16 Temp: 98.5 ??F (36.9 ??C) 98.1 ??F (36.7 ??C) 98.2 ??F (36.8 ??C) 97.7 ??F (36.5 ??C) TempSrc: Oral Oral Oral Oral SpO2: 95% 93% 92% 98% Weight: 68.4 kg (150 lb 12.7 oz) Height: Physical Exam Intake/Output Summary (Last 24 hours) at 10/12/2018 1334 Last data filed at 10/12/2018 1159 Gross per 24 hour Intake 200 ml Output 1600 ml Net -1400 ml Labs: Recent Labs Lab 10/10/18 1718 10/10/18 2310 10/11/18 0600 10/11/18 1530 10/11/18 2344 10/12/18 0956 WBC 6.3 6.3 7.2 -- -- -- -- RBC 1.51* 1.92* 3.11* -- -- -- -- HGB 4.3* 5.4* 9.1* < > 9.3* 8.8* 10.1* HCT 14.0* 18.0* 27.7* < > 28.6* 27.3* 31.2* MCV 92.7 93.8 89.1 -- -- -- -- MCH 28.5 28.1 29.3 -- -- -- -- MCHC 30.7* 30.0* 32.9* -- -- -- -- PLT 245 245 218 -- -- -- -- RDW 13.9 14.0 15.8* -- -- -- -- NEUC 4.40 -- -- -- -- -- -- LYMC 1.08 1.27 1.05 -- -- -- -- MONOC 0.64 0.70 0.62 -- -- -- -- EOSC 0.12 0.14 0.15 -- -- -- -- BASOC 0.02 0.03 0.05 -- -- -- -- < > = values in this interval not displayed. Recent Labs Lab 10/10/18 1718 10/10/18 2310 10/11/18 0600 10/12/18 0957 NA 130* 136 135* 135* K 4.1 4.0 4.6 3.9 CL 98 106 107 104 CO2 26.6 24.9 23.1 25.5 BUN 24 18 16 7 CR 0.89 0.72 0.75 0.70 GFRNON 63* 81* 77* 84* GFR 72* >90 89* >90 GLU 98 91 -- -- CA 7.6* 7.7* 7.7* 7.9* TP 5.0* 4.9* -- -- ALB 2.6* 2.8* -- -- TBIL 0.2 0.3 -- -- ALKP 34* 34* -- -- AST 8* 7* -- -- ALT 13* 10* -- -- MAGNESIUM 1.9 2.2 -- -- Recent Imaging: Radiology Results (Last 48 hours) 10/11/18 1606 CTA CHEST Final result Impression: Impression: 1. No pulmonary embolism identified. 2. The pulmonary arteries are diffusely dilated, compatible with underlying pulmonary arterial hypertension. 3. Right basilar opacities are seen within the right upper lobe, potentially representing an infectious or inflammatory process. Given the history of hemoptysis, findings may represent pulmonary hemorrhage. 4. Trace bilateral pleural effusions with atelectasis. 5. Mild to moderate cardiomegaly. Interpreted By: Shaji Holbrook MD, 10/11/2018 4:39 PM 10/11/[address] SOFT TISSUE NECK W CON Final result Impression: IMPRESSION: 1. Suggestion of mild mucosal edema along the oropharynx, hypopharynx, and supraglottic larynx. No obvious laryngeal mass. Could correlate with direct visualization. 2. No suspicious appearing or enlarged lymph nodes by size criteria seen in the neck. 3. No soft tissue collections. 4. Bilateral pleural effusions and partially visualized groundglass opacities. Please refer to separately reported CTA of the chest for additional description of pulmonary findings. Interpreted By: Ollie Roper MD, 10/11/2018 4:20 PM 10/10/18 1711 XR CHEST PORTABLE Final result Impression: Impression: 1. Cardiomegaly and vascular congestion. 2. Bronchial wall thickening could indicate bronchitis, reactive airway disease and/or peribronchial cuffing. 3. Mild atelectasis or infiltrates in the infrahilar regions. Interpreted By: Adryan Atwood, 10/10/2018 5:14 PM ASSESSMENT/PLAN Ms. Klein, a 78-year-old old lady with a past medical history of chronic iron deficiency anemia oniron supplements, A. fib on Pradaxa, GERD, prior history of ulcerative disease who was transferred from [facility] to [facility] for found anemia (hemoglobin 4.3) and orthostatics. Patient was transfused with 3 units and subsequent GI endoscopic evaluation revealed blood on the vocal cords and CTA chest showed diffuse groundglass opacities in the right upper lung. [facility] wasconsulted for evaluation of CAP and possible pulmonary hemorrhage. # Community-acquired pneumonia # Acute on chronic anemia of unknown source - Subjectively; several week history of progressive malaise and weakness, anemia without signs of bleed, no history of pulmonary disease, symptoms of cough with intermittent sputum production and wheezing - Objectively; afebrile, SpO2 91-100% on room air, hemodynamically stable - Transfused 3 units PRBC, hemodynamically stable with stable hemoglobin after the fact Pertinent images: - CTA chest, 10/11; trace bilateral pleural effusions with atelectasis, diffuse groundglass opacitiesin the right upper lobe - CTA neck, 10/11; mild mucosal edema of the oropharynx, hypopharynx and supraglottic larynx no obvious laryngeal mass Assessment: - Considering patient's clinical features of to 3-week history of cough, with intermittent sputum production and expiratory wheezing and significant ground glass opacity in the right upper lobe, patient is likely suffering from required pneumonia and is appropriately treated with antibiotics. Patient denies any signs or symptoms of hemoptysis and it is unlikely to be the cause of her significant hemoglobin drop. Considering patient is on anticoagulation therapy, recently underwent endoscopic evaluation and has community acquired pneumonia, visualization of vocal cords is likely multifactorial. At this time, it is appropriate to treat with antibiotics for CAP and continue to evaluate patient closely Plan: - Continue Zosyn 3.375 g Q8H; patient continues to have an improved clinical response over the next24 hours, can transition to levofloxacin 750 mg daily for a total 5 to 7 day course - Anemia and likely secondary to pulmonary hemorrhage and will require further evaluation per primary team Thank you for consulting [facility] Pulmonology. The patient was discussed with and seen by Dr. Bal on rounds. We will continue to follow. DAKSHA CLEMENT MD 10/12/2018 Cosigned by Nina Bal MD at 10/12/2018 3:10 PM CDT Associated attestation - Nina Bal MD - 10/12/2018 3:10 PM CDT Teaching Physician - I, NINA BAL MD, performed a History and Physical examination of the patientand discussed the management with the resident. I reviewed the Resident's note and agree with the findings and plan of care, except as I have documented. Severe anemia. No hx of hemoptysis. Black stool however she has been using iron supplement. CT chest RUL density. Could represent PNA. I doubt that this significant decline in her HGB is secondary to pulm hemorrhage without clear hemoptysis and hypoxemia. Would recommend abx for possible PNA for now. Observe over next few days if she develop hemoptysis.Cont work up per GI for possible Gi source of bleeding. Will cont to follow * Deon Dailey MD - 10/12/2018 1:16 PM CDT Otolaryngology Consult Note Dr. Cerna Attending Provider: Lourdes Foster MD PCP: JARRET MARTINEZ MD Reason for consult: R/o upper aerodigestive tract bleeding Assessment/Plan: 78-year-old female with a history of a fib on pradaxa admitted for significant bleeding of unknown origin. ENT consulted to rule out upper airway bleeding as EGD yesterday noted a small amount of blood at the vocal cords. Flexible scope exam today demonstrated normal nasal, nasopharyngeal, oropharyngeal, hypopharyngeal, and glottic anatomy, without masses, lesions, excoriations, or active bleeding. CT STN reviewed from this admission and demonstrates no masses, lesions, or airway narrowing. - No indication for further ENT intervention - Bleeding significant enough to cause a hemoglobin drop to 4.3 would be exceedingly unlikely to befrom an upper airway source without symptoms of cough, hemoptysis, or oral/nasal bleeding. - Consider further workup for bleeding (e.g., pulmonary, lower GI) sources as indicated - Rest of care per primary - Please page ENT with other new upper airway concerns Staff: Nehemiah Dailey [id number] HPI: Juana Klein is an 78-year-old female With a history of a fib on Pradaxa admitted on 10/10/18 for severe weakness and lightheadedness and was found to have a hemoglobin of 4.3. She received 3 units of blood and further GI workup with an EGD. This showed reflux esophagitis but no bleeding or ulcerations. Blood was noted at the vocal cords at the end of the procedure, so ENT was consulted for further upper airway evaluation. She reports no cough, oral/nasal bleeding, or hemoptysis. She denies dyspnea, weight loss, hoarseness, otalgia, dysphagia, odynophagia, or lumps or bumps in her neck. ROS A 10 point review of systems was performed and is otherwise negative except as noted in HPI HISTORIES Past Medical History: Diagnosis Date ??? Anxiety ??? Atrial fibrillation (CMS/HCC) ??? Coronary artery disease ??? Depression ??? GERD (gastroesophageal reflux disease) ??? Migraine ??? Mitral valve disorder Social History Tobacco Use ??? Smoking status: Never Smoker ??? Smokeless tobacco: Never Used Substance Use Topics ??? Alcohol use: No Frequency: Never Past Surgical History: Procedure Laterality Date ??? APPENDECTOMY ??? HYSTERECTOMY ??? TOTAL KNEE ARTHROPLASTY Family History Problem Relation Name Age of Onset ??? Kidney Disease Mother ??? Heart Disease Father No current facility-administered medications on file prior to encounter. Current Outpatient Medications on File Prior to Encounter Medication Sig ??? calcium carb-cholecalciferol (CALTRATE 600+D) 600-800 MG-UNIT tablet Take by mouth daily. ??? dabigatran (PRADAXA) 150 MG Cap Take 1 capsule (150 mg total) by mouth 2 (two) times daily. ??? duloxetine (CYMBALTA) 60 MG capsule Take 60 mg by mouth daily. ??? escitalopram 20 MG tablet Take 40 mg by mouth daily. ??? ferrous sulfate, 65 mg elemental, 325 (65 FE) MG tablet Take by mouth 2 (two) times daily. ??? gabapentin 100 MG capsule Take by mouth 3 (three) times daily. ??? lansoprazole (PREVACID) 30 MG capsule Take 1 tablet by mouth 2 (two) times daily. ??? lorazepam (ATIVAN) 0.5 MG tablet Take by mouth 2 (two) times daily. ??? meloxicam 15 MG tablet Take 15 mg by mouth daily. ??? metoprolol succinate 50 MG 24 hr tablet Take 0.5 tablets (25 mg total) by mouth daily. ??? omeprazole 20 MG capsule Take 20 mg by mouth 2 (two) times a day. ??? potassium chloride 20 MEQ packet Take by mouth daily. ??? SUMAtriptan (IMITREX) 50 MG tablet Take 50 mg by mouth daily as needed for Migraine. ??? amiodarone 200 MG tablet TAKE EVERY THIRD DAY Allergies: No Known Allergies EXAM Blood pressure 115/50, pulse 76, temperature 97.7 ??F (36.5 ??C), resp. rate 18, height 5' 3 (1.6 m), weight 68.4 kg (150 lb 12.7 oz), SpO2 98 %. GENERAL: Well developed in no acute distress. HEAD: Normocephalic, atraumatic. Face is symmetric. EYES: Extra-ocular muscles are intact. Sclera and conjunctivae appear healthy. NOSE: Dorsum is straight, septum is midline, inferior turbinates are not hypertrophied. No purulence is seen. Mucosa is pink, moist, and nonedematous. EARS: Pinnae and periauricular areas are normal. ORAL CAVITY: Lips, gums, and teeth appear healthy. Tongue protrudes midline, is without lesions, and mobile in both directions. Pharynx is not inflamed. Tonsils are not hypertrophied. NECK: Normal ROM. No lymphadenopathy. No thyromegaly. GASTROINTESTINAL: The upper gastrointestinal tract was examined. Uvula is midline and there are no oropharyngeal lesions noted. RESPIRATORY: No gross stridor, wheezing, or respiratory distress. SKIN: The skin of the face and neck is normal in appearance and without concerning lesion. MUSCULOSKELETAL: Facial bones, facial muscles, and cervical muscles are grossly normal. NEUROLOGICAL: Cranial nerves II-XII are grossly intact. PSYCHIATRIC: The patient is alert and oriented with normal mood. PROCEDURE: Endoscopy Note: Type of Endoscopy: Flexible fiberoptic laryngoscopy Indication: Bleeding of unknown origin Procedure: Informed consent obtained verbally. The nose was anesthetized with topical oxymetazolineand 4% lidocaine solution. After decongestion and topical anesthesia was obtained, the flexible fiberoptic endoscope was then placed into the patient's nose and advanced to visualize the nasopharynx oropharynx, hypopharynx and larynx. The endoscope was removed at the conclusion of the exam. Findings are listed below: Nasal cavity: Normal mucosa and turbinates. No polyps or lesions. Nasopharynx: Clear BOT: no masses. no lesions. no irregularities Epiglottis: thin and crisp, no lesions, no masses AE Folds: no lesions, no masses Pyriforms: no masses no lesion, no pooling Postcricoid: no edema, no lesion False vocal fold: no masses no lesions, True vocal folds: No masses or lesions. Normal adduction and abduction on phonation. Good glottic closure. No pachydermia, cobblestoning, or other signs consistent with LPR. LABS: BMP Recent Labs Lab 10/10/18171710/10/18 2310 10/11/18 0610/12/18 0957 NA 130* 136 135* 135* K 4.1 4.0 4.6 3.9 CL 98 106 107 104 CO2 26.6 24.9 23.1 25.5 AGAP 5.4 5.1 4.9* 5.5 BUN 24 18 16 7 CR 0.89 0.72 0.75 0.70 GFRNON 63* 81* 77* 84* GFR 72* >90 89* >90 GLU 98 91 -- -- CA 7.6* 7.7* 7.7* 7.9* CBC Recent Labs Lab 10/10/18171710/11/18 0610/12/18 0956 WBC 6.3 < > 7.2 -- -- RBC 1.51* < > 3.11* -- -- HGB 4.3* < > 9.1* < > 10.1* HCT 14.0* < > 27.7* < > 31.2* MCV 92.7 < > 89.1 -- -- MCH 28.5 < > 29.3 -- -- MCHC 30.7* < > 32.9* -- -- PLT 245 < > 218 -- -- RDW 13.9 < > 15.8* -- -- MPV 10.2 < > 10.9* -- -- NEUC 4.40 -- -- -- -- LYMC 1.08 < > 1.05 -- -- MONOC 0.64 < > 0.62 -- -- EOSC 0.12 < > 0.15 -- -- BASOC 0.02 < > 0.05 -- -- < > = values in this interval not displayed. IMAGING: Results for orders placed or performed during the hospital encounter of 10/10/18 CTA CHEST Narrative Examination: CTA chest. Clinical Information: Hemoptysis. Comparison: CT 12/16/2016. Technique: IV contrast: 80 mL Isovue 370. Oral contrast: None. Technical comments: CTA of the chest was performed according to the pulmonary embolism protocol. Coronal MIP images were submitted for evaluation. Dose reduction: This CT exam was performed using one or more of the following dose reduction techniques: Automated exposure control, adjustment of the mA and/or kV according to patient size, and/or use of iterative reconstruction technique. Findings: PULMONARY VASCULATURE The pulmonary arteries are well-opacified and no intraluminal filling defect is identified. The pulmonary arteries are dilated, with the main pulmonary artery measuring 3.5 cm in diameter. The right pulmonary artery measures approximately 3.3 cm in diameter. The left pulmonary artery measures 2.7 cm in diameter. MEDIASTINUM Support tubes and lines: None. Base of neck/thyroid: Negative. Heart: Mild to moderate cardiomegaly. No signs of right-sided heart strain. No pericardial effusion. The thoracic aorta is normal in caliber. Lymph nodes: No supraclavicular, axillary, internal mammary, mediastinal, or hilar adenopathy. LUNGS AND PLEURA Trace bilateral pleural effusions with atelectasis. Diffuse groundglass opacities are seen within the right upper lobe, which may represent an infectious or inflammatory process or given the history of hemoptysis, hemorrhage. No definite bronchial mucous plugging is seen. UPPER ABDOMEN Unremarkable. BONES/SOFT TISSUES Mild multilevel spondylosis. Impression Impression: 1. No pulmonary embolism identified. 2. The pulmonary arteries are diffusely dilated, compatible with underlying pulmonary arterial hypertension. 3. Right basilar opacities are seen within the right upper lobe, potentially representing an infectious or inflammatory process. Given the history of hemoptysis, findings may represent pulmonary hemorrhage. 4. Trace bilateral pleural effusions with atelectasis. 5. Mild to moderate cardiomegaly. Interpreted By: Shaji Holbrook MD, 10/11/2018 4:[address] SOFT TISSUE NECK W CON Narrative INDICATION: Hemoptysis. Blood seen on vocal cords. EXAMINATION: CT examination of the neck was performed after administration of 80 mL intravenous contrast without adverse event with axial and multiplanar reformatted images obtained. A dose lowering technique was used for this procedure, which may include, but is not limited to, dose reduction technique, automated exposure control, the use of iterative reconstruction, and ALARA (As Low As Reasonably Achievable) / Image Gently techniques. COMPARISON: None FINDINGS: Streak artifact from dental amalgam partially obscures assessment. Benign-appearing bony excrescence off of the inferior right mandibular body. Suggestion of mild mucosal edema along the oropharynx, hypopharynx, and supraglottic larynx. No obvious laryngeal mass lesion. Nonspecific asymmetric sclerosis of the left arytenoid cartilage. No destructive changes seen along the laryngeal cartilages. Paraglottic and preepiglottic fat appears unremarkable. Otherwise the remainder of the oral cavity, nasopharynx, oropharynx, and hypopharynx appear unremarkable. No suspicious appearing or enlarged lymph nodes by size criteria seen in the neck. Atherosclerotic vascular calcifications and carotid tortuosity. Major salivary glands and thyroid gland unremarkable. No soft tissue collections. Imaged portions of the intracranial compartment reveal small vessel disease, volume loss, and intracranial atherosclerotic calcifications. Prior lens replacements. Mastoid air cells and paranasal sinuses clear. Partly imaged portions of the upper chest reveal bilateral pleural effusions, dependent atelectasis, and patchy ground glass opacities. Atherosclerotic calcification of aorta and mediastinal great vessels. Please refer to separately reported CT of the chest for description of intrathoracic findings. Degenerative changes in the spine. Impression IMPRESSION: 1. Suggestion of mild mucosal edema along the oropharynx, hypopharynx, and supraglottic larynx. No obvious laryngeal mass. Could correlate with direct visualization. 2. No suspicious appearing or enlarged lymph nodes by size criteria seen in the neck. 3. No soft tissue collections. 4. Bilateral pleural effusions and partially visualized groundglass opacities. Please refer to separately reported CTA of the chest for additional description of pulmonary findings. Interpreted By: Ollie Roper MD, 10/11/2018 4:20 PM Cosigned by Martina Cerna MD at 10/13/2018 1:37 PM CDT * Marlene Santos PA-C - 10/11/2018 2:28 PM CDTAssociated Order(s): IP CONSULT TO CARDIOLOGY Images from the original note were not included. Consult Note [facility] with Dr. Richards [employer] Principal: Dr. Richards CC: Atrial fib, anticoag recs with admission reason of weakness and anemia, Hgb 4.3 HPI: Mrs. Klein is a 78-year-old female with past medical history of atrial fibrillation with ablation in the past with report of aborted ablation (per patient's report), paroxysmal atrial fibrillation (currently sinus rhythm and has been historically), with rate control of amiodarone 3 times weekly and anticoagulated with Pradaxa 150 mg p.o. twice daily for many years, remote history of partial gastrectomy. She is a fairly poor historian and cannot recall dates on most procedures or interventions.She states that she has had shoulder arthritis and has been on meloxicam in the past year but stopped months ago. Home medications include amiodarone 200 mg p.o. daily, Fiorinal, buspirone, Caltrate, Pradaxa 150 mg p.o. twice daily, duloxetine, escitalopram, ferrous sulfate, gabapentin, [place], lansoprazole, Lidoderm, lorazepam, omeprazole, potassium chloride 20 mEq p.o. daily, sumatriptan, tramadol, venlafaxine She was interviewed and examined in ICU B bed 6. She states that she has been feeling progressivelyweak over the past 10 days. She states that 2 days before her admission she was so weak that she started using a walker that she has had for many years that was in storage. She was weak overall, no unilateral weakness. She denies any chest pain but has been having dyspnea on exertion. She also notes lower extremity edema. WALDO 10/03/2018 -Normal left ventricular cavity size with normal contractility, estimated LVEF 60 to 65%. There is severe basal septal hypertrophy measuring 1.8 cm, and only mild hypertrophy in all other wall segments. -There is no evidence of dynamic LVOT obstruction at rest, or with the Valsalva maneuver (transthoracic hemodynamics were performed prior to the WALDO). During the WALDO, there was no mitral ALEX, and no outflow gradient. 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 The regurgitation occurs between A2/P2, most pronounced at the medial aspect. There appears to be some thinning of the medial aspect of A2, and the medial aspect of P2, where most of the regurgitation occurs. I do not see any torn cords, prolapse or flail. The vena contracta area using 3D color Doppler is >1 cm2, which is huge. There are systolic reversals in the pulmonary veins. -Other MV measurements: Posterior leaflet length 8 mm; Mitral valve area (orifice) measures 2.9 cm2. Mitral gradient 2 mmHg at 65 bpm. Septal to leaflet coaptation distance up to 4.6 cm. There is mild annular calcification. -Mild tricuspid regurgitation; sclerotic aortic valve with normal function. -Severe left atrial enlargement, mild right atrial enlargement -Atrial septal aneurysm with PFO. Small left to right shunt with color Doppler. No right to left shunting was demonstrated with saline contrast study however she was not able to cooperate with the Valsalva maneuver. I suspect that we would see right to left shunting if she could have done so. Last echocardiogram 04/27/16 The left ventricular size is normal. The left ventricular systolic function is normal. The calculated ejection fraction is 70%. Mild to moderate concentric left ventricular hypertrophy. Left ventricular diastolic function is abnormal (grade 1 - impaired relaxation). Wall motion appears normal in all segments. Mild calcification of aortic valve leaflets. Mild mitral regurgitation. Last stress test 09/20/08 1. LV ejection fraction is estimated to be 60 to 65%.2. Negative stress echo for ischemia. [facility] consultation was requested by GI/ICU service for recommendations on anticoagulation for atrial fib with new findings of anemia. Past Medical History: Diagnosis Date ??? Anxiety [...] Topics ??? Alcohol use: No Frequency: Never Family History Problem Relation Name Age of Onset ??? Kidney Disease Mother ??? Heart Disease Father No Known Allergies Medications Prior to Admission Medication Sig Dispense Refill ??? calcium carb-cholecalciferol (CALTRATE 600+D) 600-800 MG-UNIT tablet Take by mouth daily. ??? dabigatran (PRADAXA) 150 MG Cap Take 1 capsule (150 mg total) by mouth 2 (two) times daily. 60 capsule 3 ??? duloxetine (CYMBALTA) 60 MG capsule Take 60 mg by mouth daily. ??? escitalopram 20 MG tablet Take 40 mg by mouth daily. ??? ferrous sulfate, 65 mg elemental, 325 (65 FE) MG tablet Take by mouth 2 (two) times daily. ??? gabapentin 100 MG capsule Take by mouth 3 (three) times daily. ??? lansoprazole (PREVACID) 30 MG capsule Take 1 tablet by mouth 2 (two) times daily. ??? lorazepam (ATIVAN) 0.5 MG tablet Take by mouth 2 (two) times daily. ??? meloxicam 15 MG tablet Take 15 mg by mouth daily. ??? metoprolol succinate 50 MG 24 hr tablet Take 0.5 tablets (25 mg total) by mouth daily. 30 tablet 12 ??? omeprazole 20 MG capsule Take 20 mg by mouth 2 (two) times a day. ??? potassium chloride 20 MEQ packet Take by mouth daily. ??? SUMAtriptan (IMITREX) 50 MG tablet Take 50 mg by mouth daily as needed for Migraine. ??? amiodarone 200 MG tablet TAKE EVERY THIRD DAY Medications: Scheduled Meds: ??? [START ON 10/12/2018] amiodarone 200 mg Oral Q3 Days ??? duloxetine 60 mg Oral Daily ??? escitalopram 40 mg Oral Daily ??? ferrous sulfate (65 mg elemental) 325 mg Oral TID WC ??? gabapentin 100 mg Oral TID ??? lorazepam 0.5 mg Oral BID ??? pantoprazole 40 mg Intravenous BID ??? sucralfate 1 g Oral 4 times per day Continuous Infusions: PRN Meds: ROS Constitutional: Fatigue SKIN: Denies presence of rash EYES: Denies recent vision loss/changes ENT: Denies recent hearing loss/changes CARDIOVASCULAR: CV ROS as noted in history of present illness RESPIRATORY: Dyspnea on exertion. Denies chronic cough, hemoptysis or snoring GI: Admits to melena. Denies hematochezia : Denies dysuria MUSCULOSKELETAL: Denies joint stiffness or joint pain ENDOCRINE: Denies intolerance to heat/cold intolerance or excessive hunger/thirst NEUROLOGIC: Denies numbness, tingling, or weakness of extremities HEMATOLOGIC: Denies easy bruising or bleeding OBJECTIVE: Today's Weight: Last Recorded Weight 10/10/184 Weight: 67.1 kg (147 lb 14.9 oz) Weight change in the last 24 hours: an appropriate measurement is not found Vital signs in the last 24 hours: Temp: [97.9 ??F (36.6 ??C)-99.3 ??F (37.4 ??C)] 98.8 ??F (37.1 ??C) Pulse: [65-80] 74 Resp: [16-28] 25 BP: (103-148)/(38-81) 130/48 Physical Exam GENERAL: Well developed, well nourished, in no apparent distress. EYES: There are no xanthelasma ENT: Oral mucosa is without pallor or cyanosis NECK: Supple without jugular venous distention. Carotids are 2+ bilaterally without bruits. RESPIRATORY: No intercostal retractions noted. Chest clear to auscultation. CV: Regular rate/rhythm. Normal S1 and S2 without S3 or S4 gallop. No significant murmur is present. ABDOMEN: Benign without hepatosplenomegaly, mass or tenderness. The abdominal aorta was not palpably enlarged; no abdominal bruit present. EXTREMITIES: Trace edema. The femoral and pedal pulses were 2+ bilaterally. MUSCULOSKELETAL: No severe kyphoscoliosis noted. SKIN: Without evidence of xanthoma. Labs and Cultures: Lab Results Component Value Date NA 135 (L) 10/11/2018 K 4.6 10/11/2018 CL 107 10/11/2018 CO2 23.1 10/11/2018 AGAP 4.9 (L) 10/11/2018 BUN 16 10/11/2018 CR 0.75 10/11/2018 GFRNON 77 (L) 10/11/2018 GFR 89 (L) 10/11/2018 GLU 91 10/10/2018 CA 7.7 (L) 10/11/2018 Lab Results Component Value Date WBC 7.2 10/11/2018 HGB 7.0 (L) 10/11/2018 PLT 218 10/11/2018 Lab Results Component Value Date TP 4.9 (L) 10/10/2018 ALB 2.8 (L) 10/10/2018 ALT 10 (L) 10/10/2018 TSH 1.880 10/10/2018 Microbiology Results (last 14 days) Procedure Component Value Units Date/Time CULTURE, BACTERIA, BLOOD [[id number]] Collected: 10/10/18 2310 Order Status: Completed Lab Status: In process Updated: 10/10/18 2343 Specimen: BLOOD MRSA SCREENING [[id number]] Collected: 10/10/18 2304 Order Status: Completed Lab Status: Final result Updated: 10/11/18 1135 Specimen: NASAL SPECIMEN SOURCE RESPIRATORY, NOSE MRSA BY PCR METHICILLIN RESISTANT STAPH AUREUS NOT DETECTED OCCULT BLOOD, FECES [[id number]] Order Status: Canceled Lab Status: No result Specimen: STOOL CULTURE URINE [[id number]] Collected: 10/10/18 1805 Order Status: Completed Lab Status: In process Updated: 10/10/18 1817 Specimen: URINE, CLEAN CATCH CULTURE, BACTERIA, BLOOD [[id number]] Collected: 10/10/18 0600 Order Status: Completed Lab Status: In process Updated: 10/11/18 0651 Specimen: BLOOD ASSESSMENT/PLAN: Problem List Items Addressed This Visit None 1. Anemia with admission Hgb 4.3 2. History of atrial fibrillation 3. Chronic anticoagulation with Pradaxa 4. Now Sinus rhythm 5. Severe mitral regurgitation 6. H/O ulcers Ms. Klein is a complex 78-year-old female with multiple medical comorbidities as outlined above. She has a history of atrial fibrillation with ablation. Per patient's report, the ablation was aborted secondary to question of perforation. This is many years ago and there is no report of this. She has been on amiodarone and anticoagulated with Pradaxa for many years. She has never had any issues with GI bleed while being on Pradaxa. She presents with hemoglobin of 4.3. She has been transfused and hemoglobin is 7 this morning. GI service has evaluated her and recommendations have been appreciated. Pradaxa to be held. Further recommendations on intervention for mitral valve is ongoing. Structural heart team to need to discuss options which can be done on an outpatient basis. We will continueto follow along. We appreciate participating in the care of Mrs. Klein. Code Status: Full Code Signed MARLENE SANTOS PA-C 10/11/2018 2:28 PM Cosigned by Go Richards MD at 10/12/2018 7:29 PM CDT Associated attestation - Go Richards MD - 10/12/2018 7:29 PM CDT I, GO RICHARDS MD, performed a Consultation and History & Physical examination of the patient and discussed the management with the Advanced Practice Provider (JOANNA). I reviewed the JOANNA's note and agree with the findings and plan of care, except as I have documented. Plan of care developed under my direct supervision. Acute GI blood loss anemia Was on pradaxa Transfused Agree with gi work up and management No OAC for now Will discuss issues with AF, stroke risk, also severe MR - need to be discussed in valve meeting Late note entry - for 10/11/18 * Samm Graham MD - 10/11/2018 10:24 AM CDTAssociated Order(s): IP CONSULT TO GASTROENTEROLOGY Gastroenterology Consult Note Consulting Provider: SAMM GRAHAM MD Attending Provider: Lloyd Hernandez MD PCP: JARRET MARTINEZ MD Reason for Consult: Profound anemia HPI: Juana Klein is an 78-year-old female.consulted for anemia in the absence of reported over bleeding. She had a colonoscopy July 2015 reportedly negative. She notes 20 or more years ago she has EGD and had bleeding ulcers necessitating a partial gastrectomy but can't be more specific on the details. No abdominal pain currently. She has a past medical history pertinent of chronic anemia and PUD in remote past presents to the outside ED [[facility] with chief compliant of feeling weak. Symptoms started a couple of days ago and have been getting worse over time. Associated symptoms include feeling light headed; she denies syncope. She reports her symptoms are worse with standing/ changing position. She does not report melena but admits her stools are usually dark due to her chronic ingestion of iron supplements. Denies hematochezia or chronic NSAID use. She is on choric anticoagulation with Pradaxa due to her atrial fibrillation. ?? In the ED, she has stable hemodynamics; however, is orthostatic. Hematology panel was notable for aHgb of 4; coag panel unremarkable; chemistry panel notable Na of 130; Troponin I and Lactic acid were unremarkable. PCXR was read by radiology as cardiomegaly and vascular congestion with bronchial wall thickening. Past Medical History: Diagnosis Date ??? Anxiety ??? Atrial fibrillation (CMS/HCC) ??? Coronary artery disease ??? Depression ??? GERD (gastroesophageal reflux disease) ??? Migraine ??? Mitral valve disorder Allergies: No Known Allergies Social History Tobacco Use ??? Smoking status: Never Smoker ??? Smokeless tobacco: Never Used Substance Use Topics ??? Alcohol use: No Frequency: Never Past Surgical History: Procedure Laterality Date ??? APPENDECTOMY ??? HYSTERECTOMY ??? TOTAL KNEE ARTHROPLASTY Family History Problem Relation Name Age of Onset ??? Kidney Disease Mother ??? Heart Disease Father No current facility-administered medications on file prior to encounter. Current Outpatient Medications on File Prior to Encounter Medication Sig ??? amiodarone 200 MG tablet TAKE EVERY THIRD DAY ??? calcium carb-cholecalciferol (CALTRATE 600+D) 600-800 MG-UNIT tablet Take by mouth daily. ??? dabigatran (PRADAXA) 150 MG Cap Take 1 capsule (150 mg total) by mouth 2 (two) times daily. ??? duloxetine (CYMBALTA) 60 MG capsule Take by mouth daily. ??? escitalopram 20 MG tablet Take 40 mg by mouth daily. ??? ferrous sulfate, 65 mg elemental, 325 (65 FE) MG tablet Take by mouth 2 (two) times daily. ??? gabapentin 100 MG capsule Take by mouth 3 (three) times daily. ??? lansoprazole (PREVACID) 30 MG capsule Take 1 tablet by mouth 2 (two) times daily. ??? lorazepam (ATIVAN) 0.5 MG tablet Take by mouth 2 (two) times daily. ??? meloxicam 15 MG tablet Take 15 mg by mouth daily. ??? metoprolol succinate 50 MG 24 hr tablet Take 0.5 tablets (25 mg total) by mouth daily. ??? omeprazole 20 MG capsule Take 20 mg by mouth 2 (two) times a day. ??? potassium chloride 20 MEQ packet Take by mouth daily. ??? SUMAtriptan (IMITREX) 50 MG tablet Active Problems: Hemorrhagic shock (CMS/HCC) SNOMED CT(R): HEMORRHAGIC SHOCK Review of Systems Constitutional: Negative for chills, fever and weight loss. HENT: Negative for nosebleeds and sore throat. Eyes: Negative for discharge. Respiratory: Negative for cough and shortness of breath. Cardiovascular: Negative for chest pain and palpitations. Genitourinary: Negative for hematuria. Musculoskeletal: Negative for back pain and joint pain. Skin: Negative for rash. Neurological: Negative for dizziness and loss of consciousness. Endo/Heme/Allergies: Does not bruise/bleed easily. Psychiatric/Behavioral: Negative for memory loss. The patient is not nervous/anxious. All other systems reviewed and are negative. Blood pressure 131/53, pulse 77, temperature 98.1 ??F (36.7 ??C), temperature source Tympanic, resp. rate 22, height 5' 3 (1.6 m), weight 67.1 kg (147 lb 14.9 oz), SpO2 93 %. Physical Exam Constitutional: Patient is oriented to person, place, and time. Appears well- developed and well-nourished. Head: Normocephalic and atraumatic. Mouth/Throat: Oropharynx is clear and moist. Eyes: Conjunctivae are normal. Pupils are equal, round, and reactive to light. No scleral icterus. Cardiovascular: Normal rate, regular rhythm and normal heart sounds. Pulmonary/Chest: Effort normal and breath sounds normal. Abdominal: Soft. Bowel sounds are normal There is no hepatosplenomegaly. There is no tenderness, rebound or guarding. No distension or mass. Musculoskeletal: He exhibits no edema. Lymphadenopathy: No cervical adenopathy. Neurological: Patient is alert and oriented to person, place, and time. Skin: No rash noted. No erythema. Labs: Recent Labs Lab 10/10/18 1718 10/10/18 2310 10/11/18 0600 WBC 6.3 6.3 7.2 RBC 1.51* 1.92* 3.11* HGB 4.3* 5.4* 9.1* HCT 14.0* 18.0* 27.7* MCV 92.7 93.8 89.1 MCH 28.5 28.1 29.3 MCHC 30.7* 30.0* 32.9* PLT 245 245 218 RDW 13.9 14.0 15.8* MPV 10.2 10.6* 10.9* NEUC 4.40 -- -- [facility] 1.08 1.27 1.05 MONOC 0.64 0.70 0.62 EOSC 0.12 0.14 0.15 BASOC 0.02 0.03 0.05 Recent Labs Lab 10/10/18 1718 10/10/18 2310 10/11/18 0600 NA 130* 136 135* K 4.1 4.0 4.6 CL 98 106 107 CO2 26.6 24.9 23.1 AGAP 5.4 5.1 4.9* BUN 24 18 16 CR 0.89 0.72 0.75 GFRNON 63* 81* 77* GFR 72* >90 89* GLU 98 91 -- CA 7.6* 7.7* 7.7* TP 5.0* 4.9* -- ALB 2.6* 2.8* -- TBIL 0.2 0.3 -- ALKP 34* 34* -- AST 8* 7* -- ALT 13* 10* -- Recent Labs Lab 10/10/181717 PTT 51.9* INR 1.1 Radiology: Use Transesophageal Echo Result Date: 10/03/2018 Transesophageal Echocardiography Report Pat.Name: JUANA KLEIN Pat.ID: [id number] .Date: 10/03/2018 : [id number] VINCENT Exam Time: 9:50:00 AM Study Type:TRANSESOPHAGEAL ECHO (WALDO) Height: 157cm Weight: 61kg BSA: 1.61 m2 Age: 11 1940,78Y Sex: FEMALE BP: 110/50 HR: 60 bpm Sonogrphr: Katharina Sky RDCS Pat. Stat.:Outpatient Room: CVD CPT: 22379 [id number] Reason for Study:MR Procedures:2D, 3 Dimensional imaging with full Doppler and color interigation, Doppler, Color Flow, Intraveneous saline contrast was used to help determine presence of intracardiac shunting.,Transesophageal Race: W ++++++++++++++++++++++++++++++++++++ SUMMARY: ++++++++++++++++++++++++++++++ ++++++ -Normal left ventricular cavity size with normal contractility, estimated LVEF 60 to 65%. There is severe basal septal hypertrophy measuring 1.8 cm, and only mild hypertrophy in all other wallsegments. -There is no evidence of dynamic LVOT obstruction at rest, or with the Valsalva maneuver (transthoracic hemodynamics were performed prior to the WALDO). During the WALDO, there was no mitral ALEX, and no outflow gradient. 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 The regurgitation occurs between A2/P2, most pronounced at the medial aspect. There appears to be some thinning of the medial aspect of A2, and the medial aspect of P2, where most of the regurgi tation occurs. I do not see any torn cords, prolapse or flail. The vena contracta area using 3D color Doppler is >1 cm2, which is huge. There are systolic reversals in the pulmonary veins. -Other MV measurements: Posterior leaflet length 8 mm; Mitral valve area (orifice) measures 2.9 cm2. Mitral gradient 2 mmHg at 65 bpm. Septal to leaflet coaptation distance up to 4.6 cm. There is mild annular calcification. -Mild tricuspid regurgitation; sclerotic aortic valve with normal function. -Severeleft atrial enlargement, mild right atrial enlargement -Atrial septal aneurysm with PFO. Small leftto right shunt with color Doppler. No right to left shunting was demonstrated with saline contrast study however she was not able to cooperate with the Valsalva maneuver. I suspect that we would see right to left shunting if she could have done so. Comment: This patient's mitral orifice and annularsize is very small, which is a contraindication to the MitraClip procedure. We could do CT modelingto see if she would be a candidate for an Dawn James TMVR, or an AltaValve, or a Tendyne valve.We will discuss in the Structural Heart group meeting. ++++++++++++++++++++++++++++++++++++ FINDINGS: ++++++++++++++++++++++++++++++++++++ WALDO: The patient was counseled and an informed consent was obtained. The posterior pharynx was anesthetized. The patient was placed in a left lateral recumbent position and a plastic bite was inserted into the mouth. IV sedation was administered. The transesophageal echo probe was inserted into the posterior pharynx and the esophagus was then intubated without difficulty. Multiple views were then obtained from the upper, mid, and lower esophagus and the gastric fundus. The scope was rotated 180 degrees and the aorta was visualized. The scope was withdrawn under continuous suction. The patient tolerated the procedure well without any apparent complications. LV: The left ventricular size is normal. The left ventricular systolic function is normal. Estimated left ventricular ejection fraction is 60- 65%. Mild concentric left ventricular hypertrophy. WM: Wall motion appears normal in all segments. LVOT: The left ventricular outflow tract size is normal. RV: The right ventricle size is normal. The right ventricular function is normal. IVS: Asymmetrichypertrophy of the left ventricular basal septum is noted. LA: The left atrial size is severely enlarged. Left atrial appendage shows no evidence of thrombus. RA: Right atrial size is mildly enlarged. IAS: Atrial septum shows evidence of small patent foramen ovale. JESSICA: No evidence of pericardialeffusion. AO: The aorta is atherosclerotic. PA: The peak pulmonary artery systolic pressure is estimated to be approximately 28mmHg + RAP mmHg. AV: The aortic valve is trileaflet. No evidence of aortic valve stenosis. No evidence of aortic valve regurgitation. Mild aortic valve sclerosis. MV: Severe mitral regurgitation with a measures ERO of >1cm^2 by 3D Color. No evidence of mitral stenosis. Mildly calcified anterior and posterior mitral annulus. Myxomatous degeneration of mitral valve. The mean gradient across the mitral valve is 2 at a heart rate of 63. The mitral valve area by 3D planimetry is 2.8cm^2. Spectral Doppler of the pulmonary veins demonstrates systolic flow reversal which indicates severe mitral regurgitation. Septal to leaflet coaptation distance is 4.6cm. The posterior leaflet measures 8mm. PV: The pulmonic valve is normal There is trace pulmonic regurgitation TV: Mild tricuspid regurgitation. Moderate thickening of tricuspid valve leaflets. No evidence of tricuspid valve stenosis. ++++++++++++++++++++++++++++++++++++ WALDO: ++++++++++++++++++++++++++++++++++++ Pre WALDO BP HR Post WALDO BP HR 110/50 60 Meds: Benzocaine spray was used with 2 sprays., Midazolam/Versed 6 mg IV, Fentanyl 50 mcg IV Complications: None Condition: Good Comments: 49 ++++++++++++++++++++++++++++++++++++ MEASUREMENTS: ++++++++++++++++++++++++++++++++++++ 2D Ventricular Septum IVSd 1.79 cm DOPPLER MV Forward Flow MV mnPG 2 mmHg MV pkPG 4 mmHg LA QLab HM Left Atrium Min 48 ml Left Atrium Max 54 ml/m2 Left Atrium Max 86 ml Left Atrium Eje 44 % LV QLab Patient Height 157 [place] 85686 cm2 Patient Weight 43195 g LV QLab HM LVEF 68 % Left Ventricula 172 g SV 64 ml CI 2.66 l/min/m2 Left Ventricula 95 ml Left Ventricle 60 % LV Base to [place] 8.5 cm Left Ventricle 30 % LV Base to [place] 6.4 cm Left Ventricle 54 % Left Ventricula 30 ml Heart rate 66 bpm Signed 10/03/2018 05:54 PM Logan Wadsworth M.D. Xr Chest Portable Result Date: 10/10/2018 Date: 10/10/2018 5:11 PM Exam: XR CHEST PORTABLE Comparison: Chest radiography dated 01/01/2017. Technique: Single view chest. History: Weakness and shortness of breath. Fatigue. Findings: Since the cardiac silhouette is somewhat enlarged. There is vascular congestion. There are no dense consolidations nor pleural effusions. There are mild and vague opacities in the infrahilar locations possibly atelectasis and/or infiltrates. There is no pneumothorax. There is central bronchial wall thickening. This could indicate bronchitis, peribronchial cuffing or possibly reactive airway disease. The osseous structures are intact. Impression: 1. Cardiomegaly and vascular congestion. 2. Bronchial wall thickening could indicate bronchitis, reactive airway disease and/or peribronchial cuffing. 3. Mild atelectasis or infiltrates in the infrahilar regions. InterpretedBy: Adryan Atwood, 10/10/2018 5:14 PM Assessment/Recommendations: Patient is a 78-year-old female with possible occult bleeding and negative colonoscopy 2016. There is noted that she has had gastric surgery over 20 years ago and these patients can develop anastomotic cancer after that time period so it is reasonable to take a look and this would potentially impact on the use of her Pradaxa depending on results. SAMM GRAHAM MD 10/11/2018 documented in this encounter Plan of Treatment Scheduled Orders Name Type Priority Associated Diagnoses Orde r Schedule Case request operating room: EGD WITH CONTROL BLEEDING Case Request Routine Once for 1 Occur rences starting 10/11/2018 until 10/11/2018 documented as of this encounter Procedures Procedure Name Priority Date/Time Associated Diagnosis Comments HEMOGLOBIN AND HEMATOCRIT TIMED 10/15/2018 8:18 AM CDT COMPREHENSIVE METABOLIC PANEL Routine 10/15/2018 8:18 AM CDT HEMOGLOBIN AND HEMATOCRIT TIMED 10/14/2018 8:45 PM CDT HEMOGLOBIN AND HEMATOCRIT TIMED 10/14/2018 8:29 AM CDT COMPREHENSIVE METABOLIC PANEL Routine 10/14/2018 8:29 AM CDT HEMOGLOBIN AND HEMATOCRIT TIMED 10/13/2018 8:08 PM CDT HEMOGLOBIN AND HEMATOCRIT TIMED 10/13/2018 7:51 AM CDT COMPREHENSIVE METABOLIC PANEL Routine 10/13/2018 7:51 AM CDT HEMOGLOBIN AND HEMATOCRIT TIMED 10/12/2018 9:05 PM CDT BMP WITHOUT GLUCOSE STAT 10/12/2018 9 :57 AM CDT HEMOGLOBIN AND HEMATOCRIT TIMED 10/12/2018 9:56 AM CDT HEMOGLOBIN AND HEMATOCRIT TIMED 10/11/2018 11:44 PM CDT POCT GLUCOSE - HOOVER DOCKED DEVICE Routine 10/11/2018 5:03 PM CDT CTA CHEST Today 10/11/2018 4:[address] SOFT TISSUE NECK W CON Today 10/11/2018 4:06 PM CDT HEMOGLOBIN AND HEMATOCRIT TIMED 10/11/2018 3:30 PM CDT POCT GLUCOSE - HOOVER DOCKED DEVICE Routine 10/11/2018 11:06 AM CDT EGD WITH BIOPSY 10/11/2018 11:05 AM CDT GI bleed HEMOGLOBIN AND HEMATOCRIT STAT 10/11/2018 10:05 AM CDT PATHOLOGY Routine 10/11/2018 9:20 AM CDT POCT GLUCOSE - HOOVER DOCKED DEVICE Routine 10/11/2018 6:56 AM CDT BMP WITHOUT GLUCOSE Routine 10/11/2018 6 :00 AM CDT IRON SAT PANEL (IRON,IBC,%SAT) Routine 10/11/2018 6:00 AM CDT CBC W/DIFF AUTOMATED Routine 10/11/2018 6:00 AM CDT TRANSFUSE RED BLOOD CELLS STAT 10/11/2018 3:44 AM CDT TRANSFUSE RED BLOOD CELLS STAT 10/11/2018 1:32 AM CDT ANTIBODY INTERPRETATION TIMED 10/11/2018 12:59 AM CDT TYPE & SCREEN STAT 10/10/2018 11:10 PM CDT COMPREHENSIVE METABOLIC PANEL Routine 10/10/2018 11:10 PM CDT LACTIC ACID Routine 10/10/2018 11:10 PM CDT CULTURE, BACTERIA, BLOOD Routine 10/10/2018 11:10 PM CDT CBC W/DIFF AUTOMATED Routine 10/10/2018 11:10 PM CDT THYROID STIM HORMONE TSH Routine 10/10/2018 11:10 PM CDT MAGNESIUM Routine 10/10/2018 11:10 PM CDT LIPASE Routine 10/10/2018 11:10 PM CDT CALCIUM, IONIZED Routine 10/10/2018 11:1 0 PM CDT MRSA SCREENING Nurse Collected Priority 10/10/2018 11:04 PM CDT POCT GLUCOSE - HOOVER DOCKED DEVICE Routine 10/10/2018 11:00 PM CDT CULTURE, BACTERIA, BLOOD Routine 10/10/2018 6:00 AM CDT documented in this encounter Results * (ABNORMAL) HEMOGLOBIN AND HEMATOCRIT (10/15/2018 8:18 AM CDT) HGB 9.7(L) 12.0 - 16.0 G/DL 10/15/2018 11:25 AM CDT [facility] HCT 29.9(L) 36.0 - 47.0 % 10/15/2018 11:25 AM CDT [facility] 10/15/2018 8:18 AM CDT Lourdes Foster MD LABORATORY Final Result [facility] [address] [place] [address], [id number] * (ABNORMAL) COMPREHENSIVE METABOLIC PANEL (10/15/2018 8:18 AM CDT) [facility] SODIUM S/P/B 135(L) 136 - 145 MMOL/L 10/15/2018 12:47 PM CDT [facility] POTASSIUM S/P/B 3.6 3.5 - 5.1 MMOL/L 10/15/2018 12:47 PM CDT [facility] CHLORIDE S/P/B 102 98 - 107 MMOL/L 10/15/2018 12:47 PM CDT [facility] CO2 25.4 21.0 - 32.0 MMOL/L 10/15/2018 12:47 PM CDT [facility] GLUCOSE 90 74 - 106 MG/DL 10/15/2018 12:47 PM CDT [facility] BUN 9 7 - 18 MG/DL 10/15/2018 12:47 PM CDT [facility] CREATININE S/P/B 0.65 0.55 - 1.02 MG/DL 10/15/2018 12:47 PM CDT [facility] CALCIUM S/P/B 7.7(L) 8.5 - 10.1 MG/DL 10/15/2018 12:47 PM CDT [facility] BILIRUBIN TOTAL S/P/B 0.5 0.2 - 1.0 MG/DL 10/15/2018 12:47 PM CDT [facility] ALKALINE PHOSPHATASE S/P/B 61 55 - 142 U/L 10/15/2018 1:01 PM CDT [facility] AST 6(L) 15 - 37 U/L 10/15/2018 12:47 PM T [facility] ALT 10(L) 13 - 56 U/L 10/15/2018 12:47 PM CDT [facility] TOTAL PROTEIN S/P/B 5.8(L) 6.4 - 8.2 G/DL 10/15/2018 12:47 PM CDT [facility] ALBUMIN S/P/B 2.7(L) 3.4 - 5.0 G/DL 10/15/2018 12:47 PM CDT [facility] ANION GAP 7.6 5.0 - 15.0 MMOL/L 10/15/2018 12:47 PM CDT [facility] Comment:REFERENCE RANGE NOT ESTABLISHED OSMOLALITY (CALC) 278 MOSM/KG 10/15/2018 12:47 PM CDT [facility] Comment:REFERENCE RANGE NOT ESTABLISHED EGFR NON-AFR. AMER. 86(L) >90 ML/MIN/1 .73 M2 10/15/2018 12:47 PM CDT [facility] EGFR AFR. AMER. >90 >90 ML/MIN/1 .73 M2 10/15/2018 12:47 PM CDT [facility] GFR NOTES THE ESTIMATED GFR IS CALCULATED USING THE 2009 CKD-EPI EQUATION. THE FOLLOWING CATEGORIES FOR GRADING RENAL FUNCTION ARE RECOMMENDED BY THE INTERNATIONAL SOCIETY OF NEPHROLOGY (KDIGO 2012 CLINICAL PRACTICE GUIDELINE). 10/15/2018 12:47 PM CDT [facility] Comment: G1,NORMAL OR HIGH: >89 ml/min/1.73 m2 G2,MILDLY DECREASED: 60-89 ml/min/1.73 m2 G3A,MILDLY TO MODERATELY DECREASED: 45-59 ml/min/1.73 m2 G3B,MODERATELY TO SEVERELY DECREASED: 30-44 ml/min/1.73 m2 G4,SEVERELY DECREASED: 15-29 ml/min/1.73 m2 G5,KIDNEY FAILURE: <15 ml/min/1.73 m2 10/15/2018 8:18 AM CDT Lourdes Foster MD LABORATORY Final Result [facility] [address] [place] [address], [id number] * (ABNORMAL) HEMOGLOBIN AND HEMATOCRIT (10/14/2018 8:45 PM CDT) HGB 9.3(L) 12.0 - 16.0 G/DL 10/14/2018 9:15 PM CDT [facility] HCT 28.8(L) 36.0 - 47.0 % 10/14/2018 9:15 PM CDT [facility] 10/14/2018 8:45 PM CDT us Lourdes Foster MD LABORATORY Final Result Performing Organization Address [facility] Co de Phone Number [facility] [address] [place] [address], [id number] * (ABNORMAL) HEMOGLOBIN AND HEMATOCRIT (10/14/2018 8:29 AM CDT) HGB 10.4(L) 12.0 - 16.0 G/DL 10/14/2018 8:43 AM CDT [facility] HCT 31.8(L) 36.0 - 47.0 % 10/14/2018 8:43 AM CDT [facility] 10/14/2018 8:29 AM CDT us Lourdes Foster MD LABORATORY Final Result Performing Organization Address [facility] de Phone Number [facility] [address] [place] [address], [id number] * (ABNORMAL) COMPREHENSIVE METABOLIC PANEL (10/14/2018 8:29 AM CDT) SODIUM S/P/B 133(L) 136 - 145 MMOL/L 10/14/2018 9:15 AM CDT [facility] POTASSIUM S/P/B 3.9 3.5 - 5.1 MMOL/L 10/14/2018 9:15 AM CDT [facility] CHLORIDE S/P/B 102 98 - 107 MMOL/L 10/14/2018 9:15 AM CDT [facility] CO2 25.3 21.0 - 32.0 MMOL/L 10/14/2018 9:15 AM CDT [facility] GLUCOSE 113(H) 74 - 106 MG/DL 10/14/2018 9:15 AM CDT [facility] BUN 9 7 - 18 MG/DL 10/14/2018 9:15 AM T [facility] CREATININE S/P/B 0.80 0.55 - 1.02 MG/DL 10/14/2018 9:15 AM T [facility] CALCIUM S/P/B 8.1(L) 8.5 - 10.1 MG/DL 10/14/2018 9:15 AM T [facility] BILIRUBIN TOTAL S/P/B 0.6 0.2 - 1.0 MG/DL 10/14/2018 9:15 AM T [facility] ALKALINE PHOSPHATASE S/P/B 58 55 - 142 U/L 10/14/2018 9:15 AM [facility] AST 7(L) 15 - 37 U/L 10/14/2018 9:15 AM [facility] ALT 10(L) 13 - 56 U/L 10/14/2018 9:15 AM [facility] TOTAL PROTEIN S/P/B 6.2(L) 6.4 - 8.2 G/DL 10/14/2018 9:15 AM [facility] ALBUMIN S/P/B 3.0(L) 3.4 - 5.0 G/DL 10/14/2018 9:15 AM [facility] ANION GAP 5.7 5.0 - 15.0 MMOL/L 10/14/2018 9:15 AM [facility] Comment:REFERENCE RANGE NOT ESTABLISHED OSMOLALITY (CALC) 275 MOSM/KG 10/14/2018 9:15 AM [facility] Comment:REFERENCE RANGE NOT ESTABLISHED EGFR NON-AFR. AMER. 71(L) >90 ML/MIN/1 .73 M2 10/14/2018 9:15 AM T [facility] EGFR AFR. AMER. 82(L) >90 ML/MIN/1 .73 M2 10/14/2018 9:15 AM CDT [facility] GFR NOTES THE ESTIMATED GFR IS CALCULATED USING THE 2009 CKD-EPI EQUATION. THE FOLLOWING CATEGORIES FOR GRADING RENAL FUNCTION ARE RECOMMENDED BY THE INTERNATIONAL SOCIETY OF NEPHROLOGY (KDIGO 2012 CLINICAL PRACTICE GUIDELINE). 10/14/2018 9:15 AM CDT [facility] [facility] Comment: G1,NORMAL OR HIGH: >89 ml/min/1.73 m2 G2,MILDLY DECREASED: 60-89 ml/min/1.73 m2 G3A,MILDLY TO MODERATELY DECREASED: 45-59 ml/min/1.73 m2 G3B,MODERATELY TO SEVERELY DECREASED: 30-44 ml/min/1.73 m2 G4,SEVERELY DECREASED: 15-29 ml/min/1.73 m2 G5,KIDNEY FAILURE: <15 ml/min/1.73 m2 10/14/2018 8:29 AM CDT Lourdes Foster MD LABORATORY Final Result Performing Organization Address City/[facility] Co de Phone Number [facility] [address] [place] [address], [phone] * (ABNORMAL) HEMOGLOBIN AND HEMATOCRIT (10/13/2018 8:08 PM CDT) HGB 9.5(L) 12.0 - 16.0 G/DL 10/13/2018 8:18 PM CDT [facility] HCT 29.3(L) 36.0 - 47.0 % 10/13/2018 8:18 PM CDT [facility] 10/13/2018 8:08 PM CDT us Lourdes Foster MD LABORATORY Final Result Performing Organization Address City/[facility]/ZIP Co de Phone Number [facility] [address] [place] [address], [phone] * (ABNORMAL) HEMOGLOBIN AND HEMATOCRIT (10/13/2018 7:51 AM CDT) HGB 9.5(L) 12.0 - 16.0 G/DL 10/13/2018 8:43 AM CDT [facility] HCT 28.9(L) 36.0 - 47.0 % 10/13/2018 8:43 AM CDT [facility] 10/13/2018 7:51 AM CDT Lourdes Foster MD LABORATORY Final Result [facility] [address] [place] [address], [phone] * (ABNORMAL) COMPREHENSIVE METABOLIC PANEL (10/13/2018 7:51 AM CDT) SODIUM S/P/B 134(L) 136 - 145 MMOL/L 10/13/2018 9:11 AM CDT [facility] POTASSIUM S/P/B 3.9 3.5 - 5.1 MMOL/L 10/13/2018 9:11 AM CDT [facility] CHLORIDE S/P/B 104 98 - 107 MMOL/L 10/13/2018 9:11 AM CDT [facility] CO2 25.4 21.0 - 32.0 MMOL/L 10/13/2018 9:11 AM CDT [facility] GLUCOSE 109(H) 74 - 106 MG/DL 10/13/2018 9:11 AM CDT [facility] BUN 8 7 - 18 MG/DL 10/13/2018 9:11 AM CDT [facility] CREATININE S/P/B 0.65 0.55 - 1.02 MG/DL 10/13/2018 9:11 AM CDT [facility] CALCIUM S/P/B 8.0(L) 8.5 - 10.1 MG/DL 10/13/2018 9:11 AM CDT [facility] BILIRUBIN TOTAL S/P/B 0.6 0.2 - 1.0 MG/DL 10/13/2018 9:11 AM [facility] ALKALINE PHOSPHATASE S/P/B 51(L) 55 - 142 U/L 10/13/2018 9:11 AM [facility] AST 8(L) 15 - 37 U/L 10/13/2018 9:11 AM [facility] ALT 12(L) 13 - 56 U/L 10/13/2018 9:11 AM [facility] TOTAL PROTEIN S/P/B 5.7(L) 6.4 - 8.2 G/DL 10/13/2018 9:11 AM [facility] ALBUMIN S/P/B 2.9(L) 3.4 - 5.0 G/DL 10/13/2018 9:11 AM [facility] ANION GAP 4.6(L) 5.0 - 15.0 MMOL/L 10/13/2018 9:11 AM [facility] Comment:REFERENCE RANGE NOT ESTABLISHED OSMOLALITY (CALC) 277 MOSM/KG 10/13/2018 9:11 AM [facility] Comment:REFERENCE RANGE NOT ESTABLISHED EGFR NON-AFR. AMER. 86(L) >90 ML/MIN/1 .73 M2 10/13/2018 9:11 AM [facility] EGFR AFR. AMER. >90 >90 ML/MIN/1 .73 M2 10/13/2018 9:11 AM [facility] GFR NOTES THE ESTIMATED GFR IS CALCULATED USING THE 2009 CKD-EPI EQUATION. THE FOLLOWING CATEGORIES FOR GRADING RENAL FUNCTION ARE RECOMMENDED BY THE INTERNATIONAL SOCIETY OF NEPHROLOGY (KDIGO 2012 CLINICAL PRACTICE GUIDELINE). 10/13/2018 9:11 AM [facility] Comment: G1,NORMAL OR HIGH: >89 ml/min/1.73 m2 G2,MILDLY DECREASED: 60-89 ml/min/1.73 m2 G3A,MILDLY TO MODERATELY DECREASED: 45-59 ml/min/1.73 m2 G3B,MODERATELY TO SEVERELY DECREASED: 30-44 ml/min/1.73 m2 G4,SEVERELY DECREASED: 15-29 ml/min/1.73 m2 G5,KIDNEY FAILURE: <15 ml/min/1.73 m2 10/13/2018 7:51 AM CDT Lourdes Foster MD LABORATORY Final Result Performing Organization Address [facility] Co de Phone Number [facility] [address] [place] [address], [phone] * (ABNORMAL) HEMOGLOBIN AND HEMATOCRIT (10/12/2018 9:05 PM CDT) HGB 9.2(L) 12.0 - 16.0 G/DL 10/12/2018 9:38 PM CDT [facility] HCT 28.7(L) 36.0 - 47.0 % 10/12/2018 9:38 PM CDT [facility] 10/12/2018 9:05 PM CDT Lourdes Foster MD LABORATORY Final Result Performing Organization Address [facility] de Phone Number [facility] [address] [place] [address], [phone] * (ABNORMAL) BMP WITHOUT GLUCOSE (10/12/2018 9:57 AM CDT) SODIUM S/P/B 135(L) 136 - 145 MMOL/L 10/12/2018 10:39 AM CDT [facility] POTASSIUM S/P/B 3.9 3.5 - 5.1 MMOL/L 10/12/2018 10:39 AM CDT [facility] Comment:MILD HEMOLYSIS, RESU LT MAY BE AFFECTED. CHLORIDE S/P/B 104 98 - 107 MMOL/L 10/12/2018 10:39 AM CDT [facility] CO2 25.5 21.0 - 32.0 MMOL/L 10/12/2018 10:39 AM CDT [facility] BUN 7 7 - 18 MG/DL 10/12/2018 10:39 AM CDT [facility] CREATININE S/P/B 0.70 0.55 - 1.02 MG/DL 10/12/2018 10:39 AM CDT [facility] CALCIUM S/P/B 7.9(L) 8.5 - 10.1 MG/DL 10/12/2018 10:39 AM CDT [facility] ANION GAP 5.5 5.0 - 15.0 MMOL/L 10/12/2018 10:39 AM CDT [facility] Comment:REFERENCE RANGE NOT ESTABLISHED EGFR NON-AFR. AMER. 84(L) >90 ML/MIN/1 .73 M2 10/12/2018 10:39 AM CDT [facility] EGFR AFR. AMER. >90 >90 ML/MIN/1 .73 M2 10/12/2018 10:39 AM CDT [facility] GFR NOTES THE ESTIMATED GFR IS CALCULATED USING THE 2009 CKD-EPI EQUATION. THE FOLLOWING CATEGORIES FOR GRADING RENAL FUNCTION ARE RECOMMENDED BY THE INTERNATIONAL SOCIETY OF NEPHROLOGY (KDIGO 2012 CLINICAL PRACTICE GUIDELINE). 10/12/2018 10:39 AM CDT [facility] Comment: G1,NORMAL OR HIGH: >89 ml/min/1.73 m2 G2,MILDLY DECREASED: 60-89 ml/min/1.73 m2 G3A,MILDLY TO MODERATELY DECREASED: 45-59 ml/min/1.73 m2 G3B,MODERATELY TO SEVERELY DECREASED: 30-44 ml/min/1.73 m2 G4,SEVERELY DECREASED: 15-29 ml/min/1.73 m2 G5,KIDNEY FAILURE: <15 ml/min/1.73 m2 10/12/2018 9:57 AM CDT us Lourdes Foster MD LABORATORY Final Result [facility] [address] [place] [address], [phone] * (ABNORMAL) HEMOGLOBIN AND HEMATOCRIT (10/12/2018 9:56 AM CDT) HGB 10.1(L) 12.0 - 16.0 G/DL 10/12/2018 10:16 AM CDT [facility] HCT 31.2(L) 36.0 - 47.0 % 10/12/2018 10:16 AM CDT [facility] 10/12/2018 9:56 AM CDT Lourdes Foster MD LABORATORY Final Result Performing Organization Address [facility] de Phone Number [facility] [address] [place] [address], [phone] * (ABNORMAL) HEMOGLOBIN AND HEMATOCRIT (10/11/2018 11:44 PM CDT) HGB 8.8(L) 12.0 - 16.0 G/DL 10/11/2018 11:55 PM CDT [facility] HCT 27.3(L) 36.0 - 47.0 % 10/11/2018 11:55 PM CDT [facility] 10/11/2018 11:4 4 PM CDT us Lourdes Foster MD LABORATORY Final Result Performing Organization Address [facility] de Phone Number [facility] [address] [place] [address], [phone] * POCT glucose (10/11/2018 5:03 PM CDT) GLUCOSE POC 104 70 - 109 10/12/2018 1:08 AM CDT [facility] ORDERS INTERFACE 10/11/2018 5:03 PM CDT us Lourdes Foster MD POCT ORDERABLES - DEVICE Final R esult Performing Organization Address [facility] de Phone Number [facility] ORDERS INTERFACE US * CT SOFT TISSUE NECK W CON (10/11/2018 4:06 PM CDT) Anatomical Region Laterality Modality Neck Computed Tomogra phy 10/11/2018 4:20 PM CDT Impressions 10/11/2018 4:26 PM CDT IMPRESSION: 1. Suggestion of mild mucosal edema along the oropharynx, hypopharynx, and supraglottic larynx. No obvious laryngeal mass. Could correlate with direct visualization. 2. No suspicious appearing or enlarged lymph nodes by size criteria seen in the neck. 3. No soft tissue collections. 4. Bilateral pleural effusions and partially visualized groundglass opacities. Please refer to separately reported CTA of the chest for additional description of pulmonary findings. Interpreted By: Ollie Roper MD, 10/11/2018 4:20 PM Narrative 10/11/2018 4:26 PM CDT INDICATION: Hemoptysis. Blood seen on vocal cords. EXAMINATION: CT examination of the neck was performed after administration of 80 mL intravenous contrast without adverse event with axial and multiplanar reformatted images obtained. A dose lowering technique was used for this procedure, which may include, but is not limited to, dose reduction technique, automated exposure control, the use of iterative reconstruction, and ALARA (As Low As Reasonably Achievable) / Image Gently techniques. COMPARISON: None FINDINGS: Streak artifact from dental amalgam partially obscures assessment. Benign-appearing bony excrescence off of the inferior right mandibular body. Suggestion of mild mucosal edema along the oropharynx, hypopharynx, and supraglottic larynx. No obvious laryngeal mass lesion. Nonspecific asymmetric sclerosis of the left arytenoid cartilage. No destructive changes seen along the laryngeal cartilages. Paraglottic and preepiglottic fat appears unremarkable. Otherwise the remainder of the oral cavity, nasopharynx, oropharynx, and hypopharynx appear unremarkable. No suspicious appearing or enlarged lymph nodes by size criteria seen in the neck. Atherosclerotic vascular calcifications and carotid tortuosity. Major salivary glands and thyroid gland unremarkable. No soft tissue collections. Imaged portions of the intracranial compartment reveal small vessel disease, volume loss, and intracranial atherosclerotic calcifications. Prior lens replacements. Mastoid air cells and paranasal sinuses clear. Partly imaged portions of the upper chest reveal bilateral pleural effusions, dependent atelectasis, and patchy ground glass opacities. Atherosclerotic calcification of aorta and mediastinal great vessels. Please refer to separately reported CT of the chest for description of intrathoracic findings. Degenerative changes in the spine. Procedure Note Ollie Roper MD - 10/11/2018 INDICATION: Hemoptysis. Blood seen on vocal cords. EXAMINATION: CT examination of the neck was performed after administration of 80 mL intravenous contrast without adverse event with axial and multiplanar reformatted images obtained. A dose lowering technique was used for this procedure, which mayinclude, but is not limited to, dose reduction technique, automated exposure control, the use of iterative reconstruction, and ALARA (As Low As Reasonably Achievable) / Image Gently techniques. COMPARISON: None FINDINGS: Streak artifact from dental amalgam partially obscures assessment. Benign-appearing bony excrescence off of the inferior right mandibular body. Suggestion of mild mucosal edema along the oropharynx,hypopharynx, and supraglottic larynx. No obvious laryngeal mass lesion. Nonspecific asymmetric sclerosis of the left arytenoid cartilage. No destructive changes seen along the laryngeal cartilages. Paraglottic andpreepiglottic fat appears unremarkable. Otherwise the remainder of the oral cavity, nasopharynx, oropharynx, and hypopharynx appear unremarkable. Nosuspicious appearing or enlarged lymph nodes by size criteria seen in the neck. Atherosclerotic vascular calcifications and carotid tortuosity. Major salivary glands and thyroid gland unremarkable. No soft tissuecollections. Imaged portions of the intracranial compartment reveal small vessel disease, volume loss, and intracranial atherosclerotic calcifications. Prior lens replacements. Mastoid air cells and paranasal sinuses clear. Partly imaged portions of the upper chest reveal bilateral pleural effusions, dependent atelectasis, and patchy ground glass opacities. Atherosclerotic calcification of aorta and mediastinal great vessels. Please refer to separately reported CT of the chest for description of intrathoracic findings. Degenerative changes in the spine. IMPRESSION: 1. Suggestion of mild mucosal edema along the oropharynx, hypopharynx,and supraglottic larynx. No obvious laryngeal mass. Could correlate withdirect visualization. 2. No suspicious appearing or enlarged lymph nodes by size criteria seenin the neck. 3. No soft tissue collections. 4. Bilateral pleural effusions and partially visualized groundglass opacities. Please refer to separately reported CTA of the chest for additional description of pulmonary findings. Interpreted By: Ollie Roper MD, 10/11/2018 4:20 PM Samm Graham MD CT Final Result * CTA CHEST (10/11/2018 4:06 PM CDT) Anatomical Region Laterality Modality Chest Computed Tomogra phy 10/11/2018 4:39 PM CDT Impressions 10/11/2018 4:50 PM CDT Impression: 1. No pulmonary embolism identified. 2. The pulmonary arteries are diffusely dilated, compatible with underlying pulmonary arterial hypertension. 3. Right basilar opacities are seen within the right upper lobe, potentially representing an infectious or inflammatory process. Given the history of hemoptysis, findings may represent pulmonary hemorrhage. 4. Trace bilateral pleural effusions with atelectasis. 5. Mild to moderate cardiomegaly. Interpreted By: Shaji Holbrook MD, 10/11/2018 4:39 PM Narrative 10/11/2018 4:50 PM CDT Examination: CTA chest. Clinical Information: Hemoptysis. Comparison: CT 12/16/2016. Technique: IV contrast: 80 mL Isovue 370. Oral contrast: None. Technical comments: CTA of the chest was performed according to the pulmonary embolism protocol. Coronal MIP images were submitted for evaluation. Dose reduction: This CT exam was performed using one or more of the following dose reduction techniques: Automated exposure control, adjustment of the mA and/or kV according to patient size, and/or use of iterative reconstruction technique. Findings: PULMONARY VASCULATURE The pulmonary arteries are well-opacified and no intraluminal filling defect is identified. The pulmonary arteries are dilated, with the main pulmonary artery measuring 3.5 cm in diameter. The right pulmonary artery measures approximately 3.3 cm in diameter. The left pulmonary artery measures 2.7 cm in diameter. MEDIASTINUM Support tubes and lines: None. Base of neck/thyroid: Negative. Heart: Mild to moderate cardiomegaly. No signs of right-sided heart strain. No pericardial effusion. ??The thoracic aorta is normal in caliber. Lymph nodes: No supraclavicular, axillary, internal mammary, mediastinal, or hilar adenopathy. LUNGS AND PLEURA Trace bilateral pleural effusions with atelectasis. Diffuse groundglass opacities are seen within the right upper lobe, which may represent an infectious or inflammatory process or given the history of hemoptysis, hemorrhage. No definite bronchial mucous plugging is seen. UPPER ABDOMEN Unremarkable. BONES/SOFT TISSUES Mild multilevel spondylosis. Procedure Note Shaji Holbrook MD - 10/11/2018 Examination: CTA chest. Clinical Information: Hemoptysis. Comparison: CT 12/16/2016. Technique: IV contrast: 80 mL Isovue 370. Oral contrast: None. Technical comments: CTA of the chest was performed according to the pulmonary embolism protocol. Coronal MIP images were submitted for evaluation. Dose reduction: This CT exam was performed using one or more of the following dose reduction techniques: Automated exposure control,adjustment of the mA and/or kV according to patient size, and/or use of iterative reconstruction technique. Findings: PULMONARY VASCULATURE The pulmonary arteries are well-opacified and no intraluminal filling defect is identified. The pulmonary arteries are dilated, with the main pulmonary artery measuring 3.5 cm in diameter. The right pulmonaryartery measures approximately 3.3 cm in diameter. The left pulmonary artery measures 2.7 cm in diameter. MEDIASTINUM Support tubes and lines: None. Base of neck/thyroid: Negative. Heart: Mild to moderate cardiomegaly. No signs of right-sided heartstrain. No pericardial effusion. The thoracic aorta is normal in caliber. Lymph nodes: No supraclavicular, axillary, internal mammary,mediastinal, or hilar adenopathy. LUNGS AND PLEURA Trace bilateral pleural effusions with atelectasis. Diffuse groundglass opacities are seen within the right upper lobe, which may represent an infectious or inflammatory process or given the history of hemoptysis, hemorrhage. No definite bronchial mucous plugging is seen. UPPER ABDOMEN Unremarkable. BONES/SOFT TISSUES Mild multilevel spondylosis. Impression: 1. No pulmonary embolism identified. 2. The pulmonary arteries are diffusely dilated, compatible withunderlying pulmonary arterial hypertension. 3. Right basilar opacities are seen within the right upper lobe, potentially representing an infectious or inflammatory process. Giventhe history of hemoptysis, findings may represent pulmonary hemorrhage. 4. Trace bilateral pleural effusions with atelectasis. 5. Mild to moderate cardiomegaly. Interpreted By: Shaji Holbrook MD, 10/11/2018 4:39 PM Samm Graham MD CT Final Result * (ABNORMAL) HEMOGLOBIN AND HEMATOCRIT (10/11/2018 3:30 PM CDT) HGB 9.3(L) 12.0 - 16.0 G/DL 10/11/2018 3:57 PM CDT [facility] HCT 28.6(L) 36.0 - 47.0 % 10/11/2018 3:57 PM CDT [facility] 10/11/2018 3:30 PM CDT Lloyd Hernandez MD LABORATORY Final Result Performing Organization Address [facility]/ZIP Co de Phone Number [facility] [address] [place] [address], [phone] * (ABNORMAL) POCT glucose (10/11/2018 11:06 AM CDT) Pathologist [facility] GLUCOSE POC 146(H) 70 - 109 10/11/2018 11:29 AM CDT [facility] ORDERS INTERFACE 10/11/2018 11:0 6 AM CDT us Festus Jocelyn DO POCT ORDERABLES - DEVICE Final R esult Performing Organization Address City/[facility]/ZIP Co de Phone Number [facility] ORDERS INTERFACE US * (ABNORMAL) HEMOGLOBIN AND HEMATOCRIT (10/11/2018 10:05 AM CDT) HGB 7.0(L) 12.0 - 16.0 G/DL 10/11/2018 10:29 AM CDT [facility] HCT 22.8(L) 36.0 - 47.0 % 10/11/2018 10:29 AM CDT [facility] 10/11/2018 10:0 5 AM CDT us Lloyd Hernandez MD LABORATORY Final Result Performing Organization Address [facility]/State/ZIP Co de Phone Number [facility] [address] [place] [address], [phone] * Pathology (10/11/2018 9:20 AM CDT) PATHOLOGY [facility] ? Department of Laboratory Medicine ?[address] ?[place] [address] ? , extension [phone] ? Pathology Report ? Surgical Pathology Report Name: JUANA KLEIN ?Specimen #: [id number] Age: 11 1940 (Age: 78) ? Location: [facility] Sex: F ?Procedure Date: 10/11/2018 Hospital #: [id number] ?Date Received: 10/12/2018 Date Reported: 10/13/2018 Provider: SAMM GRAHAM Source: A: Duodenum, biopsies B: Gastric biopsies C: Esophagus, distal, biopsies Preoperative Diagnosis: GI bleed. Gross Description: Received in three parts: A) Received in formalin, labeled with a patient label and as duodenal biopsy are three pieces of ziegler tissue each 0.3 cm. ??The specimen is entirely submitted in cassette A1. B) Received in formalin, labeled with a patient label and as gastric biopsy are four pieces of ziegler tissue ranging from 0.2 to 0.6 cm. ??The specimen is entirely submitted in cassette B1. C) Received in formalin, labeled with a patient label and as distal esophagus are three pieces of ziegler tissue ranging from 0.3 to 0.4 cm. ??The specimen is entirely submitted in cassette C1. FINAL DIAGNOSIS: A) SMALL BOWEL, DUODENUM, BIOPSY: ? - NO SIGNIFICANT HISTOPATHOLOGIC ABNORMALITY. B) STOMACH, BIOPSY: ? - MILD CHRONIC INACTIVE GASTRITIS. ? - NO HELICOBACTER PYLORI ARE IDENTIFIED. C) ESOPHAGUS, DISTAL, BIOPSY: ? - HYPERPLASTIC SQUAMOUS ESOPHAGEAL MUCOSA WITH NUMEROUS INTRAEPITHELIAL ? EOSINOPHILS (FOCALLY UP TO 80 IN A HIGH POWER FIELD). ? - OXYNTIC AND CARDIA-TYPE MUCOSA WITH CHRONIC INFLAMMATION. ? - NEGATIVE FOR WINKLER'S METAPLASIA. ? - NO HELICOBACTER PYLORI ARE IDENTIFIED. Electronically Signed Out ? Timi Arevalo M.D. [facility] Tissue specimen (specimen) GASTRIC BIOPSY SPECIMEN / Unknown 10/11/2018 12:14 PM CDT Tissue specimen (specimen) GASTRIC BIOPSY SPECIMEN / Unknown 10/11/2018 12:14 PM CDT Tissue specimen (specimen) GASTRIC BIOPSY SPECIMEN / Unknown 10/11/2018 12:15 PM CDT us Samm Graham MD PATHOLOGY/CYTOLOGY ORDERABLE S Final Result [facility] [address] [place] [address], [phone] * (ABNORMAL) POCT glucose (10/11/2018 6:56 AM CDT) GLUCOSE POC 123(H) 70 - 109 10/11/2018 6:58 AM CDT [facility] ORDERS INTERFACE 10/11/2018 6:56 AM CDT us Festus Jocelyn DO POCT ORDERABLES - DEVICE Final R esult Performing Organization Address [facility]/ZIP Co de Phone Number [facility] ORDERS INTERFACE US * (ABNORMAL) BMP WITHOUT GLUCOSE (10/11/2018 6:00 AM CDT) SODIUM S/P/B 135(L) 136 - 145 MMOL/L 10/11/2018 7:00 AM CDT [facility] POTASSIUM S/P/B 4.6 3.5 - 5.1 MMOL/L 10/11/2018 7:00 AM CDT [facility] Comment:MILD HEMOLYSIS, RESU LT MAY BE AFFECTED. CHLORIDE S/P/B 107 98 - 107 MMOL/L 10/11/2018 7:00 AM CDT [facility] CO2 23.1 21.0 - 32.0 MMOL/L 10/11/2018 7:00 AM CDT [facility] BUN 16 7 - 18 MG/DL 10/11/2018 7:00 AM CDT [facility] CREATININE S/P/B 0.75 0.55 - 1.02 MG/DL 10/11/2018 7:00 AM CDT [facility] CALCIUM S/P/B 7.7(L) 8.5 - 10.1 MG/DL 10/11/2018 7:00 AM CDT [facility] ANION GAP 4.9(L) 5.0 - 15.0 MMOL/L 10/11/2018 7:00 AM CDT [facility] Comment:REFERENCE RANGE NOT ESTABLISHED EGFR NON-AFR. AMER. 77(L) >90 ML/MIN/1 .73 M2 10/11/2018 7:00 AM CDT [facility] EGFR AFR. AMER. 89(L) >90 ML/MIN/1 .73 M2 10/11/2018 7:00 AM CDT [facility] GFR NOTES THE ESTIMATED GFR IS CALCULATED USING THE 2009 CKD-EPI EQUATION. THE FOLLOWING CATEGORIES FOR GRADING RENAL FUNCTION ARE RECOMMENDED BY THE INTERNATIONAL SOCIETY OF NEPHROLOGY (KDIGO 2012 CLINICAL PRACTICE GUIDELINE). 10/11/2018 7:00 AM CDT [facility] Comment: G1,NORMAL OR HIGH: >89 ml/min/1.73 m2 G2,MILDLY DECREASED: 60-89 ml/min/1.73 m2 G3A,MILDLY TO MODERATELY DECREASED: 45-59 ml/min/1.73 m2 G3B,MODERATELY TO SEVERELY DECREASED: 30-44 ml/min/1.73 m2 G4,SEVERELY DECREASED: 15-29 ml/min/1.73 m2 G5,KIDNEY FAILURE: <15 ml/min/1.73 m2 10/11/2018 6:00 AM CDT us Festus Jocelyn DO LABORATORY Final Result [facility] [address] [place] [id number], [phone] * (ABNORMAL) CBC W/DIFF AUTOMATED (10/11/2018 6:00 AM CDT) WBC 7.2 4.0 - 10.8 x10'3/uL 10/11/2018 6:33 AM CDT [facility] RBC 3.11(L) 4.10 - 5.40 x10'6/uL 10/11/2018 6:33 AM CDT [facility] HGB 9.1(L) 12.0 - 16.0 G/DL 10/11/2018 6:33 AM CDT [facility] HCT 27.7(L) 36.0 - 47.0 % 10/11/2018 6:33 AM CDT [facility] MCV 89.1 78.0 - 100.0 FL 10/11/2018 6:33 AM CDT [facility] MCH 29.3 27.0 - 31.0 PG 10/11/2018 6:33 AM CDT [facility] MCHC 32.9(L) 33.0 - 36.0 G/DL 10/11/2018 6:33 AM CDT [facility] RDW 15.8(H) 11.5 - 14.5 % 10/11/2018 6:33 AM CDT [facility] PLT 218 150 - 350 x10'3/uL 10/11/2018 6:33 AM CDT [facility] MPV 10.9(H) 7.4 - 10.4 FL 10/11/2018 6:33 AM CDT [facility] ABS. NEUTROPHILS TOTAL 5.24 1.60 - 8.30 x10'3/uL 10/11/2018 6:33 AM CDT [facility] ABS. LYMPHOCYTES 1.05 0.80 - 4.70 x10'3/uL 10/11/2018 6:33 AM CDT [facility] ABS. MONOCYTES 0.62 0.00 - 1.50 x10'3/uL 10/11/2018 6:33 AM CDT [facility] ABS. EOSINOPHILS 0.15 0.00 - 0.40 x10'3/uL 10/11/2018 6:33 AM CDT [facility] ABS. BASOPHILS 0.05 0.00 - 0.20 x10'3/uL 10/11/2018 6:33 AM CDT [facility] ABS. IMMATURE GRANULOCYTES 0.04(H) 0.00 - 0.03 x10'3/uL 10/11/2018 6:33 AM CDT [facility] ABS. NUCLEATED RBC'S 0.00 0.0 x10'3/uL 10/11/2018 6:33 AM CDT [facility] 10/11/2018 6:00 AM CDT us Festus Jocelyn DO LABORATORY Final Result Performing Organization Address [facility] de Phone Number [facility] [facility] [address] [place] [address], [place] [phone] [id number] * IRON SATURATION PANEL (FE,IBC,%SAT) (10/11/2018 6:00 AM CDT) IRON 133 50 - 170 MCG/DL 10/11/2018 7:06 AM CDT [facility] Comment:RESULT QUESTIONABLE DUE TO HEMOLYSIS, CONSIDER RECOLLECTION. IRON BINDING CAPACITY 427 250 - 450 MCG/DL 10/11/2018 7:06 AM CDT [facility] IRON SATURATION 31 % 9 7:06 AM CDT [facility] Comment:REFERENCE RANGE NOT ESTABLISHED 10/11/2018 6:00 AM CDT us Festus Jocelyn DO LABORATORY Final Result Performing Organization Address [facility] de Phone Number [facility] [address] [place] [address], [place] [phone] * Transfuse RBC (10/11/2018 5:58 AM CDT) us Festus Jocelyn DO NURSING TREATMENT ORDERABLES - B LOOD ADMIN Final Result * Transfuse RBC (10/11/2018 5:58 AM CDT) us Festus Jocelyn DO NURSING TREATMENT ORDERABLES - B LOOD ADMIN Final Result * Transfuse RBC (10/11/2018 3:42 AM CDT) us Festus Jocelyn DO NURSING TREATMENT ORDERABLES - B LOOD ADMIN Final Result * ANTIBODY INTERPRETATION (10/11/2018 12:59 AM CDT) ANTIBODY INTERPRETAION ANTI-c (RH4) IS IDENTIFIED IN THE SERUM. ANTI-c (RH4) CAN CAUSE HEMOLYTIC TRANSFUSION REACTION AND HEMOLYTIC DISEASE OF FETUS/. 20% OF DONOR BLOOD WILL BE c (RH4) ANTIGEN NEGATIVE. 10/14/2018 8:30 AM CDT [facility] Comment: IF TRANSFUSION IS REQUIRED, ADDITIONAL TIME WILL BE NEEDED TO FIND COMPATIBLE UNITS. CONTACT THE TRANSFUSION SERVICE REGARDING AVAILABILITY OF BLOOD. IF THE PATIENT IS TRANSFUSED, FUTURE REQUESTS FOR BLOOD WILL BE INDEPENDENTLY REVIEWED WITH APPROPRIATE RECOMMENDATIONS MADE. FOR FURTHER INFORMATION OR A CONSULTATION CONTACT THE TRANSFUSION SERVICE PHYSICIAN. CAN'T RULE OUT ANTI E (RH3). TRANSFUSE C (RH2) NEGATIVE AND E (RH3) NEGATIVE [facility] CROSSMATCH COMPATIBLE RED BLOOD CELL PRODUCTS. 10/11/2018 12:5 9 AM CDT Jarret Shukla MD BLOOD BANK TEST ORDERABLES F inal Result [facility] [address] [place] [address], [id number] * TYPE & SCREEN (10/10/2018 11:10 PM CDT) UNITS ORDERED 4 10/11/2018 7:17 AM CDT [facility] ABO/RH O POSITIVE 10/11/2018 12:30 AM CDT [facility] ANTIBODY SCREEN POSITIVE 9 12:30 AM CDT [facility] SAMPLE EXPIRATION 10/13/2018 10/10/2018 11:27 PM CDT [facility] ANTIBODY ID ANTI-c 10/11/2018 1:07 AM CDT [facility] BLOOD UNIT NUMBER [id number] 10/11/2018 1:07 AM CDT [facility] PRODUCT: PC LEUKOPOOR 10/11/2018 1:07 AM CDT [facility] UNIT DIVISION 10/11/2018 1:07 AM CDT [facility] BLOOD UNIT STATUS TRANSFUSED,FIN AL 10/12/2018 2:07 AM CDT [facility] TRANSFUSION STATUS OK TO TRANSFUSE 10/11/2018 1:07 AM CDT [facility] CROSSMATCH COMPATIBLE 10/11/2018 1:07 AM CDT [facility] BLOOD UNIT NUMBER [id number] 10/11/2018 1:07 AM CDT [facility] PRODUCT: PC LEUKOPOOR 10/11/2018 1:07 AM CDT [facility] UNIT DIVISION 10/11/2018 1:07 AM CDT [facility] BLOOD UNIT STATUS TRANSFUSED,FIN AL 10/12/2018 2:07 AM CDT [facility] TRANSFUSION STATUS OK TO TRANSFUSE 10/11/2018 1:07 AM CDT [facility] CROSSMATCH COMPATIBLE 10/11/2018 1:07 AM CDT [facility] BLOOD UNIT NUMBER [id number] 10/11/2018 7:44 AM CDT [facility] PRODUCT: PC LEUKOPOOR 10/11/2018 7:44 AM CDT [facility] UNIT DIVISION 10/11/2018 7:44 AM CDT [facility] BLOOD UNIT STATUS UNIT RELEASED 10/14/2018 12:02 AM CDT [facility] TRANSFUSION STATUS OK TO TRANSFUSE 10/11/2018 7:44 AM CDT [facility] CROSSMATCH COMPATIBLE 10/11/2018 7:44 AM CDT [facility] BLOOD UNIT NUMBER [id number] 10/11/2018 7:44 AM CDT [facility] PRODUCT: PC LEUKOPOOR 10/11/2018 7:44 AM CDT [facility] UNIT DIVISION 10/11/2018 7:44 AM CDT [facility] BLOOD UNIT STATUS UNIT RELEASED 10/14/2018 12:02 AM CDT [facility] TRANSFUSION STATUS OK TO TRANSFUSE 10/11/2018 7:44 AM CDT [facility] CROSSMATCH COMPATIBLE 10/11/2018 7:44 AM CDT [facility] 10/10/2018 11:1 0 PM CDT Festus Jocelyn DO BLOOD BANK TEST ORDERABLES Final Result Performing Organization Address [facility] Co de Phone Number [facility] [address] [place] [address], [id number] * CULTURE, BACTERIA, BLOOD (10/10/2018 11:10 PM CDT) SPEC DESCRIPTION BLOOD 10/10/2018 11:02 PM CDT [facility] SPECIAL REQUESTS NO SPECIAL REQUEST 10/10/2018 11:02 PM CDT [facility] CULTURE RESULT NO GROWTH 5 DAYS 10/15/2018 11:55 PM CDT [facility] BLOOD SPECIMEN OBTAINED FOR BLOOD CULTURE / Unknown 10/10/2018 11:10 PM CDT 10/10/2018 11:42 PM CDT Regalamos DO MICROBIOLOGY - GENERAL ORDERABLE S Final Result Performing Organization Address [facility] Co de Phone Number [facility] [address] [place] [address], [place] [phone] * (ABNORMAL) CBC W/DIFF AUTOMATED (10/10/2018 11:10 PM CDT) WBC 6.3 4.0 - 10.8 x10'3/uL 10/10/2018 11:35 PM CDT [facility] RBC 1.92(L) 4.10 - 5.40 x10'6/uL 10/10/2018 11:35 PM CDT [facility] HGB 5.4(LL) 12.0 - 16.0 G/DL 10/10/2018 11:35 PM CDT [facility] Comment: CRITICAL RESULT, SPECIMEN DATE, TIME WERE READ BACK BY KARAN ROMERO AT 2335 BY HNK HCT 18.0(L) 36.0 - 47.0 % 10/10/2018 11:35 PM CDT [facility] MCV 93.8 78.0 - 100.0 FL 10/10/2018 11:35 PM CDT [facility] MCH 28.1 27.0 - 31.0 PG 10/10/2018 11:35 PM CDT [facility] MCHC 30.0(L) 33.0 - 36.0 G/DL 10/10/2018 11:35 PM CDT [facility] RDW 14.0 11.5 - 14.5 % 10/10/2018 11:35 PM CDT [facility] PLT 245 150 - 350 x10'3/uL 10/10/2018 11:35 PM CDT [facility] MPV 10.6(H) 7.4 - 10.4 FL 10/10/2018 11:35 PM CDT [facility] ABS. NEUTROPHILS TOTAL 4.08 1.60 - 8.30 x10'3/uL 10/10/2018 11:35 PM CDT [facility] ABS. LYMPHOCYTES 1.27 0.80 - 4.70 x10'3/uL 10/10/2018 11:35 PM CDT [facility] ABS. MONOCYTES 0.70 0.00 - 1.50 x10'3/uL 10/10/2018 11:35 PM CDT [facility] ABS. EOSINOPHILS 0.14 0.00 - 0.40 x10'3/uL 10/10/2018 11:35 PM CDT [facility] ABS. BASOPHILS 0.03 0.00 - 0.20 x10'3/uL 10/10/2018 11:35 PM CDT [facility] ABS. IMMATURE GRANULOCYTES 0.04(H) 0.00 - 0.03 x10'3/uL 10/10/2018 11:35 PM CDT [facility] ABS. NUCLEATED RBC'S 0.00 0.0 x10'3/uL 10/10/2018 11:35 PM CDT [facility] 10/10/2018 11:1 0 PM CDT us Festus Jocelyn DO LABORATORY Final Result Performing Organization Address [facility] Co de Phone Number [facility] [address] [place] [address], [place] [phone] * (ABNORMAL) LIPASE (10/10/2018 11:10 PM CDT) LIPASE 69(L) 73 - 393 UNITS/L 10/11/2018 12:06 AM CDT [facility] 10/10/2018 11:1 0 PM CDT us Festus Jocelyn DO LABORATORY Final Result Performing Organization Address [facility] Co de Phone Number [facility] [address] [place] [address], [place] [phone] * CALCIUM, IONIZED (10/10/2018 11:10 PM CDT) CALCIUM IONIZED 1.17 1.10 - 1.40 MMOL/L 10/11/2018 12:55 AM CDT [facility] 10/10/2018 11:1 0 PM CDT us Festus Jocelyn DO LABORATORY Final Result Performing Organization Address [facility] Co de Phone Number [facility] [address] [place] [address], [place] [phone] * THYROID STIM HORMONE, TSH (10/10/2018 11:10 PM CDT) TSH 1.880 0.358 - 3.740 uIU/ML 10/11/2018 12:06 AM CDT [facility] 10/10/2018 11:1 0 PM CDT us Festus Jocelyn DO LABORATORY Final Result Performing Organization Address [facility] Co de Phone Number [facility] [address] [place] [address], [id number] * MAGNESIUM (10/10/2018 11:10 PM CDT) Pathologist [facility] MAGNESIUM 2.2 1.6 - 2.6 MG/DL 10/11/2018 12:06 AM CDT [facility] 10/10/2018 11:1 0 PM CDT Festus Jocelny DO LABORATORY Final Result Performing Organization Address [facility] de Phone Number [facility] [address] [place] [address], [id number] * LACTIC ACID (10/10/2018 11:10 PM CDT) Pathologist [facility] LACTIC ACID VENOUS 0.9 0.4 - 2.0 MMOL/L 10/10/2018 11:52 PM CDT [facility] 10/10/2018 11:1 0 PM CDT Festus Jocelyn DO LABORATORY Final Result Performing Organization Address [facility] de Phone Number [facility] [address] [place] [address], [id number] * (ABNORMAL) COMPREHENSIVE METABOLIC PANEL (10/10/2018 11:10 PM CDT) Pathologist [facility] SODIUM S/P/B 136 136 - 145 MMOL/L 10/11/2018 12:06 AM [facility] POTASSIUM S/P/B 4.0 3.5 - 5.1 MMOL/L 10/11/2018 12:06 AM [facility] CHLORIDE S/P/B 106 98 - 107 MMOL/L 10/11/2018 12:06 AM [facility] CO2 24.9 21.0 - 32.0 MMOL/L 10/11/2018 12:06 AM [facility] GLUCOSE 91 74 - 106 MG/DL 10/11/2018 12:06 AM [facility] BUN 18 7 - 18 MG/DL 10/11/2018 12:06 AM [facility] CREATININE S/P/B 0.72 0.55 - 1.02 MG/DL 10/11/2018 12:06 AM [facility] CALCIUM S/P/B 7.7(L) 8.5 - 10.1 MG/DL 10/11/2018 12:06 AM [facility] BILIRUBIN TOTAL S/P/B 0.3 0.2 - 1.0 MG/DL 10/11/2018 12:06 AM [facility] ALKALINE PHOSPHATASE S/P/B 34(L) 55 - 142 U/L 10/11/2018 12:06 AM [facility] AST 7(L) 15 - 37 U/L 10/11/2018 12:06 AM [facility] ALT 10(L) 13 - 56 U/L 10/11/2018 12:06 AM [facility] TOTAL PROTEIN S/P/B 4.9(L) 6.4 - 8.2 G/DL 10/11/2018 12:06 AM [facility] ALBUMIN S/P/B 2.8(L) 3.4 - 5.0 G/DL 10/11/2018 12:06 AM [facility] ANION GAP 5.1 5.0 - 15.0 MMOL/L 10/11/2018 12:06 AM CDT [facility] Comment:REFERENCE RANGE NOT ESTABLISHED OSMOLALITY (CALC) 283 MOSM/KG 10/11/2018 12:06 AM CDT [facility] Comment:REFERENCE RANGE NOT ESTABLISHED EGFR NON-AFR. AMER. 81(L) >90 ML/MIN/1 .73 M2 10/11/2018 12:06 AM CDT [facility] EGFR AFR. AMER. >90 >90 ML/MIN/1 .73 M2 10/11/2018 12:06 AM CDT [facility] GFR NOTES THE ESTIMATED GFR IS CALCULATED USING THE 2009 CKD-EPI EQUATION. THE FOLLOWING CATEGORIES FOR GRADING RENAL FUNCTION ARE RECOMMENDED BY THE INTERNATIONAL SOCIETY OF NEPHROLOGY (KDIGO 2012 CLINICAL PRACTICE GUIDELINE). 10/11/2018 12:06 AM CDT [facility] Comment: G1,NORMAL OR HIGH: >89 ml/min/1.73 m2 G2,MILDLY DECREASED: 60-89 ml/min/1.73 m2 G3A,MILDLY TO MODERATELY DECREASED: 45-59 ml/min/1.73 m2 G3B,MODERATELY TO SEVERELY DECREASED: 30-44 ml/min/1.73 m2 G4,SEVERELY DECREASED: 15-29 ml/min/1.73 m2 G5,KIDNEY FAILURE: <15 ml/min/1.73 m2 10/10/2018 11:1 0 PM CDT us Festus Jocelyn DO LABORATORY Final Result [facility] [address] [place] [address], [id number] * MRSA SCREENING (10/10/2018 11:04 PM CDT) SPECIMEN SOURCE RESPIRATORY, NOSE 10/10/2018 11:04 PM CDT [facility] MRSA BY PCR NASAL METHICILLIN RESISTANT STAPH AUREUS NOT DETECTED 10/11/2018 11:35 AM CDT [facility] NASAL STRUCTURE / Unknown 10/10/2018 11:04 PM CDT Festus Jocelyn DO MICROBIOLOGY - GENERAL ORDERABLE S Final Result Performing Organization Address [facility] Co de Phone Number [facility] [address] [place] [address], [id number] * (ABNORMAL) POCT glucose (10/10/2018 11:00 PM CDT) GLUCOSE POC 123(H) 70 - 109 10/11/2018 12:14 AM CDT [facility] ORDERS INTERFACE Comment:RN Notified 10/10/2018 11:0 0 PM CDT [facility] Jocelyn DO POCT ORDERABLES - DEVICE Final R esult Performing Organization Address [facility] de Phone Number [facility] ORDERS INTERFACE US * CULTURE, BACTERIA, BLOOD (10/10/2018 6:00 AM CDT) SPEC DESCRIPTION BLOOD 10/10/2018 11:02 PM CDT [facility] SPECIAL REQUESTS NO SPECIAL REQUEST 10/10/2018 11:02 PM CDT [facility] CULTURE RESULT NO GROWTH 5 DAYS 10/16/2018 11:55 PM CDT [facility] BLOOD SPECIMEN OBTAINED FOR BLOOD CULTURE / Unknown 10/10/2018 6:00 AM CDT 10/11/2018 6:51 AM CDT [facility] Jocelyn DO MICROBIOLOGY - GENERAL ORDERABLE S Final Result Performing Organization Address [facility] Co de Phone Number [facility] [address] [place] [address], [place] [phone] documented in this encounter Visit Diagnoses Diagnosis Hemorrhagic shock (CMS/HCC HHS/HCC) Other shock without mention of trauma documented in this encounter Administered Medications Inactive Administered Medications - up to 3 most recent administrations Medication Order MAR Action Action Date Dose Rate Site acetaminophen (TYLENOL) 160 MG/5ML solution 1,000 mg 1,000 mg, Oral, Once, 1 dose, On Wed10/11/18 at 0100, Maximum dose of acetaminophen is 4000 mg from all sources in 24 hours. Given 10/11/2018 1:26 AM CDT 1,000 mg acetaminophen (TYLENOL) 160 MG/5ML solution 160 mg 160 mg, Oral, Once, 1 dose, On Wed10/11/18 at 2030, Maximum dose of acetaminophen is 4000 mg from all sources in 24 hours. Given 10/11/2018 8:34 PM CDT 160 mg amiodarone (PACERONE) tablet 200 mg 200 mg, Oral, Every 3 days, First dose on Wed10/12/18 at 0900, Until Discontinued, TAKE EVERY THIRD DAY Given 10/15/2018 8:56 AM CDT 200 mg Given 10/12/2018 8:28 AM CDT 200 mg aspirin chewable tablet 81 mg 81 mg, Oral, Daily, First dose on Wed10/14/18 at 1615, Until Discontinued Given 10/15/2018 8:56 AM CDT 81 mg Given 10/14/2018 5:36 PM CDT 81 mg citalopram (CELEXA) tablet 40 mg 40 mg, Oral, Daily, First dose on Wed10/11/18 at 1500, Until Discontinued, Therapeutic interchange for escitalopram Of note, patient's home dose is 40 mg escitalopram, however spoke with Dr. Hernandez and agreed that 40 mg of citalopram is an appropriate dose while inpatient due to adverse effects. Given 10/15/2018 8:56 AM CDT 40 m g Given 10/14/2018 8:42 AM CDT 40 mg Given 10/13/2018 9:39 AM CDT 40 mg dextrose 5 %-sodium chloride 0.45 % infusion at 100 mL/hr, Intravenous, Continuous, Starting on Wed10/11/18 at 0245, Until Wed10/11/18 at 1128 New Bag 10/11/2018 3:03 AM CDT 100 mL/hr diphenhydrAMINE (BENADRYL) injection 25 mg 25 mg, Intravenous, Once, 1 dose, On Wed10/11/18 at 0300, For IV administration, give no faster than 25 mg/min. Given 10/11/2018 3:04 AM CDT 25 mg diphenhydrAMINE (BENADRYL) injection 25 mg 25 mg, Intravenous, Once, 1 dose, On Wed10/11/18 at 2030, For IV administration, give no faster than 25 mg/min. Given 10/11/2018 8:35 PM CDT 25 mg duloxetine (CYMBALTA) capsule 60 mg 60 mg, Oral, Daily, First dose on Wed10/11/18 at 1430, Until Discontinued, Swallow capsule whole or it may be opened and the contents sprinkled on applesauce. Given 10/15/2018 8:56 AM CDT 60 mg Given 10/14/2018 8:42 AM CDT 60 mg Given 10/13/2018 9:38 AM CDT 60 mg fentaNYL (SUBLIMAZE) injection 100 mcg 100 mcg, Intravenous, Once, 1 dose, On Wed10/11/18 at 1145, If intravenous (IV) route has been ordered, give over 1-2 minutes. Given 10/11/2018 11:47 AM CDT 75 mcg ferrous sulfate (65 mg elemental) tablet 325 mg 325 mg, Oral, 3 times daily with meals, First dose on Wed10/11/18 at 1700, Until Discontinued Given 10/15/2018 8:23 AM CDT 325 mg Given 10/14/2018 5:40 PM CDT 325 mg Given 10/14/2018 3:17 PM CDT 325 mg furosemide (LASIX) injection 20 mg 20 mg, Intravenous, Once, 1 dose, On Wed10/11/18 at 0600, Administer IV push 20-40mg/min. Given 10/11/2018 7:24 AM CDT 20 mg gabapentin (NEURONTIN) capsule 100 mg 100 mg, Oral, 3 times daily, First dose on Wed10/11/18 at 1600, Until Discontinued Given 10/15/2018 8:56 AM CDT 100 m g Given 10/14/2018 8:01 PM CDT 100 mg Given 10/14/2018 3:18 PM CDT 100 mg iopamidol (ISOVUE-370) 76 % injection 80 mL 80 mL, Intravenous, IMG once as needed, Contrast, 1 dose, Starting on Wed10/11/18 at 1607, Until Wed10/11/18 at 1607 Given 10/11/2018 4:07 PM CDT 80 mLs lactated ringers infusion at 75 mL/hr, Intravenous, Continuous, Starting on Wed10/10/18 at 2330, Until Wed10/11/18 at 0226 10/11/2018 12:01 AM CDT 75 mL/hr lorazepam (ATIVAN) tablet 0.5 mg 0.5 mg, Oral, 2 times daily, First dose on Wed10/11/18 at 2100, Until Discontinued Given 10/15/2018 8:55 AM CDT 0.5 mg Given 10/14/2018 8:01 PM CDT 0.5 mg Given 10/14/2018 8:42 AM CDT 0.5 mg magnesium hydroxide (MILK OF MAGNESIA) 400 MG/5ML suspension 30 mL 30 mL, Oral, Once, 1 dose, On Julee 10/13/18 at 2115, Shake Well Given 10/13/2018 9:29 PM CDT 30 mLs midazolam (VERSED) injection 5 mg 5 mg, Intravenous, Once, 1 dose, On Wed10/11/18 at 1145 Given 10/11/2018 11:47 AM CDT 5 mg pantoprazole (PROTONIX) 40 mg in sodium chloride 0.9 % 100 mL (0.4 mg/mL) infusion 8 mg/hr (20 mL/hr), Intravenous, Continuous, Starting on Wed10/10/18 at 2330, Until Wed10/11/18 at 1128 [facility] 10/11/2018 5:00 AM CDT 8 mg/hr 20 mL/hr [facility] 10/11/2018 12:01 AM CDT 8 mg/hr 20 mL/hr pantoprazole (PROTONIX) injection 40 mg 40 mg, Intravenous, 2 times daily, First dose on Wed10/11/18 at 2100, Until Discontinued, Reconstitute each 40 mg vial with 10 mL normal saline to a final concentration of 4 mg/mL. Administer intravenously over a period of a least 2 minutes. Given 10/15/2018 8:56 AM CDT 40 mg Given 10/14/2018 8:00 PM CDT 40 mg Given 10/14/2018 8:42 AM CDT 40 mg piperacillin-tazobactam (ZOSYN) 3.375 g in sodium chloride 0.9 % 50 mL IVPB 3.375 g, Intravenous, Administer over 240 Minutes, Every 8 hours, First dose (after last modification) on Wed10/12/18 at 1600, Until Discontinued New 10/15/2018 8:56 AM CDT 3.375 g 12.5 m L/hr New 10/15/2018 12:57 AM CDT 3.375 g 12.5 mL/hr New 10/14/2018 3:18 PM CDT 3.375 g 12.5 mL/hr piperacillin-tazobactam (ZOSYN) 3.375 g in sodium chloride 0.9 % 50 mL IVPB 3.375 g, Intravenous, Administer over 30 Minutes, Once, 1 dose, On Wed10/12/18 at 0945 New 10/12/2018 10:40 AM CDT 3.375 g 100 mL/ hr polyethylene glycol (GLYCOLAX) packet 1 packet 1 packet, Oral, Daily, First dose on Wed10/14/18 at 2100, Until Discontinued, Dissolve powder in 240 mL water Given 10/15/2018 8:54 AM CDT 1 packet Given 10/14/2018 8:01 PM CDT 1 packet sodium chloride 0.9% infusion at 10 mL/hr, Intravenous, Continuous, Starting on Wed10/10/18 at 2330, Until Wed10/11/18 at 0226, Infuse at TKO rate New 10/11/2018 12:06 AM CDT 10 mL/hr sucralfate (CARAFATE) 1 GM/10ML suspension 1 g 1 g, Oral, Every 6 hours scheduled (4 times per day), First dose on Wed10/11/18 at 1245, Until Discontinued, Shake Well Given 10/15/2018 5:02 AM CDT 1 g Given 10/15/2018 12:57 AM CDT 1 g Given 10/14/2018 5:36 PM CDT 1 g documented in this encounter Active and Recently Administered Medications Times are shown in CDT. Scheduled Medication Order 10/13/2018 10/14/2018 10/15/2018 amiodarone (PACERONE) tablet 200 mg 200 mg, Oral, Every 3 days, First dose on Wed10/12/18 at 0900, Until Discontinued, TAKE EVERY THIRD DAY 0856 (Given - Provider: Jocelyn Fallon, NICK) aspirin chewable tablet 81 mg 81 mg, Oral, Daily, First dose on Wed10/14/18 at 1615, Until Discontinued 1736 (Given - Provider: Beth Cosby RN) 0856 (Given - Provider: Jocelyn Fallon, NICK) citalopram (CELEXA) tablet 40 mg 40 mg, Oral, Daily, First dose on Wed10/11/18 at 1500, Until Discontinued, Therapeutic interchange for escitalopram Of note, patient's home dose is 40 mg escitalopram, however spoke with Dr. Hernandez and agreed that 40 mg of citalopram is an appropriate dose while inpatient due to adverse effects. 0939 (Given - Provider: Oksana Patterson RN) 0842 (Given - Provider: Danielle Aponte RN) 0856 (Given - Provider: Jocelyn Fallon, NICK) duloxetine (CYMBALTA) capsule 60 mg 60 mg, Oral, Daily, First dose on Wed10/11/18 at 1430, Until Discontinued, Swallow capsule whole or it may be opened and the contents sprinkled on applesauce. 0938 (Given - Provider: Oksana Patterson RN) 0842 (Given - Provider: Danielle Aponte RN) 0856 (Given - Provider: Jocelyn Fallon RN) ferrous sulfate (65 mg elemental) tablet 325 mg 325 mg, Oral, 3 times daily with meals, First dose on Wed10/11/18 at 1700, Until Discontinued 0938 (Given - Provider: Oksana Patterson RN)1310 (Given - Provider: Oksana Patterson RN)1637 (Given - Provider: Oksana Patterson RN) 0842 (Given - Provider: Danielle Aponte RN)1131 (Not Given - Provider: Danielle Aponte RN - Reason: Patient/family declined)1517 (Given - Provider: Beth Cosby, NICK)1740 (Given - Provider: Beth Cosby, NICK) 0823 (Given - Provider: Jocelyn Fallon, NICK)1114 (Not Given - Provider: Jocelyn Fallon RN - Reason: Other) gabapentin (NEURONTIN) capsule 100 mg 100 mg, Oral, 3 times daily, First dose on Wed10/11/18 at 1600, Until Discontinued 0938 (Given - Provider: Oksana Patterson RN)1637 (Given - Provider: Oksana Patterson RN)2128 (Given - Provider: Atiya Haas RN) 08 (Given - Provider: Danielle Aponte, NICK)1517 (Given - Provider: Beth Cosby RN)2000 (Given - Provider: Bill Jacobsen, RN) 0856 (Given - Provider: Jocelyn Fallon, RN) lorazepam (ATIVAN) tablet 0.5 mg 0.5 mg, Oral, 2 times daily, First dose on Wed10/11/18 at 2100, Until Discontinued 0938 (Given - Provider: Oksana Patterson RN)2128 (Given - Provider: Atiya Haas RN) 08 (Given - Provider: Danielle Aponte, NICK)2000 (Given - Provider: Bill Jacobsen, NICK) 0855 (Given - Provider: Jocelyn Fallon, NICK) magnesium hydroxide (MILK OF MAGNESIA) 400 MG/5ML suspension 30 mL (COMPLETED) 30 mL, Oral, Once, 1 dose, On Wed10/13/18 at 2115, Shake Well 2128 (Given - Provider: Atiya Haas RN) pantoprazole (PROTONIX) injection 40 mg 40 mg, Intravenous, 2 times daily, First dose on Wed10/11/18 at 2100, Until Discontinued, Reconstitute each 40 mg vial with 10 mL normal saline to a final concentration of 4 mg/mL. Administer intravenously over a period of a least 2 minutes. 0939 (Given - Provider: Oksana Patterson RN)2128 (Given - Provider: Atiya Haas RN) 08 (Given - Provider: Danielle Aponte, NICK)1999 (Given - Provider: Bill Jacobsen, NICK) 0856 (Given - Provider: Jocelyn Fallon, NICK) piperacillin-tazobactam (ZOSYN) 3.375 g in sodium chloride 0.9 % 50 mL IVPB 3.375 g, Intravenous, Administer over 240 Minutes, Every 8 hours, First dose (after last modification) on Wed10/12/18 at 1600, Until Discontinued 0036 (New Bag - Provider: Atiya Haas RN)0511 (Infusion Stop Time - Provider: Atiya Haas RN)0939 (New Bag - Provider: Oksana Patterson RN)1451 (Infusion Stop Time - Provider: Oksana Patterson RN)1638 (New Bag - Provider: Oksana Patterson RN)2120 (Infusion Stop Time - Provider: Atiya Haas RN)2341 (New Bag - Provider: Atiya Haas RN) 0421 (Infusion Stop Time - Provider: Atiya Haas RN)0842 (New Bag - Provider: Danielle Aponte, NICK)1422 (Infusion Stop Time - Provider: Beth Cosby, RN)1518 (New Bag - Provider: Beth Cosby, RN)1929 (Infusion Stop Time - Provider: Beth Cosby, RN) 0057 (New Bag - Provider: Bill Jacobsen RN)0630 (Infusion Stop Time - Provider: Bill Jacobsen RN)0856 (New Bag - Provider: Jocelyn Fallon, NICK)1256 (Due: Infusion Stop Time - Provider: Jocelyn Fallon, NICK) polyethylene glycol (GLYCOLAX) packet 1 packet 1 packet, Oral, Daily, First dose on Wed10/14/18 at 2100, Until Discontinued, Dissolve powder in 240 mL water 2000 (Given - Provider: Bill Jacobsen, NICK) 0854 (Given - Provider: Jocelyn Fallon, NICK) sucralfate (CARAFATE) 1 GM/10ML suspension 1 g 1 g, Oral, Every 6 hours scheduled (4 times per day), First dose on Wed10/11/18 at 1245, Until Discontinued, Shake Well 0053 (Not Given - Provider: Atiya Haas RN - Reason: Patient/family declined)0939 (Given - Provider: Oksana Patterson, NICK)1310 (Given - Provider: Oksana Patterson, NICK)1638 (Given - Provider: Oksana Patterson RN)2355 (Not Given - Provider: Atiya Haas RN - Reason: Patient/family declined) 0844 (Given - Provider: Danielle Aponte, NICK - Comment: time change per pt request)1131 (Given - Provider: Danielle Aponte, NICK)1736 (Given - Provider: Beth E Renovo, RN) 0057 (Given - Provider: Bill Jacobsen, RN)0502 (Given - Provider: Bill Jacobsen, RN)1114 (Not Given - Provider: Jocelyn Fallon RN - Reason: Other) documented in this encounter Care Teams Quantity Surveyor Relationship Specialty Start Date End Date Jarret Martinez MD [address] [place] [phone] PCP - General FAMILY PRACTICE 12/27/17 Go Richards MD [address] [place] [phone] INTERVENTIONAL CARDIOLOGY 12/27/17 04/23/19 documented as of this encounter
--- OUTSIDE RECORDS SUMMARY | 2024-03-20 22:46 | XMS_ITS | Encounter Summary ---
Author Organization [facility] Address [address] [place] [address]. [place] [address] [place] [address] Care Team Providers Care Blister Pack Operator Name Role Phone Jarret Kwong MD Primary Care Provider Robbin Urban MD Unavailable [phone] Reason for Visit * Reason Onset Date Comments Appointment Request 11/14/2019 f/u appt in [place] w/Dr. Hamilton Encounter Details Date Type Department Care Team (Late st Contact Info) Description 11/14/2019 [facility] [address] [place] [address] Flaquito Hamilton MD Appointment Request (f/u appt in [place]/Dr. Hamilton) Social History Tobacco Use Types Packs/Day Years [...] documented in this encounter Progress Notes * Sridevi Cui - 11/14/2019 12:32 PM CDT Sent recall letter. * Sridevi Cui - 11/14/2019 12:03 PM CDT Called Pt to schedule f/u appt w/Dr. Hamilton in [place]. Pt is former [facility]. Pt reports she has adoctor already; however, not sure who as she reports she was having a migraine. Informed her I would f/u on another day. She hung up. documented in this encounter Plan of Treatment Not on file documented as of this encounter Visit Diagnoses Not on filedocumented in this encounter Care Teams Blister Pack Operator Relationship Specialty Start Date End Date Jarret Kwong MD [address] [place] [phone] PCP - General FAMILY PRACTICE 12/27/17 Robbin Urban MD [address] [place] [address] [place] Commutator Operator CARDIOVASCULAR DISEASE 04/24/19 documented as of this encounter
--- OUTSIDE RECORDS SUMMARY | 2024-03-20 22:46 | XMS_ITS | Encounter Summary ---
Author Organization [facility] Address [address] [place] [address]. [place] [address] [place] [address] Care Team Providers Care Rfid Technician Name Role Phone Jarret Kwong MD Primary Care Provider Robbin Urban MD Unavailable [phone] Encounter Details Date Type Department Care Team (Late st Contact Info) Description 08/12/2020 Orders Only [facility] [address] [place] [address] Jarret Kwong MD [address] [place] [phone] Social History Tobacco Use Types Packs/Day Years [...] on file documented as of this encounter Results * (ABNORMAL) BASIC METABOLIC PANEL (08/12/2020 9:47 AM CDT) SODIUM S/P/B 142 136 - 145 MMOL/L 08/12/2020 10:44 AM T [facility] POTASSIUM S/P/B 4.0 3.5 - 5.1 MMOL/L 08/12/2020 10:44 AM T [facility] CHLORIDE S/P/B 105 98 - 107 MMOL/L 08/12/2020 10:44 AM T [facility] CO2 28.1 21.0 - 32.0 MMOL/L 08/12/2020 10:44 AM T [facility] GLUCOSE 94 70 - 99 MG/DL 08/12/2020 10:44 AM T [facility] Comment: FASTING GLUCOSE 100 TO 125 MG/DL IS CONSISTENT WITH IMPAIRED FASTING GLUCOSE. FASTING GLUCOSE >125 MG/DL IS CONSISTENT WITH DIABETES. RANDOM GLUCOSE >200 MG/DL WITH HYPERGLYCEMIC SYMPTOMS IS CONSISTENT WITH DIABETES. PER ADA GUIDELINES BUN 16 6 - 24 MG/DL 08/12/2020 10:44 AM CDT [facility] CREATININE S/P/B 0.78 0.55 - 1.02 MG/DL 08/12/2020 10:44 AM CDT [facility] CALCIUM S/P/B 8.7 8.4 - 10.5 MG/DL 08/12/2020 10:44 AM CDT [facility] ANION GAP 8.9 5.0 - 15.0 MMOL/L 08/12/2020 10:44 AM CDT [facility] OSMOLALITY (CALC) 295 MOSM/KG 021 10:44 AM T [facility] Comment:REFERENCE RANGE NOT ESTABLISHED EGFR NON-AFR. AMER. 72(L) >89 ML/MIN/1. 73 M2 08/12/2020 10:44 AM T [facility] EGFR AFR. AMER. 84(L) >89 ML/MIN/1. 73 M2 08/12/2020 10:44 AM CDT [facility] GFR NOTES GFR REFERENCE S: 08/12/2020 10:44 AM T [facility] Comment: THE ESTIMATED GFR IS [...] ml/min/1.73 m2 G5,KIDNEY FAILURE: <15 ml/min/1.73 m2 08/12/2020 9:47 AM CDT us Jarret Kwong MD LABORATORY Final Resul t [facility] [address] [place] [address], * VITAMIN D, 25 OH (08/12/2020 9:47 AM CDT) VITAMIN D 25 HYDROXY S/P/B 51.1 NG/ML 08/13/2020 9:36 PM CDT [facility] Comment: <10 ng/mL (Severe deficiency) 10 TO 19 ng/mL (Mild to Moderate deficiency) 20 TO 50 ng/mL (Optimum levels) 51 TO 80 ng/mL (Increased risk of hypercalciuria) >80 ng/mL (Toxicity possible) 08/12/2020 9:47 AM CDT us Jarret Kwong MD LABORATORY Final Resul t [facility] [address] [place] [address], [id number] documented in this encounter Visit Diagnoses Diagnosis Osteoporosis- Primary Osteoporosis, unspecified Vitamin D deficiency Unspecified vitamin D deficiency documented in this encounter Care Teams Rfid Technician Relationship Specialty Start Date End Date Jarret Kwong MD [address] [place] [phone] PCP - General FAMILY PRACTICE 12/27/17 Robbin Urban MD [address] [place] [address] [place] Physician Interventional Cardiologist CARDIOVASCULAR DISEASE 04/24/19 documented as of this encounter
--- OUTSIDE RECORDS SUMMARY | 2024-03-20 22:46 | XMS_ITS | Encounter Summary ---
Author Organization [facility] Address [address] [place] [address]. [place] [address] [place] [address] Care Team Providers Care Election Judge Name Role Phone Jarret Kwong MD Primary Care Provider Robbin Urban MD Unavailable [phone] Encounter Details Date Type Department Care Team (Latest Contact Info) Description 03/24/2022 Travel Social History Tobacco Use Types Packs/Day [...] Coronavirus/COVID-19? No / Unsure 03/24/2022 10:25 AM AUTOMATIC CLIPPER AND STRIPPER documented as of this encounter Functional Status [...] on filedocumented in this encounter Care Teams Election Judge Relationship Specialty Start Date End Date Jarret Kwong MD [address] [place] [phone] PCP - General FAMILY PRACTICE 12/27/17 Robbin Urban MD [address] [place] [phone] [place] [employer] Prosthetics Assistant CARDIOVASCULAR DISEASE 04/24/19 documented as of this encounter
--- OUTSIDE RECORDS SUMMARY | 2024-03-20 22:46 | XMS_ITS | Encounter Summary ---
Author Organization [facility] Address [address] [place] [address]. [place] [address] [place] [address] Care Team Providers Care Paper Folder Name Role Phone Jarret Kwong MD Primary Care Provider [phone] Robbin Urban MD Unavailable [phone] Encounter Details Date Type Department Care Team (Late st Contact Info) Description 05/07/2020 Orders Only [facility] [address] [place] [address] Jarret Kwong MD [address] [place] [phone] Social History Tobacco Use Types Packs/Day [...] Senile osteoporosis- Primary documented in this encounter Care Teams Paper Folder Relationship Specialty Start Date End Date Jarret Kwong MD [address] [place] [phone] PCP - General FAMILY PRACTICE 12/27/17 Robbin Urban MD [address] [place] [phone] [place] [employer] Financial Specialist CARDIOVASCULAR DISEASE 04/24/19 documented as of this encounter
--- OUTSIDE RECORDS SUMMARY | 2024-03-20 22:46 | XMS_ITS | Encounter Summary ---
Author Organization [facility] Address [address] [place] [address]. [place] [address] [place] [address] Care Team Providers Care Central Sterile Supply Technician Name Role Phone Jarret Kwong MD Primary Care Provider [phone] Robbin Urban MD Unavailable [phone] Reason for Visit * Reason Onset Date Comments Letter 04/24/2019 care reassignmen t letter Encounter Details Date Type Department Care Team (Late st Contact Info) Description 04/24/2019 Telephone [employer] [facility] [address] [place] [address] Go Hanna MD Letter (care reassignment letter) Social History Tobacco Use Types Packs/Day Years [...] Ramirez RN Active documented in this encounter Progress Notes * Nimco Villela - 04/24/2019 12:[address] Hanna patient reassigned to Dr. Urban to be seen in [place]. Recall has been updated. 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
--- OUTSIDE RECORDS SUMMARY | 2024-03-20 22:46 | XMS_ITS | Encounter Summary ---
Author Organization [facility] Address [address] [place] [address]. [place] [address] [place] [address] Care Team Providers Care Planning Consultant Name Role Phone Jarret Kwong MD Primary Care Provider Robbin Urban MD Unavailable [phone] Encounter Details Date Type Department Care Team (Latest Contact Info) Description 10/08/2022 Travel Social History Tobacco Use Types Packs/Day [...] place to sleep or slept in a senior living (including now)? No 10/09/2022 Comments No Sex [...] on filedocumented in this encounter Care Teams Planning Consultant Relationship Specialty Start Date End Date Jarret Kwong MD [address] [place] [phone] PCP - General FAMILY PRACTICE 12/27/17 Robbin Urban MD [address] [place] [phone] [place]rette CARDIOVASCULAR DISEASE 04/24/19 documented as of this encounter
--- OUTSIDE RECORDS SUMMARY | 2024-03-20 22:46 | XMS_ITS | Encounter Summary ---
Author Organization [facility] Address [address] [place] [address]. [place] [address] [place] [address] Care Team Providers Care Hollow Handle Knife Assembler Name Role Phone Jarret Kwong MD Primary Care Provider Robbin Urban MD Unavailable [phone] Encounter Details Date Type Department Care Team (Latest Contact Info) Description 12/25/2021 Travel Social History Tobacco Use Types Packs/Day [...] on filedocumented in this encounter Care Teams Hollow Handle Knife Assembler Relationship Specialty Start Date End Date Jarret Kwong MD [address] [place] [phone] PCP - General FAMILY PRACTICE 12/27/17 Robbin Urban MD [address] [place] [address] [place] Upkeep Worker CARDIOVASCULAR DISEASE 04/24/19 documented as of this encounter
--- OUTSIDE RECORDS SUMMARY | 2024-03-20 22:46 | XMS_ITS | Encounter Summary ---
Author Organization [facility] Address [address] [place] [address]. [place] [address] [place] [address] Care Team Providers Care Tearer Name Role Phone Jarret Martinez MD Primary Care Provider Go Richards MD Unavailable Unavailable Reason for Visit * Auth/Cert Specialty Diagnoses / Procedures Referred By Contac t Referred To Contact Diagnoses HEMORRHAGIC SHOCK ANEMIA Hemorrhagic shock (CMS/HCC) Hemorrhagic shock (CMS/HCC) Procedures GENERAL Referral ID Status Reason Start Date Expiration Date Visits Re quested Visits Authorized [id number] 1 1 Encounter Details Date Type Department Care Team (Late st Contact Info) Description 10/11/2018 3:00 PM CDT - 10/11/2018 4:15 PM CDT Surgery [facility] Endo/GI [address] [place] [address] Samm Graham MD [facility] [address] [address] EGD WITH BIOPSY Surgery Details Date/Time Status Location OR Service Patient Class Case Class Case Type Trauma Case? 10/11/2018 3:00 PM Posted [facility] GI Virtual Procedure ICU - GI Virtual Gastroenterology Inpatient No Panel 1 Procedure LRB Anes Op Region Wound Class Comments EGD WITH BIOPSY N/A Monitor Anesthesia Care N/A Surgeon Surgeon Role Service Panel Samm Graham MD Primary Gastroenterology 1 documented in this encounter Social History Tobacco Use Types Packs/Day Years Used Date Smoking Tobacco: Never Smokeless Tobacco: Never Alcohol Use Standard Drinks/Week Comments No 0 (1 standard drink = 0.6 oz pur e alcohol) AUDIT-C Answer Date Recorded Frequency of Alcohol Consumption Never 10/10/2018 Average Number of Drinks Not on file Frequency of Binge Drinking Not on file 11/2018 Comments No Sex and Gender Information Value Date Recorded Sex Assigned at Not on file Legal Sex Female 12:12 AM CDT Gender Identity Not on file Sexual Orientation Not on file documented as of this encounter Last Filed Vital Signs Vital Sign Reading Time Taken Comments Blood Pressure 125/52 10/11/2018 3:30 PM CDT Pulse 77 10/11/2018 3:30 PM CDT Temperature 37.1 ??C (98.8 ??F) 10/11/2018 1 2:00 PM CDT Respiratory Rate 22 10/11/2018 3:30 PM CDT Oxygen Saturation 94% 10/11/2018 3:30 PM CDT Inhaled Oxygen Concentration - - Weight 67.1 kg (147 lb 14.9 oz) 019 11:04 PM CDT Height 160 cm (5' 3 ) 10/10/2018 11:04 PM CDT Body Mass Index 26.09 10/14/2018 [...] Haas RN Active documented in this encounter Discharge Summaries * Lourdes Foster MD - 10/15/2018 11:33 AM CDT Physician Discharge Summary Patient ID: Juana Klein [id number] 78-year-old 1940 Primary care physician:JARRET MARTINEZ MD [...] remote past presents to the outside ED [[facility]] with chief compliant of feeling weak. Patient [...] seen by PT and OT they recommended nursing home therapy at rehab which was arranged. Patient's PCP notified to Doc Vinny. Patient discharged in stable condition with stable vital signs after clearance from all the consulting service. Code Status: Full Code Procedure EGD WITH BIOPSY Procedure Note ?? Juana Klein 10/10/2018 - 10/11/2018 ? Surgeon(s): Samm Graham MD ?? Cannon [employer] Direction Specialist: GI Nurse: Cher Davis RN ?? Pre-Op [...] chest for additional description of pulmonary findings. Electronically SignedBy: Ollie Roper MD on 10/11/2018 4:26 PM Interpreted By: Ollie Roper MD, 10/11/2018 4:20 [...] Adryan Atwood, 10/10/2018 5:14 PM Disposition: [facility] Patient Instructions: Current Discharge Medication List [...] stools or any other signs of bleeding. [facility] [address], [address] [facility] [address] Follow up in 2 week(s) Jarret Martinez MD [address] [facility] [address] Follow up in 3 day(s) Nina Bal MD [address] [facility] [address] [facility] [address] Follow up in 1 month(s) Martina Cerna MD [address] [facility] [address] Follow up in 1 month(s) or as needed Go Richards MD [address] [facility] [address] [facility] [address] Follow up in 2 week(s) Discharge time [...] stools or any other signs of bleeding. [facility] [address], [address] [facility] [address] Follow up in 2 week(s) Jarret Martinez MD [address] [facility] [address] Follow up in 3 day(s) Nina Bal MD [address] [facility] [address] [facility] [address] Follow up in 1 month(s) Martina Cerna MD [address] [address] Follow up in 1 month(s) or as needed Go Richards MD [address] [facility] [address] [facility] [id number] Follow up in 2 week(s) * Attachments The following attachments cannot be sent through Care Everywhere. * Bloody Stools Discharge Instructions, Adult (Bolivian) documented in this encounter Medications at Time [...] Doc to Doc has been completed and [facility] can accept today. Please fax d/c orders to #[phone]. Nurse to Nurse #[phone] ext [phone]. Pt's daughter will transport. Pt needs to be [facility] by 2:00pm at the latest for them to accept today. RN is aware. * Carri Griffiths - 10/15/2018 9:26 AM CDT Hospitalist states Pt could possibly be ready to d/c today to [facility]. Real Estate Leasing Manager spoke with Radha at the [facility]. They are requesting updated notes to be faxed (done) and a doc to doc to be called to Juanita Barboza at #[phone] ext [phone] prior to accepting Pt. Dr[address] Foster is [...] Musculoskeletal: Denies: Back Pain Neurologic: : Oriented [id number]: Confusion Hematologic/Lymphatic: Denies: Easy Bleeding PHYSICAL EXAMINATION: [...] Component Value Units Date/Time CULTURE, BACTERIA, BLOOD [[id number]] Collected: 10/10/18 2310 Order Status: Completed Lab Status: Preliminary result Updated: 10/11/18 2347 Specimen: BLOOD Spec. Description BLOOD Special Requests: NO SPECIAL REQUEST Culture Result: NO GROWTH 1 DAY MRSA SCREENING [[id number]] Collected: 10/10/18 2304 Order Status: Completed Lab Status: Final result Updated: 10/11/18 1135 Specimen: NASAL SPECIMEN SOURCE RESPIRATORY, NOSE MRSA BY PCR METHICILLIN RESISTANT STAPH AUREUS NOT DETECTED OCCULT BLOOD, FECES [[id number]] Order Status: Canceled Lab Status: No result Specimen: STOOL CULTURE URINE [[id number]] Collected: 10/10/18 1805 Order Status: Completed Lab Status: Final result Updated: 10/11/18 213 Specimen: URINE, CLEAN CATCH Spec. 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 Pt presents with SOB with activity, decreased [...] form was reviewed with patient and/or patient???s patient accounting representative by Kimberlee Gerard. The form was initialed by patient and/or patient???s patient accounting representative as having been received and understood. [...] Daily Lloyd Hernandez MD 40 mg at 10/14/18841 ??? duloxetine (CYMBALTA) capsule 60 mg 60 [...] 0.9 % 50 mL IVPB 3.375 g [id number] Lourdes Foster MD 12.5 mL/hr at 10/14/18841 3.375 g at 10/14/18841 ??? sucralfate (CARAFATE) 1 GM/10ML suspension 1 g 1 g Oral 4 times per day Samm Graham MD 1 g at 10/14/18 0844 Vitals: 10/14/18 0757 BP: 105/57 Pulse: 94 [...] Richards MD - 10/14/2018 5:59 PM CDT IGO MD, performed an examination of the patient and discussed the management with the Advanced Practice Provider (OJANNA). I reviewed the JOANNA's progress note and [...] understands GO RICHARDS MD * Vero Holman, BLACK TOP ROLLER - 10/14/2018 8:00 AM CDT PT Treatment Discharge Recommendation: Swing bed unit Activity Recommendation for bag shaker: Pt is currently an assist of 1 [...] Musculoskeletal: Denies: Back Pain Neurologic: : Oriented [id number]: Confusion Hematologic/Lymphatic: Denies: Easy Bleeding PHYSICAL EXAMINATION: [...] not displayed. Recent Labs Lab 10/10/18 1718 10/10/180 10/11/18 0600 10/12/18 0957 NA 130* 136 [...] Component Value Units Date/Time CULTURE, BACTERIA, BLOOD [[id number]] Collected: 10/10/182309 Order Status: Completed Lab Status: Preliminary result Updated: 10/11/182346 Specimen: BLOOD Spec. Description BLOOD Special Requests: NO SPECIAL REQUEST Culture Result: NO GROWTH 1 DAY MRSA SCREENING [[id number]] Collected: 10/10/18 2304 Order Status: Completed Lab Status: Final result Updated: 10/11/18 1135 Specimen: NASAL SPECIMEN SOURCE RESPIRATORY, NOSE MRSA BY PCR METHICILLIN RESISTANT STAPH AUREUS NOT DETECTED OCCULT BLOOD, FECES [[id number]] Order Status: Canceled Lab Status: No result Specimen: STOOL CULTURE URINE [[id number]] Collected: 10/10/18 1805 Order Status: Completed Lab Status: Final result Updated: 10/11/18 2130 Specimen: URINE, CLEAN CATCH Spec. Description URINE CLEAN CATCH Special Requests: NO SPECIAL REQUEST Culture Result: NO GROWTH (< OR = 1,000 CFU/ML) CULTURE, BACTERIA, BLOOD [[id number]] Collected: 10/10/18 0600 Order Status: Completed Lab [...] 11:34 AM CDT DISCHARGE PLAN: SWING BED has spoken to patient after a recommendation of SWB was made by therapy,. Patient is open to going and reqested that referrals be sent to [facility], [facility]. Referrals sent and OBRA request sent. * Marlene Santos PA-C - 10/13/2018 10:31 AM CDT Images from the original note were not included. Progress Note ID: Juana Klein is a 78-year-old female [facility] with Dr. Richards : 1940 JARRET [...] Roper MD, 10/11/2018 4:20 PM ASSESSMENT/PLAN Juana Klein is a 78-year-old female,with a past medical history of chronic iron deficiency anemia on iron supplements, A. fib on Pradaxa, GERD, prior history of ulcerative disease who was transferred from [facility] to [facility] for found anemia (hemoglobin 4.3) and orthostatics. Patient was transfused with 3 units and subsequent GI endoscopic evaluation revealed blood on the vocal cords and CTA chest showed diffuse groundglass opacities in the right upper lung. [facility] Pulmonology was consulted for evaluation of CAP [...] resulved. - Patient to follow up with [facility] Pulm Clinic in [place] in [address] Please have patient call [phone] to schedule appointment. ? Thank you for consulting [facility] Pulmonology. The patient was discussed with [...] or wet respiration. 10/12/18 1200 Therapy Visit SPED TEACHER Received on 10/12/18 Subjective Patient was alert and attempting to order lunch. Reason for Admission Hemorrhagic shock; chronic anemia and progressive weakness. Comorbidities Relevant for SPED TEACHER Chronic afib, PFO, GERD, anxiety disorder, migraine Prior Level of Function Patient states she has no swallowing difficulty pre-morbidly. Verified Two Patient Identifiers Yes Patient consents to Therapy Yes Time Calculation Start Time 1232 Precautions Precautions Fall risk Instructed on Precautions Yes;Needs reinforcement and education Pain Pain Patient does not offer or c/o pain SPED TEACHER Recommendations Recommendations No skilled SPED TEACHER Recommended Solid Diet Regular Recommended Liquid Consistency Thin Recommended Medication Form Whole Plan Progress Discontinue SPED TEACHER If this is the last treatment note, [...] Musculoskeletal: Denies: Back Pain Neurologic: : Oriented [id number]: Confusion Hematologic/Lymphatic: Denies: Easy Bleeding PHYSICAL EXAMINATION: [...] Component Value Units Date/Time CULTURE, BACTERIA, BLOOD [[id number]] Collected: 10/10/18 2310 Order Status: Completed Lab Status: Preliminary result Updated: 10/11/18 2347 Specimen: BLOOD Spec. Description BLOOD Special Requests: NO SPECIAL REQUEST Culture Result: NO GROWTH 1 DAY MRSA SCREENING [[id number]] Collected: 10/10/18 2304 Order Status: Completed Lab Status: Final result Updated: 10/11/18 1135 Specimen: NASAL SPECIMEN SOURCE RESPIRATORY, NOSE MRSA BY PCR METHICILLIN RESISTANT STAPH AUREUS NOT DETECTED OCCULT BLOOD, FECES [[id number]] Order Status: Canceled Lab Status: No result Specimen: STOOL CULTURE URINE [[id number]] Collected: 10/10/18 1805 Order Status: Completed Lab Status: Final result Updated: 10/11/18 2130 Specimen: URINE, CLEAN CATCH Spec. Description URINE CLEAN CATCH Special Requests: NO SPECIAL REQUEST Culture Result: NO GROWTH (< OR = 1,000 CFU/ML) CULTURE, BACTERIA, BLOOD [[id number]] Collected: 10/10/18 0600 Order Status: Completed Lab Status: Preliminary result Updated: 10/11/18 4797 Specimen: BLOOD Spec. Description BLOOD Special Requests: [...] 40 mg 40 mg Oral Daily Lloyd MD David 40 mg at 10/12/18827 ??? duloxetine (CYMBALTA) capsule 60 mg 60 mg Oral Daily Lloyd MD David 60 mg at 10/12/18826 ??? ferrous sulfate (65 mg elemental) tablet 325 mg 325 mg Oral TID WC Lloyd MD David 325 mg at 10/12/18827 ??? gabapentin (NEURONTIN) capsule 100 mg 100 mg Oral TID Lloyd MD David 100 mg at 10/12/18826 ??? lorazepam (ATIVAN) tablet 0.5 mg 0.5 mg Oral BID Lloyd MD David 0.5 mg at 10/12/18826 ??? pantoprazole (PROTONIX) injection 40 mg 40 mg Intravenous BID Lloyd MD David 40 mg at 10/12/18827 ??? piperacillin-tazobactam (ZOSYN) 3.375 g in sodium chloride 0.9 % 50 mL IVPB 3.375 g [id number] Fawnessa Foster MD ??? sucralfate (CARAFATE) 1 GM/10ML [...] Transesophageal Echocardiography Report Pat.Name: JUANA KLEIN Pat.ID: [id number] .Date: 10/03/2018 Dom.: [id number] VINCENT Exam Time: 9:50:00 AM Study Type:TRANSESOPHAGEAL ECHO (WALDO) Height: 157cm Weight: 61kg BSA: 1.61 m2 Age: 11 1940,78Y Sex: FEMALE BP: 110/50 HR: 60 bpmSonogrphr: Katharina Sky RDCS Pat. Stat.:Outpatient Room: CVD CPT: 87227 [id number] Reason for Study:MR Procedures:2D, 3 Dimensional imaging with full Doppler and color interigation, Doppler, Color Flow, Intraveneous saline contrast was used to help determine presence of intracardiac shunting., Transesophageal Race: W ++++++++++++++++++++++++++++++++++++ SUMMARY: +++++++++++++++++++++++++++++++ +++++ -Normal left ventricular cavity size with normal [...] pronounced at the medial aspect. There appears lily some thinning of the medial aspect of A2, and the medial aspect of P2, where most of the regurgit ation occurs. I do not see any torn [...] up to 4.6 cm. There is mild annularcalcification. -Mild tricuspid regurgitation; sclerotic aortic valve with [...] so. Comment: This patient's mitral orifice and annular size is very small, which is a contraindication to the MitraClip procedure. We could do CT modeling to see if she would be a candidate for an Dawn James TMVR, or an AltaValve, or a Tendyne valve. We will discuss in the Structural Heart group [...] the aorta was visualized. The scope was withdrawnunder continuous suction. The patient tolerated the procedure well without any apparent complications. LV: The left ventricular size is normal. The left ventricular systolic function is normal. Estimated left ventricular ejection fraction is 60- 65%. Mild concentric left ventricular hypertrophy. WM:Wall motion appears normal in all segments. LVOT: [...] ++++++++++++++++++++++++++++++++++++ MEASUREMENTS: ++++++++++++++++++++++++++++++++++++ 2D Ventricular Septum IVSd 1.79cm DOPPLER MV Forward Flow MV mnPG 2 mmHg MV pkPG 4 mmHg LA QLab HM Left Atrium Min 48 ml Left Atrium Max 54 ml/m2 Left Atrium Max 86 ml Left Atrium Eje 44 % LV QLab Patient Height 157 [place] 74475 cm2 Patient Weight 79623 g LV QLab HM LVEF 68 % Left Ventricula 172 g SV 64 ml CI 2.66 l/min/m2 Left Ventricula 95 ml Left Ventricle 60 % LV Base to Charmco 8.5 cm Left Ventricle 30 % LV Baseto Charmco 6.4 cm Left Ventricle 54 % Left [...] sign off. SAMM GRAHAM MD 10/12/2018 * Marlene Santos PA-C - 10/12/2018 11:23 AM CDT Images from the original note were not included. Progress Note ID: Juana Klein is a 78-year-old female [facility] with Dr. Richards : 1940 JARRET [...] Recommendation: Swing bed unit Activity Recommendation for bag shaker: up with 1 with 2WW and gait [...] to living area Prior Function Level of Solen Independent with ADLs;Independent with functional transfers;Independent with [...] not activated 2/2 no plug in, told DATA STEWARD) * Mago Bear RN - 10/11/2018 3:21 PM CDT [facility] accepted pt, pending face to face by provider on DC. * Lloyd Hernandez MD - 10/11/2018 1:[address] [facility] Critical [facility] Medicine 26/10 Pager: [phone] Reason for ICU admission: Hemoglobin of 4.3 Chief Complaint: Generalized weakness HPI: Juana Klein is a 78-year-old female admitted 10/10/2018. Juana Klein is a 78-year-old lady with know past medical history pertinent of chronic anemia and PUD in remote past presents to the outside ED [[facility]] with chief compliant of feeling weak.Symptoms started [...] Goal blood glucose less than 180. Disposition: [facility] today. LINES and TUBES: Central line:- [...] %. 24 hour BP and temperature range @[id number]@ Temp (24hrs), Av.6 ??F (37 ??C), Min:97.9 [...] SCr of 0.75 mg/dL). LFTs: Recent Labs 10/10/18171710/10/18 231 ALT 13* 10* AST 8* 7* LIPASE -- 69* CBC: Recent Labs 10/10/18171710/10/18230910/11/18 0600 10/11/18 1005 WBC 6.3 6.3 7.2 -- HGB 4.3* 5.4* 9.1* 7.0* HCT 14.0* 18.0* 27.7* 22.8* PLT 245 245 218 -- MCV 92.7 93.8 89.1 -- Coagulation: Recent Labs 10/10/18 1718 INR 1.1 Recent Labs Lab 10/10/18 1718 TROP <0.017 ABG: No results found for: BASEEXCESS Central VBG: No components found for: PHMIXEDVEN, LS9OLSHBHE, TZH2ZQUPNQ, FYI2WWMZD, GX1RUJC Lactic acid: No components found for: LACTATE Microbiology Results (last 14 days) Procedure Component Value Units Date/Time CULTURE, BACTERIA, BLOOD [[id number]] Collected: 10/10/18 2310 Order Status: Completed Lab Status: In process Updated: 10/10/18 2343 Specimen: BLOOD MRSA SCREENING [[id number]] Collected: 10/10/18 2304 Order Status: Completed Lab Status: Final result Updated: 10/11/18 1135 Specimen: NASAL SPECIMEN SOURCE RESPIRATORY, NOSE MRSA BY PCR METHICILLIN RESISTANT STAPH AUREUS NOT DETECTED OCCULT BLOOD, FECES [[id number]] Order Status: Canceled Lab Status: No result Specimen: STOOL CULTURE URINE [[id number]] Collected: 10/10/18 1805 Order Status: Completed Lab Status: In process Updated: 10/10/18 1817 Specimen: URINE, CLEAN CATCH CULTURE, BACTERIA, BLOOD [[id number]] Collected: 10/10/18 0600 Order Status: Completed Lab Status: In process Updated: 10/11/18 0651 Specimen: BLOOD Radiology: - Lloyd Hernandez MD Pulmonary and Critical Care Medicine [facility] [employer] [place], [place] Pager# [phone] Office# Office: #[phone] * Yris Ramirez RN - 10/11/2018 12:04 PM CDT [facility] NOTE: Referral received from Katherine Mercedes RN, CM. [facility] would be able to accept if the discharging MD would enter orders for HHS, Face to Face for HHS @ the time of discharge. CM/AUNDREA would need to notify [facility] of the discharge. * Mago Bear [...] Dressing Independent Behavior Oriented Communication Talks;Understands speaking;Understands [place] Socioeconomic Needs Caregiver Needed No At Risk [...] No Legal Information Legal forms Power of Upholstery Repairer for health care Power of Upholstery Repairer Healthcare Status Activated Discharge Planning Living Arrangements Alone Support Systems Children;Family members Type of Residence Private residence Assistance Needed No Patient expects to be discharged to: Home (with - [facility]) S/w pt in room. [facility] is able to afford medicaitons. Does not drive self, but takes [employer] or family transports for medical appts and other needs. Dtr does grocery shopping for pt. Pt otherwise independent with ADLs. Agreeable to if needed. [facility] has had [facility] in past. Dtr to transport on d/c. Referral sent to [facility]. * Karan Hubbard RN - 10/11/2018 7:59 [...] remote past presents to the outside ED [[facility]] with chief compliant of feeling weak.Symptoms started [...] 146/62 138/57 Pulse: 79 73 73 Resp: Temp: 98.4 ??F (36.9 ??C) 97.3 ??F [...] 18.0* PLT 245 245 Recent Labs Lab 10/10/18171710/10/18 2310 NA 130* 136 K 4.1 4.0 CL 98 106 CO2 26.6 24.9 AGAP 5.4 5.1 BUN 24 18 CR 0.89 0.72 GFRNON 63* 81* GFR 72* >90 GLU 98 91 CA 7.6* 7.7* TP 5.0* 4.9* ALB 2.6* 2.8* TBIL 0.2 0.3 ALKP 34* 34* AST 8* 7* ALT 13* 10* Recent Labs Lab 10/10/18 1718 PTT 51.9* INR 1.1 IMAGING PCXR (10/10/18) [...] 10/10/2018 - 10/11/2018 Surgeon(s): Samm Graham MD [employer] Specialist: GI Nurse: Cher Davis RN Pre-Op Diagnosis: [...] PM CDTAssociated Order(s): IP CONSULT TO PULMONOLOGY [facility] Pulmonology CONSULT NOTE Attending Provider: Lourdes Foster MD PCP: JARRET MARTINEZ MD Reason for Admission: Hemorrhagic shock (CMS/HCC) Reason for Consult: Community acquired pneumonia and to rule out pulmonary hemorrhage HPI Ms. Klein, a 78-year-old old lady with a past medical history of chronic iron deficiency anemia oniron supplements, A. fib on Pradaxa, GERD, prior history of ulcerative disease who was transferred from [facility] to [facility] for found anemia (hemoglobin 4.3) and orthostatics. Patient was transfused with 3 units and subsequent GI endoscopic evaluation revealed blood on the vocal cords and CTA chest showed diffuse groundglass opacities in the right upper lung. [facility] Pulmonology wasconsulted for evaluation of CAP [...] a smoking history. She presented to the [place] emergency department, hemoglobin was at 4.3 which point she was transfused with 3 units of blood and transferred to [facility] for further management. Here hemoglobinis stayed stable [...] Net -1400 ml Labs: Recent Labs Lab 10/10/18171710/10/18230910/11/1859910/11/18 1530 10/11/18 2344 10/12/18 0956 WBC 6.3 [...] this interval not displayed. Recent Labs Lab 10/10/18171710/10/18230910/11/1859910/12/18 0957 NA 130* 136 135* 135* K [...] of ulcerative disease who was transferred from [facility] to [facility] for found anemia (hemoglobin 4.3) and orthostatics. [...] per primary team Thank you for consulting [facility]. The patient was discussed with and seen by Dr. Bal on rounds. We will continue to follow. DAKSHA CLEMENT MD 10/12/2018 Cosigned by Nina Bal MD at 10/12/2018 3:10 PM CDT Associated attestation - Nina Bal MD - 10/12/2018 3:10 PM CDT Teaching Physician - NINA Sim MD, performed a History and Physical examination [...] new upper airway concerns Staff: Nehemiah Dailey 5370 HPI: Juana Klein is an 78-year-old female [...] at 10/13/2018 1:37 PM CDT * Marlene Rothman RONAN Santos - 10/11/2018 2:28 PM CDTAssociated Order(s): IP CONSULT TO CARDIOLOGY Images from the original note were not included. Consult Note [facility] with Dr. Richards Primary Main Line Assembler: Dr. Richards CC: Atrial fib, anticoag recs [...] twice daily, duloxetine, escitalopram, ferrous sulfate, gabapentin, [place], lansoprazole, Lidoderm, lorazepam, omeprazole, potassium chloride 20 [...] to 65%.2. Negative stress echo for ischemia. [facility] consultation was requested by GI/ICU service [...] Component Value Units Date/Time CULTURE, BACTERIA, BLOOD [[id number]] Collected: 10/10/18 2310 Order Status: Completed Lab Status: In process Updated: 10/10/18 2343 Specimen: BLOOD MRSA SCREENING [[id number]] Collected: 10/10/18 2304 Order Status: Completed Lab Status: Final result Updated: 10/11/18 1135 Specimen: NASAL SPECIMEN SOURCE RESPIRATORY, NOSE MRSA BY PCR METHICILLIN RESISTANT STAPH AUREUS NOT DETECTED OCCULT BLOOD, FECES [[id number]] Order Status: Canceled Lab Status: No result Specimen: STOOL CULTURE URINE [[id number]] Collected: 10/10/18 1805 Order Status: Completed Lab Status: In process Updated: 10/10/18 1817 Specimen: URINE, CLEAN CATCH CULTURE, BACTERIA, BLOOD [[id number]] Collected: 10/10/18 0600 Order Status: Completed Lab [...] remote past presents to the outside ED [[facility]] with chief compliant of feeling weak. Symptoms [...] Transesophageal Echocardiography Report Pat.Name: JUANA KLEIN Pat.ID: [id number] .Date: 10/03/2018 Refer.: [id number], LOGAN WADSWORTH Exam Time: 9:50:00 AM Study Type:TRANSESOPHAGEAL ECHO (WALDO) Height: 157cm Weight: 61kg BSA: 1.61 m2 Age: 11 1940,78Y Sex: FEMALE BP: 110/50 HR: 60 bpm Sonogrphr: Katharina Sky RDCS Pat. Stat.:Outpatient Room: CVD CPT: 60666 [id number] Reason for Study:MR Procedures:2D, 3 Dimensional imaging [...] mitral annulus. Myxomatous degeneration of mitral valve. Themean gradient across the mitral valve is 2 at a heart rate of 63. The mitral valve area by 3D planimetry is 2.8cm^2. Spectral Doppler of the pulmonary veins demonstrates systolic flow reversal which indicates severe mitral regurgitation. Septal to leaflet coaptation distance is 4.6cm. The posteriorleaflet measures 8mm. PV: The pulmonic valve is normal There is trace pulmonic regurgitation TV: Mild tricuspid regurgitation. Moderate thickening of tricuspid valve leaflets. No evidence of tricuspid valve stenosis. ++++++++++++++++++++++++++++++++++++ WALDO: ++++++++++++++++++++++++++++++++++++ PreTEE BP HR Post WALDO BP HR 110/50 [...] QLab Patient Height 157 cm Body SurfaceAr 26887 cm2 Patient Weight 38784 g LV QLab HM LVEF 68 % Left Ventricula 172 g SV 64 ml CI 2.66 l/min/m2 Left Ventricula 95 ml Left Ventricle 60 % LV Base to Charmco 8.5 cm Left Ventricle 30 % LV Base to Charmco 6.4 cm Left Ventricle 54 % Left [...] Case Request Routine [facility] until 10/11/2018 documented as of [...] - 16.0 G/DL 10/15/2018 11:25 AM CDT [facility] HCT 29.9(L) 36.0 - 47.0 % 10/15/2018 11:25 AM CDT [facility] 10/15/2018 8:18 AM CDT Lourdes Foster MD LABORATORY Final Result [facility] [address] [place] [address], [phone] * (ABNORMAL) COMPREHENSIVE METABOLIC PANEL (10/15/2018 8:18 AM CDT) SODIUM S/P/B 135(L) 136 - 145 MMOL/L 10/15/2018 12:47 PM CDT [facility] POTASSIUM S/P/B 3.6 3.5 - 5.1 MMOL/L 10/15/2018 12:47 PM CDT [facility] CHLORIDE S/P/B 102 98 - 107 MMOL/L 10/15/2018 12:47 PM CDT [facility] CO2 25.4 21.0 - 32.0 MMOL/L 10/15/2018 12:47 PM CDT [facility] GLUCOSE 90 74 - 106 MG/DL 10/15/2018 12:47 PM CDT [facility] BUN 9 7 - 18 MG/DL 10/15/2018 12:47 PM CDT [facility] CREATININE S/P/B 0.65 0.55 - 1.02 MG/DL 10/15/2018 12:47 PM CDT [facility] CALCIUM S/P/B 7.7(L) 8.5 - 10.1 MG/DL 10/15/2018 12:47 PM CDT [facility] BILIRUBIN TOTAL S/P/B 0.5 0.2 - 1.0 MG/DL 10/15/2018 12:47 PM CDT [facility] ALKALINE PHOSPHATASE S/P/B 61 55 - 142 U/L 10/15/2018 1:01 PM CDT [facility] AST 6(L) 15 - 37 U/L 10/15/2018 12:47 PM CDT [facility] ALT 10(L) 13 - 56 U/L 10/15/2018 12:47 PM CDT [facility] TOTAL PROTEIN S/P/B 5.8(L) 6.4 - 8.2 G/DL 10/15/2018 12:47 PM CDT [facility] ALBUMIN S/P/B 2.7(L) 3.4 - 5.0 G/DL 10/15/2018 12:47 PM CDT [facility] ANION GAP 7.6 5.0 - 15.0 MMOL/L 10/15/2018 12:47 PM CDT [facility] Comment:REFERENCE RANGE NOT ESTABLISHED OSMOLALITY (CALC) 278 MOSM/KG 10/15/2018 12:47 PM CDT [facility] Comment:REFERENCE RANGE NOT ESTABLISHED EGFR NON-AFR. AMER. 86(L) >90 ML/MIN/1 .73 M2 10/15/2018 12:47 PM T [facility] EGFR AFR. AMER. >90 >90 ML/MIN/1 .73 M2 10/15/2018 12:47 PM CDT [facility] GFR NOTES THE ESTIMATED GFR IS CALCULATED USING THE 2009 CKD-EPI EQUATION. THE FOLLOWING CATEGORIES FOR GRADING RENAL FUNCTION ARE RECOMMENDED BY THE INTERNATIONAL SOCIETY OF NEPHROLOGY (KDIGO 2012 CLINICAL PRACTICE GUIDELINE). 10/15/2018 12:47 PM CDT [facility] Comment: G1,NORMAL OR HIGH: >89 ml/min/1.73 m2 G2,MILDLY DECREASED: 60-89 ml/min/1.73 m2 G3A,MILDLY TO MODERATELY DECREASED: 45-59 ml/min/1.73 m2 G3B,MODERATELY TO SEVERELY DECREASED: 30-44 ml/min/1.73 m2 G4,SEVERELY DECREASED: 15-29 ml/min/1.73 m2 G5,KIDNEY FAILURE: <15 ml/min/1.73 m2 10/15/2018 8:18 AM CDT us Lourdes Foster MD LABORATORY Final Result [facility] [address] [place] [address], [phone] * (ABNORMAL) HEMOGLOBIN AND HEMATOCRIT (10/14/2018 8:45 PM CDT) HGB 9.3(L) 12.0 - 16.0 G/DL 10/14/2018 9:15 PM CDT [facility] HCT 28.8(L) 36.0 - 47.0 % 10/14/2018 9:15 PM CDT [facility] 10/14/2018 8:45 PM CDT us Lourdes Foster MD LABORATORY Final Result Performing Organization Address [facility] Co de Phone Number [facility] [address] [place] [address], [phone] * (ABNORMAL) HEMOGLOBIN AND HEMATOCRIT (10/14/2018 8:29 AM CDT) HGB 10.4(L) 12.0 - 16.0 G/DL 10/14/2018 8:43 AM CDT [facility] HCT 31.8(L) 36.0 - 47.0 % 10/14/2018 8:43 AM CDT [facility] 10/14/2018 8:29 AM CDT us Lourdes Foster MD LABORATORY Final Result Performing Organization Address City/[facility] Co de Phone Number [facility] [address] [place] [address], [phone] * (ABNORMAL) COMPREHENSIVE METABOLIC PANEL (10/14/2018 8:29 AM CDT) SODIUM S/P/B 133(L) 136 - 145 MMOL/L 10/14/2018 9:15 AM CDT [facility] POTASSIUM S/P/B 3.9 3.5 - 5.1 MMOL/L 10/14/2018 9:[address] [facility] CHLORIDE S/P/B 102 98 - 107 MMOL/L 10/14/2018 9:15 AM T [facility] CO2 25.3 21.0 - 32.0 MMOL/L 10/14/2018 9:[address] [facility] GLUCOSE 113(H) 74 - 106 MG/DL 10/14/2018 9:15 AM T [facility] BUN 9 7 - 18 MG/DL 10/14/2018 9:[address] [facility] CREATININE S/P/B 0.80 0.55 - 1.02 MG/DL 10/14/2018 9:15 AM T [facility] CALCIUM S/P/B 8.1(L) 8.5 - 10.1 MG/DL 10/14/2018 9:[address] [facility] BILIRUBIN TOTAL S/P/B 0.6 0.2 - 1.0 MG/DL 10/14/2018 9:15 AM T [facility] ALKALINE PHOSPHATASE S/P/B 58 55 - 142 U/L 10/14/2018 9:[address] [facility] AST 7(L) 15 - 37 U/L 10/14/2018 9:[address] [facility] ALT 10(L) 13 - 56 U/L 10/14/2018 9:[address] [facility] TOTAL PROTEIN S/P/B 6.2(L) 6.4 - 8.2 G/DL 10/14/2018 9:[address] [facility] ALBUMIN S/P/B 3.0(L) 3.4 - 5.0 G/DL 10/14/2018 9:[address] [facility] ANION GAP 5.7 5.0 - 15.0 MMOL/L 10/14/2018 9:[address] [facility] Comment:REFERENCE RANGE NOT ESTABLISHED OSMOLALITY (CALC) 275 MOSM/KG 10/14/2018 9:[address] [facility] Comment:REFERENCE RANGE NOT ESTABLISHED EGFR NON-AFR. AMER. 71(L) >90 ML/MIN/1 .73 M2 10/14/2018 9:15 AM CDT [facility] EGFR AFR. AMER. 82(L) >90 ML/MIN/1 .73 M2 10/14/2018 9:15 AM CDT [facility] GFR NOTES THE ESTIMATED GFR IS CALCULATED USING THE 2009 CKD-EPI EQUATION. THE FOLLOWING CATEGORIES FOR GRADING RENAL FUNCTION ARE RECOMMENDED BY THE INTERNATIONAL SOCIETY OF NEPHROLOGY (KDIGO 2012 CLINICAL PRACTICE GUIDELINE). 10/14/2018 9:15 AM CDT [facility] Comment: G1,NORMAL OR HIGH: >89 ml/min/1.73 m2 G2,MILDLY DECREASED: 60-89 ml/min/1.73 m2 G3A,MILDLY TO MODERATELY DECREASED: 45-59 ml/min/1.73 m2 G3B,MODERATELY TO SEVERELY DECREASED: 30-44 ml/min/1.73 m2 G4,SEVERELY DECREASED: 15-29 ml/min/1.73 m2 G5,KIDNEY FAILURE: <15 ml/min/1.73 m2 10/14/2018 8:29 AM CDT us Lourdes Foster MD LABORATORY Final Result [facility] [address] [place] [address], [phone] * (ABNORMAL) HEMOGLOBIN AND HEMATOCRIT (10/13/2018 8:08 PM CDT) HGB 9.5(L) 12.0 - 16.0 G/DL 10/13/2018 8:18 PM CDT [facility] HCT 29.3(L) 36.0 - 47.0 % 10/13/2018 8:18 PM CDT [facility] 10/13/2018 8:08 PM CDT us Lourdes Foster MD LABORATORY Final Result Performing Organization Address [facility] Co de Phone Number [facility] [address] [place] [address], [phone] * (ABNORMAL) HEMOGLOBIN AND HEMATOCRIT (10/13/2018 7:51 AM CDT) HGB 9.5(L) 12.0 - 16.0 G/DL 10/13/2018 8:43 AM CDT [facility] HCT 28.9(L) 36.0 - 47.0 % 10/13/2018 8:43 AM CDT [facility] 10/13/2018 7:51 AM CDT Lourdes Foster MD LABORATORY Final Result Performing Organization Address [facility] de Phone Number [facility] [address] [place] [address], [phone] * (ABNORMAL) COMPREHENSIVE METABOLIC PANEL (10/13/2018 7:51 AM CDT) SODIUM S/P/B 134(L) 136 - 145 MMOL/L 10/13/2018 9:11 AM CDT [facility] POTASSIUM S/P/B 3.9 3.5 - 5.1 MMOL/L 10/13/2018 9:11 AM CDT [facility] CHLORIDE S/P/B 104 98 - 107 MMOL/L 10/13/2018 9:11 AM CDT [facility] CO2 25.4 21.0 - 32.0 MMOL/L 10/13/2018 9:11 AM CDT [facility] GLUCOSE 109(H) 74 - 106 MG/DL 10/13/2018 9:11 AM CDT [facility] BUN 8 7 - 18 MG/DL 10/13/2018 9:11 AM CDT [facility] CREATININE S/P/B 0.65 0.55 - 1.02 MG/DL 10/13/2018 9:[address] [facility] CALCIUM S/P/B 8.0(L) 8.5 - 10.1 MG/DL 10/13/2018 9:[address] [facility] BILIRUBIN TOTAL S/P/B 0.6 0.2 - 1.0 MG/DL 10/13/2018 9:[address] [facility] ALKALINE PHOSPHATASE S/P/B 51(L) 55 - 142 U/L 10/13/2018 9:[address] [facility] AST 8(L) 15 - 37 U/L 10/13/2018 9:[address] [facility] ALT 12(L) 13 - 56 U/L 10/13/2018 9:[address] [facility] TOTAL PROTEIN S/P/B 5.7(L) 6.4 - 8.2 G/DL 10/13/2018 9:[address] [facility] ALBUMIN S/P/B 2.9(L) 3.4 - 5.0 G/DL 10/13/2018 9:[address] [facility] ANION GAP 4.6(L) 5.0 - 15.0 MMOL/L 10/13/2018 9:[address] [facility] Comment:REFERENCE RANGE NOT ESTABLISHED OSMOLALITY (CALC) 277 MOSM/KG 10/13/2018 9:[address] [facility] Comment:REFERENCE RANGE NOT ESTABLISHED EGFR NON-AFR. AMER. 86(L) >90 ML/MIN/1 .73 M2 10/13/2018 9:[address] [facility] EGFR AFR. AMER. >90 >90 ML/MIN/1 .73 M2 10/13/2018 9:[address] [facility] GFR NOTES THE ESTIMATED GFR IS CALCULATED USING THE 2009 CKD-EPI EQUATION. THE FOLLOWING CATEGORIES FOR GRADING RENAL FUNCTION ARE RECOMMENDED BY THE INTERNATIONAL SOCIETY OF NEPHROLOGY (KDIGO 2012 CLINICAL PRACTICE GUIDELINE). 10/13/2018 9:[address] [facility] Comment: G1,NORMAL OR HIGH: >89 ml/min/1.73 m2 G2,MILDLY DECREASED: 60-89 ml/min/1.73 m2 G3A,MILDLY TO MODERATELY DECREASED: 45-59 ml/min/1.73 m2 G3B,MODERATELY TO SEVERELY DECREASED: 30-44 ml/min/1.73 m2 G4,SEVERELY DECREASED: 15-29 ml/min/1.73 m2 G5,KIDNEY FAILURE: <15 ml/min/1.73 m2 10/13/2018 7:51 AM CDT us Lourdes Foster MD LABORATORY Final Result Performing Organization Address [facility] Co de Phone Number [facility] [address] [place] [address], [phone] * (ABNORMAL) HEMOGLOBIN AND HEMATOCRIT (10/12/2018 9:05 PM CDT) HGB 9.2(L) 12.0 - 16.0 G/DL 10/12/2018 9:38 PM CDT [facility] HCT 28.7(L) 36.0 - 47.0 % 10/12/2018 9:38 PM CDT [facility] 10/12/2018 9:05 PM CDT us Lourdes Foster MD LABORATORY Final Result Performing Organization Address [facility] Co de Phone Number [facility] [address] [place] [address], [place] [phone] * (ABNORMAL) BMP WITHOUT GLUCOSE (10/12/2018 9:57 AM CDT) SODIUM S/P/B 135(L) 136 - 145 MMOL/L 10/12/2018 10:39 AM CDT [facility] POTASSIUM S/P/B 3.9 3.5 - 5.1 MMOL/L 10/12/2018 10:39 AM CDT [facility] Comment:MILD HEMOLYSIS, RESU LT MAY BE AFFECTED. CHLORIDE S/P/B 104 98 - 107 MMOL/L 10/12/2018 10:39 AM CDT [facility] CO2 25.5 21.0 - 32.0 MMOL/L 10/12/2018 10:39 AM CDT [facility] BUN 7 7 - 18 MG/DL 10/12/2018 10:39 AM T [facility] CREATININE S/P/B 0.70 0.55 - 1.02 MG/DL 10/12/2018 10:39 AM T [facility] CALCIUM S/P/B 7.9(L) 8.5 - 10.1 MG/DL 10/12/2018 10:39 AM T [facility] ANION GAP 5.5 5.0 - 15.0 MMOL/L 10/12/2018 10:39 AM CDT [facility] Comment:REFERENCE RANGE NOT ESTABLISHED EGFR NON-AFR. AMER. 84(L) >90 ML/MIN/1 .73 M2 10/12/2018 10:39 AM T [facility] EGFR AFR. AMER. >90 >90 ML/MIN/1 .73 M2 10/12/2018 10:39 AM T [facility] GFR NOTES THE ESTIMATED GFR IS CALCULATED USING THE 2009 CKD-EPI EQUATION. THE FOLLOWING CATEGORIES FOR GRADING RENAL FUNCTION ARE RECOMMENDED BY THE INTERNATIONAL SOCIETY OF NEPHROLOGY (KDIGO 2012 CLINICAL PRACTICE GUIDELINE). 10/12/2018 10:39 AM T [facility] Comment: G1,NORMAL OR HIGH: >89 ml/min/1.73 m2 G2,MILDLY DECREASED: 60-89 ml/min/1.73 m2 G3A,MILDLY TO MODERATELY DECREASED: 45-59 ml/min/1.73 m2 G3B,MODERATELY TO SEVERELY DECREASED: 30-44 ml/min/1.73 m2 G4,SEVERELY DECREASED: 15-29 ml/min/1.73 m2 G5,KIDNEY FAILURE: <15 ml/min/1.73 m2 10/12/2018 9:57 AM CDT us Lourdes Foster MD LABORATORY Final Result Performing Organization Address [facility] Co de Phone Number [facility] [address] [place] [address], [phone] * (ABNORMAL) HEMOGLOBIN AND HEMATOCRIT (10/12/2018 9:56 AM CDT) HGB 10.1(L) 12.0 - 16.0 G/DL 10/12/2018 10:16 AM CDT [facility] HCT 31.2(L) 36.0 - 47.0 % 10/12/2018 10:16 AM CDT [facility] 10/12/2018 9:56 AM CDT us Lourdes Foster MD LABORATORY Final Result Performing Organization Address [facility] Co de Phone Number [facility] [address] [place] [address], [phone] * (ABNORMAL) HEMOGLOBIN AND HEMATOCRIT (10/11/2018 11:44 PM CDT) HGB 8.8(L) 12.0 - 16.0 G/DL 10/11/2018 11:55 PM CDT [facility] HCT 27.3(L) 36.0 - 47.0 % 10/11/2018 11:55 PM CDT [facility] 10/11/2018 11:4 4 PM CDT us Lourdes Foster MD LABORATORY Final Result Performing Organization Address [facility] Co de Phone Number [facility] [address] [place] [address], [phone] * POCT glucose (10/11/2018 5:03 PM CDT) [facility] GLUCOSE POC 104 70 - 109 10/12/2018 1:[address] [facility] ORDERS INTERFACE 10/11/2018 5:03 PM CDT Lourdes Foster MD POCT ORDERABLES - DEVICE Final R esult [facility] ORDERS INTERFACE US * CT SOFT [...] By: Ollie Roper MD, 10/11/2018 4:20 PM us Samm Graham MD CT Final Result * [...] - 16.0 G/DL 10/11/2018 3:57 PM CDT [facility] HCT 28.6(L) 36.0 - 47.0 % 10/11/2018 3:57 PM CDT [facility] 10/11/2018 3:30 PM CDT Lloyd Hernandez MD LABORATORY Final Result Performing Organization Address [facility] Co de Phone Number [facility] [address] [place] [address], [phone] * (ABNORMAL) POCT glucose (10/11/2018 11:06 AM CDT) GLUCOSE POC 146(H) 70 - 109 10/11/2018 11:[address] [facility] ORDERS INTERFACE 10/11/2018 11:0 6 AM CDT Festus Jocelyn DO POCT ORDERABLES - DEVICE Final R esult Performing Organization Address [facility] Co de Phone Number [facility] ORDERS INTERFACE US * (ABNORMAL) HEMOGLOBIN AND HEMATOCRIT (10/11/2018 10:05 AM CDT) HGB 7.0(L) 12.0 - 16.0 G/DL 10/11/2018 10:29 AM CDT [facility] HCT 22.8(L) 36.0 - 47.0 % 10/11/2018 10:29 AM CDT [facility] 10/11/2018 10:0 5 AM CDT us Lloydyelena Hernandez MD LABORATORY Final Result [facility] [address] [place] [address], [phone] * Pathology (10/11/2018 9:20 AM CDT) PATHOLOGY [facility] ? Department of Laboratory Medicine ?[address] ?[place] [address] ? , extension [phone] ? Pathology Report ? Surgical Pathology Report Name: JUANA KLEIN ?Specimen #: [id number] Age: 11 1940 (Age: 78) ? Location: [facility] Sex: F ?Procedure Date: 10/11/2018 Hospital #: [id number] ?Date Received: 10/12/2018 Date Reported: 10/13/2018 Provider: [...] Electronically Signed Out ? Timi Arevalo M.D. [facility] Tissue specimen (specimen) GASTRIC BIOPSY SPECIMEN / Unknown 10/11/2018 12:14 PM CDT Tissue specimen (specimen) GASTRIC BIOPSY SPECIMEN / Unknown 10/11/2018 12:14 PM CDT Tissue specimen (specimen) GASTRIC BIOPSY SPECIMEN / Unknown 10/11/2018 12:15 PM CDT us Samm Graham MD PATHOLOGY/CYTOLOGY ORDERABLE S Final Result Performing Organization Address [facility] Co de Phone Number [facility] [address] [place] [address], [place] [phone] * (ABNORMAL) POCT glucose (10/11/2018 6:56 AM CDT) GLUCOSE POC 123(H) 70 - 109 10/11/2018 6:[address] [facility] ORDERS INTERFACE 10/11/2018 6:56 AM CDT us Festus Jocelyn DO POCT ORDERABLES - DEVICE Final R esult Performing Organization Address [facility] Co de Phone Number [facility] ORDERS INTERFACE US * (ABNORMAL) BMP WITHOUT GLUCOSE (10/11/2018 6:00 AM CDT) SODIUM S/P/B 135(L) 136 - 145 MMOL/L 10/11/2018 7:00 AM CDT [facility] POTASSIUM S/P/B 4.6 3.5 - 5.1 MMOL/L 10/11/2018 7:00 AM CDT [facility] Comment:MILD HEMOLYSIS, RESU LT MAY BE AFFECTED. CHLORIDE S/P/B 107 98 - 107 MMOL/L 10/11/2018 7:00 AM CDT [facility] CO2 23.1 21.0 - 32.0 MMOL/L 10/11/2018 7:00 AM CDT [facility] BUN 16 7 - 18 MG/DL 10/11/2018 7:00 AM CDT [facility] CREATININE S/P/B 0.75 0.55 - 1.02 MG/DL 10/11/2018 7:00 AM CDT [facility] CALCIUM S/P/B 7.7(L) 8.5 - 10.1 MG/DL 10/11/2018 7:00 AM CDT [facility] ANION GAP 4.9(L) 5.0 - 15.0 MMOL/L 10/11/2018 7:00 AM CDT [facility] Comment:REFERENCE RANGE NOT ESTABLISHED EGFR NON-AFR. AMER. 77(L) >90 ML/MIN/1 .73 M2 10/11/2018 7:00 AM CDT [facility] EGFR AFR. AMER. 89(L) >90 ML/MIN/1 .73 M2 10/11/2018 7:00 AM CDT [facility] GFR NOTES THE ESTIMATED GFR IS CALCULATED USING THE 2009 CKD-EPI EQUATION. THE FOLLOWING CATEGORIES FOR GRADING RENAL FUNCTION ARE RECOMMENDED BY THE INTERNATIONAL SOCIETY OF NEPHROLOGY (KDIGO 2012 CLINICAL PRACTICE GUIDELINE). 10/11/2018 7:00 AM CDT [facility] Comment: G1,NORMAL OR HIGH: >89 ml/min/1.73 m2 G2,MILDLY DECREASED: 60-89 ml/min/1.73 m2 G3A,MILDLY TO MODERATELY DECREASED: 45-59 ml/min/1.73 m2 G3B,MODERATELY TO SEVERELY DECREASED: 30-44 ml/min/1.73 m2 G4,SEVERELY DECREASED: 15-29 ml/min/1.73 m2 G5,KIDNEY FAILURE: <15 ml/min/1.73 m2 10/11/2018 6:00 AM CDT us Festus Jocelyn DO LABORATORY Final Result [facility] [address] [place] [address], [phone] * (ABNORMAL) CBC W/DIFF AUTOMATED (10/11/2018 6:00 AM CDT) WBC 7.2 4.0 - 10.8 x10'3/uL 10/11/2018 6:33 AM CDT [facility] RBC 3.11(L) 4.10 - 5.40 x10'6/uL 10/11/2018 6:33 AM CDT [facility] HGB 9.1(L) 12.0 - 16.0 G/DL 10/11/2018 6:33 AM CDT [facility] HCT 27.7(L) 36.0 - 47.0 % 10/11/2018 6:33 AM CDT [facility] MCV 89.1 78.0 - 100.0 FL 10/11/2018 6:33 AM CDT [facility] MCH 29.3 27.0 - 31.0 PG 10/11/2018 6:33 AM CDT [facility] MCHC 32.9(L) 33.0 - 36.0 G/DL 10/11/2018 6:33 AM CDT [facility] RDW 15.8(H) 11.5 - 14.5 % 10/11/2018 6:33 AM CDT [facility] PLT 218 150 - 350 x10'3/uL 10/11/2018 6:33 AM CDT [facility] MPV 10.9(H) 7.4 - 10.4 FL 10/11/2018 6:33 AM CDT [facility] ABS. NEUTROPHILS TOTAL 5.24 1.60 - 8.30 x10'3/uL 10/11/2018 6:33 AM CDT [facility] ABS. LYMPHOCYTES 1.05 0.80 - 4.70 x10'3/uL 10/11/2018 6:33 AM CDT [facility] ABS. MONOCYTES 0.62 0.00 - 1.50 x10'3/uL 10/11/2018 6:33 AM CDT [facility] ABS. EOSINOPHILS 0.15 0.00 - 0.40 x10'3/uL 10/11/2018 6:33 AM CDT [facility] ABS. BASOPHILS 0.05 0.00 - 0.20 x10'3/uL 10/11/2018 6:33 AM CDT [facility] ABS. IMMATURE GRANULOCYTES 0.04(H) 0.00 - 0.03 x10'3/uL 10/11/2018 6:33 AM CDT [facility] ABS. NUCLEATED RBC'S 0.00 0.0 x10'3/uL 10/11/2018 6:33 AM CDT [facility] 10/11/2018 6:00 AM CDT us Festus Jocelyn DO LABORATORY Final Result Performing Organization Address [facility] Co de Phone Number [facility] [address] [place] [address], [place] [phone] * IRON SATURATION PANEL (FE,IBC,%SAT) (10/11/2018 6:00 AM CDT) IRON 133 50 - 170 MCG/DL 10/11/2018 7:06 AM CDT [facility] Comment:RESULT QUESTIONABLE DUE TO HEMOLYSIS, CONSIDER RECOLLECTION. IRON BINDING CAPACITY 427 250 - 450 MCG/DL 10/11/2018 7:06 AM CDT [facility] IRON SATURATION 31 % 9 7:06 AM CDT [facility] Comment:REFERENCE RANGE NOT ESTABLISHED 10/11/2018 6:00 AM CDT us Festus Jocelyn DO LABORATORY Final Result Performing Organization Address [facility]/ZIP Co de Phone Number [facility] [address] [place] [address], [place] [phone] * Transfuse RBC (10/11/2018 5:58 AM CDT) [...] (RH4) ANTIGEN NEGATIVE. 10/14/2018 8:30 AM CDT [facility] Comment: IF TRANSFUSION IS [...] BLOOD BANK TEST ORDERABLES F inal Result Performing Organization Address City/State/[facility] Co de Phone Number [facility] [address] [place] [address], [phone] * TYPE & SCREEN (10/10/2018 11:10 PM CDT) Pathologist [facility] UNITS ORDERED 4 10/11/2018 7:17 AM CDT [facility] ABO/RH O POSITIVE 10/11/2018 12:30 AM CDT [facility] ANTIBODY SCREEN POSITIVE 12:30 AM CDT [facility] SAMPLE EXPIRATION 10/13/2018 10/10/2018 11:27 PM CDT [facility] ANTIBODY ID ANTI-c 10/11/2018 1:07 AM CDT [facility] BLOOD UNIT NUMBER [id number] 10/11/2018 1:07 AM CDT [facility] PRODUCT: PC LEUKOPOOR 10/11/2018 1:07 AM CDT [facility] UNIT DIVISION 00 10/11/2018 1:07 AM CDT [facility] BLOOD UNIT STATUS TRANSFUSED,FIN AL 10/12/2018 2:07 AM CDT [facility] TRANSFUSION STATUS OK TO TRANSFUSE 10/11/2018 1:07 AM CDT [facility] CROSSMATCH COMPATIBLE 10/11/2018 1:07 AM CDT [facility] BLOOD UNIT NUMBER [id number] 10/11/2018 1:07 AM CDT [facility] PRODUCT: PC LEUKOPOOR 10/11/2018 1:07 AM CDT [facility] UNIT DIVISION 10/11/2018 1:07 AM CDT [facility] BLOOD UNIT STATUS TRANSFUSED,FIN AL 10/12/2018 2:07 AM CDT [facility] TRANSFUSION STATUS OK TO TRANSFUSE 10/11/2018 1:07 AM CDT [facility] CROSSMATCH COMPATIBLE 10/11/2018 1:07 AM CDT [facility] BLOOD UNIT NUMBER [id number] 10/11/2018 7:44 AM CDT [facility] PRODUCT: PC LEUKOPOOR 10/11/2018 7:44 AM CDT [facility] UNIT DIVISION 00 10/11/2018 7:44 AM CDT [facility] BLOOD UNIT STATUS UNIT RELEASED 10/14/2018 12:02 AM CDT [facility] TRANSFUSION STATUS OK TO TRANSFUSE 10/11/2018 7:44 AM CDT [facility] CROSSMATCH COMPATIBLE 10/11/2018 7:44 AM CDT [facility] BLOOD UNIT NUMBER [id number] 10/11/2018 7:44 AM CDT [facility] PRODUCT: PC LEUKOPOOR 10/11/2018 7:44 AM CDT [facility] UNIT DIVISION 00 10/11/2018 7:44 AM CDT [facility] BLOOD UNIT STATUS UNIT RELEASED 10/14/2018 12:02 AM CDT [facility] TRANSFUSION STATUS OK TO TRANSFUSE 10/11/2018 7:44 AM CDT [facility] CROSSMATCH COMPATIBLE 10/11/2018 7:44 AM CDT [facility] 10/10/2018 11:1 0 PM CDT Festus Jocelyn DO BLOOD BANK TEST ORDERABLES Final Result Performing Organization Address [facility] de Phone Number [facility] [address] [place] [address], [id number] * CULTURE, BACTERIA, BLOOD (10/10/2018 11:10 PM CDT) SPEC DESCRIPTION BLOOD 10/10/2018 11:02 PM CDT [facility] SPECIAL REQUESTS NO SPECIAL REQUEST 10/10/2018 11:02 PM CDT [facility] CULTURE RESULT NO GROWTH 5 DAYS 10/15/2018 11:55 PM CDT [facility] BLOOD SPECIMEN OBTAINED FOR BLOOD CULTURE / Unknown 10/10/2018 11:10 PM CDT 10/10/2018 11:42 PM CDT us Festus Jocelyn DO MICROBIOLOGY - GENERAL ORDERABLE S Final Result Performing Organization Address [facility] Co de Phone Number [facility] [address] [place] [address], [id number] * (ABNORMAL) CBC W/DIFF AUTOMATED (10/10/2018 11:10 PM CDT) [facility] WBC 6.3 4.0 - 10.8 x10'3/uL 10/10/2018 11:35 PM CDT [facility] RBC 1.92(L) 4.10 - 5.40 x10'6/uL 10/10/2018 11:35 PM CDT [facility] HGB 5.4(LL) 12.0 - 16.0 G/DL 10/10/2018 11:35 PM CDT [facility] Comment: CRITICAL RESULT, SPECIMEN DATE, TIME WERE READ BACK BY KARAN ROMERO AT [address] HCT 18.0(L) 36.0 - 47.0 % 10/10/2018 11:35 PM CDT [facility] MCV 93.8 78.0 - 100.0 FL 10/10/2018 11:35 PM CDT [facility] MCH 28.1 27.0 - 31.0 PG 10/10/2018 11:35 PM CDT [facility] MCHC 30.0(L) 33.0 - 36.0 G/DL 10/10/2018 11:35 PM CDT [facility] RDW 14.0 11.5 - 14.5 % 10/10/2018 11:35 PM CDT [facility] PLT 245 150 - 350 x10'3/uL 10/10/2018 11:35 PM CDT [facility] MPV 10.6(H) 7.4 - 10.4 FL 10/10/2018 11:35 PM CDT [facility] ABS. NEUTROPHILS TOTAL 4.08 1.60 - 8.30 x10'3/uL 10/10/2018 11:35 PM CDT [facility] ABS. LYMPHOCYTES 1.27 0.80 - 4.70 x10'3/uL 10/10/2018 11:35 PM CDT [facility] ABS. MONOCYTES 0.70 0.00 - 1.50 x10'3/uL 10/10/2018 11:35 PM CDT [facility] ABS. EOSINOPHILS 0.14 0.00 - 0.40 x10'3/uL 10/10/2018 11:35 PM CDT [facility] ABS. BASOPHILS 0.03 0.00 - 0.20 x10'3/uL 10/10/2018 11:35 PM CDT [facility] ABS. IMMATURE GRANULOCYTES 0.04(H) 0.00 - 0.03 x10'3/uL 10/10/2018 11:35 PM CDT [facility] ABS. NUCLEATED RBC'S 0.00 0.0 x10'3/uL 10/10/2018 11:35 PM CDT [facility] 10/10/2018 11:1 0 PM CDT Festus Jocelyn DO LABORATORY Final Result Performing Organization Address [facility] Co de Phone Number [facility] [address] [place] [address], [id number] * (ABNORMAL) LIPASE (10/10/2018 11:10 PM CDT) LIPASE 69(L) 73 - 393 UNITS/L 10/11/2018 12:06 AM CDT [facility] 10/10/2018 11:1 0 PM CDT Festus Jocelyn DO LABORATORY Final Result Performing Organization Address [facility] Co de Phone Number [facility] [address] [place] [address], [id number] * CALCIUM, IONIZED (10/10/2018 11:10 PM CDT) CALCIUM IONIZED 1.17 1.10 - 1.40 MMOL/L 10/11/2018 12:55 AM CDT [facility] 10/10/2018 11:1 0 PM CDT us Festus Jocelyn DO LABORATORY Final Result Performing Organization Address [facility] de Phone Number [facility] [address] [place] [address], [id number] * THYROID STIM HORMONE, TSH (10/10/2018 11:10 PM CDT) TSH 1.880 0.358 - 3.740 uIU/ML 10/11/2018 12:06 AM CDT [facility] 10/10/2018 11:1 0 PM CDT us Festus Jocelyn DO LABORATORY Final Result Performing Organization Address [facility] de Phone Number [facility] [address] [place] [address], [id number] * MAGNESIUM (10/10/2018 11:10 PM CDT) MAGNESIUM 2.2 1.6 - 2.6 MG/DL 10/11/2018 12:06 AM CDT [facility] 10/10/2018 11:1 0 PM CDT us Festus Jocelyn DO LABORATORY Final Result Performing Organization Address [facility] de Phone Number [facility] [address] [place] [address], [id number] * LACTIC ACID (10/10/2018 11:10 PM CDT) LACTIC ACID VENOUS 0.9 0.4 - 2.0 MMOL/L 10/10/2018 11:52 PM CDT [facility] 10/10/2018 11:1 0 PM CDT us Festus Jocelyn DO LABORATORY Final Result Performing Organization Address [facility]/State/ZIP Co de Phone Number [facility] [address] [place] [address], [id number] * (ABNORMAL) COMPREHENSIVE METABOLIC PANEL (10/10/2018 11:10 PM CDT) SODIUM S/P/B 136 136 - 145 MMOL/L 10/11/2018 12:06 AM CDT [facility] POTASSIUM S/P/B 4.0 3.5 - 5.1 MMOL/L 10/11/2018 12:06 AM CDT [facility] CHLORIDE S/P/B 106 98 - 107 MMOL/L 10/11/2018 12:06 AM T [facility] CO2 24.9 21.0 - 32.0 MMOL/L 10/11/2018 12:06 AM T [facility] GLUCOSE 91 74 - 106 MG/DL 10/11/2018 12:06 AM T [facility] BUN 18 7 - 18 MG/DL 10/11/2018 12:06 AM CDT [facility] CREATININE S/P/B 0.72 0.55 - 1.02 MG/DL 10/11/2018 12:06 AM CDT [facility] CALCIUM S/P/B 7.7(L) 8.5 - 10.1 MG/DL 10/11/2018 12:06 AM CDT [facility] BILIRUBIN TOTAL S/P/B 0.3 0.2 - 1.0 MG/DL 10/11/2018 12:06 AM T [facility] ALKALINE PHOSPHATASE S/P/B 34(L) 55 - 142 U/L 10/11/2018 12:06 AM CDT [facility] AST 7(L) 15 - 37 U/L 10/11/2018 12:06 AM T [facility] ALT 10(L) 13 - 56 U/L 10/11/2018 12:06 AM T [facility] TOTAL PROTEIN S/P/B 4.9(L) 6.4 - 8.2 G/DL 10/11/2018 12:06 AM CDT [facility] ALBUMIN S/P/B 2.8(L) 3.4 - 5.0 G/DL 10/11/2018 12:06 AM CDT [facility] ANION GAP 5.1 5.0 - 15.0 MMOL/L 10/11/2018 12:06 AM CDT [facility] Comment:REFERENCE RANGE NOT ESTABLISHED OSMOLALITY (CALC) 283 MOSM/KG 10/11/2018 12:06 AM CDT [facility] Comment:REFERENCE RANGE NOT ESTABLISHED EGFR NON-AFR. AMER. 81(L) >90 ML/MIN/1 .73 M2 10/11/2018 12:06 AM CDT [facility] EGFR AFR. AMER. >90 >90 ML/MIN/1 .73 M2 10/11/2018 12:06 AM CDT [facility] GFR NOTES THE ESTIMATED GFR IS CALCULATED USING THE 2009 CKD-EPI EQUATION. THE FOLLOWING CATEGORIES FOR GRADING RENAL FUNCTION ARE RECOMMENDED BY THE INTERNATIONAL SOCIETY OF NEPHROLOGY (KDIGO 2012 CLINICAL PRACTICE GUIDELINE). 10/11/2018 12:06 AM CDT [facility] Comment: G1,NORMAL OR HIGH: >89 ml/min/1.73 m2 G2,MILDLY DECREASED: 60-89 ml/min/1.73 m2 G3A,MILDLY TO MODERATELY DECREASED: 45-59 ml/min/1.73 m2 G3B,MODERATELY TO SEVERELY DECREASED: 30-44 ml/min/1.73 m2 G4,SEVERELY DECREASED: 15-29 ml/min/1.73 m2 G5,KIDNEY FAILURE: <15 ml/min/1.73 m2 10/10/2018 11:1 0 PM CDT us Festus Jocelyn DO LABORATORY Final Result [facility] [address] [place] [address], [id number] * MRSA SCREENING (10/10/2018 11:04 PM CDT) SPECIMEN SOURCE RESPIRATORY, NOSE 10/10/2018 11:04 PM CDT [facility] MRSA BY PCR NASAL METHICILLIN RESISTANT STAPH AUREUS NOT DETECTED 10/11/2018 11:35 AM CDT [facility] NASAL STRUCTURE / Unknown 10/10/2018 11:04 PM CDT us Festus Jocelyn DO MICROBIOLOGY - GENERAL ORDERABLE S Final Result Performing Organization Address [facility] Co de Phone Number [facility] [address] [place] [address], [id number] * (ABNORMAL) POCT glucose (10/10/2018 11:00 PM CDT) Pathologist [facility] GLUCOSE POC 123(H) 70 - 109 10/11/2018 12:[address] [facility] ORDERS INTERFACE Comment:RN Notified 10/10/2018 11:0 0 PM CDT us Festus Jocelyn DO POCT ORDERABLES - DEVICE Final R esult Performing Organization Address [facility] de Phone Number [facility] ORDERS INTERFACE US * CULTURE, BACTERIA, BLOOD (10/10/2018 6:00 AM CDT) Pathologist [facility] SPEC DESCRIPTION BLOOD 10/10/2018 11:02 PM CDT [facility] SPECIAL REQUESTS NO SPECIAL REQUEST 10/10/2018 11:02 PM CDT [facility] CULTURE RESULT NO GROWTH 5 DAYS 10/16/2018 11:55 PM CDT [facility] BLOOD SPECIMEN OBTAINED FOR BLOOD CULTURE / Unknown 10/10/2018 6:00 AM CDT 10/11/2018 6:51 AM CDT us Festus Jocelyn DO MICROBIOLOGY - GENERAL ORDERABLE S Final Result Performing Organization Address [facility] Co de Phone Number [facility] [address] [place] [address], [id number] documented in this encounter Visit Diagnoses Not on filedocumented in this encounter Administered Medications Inactive Administered [...] Given 10/13/2018 9:39 AM CDT 40 mg duloxetine (CYMBALTA) capsule 60 mg 60 mg, Oral, Daily, First dose on Wed10/11/18 at 1430, Until Discontinued, Swallow capsule whole or it may be opened and the contents sprinkled on applesauce. Given 10/15/2018 8:56 AM CDT 60 mg Given 10/14/2018 8:42 AM CDT 60 mg Given 10/13/2018 9:38 AM CDT 60 mg ferrous sulfate (65 mg elemental) tablet 325 mg 325 mg, Oral, 3 times daily with meals, First dose on Wed10/11/18 at 1700, Until Discontinued Given 10/15/2018 8:23 AM CDT 325 mg Given 10/14/2018 5:40 PM CDT 325 mg Given 10/14/2018 3:17 PM CDT 325 mg gabapentin (NEURONTIN) capsule 100 mg 100 mg, Oral, 3 times daily, First dose on Wed10/11/18 at 1600, Until Discontinued Given 10/15/2018 8:56 AM CDT 100 m g Given 10/14/2018 8:01 PM CDT 100 mg Given 10/14/2018 3:18 PM CDT 100 mg lorazepam (ATIVAN) tablet 0.5 mg 0.5 mg, Oral, 2 times daily, First dose on Wed10/11/18 at 2100, Until Discontinued Given 10/15/2018 8:55 AM CDT 0.5 m g Given 10/14/2018 8:01 PM CDT 0.5 mg Given 10/14/2018 8:42 AM CDT 0.5 mg pantoprazole (PROTONIX) injection 40 mg 40 mg, [...] on Wed10/12/18 at 1600, Until Discontinued New Bag 10/15/2018 8:56 AM CDT 3.375 g 12.5 m L/hr New Bag 10/15/2018 12:57 AM CDT 3.375 g 12.5 mL/hr New Bag 10/14/2018 3:18 PM CDT 3.375 g 12.5 mL/hr polyethylene glycol (GLYCOLAX) packet 1 packet 1 packet, Oral, Daily, First dose on Wed10/14/18 at 2100, Until Discontinued, Dissolve powder in 240 mL water Given 10/15/2018 8:54 AM CDT 1 packet Given 10/14/2018 8:01 PM CDT 1 packet sucralfate (CARAFATE) 1 GM/10ML suspension 1 g [...] Patterson RN) 0842 (Given - Provider: Danielle Aponte, NICK) 0856 (Given - Provider: Jocelyn Fallon, NICK) duloxetine (CYMBALTA) capsule 60 mg 60 mg, Oral, Daily, First dose on Wed10/11/18 at 1430, Until Discontinued, Swallow capsule whole or it may be opened and the contents sprinkled on applesauce. 0938 (Given - Provider: Oksana Patterson RN) 0842 (Given - Provider: Danielle Aponte, NICK) 0856 (Given - Provider: Jocelyn Fallon, NICK) ferrous sulfate (65 mg elemental) tablet 325 mg 325 mg, Oral, 3 times daily with meals, First dose on Wed10/11/18 at 1700, Until Discontinued 0938 (Given - Provider: Oksana Patterson RN)1310 (Given - Provider: Oksana Patterson RN)1637 (Given - Provider: Oksana Patterson RN) 0842 (Given - Provider: Danielle Aponte, NICK)1131 (Not Given - Provider: Danielle Aponte RN - Reason: Patient/family declined)1517 (Given - Provider: Beth Cosby, NICK)1740 (Given - Provider: Beth Cosby, NICK) 0823 (Given - Provider: Jocelyn Fallon, NICK)111 (Not Given - Provider: Jocelyn Fallon RN - Reason: Other) gabapentin (NEURONTIN) capsule 100 mg 100 mg, Oral, 3 times daily, First dose on Wed10/11/18 at 1600, Until Discontinued 0938 (Given - Provider: Oksana Patterson RN)163 (Given - Provider: Oksana Patterson RN)2128 (Given - Provider: Atiya Haas RN) 0842 (Given - Provider: Danielle Aponte, NICK)151 (Given - Provider: Beth Cosby, NICK)2000 (Given - Provider: Bill Jacobsen RN) 0856 (Given - Provider: Jocelyn Fallon, NICK) lorazepam (ATIVAN) tablet 0.5 mg 0.5 mg, Oral, 2 times daily, First dose on Wed10/11/18 at 2100, Until Discontinued 0938 (Given - Provider: Okasna Patterson RN)2128 (Given - Provider: Atiya Haas RN) 0842 (Given - Provider: Danielle Aponte, NICK)2000 (Given - Provider: Bill Jacobsen RN) 0855 (Given - Provider: Jocelyn Fallon, NICK) magnesium hydroxide (MILK OF MAGNESIA) 400 MG/5ML suspension 30 mL (COMPLETED) 30 mL, Oral, Once, 1 dose, On Wed10/13/18 at 2115, Shake Well 2128 (Given - Provider: Atiya Haas, NICK) pantoprazole (PROTONIX) injection 40 mg 40 mg, Intravenous, 2 times daily, First dose on Wed10/11/18 at 2100, Until Discontinued, Reconstitute each 40 mg vial with 10 mL normal saline to a final concentration of 4 mg/mL. Administer intravenously over a period of a least 2 minutes. 0939 (Given - Provider: Oksana Patterson, NICK)212 (Given - Provider: Atiya Haas, NICK) 0842 (Given - Provider: Danielle Aponte, NICK)1999 (Given - Provider: Bill Jacobsen, RN) 0856 (Given - Provider: Jocelyn Fallon, RN) piperacillin-tazobactam (ZOSYN) 3.375 g in sodium chloride [...] Patterson RN)1638 (New Bag - Provider: Oksana Patterson, NICK)2120 (Infusion Stop Time - Provider: Atiya Haas RN)2341 (New Bag - Provider: Atiya Haas RN) 0421 (Infusion Stop Time - Provider: Atiya Haas RN)0842 (New Bag - Provider: Danielle Aponte, NICK)1422 (Infusion Stop Time - Provider: Beth Cosby, NICK)1518 (New Bag - Provider: Beth Cosby, NICK)1929 (Infusion Stop Time - Provider: Beth Cosby, [...] dose on Wed10/11/18 at 1245, Until Discontinued, Hilario Well 0053 (Not Given - Provider: Atiya Haas RN - Reason: Patient/family declined)0939 (Given - Provider: Oksana Patterson, RN)1310 (Given - Provider: Oksana Patterson, RN)1638 (Given - Provider: Oksana Patterson, RN)2355 (Not Given - Provider: Atiya Haas RN - Reason: Patient/family declined) 0844 (Given - Provider: Danielle Aponte RN - Comment: time change per pt request)1131 (Given - Provider: Danielle Aponte, NICK)1736 (Given - Provider: Beth Cosby RN) 0057 (Given - Provider: Bill Jacobsen, NICK)0502 (Given - Provider: Bill Jacobsen, NICK)1114 (Not Given - Provider: Jocelyn Fallon RN - Reason: Other) documented in this encounter Care Teams Tearer Relationship Specialty Start Date End Date Jarret Martinez MD [address] [place] [phone] PCP - General FAMILY PRACTICE 12/27/17 Go Richards MD [address] [place] [phone] INTERVENTIONAL CARDIOLOGY 12/27/17 04/23/19 documented as of this encounter
--- OUTSIDE RECORDS SUMMARY | 2024-03-20 22:46 | XMS_ITS | Encounter Summary ---
Author Organization [facility] Address [address] [place] [address]. [place] [address] [place] [address] Care Team Providers Care Grizzlyman Name Role Phone Jarret Kwong MD Primary Care Provider Go Hanna MD Unavailable Unavailable Reason for Visit * Reason Onset Date Comments FYI 10/28/2018 Encounter Details Date Type Department Care Team (Late st Contact Info) Description 10/28/2018 Telephone [facility] [address] [place] [address] Go Hanna MD Social History Tobacco Use Types Packs/Day Years [...] documented in this encounter Progress Notes * Christa Malki RN - 10/28/2018 2:15 PM CDT Sonya with Dr. Shelton's called to inform Dr. Hanna that she has been diagnosed with colon cancer and anemia. They are aware that she is being worked up for severe MR. Pt has an appt with Dr. Hanna on 11/02/[address] [place] Shelton requests Dr. Hanna call after seeing her to discuss. Dr. Shelton's cell number is [phone] and the office back line number is [phone] documented in this encounter Plan of Treatment Not on file documented as of this encounter Visit Diagnoses Not on filedocumented in this encounter Care Teams Grizzlyman Relationship Specialty Start Date End Date Jarret Kwong MD [address] [place] [phone] PCP - General FAMILY PRACTICE 12/27/17 Go Hanna MD [address] [place] [phone] INTERVENTIONAL CARDIOLOGY 12/27/17 04/23/19 documented as of this encounter
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
--- OUTSIDE RECORDS SUMMARY | 2024-03-20 22:46 | XMS_ITS | Encounter Summary ---
Author Organization [facility] Address [address] [place] [address]. [place] [address] [place] [address] Care Team Providers Care Wirer Passenger Car Name Role Phone Jarret Kwong MD Primary Care Provider [phone] Robbin Urban MD Unavailable Encounter Details Date Type Department Care Team (Latest Contact Info) Description 05/26/2019 Travel Social History Tobacco Use Types Packs/Day [...] on filedocumented in this encounter Care Teams Wirer Passenger Car Relationship Specialty Start Date End Date Jarret Kwong MD [address] [place] [phone] PCP - General FAMILY PRACTICE 12/27/17 Robbin Urban MD [address] [place] [phone] [place] Multimedia Editor CARDIOVASCULAR DISEASE 04/24/19 documented as of this encounter
--- OUTSIDE RECORDS SUMMARY | 2024-03-20 22:46 | XMS_ITS | Encounter Summary ---
Author Organization [facility] Address [address] [place] [address]. [place] [address] [place] [address] Care Team Providers Care Collection Teller Name Role Phone Jarret Kwong MD Primary Care Provider [phone] Go Hanna MD Unavailable Unavailable Reason for Visit * Reason Onset Date Comments Record Request 11/04/2018 Encounter Details Date Type Department Care Team (Late st Contact Info) Description 11/04/2018 Telephone [facility] [address] [place] [address] Go Hanna MD Record Request Social History Tobacco Use Types Packs/Day Years [...] documented in this encounter Progress Notes * Kelli Montero - 11/04/2018 10:22 AM CDT Sonya with Dr. Shelton called for patient's recent clinic note, patient is having surgery early next week. Fax # [phone] documented in this encounter Plan of Treatment Not on file documented as of this encounter Visit Diagnoses Not on filedocumented in this encounter Care Teams Collection Teller Relationship Specialty Start Date End Date Jarret Kwong MD [address] [place] [phone] PCP - General FAMILY PRACTICE 12/27/17 Go Hanna MD [address] [place] [phone] INTERVENTIONAL CARDIOLOGY 12/27/17 04/23/19 documented as of this encounter
--- OUTSIDE RECORDS SUMMARY | 2024-03-20 22:46 | XMS_ITS | Encounter Summary ---
Author Organization [facility] Address [address] [place] [address]. [place] [address] [place] [address] Care Team Providers Care Senior Oracle Developer Name Role Phone Jarret Kwong MD Primary Care Provider Go Hanna MD Unavailable Unavailable Reason for Visit * Reason Onset Date Comments Information 11/02/2018 Encounter Details Date Type Department Care Team (Late st Contact Info) Description 11/02/2018 Telephone [facility] [address] [place] [address] Go Hanna MD Information Social History Tobacco Use Types Packs/Day Years [...] encounter Progress Notes * Kelli Montero - 11/02/2018 2:59 PM CDT Sonya called to give Dr. Shelton's fax number [phone] documented in this encounter Plan of Treatment Not on file documented as of this encounter Visit Diagnoses Not on filedocumented in this encounter Care Teams Senior Oracle Developer Relationship Specialty Start Date End Date Jarret Kwong MD [address] [place] [phone] PCP - General FAMILY PRACTICE 12/27/17 Go Hanna MD [address] [place] [phone] INTERVENTIONAL CARDIOLOGY 12/27/17 04/23/19 documented as of this encounter
--- OUTSIDE RECORDS SUMMARY | 2024-03-20 22:46 | XMS_ITS | Encounter Summary ---
Author Organization [facility] Address [address] [place] [address]. [place] [address] [place] [address] Care Team Providers Care Waitstaff Captain Name Role Phone Jarret Kwong MD Primary Care Provider Go Hanna MD Unavailable Unavailable Reason for Visit * Reason Onset Date Comments Follow Up Call 11/02/2018 Encounter Details Date Type Department Care Team (Late st Contact Info) Description 11/02/2018 Telephone [facility] [address] [place] [address] Go Hanna MD Follow Up Call Social History Tobacco Use [...] Notes * Go Hanna MD - 11/02/2018 12:36 PM CDT I saw her in clinic today Pt has colon cancer, recent admission with severe GI blood loss anemia while on Pradaxa. Now off Pradaxa WALDO showed Severe MR Discussed with Dr Shelton I recommend proceeding with colon surgery first EF normal, Severe MR, not in decompensated CHF We will be happy to follow along in darcie operative period documented in this encounter Plan of Treatment Not on file documented as of this encounter Visit Diagnoses Not on filedocumented in this encounter Care Teams Waitstaff Captain Relationship Specialty Start Date End Date Jarret Kwong MD [address] [place] [phone] PCP - General FAMILY PRACTICE 12/27/17 Go Hanna MD [address] [place] [phone] INTERVENTIONAL CARDIOLOGY 12/27/17 04/23/19 documented as of this encounter
--- OUTSIDE RECORDS SUMMARY | 2024-03-20 22:46 | XMS_ITS | Encounter Summary ---
Author Organization [facility] Address [address] [place] [address]. [place] [address] [place] [address] Care Team Providers Care Wind Turbine Controls Engineer Name Role Phone Jarret Kwong MD Primary Care Provider Robbin Urban MD Unavailable [phone] Encounter Details Date Type Department Care Team (Latest Contact Info) Description 08/12/2020 9:19 AM CDT - 08/12/2020 11:59 PM CDT Hospital Encounter [facility] [address] [facility] [place] [place] [address] Jacob Cardoza MD [address] [place] [address] Jarret Kwong MD [address] [place] [address] Discharge Disposition: Home or Self Care [...] Associated Diagnosis Comments BASIC METABOLIC PANEL Routine 08/12/2020 9:47 AM CDT Osteoporosis Vitamin D deficiency VITAMIN D, 25 OH Routine 08/12/2020 9:47 AM CDT Osteoporosis Vitamin D deficiency documented in this encounter Results * (ABNORMAL) BASIC METABOLIC PANEL (08/12/2020 9:47 AM CDT) SODIUM S/P/B 142 136 - 145 MMOL/L 08/12/2020 10:44 AM CDT [facility] POTASSIUM S/P/B 4.0 3.5 - 5.1 MMOL/L 08/12/2020 10:44 AM [facility] CHLORIDE S/P/B 105 98 - 107 MMOL/L 08/12/2020 10:44 AM [facility] CO2 28.1 21.0 - 32.0 MMOL/L 08/12/2020 10:44 AM [facility] GLUCOSE 94 70 - 99 MG/DL 08/12/2020 10:44 AM [facility] Comment: FASTING GLUCOSE 100 TO 125 MG/DL IS CONSISTENT WITH IMPAIRED FASTING GLUCOSE. FASTING GLUCOSE >125 MG/DL IS CONSISTENT WITH DIABETES. RANDOM GLUCOSE >200 MG/DL WITH HYPERGLYCEMIC SYMPTOMS IS CONSISTENT WITH DIABETES. PER ADA GUIDELINES BUN 16 6 - 24 MG/DL 08/12/2020 10:44 AM [facility] CREATININE S/P/B 0.78 0.55 - 1.02 MG/DL 08/12/2020 10:44 AM [facility] CALCIUM S/P/B 8.7 8.4 - 10.5 MG/DL 08/12/2020 10:44 AM [facility] ANION GAP 8.9 5.0 - 15.0 MMOL/L 08/12/2020 10:44 AM [facility] OSMOLALITY (CALC) 295 MOSM/KG 021 10:44 AM [facility] Comment:REFERENCE RANGE NOT ESTABLISHED EGFR NON-AFR. AMER. 72(L) >89 ML/MIN/1. 73 M2 08/12/2020 10:44 AM [facility] EGFR AFR. AMER. 84(L) >89 ML/MIN/1. 73 M2 08/12/2020 10:44 AM [facility] GFR NOTES GFR REFERENCE S: 08/12/2020 10:44 AM [facility] Comment: THE ESTIMATED GFR IS CALCULATED [...] <15 ml/min/1.73 m2 08/12/2020 9:47 AM CDT Jarret Kwong MD LABORATORY Final Resul t Performing Organization Address City/[facility]/ZIP Co de Phone Number [facility] [address] [place] [address], * VITAMIN D, 25 OH (08/12/2020 9:47 AM CDT) VITAMIN D 25 HYDROXY S/P/B 51.1 NG/ML 08/13/2020 9:36 PM CDT [facility] Comment: <10 ng/mL (Severe deficiency) 10 TO 19 ng/mL (Mild to Moderate deficiency) 20 TO 50 ng/mL (Optimum levels) 51 TO 80 ng/mL (Increased risk of hypercalciuria) >80 ng/mL (Toxicity possible) 08/12/2020 9:47 AM CDT Jarret Kwong MD LABORATORY Final Resul t Performing Organization Address City/[facility]/ZIP Co de Phone Number [facility] [address] [place] [address], [place] [phone] documented in this encounter Visit Diagnoses Diagnosis Osteoporosis Osteoporosis, unspecified Vitamin D deficiency Unspecified vitamin D deficiency documented in this encounter Care Teams Wind Turbine Controls Engineer Relationship Specialty Start Date End Date Jarret Kwong MD [address] [place] [phone] PCP - General FAMILY PRACTICE 12/27/17 Robbin Urban MD [address] [place] [address] Latta Tour Actor CARDIOVASCULAR DISEASE 04/24/19 documented as of this encounter
--- OUTSIDE RECORDS SUMMARY | 2024-03-20 22:46 | XMS_ITS | Encounter Summary ---
Author Organization [facility] Address [address] [place] [address]. [place], [place] [address] [place] [address] Care Team Providers Care Edi Coordinator Name Role Phone Jarret Kwong MD Primary Care Provider Robbin Urban MD Unavailable [phone] Reason for Visit * Reason Comments Injection * Auth/Cert Specialty Diagnoses / Procedures Referred By Sam t Referred To Contact Diagnoses M81.0 Referral ID Status Reason Start Date Expiration Date Visits Re quested Visits Authorized [id number] 1 1 Encounter Details Date Type Department Care Team (Latest Contact Info) Description 05/26/2019 6:48 AM ROLLED GOLD PLATER - 05/26/2019 11:59 PM [facility] Hospital Encounter [facility] [address] [place] [address] [place] [address] Jarret Kwong MD [address] [place] [phone] Injection Discharge Disposition: Home or Self [...] Sign Reading Time Taken Comments Blood Pressure 124/55 05/26/2019 7:55 AM ROLLED GOLD PLATER Pulse 64 05/26/2019 7:55 AM ROLLED GOLD PLATER Temperature 36.1 ??C (97 ??F) 05/26/2019 7:55 AM ROLLED GOLD PLATER Respiratory Rate 18 05/26/2019 7:55 AM ROLLED GOLD PLATER Oxygen Saturation 99% 05/26/2019 7:55 AM ROLLED GOLD PLATER Inhaled Oxygen Concentration - - Weight 59.5 kg (131 lb 3.2 oz) 05/26/2019 7:55 A M ROLLED GOLD PLATER Height - - Body Mass Index 24 11/02/2018 2:46 PM CDT documented in this [...] as of this encounter Progress Notes * Linnette Garza - 05/26/2019 11:59 PM CSTEncounter addended by: Linnette Garza on: 05/30/2019 1:03 PM Actions taken: Charge Capture section accepted ED GOLD PLATER * Beverly Childs RN - 05/26/2019 7:57 AM CST PATIENT ASSESSMENT: Admitted via: Wheelchair Admitted from: Home Planned procedure: prolia Patient information verified by BEVERLY CHILDS RN. Barriers to learning: None Patient identity confirmed - Name and date of and Allergies Verified LOC: Alert Emotional: Calm Motor Activity: Assistend devices Respiratory: Regular and even Circulatory: na Nutrition: na Elimination: na NURSING DIAGNOSIS: Knowledge deficit related to procedure, Anxiety/fear related to knowledge deficit and Risk of injury GOALS: Patient/S.O. will understand expected responses to procedure, Patient/S.O. will verbalize anxietiesand/or concerns and Patient will be free from signs/symptoms of physical injury ED GOLD PLATER documented in this encounter Plan of Treatment Not on file documented as of this encounter Visit Diagnoses Diagnosis Senile osteoporosis- Primary documented in this encounter Administered Medications Inactive Administered Medications - up to 3 most recent administrations Medication Order MAR Action Action Date Dose Rate Site denosumab (PROLIA) injection 60 mg 60 mg, Subcutaneous, Once, 1 dose, On Wed05/26/19 at 0800Indications:Senile osteoporosis Given 05/26/2019 7:47 AM ROLLED GOLD PLATER 60 mg Left Arm documented in this encounter Care Teams Edi Coordinator Relationship Specialty Start Date End Date Jarret Kwong MD [address] [place] [phone] PCP - General FAMILY PRACTICE 12/27/17 Robbin Urban MD [address] [place] [address] [place]une Audioprosthologist CARDIOVASCULAR DISEASE 04/24/19 documented as of this encounter
--- OUTSIDE RECORDS SUMMARY | 2024-03-20 22:46 | XMS_ITS | Encounter Summary ---
Author Organization [facility] Address [address] [place] [address]. [place] [address] [place] [address] Care Team Providers Care Residency Director Name Role Phone Jarret Kwong MD Primary Care Provider Robbin Urban MD Unavailable [phone] Reason for Visit * Reason Onset Date Comments Appointment Request 06/14/2020 Encounter Details Date Type Department Care Team (Late st Contact Info) Description 06/14/2020 Telephone [employer] [facility] AT [address] [phone] Flaquito Hamilton MD Appointment Request Social History Tobacco Use Types Packs/Day [...] documented in this encounter Progress Notes * Prema Haas - 06/14/2020 10:13 AM CST Called pt to request f/u appt. Pt answered telephone, I introduced myself and explained reason for call, pt had no response and soon ended call on her end. 

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
--- OUTSIDE RECORDS SUMMARY | 2024-03-20 22:47 | XMS_ITS | Encounter Summary ---
Author Organization [facility] Address [address] [place] [address]. [place] [address] [place] [address] Care Team Providers Care Animal Assistant Name Role Phone Unavailable Primary Care Provider Unavailabl e Encounter Details Date Type Department Care Team (Late st Contact Info) Description 12/17/2016 Orders Only [facility] [address] , Generic Conversion, Social History Tobacco Use Types Packs/Day Years Used Date Smoking Tobacco: Never Comments Unknown Sex and Gender Information Value Date Recorded Sex Assigned at Not on file Legal Sex Female 12:12 AM CDT Gender Identity Not on file Sexual Orientation Not on file documented as of this encounter Plan of Treatment Not on file documented as of this encounter Procedures Procedure Name Priority Date/Time Associated Diagnosis Comments HEMOGLOBIN AND HEMATOCRIT TIMED 12/17/2016 1:15 AM CDT documented in this encounter Results * (ABNORMAL) HEMOGLOBIN AND HEMATOCRIT (12/17/2016 1:15 AM CDT) HGB 10.2(L) 12.0 - 16.0 G/DL 12/17/2016 12:43 AM CDT [facility] HCT 30.7(L) 36.0 - 47.0 % 12/17/2016 12:43 AM CDT [facility] PLASMA SPECIMEN / Unknown 12/17/2016 1:15 AM CDT 12/17/2016 12:23 AM CDT us Generic Conversion Md [facility] Final R esult [facility] [address] [place] [address], [id number] documented in this encounter Visit Diagnoses Not on filedocumented in this encounter
--- OUTSIDE RECORDS SUMMARY | 2024-03-20 22:47 | XMS_ITS | Encounter Summary ---
Author Organization [facility] Address [address] [place] [address]. [place] [address] [place] [address] Care Team Providers Care Creative Engagement Director Name Role Phone Unavailable Primary Care Provider Unavailabl e Encounter Details Date Type Department Care Team (Late st Contact Info) Description 12/19/2016 Orders Only [place] [address] , Generic Conversion, Social History [...] Date/Time Associated Diagnosis Comments HEMOGLOBIN AND HEMATOCRIT Routine 12/19/2016 2:12 AM CDT documented in this encounter Results * (ABNORMAL) HEMOGLOBIN AND HEMATOCRIT (12/19/2016 2:12 AM CDT) HGB 7.4(L) 12.0 - 16.0 G/DL 12/19/2016 1:20 AM CDT [facility] HCT 22.3(L) 36.0 - 47.0 % 12/19/2016 1:20 AM CDT [facility] PLASMA SPECIMEN / Unknown 12/19/2016 2:12 AM CDT 12/19/2016 1:17 AM CDT us Generic Conversion Md [facility] Final R esult [facility] [address] [place] [address], [id number] documented in this encounter Visit Diagnoses Not on filedocumented in this encounter
--- OUTSIDE RECORDS SUMMARY | 2024-03-20 22:47 | XMS_ITS | Encounter Summary ---
Author Organization [facility] Address [address] [place] [address]. [place] [address] [place] [address] Care Team Providers Care Sapphire Stylus Grinder Name Role Phone Jarret Kwong MD Primary Care Provider Go Hanna MD Unavailable Unavailable Encounter Details Date Type Department Care Team (Late st Contact Info) Description 07/20/2018 Abstract [facility] [address] [place] [address] [place] [address] Jarret Kwong MD [address] [place] [phone] Social History Tobacco Use Types Packs/Day Years Used Date Smoking Tobacco: Never Smokeless Tobacco: Never Comments Unknown Sex and Gender Information Value Date Recorded Sex Assigned at Not on file Legal Sex Female 12:12 AM CDT Gender Identity Not on file Sexual Orientation Not on file documented as of this encounter Plan of Treatment Not on file documented as of this encounter Visit Diagnoses Not on filedocumented in this encounter Care Teams Sapphire Stylus Grinder Relationship Specialty Start Date End Date Jarret Kwong MD [address] [place] [phone] PCP - General FAMILY PRACTICE 12/27/17 Go Hanna MD [address] [place] [phone] INTERVENTIONAL CARDIOLOGY 12/27/17 04/23/19 documented as of this encounter
--- OUTSIDE RECORDS SUMMARY | 2024-03-20 22:47 | XMS_ITS | Encounter Summary ---
Author Organization [facility] Address [address] [place] [address]. [place] [address] [place] [address] Care Team Providers Care Rockboard Lather Name Role Phone Unavailable Primary Care Provider Unavailabl e Encounter Details Date Type Department Care Team (Late st Contact Info) Description 12/17/2016 Orders Only [place] [address] , Generic Conversion, Social History [...] Diagnosis Comments HEMOGLOBIN AND HEMATOCRIT TIMED 12/17/2016 1:06 PM CDT documented in this encounter Results * (ABNORMAL) HEMOGLOBIN AND HEMATOCRIT (12/17/2016 1:06 PM CDT) HGB 9.3(L) 12.0 - 16.0 G/DL 12/17/2016 12:14 PM CDT [facility] HCT 28.9(L) 36.0 - 47.0 % 12/17/2016 12:14 PM CDT [facility] PLASMA SPECIMEN / Unknown 12/17/2016 1:06 PM CDT 12/17/2016 12:08 PM CDT us Generic Conversion Md [facility] Final R esult [facility] [address] [place] [address], [id number] documented in this encounter Visit Diagnoses Not on filedocumented in this encounter
--- OUTSIDE RECORDS SUMMARY | 2024-03-20 22:47 | XMS_ITS | Encounter Summary ---
Author Organization [facility] Address [address] [place] [address]. [place] [address] [place] [address] Care Team Providers Care Inspector Technician Name Role Phone Unavailable Primary Care Provider Unavailabl e Encounter Details Date Type Department Care Team (Late st Contact Info) Description 12/18/2016 Orders Only [place] [address] , Generic Conversion, Social History [...] Procedure Name Priority Date/Time Associated Diagnosis Comments POCT GLUCOSE - HOOVER DOCKED DEVICE Routine 12/18/2016 12:03 AM CDT documented in this encounter Results * (ABNORMAL) POCT glucose (12/18/2016 12:03 AM CDT) GLUCOSE POC 121(H) 70 - 109 12/18/2016 11:30 AM CDT [facility] ORDERS INTERFACE WHOLE BLOOD SPECIMEN / Unknown 12/18/2016 12:03 AM CDT 12/18/2016 11:30 AM CDT us Generic Conversion Md [facility] POCT ORDERABLES - DEVIC E Final Result [facility] ORDERS INTERFACE US documented in this encounter Visit Diagnoses Not on filedocumented in this encounter
--- OUTSIDE RECORDS SUMMARY | 2024-03-20 22:47 | XMS_ITS | Encounter Summary ---
Author Organization [facility] Address [address] [place] [address]. [place], [place] [address] [place] [address] Care Team Providers Care Carpenter General Name Role Phone Jarret Kwong MD Primary Care Provider Go Hanna MD Unavailable Unavailable Encounter Details Date Type Department Care Team (Late st Contact Info) Description 01/11/2018 Orders Only [facility] [address] [place] [phone] Sylvia Ann, RN Social History Tobacco Use Types Packs/Day [...] on filedocumented in this encounter Care Teams Carpenter General Relationship Specialty Start Date End Date Jarret Kwong MD [address] [place] [phone] PCP - General FAMILY PRACTICE 12/27/17 Go Hanna MD [address] [place] [phone] INTERVENTIONAL CARDIOLOGY 12/27/17 04/23/19 documented as of this encounter
--- OUTSIDE RECORDS SUMMARY | 2024-03-20 22:47 | XMS_ITS | Encounter Summary ---
Author Organization [facility] Address [address] [place] [address]. [place] [address] [place] [address] Care Team Providers Care Chief Steward/Stewardess Name Role Phone Jarret Kwong MD Primary Care Provider Go Hanna MD Unavailable Unavailable Reason for Visit * Reason Comments Treadmill (SCAN) Encounter Details Date Type Department Care Team ([facility] Contact Info) Description 01/27/2018 Scan [facility] [address] [place] [phone] Go Hanna MD Treadmill (SCAN) Social History Tobacco Use Types Packs/Day Years [...] Procedure Name Priority Date/Time Associated Diagnosis Comments OUTSIDE LAB (SCAN ORDER) Routine 12/20/2017 documented in this encounter Results * OUTSIDE LAB (12/20/2017) 12/20/2017 Go Hanna MD SCANNING Final Result documented in this encounter Visit Diagnoses Not on filedocumented in this encounter Care Teams Chief Steward/Stewardess Relationship Specialty Start Date End Date Jarret Kwong MD [address] [place] [phone] PCP - General FAMILY PRACTICE 12/27/17 Go Hanna MD [address] [place] [phone] INTERVENTIONAL CARDIOLOGY 12/27/17 04/23/19 documented as of this encounter
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
--- OUTSIDE RECORDS SUMMARY | 2024-03-20 22:47 | XMS_ITS | Encounter Summary ---
Author Organization [facility] Address [address] [place] [address]. [place] [address] [place] [address] Care Team Providers Care Orthoptist Name Role Phone Jarret Kwong MD Primary Care Provider Go Hanna MD Unavailable Unavailable Encounter Details Date Type Department Care Team (Late st Contact Info) Description 01/20/2018 Scan [facility] [address] [place] [phone] Scanned, Documents Social History Tobacco Use Types Packs/Day Years [...] Procedure Name Priority Date/Time Associated Diagnosis Comments USE ECHOCARDIOGRAM Routine 01/20/2018 Mitral valve insufficiency, unspecified etiology documented in this encounter Results * USE ECHOCARDIOGRAM (01/20/2018) Anatomical Region Laterality Modality Cardiac Echocardiogram us Go Hanna MD ECHO Final Result documented in this encounter Visit Diagnoses Diagnosis Mitral valve insufficiency, unspecified etiology documented in this encounter Care Teams Orthoptist Relationship Specialty Start Date End Date Jarret Kwong MD [address] [place] [phone] PCP - General FAMILY PRACTICE 12/27/17 Go Hanna MD [address] [place] [phone] INTERVENTIONAL CARDIOLOGY 12/27/17 04/23/19 documented as of this encounter
--- OUTSIDE RECORDS SUMMARY | 2024-03-20 22:47 | XMS_ITS | Encounter Summary ---
Author Organization [facility] Address [address] [place] [address]. [place] [address] [place] [address] Care Team Providers Care Director Smb Sales Name Role Phone Jarret Kwong MD Primary Care Provider Go Hanna MD Unavailable Unavailable Encounter Details Date Type Department Care Team (Late st Contact Info) Description 07/28/2017 Abstract [facility] [address] [facility] [place] [address] Jarret Kwong MD [address] [place] [phone] Social History Tobacco Use Types Packs/Day Years Used Date Smoking Tobacco: Never Comments Unknown Sex and Gender Information Value Date Recorded Sex Assigned at Not on file Legal Sex Female 12:12 AM CDT Gender Identity Not on file Sexual Orientation Not on file documented as of this encounter Plan of Treatment Not on file documented as of this encounter Visit Diagnoses Diagnosis Other abnormal and inconclusive findings on diagnostic imaging of breast documented in this encounter Care Teams Director Smb Sales Relationship Specialty Start Date End Date Jarret Kwong MD [address] [place] [phone] PCP - General FAMILY PRACTICE 12/27/17 Go Hanna MD [address] [place] [phone] INTERVENTIONAL CARDIOLOGY 12/27/17 04/23/19 documented as of this encounter
--- OUTSIDE RECORDS SUMMARY | 2024-03-20 22:47 | XMS_ITS | Encounter Summary ---
Author Organization [facility] Address [address] [place] [address]. [place], [place] [address] [place] [address] Care Team Providers Care Space Operations Officer Name Role Phone Unavailable Primary Care Provider Unavailabl e Encounter Details Date Type Department Care Team (Latest Contact Info) Description 01/06/2017 Abstract [facility] Social History Tobacco Use Types Packs/Day Years [...]
--- OUTSIDE RECORDS SUMMARY | 2024-03-20 22:47 | XMS_ITS | Encounter Summary ---
Author Organization [facility] Address [address] [place] [address]. [place], [place] [phone] [place] [address] Care Team Providers Care Bosom Presser Name Role Phone Unavailable Primary Care Provider Unavailabl e Encounter Details Date Type Department Care Team (Latest Contact Info) Description 12/16/2016 Abstract [facility] Maury Cross MD [address] [place] [phone] Social History Tobacco Use Types Packs/Day [...] Procedure Name Priority Date/Time Associated Diagnosis Comments TYPE & SCREEN Routine 12/16/2016 3:44 PM CDT documented in this encounter Results * TYPE & SCREEN (12/16/2016 3:44 PM CDT) ABO/RH ABO/RH(D) ?- O POSITIVE ANTIBODY SCREEN ?- POSITIVE XM EXPIRATION ?- 12/19/2016 [facility] CON[facility] 12/16/2016 3:44 PM CDT 12/16/2016 3:44 PM CDT Narrative [facility] CONVERSION - 12/16/2016 5:01 PM CDT Result Communication: No patient communication needed at this time us Maury Cross MD BLOOD BANK TEST ORDERABLES Fin al Result [facility] CONVERSION documented in this encounter Visit Diagnoses Not on filedocumented in this encounter
--- OUTSIDE RECORDS SUMMARY | 2024-03-20 22:47 | XMS_ITS | Encounter Summary ---
Author Organization [facility] Address [address] [place] [address]. [place] [address] [place] [address] Care Team Providers Care Chain Pegger Name Role Phone Unavailable Primary Care Provider Unavailabl e Encounter Details Date Type Department Care Team (Late st Contact Info) Description 12/20/2016 Orders Only [place] [address] , Generic Conversion, Social History [...] Associated Diagnosis Comments HEMOGLOBIN AND HEMATOCRIT Routine 12/20/2016 6:26 AM CDT documented in this encounter Results * (ABNORMAL) HEMOGLOBIN AND HEMATOCRIT (12/20/2016 6:26 AM CDT) HGB 7.6(L) 12.0 - 16.0 G/DL 12/20/2016 6:07 AM CDT [facility] HCT 22.4(L) 36.0 - 47.0 % 12/20/2016 6:07 AM CDT [facility] PLASMA SPECIMEN / Unknown 12/20/2016 6:26 AM CDT 12/20/2016 5:48 AM CDT us Generic Conversion Md [facility] Final R esult [facility] [address] [place] [address], [id number] documented in this encounter Visit Diagnoses Not on filedocumented in this encounter
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
--- OUTSIDE RECORDS SUMMARY | 2024-03-20 22:47 | XMS_ITS | Encounter Summary ---
Author Organization [facility] Address [address] [place] [address]. [place], [place] [address] [place] [address] Care Team Providers Care Senior Research Associate Name Role Phone Unavailable Primary Care Provider Unavailabl e Encounter Details Date Type Department Care Team (Latest Contact Info) Description 07/01/[address] [facility] Medical [facility] Social History Tobacco Use Types [...]
--- OUTSIDE RECORDS SUMMARY | 2024-03-20 22:47 | XMS_ITS | Encounter Summary ---
Author Organization [facility] Address [address] [place] [address]. [place], [place] [address] [place] [address] Care Team Providers Care Analytical Chemistry Teacher Name Role Phone Unavailable Primary Care Provider Unavailabl e Encounter Details Date Type Department Care Team (Latest Contact Info) Description 01/11/2017 Abstract [facility] Medical [facility] Social History Tobacco Use Types Packs/Day Years Used Date Smoking Tobacco: Never Assessed Comments Unknown Sex and Gender Information Value Date Recorded Sex Assigned at Not on file Legal Sex Female 12:12 AM CDT Gender Identity Not on file Sexual Orientation Not on file documented as of this encounter Progress Notes * Zohra Chicas Md, MD - 01/11/2017 10:56 AM CDT Message Message: Pt called to cancel her appt for this week. She states that her hematoma has become soft and is much smaller. She will call if she is having any symptoms or concerns. Signatures Electronically signed by : Helena Guzman R.N.; Jan 11 2017 10:57AM SCORER SINGLE (Author) documented in this encounter Plan of Treatment Not on file documented as of this encounter Visit Diagnoses Not on filedocumented in this encounter
--- OUTSIDE RECORDS SUMMARY | 2024-03-20 22:47 | XMS_ITS | Encounter Summary ---
Author Organization [facility] Address [address] [place] [address]. [place] [address] [place] [address] Care Team Providers Care Sharepoint Solutions Architect Name Role Phone Jarret Kwong MD Primary Care Provider Go Hanna MD Unavailable Unavailable Encounter Details Date Type Department Care Team (Late st Contact Info) Description 07/21/2018 Abstract [facility] [address] [place] [address] Jarret Kwong MD [address] [place] [phone] Social History Tobacco Use Types Packs/Day [...] breast documented in this encounter Care Teams Sharepoint Solutions Architect Relationship Specialty Start Date End Date Jarret Kwong MD [address] [place] [phone] PCP - General FAMILY PRACTICE 12/27/17 Go Hanna MD [address] [place] [phone] INTERVENTIONAL CARDIOLOGY 12/27/17 04/23/19 documented as of this encounter
--- OUTSIDE RECORDS SUMMARY | 2024-03-20 22:47 | XMS_ITS | Encounter Summary ---
Author Organization [facility] Address [address] [place] [address]. [place] [address] [place] [address] Care Team Providers Care Electric Organ Assembler Name Role Phone Jarret Kwong MD Primary Care Provider Go Hanna MD Unavailable Unavailable Reason for Visit * Reason Comments ECG (SCAN) Encounter Details Date Type Department Care Team (Late st Contact Info) Description 01/27/2018 Scan [facility] [address] [place] [phone] Scanned, Documents ECG (SCAN) Social History Tobacco Use Types Packs/Day [...] Procedure Name Priority Date/Time Associated Diagnosis Comments ECG GENERIC (SCAN ORDER) Routine 09/28/2017 STRESS TEST (SCAN ORDER) Routine 12/14/2013 documented in this encounter Results * ECG (09/28/2017) us Documents Scanned SCANNING Final Result * STRESS TEST (12/14/2013) us Documents Scanned SCANNING Final Result documented in this encounter Visit Diagnoses Not on filedocumented in this encounter Care Teams Electric Organ Assembler Relationship Specialty Start Date End Date Jarret Kwong MD [address] [place] [phone] PCP - General FAMILY PRACTICE 12/27/17 Go Hanna MD [address] [place] [phone] INTERVENTIONAL CARDIOLOGY 12/27/17 04/23/19 documented as of this encounter
--- OUTSIDE RECORDS SUMMARY | 2024-03-20 22:47 | XMS_ITS | Encounter Summary ---
Author Organization [facility] Address [address] [place] [address]. [place] [address] [place] [address] Care Team Providers Care Organic Search Lead Name Role Phone Unavailable Primary Care Provider Unavailabl e Encounter Details Date Type Department Care Team (Late st Contact Info) Description 12/21/2016 Orders Only [place] [address] , Generic Conversion, Social History [...] Date/Time Associated Diagnosis Comments CBC W/DIFF AUTOMATED TIMED 12/21/2016 6:26 AM CDT documented in this encounter Results * (ABNORMAL) CBC W/DIFF AUTOMATED (12/21/2016 6:26 AM CDT) WBC 5.9 4.0 - 10.8 x10'3/uL 12/21/2016 5:58 AM CDT [facility] RBC 2.41(L) 4.10 - 5.40 x10'6/uL 12/21/2016 5:58 AM CDT [facility] HGB 7.3(L) 12.0 - 16.0 G/DL 12/21/2016 5:58 AM CDT [facility] HCT 22.6(L) 36.0 - 47.0 % 12/21/2016 5:58 AM CDT [facility] MCV 93.8 78.0 - 100.0 FL 12/21/2016 5:58 AM CDT [facility] MCH 30.3 27.0 - 31.0 PG 12/21/2016 5:58 AM CDT [facility] MCHC 32.3(L) 33.0 - 36.0 G/DL 12/21/2016 5:58 AM CDT [facility] RDW 13.2 11.5 - 14.5 % 12/21/2016 5:58 AM CDT [facility] PLT 222 150 - 350 x10'3/uL 12/21/2016 5:58 AM CDT [facility] MPV 11.4(H) 7.4 - 10.4 FL 12/21/2016 5:58 AM CDT [facility] ABS. NEUTROPHILS TOTAL 4.04 1.60 - 8.30 x10'3/uL 12/21/2016 5:58 AM CDT [facility] ABS. LYMPHOCYTES 0.96 0.80 - 4.70 x10'3/uL 12/21/2016 5:58 AM CDT [facility] ABS. MONOCYTES 0.52 0.00 - 1.50 x10'3/uL 12/21/2016 5:58 AM CDT [facility] ABS. EOSINOPHILS 0.25 0.00 - 0.40 x10'3/uL 12/21/2016 5:58 AM CDT [facility] ABS. BASOPHILS 0.03 0.00 - 0.20 x10'3/uL 12/21/2016 5:58 AM CDT [facility] ABS. IMMATURE GRANULOCYTES 0.06(H) 0.00 - 0.03 x10'3/uL 12/21/2016 5:58 AM CDT [facility] ABS. NUCLEATED RBC'S 0.00 0.0 x10'3/uL 12/21/2016 5:58 AM CDT [facility] PLASMA SPECIMEN / Unknown 12/21/2016 6:26 AM CDT 12/21/2016 5:34 AM CDT us Generic Conversion Md [facility] Final R esult [facility] [address] [place] [address], [place] [phone] [id number] documented in this encounter Visit Diagnoses Not on filedocumented in this encounter
--- OUTSIDE RECORDS SUMMARY | 2024-03-20 22:47 | XMS_ITS | Encounter Summary ---
Author Organization [facility] Address [address] [place] [address]. [place] [address] [place] [address] Care Team Providers Care Field Geologist Name Role Phone Jarret Kwong MD Primary Care Provider Go Hanna MD Unavailable Unavailable Reason for Visit * Reason Comments Nuclear Medicine Report (SCAN) Encounter Details Date Type Department Care Team (Late st Contact Info) Description 01/27/2018 Scan [facility] [address] [place] [phone] Scanned, Documents Nuclear Medicine Report (SCAN) Social History Tobacco Use Types Packs/Day [...] on filedocumented in this encounter Care Teams Field Geologist Relationship Specialty Start Date End Date Jarret wKong MD [address] [place] [phone] PCP - General FAMILY PRACTICE 12/27/17 Go Hanna MD [address] [place] [phone] INTERVENTIONAL CARDIOLOGY 12/27/17 04/23/19 documented as of this encounter
--- OUTSIDE RECORDS SUMMARY | 2024-03-20 22:47 | XMS_ITS | Encounter Summary ---
Author Organization [facility] Address [address] [place] [address]. [place] [address] [place] [address] Care Team Providers Care Director Life Insurance Name Role Phone Unavailable Primary Care Provider Unavailabl e Encounter Details Date Type Department Care Team (Late st Contact Info) Description 12/17/2016 Orders Only [place] [address] , Generic Conversion, Social History [...] Date/Time Associated Diagnosis Comments BASIC METABOLIC PANEL TIMED 12/17/2016 1:07 PM CDT documented in this encounter Results * (ABNORMAL) BASIC METABOLIC PANEL (12/17/2016 1:07 PM CDT) SODIUM S/P/B 133(L) 135 - 147 MMOL/L 12/17/2016 12:34 PM CDT [facility] POTASSIUM S/P/B 4.8 3.5 - 5.0 MMOL/L 12/17/2016 12:34 PM CDT [facility] CHLORIDE S/P/B 104 98 - 107 MMOL/L 12/17/2016 12:34 PM CDT [facility] CO2 23.0 22 - 29 MMOL/L 12/17/2016 12:34 PM CDT [facility] GLUCOSE 126(H) 70 - 109 MG/DL 12/17/2016 12:34 PM CDT [facility] BUN 24(H) 10 - 20 MG/DL 12/17/2016 12:34 PM CDT [facility] CREATININE S/P/B 0.77 0.60 - 1.10 MG/DL 12/17/2016 12:34 PM CDT [facility] CALCIUM S/P/B 7.6(L) 8.8 - 10.0 MG/DL 12/17/2016 12:34 PM CDT [facility] EGFR NON-AFR. AMER. 73 >60 ML/MIN/1.7 3 M2 12/17/2016 12:34 PM CDT [facility] EGFR AFR. AMER. 89 >60 ML/MIN/1.7 3 M2 12/17/2016 12:34 PM CDT [facility] ANION GAP 6.0 MMOL/L 12/17/2016 12:34 PM CDT [facility] OSMOLALITY (CALC) 272 MOSM/KG 12/17/2016 12:34 PM CDT [facility] PLASMA SPECIMEN / Unknown 12/17/2016 1:07 PM CDT 12/17/2016 12:08 PM CDT us Generic Conversion Md [facility] Final R esult [facility] [address] [place] [address], [phone] documented in this encounter Visit Diagnoses Not on filedocumented in this encounter
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
--- OUTSIDE RECORDS SUMMARY | 2024-03-20 22:47 | XMS_ITS | Encounter Summary ---
Author Organization [facility] Address [address] [place] [address]. [place], [place] [phone] [place] [address] Care Team Providers Care Geriatric Case Manager Name Role Phone Unavailable Primary Care Provider Unavailabl e Encounter Details Date Type Department Care Team (Late st Contact Info) Description 01/01/2017 Abstract [facility] - [place] [address] [place] [address] Social History Tobacco Use Types Packs/Day Years Used Date Smoking Tobacco: Never Comments Unknown Sex and Gender Information Value Date Recorded Sex Assigned at Not on file Legal Sex Female 12:12 AM CDT Gender Identity Not on file Sexual Orientation Not on file documented as of this encounter Plan of Treatment Not on file documented as of this encounter Visit Diagnoses Diagnosis Abnormal findings on diagnostic imaging of other specified body structures documented in this encounter
--- OUTSIDE RECORDS SUMMARY | 2024-03-20 22:47 | XMS_ITS | Encounter Summary ---
Author Organization [facility] Address [address] [place] [address]. [place] [address] [place] [address] Care Team Providers Care Machine Edge Bander Name Role Phone Jarret Kwong MD Primary Care Provider [phone] Go Hanna MD Unavailable Unavailable Reason for Visit * Reason Onset Date Comments Appointment Request 08/30/2018 Encounter Details Date Type Department Care Team (Late st Contact Info) Description 08/30/2018 Telephone [facility] [address] [place] [address] Go Hanna MD Appointment Request Social History Tobacco Use Types Packs/Day Years Used Date Smoking Tobacco: Never Smokeless Tobacco: Never Comments Unknown Sex and Gender Information Value Date Recorded Sex Assigned at Not on file Legal Sex Female 12:12 AM CDT Gender Identity Not on file Sexual Orientation Not on file documented as of this encounter Progress Notes * Marylou Salmeron RN - 08/30/2018 2:38 PM CDT Pt requesting call back to schedule appt with Dr Hanna, please return call to documented in this encounter Plan of Treatment Not on file documented as of this encounter Visit Diagnoses Not on filedocumented in this encounter Care Teams Machine Edge Bander Relationship Specialty Start Date End Date Jarret Kwong MD [address] [place] [phone] PCP - General FAMILY PRACTICE 12/27/17 Go Hanna MD [address] [place] [phone] INTERVENTIONAL CARDIOLOGY 12/27/17 04/23/19 documented as of this encounter
--- OUTSIDE RECORDS SUMMARY | 2024-03-20 22:47 | XMS_ITS | Encounter Summary ---
Author Organization [facility] Address [address] [place] [address]. [place] [address] [place] [address] Care Team Providers Care Industrial Spraypainter Name Role Phone Jarret Kwong MD Primary Care Provider Go Hanna MD Unavailable Unavailable Reason for Visit * Reason Onset Date Comments Concerns 10/10/2018 Encounter Details Date Type Department Care Team (Late st Contact Info) Description 10/10/2018 Telephone [facility] [address] [place] [address] Go Hanna MD Concerns Social History Tobacco Use Types Packs/Day Years [...] as of this encounter Progress Notes * Sylvia Ann, RN - 10/10/2018 4:01 PM CDT Spoke with pt on phone, states is breathless and states felt like this before she had an ablation. Denies any palpitations. Pt did sound SOB on phone. States feels weak and tired States hasn't event gotten her mail yet today as she is to tired. Advised pt she needs to go to nearest ER to be evaluated. Pt verbalizes understanding and has no further questions. * Kelli Montero - 10/10/2018 11:21 AM CDT Patient called c/o real short of breath, weak, has to use a walker even around the house. Call her back at [phone] documented in this encounter Plan of Treatment Not on file documented as of this encounter Visit Diagnoses Not on filedocumented in this encounter Care Teams Industrial Spraypainter Relationship Specialty Start Date End Date Jarret Kwong MD [address] [place] [phone] PCP - General FAMILY PRACTICE 12/27/17 Go Hanna MD [address] [place] [phone] INTERVENTIONAL CARDIOLOGY 12/27/17 04/23/19 documented as of this encounter
--- OUTSIDE RECORDS SUMMARY | 2024-03-20 22:47 | XMS_ITS | Encounter Summary ---
Author Organization [facility] Address [address] [place] [address]. [place] [address] [place] [address] Care Team Providers Care Investigations Manager Name Role Phone Jarret Kwong MD Primary Care Provider Go Hanna MD Unavailable Unavailable Reason for Referral * Imaging (Routine) - Closed Specialty Diagnoses / Procedures Referred By Contact Referred To Contact CARDIOVASCULAR DISEASE Diagnoses Non-rheumatic mitral regurgitation Procedures USE TRANSESOPHAGEAL ECHO Logan Wadwsorth MD [facility] [address] [place] [address] Phone: tel: fax: Referral ID Status Reason Start Date Expiration Date Visits Re quested Visits Authorized [id number] Closed 01/24/2018 2019 1 1 Encounter Details Date Type Department Care Team (Late st Contact Info) Description 01/24/2018 Orders Only [facility] [address] [place] [phone] Logan Wadsworth MD Social History Tobacco Use Types Packs/Day [...] as of this encounter Results * USE TRANSESOPHAGEAL ECHO (10/03/2018 11:04 AM CDT) Anatomical Region Laterality Modality Cardiac Echocardiogram, Cardiac Electrophysiology, Cardiac Electrophysiology 10/03/2018 9:50 AM CDT Narrative 10/03/2018 5:54 PM CDT ?Transesophageal Echocardiography Report Pat.Name: ??EMERALD KLEIN ?Pat.ID: ?[id number] ? St.Date: ?? 10/03/2018 ? Refer.MD: ??[id number], LOGAN WADSWORTH Exam Time: 9:50:00 AM ? Study Type:TRANSESOPHAGEAL ECHO (WALDO) Height: ?157cm ? Weight: ?61kg ? BSA: ? 1.61 m2 ?Age: ??1940,78Y ? Sex: ? FEMALE ?BP: ?110/50 ? HR: ?60 bpm ?Sonogrphr: Katharina Sky RDCS ? Pat. Stat.:Outpatient ?Room: ?CVD ? CPT: ?? 00334 [id number] ? Reason for Study:MR ? Procedures:2D, 3 Dimensional imaging with full Doppler and color interigation, Doppler, Color Flow, Intraveneous saline contrast was used to help determine presence of intracardiac shunting., Transesophageal Race: ?W ? ++++++++++++++++++++++++++++++++++++ SUMMARY: ++++++++++++++++++++++++++++++++++++ -Normal left ventricular cavity size with normal contractility, estimated LVEF 60 to 65%. ??There is severe basal septal hypertrophy measuring 1.8 cm, and only mild hypertrophy in all other wall segments. -There is no evidence of dynamic LVOT obstruction at rest, or with the Valsalva maneuver (transthoracic hemodynamics were performed prior to the WALDO). ??During the WALDO, there was no mitral ALEX, and no outflow gradient. 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 ??The regurgitation occurs between A2/P2, most pronounced at the medial aspect. ??There appears to be some thinning of the medial aspect of A2, and the medial aspect of P2, where most of the regurgitation occurs. ??I do not see any torn cords, prolapse or flail. The vena contracta area using 3D color Doppler is >1 cm2, which is huge. ??There are systolic reversals in the pulmonary veins. -Other MV measurements: Posterior leaflet length 8 mm; Mitral valve area (orifice) measures 2.9 cm2. ??Mitral gradient 2 mmHg at 65 bpm. Septal to leaflet coaptation distance up to 4.6 cm. There is mild annular calcification. -Mild tricuspid regurgitation; sclerotic aortic valve with normal function. -Severe left atrial enlargement, mild right atrial enlargement -Atrial septal aneurysm with PFO. ??Small left to right shunt with color Doppler. ??No right to left shunting was demonstrated with saline contrast study however she was not able to cooperate with the Valsalva maneuver. ??I suspect that we would see right to left shunting if she could have done so. Comment: This patient's mitral orifice and annular size is very small, which is a contraindication to the MitraClip procedure. ??We could do CT modeling to see if she would be a candidate for an Dawn James TMVR, or an AltaValve, or a Tendyne valve. ??We will discuss in the Structural Heart group meeting. ++++++++++++++++++++++++++++++++++++ FINDINGS: ++++++++++++++++++++++++++++++++++++ WALDO: ?The patient was counseled and an informed consent was ?obtained. ??The posterior pharynx was anesthetized. The ?patient ??was placed in a left lateral recumbent position and ?a ??plastic bite was inserted into the mouth. IV sedation was ?administered. ??The transesophageal echo probe was inserted ?into ??the posterior pharynx and the esophagus was then ?intubated ??without difficulty. Multiple views were then ?obtained ??from the upper, mid, and lower esophagus and the ?gastric ??fundus. The scope was rotated 180 degrees and the ?aorta ??was visualized. The scope was withdrawn under ?continuous ??suction. The patient tolerated the procedure ?well ??without any apparent complications. LV: ? The left ventricular size is normal. The left ventricular ?systolic ??function is normal. Estimated left ventricular ?ejection ??fraction is 60-65%. Mild concentric left ?ventricular ??hypertrophy. WM: ? Wall motion appears normal in all segments. LVOT: ? The left ventricular outflow tract size is normal. RV: ? The right ventricle size is normal. The right ventricular ?function ??is normal. IVS: ?Asymmetric hypertrophy of the left ventricular basal septum ?is ??noted. LA: ? The left atrial size is severely enlarged. Left atrial ?appendage ??shows no evidence of thrombus. RA: ? Right atrial size is mildly enlarged. IAS: ?Atrial septum shows evidence of small patent foramen ovale. JESSICA: ? No evidence of pericardial effusion. AO: ? The aorta is atherosclerotic. PA: ? The peak pulmonary artery systolic pressure is estimated to ?be ??approximately 28mmHg + RAP mmHg. AV: ? The aortic valve is trileaflet. No evidence of aortic valve ?stenosis. ??No evidence of aortic valve regurgitation. Mild ?aortic ??valve sclerosis. MV: ? Severe mitral regurgitation with a measures ERO of >1cm^2 by ?3D ??Color. No evidence of mitral stenosis. Mildly calcified ?anterior ??and posterior mitral annulus. Myxomatous ?degeneration ??of mitral valve. The mean gradient across the ?mitral ??valve is 2 at a heart rate of 63. The mitral valve ?area ??by 3D planimetry is 2.8cm^2. Spectral Doppler of the ?pulmonary ??veins demonstrates systolic flow reversal which ?indicates ??severe mitral regurgitation. Septal to leaflet ?coaptation ??distance is 4.6cm. The posterior leaflet ?measures ??8mm. PV: ? The pulmonic valve is normal There is trace pulmonic ?regurgitation TV: ? Mild tricuspid regurgitation. Moderate thickening of ?tricuspid ??valve leaflets. No evidence of tricuspid valve ?stenosis. ++++++++++++++++++++++++++++++++++++ WALDO: ++++++++++++++++++++++++++++++++++++ Pre WALDO ?BP ?? HR ? Post WALDO ? BP ?? HR ?110/50 60 Meds: ?Benzocaine spray was used with 2 sprays., Midazolam/Versed 6 mg IV, Fentanyl 50 mcg IV Complications: None ? Condition: Good ? Comments: ??49 ? ++++++++++++++++++++++++++++++++++++ MEASUREMENTS: ++++++++++++++++++++++++++++++++++++ ?2D Ventricular Septum ?? IVSd ?1.79 cm ?DOPPLER MV Forward Flow MV mnPG ?2 mmHg ?MV pkPG ?4 mmHg LA QLab HM Left Atrium Min ?48 ml ? Left Atrium Max ?54 ml/m2 Left Atrium Max ?86 ml ? Left Atrium Eje ?44 % ?? LV QLab Patient Height ?157 cm ? Body Surface Ar 79689 cm2 Patient Weight ??19451 g ? LV QLab HM LVEF ?68 % ? Left Ventricula ?? 172 g ?? SV ?64 ml ?CI ?2.66 l/min/m2 Left Ventricula ?95 ml ? Left Ventricle ? 60 % ?? LV Base to [place] ?? 8.5 cm ? Left Ventricle ? 30 % ?? LV Base to [place] ?? 6.4 cm ? Left Ventricle ? 54 % ?? Left Ventricula ?30 ml ? Heart rate ?66 bpm Signed 10/03/2018 05:54 PM Logan Wadsworth M.D. Procedure Note Logan Wadsworth MD - 10/03/2018 Transesophageal Echocardiography Report Pat.Name: EMERALD KLEIN Pat.ID: [id number] .Date: 10/03/2018 Refer.MD: [id number], LOGAN WADSWORTH Exam Time: 9:50:00 AM Study Type:TRANSESOPHAGEAL ECHO (WALDO) Height: 157cm Weight: 61kg BSA: 1.61 m2 Age: 11 1940,78Y Sex: FEMALE BP: 110/50 HR: 60 bpm Sonogrphr: Katharina Sky RDCS Pat. Stat.:Outpatient Room: CVD CPT: 53979 [id number] Reason for Study:MR Procedures:2D, 3 Dimensional imaging with full Doppler and color interigation, Doppler, Color Flow, Intraveneous saline contrast was used to help determine presence of intracardiac shunting., Transesophageal Race: W ++++++++++++++++++++++++++++++++++++ SUMMARY: ++++++++++++++++++++++++++++++++++++ -Normal left ventricular cavity size with normal [...] normal. Estimated left ventricular ejection fraction is 60-65%. Mild concentric left ventricular hypertrophy. WM: Wall motion appears normal in all segments. LVOT: The left ventricular outflow tract size is normal. RV: The right ventricle size is normal. The right ventricular function is normal. IVS: Asymmetric hypertrophy of the left ventricular basal septum is [...] Patient Height 157 cm Body Surface Ar 26788 cm2 Patient Weight 47374 g LV QLab HM LVEF 68 % Left Ventricula 172 g SV 64 ml CI 2.66 l/min/m2 Left Ventricula 95 ml Left Ventricle 60 % LV Base to [place] 8.5 cm Left Ventricle 30 % LV Base to [place] 6.4 cm Left Ventricle 54 % Left Ventricula 30 ml Heart rate 66 bpm Signed 10/03/2018 05:54 PM Logan Wadsworth M.D. Logan Wadsworth MD ECHO Final Result documented in this encounter Visit Diagnoses Diagnosis Non-rheumatic mitral regurgitation- Primary Mitral valve disorders Non-rheumatic mitral regurgitation Mitral valve disorders documented in this encounter Care Teams Investigations Manager Relationship Specialty Start Date End Date Jarret Kwong MD [address] [place] [phone] PCP - General FAMILY PRACTICE 12/27/17 Go Hanna MD [address] [place] [phone] INTERVENTIONAL CARDIOLOGY 12/27/17 04/23/19 documented as of this encounter
--- OUTSIDE RECORDS SUMMARY | 2024-03-20 22:47 | XMS_ITS | Encounter Summary ---
Author Organization [facility] Address [address] [place] [address]. [place], [place] [address] [place] [address] Care Team Providers Care Certified Ophthalmic Surgical Assistant Name Role Phone Unavailable Primary Care Provider Unavailabl e Encounter Details Date Type Department Care Team (Latest Contact Info) Description 12/18/2016 Abstract [facility] Maury Hillman MD [address] [place] [phone] Social History Tobacco Use Types Packs/Day [...] Procedure Name Priority Date/Time Associated Diagnosis Comments CARDIOLOGY GENERIC Routine 12/18/2016 8: 22 AM CDT documented in this encounter Results * CARDIOLOGY GENERIC (12/18/2016 8:22 AM CDT) 12/18/2016 8:22 AM CDT 12/18/2016 8:22 AM CDT Narrative [facility] TO EPIC CONVERSION - 12/18/2016 10:35 PM CDT [facility] ? [address] [place], [place] ??[address] ? Test Date: ?2016-12-18 Pat Name: ? EMERALD KLEIN ?Department: ?? 1 ? Room: ? TSI Gender: ? Female ? Video Specialist: ?? Carlos Leija EMT-P : ?1940 ? Requested By: MAURY LIVINGSTONWDA Order Number: [id number] ? Reading MD: ?? Jean Carlos Patel ? Measurements Intervals ?[place] ? Rate: ? 99 ? P: ?86 WV: ? 212 ?QRS: ?-56 QRSD: ? 85 ? T: ?57 QT: ? 363 ? QTc: ?467 ? Interpretive Statements SINUS RHYTHM WITH FIRST DEGREE AV BLOCK LEFT ANTERIOR FASCICULAR BLOCK NONSPECIFIC T-WAVE ABNORMALITY Procedure Note Md, Generic Conversion, - 01/28/2018 [facility] [address] [place] [address] Test Date: 2016-12-18 Pat Name: EMERALD KLEIN Department: 1 Room: [facility] Gender: Female Video Specialist: Carlos Leija EMT-P : 1940 Requested By: MAURY HILLMAN Order Number: [id number] Reading MD: Jean Carlos Patel Measurements Intervals [place] Rate: 99 P: 86 WV: 212 QRS: -56 QRSD: 85 T: 57 QT: 363 QTc: 467 Interpretive Statements SINUS RHYTHM WITH FIRST DEGREE AV BLOCK LEFT ANTERIOR FASCICULAR BLOCK NONSPECIFIC T-WAVE ABNORMALITY us Maury Hillman MD [facility] Final Result [facility] TO EPIC CONVERSION documented in this encounter Visit Diagnoses Not on filedocumented in this encounter
--- OUTSIDE RECORDS SUMMARY | 2024-03-20 22:47 | XMS_ITS | Encounter Summary ---
Author Organization [facility] Address [address] [place] [address]. [place], [place] [address] [place] [address] Care Team Providers Care Investigation Manager Name Role Phone Unavailable Primary Care Provider Unavailabl e Encounter Details Date Type Department Care Team (Latest Contact Info) Description 12/18/2016 Abstract [facility] Social History Tobacco Use Types [...]
--- OUTSIDE RECORDS SUMMARY | 2024-03-20 22:47 | XMS_ITS | Encounter Summary ---
Author Organization [facility] Address [address] [place] [address]. [place] [address] [place] [address] Care Team Providers Care Business Transformation Analyst Name Role Phone Jarret Kwong MD Primary Care Provider Go Hanna MD Unavailable Unavailable Robbin Urban MD Unavailable [phone] Encounter Details Date Type Department Care Team (Late st Contact Info) Description 09/10/2018 Abstract [facility] [address] [address] , Generic Conversion, Social History Tobacco Use [...] documented as of this encounter Care Teams Business Transformation Analyst Relationship Specialty Start Date End Date Jarret Kwong MD [address] [place] [phone] PCP - General FAMILY PRACTICE 12/27/17 Go Hanna MD [address] [place] [address] [place] [phone] INTERVENTIONAL CARDIOLOGY 12/27/17 04/23/19 Robbin Urban MD [address] [place], [place] [address] [facility] Supervisor CARDIOVASCULAR DISEASE 04/24/19 documented as of this encounter
--- OUTSIDE RECORDS SUMMARY | 2024-03-20 22:47 | XMS_ITS | Encounter Summary ---
Author Organization [facility] Address [address] [place] [address]. 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
--- OUTSIDE RECORDS SUMMARY | 2024-03-20 22:47 | XMS_ITS | Encounter Summary ---
Author Organization [facility] Address [address] [place] [address]. [place] [address] [place] [address] Care Team Providers Care Saddle Maker Name Role Phone Unavailable Primary Care Provider Unavailabl e Encounter Details Date Type Department Care Team (Late st Contact Info) Description 12/17/2016 Orders Only [place] [address] , Generic Conversion, Social History [...] Procedure Name Priority Date/Time Associated Diagnosis Comments MRSA SCREENING Nurse Collected Priority 12/17/2016 12:14 AM CDT documented in this encounter Results * MRSA SCREENING (12/17/2016 12:14 AM CDT) SPECIMEN SOURCE RESPIRATORY, NOSE 12/16/2016 10:15 PM CDT [facility] MRSA BY PCR NASAL METHICILLIN RESISTANT STAPH AUREUS NOT DETECTED 12/17/2016 10:57 AM CDT [facility] 12/17/2016 12:1 4 AM CDT 12/17/2016 12:27 AM CDT us Generic Conversion Md [facility] - GENERAL ORDERABLES Final Result [facility] [address] [place] [address], [phone] documented in this encounter Visit Diagnoses Not on filedocumented in this encounter
--- OUTSIDE RECORDS SUMMARY | 2024-03-20 22:47 | XMS_ITS | Encounter Summary ---
Author Organization [facility] Address [address] [place] [address]. [place], [place] [address] [place] [address] Care Team Providers Care Electric Power Superintendent Name Role Phone Jarret Kwong MD Primary Care Provider Go Hanna MD Unavailable Unavailable Encounter Details Date Type Department Care Team (Late st Contact Info) Description 01/20/2018 Orders Only [facility] [address] [place] [phone] Sylvia Ann, RN Social History Tobacco Use [...] filedocumented in this encounter Care Teams Electric Power Superintendent Relationship Specialty Start Date End Date Jarret Kwong MD [address] [place] [phone] PCP - General FAMILY PRACTICE 12/27/17 Go Hanna MD [address] [place] [phone] INTERVENTIONAL CARDIOLOGY 12/27/17 04/23/19 documented as of this encounter
--- OUTSIDE RECORDS SUMMARY | 2024-03-20 22:47 | XMS_ITS | Encounter Summary ---
Author Organization [facility] Address [address] [place] [address]. [place] [address] [place] [address] Care Team Providers Care Tie Puller Name Role Phone Jarret Kwong MD Primary Care Provider Go Hanna MD Unavailable Unavailable Reason for Visit * Reason Comments Echo (SCAN) Encounter Details Date Type Department Care Team ([facility] Contact Info) Description 01/20/2018 [facility] [address] [place] [phone] Scanned, Documents Echo (SCAN) Social History Tobacco Use Types Packs/Day [...] Procedure Name Priority Date/Time Associated Diagnosis Comments STRESS TEST (SCAN ORDER) Routine 07/20/2016 ECHO GENERIC (SCAN ORDER) Routine 09/12/2013 documented in this encounter Results * STRESS TEST (07/20/2016) us Documents Scanned SCANNING Final Result * ECHO (09/12/2013) Anatomical Region Laterality Modality Other us Documents Scanned SCANNING Final Result documented in this encounter Visit Diagnoses Not on filedocumented in this encounter Care Teams Tie Puller Relationship Specialty Start Date End Date Jarret Kwong MD [address] [place] [phone] PCP - General FAMILY PRACTICE 12/27/17 Go Hanna MD [address] [place] [phone] INTERVENTIONAL CARDIOLOGY 12/27/17 04/23/19 documented as of this encounter
--- OUTSIDE RECORDS SUMMARY | 2024-03-20 22:47 | XMS_ITS | Encounter Summary ---
Author Organization [facility] Address [address] [place] [address]. [place] [address] [place] [address] Care Team Providers Care Snow Shoveler Name Role Phone Jarret Kwong MD Primary Care Provider Go Hanna MD Unavailable Unavailable Reason for Visit * Reason Onset Date Comments Medication Request 05/25/2018 Encounter Details Date Type Department Care Team (Late st Contact Info) Description 05/25/2018 Telephone [facility] [address] [place] [address] Go Hanna MD Medication Request Social History Tobacco Use Types Packs/Day Years Used Date Smoking Tobacco: Never Smokeless Tobacco: Never Comments Unknown Sex and Gender Information Value Date Recorded Sex Assigned at Not on file Legal Sex Female 12:12 AM CDT Gender Identity Not on file Sexual Orientation Not on file documented as of this encounter Progress Notes * Randee Abdi LPN - 05/25/2018 3:40 PM CST Refill given on Pradexa only , as we do not monitor Amiodarone. escript sent for pradexa and calledto pharm to make aware of denial on Amiodarone. OFFICER * Kelli Montero - 05/25/2018 3:23 PM CST Pharmacy called, patient needs refill of her Pradaxa 150mg and amiodarone. Can call pharmacy at [phone] OFFICER documented in this encounter Plan of Treatment Not on file documented as of this encounter Visit Diagnoses Not on filedocumented in this encounter Care Teams Snow Shoveler Relationship Specialty Start Date End Date Jarret Kwong MD [address] [place] [phone] PCP - General FAMILY PRACTICE 12/27/17 Go Hanna MD [address] [place] [phone] INTERVENTIONAL CARDIOLOGY 12/27/17 04/23/19 documented as of this encounter
--- OUTSIDE RECORDS SUMMARY | 2024-03-20 22:47 | XMS_ITS | Encounter Summary ---
Author Organization [facility] Address [address] [place] [address]. [place] [address] [place] [address] Care Team Providers Care Registrar Museum Name Role Phone Jarret Kwong MD Primary Care Provider Go Hanna MD Unavailable Unavailable Encounter Details Date Type Department Care Team (Late st Contact Info) Description 05/30/2018 Abstract [facility] [address] [facility] [place] [address] Jarret Kwong MD [address] [place] [phone] Social History Tobacco Use Types Packs/Day [...] on filedocumented in this encounter Care Teams Registrar Museum Relationship Specialty Start Date End Date Jarret Kwong MD [address] [place] [phone] PCP - General FAMILY PRACTICE 12/27/17 Go Hanna MD [address] [place] [phone] INTERVENTIONAL CARDIOLOGY 12/27/17 04/23/19 documented as of this encounter
--- OUTSIDE RECORDS SUMMARY | 2024-03-20 22:47 | XMS_ITS | Encounter Summary ---
Author Organization [facility] Address [address] [place] [address]. [place] [address] [place] [address] Care Team Providers Care Bobbin Handler Name Role Phone Jarret Kwong MD Primary Care Provider Go Hanna MD Unavailable Unavailable Encounter Details Date Type Department Care Team (Late st Contact Info) Description 01/20/2018 [facility] [address] [place] [phone] Go Hanna MD Social History Tobacco Use [...] on filedocumented in this encounter Care Teams Bobbin Handler Relationship Specialty Start Date End Date Jarret Kwong MD [address] [place] [phone] PCP - General FAMILY PRACTICE 12/27/17 Go Hanna MD [address] [place] [phone] INTERVENTIONAL CARDIOLOGY 12/27/17 04/23/19 documented as of this encounter
--- OUTSIDE RECORDS SUMMARY | 2024-03-20 22:47 | XMS_ITS | Encounter Summary ---
Author Organization [facility] Address [address] [place] [address]. [place] [address] [place] [address] Care Team Providers Care Beer Still Runner Compounder Name Role Phone Jarret Kwong MD Primary Care Provider Go Hanna MD Unavailable Unavailable Reason for Visit * Reason Onset Date Comments Information 05/03/2018 Encounter Details Date Type Department Care Team (Late st Contact Info) Description 05/03/2018 Telephone [facility] [address] [place] [address] Go Hanna MD Information Social History Tobacco Use Types Packs/Day Years Used Date Smoking Tobacco: Never Smokeless Tobacco: Never Comments Unknown Sex and Gender Information Value Date Recorded Sex Assigned at Not on file Legal Sex Female 12:12 AM CDT Gender Identity Not on file Sexual Orientation Not on file documented as of this encounter Progress Notes * Kelli Montero - 05/03/2018 10:20 AM CST Patient called, says she wants to apologize to Dr. Hanna and his staff but she will not be able to have her heart test in May like she told them back in March. Her daughter is her transportation and her daughter is having health issues right now. Patient will call back to schedule later intspring. BOSS documented in this encounter Plan of Treatment Not on file documented as of this encounter Visit Diagnoses Not on filedocumented in this encounter Care Teams Beer Still Runner Compounder Relationship Specialty Start Date End Date Jarret Kwong MD [address] [place] [phone] PCP - General FAMILY PRACTICE 12/27/17 Go Hanna MD [address] [place] [phone] INTERVENTIONAL CARDIOLOGY 12/27/17 04/23/19 documented as of this encounter
--- OUTSIDE RECORDS SUMMARY | 2024-03-20 22:47 | XMS_ITS | Encounter Summary ---
Author Organization [facility] Address [address] [place] [address]. [place], [place] [address] [place] [address] Care Team Providers Care Pan Pusher Name Role Phone Unavailable Primary Care Provider Unavailabl e Encounter Details Date Type Department Care Team (Latest Contact Info) Description 12/19/2016 Abstract [facility] Medical [facility] Social History Tobacco [...]
--- OUTSIDE RECORDS SUMMARY | 2024-03-20 22:47 | XMS_ITS | Encounter Summary ---
Author Organization [facility] Address [address] [place] [address]. [place] [address] [place] [address] Care Team Providers Care Excellence Specialist Name Role Phone Jarret Kwong MD Primary Care Provider Go Hanna MD Unavailable Unavailable Reason for Referral * Imaging (Routine) - Closed Specialty Diagnoses / Procedures Referred By Contact Referred To Contact CARDIOVASCULAR DISEASE Diagnoses Non-rheumatic mitral regurgitation Procedures USE TRANSESOPHAGEAL ECHO Logan Wadsworth MD [facility] [address] [place] [address] Phone: tel: fax: Referral ID Status Reason Start Date Expiration Date Visits Re quested Visits Authorized [id number] Closed 01/24/2018 2019 1 1 Reason for Visit * Imaging (Routine) - Closed Specialty Diagnoses / Procedures Referred By Contact Referred To Contact CARDIOVASCULAR DISEASE Diagnoses Non-rheumatic mitral regurgitation Procedures USE TRANSESOPHAGEAL ECHO Logan Wadsworth MD [facility] [address] [place] [address] Phone: tel: fax: Referral ID Status Reason Start Date Expiration Date Visits Re quested Visits Authorized [id number] Closed 01/24/2018 2019 1 1 Encounter Details Date Type Department Care Team (Latest Contact Info) Description 10/03/2018 8:18 AM CDT - 10/03/2018 11:59 PM CDT Hospital Encounter [facility] Non Invasive Cardiology - [place] [id number] [place] [address] Logan Wadsworth MD Discharge Disposition: Home or Self Care (Routine [...] Sign Reading Time Taken Comments Blood Pressure 121/58 10/03/2018 11:30 AM CDT Pulse 67 10/03/2018 11:30 AM CDT Temperature - - Respiratory Rate 18 10/03/2018 11:30 AM CDT Oxygen Saturation 100% 10/03/2018 11:30 AM CDT Inhaled Oxygen Concentration - - Weight 61 kg (134 lb 7.7 oz) 10/03/2018 8:43 AM CDT Height 157.5 cm (5' 2 ) 10/03/2018 8:43 AM CDT Body Mass Index 24.6 10/03/2018 8:43 AM CDT documented in this encounter Discharge Instructions * Attachments The following attachments cannot be sent through Care Everywhere. * Transesophageal Echocardiogram (Uzbek) * Moderate Sedation in Adults Discharge Instructions (Uzbek) documented in this encounter Medications at Time of Discharge amiodarone 200 MG tablet TAKE EVERY THIRD DAY ferrous sulfate, 65 mg elemental, 325 (65 FE) MG tablet Take by mouth 2 (two) times daily. 11/29/2017 metoprolol succinate 50 MG 24 hr tablet Take 0.5 tablets (25 mg total) by mouth daily. 30 tablet 12 01/21/2018 SUMAtriptan (IMITREX) 50 MG tablet Take 1 tablet (50 mg total) by mouth daily as needed for Migraine. 12/09/2017 aspirin-caffeine- butalbital (FIORINAL) 50-325-40 MG Cap capsule 1-2 tablets every 4 (four) hours as needed. 09/20/2008 10/10/2018 busPIRone 5 MG tablet Take 1 tablet by mouth 2 (two) times daily. 09/20/2008 10/10/2018 calcium carb-cholecalcife rol (CALTRATE 600+D) 600-20 MG-MCG tablet Take by mouth daily. 02/06/2024 dabigatran (PRADAXA) 150 MG Cap Take 1 capsule (150 mg total) by mouth 2 (two) times daily. 60 capsule 3 05/25/2018 10/15/2018 DULoxetine (CYMBALTA) 60 MG capsule Take 1 capsule (60 mg total) by mouth daily. 02/06/2024 escitalopram 20 MG tablet Take 2 tablets (40 mg total) by mouth daily. 02/06/2024 gabapentin 100 MG capsule Take by mouth 3 (three) times daily. 11/25/2017 10/15/2018 lansoprazole (PREVACID) 30 MG capsule Take 1 tablet by mouth 2 (two) times daily. 09/20/2008 10/15/2018 lorazepam (ATIVAN) 0.5 MG tablet Take by mouth 2 (two) times daily. 12/09/2017 10/15/2018 Omeprazole 20 MG Tablet Delayed Release Dispersible Take by mouth 2 (two) times daily. 11/02/2017 10/10/2018 potassium chloride 20 MEQ packet Take by mouth daily. 08/31/2017 10/15/2018 venlafaxine 24 hr (EFFEXOR XR) 75 MG 24 hr capsule Take 1 tablet by mouth daily. 09/20/2008 10/10/2018 documented as of this encounter Consult Notes * Logan Wadsworth MD - 10/03/2018 10:16 AM CDT CARDIOLOGY HISTORY & PHYSICAL Name:Emerald Klein :1940 AGE:78-year-old Sex:female ASSESSMENT/PLAN: Patient Active Problem List Diagnosis ??? Atrial fibrillation (CMS/HCC) ??? HTN (hypertension) ??? Mitral regurgitation 1. Mitral regurgitation and significant left ventricular hypertrophy 2. Patient is referred for a 3D WALDO and hemodynamic study to further assess the mitral regurgitation and mechanism in order to guide appropriate further management. 3. I discussed the WALDO procedure with the patient in detail including indications, risks, and benefits. Questions were solicited and answered to the patient's and her daughter's stated satisfaction. Emerald stated she wishes to proceed with the WALDO. In my opinion she is a suitable candidate for moderate conscious sedation. Chief Complaint: Mitral regurgitation and significant left ventricular hypertrophy, presenting for a 3D WALDO to further assess HPI: Emerald is a 78-year-old woman with mitral regurgitation and significant left ventricular hypertrophy. She is referred by Dr. Hanna for a 3D WALDO and hemodynamic study to further assess her mitral regurgitation, and mechanism, in order to guide appropriate further management. Symptoms Past Medical History: Diagnosis Date ??? Anxiety ??? Atrial fibrillation (CMS/HCC) ??? Depression ??? GERD (gastroesophageal reflux disease) ??? HTN (hypertension) ??? Migraine Past Surgical History: Procedure Laterality Date ??? HYSTERECTOMY ??? TOTAL KNEE ARTHROPLASTY (Not in a hospital admission) No Known Allergies Social History Tobacco Use ??? Smoking status: Never Smoker ??? Smokeless tobacco: Never Used Substance Use Topics ??? Alcohol use: Not on file Family History Problem Relation Name Age of Onset ??? Kidney Disease Mother ??? Heart Disease Father Review of Systems: Review of Systems Constitutional: Positive for fatigue. HENT: Negative. Eyes: Negative. Respiratory: Positive for shortness of breath. Cardiovascular: See HPI Gastrointestinal: Negative for blood in stool and melena. Genitourinary: Negative. Musculoskeletal: Negative. Skin: Negative. Neurological: Negative. Endo/Heme/Allergies: Negative. Psychiatric/Behavioral: Negative. Medications: Scheduled Meds: Reviewed, documented Continuous Infusions: ??? sodium chloride 10 mL/hr (10/03/18 0954) PRN Meds: benzocaine 20 %, sodium chloride OBJECTIVE Last Recorded Weight 10/03/18 0843 Weight: 61 kg (134 lb 7.7 oz) Current BMI: Body mass index is 24.6 kg/m??. Vital signs: Vitals: 10/03/18 0951 BP: 110/50 Pulse: 66 Resp: 22 SpO2: 100% Physical Exam Constitutional: She is oriented to person, place, and time. She appears well- developed and well-nourished. HENT: Head: Normocephalic and atraumatic. Eyes: Conjunctivae and EOM are normal. Pupils are equal, round, and reactive to light. Neck: Normal range of motion. Neck supple. No JVD present. Cardiovascular: Normal rate, regular rhythm and intact distal pulses. Murmur heard. Pulmonary/Chest: Effort normal and breath sounds normal. Abdominal: Soft. Bowel sounds are normal. Musculoskeletal: Normal range of motion. She exhibits no edema. Neurological: She is alert and oriented to person, place, and time. She has normal reflexes. Skin: Skin is warm and dry. Psychiatric: She has a normal mood and affect. Her behavior is normal. Judgment and thought contentnormal. Labs and Cultures: Lab Results Component Value Date NA 133 (L) 12/17/2016 K 4.8 12/17/2016 CL 104 12/17/2016 CO2 23.0 12/17/2016 AGAP 6.0 12/17/2016 BUN 24 (H) 12/17/2016 CR 0.77 12/17/2016 GFRNON 73 12/17/2016 GFR 89 12/17/2016 GLU 126 (H) 12/17/2016 CA 7.6 (L) 12/17/2016 No results found for: TROP, BNP Lab Results Component Value Date WBC 5.9 12/21/2016 HGB 7.3 (L) 12/21/2016 PLT 222 12/21/2016 No results found for: CHOL, TRI, HDL, TP, ALB, ALT, HGBA1C, TSH ECG: NSR documented in this encounter OR Notes * Op Note - Logan Wadsworth MD - 10/03/2018 10:21 AM CDT I performed a complete 3D WALDO on Emerald palmer, with moderate conscious sedation for 35 min ([id number]). I personally supervised Thalia Joe R.N. who helped monitor the patient's level ofconsciousness, and physiologic status throughout the entire procedure. The procedure was well tolerated by the patient. No complications. Preliminary Results: See full report in [employer] Relatively small left ventricular cavity with normal contractility, estimated LVEF 60 to 65%. Thereis severe basal septal hypertrophy measuring 1.8 cm, and only mild hypertrophy in all other wall segments. Normal right ventricular size and contractility. There is no evidence of dynamic LVOT obstruction at rest, or with the Valsalva maneuver (transthoracic hemodynamics were performed prior to the WALDO). In the WALDO, there was no mitral ALEX, and no outflow gradient. 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 The regurgitation occurs between A2/P2, most pronounced at the medial aspect. There appears to be some thinning of the medial aspect of A2, and the medial aspect of P2, where quite a bit of regurgitation occurs. I do not see any torn cords, prolapse or flail. The vena contracta area using 3D color Doppler is >1 cm??, which is huge. There are systolic reversals in the pulmonary veins. Other measurements: Mitral valve area (orifice) measures 2.9-3.0 cm??. Mitral gradient 2 mmHg at 65bpm. Septal to leaflet coaptation distance up to 4.6 cm. There is mild annular calcification. Mild tricuspid regurgitation, sclerotic aortic valve with normal function. Severe left atrial enlargement, mild right atrial enlargement Atrial septal aneurysm with PFO. Small left to right shunt with color Doppler. No right to left shunting was demonstrated with saline contrast study however she was not able to cooperate with the Valsalva maneuver. I suspect that we would see right to left shunting if she could have done so. Atherosclerosis of the thoracic aorta Comment: This patient's mitral orifice and annular size is very small, which is a contraindication to the MitraClip procedure. We could do CT modeling to see if she would be a candidate for an Dawn James TMVR, or an AltaValve, or a Tendyne valve. We will discuss in the Structural Heart group meeting. EBL: None Samples removed: None The procedure was well-tolerated by the patient and there were no complications Logan Wadsworth MD, FACC, FRCPC [facility] * Pre-Sedation Assessment - Logan Wadsworth MD - 10/03/2018 10:20 AM CDT Sedation Pre-Evaluation Reviewed the following in the patient's chart: Patient summary ECG Medications Labs Images/Studies Patient has no history sedation complication Past sedation history was obtained from patient. Written consent was given by the patient for today's procedure. Discussed the following risks for today's procedure: allergic reaction, dysrhythmia, inadequate sedation, nausea, prolonged hypoxia resulting in organ damage, prolonged sedation necessitating reversal, respiratory compromise necessitating ventilatory assistance and intubation and vomiting. Pre-Sedation Assessment The last time the patient had anything to eat or drink was 2400. Patient has an ASA score of: 3. The plan is to use moderate (conscious sedation) sedation for today's procedure. Physical Exam: Airway Status: Mallampati: II TM distance: >3 FB Neck ROM: normal Cardiovascular: Rhythm: regular Rate: normal Murmur: (III) Friction rub is absent Systolic click is absent Carotid bruit is not present JVD is absent Peripheral edema is absent Weak pulses are absent Pulmonary: normal Breath sounds clear to auscultation documented in this encounter Plan of Treatment Not on file documented as of this encounter Procedures Procedure Name Priority Date/Time Associated Diagnosis Comments USE TRANSESOPHAGEAL ECHO Routine 10/03/2018 11:04 AM CDT Non-rheumatic mitral regurgitation documented in this encounter Results * USE TRANSESOPHAGEAL ECHO (10/03/2018 11:04 AM CDT) Anatomical Region Laterality Modality Cardiac Echocardiogram, Cardiac Electrophysiology, Cardiac Electrophysiology 10/03/2018 9:50 AM CDT Narrative 10/03/2018 5:54 PM CDT ?Transesophageal Echocardiography Report Pat.Name: ??EMERALD KLEIN ?Pat.ID: ?[id number] ? St.Date: ?? 10/03/2018 ? Refer.: ??[id number], LOGAN WADSWORTH Exam Time: 9:50:00 AM ? Study Type:TRANSESOPHAGEAL ECHO (WALDO) Height: ?157cm ? Weight: ?61kg ? BSA: ? 1.61 m2 ?Age: ??1940,78Y ? Sex: ? FEMALE ?BP: ?110/50 ? HR: ?60 bpm ?Sonogrphr: Katharina Sky RDCS ? Pat. Stat.:Outpatient ?Room: ?CVD ? CPT: ?? 26006 38157 79598 ? Reason for Study:MR ? Procedures:2D, 3 [...] Height ?157 cm ? [place] 18550 cm2 Patient Weight ??22426 g ? LV QLab HM LVEF ?68 % ? Left Ventricula ?? 172 g ?? SV ?64 ml ?CI ?2.66 l/min/m2 Left Ventricula ?95 ml ? Left Ventricle ? 60 % ?? LV Base to [place] ?? 8.5 cm ? Left Ventricle ? 30 % ?? LV Base to [place] ?? 6.4 cm ? Left Ventricle ? 54 % ?? Left Ventricula ?30 ml ? Heart rate ?66 bpm Signed 10/03/2018 05:54 PM Logan Wadsworth M.D. Procedure Note Logan Wadsworth MD - 10/03/2018 Transesophageal Echocardiography Report Pat.Name: EMERALD KLEIN Pat.ID: [id number] .Date: 10/03/2018 Refer.: [id number] VINCENT Exam Time: 9:50:00 AM Study Type:TRANSESOPHAGEAL ECHO (WALDO) Height: 157cm Weight: 61kg BSA: 1.61 m2 Age: 11 1940,78Y Sex: FEMALE BP: 110/50 HR: 60 bpm Sonogrphr: Katharina Sky RDCS Pat. Stat.:Outpatient Room: CVD CPT: 79417 [id number] Reason for Study:MR Procedures:2D, 3 Dimensional imaging [...] Patient Height 157 [place] 03885 cm2 Patient Weight 26102 g LV QLab HM LVEF 68 % Left Ventricula 172 g SV 64 ml CI 2.66 l/min/m2 Left Ventricula 95 ml Left Ventricle 60 % LV Base to [place] 8.5 cm Left Ventricle 30 % LV Base to [place] 6.4 cm Left Ventricle 54 % Left Ventricula 30 ml Heart rate 66 bpm Signed 10/03/2018 05:54 PM Logan Wadsworth M.D. Logan Wadsworth MD ECHO Final Result documented in this encounter Visit Diagnoses Diagnosis Non-rheumatic mitral regurgitation Mitral valve disorders documented in this encounter Administered Medications Inactive Administered Medications - up to 3 most recent administrations Medication Order MAR Action Action Date Dose Rate Site benzocaine 20 % (HURRICAINE) mouth solution Code/trauma/sedation medication, Starting on Wed10/03/18 at 1011, Until Wed10/03/18 at 1014 Given 10/03/2018 10:14 AM CDT 2 sprays fentaNYL (SUBLIMAZE) injection Code/trauma/sedation medication, Starting on Wed10/03/18 at 1016, Until Wed10/03/18 at 1019 Given 10/03/2018 10:19 AM CDT 25 mcg Given 10/03/2018 10:16 AM CDT 25 mcg midazolam (VERSED) injection Code/trauma/sedation medication, Starting on Wed10/03/18 at 1016, Until Wed10/03/18 at 1045 Given 10/03/2018 10:45 AM CDT 1 mg Given 10/03/2018 10:37 AM CDT 1 mg Given 10/03/2018 10:29 AM CDT 1 mg sodium chloride 0.9 % flush Intravenous, Code/trauma/sedation medication, Starting on Wed10/03/18 at 1049, Until Wed10/03/18 at 1049 Given 10/03/2018 10:49 AM CDT 8 mLs sodium chloride 0.9% infusion Intravenous, Code/trauma/sedation continuous medication, Starting on Wed10/03/18 at 0954, Until Wed10/03/18 at 0954 Rate/Dose Change 10/03/2018 10:34 AM CDT 999 mLs New Bag 10/03/2018 9:54 AM CDT 10 mL/hr 10 mL/hr documented in this encounter Care Teams Excellence Specialist Relationship Specialty Start Date End Date Jarret Kwong MD [address] [place] [phone] PCP - General FAMILY PRACTICE 12/27/17 Go Hanna MD [address] [place] [phone] INTERVENTIONAL CARDIOLOGY 12/27/17 04/23/19 documented as of this encounter
--- OUTSIDE RECORDS SUMMARY | 2024-03-20 22:47 | XMS_ITS | Encounter Summary ---
Author Organization [facility] Address [address] [place] [address]. [place], [place] [address] [place] [address] Care Team Providers Care Heating And Air Conditioning Mechanic Name Role Phone Unavailable Primary Care Provider Unavailabl e Encounter Details Date Type Department Care Team (Latest Contact Info) Description 12/20/[address] [facility] Medical [facility] Social History Tobacco Use Types [...]
--- OUTSIDE RECORDS SUMMARY | 2024-03-20 22:47 | XMS_ITS | Encounter Summary ---
Author Organization [facility] Address [address] [place] [address]. [place] [address] [place] [address] Care Team Providers Care Sustainment Logistics Analyst Name Role Phone Jarret Kwong MD Primary Care Provider Go Hanna MD Unavailable Unavailable Reason for Visit * Reason Onset Date Comments Medication Request 01/20/2018 Encounter Details Date Type Department Care Team (Late st Contact Info) Description 01/20/2018 Telephone [facility] [address] [place] [address] Go Hanna MD Medication Request Social History Tobacco Use Types Packs/Day Years Used Date Smoking Tobacco: Never Smokeless Tobacco: Never Comments Unknown Sex and Gender Information Value Date Recorded Sex Assigned at Not on file Legal Sex Female 12:12 AM CDT Gender Identity Not on file Sexual Orientation Not on file documented as of this encounter Progress Notes * Sylvia Ann RN - 01/20/2018 9:17 AM CDT sent * Kelli Montero - 01/20/2018 8:57 AM CDT Patient needs refill for Pradaxa sent to [facility] pharmacy in [place]. documented in this encounter Plan of Treatment Not on file documented as of this encounter Visit Diagnoses Not on filedocumented in this encounter Care Teams Sustainment Logistics Analyst Relationship Specialty Start Date End Date Jarret Kwong MD [address] [place] [phone] PCP - General FAMILY PRACTICE 12/27/17 Go Hanna MD [address] [place] [phone] INTERVENTIONAL CARDIOLOGY 12/27/17 04/23/19 documented as of this encounter
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
--- OUTSIDE RECORDS SUMMARY | 2024-03-20 22:47 | XMS_ITS | Encounter Summary ---
Author Organization [facility] Address [address] [place] [address]. [place], [place] [address] [place] [address] Care Team Providers Care Manufacturing Engineering Manager Name Role Phone Unavailable Primary Care Provider Unavailabl e Encounter Details Date Type Department Care Team (Latest Contact Info) Description 12/17/2016 Abstract [facility] Social History Tobacco [...]
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
--- OUTSIDE RECORDS SUMMARY | 2024-03-20 22:47 | XMS_ITS | Encounter Summary ---
Author Organization [facility] Address [address] [place] [address]. [place] [address] [place] [address] Care Team Providers Care Glove Tagger Name Role Phone Unavailable Primary Care Provider Unavailabl e Encounter Details Date Type Department Care Team (Late st Contact Info) Description 12/17/2016 Orders [place] [address] , Generic Conversion, Social History [...] POCT GLUCOSE - HOOVER DOCKED DEVICE Routine 12/17/2016 12:36 PM CDT documented in this encounter Results * (ABNORMAL) POCT glucose (12/17/2016 12:36 PM CDT) GLUCOSE POC 129(H) 70 - 109 12/17/2016 11:38 AM CDT [facility] ORDERS INTERFACE WHOLE BLOOD SPECIMEN / Unknown 12/17/2016 12:36 PM CDT 12/17/2016 11:37 AM CDT us Generic Conversion Md D[facility]GLASS POCT ORDERABLES - DEVIC E Final Result [facility] ORDERS INTERFACE US documented in this encounter Visit Diagnoses Not on filedocumented in this encounter
--- OUTSIDE RECORDS SUMMARY | 2024-03-20 22:47 | XMS_ITS | Encounter Summary ---
Author Organization [facility] [place] Address [facility] [place] [address] [place] [address] Care Team Providers Care Biomedical Engineering Supervisor Name Role Phone Unavailable Primary Care Provider Unavailabl e Encounter Details Date Type Department Care Team (Latest Contact Info) Description 12/17/2016 Abstract [facility] Terry Thomas MD Social History Tobacco Use Types Packs/Day [...] Procedure Name Priority Date/Time Associated Diagnosis Comments SURG XR KNEE LT 1-2V Routine 12/17/2016 9:46 AM CDT documented in this encounter Results * SURG XR KNEE LT 1-2V (12/17/2016 9:46 AM CDT) Anatomical Region Laterality Modality Knee IMAGES ONLY 12/17/2016 9:46 AM CDT 12/17/2016 9:46 AM CDT Narrative 12/17/2016 10:07 AM CDT [facility] ?? [place], [place] ?? Department of Radiology ? EMERALD KLEIN MD: TERRY THOMAS MD ?? Acct: [id number] ?? : 1940 Pt Type: ADM IN ?? Sex: F Ord Site: MAIN ? Study Date Accession # Procedure Code Procedure ?? 12/17/16 [id number] XR Knee 1 to 2 Views Lt ? Signed ? Examination: Left knee 2 views ? Exam time: December 17, 2016 0858 hours ? Clinical history: Patient notes pain and bruising after falling knee replacement in July. ? Comparison: July 31, 2016 ? Technique: AP and lateral views of the left knee were obtained. ? Findings: ?? Knee arthroplasty hardware appears well seated and well aligned. ? No evidence of fracture, dislocation or gross bone destruction. Some subtle fullness and ?? increased density in the Hoffa's fat pad region could be due to the reported injury. ? The extra-articular air noted in the previous radiograph has resolved. ? IMPRESSION: ? 1. Arthroplasty hardware is well seated and well aligned. ?? 2. No acute bone findings. ? The attending radiologist has reviewed the image(s) and agrees with the content of this report. ? Electronically Signed By: CHUCK POMPA MD 12/17/16 1003 ? Dictated On: 12/17/16 0946 ?? Interpreted By: RAQUEL CORRAL MD, RES ?? Transcribed On: 12/17/16 0948 - INFCE ? CC: ? TERRY THOMAS MD Procedure Note Zohra Grace MD - 01/26/2018 [place], [place] Department of Radiology EMERALD KLEIN Ordering MD: TERRY THOMAS MD Acct: [id number] : 1940 Pt Type: ADM IN Sex: F Ord Site: MAIN Study Date Accession # Procedure Code Procedure 12/17/1620[address]-7966 [id number] XR Knee 1 to 2 Views Lt Signed Examination: Left knee 2 views Exam time: December 17, 2016 0858 hours Clinical history: Patient notes pain and bruising after falling kneereplacement in July. Comparison: July 31, 2016 Technique: AP and lateral views of the left knee were obtained. Findings: Knee arthroplasty hardware appears well seated and well aligned. No evidence of fracture, dislocation or gross bone destruction. Somesubtle fullness and increased density in the Hoffa's fat pad region could be due to thereported injury. The extra-articular air noted in the previous radiograph has resolved. IMPRESSION: 1. Arthroplasty hardware is well seated and well aligned. 2. No acute bone findings. The attending radiologist has reviewed the image(s) and agrees with thecontent of this report. Electronically Signed By: CHUCK POMPA MD 12/17/16 1003 Dictated On: 12/17/16 0946 Interpreted By: RAQUEL CORRAL MD, RES Transcribed On: 12/17/16 0948 - INFCE CC: TERRY THOMAS MD us Terry Thomas MD IMAGES ONLY Final Resu lt documented in this encounter Visit Diagnoses Not on filedocumented in this encounter
--- OUTSIDE RECORDS SUMMARY | 2024-03-20 22:47 | XMS_ITS | Encounter Summary ---
Author Organization [facility] Address [address] [place] [address]. [place], [place] [address] [place] [address] Care Team Providers Care Mental Health Professional Name Role Phone Jarret Kwong MD Primary Care Provider Go Hanna MD Unavailable Unavailable Encounter Details Date Type Department Care Team (Late st Contact Info) Description 01/21/2018 Orders Only [place] [address] [place] [address] Sylvia Ann, RN Social History Tobacco Use [...] on filedocumented in this encounter Care Teams Mental Health Professional Relationship Specialty Start Date End Date Jarret Kwong MD [address] [place] [phone] PCP - General FAMILY PRACTICE 12/27/17 Go Hanna MD [address] [place] [phone] INTERVENTIONAL CARDIOLOGY 12/27/17 04/23/19 documented as of this encounter
--- OUTSIDE RECORDS SUMMARY | 2024-03-20 22:47 | XMS_ITS | Encounter Summary ---
Author Organization [facility] Address [address] [place] [address]. [place] [address] [place] [address] Care Team Providers Care Junior Project Coordinator Name Role Phone Unavailable Primary Care Provider Unavailabl e Encounter Details Date Type Department Care Team (Latest Contact Info) Description 12/18/2016 Abstract [facility] Terry Thomas MD Social [...] Associated Diagnosis Comments XR CHEST PORTABLE Routine 12/18/2016 3:4 2 PM CDT ECG 12-LEAD Routine 12/18/2016 8:22 AM CDT documented in this encounter Results * XR CHEST PORTABLE (12/18/2016 3:42 PM CDT) Anatomical Region Laterality Modality Chest Radiographic Ricarda ging 12/18/2016 3:42 PM CDT 12/18/2016 3:42 PM CDT Narrative 12/18/2016 3:44 PM CDT [facility] ?? [place], [place] ?? Department of Radiology ? EMERALD KLEIN MD: TERRY THOMAS MD ?? Acct: [id number] ?? : 1940 Pt Type: ADM IN ?? Sex: F Ord Site: MAIN ? Study Date Accession # Procedure Code Procedure ?? 12/18/16 [id number] XR Chest 1 View Portable ? Signed ? SINGLE VIEW OF THE CHEST ? Clinical history: Trauma ? Exam time: 1523 hrs ? Comparison: December 16, 2016 ? A single view of the chest demonstrates the cardiac silhouette and mediastinal contours to be ?? at the upper limits of normal in size but remains stable. The pulmonary vessels are normally ?? distributed. Mild interstitial prominence is seen throughout the lungs but is not changed ?? significantly in the interval. Bilateral elevation the right hemidiaphragm is again noted. The ?? visualized bony elements appear intact ? IMPRESSION ? Stable chest ? Electronically Signed By: VERA DENIS MD 12/18/16 154 ? Dictated On: 12/18/161541 ?? Interpreted By: VERA DENIS MD ?? Transcribed On: 12/18/161541 - INFCE ? CC: ? TERRY THOMAS MD Procedure Note Zohra Douglass MD - 01/27/2018 [place], [place] Department of Radiology EMERALD KLEIN MD: TERRY THOMAS MD Acct: [id number] : 1940 Pt Type: ADM IN Sex: F Ord Site: MAIN Study Date Accession # Procedure Code Procedure 12/18/163459-3774 [id number] XR Chest 1 View Portable Signed SINGLE VIEW OF THE CHEST Clinical history: Trauma Exam time: 1523 hrs Comparison: December 16, 2016 A single view of the chest demonstrates the cardiac silhouette andmediastinal contours to be at the upper limits of normal in size but remains stable. The pulmonaryvessels are normally distributed. Mild interstitial prominence is seen throughout the lungsbut is not changed significantly in the interval. Bilateral elevation the righthemidiaphragm is again noted. The visualized bony elements appear intact IMPRESSION Stable chest Electronically Signed By: VERA DENIS MD 12/18/16 1543 Dictated On: 12/18/16 1542 Interpreted By: VERA DENIS MD Transcribed On: 12/18/16 1542 - INFCE CC: TERRY THOMAS MD us Terry Thomas MD GENERAL IMAGING Final Resu lt * ECG 12 lead (12/18/2016 8:22 AM CDT) 12/18/2016 8:22 AM CDT Narrative [facility] - 12/18/2016 10:34 PM CDT ? [facility] ? [address] [place], [place] ??[address] ? Test Date: ?2016-12-18 Pat Name: ? EMERALD KLEIN ?Department: ?? 1 ? Room: ? TSI Gender: ? F ?Camp Counselor: ?? Carlos Leija EMT-P : ?1940 ? Requested By: LAKSHMI HILLMAN Order Number: [id number] ? Reading : ?? Jean Carlos Patel ? Measurements Intervals ?[place] ? Rate: ? 99 ? P: ?86 DE: ? 212 ?QRS: ?-56 QRSD: ? 85 ? T: ?57 QT: ? 363 ? QTc: ?467 ? Interpretive Statements SINUS RHYTHM WITH FIRST DEGREE AV BLOCK LEFT ANTERIOR FASCICULAR BLOCK NONSPECIFIC T-WAVE ABNORMALITY Procedure Note Zohra Douglass MD - 11/28/2018 [facility] [address] [place] [address] Test Date: 2016-12-18 Pat Name: EMERALD KLEIN Department: 1 Room: [facility] Gender: F Camp Counselor: Carlos Leija EMT-P : 1940 Requested By: LAKSHMI HILLMAN Order Number: [id number] Reading MD: Jean Carlos Patel Measurements Intervals [place] Rate: 99 P: 86 DE: 212 QRS: -56 QRSD: 85 T: 57 QT: 363 QTc: 467 Interpretive Statements SINUS RHYTHM WITH FIRST DEGREE AV BLOCK LEFT ANTERIOR FASCICULAR BLOCK NONSPECIFIC T-WAVE ABNORMALITY us Generic Conversion Md DOUGLASS ECG ORDERABLES Final R esult Performing Organization Address City/State/[facility] Co de Phone Number [facility] documented in this encounter Visit Diagnoses Not on filedocumented in this encounter
--- OUTSIDE RECORDS SUMMARY | 2024-03-20 22:47 | XMS_ITS | Encounter Summary ---
Author Organization [facility] Address [address] [place] [address]. [place], [place] [address] [place] [address] Care Team Providers Care Associate Professor Of Forestry Name Role Phone Jarret Kwong MD Primary Care Provider [phone] Go Hanna MD Unavailable Unavailable Encounter Details Date Type Department Care Team (Latest Contact Info) Description 02/08/2018 Scan [facility] , Zohra Chicas MD Social History Tobacco Use Types Packs/Day [...] on filedocumented in this encounter Care Teams Associate Professor Of Forestry Relationship Specialty Start Date End Date Jarret Kwong MD [address] [place] [phone] PCP - General FAMILY PRACTICE 12/27/17 Go Hanna MD [address] [place] [phone] INTERVENTIONAL CARDIOLOGY 12/27/17 04/23/19 documented as of this encounter
--- OUTSIDE RECORDS SUMMARY | 2024-03-20 22:47 | XMS_ITS | Encounter Summary ---
Author Organization [facility] Address [address] [place] [address]. [place] [address] [place] [address] Care Team Providers Care Inlayer Silver Name Role Phone Jarret Kwong MD Primary Care Provider Go Hanna MD Unavailable Unavailable Reason for Visit * Reason Onset Date Comments Postprocedure Call 10/07/2018 WALDO results: please see attached note Encounter Details Date Type Department Care Team (Late st Contact Info) Description 10/07/[address] [facility] [address] [place] [address] Logan Wadsworth MD Postprocedure Call (WALDO results: please see attached note) Social History Tobacco Use Types Packs/Day Years Used Date Smoking Tobacco: Never Smokeless Tobacco: Never Comments Unknown Sex and Gender Information Value Date Recorded Sex Assigned at Not on file Legal Sex Female 12:12 AM CDT Gender Identity Not on file Sexual Orientation Not on file documented as of this encounter Progress Notes * Logan Wadsworth MD - 10/07/2018 3:30 PM CDT [facility] revealed the following: -Relatively small left ventricular cavity with normal contractility, estimated LVEF 60 to 65%. There is severe basal septal hypertrophy measuring 1.8 cm, and only mild hypertrophy in all other wall segments. -Normal right ventricular size and contractility. -No evidence of dynamic LVOT obstruction at rest, [...] a bit of regurgitation occurs. I do notsee any torn cords, prolapse or flail. -Vena contracta area using 3D color Doppler is >1 cm??, which is huge. There are systolic reversals in the pulmonary veins. -Other measurements: Mitral valve area (orifice) measures 2.9-3.0 cm??. Mitral gradient 2 mmHg at 65 bpm. Septal to leaflet coaptation distance up to 4.6 cm. Mild annular calcification. -Mild tricuspid regurgitation, -Atrial septal aneurysm with PFO. Small left to right shunt with color Doppler. No right to left shunting was demonstrated with saline contrast study however she was not able to cooperate with the Valsalva maneuver. I suspect that we would see right to left shunting if she could have done so. Comments: This patient's mitral orifice area is way too small for a MitraClip procedure. We could do CT modeling to see if she would be a candidate for an Dawn James TMVR, or an AltaValve, or a Tendyne valve. We can discuss in the Structural Heart group meeting. Sincerely, Mario documented in this encounter Plan of Treatment Not on file documented as of this encounter Visit Diagnoses Not on filedocumented in this encounter Care Teams Inlayer Silver Relationship Specialty Start Date End Date Jarret Kwong MD [address] [place] [phone] PCP - General FAMILY PRACTICE 12/27/17 Go Hanna MD [address] [place] [phone] INTERVENTIONAL CARDIOLOGY 12/27/17 04/23/19 documented as of this encounter
--- OUTSIDE RECORDS SUMMARY | 2024-03-20 22:47 | XMS_ITS | Encounter Summary ---
Author Organization [facility] Address [address] [place] [address]. [place] [address] [place] [address] Care Team Providers Care Row Boss Hoeing Name Role Phone Jarret Kwong MD Primary Care Provider Go Hanna MD Unavailable Unavailable Reason for Visit * Reason Onset Date Comments Abnormal Echocardiogram 01/13/2018 Encounter Details Date Type Department Care Team (Late st Contact Info) Description 01/13/2018 Telephone [employer] [facility] [address] [place] [phone] Go Hanna MD Abnormal Echocardiogram Social History Tobacco Use Types Packs/Day Years Used Date Smoking Tobacco: Never Smokeless Tobacco: Never Comments Unknown Sex and Gender Information Value Date Recorded Sex Assigned at Not on file Legal Sex Female 12:12 AM CDT Gender Identity Not on file Sexual Orientation Not on file documented as of this encounter Progress Notes * Sylvia Ann RN - 01/13/2018 12:58 PM CDT Spoke with pt on phone and informed that echo is scheduled for 01/20 @ 1230 @ . Pt verbalizes understanding and has no further questions. documented in this encounter Plan of Treatment Not on file documented as of this encounter Visit Diagnoses Not on filedocumented in this encounter Care Teams Row Boss Hoeing Relationship Specialty Start Date End Date Jarret Kwong MD [address] [place] [phone] PCP - General FAMILY PRACTICE 12/27/17 Go Hanna MD [address] [place] [phone] INTERVENTIONAL CARDIOLOGY 12/27/17 04/23/19 documented as of this encounter
--- OUTSIDE RECORDS SUMMARY | 2024-03-20 22:47 | XMS_ITS | Encounter Summary ---
Author Organization [facility] Address [address] [place] [address]. [place] [address] [place] [address] Care Team Providers Care Industrial Eng Name Role Phone Jarret Kwong MD Primary Care Provider [phone] Go Hanna MD Unavailable Unavailable Reason for Visit * Reason Onset Date Comments Problem 09/01/2018 Encounter Details Date Type Department Care Team (Late st Contact Info) Description 09/01/2018 Telephone [facility] [address] [place] [address] Go Hanna MD Problem Social History Tobacco Use Types Packs/Day Years Used Date Smoking Tobacco: Never Smokeless Tobacco: Never Comments Unknown Sex and Gender Information Value Date Recorded Sex Assigned at Not on file Legal Sex Female 12:12 AM CDT Gender Identity Not on file Sexual Orientation Not on file documented as of this encounter Progress Notes * Marguerite Huntley - 09/14/2018 11:40 AM CDT Patient notified that she does not need seen 09/28 per . He will update H&P on arrival. * Marguerite Huntley - 09/01/2018 3:05 PM CDT WALDO confirmed with [facility] for 10/03 8:30am arrival [facility]. She is aware she needs H&P and will see her at [facility] 09/28, time pending currently and I will call her once books open. Letter sent. * Richard Garcia RN - 09/01/2018 9:28 AM CDT Message to Marguerite Huntley to schedule this WALDO. Thank you * Roxana Gayle RN - 09/01/2018 9:12 AM CDT Please call patient back MEIR upon return. Patient states that she would like to get WALDO scheduled as soon as possible. Patient states that she is 2 hours away and has only one daughter that is able to bring her to apt and she is off for summer break so would like to get done quickly. Please call her back at [phone]. * Richard Garcia RN - 09/01/2018 9:02 AM CDT Pt called, would like to get her WALDO scheduled for as soon as possible. Advised Dr. Wadsworth office is out until 09/05. Pt would like to speak to [facility] office about perhaps another provider doing WALDO. Please call her MEIR [phone] documented in this encounter Plan of Treatment Not on file documented as of this encounter Visit Diagnoses Not on filedocumented in this encounter Care Teams Industrial Eng Relationship Specialty Start Date End Date Jarret Kwong MD [address] [place] [phone] PCP - General FAMILY PRACTICE 12/27/17 Go Hanna MD [address] [place] [phone] INTERVENTIONAL CARDIOLOGY 12/27/17 04/23/19 documented as of this encounter
--- OUTSIDE RECORDS SUMMARY | 2024-03-20 22:47 | XMS_ITS | Encounter Summary ---
Author Organization [facility] Address [address] [place] [address]. [place] [address] [place] [address] Care Team Providers Care Ict Project Manager Name Role Phone Unavailable Primary Care Provider Unavailabl e Encounter Details Date Type Department Care Team (Late st Contact Info) Description 12/18/2016 Orders Only [place] [address] , Generic Conversion, Social History [...] Associated Diagnosis Comments HEMOGLOBIN AND HEMATOCRIT TIMED 12/18/2016 11:50 AM CDT documented in this encounter Results * (ABNORMAL) HEMOGLOBIN AND HEMATOCRIT (12/18/2016 11:50 AM CDT) HGB 8.6(L) 12.0 - 16.0 G/DL 12/18/2016 11:10 AM CDT [facility] HCT 25.7(L) 36.0 - 47.0 % 12/18/2016 11:10 AM CDT [facility] PLASMA SPECIMEN / Unknown 12/18/2016 11:50 AM CDT 12/18/2016 11:01 AM CDT us Generic Conversion Md [facility] Final R esult [facility] [address] [place] [address], [id number] documented in this encounter Visit Diagnoses Not on filedocumented in this encounter
--- OUTSIDE RECORDS SUMMARY | 2024-03-20 22:47 | XMS_ITS | Encounter Summary ---
Author Organization [facility] Address [address] [place] [address]. [place] [address] [place] [address] Care Team Providers Care Judge Name Role Phone Jarret Kwong MD Primary Care Provider Go Hanna MD Unavailable Unavailable Reason for Visit * Reason Comments Treadmill (SCAN) Encounter Details Date Type Department Care Team (Late st Contact Info) Description 01/27/2018 Scan [facility] [address] [place] [phone] Scanned, Documents Treadmill (SCAN) Social History Tobacco Use Types [...] on filedocumented in this encounter Care Teams Judge Relationship Specialty Start Date End Date Jarret Kwong MD [address] [place] [phone] PCP - General FAMILY PRACTICE 12/27/17 Go Hanna MD [address] [place] [phone] INTERVENTIONAL CARDIOLOGY 12/27/17 04/23/19 documented as of this encounter
--- OUTSIDE RECORDS SUMMARY | 2024-03-20 22:47 | XMS_ITS | Encounter Summary ---
Author Organization [facility] Address [address] [place] [address]. [place] [address] [place] [address] Care Team Providers Care Trim Mechanic Name Role Phone Jarret Kwong MD Primary Care Provider [phone] Go Hanna MD Unavailable Unavailable Reason for Visit * Reason Onset Date Comments Schedule Procedure 01/24/[address] Wadsworth Encounter Details Date Type Department Care Team (Late st Contact Info) Description 01/24/2018 Telephone [email or web address] [address] [place] [address] Logan Wadsworth MD Schedule Procedure (WALDO with Dr. Wadsworth) Social History Tobacco Use Types Packs/Day Years Used Date Smoking Tobacco: Never Smokeless Tobacco: Never Comments Unknown Sex and Gender Information Value Date Recorded Sex Assigned at Not on file Legal Sex Female 12:12 AM CDT Gender Identity Not on file Sexual Orientation Not on file documented as of this encounter Progress Notes * Lillianorly Benson LPN - 01/24/2018 4:04 PM CDT Called and s/w Pt, WALDO appointment scheduled with Dr. Wadsworth for 03/09/18 at 1300. Went over instructions/ restrictions for WALDO with Patient. She verbalized understanding and has no further questions/concerns. Appointment letter/patient instruction sheet/ map to [facility] mailed to pts home address. 1130 - Arrival time [facility] 5th floor 1300 - WALDO with Dr. Wadsworth Dear Emerald Reeves: ?? Your outpatient Transesophageal echocardiogram (WALDO) with Dr. Wadsworth is scheduled for Wednesday at 1:00 pm the [facility] at [place], [place]. Please check in at 11:30 am at the Registration Desk on the 5th floor of the [facility].We have enclosed a map and information for your use. ?? To prepare for your procedure, you should have nothing to eat or drink for six (6) hours prior to your procedure. Take your regular morning medications with a small amount of water. Please bring a list of your medications and doses with you. ?? *If you are diabetic please take only half of your insulin the night before, and no??insulin or diabetic medication the morning of your procedure ?? Since you will receive intravenous sedation, please arrange in advance for someone to accompany youthe day of the procedure and stay with you the remainder of the day, as you may be slightly dizzy or forgetful. For your health and safety, you will not be permitted to drive yourself home. Please pack an overnight bag in case you need to spend the night. documented in this encounter Plan of Treatment Not on file documented as of this encounter Visit Diagnoses Not on filedocumented in this encounter Care Teams Trim Mechanic Relationship Specialty Start Date End Date Jarret Kwong MD [address] [place] [phone] PCP - General FAMILY PRACTICE 12/27/17 Go Hanna MD [address] [place] [phone] INTERVENTIONAL CARDIOLOGY 12/27/17 04/23/19 documented as of this encounter
--- OUTSIDE RECORDS SUMMARY | 2024-03-20 22:47 | XMS_ITS | Encounter Summary ---
Author Organization [facility] Address [address] [place] [address]. [place] [address] [place] [address] Care Team Providers Care Hot Braider Name Role Phone Unavailable Primary Care Provider Unavailabl e Encounter Details Date Type Department Care Team (Late st Contact Info) Description 12/17/2016 [place] [address] , Generic Conversion, Social History [...] GLUCOSE - HOOVER DOCKED DEVICE Routine 12/17/2016 6:34 AM CDT documented in this encounter Results * (ABNORMAL) POCT glucose (12/17/2016 6:34 AM CDT) GLUCOSE POC 139(H) 70 - 109 12/17/2016 5:39 AM CDT [facility] ORDERS INTERFACE Comment:RN Notified WHOLE BLOOD SPECIMEN / Unknown 12/17/2016 6:34 AM CDT 12/17/2016 5:39 AM CDT us Generic Conversion Md [facility] POCT ORDERABLES - DEVIC E Final Result [facility] ORDERS INTERFACE US documented in this encounter Visit Diagnoses Not on filedocumented in this encounter
--- OUTSIDE RECORDS SUMMARY | 2024-03-20 22:47 | XMS_ITS | Encounter Summary ---
Author Organization [facility] Address [address] [place] [address]. [place] [address] [place] [address] Care Team Providers Care Char Puller Name Role Phone Unavailable Primary Care Provider Unavailabl e Encounter Details Date Type Department Care Team (Late st Contact Info) Description 12/19/2016 Orders Only [place] [address] , Generic Conversion, Social History [...] Associated Diagnosis Comments HEMOGLOBIN AND HEMATOCRIT TIMED 12/19/2016 3:19 PM CDT documented in this encounter Results * (ABNORMAL) HEMOGLOBIN AND HEMATOCRIT (12/19/2016 3:19 PM CDT) HGB 7.3(L) 12.0 - 16.0 G/DL 12/19/2016 3:10 PM CDT [facility] HCT 22.1(L) 36.0 - 47.0 % 12/19/2016 3:10 PM CDT [facility] PLASMA SPECIMEN / Unknown 12/19/2016 3:19 PM CDT 12/19/2016 2:21 PM CDT us Generic Conversion Md [facility] Final R esult [facility] [address] [place] [address], [id number] documented in this encounter Visit Diagnoses Not on filedocumented in this encounter
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
--- OUTSIDE RECORDS SUMMARY | 2024-03-20 22:47 | XMS_ITS | Encounter Summary ---
Author Organization [facility] Address [address] [place] [address]. [place] [address] [place] [address] Care Team Providers Care Regional Project Manager Name Role Phone Jarret Kwong MD Primary Care Provider [phone] Go Hanna MD Unavailable Unavailable Reason for Visit * Reason Onset Date Comments Information 03/07/2018 Patient requesti ng to cancel 03/09/18 WALDO Encounter Details Date Type Department Care Team (Late st Contact Info) Description 03/07/2018 Telephone [facility] [address] [place] [address] Logan Wadsworth MD Information (Patient requesting to cancel 03/09/18 WALDO) Social History Tobacco Use Types Packs/Day Years Used Date Smoking Tobacco: Never Smokeless Tobacco: Never Comments Unknown Sex and Gender Information Value Date Recorded Sex Assigned at Not on file Legal Sex Female 12:12 AM CDT Gender Identity Not on file Sexual Orientation Not on file documented as of this encounter Progress Notes * Sylvia Ann, RN - 03/07/2018 3:51 PM CST Spoke with pt on phone, states had a cortisone shot in her shoulder and doesn't think she can lay for the WALDO Denies any dizziness, SOB or swelling of feet or ankles. Pt states will call back when she feels better or develops any symptoms. Pt verbalizes understanding and has no further questions. Called and spoke with Lorenza in Dr Wadsworth's office to inform of cancellation and she states she will notify [facility] EGE SCOUTING COORDINATOR EGE SCOUTING COORDINATOR * Lorenza Siegel - 03/07/2018 11:16 AM CST Ayah from the office of patient's PCP, Dr. Jarret Kwong, phoned, stating that patient had just completed an office visit with Dr. Kwong. Patient informed Dr. Kwong that she just does not want to go through with her scheduled WALDO with Dr. Wadsworth on 03/09/18, and that patient wants this procedure cancelled. [Unable to immediately transfer caller to Dr. Hanna's office,] I told Ayah that I would send her message to Dr. Hanna's nurse, since Dr. Hanna is primary electrotyper helper, to address. Ayah requested that Dr. Hanna's staff contact patient directly in this regard. EGE SCOUTING COORDINATOR documented in this encounter Plan of Treatment Not on file documented as of this encounter Visit Diagnoses Not on filedocumented in this encounter Care Teams Regional Project Manager Relationship Specialty Start Date End Date Jarret Kwong MD [address] [place] [phone] PCP - General FAMILY PRACTICE 12/27/17 Go Hanna MD [address] [place] [phone] INTERVENTIONAL CARDIOLOGY 12/27/17 04/23/19 documented as of this encounter
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
--- OUTSIDE RECORDS SUMMARY | 2024-03-20 22:47 | XMS_ITS | Encounter Summary ---
Author Organization [facility] Address [address] [place] [address]. [place] [address] [place] [address] Care Team Providers Care Looping Inspector Name Role Phone Jarret Kwong MD Primary Care Provider Go Hanna MD Unavailable Unavailable Encounter Details Date Type Department Care Team (Late st Contact Info) Description 10/28/2017 Abstract [facility] [address] [place] [address] Jarret Kwong MD [address] [place] [phone] Social History Tobacco Use Types Packs/Day Years Used Date Smoking Tobacco: Never Comments Unknown Sex and Gender Information Value Date Recorded Sex Assigned at Not on file Legal Sex Female 12:12 AM CDT Gender Identity Not on file Sexual Orientation Not on file documented as of this encounter Plan of Treatment Not on file documented as of this encounter Visit Diagnoses Diagnosis Mammographic calcification found on diagnostic imaging of breast Other (abnormal) findings on radiological examination of breast documented in this encounter Care Teams Looping Inspector Relationship Specialty Start Date End Date Jarret Kwong MD [address] [place] [phone] PCP - General FAMILY PRACTICE 12/27/17 Go Hanna MD [address] [place] [phone] INTERVENTIONAL CARDIOLOGY 12/27/17 04/23/19 documented as of this encounter
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
--- OUTSIDE RECORDS SUMMARY | 2024-03-20 22:47 | XMS_ITS | Encounter Summary ---
Author Organization [facility] Address [address] [place] [address]. [place] [address] [place] [address] Care Team Providers Care Payroll Administrative Assistant Name Role Phone Unavailable Primary Care Provider Unavailabl e Encounter Details Date Type Department Care Team (Latest Contact Info) Description 12/16/2016 Abstract [facility] Maury Cross MD [address] [place] [phone] Social History Tobacco Use Types Packs/Day [...] Procedure Name Priority Date/Time Associated Diagnosis Comments ETHANOL Routine 12/16/2016 3:44 PM CDT documented in this encounter Results * (ABNORMAL) ETHANOL (12/16/2016 3:44 PM CDT) ALCOHOL S/P/B ZERO 0 G/DL [facility] UP TO EPIC CONVERSION WBC 19.6(H) 4.0 - 10.8 x10'3/uL [facility] TO EPIC CONVERSION RBC 3.94(L) 4.10 - 5.40 x10'6/uL [facility] TO EPIC CONVERSION HGB 12.4 12.0 - 16.0 G/DL [facility] TO EPIC CONVERSION HCT 35.7(L) 36.0 - 47.0 % [facility] TO EPIC CONVERSION MCV 90.6 78.0 - 100.0 FL [facility] TO EPIC CONVERSION MCH 31.5(H) 27.0 - 31.0 PG [facility] TO EPIC CONVERSION MCHC 34.7 33.0 - 36.0 G/DL [facility] TO EPIC CONVERSION RDW 12.7 11.5 - 14.5 % [facility] TO EPIC CONVERSION PLT 290 150 - 350 x10'3/uL [facility] TO EPIC CONVERSION MPV 10.8(H) 7.4 - 10.4 FL [facility] TO EPIC CONVERSION ABS. NEUTROPHILS TOTAL 15.58(H) 1.60 - 8.30 x10'3/uL [facility] TO EPIC CONVERSION ABS. LYMPHOCYTES 2.29 0.80 - 4.70 x10'3/uL [facility] TO EPIC CONVERSION ABS. MONOCYTES 1.12 0.00 - 1.50 x10'3/uL [facility] TO EPIC CONVERSION ABS. EOSINOPHILS 0.08 0.00 - 0.40 x10'3/uL [facility] TO EPIC CONVERSION ABS. BASOPHILS 0.08 0.00 - 0.20 x10'3/uL [facility] TO EPIC CONVERSION ABS. IMMATURE GRANULOCYTES 0.41(H) 0.00 - 0.03 x10'3/uL [facility] TO EPIC CONVERSION ABS. NUCLEATED RBC'S 0.00 0.0 x10'3/uL [facility] TO EPIC CONVERSION SODIUM S/P/B 139 135 - 147 MMOL/L [facility] TO EPIC CONVERSION POTASSIUM S/P/B 3.3(L) 3.5 - 5.0 MMOL/L [facility] TO EPIC CONVERSION CHLORIDE S/P/B 109(H) 98 - 107 MMOL/L [facility] TO EPIC CONVERSION CO2 22.0 22 - 29 MMOL/L [facility] TO EPIC CONVERSION GLUCOSE 111(H) 70 - 109 MG/DL [facility] TO EPIC CONVERSION BUN 18 10 - 20 MG/DL [facility] TO EPIC CONVERSION CREATININE S/P/B 0.68 0.60 - 1.10 MG/DL [facility] TO EPIC CONVERSION CALCIUM S/P/B 8.7(L) 8.8 - 10.0 MG/DL [facility] TO EPIC CONVERSION EGFR NON-AFR. AMER. 84 >60 ML/MIN/1. 73 M2 [facility] TO EPIC CONVERSION EGFR AFR. AMER. 102 >60 ML/MIN/1. 73 M2 [facility] TO EPIC CONVERSION ANION GAP 8.0 MMOL/L [facility] T O EPIC CONVERSION OSMOLALITY (CALC) 280 MOSM/KG [facility] TO EPIC CONVERSION 12/16/2016 3:44 PM CDT 12/16/2016 3:44 PM CDT Narrative [facility] TO EPIC CONVERSION - 12/16/2016 4:17 PM CDT Result Communication: No patient communication needed at this time us Maury Cross MD LABORATORY Final Result [facility] TO EPIC CONVERSION documented in this encounter Visit Diagnoses Not on filedocumented in this encounter
--- OUTSIDE RECORDS SUMMARY | 2024-03-20 22:47 | XMS_ITS | Encounter Summary ---
Author Organization [facility] Address [address] [place] [address]. [place] [address] [place] [address] Care Team Providers Care Back Padder Name Role Phone Unavailable Primary Care Provider Unavailabl e Encounter Details Date Type Department Care Team (Late st Contact Info) Description 12/17/2016 Orders Only [facility] [place] [address] , Generic Conversion, Social History [...] Diagnosis Comments HEMOGLOBIN AND HEMATOCRIT TIMED 12/17/2016 6:35 AM CDT documented in this encounter Results * (ABNORMAL) HEMOGLOBIN AND HEMATOCRIT (12/17/2016 6:35 AM CDT) HGB 9.3(L) 12.0 - 16.0 G/DL 12/17/2016 5:48 AM CDT [facility] HCT 28.0(L) 36.0 - 47.0 % 12/17/2016 5:48 AM CDT [facility] PLASMA SPECIMEN / Unknown 12/17/2016 6:35 AM CDT 12/17/2016 5:38 AM CDT us Generic Conversion Md [facility] Final R esult [facility] [address] [place] [address], [id number] documented in this encounter Visit Diagnoses Not on filedocumented in this encounter
--- OUTSIDE RECORDS SUMMARY | 2024-03-20 22:47 | XMS_ITS | Encounter Summary ---
Author Organization [facility] Address [address] [place] [address]. [place] [address] [place] [address] Care Team Providers Care Mellowing Machine Operator Name Role Phone Jarret Kwong MD Primary Care Provider Go Hanna MD Unavailable Unavailable Reason for Visit * Reason Onset Date Comments Results 01/21/2018 Encounter Details Date Type Department Care Team (Late st Contact Info) Description 01/21/2018 Telephone [facility] [address] [place] [address] Go Hanna MD Results Social History Tobacco Use Types Packs/Day Years Used Date Smoking Tobacco: Never Smokeless Tobacco: Never Comments Unknown Sex and Gender Information Value Date Recorded Sex Assigned at Not on file Legal Sex Female 12:12 AM CDT Gender Identity Not on file Sexual Orientation Not on file documented as of this encounter Progress Notes * Sylvia Ann RN - 01/21/2018 3:33 PM CDT Spoke with pt on phone, informed of echo results and per Dr Hanna's recommendation to have WALDO with Dr Wadsworth and to start metoprolol succinate 25mg daily. Verified pharmacy. Pt verbalizes understandingand has no further questions. documented in this encounter Plan of Treatment Not on file documented as of this encounter Visit Diagnoses Not on filedocumented in this encounter Care Teams Mellowing Machine Operator Relationship Specialty Start Date End Date Jarret Kwong MD [address] [place] [phone] PCP - General FAMILY PRACTICE 12/27/17 Go Hanna MD [address] [place] [phone] INTERVENTIONAL CARDIOLOGY 12/27/17 04/23/19 documented as of this encounter
--- OUTSIDE RECORDS SUMMARY | 2024-03-20 22:47 | XMS_ITS | Encounter Summary ---
Author Organization [facility] Address [address] [place] [address]. [place] [address] [place] [address] Care Team Providers Care Ring Attacher Name Role Phone Jarret Kwong MD Primary Care Provider Go Hanna MD Unavailable Unavailable Encounter Details Date Type Department Care Team (Late st Contact Info) Description 07/16/2017 Abstract [facility] [address] [place] [address] [place] [address] Jarret Kwong MD [address] [place] [phone] Social History Tobacco Use Types Packs/Day [...] osteoporosis documented in this encounter Care Teams Ring Attacher Relationship Specialty Start Date End Date Jarret Kwong MD [address] [place] [phone] PCP - General FAMILY PRACTICE 12/27/17 Go Hanna MD [address] [place] [phone] INTERVENTIONAL CARDIOLOGY 12/27/17 04/23/19 documented as of this encounter
--- OUTSIDE RECORDS SUMMARY | 2024-03-20 22:47 | XMS_ITS | Encounter Summary ---
Author Organization [facility] Address [address] [place] [address]. [place] [address] [place] [address] Care Team Providers Care Ice Cream Freezer Assistant Name Role Phone Jarret Kwong MD Primary Care Provider Go Hanna MD Unavailable Unavailable Encounter Details Date Type Department Care Team (Late st Contact Info) Description 01/20/2018 Abstract [facility] [address] [place] [address] [place] [address] Go Hanna MD Social History Tobacco Use [...] osteoporosis documented in this encounter Care Teams Ice Cream Freezer Assistant Relationship Specialty Start Date End Date Jarret Kwong MD [address] [place] [phone] PCP - General FAMILY PRACTICE 12/27/17 Go Hanna MD [address] [place] [phone] INTERVENTIONAL CARDIOLOGY 12/27/17 04/23/19 documented as of this encounter
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
--- OUTSIDE RECORDS SUMMARY | 2024-03-20 22:47 | XMS_ITS | Encounter Summary ---
Author Organization [facility] Address [address] [place] [address]. [place] [address] [place] [address] Care Team Providers Care Vp Information Technology Name Role Phone Jarret Kwong MD Primary Care Provider Go Hanna MD Unavailable Unavailable Encounter Details Date Type Department Care Team (Late st Contact Info) Description 03/18/[address] [facility] [address] [facility] [place] [address] Jarret Kwong MD [address] [place] [phone] Social History Tobacco Use Types Packs/Day Years Used Date Smoking Tobacco: Never Comments Unknown Sex and Gender Information Value Date Recorded Sex Assigned at Not on file Legal Sex Female 12:12 AM CDT Gender Identity Not on file Sexual Orientation Not on file documented as of this encounter Plan of Treatment Not on file documented as of this encounter Visit Diagnoses Diagnosis Inconclusive mammogram documented in this encounter Care Teams Vp Information Technology Relationship Specialty Start Date End Date Jarret Kwong MD [address] [place] [phone] PCP - General FAMILY PRACTICE 12/27/17 Go Hanna MD [address] [place] [phone] INTERVENTIONAL CARDIOLOGY 12/27/17 04/23/19 documented as of this encounter
--- OUTSIDE RECORDS SUMMARY | 2024-03-20 22:47 | XMS_ITS | Encounter Summary ---
Author Organization [facility] Address [address] [place] [address]. [place] [address] [place] [address] Care Team Providers Care Machine I Engraver Name Role Phone Jarret Kwong MD Primary Care Provider Go Hanna MD Unavailable Unavailable Encounter Details Date Type Department Care Team (Late st Contact Info) Description 12/16/2016 Abstract [facility] [address] [facility] [id number] Naseem Pate MD [address] [place] [address] Social History Tobacco Use Types Packs/Day Years Used Date Smoking Tobacco: Never Comments Unknown Sex and Gender Information Value Date Recorded Sex Assigned at Not on file Legal Sex Female 12:12 AM CDT Gender Identity Not on file Sexual Orientation Not on file documented as of this encounter Plan of Treatment Pending Results Name Type Priority Associated Diagnoses Date /Time ECG 12 lead EKG-NonRad Routine 12/16/2016 4: 45 PM CDT documented as of this encounter Procedures Procedure Name Priority Date/Time Associated Diagnosis Comments ECG 12-LEAD Routine 12/16/2016 4:45 PM CDT Procedure Note - 12/16/2016 4:45 PM CDTThis note is in progress. [facility]-ED Test Date: 2016-12-16 Pat Name: EMERALD KLEIN Department: 70 Room: Gender: F Television Director: NOA SHAFFER : 1940 Requested By: Order Number: Reading MD: Measurements Intervals [place] Rate: 85 P: 9 AR: 214 QRS: -68 QRSD: 76 T: 37 QT: 376 QTc: 449 Interpretive Statements SINUS RHYTHM WITH FIRST DEGREE AV BLOCK WITH OCCASIONAL SUPRAVENTRICULAR PREMATURE COMPLEXES MARKED LEFT AXIS DEVIATION [QRS AXIS < -30] PATTERN CONSISTENT WITH PULMONARY DISEASE POSSIBLE RIGHT VENTRICULAR CONDUCTION DELAY [RSR (QR) IN V1/V2] NONSPECIFIC T-WAVE ABNORMALITY documented in this encounter Visit Diagnoses Diagnosis Other symptoms and signs involving the musculoskeletal system documented in this encounter Care Teams Machine I Engraver Relationship Specialty Start Date End Date Jarret Kwong MD [address] [place] [phone] PCP - General FAMILY PRACTICE 12/27/17 Go Hanna MD [address] [place] [phone] INTERVENTIONAL CARDIOLOGY 12/27/17 04/23/19 documented as of this encounter
--- OUTSIDE RECORDS SUMMARY | 2024-03-20 22:47 | XMS_ITS | Encounter Summary ---
Author Organization [facility] Address [address] [place] [address]. [place], [place] [id number] [place] [address] Care Team Providers Care Machine Ceramic Coater Name Role Phone Jarret Kwong MD Primary Care Provider Go Hanna MD Unavailable Unavailable Encounter Details Date Type Department Care Team (Late st Contact Info) Description 07/12/2018 Abstract [facility] [address] [place] [address] Alfredito Aguilar MD [address] [place] [address] Social History Tobacco Use Types Packs/Day Years [...] as of this encounter Visit Diagnoses Diagnosis Pain in right shoulder Pain in joint, shoulder region documented in this encounter Care Teams Machine Ceramic Coater Relationship Specialty Start Date End Date Jarret Kwong MD [address] [place] [phone] PCP - General FAMILY PRACTICE 12/27/17 Go Hanna MD [address] [place] [phone] INTERVENTIONAL CARDIOLOGY 12/27/17 04/23/19 documented as of this encounter
--- OUTSIDE RECORDS SUMMARY | 2024-03-20 22:47 | XMS_ITS | Encounter Summary ---
Author Organization [facility] Address [address] [place] [address]. [place] [address] [place] [address] Care Team Providers Care Education Officer Name Role Phone Unavailable Primary Care Provider Unavailabl e Encounter Details Date Type Department Care Team (Late st Contact Info) Description 12/17/2016 Orders Only [place] [address] , Generic Conversion, Social History [...] Diagnosis Comments HEMOGLOBIN AND HEMATOCRIT TIMED 12/17/2016 6:55 PM CDT documented in this encounter Results * (ABNORMAL) HEMOGLOBIN AND HEMATOCRIT (12/17/2016 6:55 PM CDT) HGB 9.7(L) 12.0 - 16.0 G/DL 12/17/2016 7:42 PM CDT [facility] HCT 29.7(L) 36.0 - 47.0 % 12/17/2016 7:42 PM CDT [facility] PLASMA SPECIMEN / Unknown 12/17/2016 6:55 PM CDT 12/17/2016 7:42 PM CDT us Generic Conversion Md [facility] Final R esult [facility] [address] [place] [address], [id number] documented in this encounter Visit Diagnoses Not on filedocumented in this encounter
--- OUTSIDE RECORDS SUMMARY | 2024-03-20 22:47 | XMS_ITS | Encounter Summary ---
Author Organization [facility] Address [address] [place] [address]. [place] [address] [place] [address] Care Team Providers Care Clean Up Worker Name Role Phone Jarret Kwong MD Primary Care Provider Go Hanna MD Unavailable Unavailable Reason for Visit * Reason Onset Date Comments Schedule Procedure 08/31/2018 Encounter Details Date Type Department Care Team (Late st Contact Info) Description 08/31/2018 Telephone [facility] [address] [place] [phone] Logan Wadsworth MD Schedule Procedure Social History Tobacco Use Types Packs/Day Years Used Date Smoking Tobacco: Never Smokeless Tobacco: Never Comments Unknown Sex and Gender Information Value Date Recorded Sex Assigned at Not on file Legal Sex Female 12:12 AM CDT Gender Identity Not on file Sexual Orientation Not on file documented as of this encounter Progress Notes * Kelli Montero - 08/31/2018 10:57 AM CDT Patient is ready to schedule her WALDO with Dr. Wadsworth, call her back at [phone] documented in this encounter Plan of Treatment Not on file documented as of this encounter Visit Diagnoses Not on filedocumented in this encounter Care Teams Clean Up Worker Relationship Specialty Start Date End Date Jarret Kwong MD [address] [place] [phone] PCP - General FAMILY PRACTICE 12/27/17 Go Hanna MD [address] [place] [phone] INTERVENTIONAL CARDIOLOGY 12/27/17 04/23/19 documented as of this encounter
--- OUTSIDE RECORDS SUMMARY | 2024-03-20 22:47 | XMS_ITS | Encounter Summary ---
Author Organization [facility] Address [address] [place] [address]. [place] [address] [place] [address] Care Team Providers Care Gang Plank Workman Name Role Phone Jarret Kwong MD Primary Care Provider [phone] Go Hanna MD Unavailable Unavailable Reason for Referral * (Routine) - Closed Specialty Diagnoses / Procedures Referred By Sam villalba Referred To Contact Procedures Critical Care Attila Davis MD [facility] [address] [address] Phone: tel: fax: Referral ID Status Reason Start Date Expiration Date Visits Re quested Visits Authorized [id number] Closed 10/10/2018 11/11/2019 1 1 Reason for Visit * Reason Comments Weakness Encounter Details Date Type Department Care Team (Late st Contact Info) Description 10/10/2018 4:33 PM CDT - 10/10/2018 10:14 PM CDT Emergency [facility] [address] [place] [address] [place] [address] Attila Davis MD [facility] [address] [address] Weakness Discharge Disposition: Other Facility with Planned Inpatient [...] Sign Reading Time Taken Comments Blood Pressure 118/49 10/10/2018 9:39 PM CDT Pulse 77 10/10/2018 9:39 PM CDT Temperature 37 ??C (98.6 ??F) 10/10/2018 9:39 PM CDT Respiratory Rate 19 10/10/2018 9:39 PM CDT Oxygen Saturation 95% 10/10/2018 9:39 PM CDT Inhaled Oxygen Concentration - - Weight 59 kg (130 lb) 10/10/2018 4:41 PM CDT Height 160 cm (5' 3 ) 10/10/2018 4:41 PM CDT Body Mass Index 23.03 10/10/2018 4:41 PM CDT documented in this encounter Medications at Time [...] mouth 3 (three) times daily. 11/25/2017 10/15/2018 gabapentin 100 MG capsule Take 1 capsule (100 mg total) by mouth 3 (three) times daily. 20 capsule 10/15/2018 10/15/2018 lansoprazole (PREVACID) 30 MG capsule Take 1 tablet by mouth 2 (two) times daily. 09/20/2008 10/15/2018 lorazepam (ATIVAN) 0.5 MG tablet Take by mouth 2 (two) times daily. 12/09/2017 10/15/2018 meloxicam 15 MG tablet Take 15 mg by mouth daily. 10/15/2018 omeprazole 20 MG capsule Take 20 mg by mouth 2 (two) times a day. 10/15/2018 pantoprazole EC (PROTONIX) 40 MG tablet Take 1 tablet (40 mg total) by mouth 2 (two) times a day for 30 days. 30 tablet 2 10/15/2018 11/14/2018 polyethylene glycol packet Take 1 packet (17 g total) by mouth daily for 30 days. Dissolve powder in 240 mL water 30 packet 10/16/2018 11/02/2018 potassium chloride 20 MEQ packet Take by mouth daily. 08/31/2017 10/15/2018 sucralfate 1 GM/10ML suspension Take 10 mLs (1 g total) by mouth every 6 (six) hours for 30 days. 1200 mL 10/15/2018 11/14/2018 documented as of this encounter ED Notes * Colleen Rajput RN - 10/10/2018 10:12 PM CDT Patient alert, oriented, vitals stable with RBC infusing apon discharge, Report given to Jaya in the [facility]. * Nidia Sood RN - 10/10/2018 9:27 PM CDT Called [facility] for transport * Mine Castaneda RN - 10/10/2018 6:26 PM CDT Lab called to report that pt has antibodies and will be a few hours before blood will be ready to transfuse. Daughter signs consent for transfusion of blood. Pt gives verbal consent. Pt remains alertand conversive; states 'just feel weak' * Mine Castaneda RN - 10/10/2018 6:15 PM CDT vp training x 2 for 2nd iv site without success * Mine Castaneda RN - 10/10/2018 5:34 PM CDT Pt continues to rest nearly supine on stretcher, family at bedside. Continues to deny any symptoms other than feeling weak at rest. * Attila Davis MD - 10/10/2018 4:49 PM CDTAssociated Order(s): EKG Reading; Critical Care I, katie Moraes, am personally taking down the notes in the presence of Attila Davis MD.?Take no action on this note until reviewed and authenticated??by the physician. Chief Complaint Chief Complaint Patient presents with ??? Weakness History of Present Illness The patient is a 78-year-old female with PMHx of A FIB, mitral valve disorder, gastric ulcer, anxiety, and depression who presents to the ED via EMS for evaluation of generalized weakness. The patient states over the past x2 days she has experienced generalized weakness of a worsening severity. Thepatient reports the additional symptom of lightheadedness with positional changes. EMS notes significant pallor upon their arrival to the patient's home. The patient explains she takes an iron supplement daily and endorses her stool is dark in color at her baseline. The patient reveals her stools have been normal in appearance over the past several days. The patient notes she currently takes Pradaxa. The patient denies fever or chills. The patient denies nausea, emesis, or diarrhea. The patientis otherwise in their state of health and no positive complaints were stated upon review of systems. History provided by: Patient, medical records and EMS personnel bobbin presser used: No Medical History ALLERGIES: No Known Allergies MEDICATIONS: Prior to Admission medications Medication Sig Start Date End Date Taking? Authorizing Provider calcium carb-cholecalciferol (CALTRATE 600+D) 600-800 MG-UNIT tablet Take by mouth daily. Yes Doc Abstract dabigatran (PRADAXA) 150 MG Cap Take 1 capsule (150 mg total) by mouth 2 (two) times daily. 05/25/18Yes Go Hanna MD duloxetine (CYMBALTA) 60 MG capsule Take by mouth daily. Yes Doc Abstract escitalopram 20 MG tablet Take 40 mg by mouth daily. Yes Doc Abstract ferrous sulfate, 65 mg elemental, 325 (65 FE) MG tablet Take by mouth 2 (two) times daily. 11/29/17 Yes Doc Abstract gabapentin 100 MG capsule Take by mouth 3 (three) times daily. 11/25/17 Yes Doc Abstract lorazepam (ATIVAN) 0.5 MG tablet Take by mouth 2 (two) times daily. 12/09/17 Yes Doc Abstract meloxicam 15 MG tablet Take 15 mg by mouth daily. Yes Doc Abstract metoprolol succinate 50 MG 24 hr tablet Take 0.5 tablets (25 mg total) by mouth daily. 01/21/18 Reji Hanna MD omeprazole 20 MG capsule Take 20 mg by mouth 2 (two) times a day. Yes Doc Abstract potassium chloride 20 MEQ packet Take by mouth daily. 08/31/17 Yes Doc Abstract amiodarone 200 MG tablet TAKE EVERY THIRD DAY Doc Abstract lansoprazole (PREVACID) 30 MG capsule Take 1 tablet by mouth 2 (two) times daily. 09/20/08 Doc Abstract SUMAtriptan (IMITREX) 50 MG tablet 12/09/17 Doc Abstract PAST MEDICAL HISTORY: Past Medical History: Diagnosis Date ??? Anxiety ??? Atrial fibrillation (CMS/HCC) ??? Coronary artery disease ??? Depression ??? GERD (gastroesophageal reflux disease) ??? Migraine ??? Mitral valve disorder PAST SURGICAL HISTORY: Past Surgical History: Procedure Laterality Date ??? APPENDECTOMY ??? HYSTERECTOMY ??? TOTAL KNEE ARTHROPLASTY FAMILY HISTORY: Family History Problem Relation Name Age of Onset ??? Kidney Disease Mother ??? Heart Disease Father SOCIAL HISTORY: Social History Tobacco Use ??? Smoking status: Never Smoker ??? Smokeless tobacco: Never Used Substance Use Topics ??? Alcohol use: No Frequency: Never ??? Drug use: No Review of Systems Review of Systems Constitutional: Positive for generalized weakness. HENT: Negative. Eyes: Negative. Respiratory: Negative. Cardiovascular: Negative. Gastrointestinal: Negative. Endocrine: Negative. Genitourinary: Negative. Musculoskeletal: Negative. Skin: Positive for pallor. Allergic/Immunologic: Negative. Neurological: Positive for light-headedness. Hematological: Negative. Psychiatric/Behavioral: Negative. Physical Exam Filed Vitals: 10/10/18 1641 10/10/18 1815 10/10/18 1830 BP: 107/52 125/45 122/48 Pulse: 76 77 76 Resp: 18 24 24 Temp: 98 ??F (36.7 ??C) TempSrc: Temporal SpO2: 95% 96% 96% Weight: 59 kg (130 lb) Height: 5' 3 (1.6 m) Physical Exam Nursing note and vitals reviewed. Generalized Appearance: No apparent distress. Well developed. Well nourished. Skin: Warm and dry. No rash. Head: Normocephalic. Eyes: Conjunctiva clear bilaterally. Chest and Respiratory: Airway patent. Breath sounds equal. Lungs clear to auscultation. No stridor,wheezes, rales, or rhonchi. No accessory muscle use. No respiratory distress. Cardiovascular: Regular rate and rhythm. No murmur, rubs, or gallops. Patient becomes orthostatic when asked to sit up from lying position. Abdominal: Non-tender. Soft. Non-distended. No rebound, guarding, or rigidity. Musculoskeletal: Exhibits movement of all extremities. Neurologic: Alert and oriented x3. No gross motor deficits. Mental Status: Normal affect. Diagnostic Studies / Procedures ELECTROCARDIOGRAMS: Results for orders placed or performed during the hospital encounter of 10/10/18 ECG 12 lead Narrative [place] [id number] [facility] [place] [address] Test Date: 2018-10-10 Pat Name: JUANA KLEIN Department: Room: EXAM 808 Gender: Female Backside Grinder: MACARIO : 1940 Requested By: ATTILA DAVIS Order Number: [id number] Reading MD: Measurements Intervals [place] Rate: 76 P: AL: 0 QRS: -43 QRSD: 93 T: 79 QT: 393 QTc: 444 Interpretive Statements ATRIAL FIBRILLATION LEFT AXIS DEVIATION NONSPECIFIC T-WAVE ABNORMALITY LABORATORY STUDIES: Results for orders placed or performed during the hospital encounter of 10/10/18 CBC W/DIFF AUTOMATED Result Value Ref Range WBC 6.3 4.5 - 10.8 x10'3/uL RBC 1.51 (L) 4.10 - 5.40 x10'6/uL HGB 4.3 (LL) 12.0 - 16.0 G/DL HCT 14.0 (LL) 36.0 - 47.0 % MCV 92.7 78.0 - 100.0 FL MCH 28.5 27.0 - 31.0 PG MCHC 30.7 (L) 33.0 - 36.0 G/DL RDW 13.9 11.5 - 14.5 % PLT 245 150 - 350 x10'3/uL MPV 10.2 7.4 - 10.4 FL Differential Comment NORMAL REFERENCE RANGE NOT ESTABLISHED FOR THE PROPORTIONAL LEUKOCYTE DIFFERENTIAL. SEG NEUTROPHILS 70.0 % LYMPHOCYTES 17.1 % MONOCYTES 10.1 % EOSINOPHILS 1.9 % BASOPHILS 0.3 % IMMATURE GRANS 0.6 % NRBC 0.0 % ABS. NEUTROPHILS 4.40 1.60 - 8.30 x10'3/uL ABS. LYMPHOCYTES 1.08 0.80 - 4.70 x10'3/uL ABS. MONOCYTES 0.64 0.00 - 1.50 x10'3/uL ABS. EOSINOPHILS 0.12 0.00 - 0.40 x10'3/uL ABS. BASOPHILS 0.02 0.00 - 0.20 x10'3/uL ABS. IMMATURE GRANULOCYTES 0.04 (H) 0.00 - 0.03 x10'3/uL ABS. NUCLEATED RBC'S 0.00 0.00 x10'3/uL PLT MORPH. NORMAL RBC MORPHOLOGY 3+ PROTIME/INR, VENOUS Result Value Ref Range Protime 13.7 (H) 10.9 - 13.3 SEC INR 1.1 0.9 - 1.1 PARTIAL THROMBOPLASTIN TIME,PTT Result Value Ref Range PTT 51.9 (H) 27.5 - 38.9 SEC COMPREHENSIVE METABOLIC PANEL Result Value Ref Range SODIUM 130 (L) 136 - 145 MMOL/L POTASSIUM 4.1 3.5 - 5.1 MMOL/L CHLORIDE 98 98 - 107 MMOL/L CO2 26.6 21.0 - 32.0 MMOL/L GLUCOSE 98 70 - 140 MG/DL BUN 24 6 - 24 MG/DL CREATININE 0.89 0.55 - 1.02 MG/DL CALCIUM 7.6 (L) 8.4 - 10.5 MG/DL TOTAL BILIRUBIN 0.2 0.2 - 1.0 MG/DL ALK PHOS 34 (L) 55 - 142 U/L AST 8 (L) 15 - 37 U/L ALT 13 (L) 14 - 59 U/L TOTAL PROTEIN 5.0 (L) 6.4 - 8.2 G/DL ALBUMIN 2.6 (L) 3.4 - 5.0 G/DL ANION GAP 5.4 5.0 - 15.0 MMOL/L OSMOLALITY (CALC) 274 MOSM/KG eGFR Non-Afr. Amer. 63 (L) >89 ML/MIN/1.73 M2 eGFR Afr. Amer. 72 (L) >89 ML/MIN/1.73 M2 GFR NOTES THE ESTIMATED GFR IS CALCULATED USING THE 2009 CKD-EPI EQUATION. THE FOLLOWING CATEGORIES FOR GRADING RENAL FUNCTION ARE RECOMMENDED BY THE INTERNATIONAL SOCIETY OF NEPHROLOGY (KDIGO 2012 CLINICAL PRACTICE GUIDELINE). TROPONIN, QUANT Result Value Ref Range TROPONIN I <0.017 0.000 - 0.056 ng/mL. LACTIC ACID Result Value Ref Range LACTIC ACID 0.9 0.4 - 2.0 MMOL/L MAGNESIUM Result Value Ref Range MAGNESIUM 1.9 1.8 - 2.4 MG/DL URINALYSIS Result Value Ref Range COLOR YELLOW TRANSPARENCY CLEAR Specific [place] (U) 1.010 1.000 - 1.025 U PH 6.0 5.0 - 8.0 LEUKOCYTE ESTERASE NEGATIVE NEGATIVE NITRITES NEGATIVE NEGATIVE PROTEIN, URINE NEGATIVE NEGATIVE URINE GLUCOSE NEGATIVE NEGATIVE U KETONES NEGATIVE NEGATIVE UROBILINOGEN 0.2 <1.0 EU/DL Urine Bilirubin NEGATIVE NEGATIVE BLOOD NEGATIVE NEGATIVE WBC/HPF 0-5 0 - 5 /HPF EPI/HPF OCCASIONAL /LPF TYPE AND SCREEN Result Value Ref Range UNITS ORDERED 1 ABO/RH O POSITIVE ANTIBODY SCREEN POSITIVE SAMPLE EXPIRATION: 10/13/2018 ANTIBODY ID PENDING IMAGING STUDIES XR CHEST PORTABLE Final Result by User, [id number] (10/10 1718) Date: 10/10/2018 5:11 PM Exam: XR CHEST [...] Interpreted By: Adryan Atwood, 10/10/2018 5:14 PM EKG Reading Date/Time: 10/10/2018 8:07 PM Performed by: Attila Davis MD Authorized by: Attila Davis MD Interpreted by ED physician Comparison: not compared with previous ECG Rhythm: atrial fibrillation Rate: normal BPM: 76 QRS axis: left Conduction: conduction normal T flattening: I, aVL, V4, V5 and V6 Clinical impression: abnormal ECG Critical Care Performed by: Attila Davis MD Authorized by: Attila Davis MD Critical care provider statement: Critical care time (minutes): 50 Critical care start time: 10/10/2018 4:41 PM Critical care end time: 10/10/2018 8:09 PM Critical care time was exclusive of: Separately billable procedures and treating other patients Critical care was necessary to treat or prevent imminent or life-threatening deterioration of the following conditions: Cardiac failure, circulatory failure and shock Critical care was time spent personally by me on the following activities: Blood draw for specimens, development of treatment plan with patient or surrogate, discussions with consultants, discussionswith primary provider, evaluation of patient's response to treatment, examination of patient, interpretation of cardiac output measurements, obtaining history from patient or surrogate, ordering and performing treatments and interventions, ordering and review of laboratory studies, ordering and review of radiographic studies, pulse oximetry, re-evaluation of patient's condition and review of old charts I assumed direction of critical care for this patient from another provider in my specialty: no ED Course / Medical Decision Making Medications sodium chloride 0.9% infusion (not administered) sodium chloride 0.9% bolus infusion SOLN 1,000 mL (1,000 mLs Intravenous New Bag 10/10/18 6916) Current Discharge Medication List No follow-up provider specified. Clinical Impression Symptomatic anemia (Primary) Atrial fibrillation (CMS/HCC) Mitral regurgitation Disposition: Transfer to Another Facility Nicole Iqbal, 10/10/18, 18:43. Provider Attestation: I provided the services as described by the scribe in the note above. The patient presented with weakness and dizziness. Upon arrival she was noted to be very pale. Initial labs revealed a hemoglobinof 4.3. The patient takes Pradaxa for atrial fibrillation and states that she believes that she hada GI bleed from an ulcer that required transfusion approximately 7 or 8 years ago. She is unsure ofthe exact circumstances. She last took her Pradaxa this morning. She has not noticed any bright redblood per rectum or change in her stools. She denies any pain. She has recently been worked up for mitral regurgitation and possible valve repair by Dr. Hanna and cardiology at [place]. The patient and her daughter understand and agree with the plan for transfer and have no further questions at this time. Attila Davis MD 10/10/182007 Attila Davis MD 10/10/182009 * Mine Castaneda RN - 10/10/2018 4:32 PM CDT Per ems from home with c/o weakness and near syncope when stands up, states gets ringing in ears with standing. Pt very pale, warm and dry. States has had dark stools but takes iron and looks same asusual. States h/o a fib, depression and recently dx with 'leaky valve' by yoel last week. Pt denies pain, nvd or fever. Alert and conversive. Weak posturing documented in this encounter Plan of Treatment Pending Results Name Type Priority Associated Diagnoses Date /Time RBC UNITS Blood Bank STAT 10/10/2018 5:1 8 PM CDT documented as of this encounter Procedures Procedure Name Priority Date/Time Associated Diagnosis Comments URINALYSIS STAT 10/10/2018 6:05 PM CDT URINE BACTERIA CULTURE STAT 9 6:05 PM CDT ECG 12-LEAD STAT 10/10/2018 5:19 PM CDT RBC UNITS STAT 10/10/2018 5:18 PM CDT TYPE & SCREEN STAT 10/10/2018 5:18 PM CDT PARTIAL THROMBOPLASTIN TIME,PTT STAT 10/10/2018 5:18 PM CDT PROTHROMBIN TIME, VENOUS STAT 019 5:18 PM CDT COMPREHENSIVE METABOLIC PANEL STAT 10/10/2018 5:18 PM CDT LACTIC ACID STAT 10/10/2018 5:18 PM CDT CBC W/DIFF AUTOMATED STAT 10/10/2018 5:18 PM CDT TROPONIN, QUANT STAT 10/10/2018 5:18 PM CDT MAGNESIUM STAT 10/10/2018 5:18 PM CDT XR CHEST PORTABLE STAT 10/10/2018 5:1 1 PM CDT CRITICAL CARE Routine 10/10/2018 4:49 PM CDT ELECTROCARDIOGRAM REPORT Routine 019 4:49 PM CDT documented in this encounter Results * CULTURE URINE (10/10/2018 6:05 PM CDT) SPEC DESCRIPTION URINE CLEAN CATCH 10/10/2018 6:05 PM CDT [facility] SPECIAL REQUESTS NO SPECIAL REQUEST 10/10/2018 6:05 PM CDT [facility] CULTURE RESULT NO GROWTH (< OR = 1,000 CFU/ML) 10/11/2018 9:30 PM CDT [facility] URINE SPECIMEN OBTAINED BY CLEAN CATCH PROCEDURE / Unknown 10/10/2018 6:05 PM CDT 10/10/2018 6:17 PM CDT Attila Davis MD MICROBIOLOGY - GENERAL ORDConnie [facility] Final Result [facility] [address] [place] [address], [place] [phone] [id number] [facility] [address] [place] [address], * URINALYSIS (10/10/2018 6:05 PM CDT) COLOR (U) YELLOW 10/10/2018 6:33 PM CDT [facility] TRANSPARENCY CLEAR 10/10/2018 6:33 PM CDT [facility] SPECIFIC GRAVITY (U) 1.010 1.000 - 1.025 10/10/2018 6:33 PM CDT [facility] U PH 6.0 5.0 - 8.0 10/10/2018 6:33 PM CDT [facility] LEUKOCYTES (U) NEGATIVE NEGATIVE 10/10/2018 6:33 PM CDT [facility] NITRITES NEGATIVE NEGATIVE 10/10/2018 6:33 PM CDT [facility] PROTEIN (U) NEGATIVE NEGATIVE 10/10/2018 6:33 PM CDT [facility] URINE GLUCOSE NEGATIVE NEGATIVE 10/10/2018 6:33 PM CDT [facility] KETONES MG/DL (U) NEGATIVE NEGATIVE 10/10/2018 6:33 PM CDT [facility] UROBILINOGEN 0.2 <1.0 EU/DL 10/10/2018 6:33 PM CDT [facility] BILIRUBIN (U) NEGATIVE NEGATIVE 10/10/2018 6:33 PM CDT [facility] BLOOD (U) NEGATIVE NEGATIVE 10/10/2018 6:33 PM CDT [facility] WBC/HPF 0-5 0 - 5 /HPF 10/10/2018 6:33 PM CDT [facility] EPI/HPF OCCASIONAL /LPF 10/10/2018 6:33 PM CDT [facility] URINE SPECIMEN OBTAINED BY CLEAN CATCH PROCEDURE / Unknown 10/10/2018 6:05 PM CDT us Attila Davis MD URINE ORDERABLES Final Resu lt [facility] [address] [place] [address], * ECG 12 lead (10/10/2018 5:19 PM CDT) 10/10/2018 5:19 PM CDT Narrative [facility] - 10/12/2018 2:20 PM CDT ? [facility] ?[address] [place], [place] ??[address] ? Test Date: ?2018-10-10 Pat Name: ? JUANA KLEIN ?Department: ? Room: ? TRMA2 Gender: ? Female ? Backside Grinder: ?? WEBE : ?1940 ? Requested By: ATTILA CAPUTOLEONA Order Number: [id number] ? Reading MD: ?? Luis Cárdenas ? Measurements Intervals ?[place] ? Rate: ? 76 ? P: ? AL: ? 0 ?QRS: ?-43 QRSD: ? 93 ? T: ?79 QT: ? 393 ? QTc: ?444 ? Interpretive Statements SINUS RHYTHM WITH FIRST DEGREE AV BLOCK LEFT ANTERIOR FASCICULAR BLOCK NONSPECIFIC T-WAVE ABNORMALITY Procedure Note Lusi Cárdenas MD - 10/12/[address] [place] [address] Test Date: 2018-10-10 Pat Name: JUANA KLEIN Department: Room: [facility] Gender: Female Backside Grinder: MACARIO : 1940 Requested By: ATTILA DAVIS Order Number: [id number] Reading MD: Luis Cárdenas Measurements Intervals [place] Rate: 76 P: AL: 0 QRS: -43 QRSD: 93 T: 79 QT: 393 QTc: 444 Interpretive Statements SINUS RHYTHM WITH FIRST DEGREE AV BLOCK LEFT ANTERIOR FASCICULAR BLOCK NONSPECIFIC T-WAVE ABNORMALITY us Attila Davis MD ECG ORDERABLES Final Resul t [facility] * TYPE AND SCREEN (10/10/2018 5:18 PM CDT) UNITS ORDERED 1 10/10/2018 6:14 PM CDT [facility] ABO/RH O POSITIVE 10/10/2018 6:14 PM CDT [facility] ANTIBODY SCREEN POSITIVE 6:14 PM CDT [facility] SAMPLE EXPIRATION 10/13/2018 10/10/2018 6:14 PM CDT [facility] ANTIBODY ID ANTI-c 10/11/2018 3:48 PM CDT [facility] ANTIBODY ID ANTI-E 10/11/2018 3:48 PM CDT [facility] COMMENT EMERGENCY RELEASE OF UNIT PRIOR TO ANTIBODY WORKUP PER DR. DAVIS. UNIT TRANSFUSED WAS POSITIVE FOR LITTLE C ANTIGEN. 10/11/2018 6:15 PM CDT [facility] BLOOD UNIT NUMBER [id number] 10/10/2018 8:47 PM CDT [facility] PRODUCT: PC LEUKOPOOR 10/10/2018 8:47 PM CDT [facility] UNIT DIVISION 00 10/10/2018 8:47 PM CDT [facility] BLOOD UNIT STATUS TRANSFUSED,FIN AL 10/13/2018 2:07 AM CDT [facility] TRANSFUSION STATUS OK TO TRANSFUSE 10/10/2018 8:47 PM CDT [facility] CROSSMATCH COMPATIBLE 10/10/2018 8:47 PM CDT [facility] 10/10/2018 5:18 PM CDT us Attila Davis MD BLOOD BANK TEST ORDERABLES Final Result Performing Organization Address [facility] de Phone Number [facility] [address] [place] [address], * LACTIC ACID (10/10/2018 5:18 PM CDT) LACTIC ACID VENOUS 0.9 0.4 - 2.0 MMOL/L 10/10/2018 5:48 PM CDT [facility] 10/10/2018 5:18 PM CDT us Attila Davis MD LABORATORY Final Resul t Performing Organization Address [facility] Co de Phone Number [facility] [address] [place] [address], * MAGNESIUM (10/10/2018 5:18 PM CDT) MAGNESIUM 1.9 1.8 - 2.4 MG/DL 10/10/2018 5:50 PM CDT [facility] 10/10/2018 5:18 PM CDT us Attila Davis MD LABORATORY Final Resul t Performing Organization Address City/[facility]/ZIP Co de Phone Number [facility] [address] [place] [address], * TROPONIN, QUANT (10/10/2018 5:18 PM CDT) [facility] TROPONIN I <0.017 0.000 - 0.056 ng/mL. 10/10/2018 5:50 PM CDT [facility] Comment: ALTHOUGH VALUES OVER 0.056 ARE CONSIDERED ABNORMAL AND REPRESENT MYOCARDIAL DAMAGE,A CUTOFF OF 0.600 HAS BEEN RECOMMENDED REPRESENTING ACUTE MYOCARDIAL INFARCTION. 10/10/2018 5:18 PM CDT us Attila Davis MD LABORATORY Final Resul t [facility] [address] [place] [address], * (ABNORMAL) COMPREHENSIVE METABOLIC PANEL (10/10/2018 5:18 PM CDT) [facility] SODIUM S/P/B 130(L) 136 - 145 MMOL/L 10/10/2018 5:50 PM CDT [facility] POTASSIUM S/P/B 4.1 3.5 - 5.1 MMOL/L 10/10/2018 5:50 PM CDT [facility] CHLORIDE S/P/B 98 98 - 107 MMOL/L 10/10/2018 5:50 PM CDT [facility] CO2 26.6 21.0 - 32.0 MMOL/L 10/10/2018 5:50 PM CDT [facility] GLUCOSE 98 70 - 140 MG/DL 10/10/2018 5:50 PM CDT [facility] BUN 24 6 - 24 MG/DL 10/10/2018 5:50 PM CDT [facility] CREATININE S/P/B 0.89 0.55 - 1.02 MG/DL 10/10/2018 5:50 PM CDT [facility] CALCIUM S/P/B 7.6(L) 8.4 - 10.5 MG/DL 10/10/2018 5:50 PM [facility] [place] [facility] BILIRUBIN TOTAL S/P/B 0.2 0.2 - 1.0 MG/DL 10/10/2018 5:50 PM [facility] [place] [facility] ALKALINE PHOSPHATASE S/P/B 34(L) 55 - 142 U/L 10/10/2018 5:50 PM [facility] [place] [facility] AST 8(L) 15 - 37 U/L 10/10/2018 5:50 PM [facility] [place] [facility] ALT 13(L) 14 - 59 U/L 10/10/2018 5:50 PM [facility] [place] TOTAL PROTEIN S/P/B 5.0(L) 6.4 - 8.2 G/DL 10/10/2018 5:50 PM [facility] ALBUMIN S/P/B 2.6(L) 3.4 - 5.0 G/DL 10/10/2018 5:50 PM [facility] ANION GAP 5.4 5.0 - 15.0 MMOL/L 10/10/2018 5:50 PM [facility] [place] OSMOLALITY (CALC) 274 MOSM/KG 10/10/2018 5:50 PM [facility] [place] [facility] Comment:REFERENCE RANGE NOT ESTABLISHED EGFR NON-AFR. AMER. 63(L) >89 ML/MIN/1 .73 M2 10/10/2018 5:50 PM [facility] [place] [facility] EGFR AFR. AMER. 72(L) >89 ML/MIN/1 .73 M2 10/10/2018 5:50 PM [facility] [place] [facility] GFR NOTES THE ESTIMATED GFR IS CALCULATED USING THE 2009 CKD-EPI EQUATION. THE FOLLOWING CATEGORIES FOR GRADING RENAL FUNCTION ARE RECOMMENDED BY THE INTERNATIONAL SOCIETY OF NEPHROLOGY (KDIGO 2012 CLINICAL PRACTICE GUIDELINE). 10/10/2018 5:50 PM ACCESS [facility] [place] [facility] Comment: G1,NORMAL OR HIGH: >89 ml/min/1.73 m2 G2,MILDLY DECREASED: 60-89 ml/min/1.73 m2 G3A,MILDLY TO MODERATELY DECREASED: 45-59 ml/min/1.73 m2 G3B,MODERATELY TO SEVERELY DECREASED: 30-44 ml/min/1.73 m2 G4,SEVERELY DECREASED: 15-29 ml/min/1.73 m2 G5,KIDNEY FAILURE: <15 ml/min/1.73 m2 10/10/2018 5:18 PM CDT us Attila Davis MD LABORATORY Final Resul t Performing Organization Address [facility] de Phone Number [facility] [address] [place] [address], * (ABNORMAL) PARTIAL THROMBOPLASTIN TIME,PTT (10/10/2018 5:18 PM CDT) PTT 51.9(H) 27.5 - 38.9 SEC 10/10/2018 5:38 PM CDT [facility] Comment:THERAPEUTIC RANGE: 4 9.8-83.0 SEC 10/10/2018 5:18 PM CDT us Attila Davis MD LABORATORY Final Resul t Performing Organization Address [facility] de Phone Number [facility] [address] [place] [address], [place] [phone] * (ABNORMAL) PROTIME/INR, VENOUS (10/10/2018 5:18 PM CDT) PROTIME 13.7(H) 10.9 - 13.3 SEC 10/10/2018 5:38 PM CDT [facility] INR 1.1 0.9 - 1.1 10/10/2018 5:38 PM CDT [facility] 10/10/2018 5:18 PM CDT us Attila Davis MD LABORATORY Final Resul t Performing Organization Address [facility] de Phone Number [facility] [address] [place] [address], [place] [phone] * (ABNORMAL) CBC W/DIFF AUTOMATED (10/10/2018 5:18 PM CDT) WBC 6.3 4.5 - 10.8 x10'3/uL 10/10/2018 5:32 PM CDT [facility] RBC 1.51(L) 4.10 - 5.40 x10'6/uL 10/10/2018 5:32 PM CDT [facility] HGB 4.3(LL) 12.0 - 16.0 G/DL 10/10/2018 5:32 PM CDT [facility] Comment: CRITICAL VALUE CALLED TO LOW AT 1730 READ BACK AND VERIFIED RESULT CHECKED HCT 14.0(LL) 36.0 - 47.0 % 10/10/2018 5:32 PM CDT [facility] Comment: CRITICAL VALUE CALLED TO LOW AT 1730 READ BACK AND VERIFIED RESULT CHECKED MCV 92.7 78.0 - 100.0 FL 10/10/2018 5:32 PM CDT [facility] MCH 28.5 27.0 - 31.0 PG 10/10/2018 5:32 PM CDT [facility] MCHC 30.7(L) 33.0 - 36.0 G/DL 10/10/2018 5:32 PM CDT [facility] RDW 13.9 11.5 - 14.5 % 10/10/2018 5:32 PM CDT [facility] PLT 245 150 - 350 x10'3/uL 10/10/2018 5:32 PM CDT [facility] MPV 10.2 7.4 - 10.4 FL 10/10/2018 5:32 PM CDT [facility] DIFFERENTIAL COMMENT NORMAL REFERENCE RANGE NOT ESTABLISHED FOR THE PROPORTIONAL LEUKOCYTE DIFFERENTIAL. 10/10/2018 5:32 PM CDT [facility] SEG NEUTROPHILS 70.0 % 9 5:48 PM CDT [facility] LYMPHOCYTES 17.1 % 10/10/2018 5:48 PM CDT [facility] MONOCYTES 10.1 % 10/10/2018 5:48 PM CDT [facility] EOSINOPHILS 1.9 % 10/10/2018 5:48 PM CDT [facility] BASOPHILS 0.3 % 10/10/2018 5:48 PM CDT [facility] IMMATURE GRANS % 0.6 % 10/11/19 19 5:48 PM CDT [facility] NRBC 0.0 % 10/10/2018 5:48 PM CDT [facility] ABS. NEUTROPHILS 4.40 1.60 - 8.30 x10'3/uL 10/10/2018 5:48 PM CDT [facility] ABS. LYMPHOCYTES 1.08 0.80 - 4.70 x10'3/uL 10/10/2018 5:48 PM CDT [facility] ABS. MONOCYTES 0.64 0.00 - 1.50 x10'3/uL 10/10/2018 5:48 PM CDT [facility] ABS. EOSINOPHILS 0.12 0.00 - 0.40 x10'3/uL 10/10/2018 5:48 PM CDT [facility] ABS. BASOPHILS 0.02 0.00 - 0.20 x10'3/uL 10/10/2018 5:48 PM CDT [facility] ABS. IMMATURE GRANULOCYTES 0.04(H) 0.00 - 0.03 x10'3/uL 10/10/2018 5:48 PM CDT [facility] ABS. NUCLEATED RBC'S 0.00 0.00 x10'3/uL 10/10/2018 5:48 PM CDT [facility] PLT MORPH. NORMAL 10/10/2018 5:48 PM CDT [facility] RBC MORPHOLOGY 3+ 10/10/2018 5:48 PM CDT [facility] Comment: HYPOCHROMASIA 1+ ANISOCYTOSIS 1+ POIKILOCYTOSIS 10/10/2018 5:18 PM CDT us Attila Davis MD LABORATORY Final Resul t [facility] [address] [place] [phone], * XR CHEST PORTABLE (10/10/2018 5:11 PM CDT) Anatomical Region Laterality Modality Chest Radiographic Ricarda ging 10/10/2018 5:14 PM CDT Impressions 10/10/2018 5:17 PM CDT Impression: 1. Cardiomegaly and vascular congestion. 2. Bronchial wall thickening could indicate bronchitis, reactive airway disease and/or peribronchial cuffing. 3. Mild atelectasis or infiltrates in the infrahilar regions. Interpreted By: Adryan Atwood, 10/10/2018 5:14 PM Narrative 10/10/2018 5:17 PM CDT Date: 10/10/2018 5:11 PM Exam: XR CHEST [...] airway disease. The osseous structures are intact. Procedure Note Adryan Atwood MD - 10/10/2018 Date: 10/10/2018 5:11 PM Exam: XR CHEST PORTABLE Comparison: Chest radiography dated 01/01/2017. Technique: Single view chest. History: Weakness and shortness of breath. Fatigue. Findings: Since the cardiac silhouette is somewhat enlarged. There is vascular congestion. There are no dense consolidations nor pleural effusions. There are mild and vague opacities in the infrahilarlocations possibly atelectasis and/or infiltrates. There is no pneumothorax. Thereis central bronchial wall thickening. This could indicate bronchitis, peribronchial cuffing or possibly reactive airway disease. The osseous structures are intact. Impression: 1. Cardiomegaly and vascular congestion. 2. Bronchial wall thickening could indicate bronchitis, reactive airway disease and/or peribronchial cuffing. 3. Mild atelectasis or infiltrates in the infrahilar regions. Interpreted By: Adryan Atwood, 10/10/2018 5:14 PM us Attila Davis MD GENERAL IMAGING Final Resul t * Critical Care (10/10/2018 4:49 PM CDT) Attila Aguirre MD - 10/10/2018 4:49 PM CDT Attila Davis MD ? 10/10/2018 ??8:10 PM Critical Care Performed by: Attila Davis MD Authorized by: Attila Davis MD Critical care provider statement: ??Critical care time (minutes): ??50 ??Critical care start time: ??10/10/2018 4:41 PM ??Critical care end time: ??10/10/2018 8:09 PM ??Critical care time was exclusive of: ??Separately billable procedures and treating other patients ??Critical care was necessary to treat or prevent imminent or life-threatening deterioration of the following conditions: ??Cardiac failure, circulatory failure and shock ??Critical care was time spent personally by me on the following activities: ??Blood draw for specimens, development of treatment plan with patient or surrogate, discussions with consultants, discussions with primary provider, evaluation of patient's response to treatment, examination of patient, interpretation of cardiac output measurements, obtaining history from patient or surrogate, ordering and performing treatments and interventions, ordering and review of laboratory studies, ordering and review of radiographic studies, pulse oximetry, re-evaluation of patient's condition and review of old charts ??I assumed direction of critical care for this patient from another provider in my specialty: no ?? us Attila Daivs MD PROCEDURE/MINOR SURGICAL OR DERABLES Final Result * EKG Reading (10/10/2018 4:49 PM CDT) Narrative Attila Davis MD - 10/10/2018 4:49 PM CDT Attila Davis MD ? 10/10/2018 ??8:10 PM EKG Reading Date/Time: 10/10/2018 8:07 PM Performed by: Attila Davis MD Authorized by: Attila Davis MD Interpreted by ED physician Comparison: not compared with previous ECG Rhythm: atrial fibrillation Rate: normal BPM: 76 QRS axis: left Conduction: conduction normal T flattening: I, aVL, V4, V5 and V6 Clinical impression: abnormal ECG us Attila Davis MD [facility] SE RVICES Edited Result - Final documented in this encounter Visit Diagnoses Diagnosis Symptomatic anemia- Primary Atrial fibrillation ([facility]) Atrial fibrillation Mitral regurgitation Mitral valve disorders documented in this encounter Administered Medications Inactive Administered Medications - up to 3 most recent administrations Medication Order MAR Action Action Date Dose Rate Site sodium chloride 0.9% bolus infusion SOLN 1,000 mL 1,000 mL, Intravenous, Administer over 15 Minutes, Once, 1 dose, On Wed10/10/18 at 1700 New Bag 10/10/2018 5:33 PM CDT 1,000 mLs 999 mL/hr sodium chloride 0.9% infusion at 10 mL/hr, Intravenous, Continuous, Starting on Wed10/10/18 at 1745, Until Wed10/10/18 at 2256, Infuse at TKO rate documented in this encounter Active and Recently Administered Medications Times are shown in CDT. Scheduled Medication Order 10/08/2018 10/09/2018 10/10/2018 sodium chloride 0.9% bolus infusion SOLN 1,000 mL (COMPLETED) 1,000 mL, Intravenous, Administer over 15 Minutes, Once, 1 dose, On Wed10/10/18 at 1700 1733 (New Bag - Prov ider: Mine Castaneda, RN)2033 (Infusion Stop Time - Provider: Colleen Rajput, NICK) Continuous Medication Order 10/08/2018 10/09/2018 10/10/2018 sodium chloride 0.9% infusion at 10 mL/hr, Intravenous, Continuous, Starting on Wed10/10/18 at 1745, Until Wed10/10/18 at 2256, Infuse at TKO rate 1745 (Due) documented in this encounter Care Teams Gang Plank Workman Relationship Specialty Start Date End Date Jarret Kwong MD [address] [place] [phone] PCP - General FAMILY PRACTICE 12/27/17 Go Hanna MD [address] [place] [phone] INTERVENTIONAL CARDIOLOGY 12/27/17 04/23/19 documented as of this encounter
--- OUTSIDE RECORDS SUMMARY | 2024-03-20 22:47 | XMS_ITS | Encounter Summary ---
Author Organization [facility] Address [address] [place] [address]. [place], [place] [address] [place] [address] Care Team Providers Care Fur Ironer Name Role Phone Unavailable Primary Care Provider Unavailabl e Encounter Details Date Type Department Care Team (Latest Contact Info) Description 06/29/2017 Abstract [facility] Social History Tobacco Use Types [...]
--- OUTSIDE RECORDS SUMMARY | 2024-03-20 22:47 | XMS_ITS | Encounter Summary ---
Author Organization [facility] Address [address] [place] [address]. [id number] Care Team Providers Care Information Assurance Officer Name Role Phone Unavailable Primary Care Provider Unavailabl e Encounter Details Date Type Department Care Team (Late st Contact Info) Description 12/17/2016 Orders Only [place] [address] , Generic Conversion, Social History [...] GLUCOSE - HOOVER DOCKED DEVICE Routine 12/17/2016 12:25 AM CDT documented in this encounter Results * (ABNORMAL) POCT glucose (12/17/2016 12:25 AM CDT) GLUCOSE POC 142(H) 70 - 109 12/16/2016 11:39 PM CDT [facility] ORDERS INTERFACE Comment:RN Notified WHOLE BLOOD SPECIMEN / Unknown 12/17/2016 12:25 AM CDT 12/16/2016 11:39 PM CDT us Generic Conversion Md [facility] POCT ORDERABLES - DEVIC E Final Result [facility] ORDERS INTERFACE US documented in this encounter Visit Diagnoses Not on filedocumented in this encounter
--- OUTSIDE RECORDS SUMMARY | 2024-03-20 22:48 | XMS_ITS | Encounter Summary ---
Author Organization [facility] Address [address] [place] [address]. [place], [place] [address] [place] [address] Care Team Providers Care Clinical Support Manager Name Role Phone Unavailable Primary Care Provider Unavailabl e Encounter Details Date Type Department Care Team (Latest Contact Info) Description 12/16/2016 Abstract [facility] Maury Hillman MD [address] [place] [phone] Social History Tobacco Use Types Packs/Day [...] Name Priority Date/Time Associated Diagnosis Comments CT THOR SPINE WO CON Routine 12/16/2016 4:52 PM CDT documented in this encounter Results * CT THOR SPINE WO CON (12/16/2016 4:52 PM CDT) Anatomical Region Laterality Modality Spine Computed Tomogra phy 12/16/2016 4:52 PM CDT 12/16/2016 4:52 PM CDT Narrative 12/16/2016 5:02 PM CDT [facility] ?? [place], [place] ?? Department of Radiology ? EMERALD KLEIN MD: MAURY HILLMAN MD ?? Acct: [id number] ?? : 1940 Pt Type: REG ER ?? Sex: F Ord Site: MAIN ? Study Date Accession # Procedure Code Procedure ?? 12/16/16 0058-4113; [id number] Lumbar Spine WO ? Signed ? [...] Procedure Note Zohra Grace MD - 01/26/2018 [place], [place] Department of Radiology EMERALD KLEIN MD: MAURY HILLMAN MD Acct: [id number] : 1940 Pt Type: REG ER Sex: F Ord Site: MAIN Study Date Accession # Procedure Code Procedure 12/16/1620[address]-0296; [id number] Lumbar Spine WO Signed CLINICAL [...] a subtle linear fracture involving the inferior [id number] endplate with less than 25% loss of [...]
--- OUTSIDE RECORDS SUMMARY | 2024-03-20 22:48 | XMS_ITS | Encounter Summary ---
Author Organization [facility] Address [address] [place] [address]. [place] [address] [place] [address] Care Team Providers Care Customs Guard Name Role Phone Jarret Kwong MD Primary Care Provider [phone] Go Hanna MD Unavailable Unavailable Encounter Details Date Type Department Care Team (Late st Contact Info) Description 10/30/2016 Abstract [facility] [address] [facility] [place] [address] Jarret Kwong MD [address] [place] [phone] Social History Tobacco Use Types Packs/Day [...] of this encounter Visit Diagnoses Diagnosis Other intervertebral disc displacement, lumbosacral region documented in this encounter Care Teams Customs Guard Relationship Specialty Start Date End Date Jarret Kwong MD [address] [place] [phone] PCP - General FAMILY PRACTICE 12/27/17 Go Hanna MD [address] [place] [phone] INTERVENTIONAL CARDIOLOGY 12/27/17 04/23/19 documented as of this encounter
--- OUTSIDE RECORDS SUMMARY | 2024-03-20 22:48 | XMS_ITS | Encounter Summary ---
Author Organization [facility] Address [address] [place] [address]. [place], [place] [address] [place] [address] Care Team Providers Care Supervisor Cell Room Name Role Phone Unavailable Primary Care Provider Unavailabl e Encounter Details Date Type Department Care Team (Latest Contact Info) Description 12/16/2016 Abstract [facility] Maury Hillman MD [address] [place] [phone] Social History Tobacco Use Types Packs/Day [...] Name Priority Date/Time Associated Diagnosis Comments XR PELVIS 1 OR 2 VIEWS Routine 12/16/2016 4:32 PM CDT documented in this encounter Results * XR PELVIS 1 OR 2 VIEWS (12/16/2016 4:32 PM CDT) Anatomical Region Laterality Modality Pelvis Radiographic Ricarda ging 12/16/2016 4:32 PM CDT 12/16/2016 4:32 PM CDT Narrative 12/16/2016 4:35 PM CDT [facility] ?? [place], [place] ?? Department of Radiology ? EMERALD KLEIN MD: MAURY HILLMAN MD ?? Acct: [id number] ?? : 1940 Pt Type: REG ER ?? Sex: F Ord Site: MAIN ? Study Date Accession # Procedure Code Procedure ?? 12/16/16 PLVAP XR Pelvis AP ? Signed ? Exam description: Pelvis- 1 view ? Exam time: 1552 hours. ? Comparison: No previous available. ? Exam History: Pain ? Findings: No fractures or other acute bony abnormalities identified. Hip joint spaces ?? well-maintained with no significant arthritic changes. No destructive bony abnormalities. ?? Markers noted from presumed previous ventral hernia repair. ? IMPRESSION: ? No acute bony abnormality. ? Electronically Signed By: JAMES CONTE MD 12/16/161632 ? Dictated On: 12/16/161631 ?? Interpreted By: JAMES CONTE MD ?? Transcribed On: 12/16/16 163 - INFCE ? CC: ? MAURY HILLMAN MD Procedure Note Zohra Grace MD - 01/26/2018 [place], [place] Department of Radiology EMERALD KLEIN MD: MAURY HILLMAN MD Acct: [id number] : 1940 Pt Type: REG ER Sex: F Ord Site: MAIN Study Date Accession # Procedure Code Procedure 12/16/[id number] PLVAP XR Pelvis AP Signed Exam description: Pelvis- 1 view Exam time: 1552 hours. Comparison: No previous available. Exam History: Pain Findings: No fractures or other acute bony abnormalities identified. Hipjoint spaces well-maintained with no significant arthritic changes. No destructivebony abnormalities. Markers noted from presumed previous ventral hernia repair. IMPRESSION: No acute bony abnormality. Electronically Signed By: JAMES CONTE MD 09/13/17 1633 Dictated On: 12/16/16 1632 Interpreted By: JAMES CONTE MD Transcribed On: 12/16/16 1632 - INFCE CC: MAURY HILLMAN MD Maury Hillman MD GENERAL IMAGING Final Result documented in this encounter Visit Diagnoses Not on filedocumented in this encounter
--- OUTSIDE RECORDS SUMMARY | 2024-03-20 22:48 | XMS_ITS | Encounter Summary ---
Author Organization [facility] Address [address] [place] [address]. [place], [place] [address] [place] [address] Care Team Providers Care Traffic Chief Name Role Phone Jarret Kwong MD Primary Care Provider Go Hanna MD Unavailable Unavailable Encounter Details Date Type Department Care Team (Late st Contact Info) Description 09/08/2016 Abstract [facility] [address] [facility] [place] [address] Jarret Kwong MD [address] [place] [phone] Social History Tobacco Use Types Packs/Day Years Used Date Smoking Tobacco: Never Comments Unknown Sex and Gender Information Value Date Recorded Sex Assigned at Not on file Legal Sex Female 12:12 AM CDT Gender Identity Not on file Sexual Orientation Not on file documented as of this encounter Plan of Treatment Not on file documented as of this encounter Visit Diagnoses Diagnosis Pleurodynia Painful respiration documented in this encounter Care Teams Traffic Chief Relationship Specialty Start Date End Date Jarret Kwong MD [address] [place] [phone] PCP - General FAMILY PRACTICE 12/27/17 Go Hanna MD [address] [place] [phone] INTERVENTIONAL CARDIOLOGY 12/27/17 04/23/19 documented as of this encounter
--- OUTSIDE RECORDS SUMMARY | 2024-03-20 22:48 | XMS_ITS | Encounter Summary ---
Author Organization [facility] Address [address] [place] [address]. [place] [address] [place] [address] Care Team Providers Care Vocational Rehabilitation Counselor Name Role Phone Unavailable Primary Care Provider Unavailabl e Encounter Details Date Type Department Care Team (Late st Contact Info) Description 07/31/2016 Orders Only [place] [address] , Generic Conversion, Social History [...] Associated Diagnosis Comments HEMOGLOBIN AND HEMATOCRIT TIMED 07/31/2016 6:17 PM CDT documented in this encounter Results * (ABNORMAL) HEMOGLOBIN AND HEMATOCRIT (07/31/2016 6:17 PM CDT) HGB 8.7(L) 12.0 - 16.0 G/DL 07/31/2016 5:33 PM CDT [facility] HCT 26.9(L) 36.0 - 47.0 % 07/31/2016 5:33 PM CDT [facility] PLASMA SPECIMEN / Unknown 07/31/2016 6:17 PM CDT 07/31/2016 5:18 PM CDT us Generic Conversion Md [facility] Final R esult [facility] [address] [place] [address], [phone] documented in this encounter Visit Diagnoses Not on filedocumented in this encounter
--- OUTSIDE RECORDS SUMMARY | 2024-03-20 22:48 | XMS_ITS | Encounter Summary ---
Author Organization [facility] Address [address] [place] [address]. [place] [address] [place] [address] Care Team Providers Care Fabric Worker Name Role Phone Jarret Kwong MD Primary Care Provider [phone] Go Hanna MD Unavailable Unavailable Encounter Details Date Type Department Care Team (Late st Contact Info) Description 12/03/2013 Abstract [facility] [address] [place] [address] Hasmukh Garcia MD [address] [place] [phone] Social History Tobacco Use Types Packs/Day Years Used Date Smoking Tobacco: Never Comments Unknown Sex and Gender Information Value Date Recorded Sex Assigned at Not on file Legal Sex Female 12:12 AM CDT Gender Identity Not on file Sexual Orientation Not on file documented as of this encounter Plan of Treatment Not on file documented as of this encounter Visit Diagnoses Diagnosis Open wound of finger Open wound of finger(s) , without mention of complication documented in this encounter Care Teams Fabric Worker Relationship Specialty Start Date End Date Jarret Kwong MD [address] [place] [phone] PCP - General FAMILY PRACTICE 12/27/17 Go Hanna MD [address] [place] [phone] INTERVENTIONAL CARDIOLOGY 12/27/17 04/23/19 documented as of this encounter
--- OUTSIDE RECORDS SUMMARY | 2024-03-20 22:48 | XMS_ITS | Encounter Summary ---
Author Organization [facility] Address [address] [place] [address]. [place] [address] [place] [address] Care Team Providers Care Traffic Clerk Name Role Phone Unavailable Primary Care Provider Unavailabl e Encounter Details Date Type Department Care Team (Late st Contact Info) Description 07/31/2016 Abstract [facility] [address] [place] [address] Jenny Moran MD [address] [place] [address] [address] [address] [place] [address] Social History Tobacco Use Types Packs/Day Years Used Date Smoking Tobacco: Never Comments Unknown Sex and Gender Information Value Date Recorded Sex Assigned at Not on file Legal Sex Female 12:12 AM CDT Gender Identity Not on file Sexual Orientation Not on file documented as of this encounter Plan of Treatment Not on file documented as of this encounter Visit Diagnoses Diagnosis Primary osteoarthritis of left knee Primary localized osteoarthrosis, lower leg documented in this encounter
--- OUTSIDE RECORDS SUMMARY | 2024-03-20 22:48 | XMS_ITS | Encounter Summary ---
Author Organization [facility] Address [address] [place] [address]. [place], [place] [address] [place] [address] Care Team Providers Care Guard Immigration Name Role Phone Unavailable Primary Care Provider Unavailabl e Reason for Visit * Reason Comments Echo (SCAN) Encounter Details Date Type Department Care Team ([facility] Contact Info) Description 04/27/2016 Scan [facility] [address] [place] [phone] Scanned, Documents Echo (SCAN) Social History Tobacco [...] Procedure Name Priority Date/Time Associated Diagnosis Comments ECHO GENERIC (SCAN ORDER) Routine 04/27/2016 documented in this encounter Results * ECHO (04/27/2016) Anatomical Region Laterality Modality Other us Documents Scanned SCANNING Final Result documented in this encounter Visit Diagnoses Not on filedocumented in this encounter
--- OUTSIDE RECORDS SUMMARY | 2024-03-20 22:48 | XMS_ITS | Encounter Summary ---
Author Organization [facility] Address [address] [place] [address]. [place] [address] [place] [address] Care Team Providers Care Corduroy Brusher Operator Name Role Phone Jarret Kwong MD Primary Care Provider Go Hanna MD Unavailable Unavailable Encounter Details Date Type Department Care Team (Late st Contact Info) Description 12/20/2012 Abstract [facility] [address] [place] [address] Jenny Moran MD [address] [place] [address] [address] [address] [place], [place] [phone] Social History Tobacco Use Types Packs/Day Years [...] this encounter Visit Diagnoses Diagnosis Pain in joint, lower leg documented in this encounter Care Teams Corduroy Brusher Operator Relationship Specialty Start Date End Date Jarret Kwong MD [address] [place] [phone] PCP - General FAMILY PRACTICE 12/27/17 Go Hanna MD [address] [place] [phone] INTERVENTIONAL CARDIOLOGY 12/27/17 04/23/19 documented as of this encounter
--- OUTSIDE RECORDS SUMMARY | 2024-03-20 22:48 | XMS_ITS | Encounter Summary ---
Author Organization [facility] Address [address] [place] [address]. [place], [place] [address] [place] [address] Care Team Providers Care Sfdc Technical Architect Name Role Phone Unavailable Primary Care Provider Unavailabl e Encounter Details Date Type Department Care Team (Latest Contact Info) Description 11/05/2016 Abstract [facility] Medical [facility] [...]
--- OUTSIDE RECORDS SUMMARY | 2024-03-20 22:48 | XMS_ITS | Encounter Summary ---
Author Organization [facility] Address [address] [place] [address]. [place] [address] [place] [address] Care Team Providers Care Charter Boat Captain Name Role Phone Jarret Kwong MD Primary Care Provider Go Hanna MD Unavailable Unavailable Encounter Details Date Type Department Care Team (Late st Contact Info) Description 01/23/2014 Abstract [facility] [address] [place] [address] Jenny Moran MD [address] [place] [address] [address] [address] [place], [place] [id number] Social History Tobacco Use Types Packs/Day Years Used Date Smoking Tobacco: Never Comments Unknown Sex and Gender Information Value Date Recorded Sex Assigned at Not on file Legal Sex Female 12:12 AM CDT Gender Identity Not on file Sexual Orientation Not on file documented as of this encounter Plan of Treatment Not on file documented as of this encounter Visit Diagnoses Diagnosis Aftercare following joint replacement documented in this encounter Care Teams Charter Boat Captain Relationship Specialty Start Date End Date Jarret Kwong MD [address] [place] [phone] PCP - General FAMILY PRACTICE 12/27/17 Go Hanna MD [address] [place] [phone] INTERVENTIONAL CARDIOLOGY 12/27/17 04/23/19 documented as of this encounter
--- OUTSIDE RECORDS SUMMARY | 2024-03-20 22:48 | XMS_ITS | Encounter Summary ---
Author Organization [facility] Address [address] [place] [address]. [place] [address] [place] [address] Care Team Providers Care Telephone Maintainer Name Role Phone Jarret Kwong MD Primary Care Provider Go Hanna MD Unavailable Unavailable Encounter Details Date Type Department Care Team (Late st Contact Info) Description 11/26/2014 Abstract [facility] [address] [facility] [place] [address] Jarret Kwong MD [address] [place] [phone] Social History Tobacco Use Types Packs/Day [...] of this encounter Visit Diagnoses Diagnosis Other screening mammogram documented in this encounter Care Teams Telephone Maintainer Relationship Specialty Start Date End Date Jarret Kwong MD [address] [place] [phone] PCP - General FAMILY PRACTICE 12/27/17 Go Hanna MD [address] [place] [phone] INTERVENTIONAL CARDIOLOGY 12/27/17 04/23/19 documented as of this encounter
--- OUTSIDE RECORDS SUMMARY | 2024-03-20 22:48 | XMS_ITS | Encounter Summary ---
Author Organization [facility] Address [address] [place] [address]. [place] [address] [place] [address] Care Team Providers Care Regional Facilities Specialist Name Role Phone Jarret Kwong MD Primary Care Provider Go Hanna MD Unavailable Unavailable Encounter Details Date Type Department Care Team (Late st Contact Info) Description 12/19/2013 Abstract [facility] [address] [place] [address] Jenny Moran MD [address] [place] [address] [address] [address] [place], [place] [phone] Social History Tobacco Use Types Packs/Day Years [...] encounter Visit Diagnoses Diagnosis Pain in joint, pelvic region and thigh documented in this encounter Care Teams Regional Facilities Specialist Relationship Specialty Start Date End Date Jarret Kwong MD [address] [place] [phone] PCP - General FAMILY PRACTICE 12/27/17 Go Hanna MD [address] [place] [phone] INTERVENTIONAL CARDIOLOGY 12/27/17 04/23/19 documented as of this encounter
--- OUTSIDE RECORDS SUMMARY | 2024-03-20 22:48 | XMS_ITS | Encounter Summary ---
Author Organization [facility] Address [address] [place] [address]. [place] [address] [place] [address] Care Team Providers Care Internal Control Specialist Name Role Phone Jarret Kwong MD Primary Care Provider Go Hanna MD Unavailable Unavailable Encounter Details Date Type Department Care Team (Late st Contact Info) Description 01/24/2013 Abstract [facility] [address] [place] [address] Jarret Kwong MD [address] [place] [phone] Social History Tobacco Use Types Packs/Day [...] on filedocumented in this encounter Care Teams Internal Control Specialist Relationship Specialty Start Date End Date Jarret Kwong MD [address] [place] [phone] PCP - General FAMILY PRACTICE 12/27/17 Go Hanna MD [address] [place] [phone] INTERVENTIONAL CARDIOLOGY 12/27/17 04/23/19 documented as of this encounter
--- OUTSIDE RECORDS SUMMARY | 2024-03-20 22:48 | XMS_ITS | Encounter Summary ---
Author Organization [facility] Address [address] [place] [address]. [place] [address] [place] [address] Care Team Providers Care Director Broadcast Name Role Phone Jarret Kwong MD Primary Care Provider Go Hanna MD Unavailable Unavailable Encounter Details Date Type Department Care Team (Late st Contact Info) Description 07/05/[address] [facility] [place] [address] [place] [address] Jarret Kwong MD [address] [place] [phone] Social History Tobacco Use Types Packs/Day Years Used Date Smoking Tobacco: Never Comments Unknown Sex and Gender Information Value Date Recorded Sex Assigned at Not on file Legal Sex Female 12:12 AM CDT Gender Identity Not on file Sexual Orientation Not on file documented as of this encounter Plan of Treatment Not on file documented as of this encounter Visit Diagnoses Diagnosis Iron deficiency anemia Iron deficiency anemia, unspecified documented in this encounter Care Teams Director Broadcast Relationship Specialty Start Date End Date Jarret Kwong MD [address] [place] [phone] PCP - General FAMILY PRACTICE 12/27/17 Go Hanna MD [address] [place] [phone] INTERVENTIONAL CARDIOLOGY 12/27/17 04/23/19 documented as of this encounter
--- OUTSIDE RECORDS SUMMARY | 2024-03-20 22:48 | XMS_ITS | Encounter Summary ---
Author Organization [facility] Address [address] [place] [address]. [place] [address] [place] [address] Care Team Providers Care Medical Specialist Name Role Phone Unavailable Primary Care Provider Unavailabl e Encounter Details Date Type Department Care Team (Late st Contact Info) Description 08/01/2016 Orders Only [place] [address] , Generic Conversion, Social History [...] Associated Diagnosis Comments HEMOGLOBIN AND HEMATOCRIT TIMED 08/01/2016 5:51 PM CDT documented in this encounter Results * (ABNORMAL) HEMOGLOBIN AND HEMATOCRIT (08/01/2016 5:51 PM CDT) HGB 8.7(L) 12.0 - 16.0 G/DL 08/01/2016 5:04 PM CDT [facility] HCT 26.5(L) 36.0 - 47.0 % 08/01/2016 5:04 PM CDT [facility] PLASMA SPECIMEN / Unknown 08/01/2016 5:51 PM CDT 08/01/2016 4:52 PM CDT us Generic Conversion Md [facility] Final R esult [facility] [address] [place] [address], [id number] documented in this encounter Visit Diagnoses Not on filedocumented in this encounter
--- OUTSIDE RECORDS SUMMARY | 2024-03-20 22:48 | XMS_ITS | Encounter Summary ---
Author Organization [facility] Address [address] [place] [address]. [place] [address] [place] [address] Care Team Providers Care Rn Referral Name Role Phone Jarret Kwong MD Primary Care Provider Go Hanna MD Unavailable Unavailable Encounter Details Date Type Department Care Team (Late st Contact Info) Description 07/21/2013 Abstract [facility] [address] [place] [address] Tri Garcia PA-C [address] [place] [address] Social History Tobacco Use Types Packs/Day Years [...] on filedocumented in this encounter Care Teams Rn Referral Relationship Specialty Start Date End Date Jarret Kwong MD [address] [place] [phone] PCP - General FAMILY PRACTICE 12/27/17 Go Hanna MD [address] [place] [phone] INTERVENTIONAL CARDIOLOGY 12/27/17 04/23/19 documented as of this encounter
--- OUTSIDE RECORDS SUMMARY | 2024-03-20 22:48 | XMS_ITS | Encounter Summary ---
Author Organization [facility] Address [address] [place] [address]. [place] [address] [place] [address] Care Team Providers Care Diver Assistant Name Role Phone Unavailable Primary Care Provider Unavailabl e Encounter Details Date Type Department Care Team (Late st Contact Info) Description 12/29/2013 Abstract [facility] [address] [place] [address] Jenny Moran MD [address] [place] [address] [address] [address] [place] [address] Social History Tobacco Use Types Packs/Day Years Used Date Smoking Tobacco: Never Comments Unknown Sex and Gender Information Value Date Recorded Sex Assigned at Not on file Legal Sex Female 12:12 AM CDT Gender Identity Not on file Sexual Orientation Not on file documented as of this encounter Plan of Treatment Not on file documented as of this encounter Visit Diagnoses Diagnosis Localized osteoarthrosis, lower leg Localized osteoarthrosis not specified whether primary or secondary, lower leg documented in this encounter
--- OUTSIDE RECORDS SUMMARY | 2024-03-20 22:48 | XMS_ITS | Encounter Summary ---
Author Organization [facility] Address [address] [place] [address]. [place] [address] [place] [address] Care Team Providers Care Consolidator Name Role Phone Jarret Kwong MD Primary Care Provider Go Hanna MD Unavailable Unavailable Encounter Details Date Type Department Care Team (Late st Contact Info) Description 07/21/2013 Abstract [facility] [address] [place] [address] Tri Garcia PA-C [address] [place] [address] Social History Tobacco Use Types Packs/Day Years [...] on filedocumented in this encounter Care Teams Consolidator Relationship Specialty Start Date End Date Jarret Kwong MD [address] [place] [phone] PCP - General FAMILY PRACTICE 12/27/17 Go Hanna MD [address] [place] [phone] INTERVENTIONAL CARDIOLOGY 12/27/17 04/23/19 documented as of this encounter
--- OUTSIDE RECORDS SUMMARY | 2024-03-20 22:48 | XMS_ITS | Encounter Summary ---
Author Organization [facility] Address [address] [place] [address]. [place], [place] [address] [place] [address] Care Team Providers Care Auto Wheel Alignment Specialist Name Role Phone Unavailable Primary Care Provider Unavailabl e Encounter Details Date Type Department Care Team (Latest Contact Info) Description 08/02/2016 Abstract [facility] Medical Group Social History Tobacco Use [...]
--- OUTSIDE RECORDS SUMMARY | 2024-03-20 22:48 | XMS_ITS | Encounter Summary ---
Author Organization [facility] Address [address] [place] [address]. [place] [address] [place] [address] Care Team Providers Care Carbon Paper Coating Supervisor Name Role Phone Unavailable Primary Care Provider Unavailabl e Encounter Details Date Type Department Care Team (Late st Contact Info) Description 12/16/2016 Orders [place] [address] , Generic Conversion, Social History [...] Date/Time Associated Diagnosis Comments TYPE & SCREEN TIMED 12/16/2016 3:44 PM CDT documented in this encounter Results * TYPE & SCREEN (12/16/2016 3:44 PM CDT) UNITS ORDERED 2 12/16/2016 5:15 PM CDT [facility] ABO/RH O POSITIVE 12/16/2016 4:01 PM CDT [facility] ANTIBODY SCREEN POSITIVE 7 4:01 PM CDT [facility] SAMPLE EXPIRATION 12/19/2016 12/16/2016 2:56 PM CDT [facility] ANTIBODY ID ANTI-c UNIDENTIFIED ANTIBODY 12/16/2016 5:15 PM CDT [facility] PATIENT ANTIGEN TYPE E NEG 12/16/2016 4:50 PM CDT [facility] BLOOD UNIT NUMBER [id number] 12/16/2016 5:15 PM CDT [facility] PRODUCT: PC LEUKOPOOR 12/16/2016 5:15 PM CDT [facility] UNIT DIVISION 00 12/16/2016 5:15 PM CDT [facility] BLOOD UNIT STATUS UNIT RELEASED 12/16/2016 5:15 PM CDT [facility] TRANSFUSION STATUS DO NOT ISSUE FOR TRANSFUSION 12/16/2016 5:15 PM CDT [facility] BLOOD UNIT NUMBER [id number] 12/16/2016 5:15 PM CDT [facility] PRODUCT: PC LEUKOPOOR 12/16/2016 5:15 PM CDT [facility] UNIT DIVISION 00 12/16/2016 5:15 PM CDT [facility] BLOOD UNIT STATUS UNIT RELEASED 12/16/2016 5:15 PM CDT [facility] TRANSFUSION STATUS DO NOT ISSUE FOR TRANSFUSION 12/16/2016 5:15 PM CDT [facility] BLOOD UNIT NUMBER [id number] 12/16/2016 5:15 PM CDT [facility] PRODUCT: PC LEUKOPOOR 12/16/2016 5:15 PM CDT [facility] UNIT DIVISION 00 12/16/2016 5:15 PM CDT [facility] BLOOD UNIT STATUS UNIT RELEASED 12/16/2016 5:15 PM CDT [facility] TRANSFUSION STATUS DO NOT ISSUE FOR TRANSFUSION 12/16/2016 5:15 PM CDT [facility] BLOOD UNIT NUMBER [id number] 12/16/2016 5:15 PM CDT [facility] PRODUCT: PC LEUKOPOOR 12/16/2016 5:15 PM CDT [facility] UNIT DIVISION 00 12/16/2016 5:15 PM CDT [facility] BLOOD UNIT STATUS UNIT RELEASED 12/16/2016 5:15 PM CDT [facility] TRANSFUSION STATUS DO NOT ISSUE FOR TRANSFUSION 12/16/2016 5:15 PM CDT [facility] BLOOD UNIT NUMBER [id number] 12/16/2016 7:15 PM CDT [facility] PRODUCT: PC LEUKOPOOR 12/16/2016 7:15 PM CDT [facility] UNIT DIVISION 12/16/2016 7:15 PM CDT [facility] BLOOD UNIT STATUS UNIT RELEASED 12/19/2016 10:42 PM CDT [facility] UNIT ANTIGEN TYPE E NEG c NEG 12/16/2016 7:15 PM CDT [facility] TRANSFUSION STATUS OK TO TRANSFUSE 12/16/2016 7:21 PM CDT [facility] CROSSMATCH COMPATIBLE 12/16/2016 7:21 PM CDT [facility] BLOOD UNIT NUMBER [id number] 12/16/2016 7:15 PM CDT [facility] PRODUCT: PC LEUKOPOOR 12/16/2016 7:15 PM CDT [facility] UNIT DIVISION 12/16/2016 7:15 PM CDT [facility] BLOOD UNIT STATUS UNIT RELEASED 12/19/2016 10:42 PM CDT [facility] UNIT ANTIGEN TYPE E NEG c NEG 12/16/2016 7:15 PM CDT [facility] TRANSFUSION STATUS OK TO TRANSFUSE 12/16/2016 7:21 PM CDT [facility] CROSSMATCH COMPATIBLE 12/16/2016 7:21 PM CDT [facility] 12/16/2016 3:44 PM CDT 12/16/2016 2:53 PM CDT Comment:SERUM SPECIMEN~ACELL ULAR BLOOD (SERUM OR PLASMA) SPECIMEN us Generic Conversion Md [facility] ORDERAB LES Final Result [facility] [address] [place] [address], [id number] documented in this encounter Visit Diagnoses Not on filedocumented in this encounter
--- OUTSIDE RECORDS SUMMARY | 2024-03-20 22:48 | XMS_ITS | Encounter Summary ---
Author Organization [facility] Address [address] [place] [address]. [place] [address] [place] [address] Care Team Providers Care Assistant Business Manager Name Role Phone Jarret Kwong MD Primary Care Provider Go Hanna MD Unavailable Unavailable Encounter Details Date Type Department Care Team (Late st Contact Info) Description 07/25/2015 Abstract [facility] [address] [place] [address] Jarret Kwong MD [address] [place] [phone] Social History Tobacco Use Types Packs/Day [...] osteoporosis documented in this encounter Care Teams Assistant Business Manager Relationship Specialty Start Date End Date Jarret Kwong MD [address] [place] [phone] PCP - General FAMILY PRACTICE 12/27/17 Go Hanna MD [address] [place] [phone] INTERVENTIONAL CARDIOLOGY 12/27/17 04/23/19 documented as of this encounter
--- OUTSIDE RECORDS SUMMARY | 2024-03-20 22:48 | XMS_ITS | Encounter Summary ---
Author Organization [facility] Address [address] [place] [address]. [place], [place] [address] [place] [address] Care Team Providers Care Reheat Furnace Operator Name Role Phone Unavailable Primary Care Provider Unavailabl e Encounter Details Date Type Department Care Team (Late st Contact Info) Description 12/16/2016 Abstract [facility] [address] [place] [address] Social History Tobacco Use Types Packs/Day Years Used Date Smoking Tobacco: Never Comments Unknown Sex and Gender Information Value Date Recorded Sex Assigned at Not on file Legal Sex Female 12:12 AM CDT Gender Identity Not on file Sexual Orientation Not on file documented as of this encounter Plan of Treatment Not on file documented as of this encounter Visit Diagnoses Diagnosis Multiple closed fractures of ribs of right side Closed fracture of multiple ribs, unspecified documented in this encounter
--- OUTSIDE RECORDS SUMMARY | 2024-03-20 22:48 | XMS_ITS | Encounter Summary ---
Author Organization [facility] Address [address] [place] [address]. [place], [place] [address] [place] [address] Care Team Providers Care Turnstile Attendant Name Role Phone Jarret Kwong MD Primary Care Provider [phone] Go Hanna MD Unavailable Unavailable Encounter Details Date Type Department Care Team (Late st Contact Info) Description 02/21/2015 Abstract [facility] [address] [facility] [place] [address] Jarret Kwong MD [address] [place] [phone] Social History Tobacco Use Types Packs/Day Years Used Date Smoking Tobacco: Never Comments Unknown Sex and Gender Information Value Date Recorded Sex Assigned at Not on file Legal Sex Female 12:12 AM CDT Gender Identity Not on file Sexual Orientation Not on file documented as of this encounter Plan of Treatment Not on file documented as of this encounter Visit Diagnoses Diagnosis Low back pain Lumbago documented in this encounter Care Teams Turnstile Attendant Relationship Specialty Start Date End Date Jarret Kwong MD [address] [place] [phone] PCP - General FAMILY PRACTICE 12/27/17 Go Hanna MD [address] [place] [phone] INTERVENTIONAL CARDIOLOGY 12/27/17 04/23/19 documented as of this encounter
--- OUTSIDE RECORDS SUMMARY | 2024-03-20 22:48 | XMS_ITS | Encounter Summary ---
Author Organization [facility] Address [address] [place] [address]. [place], [place] [address] [place] [address] Care Team Providers Care Blindstitch Lapel Padder Name Role Phone Jarret Kwong MD Primary Care Provider Go Hanna MD Unavailable Unavailable Encounter Details Date Type Department Care Team (Late st Contact Info) Description 10/11/2012 Abstract [facility] [address] [facility] [place] [address] Cortes Hummel MD [address] [place] [address] Social History Tobacco Use Types Packs/Day Years [...] Lumbago documented in this encounter Care Teams Blindstitch Lapel Padder Relationship Specialty Start Date End Date Jarret Kwong MD [address] [place] [phone] PCP - General FAMILY PRACTICE 12/27/17 Go Hanna MD [address] [place] [phone] INTERVENTIONAL CARDIOLOGY 12/27/17 04/23/19 documented as of this encounter
--- OUTSIDE RECORDS SUMMARY | 2024-03-20 22:48 | XMS_ITS | Encounter Summary ---
Author Organization [facility] Address [address] [place] [address]. [place], [place] [address] [place] [address] Care Team Providers Care Design/Animation Instructor Name Role Phone Unavailable Primary Care Provider Unavailabl e Encounter Details Date Type Department Care Team (Latest Contact Info) Description 07/31/2016 Abstract [facility] Social History Tobacco [...]
--- OUTSIDE RECORDS SUMMARY | 2024-03-20 22:48 | XMS_ITS | Encounter Summary ---
Author Organization [facility] Address [address] [place] [address]. [place], [place] [address] [place] [address] Care Team Providers Care Cartridge Assembling Machine Adjuster Name Role Phone Unavailable Primary Care Provider Unavailabl e Encounter Details Date Type Department Care Team (Latest Contact Info) Description 12/16/2016 Abstract [facility] Social History [...]
--- OUTSIDE RECORDS SUMMARY | 2024-03-20 22:48 | XMS_ITS | Encounter Summary ---
Author Organization [facility] Address [address] [place] [address]. 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
--- OUTSIDE RECORDS SUMMARY | 2024-03-20 22:48 | XMS_ITS | Encounter Summary ---
Author Organization [facility] Address [address] [place] [address]. [place] [address] [place] [address] Care Team Providers Care Front Office Assistant Name Role Phone Jarret Kwong MD Primary Care Provider Go Hanna MD Unavailable Unavailable Encounter Details Date Type Department Care Team (Late st Contact Info) Description 05/06/2015 Abstract [facility] [address] [facility] [place] [address] Social History Tobacco Use Types Packs/Day Years Used Date Smoking Tobacco: Never Comments Unknown Sex and Gender Information Value Date Recorded Sex Assigned at Not on file Legal Sex Female 12:12 AM CDT Gender Identity Not on file Sexual Orientation Not on file documented as of this encounter Plan of Treatment Not on file documented as of this encounter Visit Diagnoses Diagnosis Contusion of scalp Contusion of face, scalp, and neck except eye(s) documented in this encounter Care Teams Front Office Assistant Relationship Specialty Start Date End Date Jarret Kwong MD [address] [place] [phone] PCP - General FAMILY PRACTICE 12/27/17 Go Hanna MD [address] [place] [phone] INTERVENTIONAL CARDIOLOGY 12/27/17 04/23/19 documented as of this encounter
--- OUTSIDE RECORDS SUMMARY | 2024-03-20 22:48 | XMS_ITS | Encounter Summary ---
Author Organization [facility] Address [address] [place] [address]. [place] [address] [place] [address] Care Team Providers Care Director Veterinary Name Role Phone Unavailable Primary Care Provider Unavailabl e Encounter Details Date Type Department Care Team (Late st Contact Info) Description 08/02/2016 Orders Only [place] [address] , Generic Conversion, Social History [...] Associated Diagnosis Comments HEMOGLOBIN AND HEMATOCRIT TIMED 08/02/2016 5:49 PM CDT documented in this encounter Results * (ABNORMAL) HEMOGLOBIN AND HEMATOCRIT (08/02/2016 5:49 PM CDT) HGB 8.2(L) 12.0 - 16.0 G/DL 08/02/2016 4:54 PM CDT [facility] HCT 24.8(L) 36.0 - 47.0 % 08/02/2016 4:54 PM CDT [facility] PLASMA SPECIMEN / Unknown 08/02/2016 5:49 PM CDT 08/02/2016 4:50 PM CDT us Generic Conversion Md [facility] Final R esult [facility] [address] [place] [address], [id number] documented in this encounter Visit Diagnoses Not on filedocumented in this encounter
--- OUTSIDE RECORDS SUMMARY | 2024-03-20 22:48 | XMS_ITS | Encounter Summary ---
Author Organization [facility] Address [address] [place] [address]. [place] [address] [place] [address] Care Team Providers Care Oil Refinery Operator Name Role Phone Unavailable Primary Care Provider Unavailabl e Encounter Details Date Type Department Care Team (Late st Contact Info) Description 12/16/2016 Orders Only [facility]STOP[place] [address] , Generic Conversion, Social History [...] POCT GLUCOSE - HOOVER DOCKED DEVICE Routine 12/16/2016 6:21 PM CDT documented in this encounter Results * (ABNORMAL) POCT glucose (12/16/2016 6:21 PM CDT) GLUCOSE POC 142(H) 70 - 109 12/17/2016 11:16 AM CDT [facility] ORDERS INTERFACE WHOLE BLOOD SPECIMEN / Unknown 12/16/2016 6:21 PM CDT 12/17/2016 11:16 AM CDT us Generic Conversion Md [facility] POCT ORDERABLES - DEVIC E Final Result [facility] ORDERS INTERFACE US documented in this encounter Visit Diagnoses Not on filedocumented in this encounter
--- OUTSIDE RECORDS SUMMARY | 2024-03-20 22:48 | XMS_ITS | Encounter Summary ---
Author Organization [facility] Address [address] [place] [address]. [place] [address] [place] [address] Care Team Providers Care Sales And Service Associate Name Role Phone Jarret Kwong MD Primary Care Provider [phone] Go Hanna MD Unavailable Unavailable Encounter Details Date Type Department Care Team (Late st Contact Info) Description 10/07/2012 Abstract [facility] [address] [place] [address] Jarret Kwong MD [address] [place] [phone] Social History Tobacco Use Types Packs/Day Years Used Date Smoking Tobacco: Never Comments Unknown Sex and Gender Information Value Date Recorded Sex Assigned at Not on file Legal Sex Female 12:12 AM CDT Gender Identity Not on file Sexual Orientation Not on file documented as of this encounter Plan of Treatment Not on file documented as of this encounter Visit Diagnoses Diagnosis Thoracic or lumbosacral neuritis or radiculitis Thoracic or lumbosacral neuritis or radiculitis, unspecified documented in this encounter Care Teams Sales And Service Associate Relationship Specialty Start Date End Date Jarret Kwong MD [address] [place] [phone] PCP - General FAMILY PRACTICE 12/27/17 Go Hanna MD [address] [place] [phone] INTERVENTIONAL CARDIOLOGY 12/27/17 04/23/19 documented as of this encounter
--- OUTSIDE RECORDS SUMMARY | 2024-03-20 22:48 | XMS_ITS | Encounter Summary ---
Author Organization [facility] Address [address] [place] [address]. [place] [address] [place] [address] Care Team Providers Care Tipple Engineer Name Role Phone Jarret Kwong MD Primary Care Provider Go Hanna MD Unavailable Unavailable Encounter Details Date Type Department Care Team (Late st Contact Info) Description 11/26/2016 Abstract [facility] [address] [place] [address] [place] [address] Jarret Kwong MD [address] [place] [phone] Social History Tobacco Use Types Packs/Day [...] osteoporosis documented in this encounter Care Teams Tipple Engineer Relationship Specialty Start Date End Date Jarret Kwong MD [address] [place] [phone] PCP - General FAMILY PRACTICE 12/27/17 Go Hanna MD [address] [place] [phone] INTERVENTIONAL CARDIOLOGY 12/27/17 04/23/19 documented as of this encounter
--- OUTSIDE RECORDS SUMMARY | 2024-03-20 22:48 | XMS_ITS | Encounter Summary ---
Author Organization [facility] Address [address] [place] [address]. [place] [address] [place] [address] Care Team Providers Care Closing Agent Name Role Phone Jarret Kwong MD Primary Care Provider Go Hanna MD Unavailable Unavailable Encounter Details Date Type Department Care Team (Late st Contact Info) Description 03/02/2016 Abstract [facility] [address] [place] [address] Jarret Kwong MD [address] [place] [phone] Social History Tobacco Use Types Packs/Day [...] on filedocumented in this encounter Care Teams Closing Agent Relationship Specialty Start Date End Date Jarret Kwong MD [address] [place] [phone] PCP - General FAMILY PRACTICE 12/27/17 Go Hanna MD [address] [place] [phone] INTERVENTIONAL CARDIOLOGY 12/27/17 04/23/19 documented as of this encounter
--- OUTSIDE RECORDS SUMMARY | 2024-03-20 22:48 | XMS_ITS | Encounter Summary ---
Author Organization [facility] Address [address] [place] [address]. [place], [place] [address] [place] [address] Care Team Providers Care Robotics Testing Technician Name Role Phone Unavailable Primary Care Provider Unavailabl e Encounter Details Date Type Department Care Team (Latest Contact Info) Description 08/01/2016 Abstract [facility] Social History Tobacco Use Types [...]
--- OUTSIDE RECORDS SUMMARY | 2024-03-20 22:48 | XMS_ITS | Encounter Summary ---
Author Organization [facility] Address [address] [place] [address]. [place] [address] [place] [address] Care Team Providers Care Media Center Director School Name Role Phone Jarret Kwong MD Primary Care Provider Go Hanna MD Unavailable Unavailable Encounter Details Date Type Department Care Team (Late st Contact Info) Description 10/30/2013 Abstract [facility] [address] [place] [address] Jenny Moran MD [address] [place] [address] [address] [address] [place], [place] [address] Social History Tobacco Use Types Packs/Day Years [...] on filedocumented in this encounter Care Teams Media Center Director School Relationship Specialty Start Date End Date Jarret Kwong MD [address] [place] [phone] PCP - General FAMILY PRACTICE 12/27/17 Go Hanna MD [address] [place] [phone] INTERVENTIONAL CARDIOLOGY 12/27/17 04/23/19 documented as of this encounter
--- OUTSIDE RECORDS SUMMARY | 2024-03-20 22:48 | XMS_ITS | Encounter Summary ---
Author Organization [facility] Address [facility] [place] [address] [place] [address] Care Team Providers Care Oil Dispatcher Name Role Phone Jarret Kwong MD Primary Care Provider Go Hanna MD Unavailable Unavailable Encounter Details Date Type Department Care Team (Late st Contact Info) Description 05/18/2014 Abstract [facility] [address] [place] [address] Jenny Moran MD [address] [place] [address] [address] [address] [place], [place] [phone] Social History Tobacco Use Types Packs/Day Years [...] on filedocumented in this encounter Care Teams Oil Dispatcher Relationship Specialty Start Date End Date Jarret Kwong MD [address] [place] [phone] PCP - General FAMILY PRACTICE 12/27/17 Go Hanna MD [address] [place] [phone] INTERVENTIONAL CARDIOLOGY 12/27/17 04/23/19 documented as of this encounter
--- OUTSIDE RECORDS SUMMARY | 2024-03-20 22:48 | XMS_ITS | Encounter Summary ---
Author Organization [facility] Address [address] [place] [address]. [place] [address] [place] [address] Care Team Providers Care Lacing Operator Name Role Phone Unavailable Primary Care Provider Unavailabl e Encounter Details Date Type Department Care Team (Late st Contact Info) Description 12/16/2016 Orders Only [place] [address] Md, Generic Conversion, Social History Tobacco Use Types [...] Procedure Name Priority Date/Time Associated Diagnosis Comments ANTIBODY INTERPRETATION TIMED 12/17/19 6:09 PM CDT documented in this encounter Results * ANTIBODY INTERPRETATION (12/16/2016 6:09 PM CDT) TRANSFUSION REACTION INTERP ANTI-c (RH4) IS IDENTIFIED IN THE SERUM. ANTI-c (RH4) CAN CAUSE HEMOLYTIC TRANSFUSION REACTION AND HEMOLYTIC DISEASE OF FETUS/. 20% OF DONOR BLOOD WILL BE c (RH4) ANTIGEN NEGATIVE. 12/24/2016 9:[address] [facility] Comment: AN ANTIBODY OF UNDETERMINED SPECIFICITY IS DETECTED IN THE SERUM. BASED ON THE EXTRA REACTIVITY SEEN WITH THIS ANTIBODY, ANTIGEN NEGATIVE UNITS (FOR THOSE ALLOANTIBODIES IDENTIFIED), MAY STILL BE [facility] CROSSMATCH INCOMPATIBLE, AND SHOULD NOT BE USED FOR TRANSFUSION. CAN'T RULE OUT ANTI E (RH3). TRANSFUSE c (RH4) neg, E (RH3) NEG, [facility] CROSSMATCH COMPATIBLE RED BLOOD CELL PRODUCTS. NOT REQUIRED 12/16/2016 6:09 PM CDT 12/16/2016 5:19 PM CDT us Generic Conversion Md [facility] BLOOD BANK TEST ORDERAB LES Final Result [facility] [address] [place] [address], [place] [phone] [id number] documented in this encounter Visit Diagnoses Not on filedocumented in this encounter
--- OUTSIDE RECORDS SUMMARY | 2024-03-20 22:48 | XMS_ITS | Encounter Summary ---
Author Organization [facility] Address [address] [place] [address]. [place], [place] [address] [place] [address] Care Team Providers Care Laundry Housekeeper Name Role Phone Jarret Kwong MD Primary Care Provider Go Hanna MD Unavailable Unavailable Encounter Details Date Type Department Care Team (Late st Contact Info) Description 04/15/2015 Abstract [facility] [address] [place] [address] , Zohra Chicas MD Social History Tobacco [...] Lumbago documented in this encounter Care Teams Laundry Housekeeper Relationship Specialty Start Date End Date Jarret Kwong MD [address] [place] [phone] PCP - General FAMILY PRACTICE 12/27/17 Go Hanna MD [address] [place] [phone] INTERVENTIONAL CARDIOLOGY 12/27/17 04/23/19 documented as of this encounter
--- OUTSIDE RECORDS SUMMARY | 2024-03-20 22:48 | XMS_ITS | Encounter Summary ---
Author Organization [facility] Address [address] [place] [address]. [place] [address] [place] [address] Care Team Providers Care Furniture Assembler And Installer Name Role Phone Jarret Kwong MD Primary Care Provider Go Hanna MD Unavailable Unavailable Encounter Details Date Type Department Care Team (Late st Contact Info) Description 02/21/2016 Abstract [facility] [address] [place] [address] Jarret Kwong MD [address] [place] [phone] Social History Tobacco Use Types Packs/Day [...] on filedocumented in this encounter Care Teams Furniture Assembler And Installer Relationship Specialty Start Date End Date Jarret Kwong MD [address] [place] [phone] PCP - General FAMILY PRACTICE 12/27/17 Go Hanna MD [address] [place] [phone] INTERVENTIONAL CARDIOLOGY 12/27/17 04/23/19 documented as of this encounter
--- OUTSIDE RECORDS SUMMARY | 2024-03-20 22:48 | XMS_ITS | Encounter Summary ---
Author Organization [facility] Address [address] [place] [address]. [place] [address] [place] [address] Care Team Providers Care Forest Botany Instructor Name Role Phone Jarret Kwong MD Primary Care Provider Go Hanna MD Unavailable Unavailable Encounter Details Date Type Department Care Team (Late st Contact Info) Description 04/24/2016 Abstract [facility] [address] [place] [address] Jarret Kwong MD [address] [place] [phone] Social History Tobacco Use Types Packs/Day Years Used Date Smoking Tobacco: Never Comments Unknown Sex and Gender Information Value Date Recorded Sex Assigned at Not on file Legal Sex Female 12:12 AM CDT Gender Identity Not on file Sexual Orientation Not on file documented as of this encounter Plan of Treatment Not on file documented as of this encounter Visit Diagnoses Diagnosis Tachycardia Tachycardia, unspecified documented in this encounter Care Teams Forest Botany Instructor Relationship Specialty Start Date End Date Jarret Kwong MD [address] [place] [phone] PCP - General FAMILY PRACTICE 12/27/17 Go Hanna MD [address] [place] [phone] INTERVENTIONAL CARDIOLOGY 12/27/17 04/23/19 documented as of this encounter
--- OUTSIDE RECORDS SUMMARY | 2024-03-20 22:48 | XMS_ITS | Encounter Summary ---
Author Organization [facility] Address [facility] [place] [place] [address] [place] [address] Care Team Providers Care Order Entry Name Role Phone aJrret Kwong MD Primary Care Provider Go Hanna MD Unavailable Unavailable Encounter Details Date Type Department Care Team (Late st Contact Info) Description 01/23/2014 Abstract [facility] Diagnostic Imaging [address] [place] [address] Jenny Moran MD [address] [place] [address] [address] [address] [place], [place] [address] Social History Tobacco Use Types Packs/Day Years [...] on filedocumented in this encounter Care Teams Order Entry Relationship Specialty Start Date End Date Jarret Kwong MD [address] [place] [phone] PCP - General FAMILY PRACTICE 12/27/17 Go Hanna MD [address] [place] [phone] INTERVENTIONAL CARDIOLOGY 12/27/17 04/23/19 documented as of this encounter
--- OUTSIDE RECORDS SUMMARY | 2024-03-20 22:48 | XMS_ITS | Encounter Summary ---
Author Organization [facility] Address [address] [place] [address]. [place] [address] [place] [address] Care Team Providers Care Supervisor Carton And Can Supply Name Role Phone Jarret Kwong MD Primary Care Provider Go Hanna MD Unavailable Unavailable Encounter Details Date Type Department Care Team (Late st Contact Info) Description 01/28/2016 Abstract [facility] [address] [place] [address] Jarret Kwong MD [address] [place] [phone] Social History Tobacco Use Types Packs/Day [...] osteoporosis documented in this encounter Care Teams Supervisor Carton And Can Supply Relationship Specialty Start Date End Date Jarret Kwong MD [address] [place] [phone] PCP - General FAMILY PRACTICE 12/27/17 Go Hanna MD [address] [place] [phone] INTERVENTIONAL CARDIOLOGY 12/27/17 04/23/19 documented as of this encounter
--- OUTSIDE RECORDS SUMMARY | 2024-03-20 22:48 | XMS_ITS | Encounter Summary ---
Author Organization [facility] Address [address] [place] [address]. [place] [address] [place] [address] Care Team Providers Care Program Director/Morning Show Host Name Role Phone Jarret Kwong MD Primary Care Provider Go Hanna MD Unavailable Unavailable Encounter Details Date Type Department Care Team (Late st Contact Info) Description 09/15/2014 Abstract [facility] [address] [facility] [place] [address] Jarret Kwong MD [address] [place] [phone] Social History Tobacco Use Types Packs/Day [...] on filedocumented in this encounter Care Teams Program Director/Morning Show Host Relationship Specialty Start Date End Date Jarret Kwong MD [address] [place] [phone] PCP - General FAMILY PRACTICE 12/27/17 Go Hanna MD [address] [place] [phone] INTERVENTIONAL CARDIOLOGY 12/27/17 04/23/19 documented as of this encounter
--- OUTSIDE RECORDS SUMMARY | 2024-03-20 22:48 | XMS_ITS | Encounter Summary ---
Author Organization [facility] Address [address] [place] [address]. [place], [place] [address] [place] [address] Care Team Providers Care Manager Aerospace Name Role Phone Jarret Kwong MD Primary Care Provider [phone] Go Hanna MD Unavailable Unavailable Encounter Details Date Type Department Care Team (Late st Contact Info) Description 02/16/2013 Abstract [facility] [address] [facility] [place] [address] Jarret Kwong MD [address] [place] [phone] Social History Tobacco Use Types Packs/Day [...] mammogram documented in this encounter Care Teams Manager Aerospace Relationship Specialty Start Date End Date Jarret Kwong MD [address] [place] [phone] PCP - General FAMILY PRACTICE 12/27/17 Go Hanna MD [address] [place] [phone] INTERVENTIONAL CARDIOLOGY 12/27/17 04/23/19 documented as of this encounter
--- OUTSIDE RECORDS SUMMARY | 2024-03-20 22:48 | XMS_ITS | Encounter Summary ---
Author Organization [facility] Address [address] [place] [address]. [place] [address] [place] [address] Care Team Providers Care Vehicle Body Builder Name Role Phone Unavailable Primary Care Provider Unavailabl e Encounter Details Date Type Department Care Team (Late st Contact Info) Description 12/16/2016 Orders Only [place] [address] , Generic Conversion, Social History [...] Procedure Name Priority Date/Time Associated Diagnosis Comments CATEGORY LEVEL 2 TRAUMA STAT 12/16/2016 3:44 PM CDT documented in this encounter Results * (ABNORMAL) CATEGORY LEVEL 2 TRAUMA (12/16/2016 3:44 PM CDT) ALCOHOL S/P/B ZERO 0 G/DL 12/16/2016 3:17 PM CDT [facility] SODIUM S/P/B 139 135 - 147 MMOL/L 12/16/2016 3:14 PM CDT [facility] POTASSIUM S/P/B 3.3(L) 3.5 - 5.0 MMOL/L 12/16/2016 3:14 PM CDT [facility] CHLORIDE S/P/B 109(H) 98 - 107 MMOL/L 12/16/2016 3:14 PM CDT [facility] CO2 22.0 22 - 29 MMOL/L 12/16/2016 3:14 PM CDT [facility] GLUCOSE 111(H) 70 - 109 MG/DL 12/16/2016 3:14 PM CDT [facility] BUN 18 10 - 20 MG/DL 12/16/2016 3:14 PM CDT [facility] CREATININE S/P/B 0.68 0.60 - 1.10 MG/DL 12/16/2016 3:14 PM CDT [facility] CALCIUM S/P/B 8.7(L) 8.8 - 10.0 MG/DL 12/16/2016 3:14 PM CDT [facility] EGFR NON-AFR. AMER. 84 >60 ML/MIN/1. 73 M2 12/16/2016 3:14 PM CDT [facility] EGFR AFR. AMER. 102 >60 ML/MIN/1. 73 M2 12/16/2016 3:14 PM CDT [facility] ANION GAP 8.0 MMOL/L 12/16/2016 3:14 PM [facility] OSMOLALITY (CALC) 280 MOSM/KG 017 3:14 PM CDT [facility] WBC 19.6(H) 4.0 - 10.8 x10'3/uL 12/16/2016 2:57 PM CDT [facility] RBC 3.94(L) 4.10 - 5.40 x10'6/uL 12/16/2016 2:57 PM CDT [facility] HGB 12.4 12.0 - 16.0 G/DL 12/16/2016 2:57 PM CDT [facility] HCT 35.7(L) 36.0 - 47.0 % 12/16/2016 2:57 PM CDT [facility] MCV 90.6 78.0 - 100.0 FL 12/16/2016 2:57 PM CDT [facility] MCH 31.5(H) 27.0 - 31.0 PG 12/16/2016 2:57 PM CDT [facility] MCHC 34.7 33.0 - 36.0 G/DL 12/16/2016 2:57 PM CDT [facility] RDW 12.7 11.5 - 14.5 % 12/16/2016 2:57 PM CDT [facility] PLT 290 150 - 350 x10'3/uL 12/16/2016 2:57 PM CDT [facility] MPV 10.8(H) 7.4 - 10.4 FL 12/16/2016 2:57 PM CDT [facility] ABS. NEUTROPHILS TOTAL 15.58(H) 1.60 - 8.30 x10'3/uL 12/16/2016 2:57 PM CDT [facility] ABS. LYMPHOCYTES 2.29 0.80 - 4.70 x10'3/uL 12/16/2016 2:57 PM CDT [facility] ABS. MONOCYTES 1.12 0.00 - 1.50 x10'3/uL 12/16/2016 2:57 PM CDT [facility] ABS. EOSINOPHILS 0.08 0.00 - 0.40 x10'3/uL 12/16/2016 2:57 PM CDT [facility] ABS. BASOPHILS 0.08 0.00 - 0.20 x10'3/uL 12/16/2016 2:57 PM CDT [facility] ABS. IMMATURE GRANULOCYTES 0.41(H) 0.00 - 0.03 x10'3/uL 12/16/2016 2:57 PM CDT [facility] ABS. NUCLEATED RBC'S 0.00 0.0 x10'3/uL 12/16/2016 2:57 PM CDT [facility] 12/16/2016 3:44 PM CDT 12/16/2016 2:52 PM CDT Comment:ACELLULAR BLOOD (SER UM OR PLASMA) SPECIMEN~PLASMA SPECIMEN us Generic Conversion Md [facility] Final R esult [facility] [address] [place] [address], [id number] documented in this encounter Visit Diagnoses Not on filedocumented in this encounter
--- OUTSIDE RECORDS SUMMARY | 2024-03-20 22:49 | XMS_ITS | Encounter Summary ---
Author Organization [facility] Address [address] [place] [address]. [place] [address] [place] [address] Care Team Providers Care Offender Job Retention Specialist Name Role Phone Jarret Kwong MD Primary Care Provider Go Hanna MD Unavailable Unavailable Encounter Details Date Type Department Care Team (Late st Contact Info) Description 09/12/2008 Abstract [facility] [address] [place] [address] Jarret Lynn MD [address] [email or web address] [address] Social History Tobacco Use Types [...] as of this encounter Visit Diagnoses Diagnosis Headache documented in this encounter Care Teams Offender Job Retention Specialist Relationship Specialty Start Date End Date Jarret Kwong MD [address] [place] [phone] PCP - General FAMILY PRACTICE 12/27/17 Go Hanna MD [address] [place] [phone] INTERVENTIONAL CARDIOLOGY 12/27/17 04/23/19 documented as of this encounter
--- OUTSIDE RECORDS SUMMARY | 2024-03-20 22:49 | XMS_ITS | Encounter Summary ---
Author Organization [facility] Address [address] [place] [address]. [place], [place] [phone] [place] [address] Care Team Providers Care Office Machine Service Supervisor Name Role Phone Jarret Kwong MD Primary Care Provider Go Hanna MD Unavailable Unavailable Encounter Details Date Type Department Care Team (Late st Contact Info) Description 09/07/1999 Abstract [facility] [address] [place] [address] , Generic Conversion, Social History Tobacco Use [...] on filedocumented in this encounter Care Teams Office Machine Service Supervisor Relationship Specialty Start Date End Date Jarret Kwong MD [address] [place] [phone] PCP - General FAMILY PRACTICE 12/27/17 Go Hanna MD [address] [place] [phone] INTERVENTIONAL CARDIOLOGY 12/27/17 04/23/19 documented as of this encounter
--- OUTSIDE RECORDS SUMMARY | 2024-03-20 22:49 | XMS_ITS | Encounter Summary ---
Author Organization [facility] Address [address] [place] [address]. [place] [address] [place] [address] Care Team Providers Care Database Security Expert Name Role Phone Unavailable Primary Care Provider Unavailabl e Encounter Details Date Type Department Care Team (Late st Contact Info) Description 08/01/2010 Abstract [facility] Table Tender Sludge [address] [place] [address] Social History Tobacco Use Types Packs/Day Years [...] Date /Time ECG 12 lead EKG-NonRad Routine 08/01/2010 6: 42 AM CDT ECG 12 lead EKG-NonRad Routine 08/01/2010 4: 33 PM CDT documented as of this encounter Procedures Procedure Name Priority Date/Time Associated Diagnosis Comments ECG 12-LEAD Routine 08/01/2010 4:33 PM CDT Procedure Note - 08/01/2010 4:33 PM CDTThis note is in progress. 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 [facility] Test Date: 2010-08-01 Pat Name: EMERALD KLEIN Department: -1 Room: Gender: Crane Rigger: LORI : 1940 Requested By: Mina Enriquez Order Number: Reading MD: Silas Zheng Measurements Intervals [place] Rate: 89 P: 38 CO: 222 QRS: -54 QRSD: 94 T: 92 QT: 388 QTc: 472 Interpretive Statements Sinus rhythm with 1st degree AV block Left Anterior Fascicular Block Non-specific ST-T wave changes Prolonged QT Abnormal ECG documented in this encounter Visit Diagnoses Diagnosis Atrial fibrillation ([facility]/HCC HHS/HCC) Atrial fibrillation documented in this encounter
--- OUTSIDE RECORDS SUMMARY | 2024-03-20 22:49 | XMS_ITS | Encounter Summary ---
Author Organization [facility] Address [address] [place] [address]. [place], [place] [address] [place] [address] Care Team Providers Care Hand Stamper Name Role Phone Jarret Kwong MD Primary Care Provider Go Hanna MD Unavailable Unavailable Encounter Details Date Type Department Care Team (Late st Contact Info) Description 08/16/1998 Abstract [facility] [address] [place] [address] , Generic Conversion, Social History Tobacco Use [...] on filedocumented in this encounter Care Teams Hand Stamper Relationship Specialty Start Date End Date Jarret Kwong MD [address] [place] [phone] PCP - General FAMILY PRACTICE 12/27/17 Go Hanna MD [address] [place] [phone] INTERVENTIONAL CARDIOLOGY 12/27/17 04/23/19 documented as of this encounter
--- OUTSIDE RECORDS SUMMARY | 2024-03-20 22:49 | XMS_ITS | Encounter Summary ---
Author Organization [facility] Address [address] [place] [address]. [place], [place] [address] [place] [address] Care Team Providers Care Practical Nursing Instructor Name Role Phone Jarret Kwong MD Primary Care Provider Go Hanna MD Unavailable Unavailable Encounter Details Date Type Department Care Team (Late st Contact Info) Description 11/11/2000 Abstract [facility] [address] [place] [address] , Generic Conversion, Social History Tobacco Use [...] on filedocumented in this encounter Care Teams Practical Nursing Instructor Relationship Specialty Start Date End Date Jarret Kwong MD [address] [place] [phone] PCP - General FAMILY PRACTICE 12/27/17 Go Hanna MD [address] [place] [phone] INTERVENTIONAL CARDIOLOGY 12/27/17 04/23/19 documented as of this encounter
--- OUTSIDE RECORDS SUMMARY | 2024-03-20 22:49 | XMS_ITS | Encounter Summary ---
Author Organization [facility] Address [address] [place] [address]. [place], [place] [address] [place] [address] Care Team Providers Care Radio Time Sales Supervisor Name Role Phone Jarret Kwong MD Primary Care Provider Go Hanna MD Unavailable Unavailable Encounter Details Date Type Department Care Team (Late st Contact Info) Description 11/04/2000 Abstract [facility] [address] [place] [address] , Generic Conversion, Social History Tobacco Use [...] on filedocumented in this encounter Care Teams Radio Time Sales Supervisor Relationship Specialty Start Date End Date Jarret Kwong MD [address] [place] [phone] PCP - General FAMILY PRACTICE 12/27/17 Go Hanna MD [address] [place] [phone] INTERVENTIONAL CARDIOLOGY 12/27/17 04/23/19 documented as of this encounter
--- OUTSIDE RECORDS SUMMARY | 2024-03-20 22:49 | XMS_ITS | Encounter Summary ---
Author Organization [facility] Address [address] [place] [address]. [place], [place] [address] [place] [address] Care Team Providers Care Elementary Math Tutor Name Role Phone Jarret Kwong MD Primary Care Provider Go Hanna MD Unavailable Unavailable Encounter Details Date Type Department Care Team (Late st Contact Info) Description 04/07/2002 Abstract [facility] [address] [place] [address] , Generic Conversion, Social History Tobacco Use [...] on filedocumented in this encounter Care Teams Elementary Math Tutor Relationship Specialty Start Date End Date Jarret Kwong MD [address] [place] [phone] PCP - General FAMILY PRACTICE 12/27/17 Go Hanna MD [address] [place] [phone] INTERVENTIONAL CARDIOLOGY 12/27/17 04/23/19 documented as of this encounter
--- OUTSIDE RECORDS SUMMARY | 2024-03-20 22:49 | XMS_ITS | Encounter Summary ---
Author Organization [facility] Address [address] [place] [address]. [place], [place] [address] [place] [address] Care Team Providers Care Hammer Mill Operator Name Role Phone Jarret Kwong MD Primary Care Provider Go Hanna MD Unavailable Unavailable Encounter Details Date Type Department Care Team (Late st Contact Info) Description 08/23/2012 Abstract [facility] [address] [place] [address] Cortes Hummel MD [address] [place] [address] Social History Tobacco Use Types Packs/Day Years [...] Lumbago documented in this encounter Care Teams Hammer Mill Operator Relationship Specialty Start Date End Date Jarret Kwong MD [address] [place] [phone] PCP - General FAMILY PRACTICE 12/27/17 Go Hanna MD [address] [place] [phone] INTERVENTIONAL CARDIOLOGY 12/27/17 04/23/19 documented as of this encounter
--- OUTSIDE RECORDS SUMMARY | 2024-03-20 22:49 | XMS_ITS | Encounter Summary ---
Author Organization [facility] Address [address] [place] [address]. [place], [place] [address] [place] [address] Care Team Providers Care Travel Administrator Name Role Phone Jarret Kwong MD Primary Care Provider [phone] Go Hanna MD Unavailable Unavailable Encounter Details Date Type Department Care Team (Late st Contact Info) Description 02/06/2000 Abstract [facility] [address] [place] [address] , Generic Conversion, Social History Tobacco Use [...] on filedocumented in this encounter Care Teams Travel Administrator Relationship Specialty Start Date End Date Jarret Kwong MD [address] [place] [phone] PCP - General FAMILY PRACTICE 12/27/17 Go Hanna MD [address] [place] [phone] INTERVENTIONAL CARDIOLOGY 12/27/17 04/23/19 documented as of this encounter
--- OUTSIDE RECORDS SUMMARY | 2024-03-20 22:49 | XMS_ITS | Encounter Summary ---
Author Organization [facility] Address [address] [place] [address]. [place], [place] [address] [place] [address] Care Team Providers Care Windows Consultant Name Role Phone Jarret Kwong MD Primary Care Provider Go Hanna MD Unavailable Unavailable Encounter Details Date Type Department Care Team (Late st Contact Info) Description 05/29/2005 Abstract [facility] [address] [place] [address] Jarret Kwong MD [address] [place] [phone] Social History Tobacco Use Types Packs/Day [...] on filedocumented in this encounter Care Teams Windows Consultant Relationship Specialty Start Date End Date Jarret Kwong MD [address] [place] [phone] PCP - General FAMILY PRACTICE 12/27/17 Go Hanna MD [address] [place] [phone] INTERVENTIONAL CARDIOLOGY 12/27/17 04/23/19 documented as of this encounter
--- OUTSIDE RECORDS SUMMARY | 2024-03-20 22:49 | XMS_ITS | Encounter Summary ---
Author Organization [facility] Address [address] [place] [address]. [place], [place] [address] [place] [address] Care Team Providers Care Cable Ferry Operator Name Role Phone Jarret Kwong MD Primary Care Provider Go Hanna MD Unavailable Unavailable Encounter Details Date Type Department Care Team (Late st Contact Info) Description 09/12/2003 Abstract [facility] [address] [place] [address] , Generic Conversion, Social History Tobacco Use [...] on filedocumented in this encounter Care Teams Cable Ferry Operator Relationship Specialty Start Date End Date Jarret Kwong MD [address] [place] [phone] PCP - General FAMILY PRACTICE 12/27/17 Go Hanna MD [address] [place] [phone] INTERVENTIONAL CARDIOLOGY 12/27/17 04/23/19 documented as of this encounter
--- OUTSIDE RECORDS SUMMARY | 2024-03-20 22:49 | XMS_ITS | Encounter Summary ---
Author Organization [facility] Address [address] [place] [address]. [place] [address] [place] [address] Care Team Providers Care Surveillance Camera Technician Name Role Phone Jarret Kwong MD Primary Care Provider [phone] Go Hanna MD Unavailable Unavailable Encounter Details Date Type Department Care Team (Late st Contact Info) Description 04/12/2012 Abstract [facility] [address] [facility] [place] [address] Jarret Kwong MD [address] [place] [phone] Social History Tobacco Use Types Packs/Day [...] unspecified documented in this encounter Care Teams Surveillance Camera Technician Relationship Specialty Start Date End Date Jarret Kwong MD [address] [place] [phone] PCP - General FAMILY PRACTICE 12/27/17 Go Hanna MD [address] [place] [phone] INTERVENTIONAL CARDIOLOGY 12/27/17 04/23/19 documented as of this encounter
--- OUTSIDE RECORDS SUMMARY | 2024-03-20 22:49 | XMS_ITS | Encounter Summary ---
Author Organization [facility] Address [address] [place] [address]. [place], [place] [address] [place] [address] Care Team Providers Care Manager Of Data Name Role Phone Jarret Kwong MD Primary Care Provider Go Hanna MD Unavailable Unavailable Encounter Details Date Type Department Care Team (Late st Contact Info) Description 10/26/2001 Abstract [facility] [address] [place] [address] , Generic Conversion, Social History Tobacco Use [...] on filedocumented in this encounter Care Teams Manager Of Data Relationship Specialty Start Date End Date Jarret Kwong MD [address] [place] [phone] PCP - General FAMILY PRACTICE 12/27/17 Go Hanna MD [address] [place] [phone] INTERVENTIONAL CARDIOLOGY 12/27/17 04/23/19 documented as of this encounter
--- OUTSIDE RECORDS SUMMARY | 2024-03-20 22:49 | XMS_ITS | Encounter Summary ---
Author Organization [facility] Address [address] [place] [address]. [place], [place] [address] [place] [address] Care Team Providers Care Manager Massage Department Name Role Phone Jarret Kwong MD Primary Care Provider Go Hanna MD Unavailable Unavailable Encounter Details Date Type Department Care Team (Late st Contact Info) Description 10/07/2000 Abstract [facility] [address] [address] , Generic Conversion, Social History Tobacco Use [...] filedocumented in this encounter Care Teams Manager Massage Department Relationship Specialty Start Date End Date Jarret Kwong MD [address] [place] [phone] PCP - General FAMILY PRACTICE 12/27/17 Go Hanna MD [address] [place] [phone] INTERVENTIONAL CARDIOLOGY 12/27/17 04/23/19 documented as of this encounter
--- OUTSIDE RECORDS SUMMARY | 2024-03-20 22:49 | XMS_ITS | Encounter Summary ---
Author Organization [facility] Address [address] [place] [address]. [place], [place] [address] [place] [address] Care Team Providers Care Mutual Fund Analyst Name Role Phone Jarret Kwong MD Primary Care Provider Go Hanna MD Unavailable Unavailable Encounter Details Date Type Department Care Team (Late st Contact Info) Description 04/24/1995 Abstract [facility] [address] [place] [address] , Generic Conversion, Social History Tobacco Use [...] on filedocumented in this encounter Care Teams Mutual Fund Analyst Relationship Specialty Start Date End Date Jarret Kwong MD [address] [place] [address] [phone] PCP - General FAMILY PRACTICE 12/27/17 Go Hanna MD [address] [place] [phone] INTERVENTIONAL CARDIOLOGY 12/27/17 04/23/19 documented as of this encounter
--- OUTSIDE RECORDS SUMMARY | 2024-03-20 22:49 | XMS_ITS | Encounter Summary ---
Author Organization [facility] Address [address] [place] [address]. [place], [place] [address] [place] [address] Care Team Providers Care Floorleader Name Role Phone Jarret Kwong MD Primary Care Provider Go Hanna MD Unavailable Unavailable Encounter Details Date Type Department Care Team (Late st Contact Info) Description 06/05/2002 Abstract [facility] [address] [place] [address] , Generic Conversion, Social History Tobacco Use [...] on filedocumented in this encounter Care Teams Floorleader Relationship Specialty Start Date End Date Jarret Kwong MD [address] [place] [phone] PCP - General FAMILY PRACTICE 12/27/17 Go Hanna MD [address] [place] [phone] INTERVENTIONAL CARDIOLOGY 12/27/17 04/23/19 documented as of this encounter
--- OUTSIDE RECORDS SUMMARY | 2024-03-20 22:49 | XMS_ITS | Encounter Summary ---
Author Organization [facility] Address [address] [place] [address]. [place], [place] [address] [place] [address] Care Team Providers Care Community Specialist Name Role Phone Jarret Kwong MD Primary Care Provider Go Hanna MD Unavailable Unavailable Encounter Details Date Type Department Care Team (Late st Contact Info) Description 10/22/1998 Abstract [facility] [address] [place] [address] , Generic Conversion, Social History Tobacco Use [...] on filedocumented in this encounter Care Teams Community Specialist Relationship Specialty Start Date End Date Jarret Kwong MD [address] [place] [phone] PCP - General FAMILY PRACTICE 12/27/17 Go Hanna MD [address] [place] [phone] INTERVENTIONAL CARDIOLOGY 12/27/17 04/23/19 documented as of this encounter
--- OUTSIDE RECORDS SUMMARY | 2024-03-20 22:49 | XMS_ITS | Encounter Summary ---
Author Organization [facility] Address [address] [place] [address]. [place], [place] [address] [place] [address] Care Team Providers Care Pizza Baker Name Role Phone Jarret Kwong MD Primary Care Provider Go Hanna MD Unavailable Unavailable Encounter Details Date Type Department Care Team (Late st Contact Info) Description 12/29/1998 Abstract [facility] [address] [place] [address] , Generic Conversion, Social History Tobacco Use [...] on filedocumented in this encounter Care Teams Pizza Baker Relationship Specialty Start Date End Date Jarret Kwong MD [address] [place] [phone] PCP - General FAMILY PRACTICE 12/27/17 Go Hanna MD [address] [place] [phone] INTERVENTIONAL CARDIOLOGY 12/27/17 04/23/19 documented as of this encounter
--- OUTSIDE RECORDS SUMMARY | 2024-03-20 22:49 | XMS_ITS | Encounter Summary ---
Author Organization [facility] Address [address] [place] [address]. [place] [address] [place] [address] Care Team Providers Care Cement Mason Apprentice Name Role Phone Jarret Kwong MD Primary Care Provider Go Hanna MD Unavailable Unavailable Encounter Details Date Type Department Care Team (Late st Contact Info) Description 05/31/2010 Abstract [facility] [address] [place] [address] Jarret Lynn MD [address] [place] [address] Social History Tobacco Use Types [...] as of this encounter Visit Diagnoses Diagnosis Syncope and collapse documented in this encounter Care Teams Cement Mason Apprentice Relationship Specialty Start Date End Date Jarret Kwong MD [address] [place] [phone] PCP - General FAMILY PRACTICE 12/27/17 Go Hanna MD [address] [place] [phone] INTERVENTIONAL CARDIOLOGY 12/27/17 04/23/19 documented as of this encounter
--- OUTSIDE RECORDS SUMMARY | 2024-03-20 22:49 | XMS_ITS | Encounter Summary ---
Author Organization [facility] Address [address] [place] [address]. [place], [place] [address] [place] [address] Care Team Providers Care Restaurant Host/Hostess Name Role Phone Unavailable Primary Care Provider Unavailabl e Encounter Details Date Type Department Care Team (Late st Contact Info) Description 05/12/2010 Abstract [facility] [address] [place] [address] , Zohra Chicas MD Social History Tobacco [...]
--- OUTSIDE RECORDS SUMMARY | 2024-03-20 22:49 | XMS_ITS | Encounter Summary ---
Author Organization [facility] Address [address] [place] [address]. [place], [place] [address] [place] [address] Care Team Providers Care Automobile Tester Name Role Phone Jarret Kwong MD Primary Care Provider Go Hanna MD Unavailable Unavailable Encounter Details Date Type Department Care Team (Late st Contact Info) Description 02/23/1999 Abstract [facility] [address] [place] [address] , Generic Conversion, Social History Tobacco Use [...] on filedocumented in this encounter Care Teams Automobile Tester Relationship Specialty Start Date End Date Jarret Kwong MD [address] [place] [phone] PCP - General FAMILY PRACTICE 12/27/17 Go Hanna MD [address] [place] [phone] INTERVENTIONAL CARDIOLOGY 12/27/17 04/23/19 documented as of this encounter
--- OUTSIDE RECORDS SUMMARY | 2024-03-20 22:49 | XMS_ITS | Encounter Summary ---
Author Organization [facility] Address [address] [place] [address]. [place] [address] [place] [address] Care Team Providers Care Waste Water Treatment Plant Operator Name Role Phone Jarret Kwong MD Primary Care Provider Go Hanna MD Unavailable Unavailable Encounter Details Date Type Department Care Team (Late st Contact Info) Description 01/16/2008 Abstract [facility] [address] [place] [address] Jarret Kwong MD [address] [place] [phone] Social History Tobacco Use Types Packs/Day [...] on filedocumented in this encounter Care Teams Waste Water Treatment Plant Operator Relationship Specialty Start Date End Date Jarret Kwong MD [address] [place] [phone] PCP - General FAMILY PRACTICE 12/27/17 Go Hanna MD [address] [place] [phone] INTERVENTIONAL CARDIOLOGY 12/27/17 04/23/19 documented as of this encounter
--- OUTSIDE RECORDS SUMMARY | 2024-03-20 22:49 | XMS_ITS | Encounter Summary ---
Author Organization [facility] Address [address] [place] [address]. [place] [address] [place] [address] Care Team Providers Care Regulator Tester Name Role Phone Jarret Kwong MD Primary Care Provider Go Hanna MD Unavailable Unavailable Encounter Details Date Type Department Care Team (Late st Contact Info) Description 06/22/2010 Abstract [facility] [address] [place] [address] Matt Veronica MD [address] [place] [address] Social History Tobacco Use Types Packs/Day Years Used Date Smoking Tobacco: Never Comments Unknown Sex and Gender Information Value Date Recorded Sex Assigned at Not on file Legal Sex Female 12:12 AM CDT Gender Identity Not on file Sexual Orientation Not on file documented as of this encounter Plan of Treatment Not on file documented as of this encounter Visit Diagnoses Diagnosis Atrial flutter (CMS/HCC HHS/HCC) Atrial flutter documented in this encounter Care Teams Regulator Tester Relationship Specialty Start Date End Date Jarret Kwong MD [address] [place] [phone] PCP - General FAMILY PRACTICE 12/27/17 Go Hanna MD [address] [place] [phone] INTERVENTIONAL CARDIOLOGY 12/27/17 04/23/19 documented as of this encounter
--- OUTSIDE RECORDS SUMMARY | 2024-03-20 22:49 | XMS_ITS | Encounter Summary ---
Author Organization [facility] Address [address] [place] [address]. [place], [place] [address] [place] [address] Care Team Providers Care Export Clerk Name Role Phone Jarret Kwong MD Primary Care Provider Go Hanna MD Unavailable Unavailable Encounter Details Date Type Department Care Team (Late st Contact Info) Description 03/25/1999 Abstract [facility] [address] [place] [address] , Generic Conversion, Social History Tobacco Use [...] on filedocumented in this encounter Care Teams Export Clerk Relationship Specialty Start Date End Date Jarret Kwong MD [address] [place] [phone] PCP - General FAMILY PRACTICE 12/27/17 Go Hanna MD [address] [place] [phone] INTERVENTIONAL CARDIOLOGY 12/27/17 04/23/19 documented as of this encounter
--- OUTSIDE RECORDS SUMMARY | 2024-03-20 22:49 | XMS_ITS | Encounter Summary ---
Author Organization [facility] Address [address] [place] [address]. [place], [place] [address] [place] [address] Care Team Providers Care Peanut Sheller Name Role Phone Jarret Kwong MD Primary Care Provider Go Hanna MD Unavailable Unavailable Encounter Details Date Type Department Care Team (Late st Contact Info) Description 07/27/1998 Abstract [facility] [address] [place] [address] , Generic Conversion, Social History Tobacco Use [...] on filedocumented in this encounter Care Teams Peanut Sheller Relationship Specialty Start Date End Date Jarret Kwong MD [address] [place] [phone] PCP - General FAMILY PRACTICE 12/27/17 Go Hanna MD [address] [place] [phone] INTERVENTIONAL CARDIOLOGY 12/27/17 04/23/19 documented as of this encounter
--- OUTSIDE RECORDS SUMMARY | 2024-03-20 22:49 | XMS_ITS | Encounter Summary ---
Author Organization [facility] Address [address] [place] [address]. [place], [place] [address] [place] [address] Care Team Providers Care Powertrain Calibration Engineer Name Role Phone Jarret Kwong MD Primary Care Provider Go [place] MD Unavailable Unavailable Encounter Details Date Type Department Care Team (Late st Contact Info) Description 05/11/2003 Abstract [facility] [address] [place] [address] , Generic Conversion, Social History Tobacco Use [...] on filedocumented in this encounter Care Teams Powertrain Calibration Engineer Relationship Specialty Start Date End Date Jarret Kwong MD [address] [place] [phone] PCP - General FAMILY PRACTICE 12/27/17 Go Hanna MD [address] [place] [phone] INTERVENTIONAL CARDIOLOGY 12/27/17 04/23/19 documented as of this encounter
--- OUTSIDE RECORDS SUMMARY | 2024-03-20 22:49 | XMS_ITS | Encounter Summary ---
Author Organization [facility] Address [address] [place] [address]. [place] [address] [place] [address] Care Team Providers Care Cylinder Worker Name Role Phone Jarret Kwong MD Primary Care Provider +1-2 [phone] Go [place] MD Unavailable Unavailable Encounter Details Date Type Department Care Team (Late st Contact Info) Description 09/29/2012 Abstract [facility] [address] [facility] [place] [address] Cortes Hummel MD [address] [place], [place] [address] Social History Tobacco Use Types Packs/Day Years [...] Lumbago documented in this encounter Care Teams Cylinder Worker Relationship Specialty Start Date End Date Jarret Kwong MD [address] [place] [phone] PCP - General FAMILY PRACTICE 12/27/17 Go [place] MD [address] [place] [phone] INTERVENTIONAL CARDIOLOGY 12/27/17 04/23/19 documented as of this encounter
--- OUTSIDE RECORDS SUMMARY | 2024-03-20 22:49 | XMS_ITS | Encounter Summary ---
Author Organization [facility] Address [address] [place] [address]. [place], [place] [address] [place] [address] Care Team Providers Care Wardrobe Assistant Name Role Phone Jarret Kwong MD Primary Care Provider +1-2 [phone] Go [place] MD Unavailable Unavailable Encounter Details Date Type Department Care Team (Late st Contact Info) Description 12/09/2000 Abstract [facility] CONVERSION [address] [place] [address] , Generic Conversion, Social History Tobacco Use [...] on filedocumented in this encounter Care Teams Wardrobe Assistant Relationship Specialty Start Date End Date Jarret Kwong MD [address] [place] [phone] PCP - General FAMILY PRACTICE 12/27/17 Go [place] MD [address] [place] [phone] INTERVENTIONAL CARDIOLOGY 12/27/17 04/23/19 documented as of this encounter
--- OUTSIDE RECORDS SUMMARY | 2024-03-20 22:49 | XMS_ITS | Encounter Summary ---
Author Organization [facility] Address [address] [place] [address]. [place], [place] [address] [place] [address] Care Team Providers Care Sales Representative Livestock Name Role Phone Jarret Kwong MD Primary Care Provider Go [place] MD Unavailable Unavailable Encounter Details Date Type Department Care Team (Late st Contact Info) Description 05/26/2005 Abstract [facility] 12[address] [facility] [place] [address] Jarret Kwong MD [address] [place] [phone] Social History Tobacco Use Types Packs/Day [...] on filedocumented in this encounter Care Teams Sales Representative Livestock Relationship Specialty Start Date End Date Jarret Kwong MD [address] [place] [phone] PCP - General FAMILY PRACTICE 12/27/17 Go [place] MD [address] [place] [phone] INTERVENTIONAL CARDIOLOGY 12/27/17 04/23/19 documented as of this encounter
--- OUTSIDE RECORDS SUMMARY | 2024-03-20 22:49 | XMS_ITS | Encounter Summary ---
Author Organization [facility] Address [address] [place] [address]. [place], [place] [address] [place] [address] Care Team Providers Care Target Man Name Role Phone Jarret Kwong MD Primary Care Provider Go [place] MD Unavailable Unavailable Encounter Details Date Type Department Care Team (Late st Contact Info) Description 09/30/2001 Abstract [facility] [address] [place] [address] , Generic Conversion, Social History Tobacco Use [...] on filedocumented in this encounter Care Teams Target Man Relationship Specialty Start Date End Date Jarret Kwong MD [address] [place] [phone] PCP - General FAMILY PRACTICE 12/27/17 Go [place] MD [address] [place] [phone] INTERVENTIONAL CARDIOLOGY 12/27/17 04/23/19 documented as of this encounter
--- OUTSIDE RECORDS SUMMARY | 2024-03-20 22:49 | XMS_ITS | Encounter Summary ---
Author Organization [facility] Address [address] [place] [address]. [place], [place] [address] [place] [address] Care Team Providers Care Fire Alarm Mechanic Name Role Phone Jarret Kwong MD Primary Care Provider Go [place] MD Unavailable Unavailable Encounter Details Date Type Department Care Team (Late st Contact Info) Description 02/13/1997 Abstract [facility] CON[facility] [address] [place] [address] , Generic Conversion, Social History Tobacco Use [...] on filedocumented in this encounter Care Teams Fire Alarm Mechanic Relationship Specialty Start Date End Date Jarret Kwong MD [address] [place] [phone] PCP - General FAMILY PRACTICE 12/27/17 Go [place] MD [address] [place] [phone] INTERVENTIONAL CARDIOLOGY 12/27/17 04/23/19 documented as of this encounter
--- OUTSIDE RECORDS SUMMARY | 2024-03-20 22:49 | XMS_ITS | Encounter Summary ---
Author Organization [facility] Address [address] [place] [address]. [place], [place] [address] [place] [address] Care Team Providers Care Chemist Internship Name Role Phone Jarret Kwong MD Primary Care Provider +1-2 [phone] Go [place] MD Unavailable Unavailable Encounter Details Date Type Department Care Team (Late st Contact Info) Description 02/07/2008 Abstract [facility] [address] [place] [address] Jarret Kwong MD [address] [place] [phone] Social History Tobacco Use Types Packs/Day [...] on filedocumented in this encounter Care Teams Chemist Internship Relationship Specialty Start Date End Date Jarret Kwong MD [address] [place] [phone] PCP - General FAMILY PRACTICE 12/27/17 Go [place] MD [address] [place] [phone] INTERVENTIONAL CARDIOLOGY 12/27/17 04/23/19 documented as of this encounter
--- OUTSIDE RECORDS SUMMARY | 2024-03-20 22:49 | XMS_ITS | Encounter Summary ---
Author Organization [facility] Address [address] [place] [address]. [place], [place] [address] [place] [address] Care Team Providers Care Leadership Program Associate Name Role Phone Jarret Kwong MD Primary Care Provider +1-2 [phone] Go [place] MD Unavailable Unavailable Encounter Details Date Type Department Care Team (Late st Contact Info) Description 05/17/1995 Abstract [facility] CONVERSION [address] [place] [address] , Generic Conversion, Social History Tobacco Use [...] on filedocumented in this encounter Care Teams Leadership Program Associate Relationship Specialty Start Date End Date Jarret Kwong MD [address] [place] [address] [phone] PCP - General FAMILY PRACTICE 12/27/17 Go [place] MD [address] [place] [phone] INTERVENTIONAL CARDIOLOGY 12/27/17 04/23/19 documented as of this encounter
--- OUTSIDE RECORDS SUMMARY | 2024-03-20 22:49 | XMS_ITS | Encounter Summary ---
Author Organization [facility] Address [address] [place] [address]. [place] [address] [place] [address] Care Team Providers Care Bark Peeler Name Role Phone Jarret Kwong MD Primary Care Provider Go [place] MD Unavailable Unavailable Encounter Details Date Type Department Care Team (Late st Contact Info) Description 02/29/2004 Abstract [facility] CONVERSION [address] [place] [address] Jarret Kwong MD [address] [place] [phone] Social History Tobacco Use Types Packs/Day [...] on filedocumented in this encounter Care Teams Bark Peeler Relationship Specialty Start Date End Date Jarret Kwong MD [address] [place] [phone] PCP - General FAMILY PRACTICE 12/27/17 Go [place] MD [address] [place] [phone] INTERVENTIONAL CARDIOLOGY 12/27/17 04/23/19 documented as of this encounter
--- OUTSIDE RECORDS SUMMARY | 2024-03-20 22:49 | XMS_ITS | Encounter Summary ---
Author Organization [facility] Address [address] [place] [address]. [place] [address] [place] [address] Care Team Providers Care Manager Graphic Name Role Phone Jarret Kwong MD Primary Care Provider +1-2 [phone] Go [place] MD Unavailable Unavailable Encounter Details Date Type Department Care Team (Late st Contact Info) Description 05/20/2012 Abstract [facility] 1215 [place] [address] Jenny Moran MD [address] [address] [place], [place] [address] Social History Tobacco Use Types Packs/Day Years [...] this encounter Visit Diagnoses Diagnosis Pain in soft tissues of limb Pain in limb documented in this encounter Care Teams Manager Graphic Relationship Specialty Start Date End Date Jarret Kwong MD [address] [place] [phone] PCP - General FAMILY PRACTICE 12/27/17 Go [place] MD [address] [place] [phone] INTERVENTIONAL CARDIOLOGY 12/27/17 04/23/19 documented as of this encounter
--- OUTSIDE RECORDS SUMMARY | 2024-03-20 22:49 | XMS_ITS | Encounter Summary ---
Author Organization [facility] Address [address] [place] [address]. [place] [address] [place] [address] Care Team Providers Care Retail Pharmacist Name Role Phone Jarret Kwong MD Primary Care Provider +1-2 [phone] Go [place] MD Unavailable Unavailable Encounter Details Date Type Department Care Team (Late st Contact Info) Description 05/10/2010 Abstract [facility] [address] [place] [address] Matt Veronica MD [address] [place] [address] Social History Tobacco Use Types [...] of this encounter Visit Diagnoses Diagnosis Atrial fibrillation (CMS/HCC HHS/HCC) Atrial fibrillation documented in this encounter Care Teams Retail Pharmacist Relationship Specialty Start Date End Date Jarret Kwong MD [address] [place] [phone] PCP - General FAMILY PRACTICE 12/27/17 Go [place] MD [address] [place] [phone] INTERVENTIONAL CARDIOLOGY 12/27/17 04/23/19 documented as of this encounter
--- OUTSIDE RECORDS SUMMARY | 2024-03-20 22:49 | XMS_ITS | Encounter Summary ---
Author Organization [facility] Address [address] [place] [address]. [place] [address] [place] [address] Care Team Providers Care Tablet Making Machine Operator Name Role Phone Jarret Kwong MD Primary Care Provider Go [place] MD Unavailable Unavailable Encounter Details Date Type Department Care Team (Late st Contact Info) Description 05/19/2010 Abstract [facility] 1215 [facility] [place] [address] Matt Veronica MD [address] [place] [address] Social History Tobacco Use Types [...] as of this encounter Visit Diagnoses Diagnosis Congestive heart failure (CMS/HCC HHS/[facility]) Congestive heart failure, unspecified documented in this encounter Care Teams Tablet Making Machine Operator Relationship Specialty Start Date End Date Jarret Kwong MD [address] [place] [phone] PCP - General FAMILY PRACTICE 12/27/17 Go [place] MD [address] [place] [phone] INTERVENTIONAL CARDIOLOGY 12/27/17 04/23/19 documented as of this encounter
--- OUTSIDE RECORDS SUMMARY | 2024-03-20 22:49 | XMS_ITS | Encounter Summary ---
Author Organization [facility] Address [address] [place] [address]. [place] [address] [place] [address] Care Team Providers Care Product Trainer Name Role Phone Jarret Kwong MD Primary Care Provider +1-2 [phone] Go [place] MD Unavailable Unavailable Encounter Details Date Type Department Care Team (Late st Contact Info) Description 05/10/2010 Abstract [facility] [address] [place], [place] [address] Jarret Kwong MD [address] [place] [phone] Ron Marin MD [address] [place] [phone] Social History Tobacco Use Types Packs/Day Years [...] fibrillation documented in this encounter Care Teams Product Trainer Relationship Specialty Start Date End Date Jarret Kwong MD [address] [place] [phone] PCP - General FAMILY PRACTICE 12/27/17 Go [place] MD [address] [place] [phone] INTERVENTIONAL CARDIOLOGY 12/27/17 04/23/19 documented as of this encounter
--- OUTSIDE RECORDS SUMMARY | 2024-03-20 22:49 | XMS_ITS | Encounter Summary ---
Author Organization [facility] Address [address] [place] [address]. [place], [place] [address] [place] [address] Care Team Providers Care Fur Cutting Machine Operator Name Role Phone Jarret Kwong MD Primary Care Provider Go [place] MD Unavailable Unavailable Encounter Details Date Type Department Care Team (Late st Contact Info) Description 07/24/2002 Abstract [facility]VERSION [address] [place] [address] , Generic Conversion, Social History Tobacco Use [...] on filedocumented in this encounter Care Teams Fur Cutting Machine Operator Relationship Specialty Start Date End Date Jarret Kwong MD [address] [place] [phone] PCP - General FAMILY PRACTICE 12/27/17 Go Hanna MD [address] [place] [phone] INTERVENTIONAL CARDIOLOGY 12/27/17 04/23/19 documented as of this encounter
--- OUTSIDE RECORDS SUMMARY | 2024-03-20 22:49 | XMS_ITS | Encounter Summary ---
Author Organization [facility] Address [address] [place] [address]. [place], [place] [address] [place] [address] Care Team Providers Care Automatic Spreader Operator Name Role Phone Unavailable Primary Care Provider Unavailabl e Encounter Details Date Type Department Care Team (Late st Contact Info) Description 05/12/2010 [facility] [address] [place] [address] , Zohra Chicas MD Social [...]
--- OUTSIDE RECORDS SUMMARY | 2024-03-20 22:49 | XMS_ITS | Encounter Summary ---
Author Organization [facility] Address [address] [place] [address]. [place] [address] [place] [address] Care Team Providers Care Vinyl Flooring Installer Name Role Phone Unavailable Primary Care Provider Unavailabl e Encounter Details Date Type Department Care Team (Late st Contact Info) Description 09/27/[address] [facility] [address] [place] [address] Pranav Navarro MD [address] [facility] [address] [place] [address] Social History Tobacco Use Types Packs/Day Years [...]
--- OUTSIDE RECORDS SUMMARY | 2024-03-20 22:49 | XMS_ITS | Encounter Summary ---
Author Organization [facility] Address [address] [place] [address]. [place], [place] [address] [place] [address] Care Team Providers Care Physician Vice President Name Role Phone Jarret Kwong MD Primary Care Provider Go [place] MD Unavailable Unavailable Encounter Details Date Type Department Care Team (Late st Contact Info) Description 09/24/2008 Abstract [facility] 1215 [facility] [place] [address] Jarret Kwong MD [address] [place] [phone] Social History Tobacco Use Types Packs/Day [...] of this encounter Visit Diagnoses Diagnosis Other depressive disorder documented in this encounter Care Teams Physician Vice President Relationship Specialty Start Date End Date Jarret Kwong MD [address] [place] [phone] PCP - General FAMILY PRACTICE 12/27/17 Go Hanna MD [address] [place] [phone] INTERVENTIONAL CARDIOLOGY 12/27/17 04/23/19 documented as of this encounter
--- OUTSIDE RECORDS SUMMARY | 2024-03-20 22:49 | XMS_ITS | Encounter Summary ---
Author Organization [facility] Address [address] [place] [address]. [place] [address] [place] [address] Care Team Providers Care Data Compiler Name Role Phone Unavailable Primary Care Provider Unavailabl e Encounter Details Date Type Department Care Team (Late st Contact Info) Description 09/20/2008 Abstract [facility] [address] [place] [address] , Zohra Chicas MD Social History Tobacco [...] Sign Reading Time Taken Comments Blood Pressure 133/80 09/20/2008 10:55 AM CDT Pulse 100 09/20/2008 10:55 AM CDT Temperature - - Respiratory Rate 12 09/20/2008 10:5 5 AM CDT Oxygen Saturation - - Inhaled Oxygen Concentration - - Weight 65.2 kg (143 lb 11.2 oz) 009 10:55 AM CDT Height 157.5 cm (5' 2 ) 09/20/2008 10:5 5 AM CDT Body Mass Index 26.28 09/20/2008 10:55 AM CDT documented in this encounter Plan of Treatment Not on file documented as of this encounter Procedures Procedure Name Priority Date/Time Associated Diagnosis Comments EXTERNAL EJECTION FRACTION Routine 09/20/2008 12:00 AM CDT EXTERNAL EJECTION FRACTION Routine 09/20/2008 12:00 AM CDT documented in this encounter Results * EXTERNAL EJECTION FRACTION (09/20/2008 12:00 AM CDT) EJECTION FRACTION 65 to [facility] Comment:1. Borderline dilate d aortic root.2. The left ventricular chamber size is decreased.3. LV ejection fraction is estimated to be 65 to 70%.4. Ventricular wall thickness is moderately increased.5. Mild mitral valve prolapse. Anatomical Region Laterality Modality Other 09/20/2008 09/20/2008 Narrative 09/20/2008 12:00 AM CDT Transthoracic Echocardiogram, Allen Rocha MD us Generic Conversion Md DOUGLASS OTHER Final R esult * EXTERNAL EJECTION FRACTION (09/20/2008 12:00 AM CDT) EJECTION FRACTION 60 to [facility] Comment:1. LV ejection fract ion is estimated to be 60 to 65%.2. Negative stress echo for ischemia. Anatomical Region Laterality Modality Other 09/20/2008 09/20/2008 Narrative 09/20/2008 12:00 AM CDT Stress Echo, Allen Rocha MD us Generic Conversion Md DOUGLASS OTHER Final R esult documented in this encounter Visit Diagnoses Not on filedocumented in this encounter
--- OUTSIDE RECORDS SUMMARY | 2024-03-20 22:49 | XMS_ITS | Encounter Summary ---
Author Organization [facility] Address [address] [place] [address]. [place], [place] [address] [place] [address] Care Team Providers Care Pharmacy Tech Name Role Phone Jarret Kwong MD Primary Care Provider Go [place] MD Unavailable Unavailable Encounter Details Date Type Department Care Team (Late st Contact Info) Description 10/30/1994 Abstract [facility] CON[facility] [address] [place] [address] , Generic Conversion, Social History Tobacco Use [...] on filedocumented in this encounter Care Teams Pharmacy Tech Relationship Specialty Start Date End Date Jarret Kwong MD [address] [place] [phone] PCP - General FAMILY PRACTICE 12/27/17 Go [place] MD [address] [place] [phone] INTERVENTIONAL CARDIOLOGY 12/27/17 04/23/19 documented as of this encounter
--- OUTSIDE RECORDS SUMMARY | 2024-03-20 22:49 | XMS_ITS | Encounter Summary ---
Author Organization [facility] Address [address] [place] [address]. [place], [place] [address] [place] [address] Care Team Providers Care Undercoater Name Role Phone Jarret Kwong MD Primary Care Provider Go [place] MD Unavailable Unavailable Encounter Details Date Type Department Care Team (Late st Contact Info) Description 09/28/2001 Abstract [facility] [address] [place] [address] , Generic Conversion, Social History Tobacco Use [...] on filedocumented in this encounter Care Teams Undercoater Relationship Specialty Start Date End Date Jarret Kwong MD [address] [place] [phone] PCP - General FAMILY PRACTICE 12/27/17 Go [place] MD [address] [place] [phone] INTERVENTIONAL CARDIOLOGY 12/27/17 04/23/19 documented as of this encounter
--- OUTSIDE RECORDS SUMMARY | 2024-03-20 22:49 | XMS_ITS | Encounter Summary ---
Author Organization [facility] Address [address] [place] [address]. [place], [place] [address] [place] [address] Care Team Providers Care Health And Safety Representative Name Role Phone Jarret Kwong MD Primary Care Provider Go [place] MD Unavailable Unavailable Encounter Details Date Type Department Care Team (Late st Contact Info) Description 03/22/1999 Abstract [facility] [address] [place] [address] , Generic Conversion, Social History Tobacco Use [...] on filedocumented in this encounter Care Teams Health And Safety Representative Relationship Specialty Start Date End Date Jarret Kwong MD [address] [place] [phone] PCP - General FAMILY PRACTICE 12/27/17 Go [place] MD [address] [place] [phone] INTERVENTIONAL CARDIOLOGY 12/27/17 04/23/19 documented as of this encounter
--- OUTSIDE RECORDS SUMMARY | 2024-03-20 22:49 | XMS_ITS | Encounter Summary ---
Author Organization [facility] Address [address] [place] [address]. [place], [place] [address] [place] [address] Care Team Providers Care Watch Crystal Molder Name Role Phone Jarret Kwong MD Primary Care Provider Go [place] MD Unavailable Unavailable Encounter Details Date Type Department Care Team (Late st Contact Info) Description 09/04/1999 Abstract [facility] CON[facility] [address] [place] [address] , Generic Conversion, Social History Tobacco Use [...] on filedocumented in this encounter Care Teams Watch Crystal Molder Relationship Specialty Start Date End Date Jarret Kwong MD [address] [place] [phone] PCP - General FAMILY PRACTICE 12/27/17 Go [place] MD [address] [place] [phone] INTERVENTIONAL CARDIOLOGY 12/27/17 04/23/19 documented as of this encounter
--- OUTSIDE RECORDS SUMMARY | 2024-03-20 22:49 | XMS_ITS | Encounter Summary ---
Author Organization [facility] Address [address] [place] [address]. [place] [address] [place] [address] Care Team Providers Care Regulation Supervisor Name Role Phone Unavailable Primary Care Provider Unavailabl e Encounter Details Date Type Department Care Team (Late st Contact Info) Description 09/12/2003 Abstract [facility] [address] [place] [address] Pranav Navarro MD [address] [facility] [address] [place] [address] Social History Tobacco Use Types Packs/Day Years [...]
--- OUTSIDE RECORDS SUMMARY | 2024-03-20 22:49 | XMS_ITS | Encounter Summary ---
Author Organization [facility] Address [address] [place] [address]. [place], [place] [address] [place] [address] Care Team Providers Care Photovoltaic Power Systems Engineer Name Role Phone Jarret Kwong MD Primary Care Provider Go [place] MD Unavailable Unavailable Encounter Details Date Type Department Care Team (Late st Contact Info) Description 07/26/1998 Abstract [facility] [address] [place] [address] , Generic Conversion, Social History Tobacco Use [...] on filedocumented in this encounter Care Teams Photovoltaic Power Systems Engineer Relationship Specialty Start Date End Date Jarret Kwong MD [address] [place] [phone] PCP - General FAMILY PRACTICE 12/27/17 Go [place] MD [address] [place] [phone] INTERVENTIONAL CARDIOLOGY 12/27/17 04/23/19 documented as of this encounter
--- OUTSIDE RECORDS SUMMARY | 2024-03-20 22:49 | XMS_ITS | Encounter Summary ---
Author Organization [facility] Address [address] [place] [address]. [place] [address] [place] [address] Care Team Providers Care Biopsychologist Name Role Phone Jarret Kwong MD Primary Care Provider Go [place] MD Unavailable Unavailable Encounter Details Date Type Department Care Team (Late st Contact Info) Description 09/21/2008 Abstract [facility] [address] [facility] [place] [address] Fernando Velez MD [address] [place] [phone] Social History Tobacco Use Types Packs/Day Years [...] disorder documented in this encounter Care Teams Biopsychologist Relationship Specialty Start Date End Date Jarret Kwong MD [address] [place] [phone] PCP - General FAMILY PRACTICE 12/27/17 Go [place] MD [address] [place] [phone] INTERVENTIONAL CARDIOLOGY 12/27/17 04/23/19 documented as of this encounter
--- OUTSIDE RECORDS SUMMARY | 2024-03-20 22:49 | XMS_ITS | Encounter Summary ---
Author Organization [facility] Address [address] [place] [address]. [place], [place] [address] [place] [address] Care Team Providers Care Jet Engine Mechanic Name Role Phone Jarret Kwong MD Primary Care Provider [phone] Go [place] MD Unavailable Unavailable Encounter Details Date Type Department Care Team (Late st Contact Info) Description 09/08/2002 Abstract [facility] [address] [place] [address] , Generic Conversion, Social History Tobacco Use [...] on filedocumented in this encounter Care Teams Jet Engine Mechanic Relationship Specialty Start Date End Date Jarret Kwong MD [address] [place] [phone] PCP - General FAMILY PRACTICE 12/27/17 Go [place] MD [address] [place] [phone] INTERVENTIONAL CARDIOLOGY 12/27/17 04/23/19 documented as of this encounter
--- OUTSIDE RECORDS SUMMARY | 2024-03-20 22:49 | XMS_ITS | Encounter Summary ---
Author Organization [facility] Address [address] [place] [address]. [place], [place] [address] [place] [address] Care Team Providers Care General Service Technician Name Role Phone Jarret Kwong MD Primary Care Provider Go [place] MD Unavailable Unavailable Encounter Details Date Type Department Care Team (Late st Contact Info) Description 12/16/2001 Abstract [facility] [address] [place] [address] , Generic Conversion, Social History Tobacco Use [...] on filedocumented in this encounter Care Teams General Service Technician Relationship Specialty Start Date End Date Jarret Kwong MD [address] [place] [phone] PCP - General FAMILY PRACTICE 12/27/17 Go [place] MD [address] [place] [phone] INTERVENTIONAL CARDIOLOGY 12/27/17 04/23/19 documented as of this encounter
--- OUTSIDE RECORDS SUMMARY | 2024-03-20 23:38 | XMS_ITS | Clinical Summary ---
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, SUBS FOR FX W ROUTN HEAL Active 2022-0416 00:00: 00 ADHESIVE CAPSULITIS OF RIGHT SHOULDER Active 2022-0416 00:00: 00 FRACTURE OF OTH PARTS OF PELVIS, SUBS FOR FX W ROUTN HEAL Active 2022-0416 00:00: 00 CHRONIC ATRIAL FIBRILLATION , UNSPECIFIED Active 2022-04 016 00:00: 00 POLYNEUROPAT HY, UNSPECIFIED Active 2022-04 0-16 00:00: 00 ABDOMINAL AORTIC ANEURYSM, WITHOUT RUPTURE, UNSPECIFIED Active 2022-04 0-16 00:00: 00 PERSONAL HISTORY OF MALIGNANT NEOPLASM OF LARGE INTESTINE Active 2022-04 0-16 00:00: 00 PRESENCE OF ARTIFICIAL KNEE JOINT, BILATERAL Active 2022-04 0-16 00:00: 00 DEPRESSION, UNSPECIFIED Active 2022-04 0-16 00:00: 00 ACQUIRED ABSENCE OF OTHER SPECIFIED PARTS OF DIGESTIVE TRACT Active 2022-04 0-16 00:00: 00 GASTRO-ESOPH AGEAL REFLUX DISEASE WITHOUT ESOPHAGITIS Active 2022-04 0-16 00:00: 00 CONSTIPATION , UNSPECIFIED Active 2022-04 0-16 00:00: 00 RHEUMATIC MITRAL VALVE DISEASE, UNSPECIFIED Active 2022-04 0-16 00:00: 00 UNSPECIFIED OSTEOARTHRIT IS, UNSPECIFIED SITE Active 2022-04 00:00: 00 DISSECTION OF VERTEBRAL ARTERY Active 2022-04 00:00: 00 STRESS INCONTINENCE (FEMALE) (MALE) Active 2022-04 00:00: 00 ANXIETY DISORDER, UNSPECIFIED Active 2022-04 00:00: 00 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 Ordering Clinician Indication Dosage Frequency Signature (SIG) Comments Components acetaminoph en 325 mg tablet 2022-04 00:00: 00 Yes [id number] PAIN 2 tablet EVERY 6 HOURS 2 tablet EVERY 6 HOURS (route: oral) Med Classific ation: Analgesic , Anti-infl ammatory or Antipyret ic amiodarone 200 mg tablet 2022-04 00:00: 00 Yes [id number] AFIB 1 tablet EVERY 72 HOURS 1 tablet EVERY 72 HOURS (route: oral) Med Classific ation: Cardiovas cular Therapy Agents aspirin 81 mg tablet,yaneth yed release 2022-04 00:00: 00 Yes [id number] HEART HEALTH 1 tablet ONCE DAILY 1 tablet ONCE DAILY (route: oral) Med Classific ation: Hematolog ical Agents Calcium 600 with Vitamin D3 600 mg-12.5 mcg (500 unit) capsule 2022-04 00:00: 00 Yes [id number] SUPPLEMENT 1 capsule ONCE DAILY 1 capsule ONCE DAILY (route: oral) Med Classific ation: Electroly te Balance-N utritiona l Products diclofenac 1 % topical gel 2022-04 00:00: 00 Yes [id number] PAIN Per instruc tions TWICE DAILY Per instructio ns TWICE DAILY (route: topical) Med Classific ation: Dermatolo gical docusate sodium 100 mg capsule 2022-04 00:00: 00 Yes [id number] STOOL SOFTNER 1 capsule ONCE DAILY 1 capsule ONCE DAILY (route: oral) Med Classific ation: Gastroint estinal Therapy Agents duloxetine 60 mg capsule,del ayed release 2022-04 00:00: 00 Yes [id number] DEPRESSION 1 capsule ONCE DAILY 1 capsule ONCE DAILY (route: oral) Med Classific ation: Central Nervous System Agents escitalopra m 20 mg tablet 2022-04 00:00: 00 Yes [id number] DEPRESSION 1 tablet ONCE DAILY 1 tablet ONCE DAILY (route: oral) Med Classific ation: Central Nervous System Agents ferrous sulfate 325 mg (65 mg iron) tablet 2022-04 00:00: 00 Yes [id number] ANEMIA 1 tablet TWICE DAILY 1 tablet TWICE DAILY (route: oral) Alternate Route: NOSTRIL - BOTH. Med Classific ation: Electroly te Balance-N utritiona l Products gabapentin 100 mg capsule 2022-04 00:00: 00 Yes [id number] PAIN 1 capsule 3 TIMES DAILY 1 capsule 3 TIMES DAILY (route: oral) Med Classific ation: Central Nervous System Agents lorazepam 0.5 mg tablet 2022-04 00:00: 00 Yes [id number] ANXIETY 1 tablet EVERY 12 HOURS 1 tablet EVERY 12 HOURS (route: oral) Med Classific ation: Central Nervous System Agents magnesium 400 mg (as magnesium oxide) tablet 2022-04 00:00: 00 Yes [id number] HYPOMAGNESI UM 1 tablet TWICE DAILY 1 tablet TWICE DAILY (route: oral) Med Classific ation: Electroly te Balance-N utritiona l Products melatonin 3 mg tablet 2022-04 00:00: 00 Yes [id number] INSOMNIA 1 tablet AT BEDTIME 1 tablet AT BEDTIME (route: oral) Med Classific ation: Central Nervous System Agents metoprolol succinate ER 25 mg tablet,exte nded release 24 hr 2022-04 00:00: 00 Yes [id number] HTN 1 tablet ONCE DAILY 1 tablet ONCE DAILY (route: oral) Med Classific ation: Cardiovas cular Therapy Agents Myrbetriq 25 mg tablet,exte nded release 2022-04 00:00: 00 Yes [id number] OVERACTIVE BLADDER 1 tablet ONCE DAILY 1 tablet ONCE DAILY (route: oral) Med Classific ation: Genitouri nary Therapy omeprazole 20 mg capsule,del ayed release 2022-04 00:00: 00 Yes [id number] GERD 1 capsule ONCE DAILY 1 capsule ONCE DAILY (route: oral) Med Classific ation: Gastroint estinal Therapy Agents polyethylen e glycol 3350 17 gram/dose oral powder 2022-04 00:00: 00 Yes [id number] CONSTIPATIO N 17 g ONCE DAILY 17 g ONCE DAILY (route: oral) Med Classific ation: Gastroint estinal Therapy Agents tramadol 50 mg tablet 2022-04 00:00: 00 Yes [id number] PAIN 1 tablet EVERY 6 HOURS 1 tablet EVERY 6 HOURS (route: oral) Med Classific ation: Analgesic , Anti-infl ammatory or Antipyret ic Immunizations Ordered Immunization Name Filled Immunization Name Date Status Comments Refusal Reason INFLUENZA, TIV (INACTIVATED) 2022-12-08 00:00:00 COVID-19 DOSE 3 (BOOSTER), MRNA 2021-03-25 00:00:00 COVID-19 DOSE 2, MRNA 2020-05-31 00:00:00 COVID-19 MONOVALENT, MRNA 2020-05-10 00:00:00 Vital Signs Vital Name Observation Time Observation Value Commen ts Temperature 2023-03-13 10:51:00.000 97.3 [degF] Temperature 2023-03-05 15:39:00.000 97.9 [degF] Temperature 2023-02-18 10:15:00.000 97.8 [degF] Temperature 2023-02-10 09:59:00.000 97.5 [degF] Temperature 2023-02-04 10:21:00.000 97.8 [degF] Temperature 2023-02-01 10:22:00.000 97.8 [degF] Temperature 2023-01-28 10:22:00.000 97.9 [degF] Temperature 2023-01-26 09:09:00.000 97.4 [degF] Temperature 2023-01-21 13:10:00.000 97.2 [degF] Temperature 2023-01-19 10:40:00.000 98.1 [degF] Temperature 2023-01-18 10:12:00.000 98.2 [degF] BMI (%) 2023-01-18 10:12:00.000 23 kg/m2 Height 2023-01-18 10:12:00.000 62 [in_us] Pulse 2023-03-13 10:51:00.000 70 /min Pulse 2023-03-05 15:39:00.000 72 /min Pulse 2023-02-18 10:15:00.000 96 /min Pulse 2023-02-10 09:59:00.000 74 /min Pulse 2023-02-04 10:21:00.000 64 /min Pulse 2023-02-01 10:22:00.000 72 /min Pulse 2023-01-28 10:22:00.000 66 /min Pulse 2023-01-26 09:09:00.000 76 /min Pulse 2023-01-21 13:10:00.000 76 /min Pulse 2023-01-19 10:40:00.000 70 /min Pulse 2023-01-18 10:12:00.000 72 /min O2 Saturation (%) 2023-03-13 10:51:00.000 99 % O2 Saturation (%) 2023-03-05 15:39:00.000 98 % O2 Saturation (%) 2023-02-18 10:15:00.000 99 % O2 Saturation (%) 2023-02-10 09:59:00.000 98 % O2 Saturation (%) 2023-02-04 10:21:00.000 95 % O2 Saturation (%) 2023-02-01 10:22:00.000 98 % O2 Saturation (%) 2023-01-28 10:22:00.000 99 % O2 Saturation (%) 2023-01-26 09:09:00.000 97 % O2 Saturation (%) 2023-01-21 13:10:00.000 100 % O2 Saturation (%) 2023-01-19 10:40:00.000 99 % O2 Saturation (%) 2023-01-18 10:12:00.000 99 % Respirations 2023-03-13 10:51:00.000 18 /min Respirations 2023-03-05 15:39:00.000 18 /min Respirations 2023-02-18 10:15:00.000 18 /min Respirations 2023-02-10 09:59:00.000 18 /min Respirations 2023-02-04 10:21:00.000 18 /min Respirations 2023-02-01 10:22:00.000 18 /min Respirations 2023-01-28 10:22:00.000 18 /min Respirations 2023-01-26 09:09:00.000 18 /min Respirations 2023-01-21 13:10:00.000 18 /min Respirations 2023-01-19 10:40:00.000 18 /min Respirations 2023-01-18 10:12:00.000 18 /min Weight (lbs) 2023-01-18 10:12:00.000 127 [lb_av] Systolic Blood Pressure 2023-03-13 10:51:00.000 118 mm [Hg] Systolic Blood Pressure 2023-03-05 15:39:00.000 116 mm [Hg] Systolic Blood Pressure 2023-02-18 10:15:00.000 130 mm [Hg] Systolic Blood Pressure 2023-02-10 09:59:00.000 118 mm [Hg] Systolic Blood Pressure 2023-02-04 10:21:00.000 116 mm [Hg] Systolic Blood Pressure 2023-02-01 10:22:00.000 120 mm [Hg] Systolic Blood Pressure 2023-01-28 10:22:00.000 116 mm [Hg] Systolic Blood Pressure 2023-01-26 09:09:00.000 124 mm [Hg] Systolic Blood Pressure 2023-01-21 13:10:00.000 132 mm [Hg] Systolic Blood Pressure 2023-01-19 10:40:00.000 118 mm [Hg] Systolic Blood Pressure 2023-01-18 10:12:00.000 128 mm [Hg] Diastolic Blood Pressure 2023-03-13 10:51:00.000 68 mm [Hg] Diastolic Blood Pressure 2023-03-05 15:39:00.000 66 mm [Hg] Diastolic Blood Pressure 2023-02-18 10:15:00.000 70 mm [Hg] Diastolic Blood Pressure 2023-02-10 09:59:00.000 76 mm [Hg] Diastolic Blood Pressure 2023-02-04 10:21:00.000 64 mm [Hg] Diastolic Blood Pressure 2023-02-01 10:22:00.000 70 mm [Hg] Diastolic Blood Pressure 2023-01-28 10:22:00.000 68 mm [Hg] Diastolic Blood Pressure 2023-01-26 09:09:00.000 70 mm [Hg] Diastolic Blood Pressure 2023-01-21 13:10:00.000 76 mm [Hg] Diastolic Blood Pressure 2023-01-19 10:40:00.000 66 mm [Hg] Diastolic Blood Pressure 2023-01-18 10:12:00.000 70 mm [Hg] Plan of Treatment Planned Activity Planned Date Details Comments Future Scheduled Test FOR EACH O RDERED, IN-HOME OR TELEHEALTH VISIT, THE PHYSICAL THERAPIST WILL EVALUATE AND TREAT PATIENTS FUNCTIONAL DEFICITS. PHYSICAL THERAPIST WILL ASSESS AND INSTRUCT ON PAIN, FALL PREVENTION AND SAFETY, MENTAL/COGNITIVE/PSYCHOSOCIAL STATUS, MED MANAGEMENT, SKIN INTEGRITY, PRESSURE ULCER PREVENTION, AND INFECTION CONTROL/PREVENTION RELATED TO THE PRIMARY MEDICAL DIAGNOSIS AND ACTIVE CO-MORBIDITIES THAT MAY IMPACT THE PATIENTS OUTCOME. [code = FOR EACH ORDERED, IN-HOME OR TELEHEALTH VISIT, THE PHYSICAL THERAPIST WILL EVALUATE AND TREAT PATIENTS FUNCTIONAL DEFICITS. PHYSICAL THERAPIST WILL ASSESS AND INSTRUCT ON PAIN, FALL PREVENTION AND SAFETY, MENTAL/COGNITIVE/PSYCHOSOCIAL STATUS, MED MANAGEMENT, SKIN INTEGRITY, PRESSURE ULCER PREVENTION, AND INFECTION CONTROL/PREVENTION RELATED TO THE PRIMARY MEDICAL DIAGNOSIS AND ACTIVE CO-MORBIDITIES THAT MAY IMPACT THE PATIENTS OUTCOME.] Future Scheduled Test THE CER TIFYING PHYSICIAN, ASSOCIATED PHYSICIAN, NPP OR PA WITHIN THE SAME GROUP MAY APPROVE AND SIGN THE ORDER (ON ANY PAGE) ATTESTING THAT THE COMPREHENSIVE OUTCOME ASSESSMENTS, EVALUATIONS, AND HOME HEALTH CERTIFICATION PLANS SUPPORT HOMEBOUND STATUS. HOME HEALTH WEB-PORTAL DOCUMENTATION ACCESSED BY THE PHYSICIAN MUST BE INCORPORATED INTO THE MEDICAL RECORD TO CORROBORATE THE PHYSICIAN, NPP, OR PAS F2F ENCOUNTER TO SUPPORT ELIGIBILITY FOR HOME HEALTH SERVICES. [code = THE CERTIFYING PHYSICIAN, ASSOCIATED PHYSICIAN, NPP OR PA WITHIN THE SAME GROUP MAY APPROVE AND SIGN THE ORDER (ON ANY PAGE) ATTESTING THAT THE COMPREHENSIVE OUTCOME ASSESSMENTS, EVALUATIONS, AND HOME HEALTH CERTIFICATION PLANS SUPPORT HOMEBOUND STATUS. HOME HEALTH WEB-PORTAL DOCUMENTATION ACCESSED BY THE PHYSICIAN MUST BE INCORPORATED INTO THE MEDICAL RECORD TO CORROBORATE THE PHYSICIAN, NPP, OR PAS F2F ENCOUNTER TO SUPPORT ELIGIBILITY FOR HOME HEALTH SERVICES.] Future Scheduled Test EACH ORDER ED IN-HOME OR TELEHEALTH VISIT, THE SKILLED NURSE WILL CONDUCT A COMPREHENSIVE ASSESSMENT INCLUDING VITAL SIGNS, PAIN, SAFETY, MENTAL/COGNITIVE/PSYCHOSOCIAL STATUS, MED MANAGEMENT, NUTRITION, SKIN INTEGRITY, PRESSURE ULCER PREVENTION, AND PATIENT/CAREGIVER ABILITY TO SUPPORT ORDERED CARE. SKILLED NURSE WILL INSTRUCT ON DISEASE PROCESS, MED MGMT., FALL PREVENTION AND SAFETY, INFECTION CONTROL AND PREVENTION, WARNING SIGNS, ADDRESS RESULTS OUTSIDE OF ORDERED PARAMETERS LISTED ON CARE PLAN, AND COORDINATE DISCHARGE WITH THE TREATING PROVIDER. MAY ACCEPT ORDERS FROM THE FOLLOWING PROVIDER(S) WHO WILL BE CONSULTING ON THE CERTIFIED CARE PLAN: DR. MARTINEZ [code = EACH ORDERED IN-HOME OR TELEHEALTH VISIT, THE SKILLED NURSE WILL CONDUCT A COMPREHENSIVE ASSESSMENT INCLUDING VITAL SIGNS, PAIN, SAFETY, MENTAL/COGNITIVE/PSYCHOSOCIAL STATUS, MED MANAGEMENT, NUTRITION, SKIN INTEGRITY, PRESSURE ULCER PREVENTION, AND PATIENT/CAREGIVER ABILITY TO SUPPORT ORDERED CARE. SKILLED NURSE WILL INSTRUCT ON DISEASE PROCESS, MED MGMT., FALL PREVENTION AND SAFETY, INFECTION CONTROL AND PREVENTION, WARNING SIGNS, ADDRESS RESULTS OUTSIDE OF ORDERED PARAMETERS LISTED ON CARE PLAN, AND COORDINATE DISCHARGE WITH THE TREATING PROVIDER. MAY ACCEPT ORDERS FROM THE FOLLOWING PROVIDER(S) WHO WILL BE CONSULTING ON THE CERTIFIED CARE PLAN: DR. MARTINEZ] Future Scheduled Test PATIENT RE QUIRED A DELAY IN THE HOME HEALTH START OF CARE. THE DELAYS REQUIRED A NOTIFICATION AND APPROVAL BY THE PHYSICIAN WHICH WAS DONE ON 12/27/22 AND 01/15/2023. THE NEW PHYSICIAN ORDERED START OF CARE DATE: 01/18/23. PATIENTS REASONS TO DELAY HOME HEALTH INCLUDED: MULTIPLE DOCTOR APPT AND PATIENT'S DAUGHTER'S REQUEST. [code = PATIENT REQUIRED A DELAY IN THE HOME HEALTH START OF CARE. THE DELAYS REQUIRED A NOTIFICATION AND APPROVAL BY THE PHYSICIAN WHICH WAS DONE ON 12/27/22 AND 01/15/2023. THE NEW PHYSICIAN ORDERED START OF CARE DATE: 01/18/23. PATIENTS REASONS TO DELAY HOME HEALTH INCLUDED: MULTIPLE DOCTOR APPT AND PATIENT'S DAUGHTER'S REQUEST. ] Future Scheduled Test SKILLED NU RSE TO OBSERVE AND ASSESS PATIENT WITH GENERALIZED DEPRESSION AND TEACH DEPRESSIVE SYMPTOMS. [code = SKILLED NURSE TO OBSERVE AND ASSESS PATIENT WITH GENERALIZED DEPRESSION AND TEACH DEPRESSIVE SYMPTOMS. ] Future Scheduled Test FOR EACH O RDERED, IN-HOME OR TELEHEALTH VISIT, THE PHYSICAL THERAPIST WILL EVALUATE AND TREAT PATIENTS FUNCTIONAL DEFICITS. PHYSICAL THERAPIST WILL ASSESS AND INSTRUCT ON PAIN, FALL PREVENTION AND SAFETY, MENTAL/COGNITIVE/PSYCHOSOCIAL STATUS, MED MANAGEMENT, SKIN INTEGRITY, PRESSURE ULCER PREVENTION, AND INFECTION CONTROL/PREVENTION RELATED TO THE PRIMARY MEDICAL DIAGNOSIS AND ACTIVE CO-MORBIDITIES THAT MAY IMPACT THE PATIENTS OUTCOME. PHYSICAL THERAPIST TO DEVELOP AND INSTRUCT ON HOME EXERCISE PROGRAM TO INCLUDE THERAPEUTIC EXERCISES DESIGNED TO RESTORE FUNCTIONAL RANGE OF MOTION, STRENGTH, BALANCE, NEUROMUSCULAR AND SENSORIMOTOR FUNCTION. PHYSICAL THERAPIST WILL INSTRUCT ON FUNCTIONAL TRANSFERS, BED MOBILITY AND FALL RISK REDUCTION STRATEGIES INCLUDING USE OF ADAPTIVE EQUIPMENT AND EDUCATION FOR HOME MODIFICATIONS TO MAXIMIZE SAFETY, IMPROVE FUNCTION AND DECREASE FALL RISK. PHYSICAL THERAPIST TO INSTRUCT ON GAIT TRAINING, BALANCE TRAINING, AND FALL RISK REDUCTION STRATEGIES INCLUDING USE OF ADAPTIVE EQUIPMENT AND EDUCATION FOR HOME MODIFICATIONS TO MAXIMIZE SAFETY, IMPROVE FUNCTION, AND DECREASED FALL RISK. PHYSICAL THERAPIST TO COMPLETE SKILLED MANUAL THERAPY TECHNIQUES TO BE APPLIED TO ADDRESS PAIN AND RANGE OF MOTION IMPAIRMENTS TO IMPROVE PATIENT ABILITY TO COMPLETE BATHING AND DRESSING PHYSICAL THERAPIST TO INSTRUCT ON ENERGY CONSERVATION TECHNIQUES INCLUDING STRATEGIES TO MINIMIZE MUSCULAR FATIGUE, JOINT STRESS, CARDIOPUMONARY DEMAND AND/OR PAIN DURING FUNCTIONAL ACTIVITIES. [code = FOR EACH ORDERED, IN-HOME OR TELEHEALTH VISIT, THE PHYSICAL THERAPIST WILL EVALUATE AND TREAT PATIENTS FUNCTIONAL DEFICITS. PHYSICAL THERAPIST WILL ASSESS AND INSTRUCT ON PAIN, FALL PREVENTION AND SAFETY, MENTAL/COGNITIVE/PSYCHOSOCIAL STATUS, MED MANAGEMENT, SKIN INTEGRITY, PRESSURE ULCER PREVENTION, AND INFECTION CONTROL/PREVENTION RELATED TO THE PRIMARY MEDICAL DIAGNOSIS AND ACTIVE CO-MORBIDITIES THAT MAY IMPACT THE PATIENTS OUTCOME. PHYSICAL THERAPIST TO DEVELOP AND INSTRUCT ON HOME EXERCISE PROGRAM TO INCLUDE THERAPEUTIC EXERCISES DESIGNED TO RESTORE FUNCTIONAL RANGE OF MOTION, STRENGTH, BALANCE, NEUROMUSCULAR AND SENSORIMOTOR FUNCTION. PHYSICAL THERAPIST WILL INSTRUCT ON FUNCTIONAL TRANSFERS, BED MOBILITY AND FALL RISK REDUCTION STRATEGIES INCLUDING USE OF ADAPTIVE EQUIPMENT AND EDUCATION FOR HOME MODIFICATIONS TO MAXIMIZE SAFETY, IMPROVE FUNCTION AND DECREASE FALL RISK. PHYSICAL THERAPIST TO INSTRUCT ON GAIT TRAINING, BALANCE TRAINING, AND FALL RISK REDUCTION STRATEGIES INCLUDING USE OF ADAPTIVE EQUIPMENT AND EDUCATION FOR HOME MODIFICATIONS TO MAXIMIZE SAFETY, IMPROVE FUNCTION, AND DECREASED FALL RISK. PHYSICAL THERAPIST TO COMPLETE SKILLED MANUAL THERAPY TECHNIQUES TO BE APPLIED TO ADDRESS PAIN AND RANGE OF MOTION IMPAIRMENTS TO IMPROVE PATIENT ABILITY TO COMPLETE BATHING AND DRESSING PHYSICAL THERAPIST TO INSTRUCT ON ENERGY CONSERVATION TECHNIQUES INCLUDING STRATEGIES TO MINIMIZE MUSCULAR FATIGUE, JOINT STRESS, CARDIOPUMONARY DEMAND AND/OR PAIN DURING FUNCTIONAL ACTIVITIES.] Goal 2023-03-13 Patient Goal - 1 0.16.23- TO BE ABLE TO MOVE MY RIGHT ARM BETTER Goal Provider Goal - PHYSICAL THERAPY EVALUATION WILL BE COMPLETED, AND A PLAN OF CARE WILL BE DEVELOPED FOR THE TREATMENT OF PATIENT DEFICITS RELATED TO PRIMARY DIAGNOSIS FOR HOME CARE EPISODE. PATIENT/CAREGIVER TO VERBALIZE AND DEMONSTRATE UNDERSTANDING OF ASSOCIATED DISEASE PROCESSES AND THEIR INFLUENCE ON FUNCTION IN THE HOME ENVIRONMENT AND MINIMIZE RISK OF HOSPITALIZATION. Goal Provider Goal - A PLAN OF CARE WILL BE ESTABLISHED THAT MEETS ALL PATIENT'S HALFWAY NEEDS AND COUNTER SIGNED BY PHYSICIAN. Goal Provider Goal - PATIENT WILL BE FREE OF FALLS AND HOSPITALIZATIONS THROUGHOUT EPISODE OF CARE. PATIENT/CAREGIVER WILL UNDERSTAND AND ADHERE TO ORDERED DIET. PATIENT/CAREGIVER WILL INDEPENDENTLY MANAGE MEDICATIONS, UNDERSTAND ANY CHANGES, SIDE EFFECTS TO REPORT BY END OF EPISODE. PATIENT WILL BE FREE OF INFECTION AND UNDERSTAND MEASURES OF PREVENTION. PATIENT/CAREGIVER WILL COLLABORATE WITH SKILLED NURSE TO DEVELOP POC AT SOC AND ON AN ONGOING BASIS UPDATES ARE NEEDED. UNDERSTAND PROGRESS MADE/DISCHARGE PLANNING. ADDITIONAL ORDERS WILL BE RECEIVED FROM ALTERNATE PHYSICIANS IN A TIMELY MANNER. Goal Provider Goal - PATIENT WILL RECEIVE HOME HEALTH SERVICES ON ORDERED START DATE. Goal Provider Goal - PATIENT/CAREGIVER WILL VERBALIZE UNDERSTANDING OF THE CONTRIBUTING FACTORS AND SYMPTOMS OF DEPRESSION. Goal Provider Goal - PHYSICAL THERAPY EVALUATION WILL BE COMPLETED, AND A PLAN OF CARE WILL BE DEVELOPED FOR THE TREATMENT OF PATIENT DEFICITS RELATED TO PRIMARY DIAGNOSIS FOR HOME CARE EPISODE. PATIENT/CAREGIVER TO VERBALIZE AND DEMONSTRATE UNDERSTANDING OF ASSOCIATED DISEASE PROCESSES AND THEIR INFLUENCE ON FUNCTION IN THE HOME ENVIRONMENT AND MINIMIZE RISK OF HOSPITALIZATION. PATIENT/CAREGIVER WILL RETURN DEMONSTRATE ACCURATE AND SAFE EXECUTION OF ESTABLISHED HOME EXERCISE PROGRAM TO IMPROVE ABILITY TO AMBULATE AND COMPLETE ADLS PATIENT WILL DEMONSTRATE IMPROVED SAFETY AND ABILITY WITH TRANSFERS AND BED MOBILITY. PATIENT WILL DEMONSTRATE IMPROVED SAFETY AND ABILITY WITH GAIT, BALANCE, AND REDUCED FALL RISK. PATIENT WILL REPORT DECREASED PAIN AND IMPROVED RANGE OF MOTION WITH DEMONSTRATED IMPROVEMENT TO COMPLETE BATHING AND DRESSING PATIENT WILL RETURN DEMONSTRATE APPROPRIATE USE OF ENERGY CONSERVATION TECHNIQUES TO FACILITATE IMPROVED FUNCTIONAL INDEPENDENCE AND SAFETY EVIDENCED BY IMPROVED ABILITY TO AMBULATE AND COMPLETE ADLS Reason for Visit INDEPENDENT WITH USE OF ASSISTIVE DEVICE Encounters Start Date/Time End Date/Time Encounter Type Admission Type Attending [facility] Care Department Encounter ID Discharge Date Discharge Status Discharge Condition Discharge Reason Percent Goals Met 2023-01-18 00:00:00 2023-03-13 00:00:00 Outpatient NEW ADMISSION JASON ALBERT [facility] [id number] 00:00:00 DISCHARGE TO HOME OR SELF CARE INDEPENDEN T WITH USE OF ASSISTIVE DEVICE GOALS MET 100.00
--- OUTSIDE RECORDS SUMMARY | 2024-03-20 23:38 | XMS_ITS | Continuity of Care Document ---
Author Organization [facility] CLI [facility], [address] [place] [address] [place]opedics ([place]) Address [address] [place] [address] Care Team Providers Care Alpaca Farmer Name Role Phone MARTINEZ SHAUNNA Primary Care Provider [phone] Assessment Encounter Date Assessment Date Assessment LastModified by Organization Details LastModified Time 02/28/2024 02/28/2024 HISTORY OF PRESENT ILLNESS: The patient presents for evaluation of possible right radial head fracture after being seen at [place]? [facility] Emergency Department. Date of injury 02/04/24. The patient has been nonweightbearing to the right upper extremity. Wearing a sling but states she has never had any pain in her right elbow and she is unsure of why she has to immobilize it. The patient fell. She is residing at a correction in [place]. She is normally in the independent side. She wants to return there. She has been unable to use her walker because of her sling so she presents in a wheelchair today. 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 Her shoulder hurts but no pain in her elbow. Her shoulder pain is no worse than prior to her fall. PHYSICAL EXAMINATION: CONST: No acute distress. HENT: Oral mucosa pink and moist. RESP: Breathing appears normal. No use of accessory muscles. PSYCH: Stable mood and affect. NEURO: No speech difficulty. MSK: 2+ palpable radial pulse. Sensation intact to upper extremity dermatomes. Motor intact to radial, medial, ulnar distributions. On the right: Full range of motion of the right elbow including flexion, extension, pronation and supination. No pain in the elbow with range of motion. No tenderness to palpation of the radial head. DIAGNOSTIC DATA: Imaging of the right elbow was obtained today and demonstrates no acute fracture identified. These images were independently reviewed. Please see radiologist's report for full details. ASSESSMENT: Right elbow injury. PLAN: The patient can weightbear as tolerated. She can discontinue her sling. She has no restrictions. She will follow up on an as needed basis. She was sent to the facility with an order sheet. The patient verbalized an understanding. All questions were answered. [email or web address] Not available 02/28/2024 17:09:33 Plan of Treatment Reminders Order Date Submit Date Provider Last Modified By Organization Details Last Modified Time Details Appointments Establish ed Patient 10.EST 2023 03:10P M Dr. Tez Hammond Not available Not available Not available Lab None recorded. Referral None recorded. Procedures None recorded. Surgeries None recorded. Imaging None recorded. Medication Orders None recorded. Patient TargetsNo targets recorded. Patient InstructionsNo instructions recorded. Reason for Referral None Reported. 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 No gross malali gnment or large joint effusi on is seen. IMPRES TERESA: Postsu rgical change s withou t eviden ce of acute bony injury or malali gnment Referr ed By: ARLEN ER NON-ST AFF Electr onical ly Signed By: Memo Rosario MD on 2:12 AM Interp reted By: Memo Rosario MD, 2:12 AM [facility] Only - [facility] Rad [address] [place] [address], [address], 02/25/2024 09:40:18 02/05/20 24 02/05/2024 XR, sh[place] [address]helle [address] [place] [address] Indica tion: Should er pain and fall COMPAR MALIK: None FINDIN GS: 3 views left should er. There are acromi al clavic ular and to a lesser extent glenoh umeral joint degene rative change s. No acute fractu re, disloc ation, or sublux ation is seen. Mild hazy opacit ies in the lungs are noted. IMPRES TERESA: See separa te chest radiog raph dictat ion for the lung findin gs with degene rative change s in the should er and no acute bony injury or malali gnment seen Referr ed By: PROVID ER NON-ST AFF Electr onical ly Signed By: Memo Rosario MD on 2:14 AM Interp reted By: Memo Rosario MD, 2:13 AM [facility] - [facility] Rad [address] [place] [address], [address], 02/25/2024 09:40:19 02/28/20 24 02/28/2024 XR, elbow , 3 or more view [facility] [address] [place] [address] Teleph one Name: Miguel Reeves [id number] am Date: 2023 Age: 84Phys ician: EMILIA Sky Lauren : 1Ex aminat ion: XR ELBOW 3 PLUS VIEWS RIGHT EXAM: XR ELBOW 3 PLUS VIEWS RIGHT HISTOR Y: Follow up for right elbow, post fall. TECHNI QUE: 3 views of the right elbow (4 images ) COMPAR MALIK: 2 views of the right forear m . FINDIN GS: There are degene rative change s of the elbow joint. No elbow joint effusi on is seen. No acute appear ing fractu re is identi fied. IMPRES TERESA: 1. No acute fractu re or disloc ation. No joint effusi on. 2 Mild degene rative change . Electr onical ly signed in Ender gifford by: Nhan Flores on: 4 2:39 PM cc: Page PAGE 1 of PAV[facility] ES 1 [email or web address] [place] Only - [facility] [address] [facility], [place], [address], 02/28/2024 17:08:23 02/28/20 24 02/05/2024 XR, forea rm, 2 view No observ ation record ed. mheren Not Available 2023 18:45:13 Result Notes None recorded. Problems Name Problem SNOMED Code Status Onset Date Resolution Date Notes Provider Name and Address Organization Details Recorded Time Injury of right elbow region 8906915536214 9101 Active 2023 Linnette Sky PA-C [address] [place] [address], [address], [facility] 4 15:59:38 Atrial fibrillatio n 22793779 Active [address] [facility] 4 15:53:03 Mitral valve regurgitati on 35767915 Active 2023 Tez Hammond MD [address] [place] [address], [address], [facility] 4 15:18:17 Problem Notes None recorded. Medical Equipment None Reported. Medications Name Sig Start Date Stop Date Status Note LastModified by Organization Details LastModified Time amoxicillin 500 mg capsule active Not Available Not Available Not Available acetaminophe n 325 mg tablet active Not Available Not Available Not Available clindamycin HCl 300 mg capsule active Not Available Not Available Not Available amiodarone 200 mg tablet active Not Available Not Available Not Available hydrocodone 5 mg-acetamino phen 325 mg tablet active Not Available Not Available Not Available sucralfate 1 gram tablet Take 1 tablet 4 times a day by oral route. active Not Available Not Available No t Available famotidine 40 mg tablet active Not Available Not Available Not Available sumatriptan 50 mg tablet Take 1 tablet by oral route. active Not Available Not Available No t Available melatonin 3 mg tablet active Not Available Not Available No t Available aspirin 81 mg tablet,delay ed release active Not Available Not Available N ot Available tramadol 50 mg tablet active Not Available Not Available No t Available magnesium oxide 400 mg (241.3 mg magnesium) tablet active Not Available Not Available Not Available lorazepam 0.5 mg tablet active Not Available Not Available Not Available cephalexin 500 mg capsule active Not Available Not Available Not Available nystatin 100,000 unit/gram topical cream 10/14 completed Not Available Not Available Not Available docusate sodium 100 mg capsule Take 1 capsule twice a day by oral route. active Not Available Not Available No t Available omeprazole 20 mg capsule,yaneth yed release active Not Available Not Available Not Available furosemide 20 mg tablet Take 1 tablet every day by oral route for 5 days. active Not Available Not Available No t Available gabapentin 100 mg capsule active Not Available Not Available Not Available metoprolol succinate ER 25 mg tablet,exten ded release 24 hr active Not Available Not Available Not Available polyethylene glycol 3350 17 gram/dose oral powder active Not Available Not Available Not Available oxybutynin chloride 5 mg tablet active Not Available Not Available No t Available escitalopram 20 mg tablet active Not Available Not Available Not Available aripiprazole 15 mg tablet active Not Available Not Available Not Available duloxetine 60 mg capsule,yaneth yed release active Not Available Not Available Not Available lactulose 10 gram/15 mL oral solution 10/14 completed Not Available Not Available Not Available calcium 600 mg (as carbonate)-v itamin D3 10 mcg (400 unit) tablet active Not Available Not Available Not Available ferrous sulfate 324 mg (65 mg iron) tablet,delay ed release active Not Available Not Available N ot Available diclofenac 1 % topical gel active Not Available Not Available Not Available Stool Softener 100 mg tablet active Not Available Not Available No t Available Myrbetriq 25 mg tablet,exten ded release 10/14 completed Not Available Not Available Not Available Eliquis 2.5 mg tablet active Not Available Not Available No t Available Healthy Eyes SuperVision2 250 mg-90 mg-10 mg-1 mg capsule active Not Available Not Available N ot Available Vitals None Recorded Social History None recorded. Functional Status None recorded. Mental Status None recorded. Family History Nothing Reported. Medical History No medical history recorded. Gynecological HistoryNo gynecological history recorded. Obstetrics History GPAL:G 0 P 0 0 0 0 Past Encounters Encounter ID Performer Location Encounter Start Date Encounter Closed Date Diagnosis/Indication Diagnosis SNOMED-CT Code Diagnosis ICD10 Code [id number] [facility] [address] [facility] ([place]) [address] [place] [address] 02/28/2024 14:47:36 02/29/2024 05:42:50 Injury of right elbow region 4670053633 3254751 S59.901A Fall W19.XXXA Health Concerns Section Related Observation LastModified by Organization Detai ls LastModified Time None Recorded Concern Status LastModified by Organization Details LastModified Time None Recorded Payers Encounter Date Sequence Insurance Name Policy Number Policy Walker Covered Member ID Walker Member ID Guarantor Name 02/28/2024 1 [place] Emerald Reeves [id number] Emerald Reeves 02/28/2024 2 COUNTRY FINANCIAL (MEDICARE SUPPLEMENT) PLAN F Emerald Reeves [id number] Emerald Reeves OBGyn Episode No OBEpisode recorded.
--- OUTSIDE RECORDS SUMMARY | 2024-03-20 23:38 | XMS_ITS | Data Portability ---
Author Organization [facility] CLI [facility], [address] [place] [address] ([place]) Address [address] [place] [id number] Care Team Providers Care Assistant Associate Full Professor Name Role Phone SHAUNNA MARTINEZ Primary Care Provider [phone] Assessment Encounter Date Assessment Date Assessment LastModified by Organization Details LastModified Time 10/19/2023 10/19/2023 83 year-old female here for follow-up. Previous patient of . ? She has history of paroxysmal atrial fibrillation, hyperlipidemia, depression, mitral regurgitation. ? 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 ? She had an echo done in September 2019 that showed normal LV systolic function and moderate posteriorly directed mitral valve regurgitation. ? Since last visit she has mostly done okay. She is now in assisted living. She has been walking with a walker a fair bit. She is developed lower extremity edema however. Denies chest pain or worsening dyspnea or dizziness syncope. EKG shows sinus rhythm recheck echo in the setting of edema. Trial Lasix 40 mg daily for 5 days ? Assessment and plan ? 83-year-old female here for follow-up. ? 1. Paroxysmal atrial fibrillation: She is in sinus rhythm today. She is on amiodarone once every 3 days for rhythm control. Continue Eliquis 2.5 mg twice daily for thromboembolic stroke prophylaxis. If she develops anemia on this she will be a candidate for Watchman left atrial appendage occluder device. ? 2. Moderate to severe mitral regurgitation: Degenerative mitral valve. Rescue not to be a candidate for MitraClip. She does not want open heart surgery. She has no symptoms suggestive of heart failure at this time. Echo shows normal LV function and moderate mitral regurgitation. Recheck echo in the setting of lower extremity edema. Try Lasix 20 mg daily for 5 days. ? 3. Ischemia evaluation. She had abnormal stress test in 2013 but was treated medically. She had repeat stress test in 2017 which was negative for ischemia. ? Follow-up in 3 months ? terence Not available 10/19/2023 15:18:10 02/28/2024 02/28/2024 HISTORY OF PRESENT ILLNESS: The patient presents for evaluation of possible right radial head fracture after being seen at [facility] Emergency Department. Date of injury 02/04/24. The patient has been nonweightbearing to the right upper extremity. Wearing a sling but states she has never had any pain in her right elbow and she is unsure of why she has to immobilize it. The patient fell. She is residing at a assisted in [place]. She is normally in the independent side. [...] Modified Time Details Appointments Establish ed Patient MarcieEST 2023 03:10P M Dr. Tez Hammond Not available Not available Not available Lab None recorded. Referral None recorded. Procedures None recorded. Surgeries None recorded. Imaging None recorded. Medication Orders None recorded. Patient TargetsNo targets recorded. Patient InstructionsNo instructions recorded. Reason for Referral None Reported. Results Created Date Observation Date Name Description Value Unit Range Abnormal Flag Note LastModifiedBy Organization Detail LastModifiedTime 10/27/19 24 10/27/2023 sumeet العراقي am ECG, 12 leads min No observ ation record ed. JODEE [facility] Only - [facility] Ekg [address] [address], [place], [address], 11/08/2023 10:05:44 11/18/19 24 04/21/2022 imagi ng/di agnos tic resul t No observ ation record ed. [email or web address] Not Available 11/18/2023 17:09:11 01/06/20 24 01/05/2024 , [place] [facility] [place] [address] [facility] [place] [address] Adult [place] rdjosé am Report Name: Miguel KLEIN Study Date: 2023 : 1939 [id number] Gender : Female Age: 83 yrs Height : 62 in Weight : 144 lb BSA: 1.7 m2 Orderi ng Physic jayme: Alex guthrie MD Perfor med By: Reason For Study: Atrial Fibril lation I48.91 Patien t Locati on: CARDIO LOGY Interp retati on Summar y Left ventri cular systol ic functi on is normal . Ejecti on Fracti on = 55-60% . The right ventri bret is normal in size and functi on. PROCED URE DETAIL S: A comple te transt horaci c echoca rdiogr am was perfor med (2D; M-mode ; spectr al and color flow Dopple r). The study was technkelly babb. LEFT VENTRI BRET: The left ventri cular marley by 2D measur ement are consis tent with severe concen tric left ventri cular hypert rophy. Left ventri cular systol ic functi on is normal . Ejecti on Fracti on = 55-60% . There is increa sed left atrial pressu re with grade II diasto lic dysfun ction. RIGHT VENTRI BRET: The right ventri bret is normal in size and functi on. AORTIC VALVE: There is no eviden ce of aortic stenos is. MITRAL VALVE: There is modera te mitral annula r calcif icatio n. There is mild mitral regurg itatio n. TRICUS PID VALVE: Right ventri cular systol ic pressu re is normal at 30-34 mmHg. PERICA RDIUM/ PLEURA : There is no perica rdial effusi on. MMode/ 2D Measur ements IVSd: 1.8 cm LVIDd: 3.5 cm LVIDs: 1.8 cm LVPWd: 1.9 cm LV mass(C )d: 278.4 grams LV mass Index: 167.4 grams/ m2 Ao sinus of Valsal va diam: 3.1 cm LVOT diam: 1.9 cm LVOT area: 2.8 cm2 LVLd ap4: 6.3 cm EDV(MO D-sp4) : 55.4 ml LVLs ap4: 4.4 cm ESV(MO D-sp4) : 22.8 ml EF(MOD -sp4): 58.8 % LVLd ap2: 6.2 cm EDV(MO D-sp2) : 45.3 ml LVLs ap2: 5.0 cm ESV(MO D-sp2) : 19.8 ml EF(MOD -sp2): 56.3 % LAV(MO D-sp2) : 52.2 ml LAV(MO D-sp4) : 44.1 ml TAPSE_ phl: 2.0 cm LA ESV (MOD-b p): 48.6 ml Time Measur ements MM R-R int: 0.77 sec Dopple r Measur ements MV E max ly: 143.0 cm/sec MV A max ly: 140.2 cm/sec MV E/A: 1.0 MV dec time: 0.21 sec MV V2 max: 158.6 cm/sec MV max P.1 mmHg MV V2 mean: 97.1 cm/sec MV mean P.8 mmHg MV V2 VTI: 39.3 cm MVA(VT I): 2.3 cm2 MV P1/2t max ly: 165.4 cm/sec MV P1/2t: 60.1 msec MVA(P1 /2t): 3.7 cm2 MV dec slope: 805.4 cm/sec 2 AV max: 164.0 cm/sec Ao max P.8 mmHg AV mean v: 101.2 cm/sec Ao mean P.1 mmHg AV VTI: 41.4 cm CORONA(I, D): 2.2 cm2 CORONA(V, D): 2.4 cm2 LVOT max P.6 mmHg LVOT mean P.1 mmHg LVOT max: 138.2 cm/sec LVOT mean: 92.7 cm/sec LVOT VTI: 32.0 cm MR max ly: 646.6 cm/sec MR max P.3 mmHg SV(LVO T): 89.3 ml PV max: 109.9 cm/sec PV max P.8 mmHg PI end-d ly: 70.6 cm/sec TR max ly: 261.2 cm/sec TR max P.4 mmHg RVSP(T R): 30.4 mmHg RAP systol e: 3.0 mmHg AV VTI Ratio: 0.77 CORONA (Dimen sionle ss Index) : 0.84 CORONA (I,D) index (cm 2/m 2): 1.3 MV E' avg (septa l MV E/E' avg ratio: 20.0 SV(LVO T) Index: 53.7 Electr onical ly signed by:Taylor guthrie MD 2023 06:46 AM cc: Miguel Klein 2023 [place] CARDIO ECHO INTERFACE Sc Only - [facility] [address] [place] [address], [address], 01/06/2024 07:47:16 02/05/20 24 02/05/2024 XR, knee, 1 or [address], [place] [address] Indica tion: Fall, knee pain COMPAR MALIK: [...] injury or malali gnment Referr ed By: [facility] ER NON-ST AFF Electr onical ly Signed By: Memo Rosario MD on 2:12 AM Interp reted By: Memo Rosario MD, 2:12 AM [place] Only - [facility] Rad [address] [place] [address], [address], 02/25/2024 09:40:18 02/05/20 24 02/05/2024 XR, shoul richelle [address], [place] [address] Indica tion: Should er pain and fall [...] or malali gnment seen Referr ed By: [facility] ER NON-ST AFF Electr onical ly Signed By: Memo Rosario MD on 2:14 AM Interp reted By: Memo Rosario MD, 2:13 AM [email or web address] [facility] Only - [facility] Rad [address] [place], [address], 02/25/2024 09:40:19 02/28/20 24 02/28/2024 XR, elbow , [address] [facility] 1st [address] [address] Teleph [phone] Name: Miguel Klein [id number] am Date: 2023 Age: 84Phys ician: EMILIA Sky Lauren : 1Ex aminat ion: XR ELBOW 3 PLUS VIEWS RIGHT EXAM: XR ELBOW 3 PLUS VIEWS RIGHT HISTOR Y: Follow up for right elbow, post fall. TECHNI QUE: 3 views of the right elbow (4 images ) COMPAR MALIK: 2 views of the right forear m 024. FINDIN GS: There are degene rative change s of the elbow joint. No elbow joint effusi on is seen. No acute appear ing fractu re is identi fied. IMPRES TERESA: 1. No acute fractu re or disloc ation. No joint effusi on. 2 Mild degene rative change . Electr onical ly signed in Handley cribe by: Nhan Flores on: 4 2:39 PM cc: Page PAGE 1 of [facility] ES 1 [email or web address] [facility] Only - [facility] [address] , [place], [address], 02/28/2024 17:08:23 02/28/20 24 02/05/2024 XR, forea rm, 2 view No observ ation record ed. mheren Not Available 2023 18:45:13 Result Notes None recorded. Problems Name Problem SNOMED Code Status Onset Date Resolution Date Notes Provider Name and Address Organization Details Recorded Time Injury of right elbow region 1506163404410 9101 Active 2023 Linnette Sky PA-C [address] [place], [address] , [facility] 4 15:59:38 Atrial fibrillatio n 13117618 Active 2023 Renate Martinez null, [facility] 4 15:53:03 Mitral valve regurgitati on 37001780 Active 2023 Tez Hammond MD [address] [place] [address], [address], [place] [facility] 4 15:18:17 Problem Notes None recorded. Procedures Surgical History None recorded. Imaging Results Imaging Date Name Status LastModified by Organization Details LastModified Time 10/27/2023 electrocardiogram, routine ECG, 12 leads min completed JODEE Sc Only - [facility] Ekg [address] [facility] [address] [address], [place], [address], 11/08/2023 10:05:44 04/21/2022 imaging/diagnostic result completed [email or web address] Information not available 11/18/2023 17:09:11 01/05/2024 US, echocardiogram completed INTERFACE Sc Onl y - [facility] [address] [place] [address], [address], 01/06/2024 07:47:16 02/05/2024 XR, knee, 1 or 2 view completed [email or web address] [facility] Only - [facility] Rad [address] [place], [address], 02/25/2024 09:40:18 02/05/2024 XR, shoulder completed [email or web address] Sc Only - [facility] Rad [address] [place], [address], 02/25/2024 09:40:19 02/28/2024 XR, elbow, 3 or more view completed [email or web address] Sc Only - [facility] [address] [place] [address], [address], 02/28/2024 17:08:23 02/05/2024 XR, forearm, 2 view completed [email or web address] Information not available 02/28/2024 18:45:13 Procedure Notes None recorded. Medical Equipment None Reported. [...] Available Not Available N ot Available Vitals Date Recorded Heart rate Oxygen saturation Oxygen saturation in Arterial blood by Pulse oximetry Body weight Systolic blood pressure Diastolic blood pressure Provider Name and Address Organization Details Last Updated DateTime 4 86 /min 99 % 99 % 31667.6 7 g 118 mm[Hg] 64 mm[Hg] [facility] 4 14:35:30 Social History None recorded. Functional Status None recorded. Mental Status None recorded. Family History Nothing Reported. Medical History No medical history recorded. Gynecological HistoryNo gynecological history recorded. Obstetrics History GPAL:G 0 P 0 0 0 0 Past Encounters Encounter ID Performer Location Encounter Start Date Encounter Closed Date Diagnosis/Indication Diagnosis SNOMED-CT Code Diagnosis ICD10 Code [id number] Tez Hammond MD [facility] Specialty Cardiolog y ([place]) [address] [place] [address] 10/19/2023 14:24:09 10/22/2023 13:00:39 Atrial fibrillation 10410725 I48.91 Mitral laya ve regurgitation 17316814 I34.0 [id number] Linnette Sky PA-C [address] [place] [address] Orthopedi [place] ([place]) [address] [place] [phone] 02/28/2024 14:47:36 02/29/2024 05:42:50 Injury of right elbow region 9635631741 1163279 S59.901A Fall W19.XXXA Health Concerns Section Related Observation LastModified by Organization Detai ls LastModified Time None Recorded Concern Status LastModified by Organization Details LastModified Time None Recorded Advance Directives Directive None Recorded Payers Encounter Date Sequence Insurance Name Policy Number Policy Walker Covered Member ID Walker Member ID Guarantor Name 10/19/2023 1 [place] Emerald Klein [id number] Emerald Klein 02/28/2024 1 [place] Emerald Klein [id number] Emerald Klein 02/28/2024 2 COUNTRY FINANCIAL (MEDICARE SUPPLEMENT) PLAN F Emerald Klein [id number] Emerald Klein OBGyn Episode No OBEpisode recorded.
== END 2024-03-17 14:47 | disposition home or self-care (01) ==
PROVIDERS: Visit Provider Family Medicine
DX: M54.50 Low back pain, unspecified (principal); N39.0 Urinary tract infection, site not specified; G62.9 Polyneuropathy, unspecified; D63.8 Anemia in other chronic diseases classified elsewhere; R82.90 Unspecified abnormal findings in urine
CPT/HCPCS: 81001; 87086; 87088

== ENCOUNTER 2024-03-27 09:04 | Outpatient (CLI) | payer MEDICARE, SELFPAY ==
[2024-03-27 09:38] LABS: Hematocrit 36.3 % (35.0-42.0); Hemoglobin 11.7 g/dL (11.7-13.8); Mean Corpuscular HGB Conc 32.2 g/dL (32-36); Mean Corpuscular Hemoglobin 28.7 pg (27.0-31.0); Mean Platelet Volume 10.1 fl (9.2-11.8); Platelet Count Result 269 K/mm3 (150-420); Red Blood Count 4.08 M/mm3 (4.20-5.40); Red Cell Distribution Width 13.4 % (11.6-14.4); White Blood Count 8.8 K/mm3 (4.8-10.8)
[2024-03-27 10:12] LABS: Alanine Aminotransferase 15 U/L (14-59); Albumin Level 3.2 g/dL (3.4-5.0); Alkaline Phosphatase 102 U/L (46-116); Anion Gap 8 mmol/L (4-12); Aspartate Amino Transferase 11 U/L (15-37); Bilirubin,Total 0.4 mg/dL (0.00-1.00); Blood Urea Nitrogen 32 mg/dL (7-18); Carbon Dioxide 28 mmol/L (21-32); Chloride 101 mmol/L (98-108); Estimated Glomerular Filt Rate 33; Glucose 84 mg/dL (70-99); Osmolality Calculated 289 mOsm/kg (285-295); Potassium 4.3 mmol/L (3.5-5.1); Sodium 137 mmol/L (136-145); Thyroid Stimulating Hormone 1.17 uIU/mL (0.36-3.74); Total Protein 5.8 g/dL (6.4-8.2)
== END 2024-03-27 09:05 | disposition home or self-care (01) ==
LOC: CHSLAB 09:06
PROVIDERS: PCP Family Medicine; Visit Provider Family Medicine
DX: D64.9 Anemia, unspecified (principal); I10 Essential (primary) hypertension; R53.1 Weakness
CPT/HCPCS: 36415; 80053; 84439; 84443; 85027

== ENCOUNTER 2024-04-29 09:16 | Outpatient (CLI) | payer MEDICARE, SELFPAY ==
--- NOTE | ~2024-04-29 | MR_ITS ---
EXAMINATION: MR brain/brain stem wo con DATE: 04/29/2024 10:38 INDICATION: Altered mental status and confusion TECHNIQUE: Magnetic resonance imaging (MRI) of the brain and brainstem was performed without intraven ous contrast. Sequences included sagittal and axial T1-weighted SE, axial diffusion-weighted FS SE, a xial T2*-weighted GRE, axial T2-weighted FLAIR, and axial T2-weighted FSE. Postcontrast axial and cor onal T1-weighted SE was obtained. Apparent diffusion coefficient (ADC) maps were created. COMPARISON: None. FINDINGS: There are no areas of restricted diffusion to suggest acute infarction. No intracranial hemorrhage or abnormal intracranial mass lesion. There are no intraparenchymal signal abnormalities seen on the ot her pulse sequences. Symmetric prominence of the sulci consistent with mild age-appropriate diffuse c erebral volume loss. The ventricles are symmetric and normal in size. There are no abnormal extra-axi al fluid collections. Flow voids are seen in the cerebral arteries on the T2-weighted sequences consi stent with their expected patency. Changes of bilateral intraocular lens replacement. Visualized orb its and soft tissues are unremarkable. IMPRESSION: 1. Normal aging brain. No acute intracranial process. Reviewed, dictated and finalized at location A. OMY AND PHYSIOLOGY INSTRUCTOR
--- OUTSIDE RECORDS SUMMARY | 2024-04-29 09:22 | XMS_ITS | Clinical Summary ---
Author Organization [facility] Address [address] [place] [address]. [place] [address] [place] [address] Care Team Providers Care Television Repairer Name Role Phone Jarret Kwong MD Primary Care Provider Robbin Urban MD Unavailable [phone] Allergies No known active allergies Medications [...] nondisplaced fracture of fifth cervical vertebra ([facility]) 10/08/2022 Cervical spine fracture (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) 11/02/2018 Hemorrhagic shock ([facility]) 10/10/2018 Rotator cuff tear arthropathy of right shoulder 07/15/2018 Shoulder pain with history of repair of rotator cuff 07/11/2018 Mitral regurgitation 01/12/2018 Fracture, vertebral, lumbar closed ([facility]) 01/01/2017 Multiple rib fractures 01/01/2017 Pneumothorax 01/01/2017 Acute sinusitis 09/19/2008 Blood pressure elevated without history of HTN 0 09/19/2008 Tachycardia 09/19/2008 Predominant disturbance of emotions 08/23/2008 Nausea with vomiting 06/11/2008 Localized primary osteoarthritis of lower leg Contusion of chest wall 02/14/2008 Common migraine 01/05/2006 Esophageal reflux 01/05/2006 Ventral hernia 07/27/2005 Depression 12/18/2004 Atrial fibrillation ([facility]) Hypotension Resolved Problems Problem Noted Date Diagnosed Date Resolved Date Need for immunization against influenza 05/26/2019 12/15/2019 Need for varicella vaccine 05/26/2019 0 12/15/2019 Encounter for screening mamm ogram for high-risk patient 01/12/2008 12/15/2019 Encounters Date Type Department Care Team Description 02/05/2024 12:31 AM CDT - 02/08/2024 10:40 AM CONCRETE INSPECTOR Emergency [place] [address] [place] [address] iRc Doyle MD Gowda, Chetan N, MD Patel, [...] place to sleep or slept in a penitentiary (including now)? No 10/09/2022 Comments No Sex and Gender Information Value Date Recorded Sex Assigned at Not on file Legal Sex Female 12:12 AM CDT Gender Identity Not on file Sexual Orientation Not on file Last Filed Vital Signs Vital Sign Reading Time Taken Comments Blood Pressure 135/56 02/08/2024 8:23 AM CONCRETE INSPECTOR Pulse 81 02/08/2024 8:23 AM CONCRETE INSPECTOR Temperature 36.5 ??C (97.7 ??F) 02/08/2024 8:23 AM CS T Respiratory Rate 17 02/08/2024 8:23 AM CONCRETE INSPECTOR Oxygen Saturation 97% 02/08/2024 8:23 AM CONCRETE INSPECTOR Inhaled Oxygen Concentration - - Weight 54.4 kg (119 lb 14.9 oz) 10/08/2022 8:46 PM CDT Height 165.1 cm (5' 5 ) 02/05/2024 12:4 2 AM CDT Body Mass Index 21.94 10/08/2022 8:46 PM CDT Plan of Treatment Health Maintenance Due Date Last Done Comments Zoster Vaccines (1 of 2) 1991 Annual Medicare Wellness Visit 2006 Dexa Scan (General) 2006 RSV Immunization or 60+ Years (1 - 1-dose 75+ series) 02/25/2016 Pneumococcal Vaccine: 65+ Years (2 of 2 - PPSV23 or PCV20) 04/20/2016 2016 COVID-19 Vaccine (3 - 2023-2 5 season) 2023 05/31/2020, 05/10/2020 Influenza Adult (#1) 2024 12/27/2017 DTaP, Tdap and Td Vaccines ( 2 - Td or Tdap) 10/08/2032 10/08/2022 Meningococcal B Vaccine Aged Out No l onger eligible based on patient's age to complete this topic Meningococcal Vaccine Aged Out No andres elizabeth [...] CBC W/DIFF AUTOMATED Routine 02/07/2024 10:06 AM CONCRETE INSPECTOR BASIC METABOLIC PANEL Routine 02/07/2024 10:06 AM CONCRETE INSPECTOR CBC W/DIFF AUTOMATED STAT 02/06/2024 8:33 AM CONCRETE INSPECTOR BASIC METABOLIC PANEL STAT 02/06/2024 8:33 AM CONCRETE INSPECTOR CBC W/DIFF AUTOMATED STAT 02/05/2024 4:30 AM [...] (ABNORMAL) BASIC METABOLIC PANEL (02/07/2024 10:06 AM CONCRETE INSPECTOR) Only the most recent of3 resultswithin the time period is included. SODIUM S/P/B 136 136 - 145 MMOL/L 02/07/2024 10:38 AM [facility] POTASSIUM S/P/B 3.9 3.5 - 5.1 MMOL/L 02/07/2024 10:38 AM [facility] CHLORIDE S/P/B 106 97 - 115 MMOL/L 02/07/2024 10:38 AM [facility] CO2 23.4 21.0 - 32.0 MMOL/L 02/07/2024 10:38 AM [facility] GLUCOSE 133(H) 74 - 106 MG/DL 02/07/2024 10:38 AM [facility] BUN 22(H) 7 - 18 MG/DL 02/07/2024 10:38 AM [facility] CREATININE S/P/B 0.70 0.55 - 1.02 MG/DL 02/07/2024 10:38 AM [facility] CALCIUM S/P/B 8.9 8.5 - 10.1 MG/DL 02/07/2024 10:38 AM [facility] ANION GAP 6.6 2.0 - 10.0 MMOL/L 02/07/2024 10:38 AM [facility] OSMOLALITY (CALC) 287 MOSM/KG 024 10:38 AM [facility] Comment:REFERENCE RANGE NOT ESTABLISHED GFR ESTIMATE 86(L) >90 ML/MIN/1. 73 M2 02/07/2024 10:38 AM [facility] GFR NOTES GFR REFERENCE S: 02/07/2024 10:38 AM [facility] Comment: THE ESTIMATED GFR IS [...] <15 ml/min/1.73 m2 02/07/2024 10:0 6 AM CONCRETE INSPECTOR us Melba Burkett NP LABORATORY Final Result [facility] [address] [place] [address], [id number] * (ABNORMAL) CBC W/DIFF AUTOMATED (02/07/2024 10:06 AM CONCRETE INSPECTOR) Only the most recent of3 resultswithin the time period is included. WBC 11.37(H) 4.00 - 10.80 x10'3/uL 02/07/2024 10:20 AM [facility] RBC 4.08(L) 4.10 - 5.40 x10'6/uL 02/07/2024 10:20 AM [facility] HGB 11.8(L) 12.0 - 16.0 G/DL 02/07/2024 10:20 AM [facility] HCT 35.2(L) 36.0 - 47.0 % 02/07/2024 10:20 AM [facility] MCV 86.3 78.0 - 100.0 FL 02/07/2024 10:20 AM [facility] MCH 28.9 27.0 - 31.0 PG 02/07/2024 10:20 AM [facility] MCHC 33.5 33.0 - 36.0 G/DL 02/07/2024 10:20 AM [facility] RDW 12.3 11.5 - 14.5 % 02/07/2024 10:20 AM [facility] PLT 324 150 - 350 x10'3/uL 02/07/2024 10:20 AM [facility] MPV 11.1(H) 7.4 - 10.4 FL 02/07/2024 10:20 AM [facility] DIFFERENTIAL TYPE AUTOMATED DIFFERENTIAL 02/07/2024 10:20 AM [facility] SEG NEUTROPHILS 82.1 % 10:20 AM [facility] LYMPHOCYTES 7.2 % 02/07/2024 10:20 AM [facility] MONOCYTES 8.9 % 02/07/2024 10:20 AM [facility] EOSINOPHILS 0.3 % 02/07/2024 10:20 AM [facility] BASOPHILS 0.5 % 02/07/2024 10:20 AM [facility] IMMATURE GRANS % 1.0 % 02/07/20 10:20 AM [facility] ABS. NEUTROPHILS 9.34(H) 1.60 - 8.30 x10'3/uL 02/07/2024 10:20 AM [facility] ABS. LYMPHOCYTES 0.82 0.80 - 4.70 x10'3/uL 02/07/2024 10:20 AM [facility] ABS. MONOCYTES 1.01 0.00 - 1.50 x10'3/uL 02/07/2024 10:20 AM [facility] ABS. EOSINOPHILS 0.03 0.00 - 0.40 x10'3/uL 02/07/2024 10:20 AM [facility] ABS. BASOPHILS 0.06 0.00 - 0.20 x10'3/uL 02/07/2024 10:20 AM CONCRETE INSPECTOR [facility] ABS. IMMATURE GRANULOCYTES 0.11(H) 0.00 - 0.03 x10'3/uL 02/07/2024 10:20 AM CONCRETE INSPECTOR [facility] ABS. NUCLEATED RBC'S 0.00 0.00 - 0.01 x10'3/uL 02/07/2024 10:20 AM CONCRETE INSPECTOR [facility] NRBC % 0.0 % 02/07/2024 10:20 AM CONCRETE INSPECTOR [facility] 02/07/2024 10:0 6 AM CONCRETE INSPECTOR Melba Burkett NP LABORATORY Final Result Performing Organization Address [facility] de Phone Number [facility] [address] [place] [address], [id number] * PHOSPHORUS, INORGANIC PHOSPHATE (02/05/2024 4:30 AM CDT) PHOSPHORUS 2.9 2.5 - 4.9 MG/DL 02/05/2024 5:12 AM CDT [facility] 02/05/2024 4:30 AM CDT Crow NIETO LABORATORY Final Result Performing Organization Address [facility] Co de Phone Number [facility] [address] [place] [address], [id number] * MAGNESIUM (02/05/2024 4:30 AM CDT) MAGNESIUM 2.4 1.6 - 2.6 MG/DL 02/05/2024 5:12 AM CDT [facility] 02/05/2024 4:30 AM CDT us Crow NIETO LABORATORY Final Result [facility] [address] [place] [address], [id number] * XR FOREARM RT 2V (02/05/2024 1:38 AM CDT) Anatomical Region Laterality Modality Forearm Radiographic Ricarda ging 02/05/2024 2:08 AM CDT Impressions 02/05/2024 2:11 AM CDT IMPRESSION: Degenerative changes without plain radiographic evidence of discrete elbow fracture. Referred By: PROVIDER NON-STAFF Interpreted By: Memo Rosario MD, 02/05/2024 2:08 AM Narrative 02/05/2024 2:11 AM CDT [place] [address] Indication: Radial head fracture, pain after fall COMPARISON: 02/04/2024 FINDINGS: 2 views right forearm. ??There are degenerative changes seen at the elbow joint. ??No displaced fat pad is seen. ??No cortical buckling is noted. ??Degenerative changes in the wrist are seen. Procedure Note Malcolm Rosario MD - 02/05/[address] [address] Indication: Radial head fracture, pain after fall [...] 2:13 AM Narrative 02/05/2024 2:14 AM CDT [place] [address] Indication: Shoulder pain and fall COMPARISON: None FINDINGS: 3 views left shoulder. ??There are acromial clavicular and to a lesser extent glenohumeral joint degenerative changes. ??No acute fracture, dislocation, or subluxation is seen. ??Mild hazy opacities in the lungs are noted. Procedure Note Malcolm Rosario MD - 02/05/[address] [address] Indication: Shoulder pain and fall COMPARISON: None [...] 2:12 AM Narrative 02/05/2024 2:12 AM CDT [address] [address] Indication: Fall, knee pain COMPARISON: 10/08/2022 FINDINGS: 2 views left knee demonstrate 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 ??No gross malalignment or large joint effusion is seen. Procedure Note Malcolm Rosario MD - 02/05/[address] [address] Indication: Fall, knee pain COMPARISON: 10/08/2022 FINDINGS: [...] Final Result from Last 3 Months Insurance COUNTRY INSURANCE MEDICARE MEDICARE INSURANCE Advance Directives Documents on File Type Date Recorded Patient Paper Core Machine Operator Expl anation Advance Directives and Living Will 10/11/2018 8:42 AM 02/11/11 LIVING WILL Power of Pipe Layer 05/05/2018 12:25 PM Rama [id number]; Marysol Hollis-1st alternate agent-daughter; Ruiz Reeves-2nd alternate agent-son; Doug Reeves-3rd alternate agent-son; Duong Reeves-4th alternate agent-son Advance Directives and Living Will 01/01/2017 LIVING WILL Advance Directives and Living Will 01/01/2017 POWER OF CABLE MECHANIC FO R HEALTH CARE Advance Directives and Living Will 01/01/2017 SHORT FORM POWER OF CABLE MECHANIC Advance Directives and Living Will 12/16/2016 POWER OF CABLE MECHANIC FO R HEALTH CARE Advance Directives and Living Will 12/16/2016 LIVING WILL Advance Directives and Living Will 12/16/2016 SHORT FORM POWER OF CABLE MECHANIC Advance Directives and Living Will 07/31/2016 POWER OF CABLE MECHANIC FO R HEALTH CARE Advance Directives and Living Will 07/31/2016 SHORT FORM POWER OF CABLE MECHANIC Advance Directives and Living Will 07/31/2016 LIVING WILL Advance Directives and Living Will 12/29/2013 POWER OF CABLE MECHANIC FO R HEALTH CARE Advance Directives and Living Will 12/29/2013 SHORT FORM POWER OF CABLE MECHANIC * DNR (Latest Code Status on File) [...] (HCPOA) * Rapp Daughter Health Care Agent [phone] (Mobile ) Marysol Hollis Daughter First Alternate Health Care Agent Ruiz Reeves Son Second Alternat e Health Care Agent Care Teams Television Repairer Relationship Specialty Start Date End Date Jarret Kwong MD [address] [place] [phone] PCP - General FAMILY PRACTICE 12/27/17 Robbin Urban MD [address] [place] [phone] [address] Judge CARDIOVASCULAR DISEASE 04/24/19
--- OUTSIDE RECORDS SUMMARY | 2024-04-29 09:22 | XMS_ITS | Encounter Summary ---
Author Organization [facility] Address [address] [place] [address]. [place] [address] [place] [address] Care Team Providers Care Aircraft Steel Fabricator Name Role Phone Jarret Kwong MD Primary Care Provider Go Hanna MD Unavailable Unavailable Robbin Urban MD Unavailable [phone] Encounter Details Date Type Department Care Team (Late st Contact Info) Description 09/10/2018 Abstract SFL CONVERSION [address] [address] , Generic Conversion, Social History Tobacco Use [...] documented as of this encounter Care Teams Aircraft Steel Fabricator Relationship Specialty Start Date End Date Jarret Kwong MD [address] [place] [phone] PCP - General FAMILY PRACTICE 12/27/17 Go Hanna MD [address] [place] [address] [place] [phone] INTERVENTIONAL CARDIOLOGY 12/27/17 04/23/19 Robbin Urban MD [address] [place], [place] [address] Troy Slab Worker CARDIOVASCULAR DISEASE 04/24/19 documented as of this encounter
--- OUTSIDE RECORDS SUMMARY | 2024-04-29 09:22 | XMS_ITS | Encounter Summary ---
Author Organization [facility] Address [address] [place] [address]. [place] [address] [place] [address] Care Team Providers Care Line Puller Name Role Phone Jarret Kwong MD Primary Care Provider [phone] Robbin Urban MD Unavailable [phone] Encounter Details Date Type Department Care Team (Late st Contact Info) Description 05/22/2019 Hospital Orders Only [facility] [address] [facility] [place] [id number] Lilia Edmondson, RN Social History Tobacco Use [...] documented as of this encounter Care Teams Line Puller Relationship Specialty Start Date End Date Jarret Kwong MD [address] [place] [phone] PCP - General FAMILY PRACTICE 12/27/17 Robbin Urban MD [address] [place] [address] [place] [employer] Recreation Programmer CARDIOVASCULAR DISEASE 04/24/19 documented as of this encounter
--- OUTSIDE RECORDS SUMMARY | 2024-04-29 09:22 | XMS_ITS | Data Portability ---
Author Organization [facility], [address] [place] [address] Neurology ([place]) Address [address] [place] [address] [address] [place] [address] Care Team Providers Care Employee'S Representative Name Role Phone SHAUNNA MARTINEZ Primary Care Provider Assessment Encounter Date Assessment Date Assessment LastModified [...] to severe mitral regurgitation: Degenerative mitral valve. [place] not to be a candidate for MitraClip. [...] medically. She had repeat stress test in 2016 which was negative for ischemia. ? Follow-up in 3 months ? [email or web address] Not available 10/19/2023 15:18:10 02/28/2024 02/28/2024 HISTORY OF PRESENT ILLNESS: The patient presents for evaluation of possible right radial head fracture after being seen at [place] Emergency Department. Date of injury 02/04/24. The patient has been nonweightbearing to the right upper extremity. Wearing a sling but states she has never had any pain in her right elbow and she is unsure of why she has to immobilize it. The patient fell. She is residing at a half-way in [place]. She is normally in the independent side. [...] Organization Details Last Modified Time Details Appointments None record ed. Lab None record ed. Referral None record ed. Procedures None record ed. Surgeries None record ed. Imaging None record ed. Medication Orders None record ed. Patient TargetsNo targets recorded. Patient InstructionsNo instructions recorded. Reason for Referral None Reported. Results Created Date Observation Date Name Description Value Unit Range Abnormal Flag Note LastModifiedBy Organization Detail LastModifiedTime 10/27/19 24 10/27/2023 sumeet العراقي am ECG, 12 leads min No observ ation record ed. JODEE Sc Only - [facility] E[facility] [address] [address], [place], [address], 11/08/2023 10:05:44 11/18/19 24 04/21/2022 imagi ng/prasanna guerra tic resul t No observ ation record ed. [email or web address] Not Available 11/18/2023 17:09:11 01/06/20 24 01/05/2024 , echoc [facility] [place] [address] [place] [address] Adult Echoca rdiogr am Report Name: Miguel KLEIN Study Date: 2023 : 1939 0[birth year] Gender : Female Age: 83 yrs Height : 62 in Weight : 144 lb BSA: 1.7 m2 Orderi ng Physic jayme: Alex guthrie MD Perfor med By: JEAN Reason For Study: Atrial Fibril lation I48.91 [...] US CARDIO ECHO INTERFACE Sc Only - [facility] [address] [place] [address], [address], 01/06/2024 07:47:16 02/05/20 24 02/05/2024 XR, knee, [address] [facility] [address] [facility] [place] [address] Indica tion: Fall, knee pain COMPAR MALIK: [...] injury or malali gnment Referr ed By: [facility] ER NON-ST AFF Electr onical ly Signed By: Memo Rosario MD on 2:12 AM Interp reted By: Memo Rosario MD, 2:12 AM [facility] Only - [facility] [address] [place], [address], 02/25/2024 09:40:18 02/05/20 24 02/05/2024 XR, shoul richelle [facility] [address] [facility], [place] [address] Indica tion: Should er pain and fall [...] or malali gnment seen Referr ed By: ARLEN ER NON-ST AFF Electr onical ly Signed By: Memo Rosario MD on 2:14 AM Interp reted By: Memo Rosario MD, 2:13 AM [facility] Only - [facility] [address] [place], [address], 02/25/2024 09:40:19 02/28/20 24 02/28/2024 XR, elbow , 3 or more view [facility] [address] [address] Teleph one [phone] Name: Miguel Klein [id number] am Date: 2023 [...] 2:39 PM cc: Page PAGE 1 of [facility] ES 1 [email or web address] Sc Only - [facility] Rad[facility] [address] [place] [address], [address], 02/28/2024 17:08:23 02/28/20 24 02/05/2024 XR, forea rm, 2 view No observ ation record ed. [email or web address] Not Available 2023 18:45:13 Result Notes None recorded. Problems Name Problem SNOMED Code Status Onset Date Resolution Date Notes Provider Name and Address Organization Details Recorded Time Injury of right elbow region 1202067771533 9101 Active 2023 EMILIA Adame-C [address] [place] [address], [phone], [facility] 4 15:59:38 Atrial fibrillatio n 50557074 Active 2023 Renate Martinez [facility], [facility] 4 15:53:03 Mitral valve regurgitati on 37722572 Active 2023 Tez Hammond MD [address] [place] [address], [phone], [place] [facility] 4 15:18:17 Problem Notes None recorded. Procedures Surgical History None recorded. Imaging Results Imaging Date Name Status LastModified by Organization Details LastModified Time 10/27/2023 electrocardiogram, routine ECG, 12 leads min completed JODEE Sc Only - [facility] [address] [facility] [address] [address], [place], [address], 11/08/2023 10:05:44 04/21/2022 imaging/diagnostic result completed [email or web address] Information not available 11/18/2023 17:09:11 01/05/2024 US, echocardiogram completed INTERFACE Sc Onl y - [facility]iology [address] [place] [address], [address], 01/06/2024 07:47:16 02/05/2024 XR, knee, 1 or 2 view completed [email or web address] Sc Only - [facility] [address] [place], [address], 02/25/2024 09:40:18 02/05/2024 XR, shoulder completed [email or web address] Sc Only - [facility] [address] [place], [address], 02/25/2024 09:40:19 02/28/2024 XR, elbow, 3 or more view completed [email or web address] Sc Only - [facility] [address] [place] [address], [address], 02/28/2024 17:08:23 02/05/2024 XR, forearm, 2 view [...] Available Not Available amiodarone 200 mg tablet TAKE 1 TABLET BY MOUTH EVERY 72 HOURS active Not Available Not Available No t Available hydrocodone 5 mg-acetamino phen 325 mg [...] ot Available Vitals Date Recorded Heart rate Provider Name an d Address Organization Details Last Updated DateTime 10/19/2023 86 /min [facility] 10/19/2023 14:35:33 Date Recorded Oxygen saturation Oxygen saturation in Arterial blood by Pulse oximetry Provider Name and Address Organization Details Last Updated DateTime 10/19/2023 99 % 99 % [facility] 10/19/2023 14:35:35 Date Recorded Body weight Provider Name an d Address Organization Details Last Updated DateTime 10/19/2023 51674.67 g [facility] 10/19/2023 14:35:41 Date Recorded Systolic blood pressure Diastolic blood pressure Provider Name and Address Organization Details Last Updated DateTime 10/19/2023 118 mm[Hg] 64 mm[Hg] [facility] 10/19/2023 14:35:30 Social History None recorded. Functional Status None recorded. Mental Status None recorded. Family History Nothing Reported. Medical History No medical history recorded. Gynecological HistoryNo gynecological history recorded. Obstetrics History GPAL:G 0 P 0 0 0 0 Past Encounters Encounter ID Performer Location Encounter Start Date Encounter Closed Date Diagnosis/Indication Diagnosis SNOMED-CT Code Diagnosis ICD10 Code Diagnosis Note [id number] Tez Hammond MD [facility] Specialty Cardiolog y ([place]) [address] [place] [address] 10/19/2023 14:24:09 10/22/2023 13:00:39 Atrial fibrillation 72198177 I48.91 Mitral laya ve regurgitation 69753994 I34.0 [id number] Linnette Sky PA-C [address] [facility] ([place] [address] [place] [address] 02/28/2024 14:47:36 02/29/2024 05:42:50 Injury of right elbow region 1292455103 [id number] S59.901A Fall W19.XXXA Health Concerns Section Related Observation LastModified by Organization Detai ls LastModified Time None Recorded Concern Status LastModified by Organization Details LastModified Time None Recorded Advance Directives Directive None Recorded Payers Encounter Date Sequence Insurance Name Policy Number Policy Walker Covered Member ID Walker Member ID Guarantor Name 10/19/2023 1 [place] Emerald Klein [id number] Emerald Klein 02/28/2024 1 [place] Emerald Klein [id number] Emerald Klein 02/28/2024 2 COUNTRY FINANCIAL (MEDICARE SUPPLEMENT) PLAN F Emerald Klein [id number] Emerald Klein OBGyn Episode No OBEpisode recorded.
== END 2024-04-29 09:17 | disposition home or self-care (01) ==
PROVIDERS: PCP Family Medicine; Visit Provider Family Medicine
DX: R41.82 Altered mental status, unspecified (principal)
CPT/HCPCS: 70551

== ENCOUNTER 2024-05-04 10:25 | Outpatient (CLI) | payer MEDICARE, SELFPAY ==
[2024-05-04 11:07] LABS: Basophils Absolute Auto 0.03 K/mm3 (0.00-0.10); Basophils Percent Auto 0.5 % (0.0-1.0); Eosinophils Absolute Auto 0.11 K/mm3 (0.02-0.50); Eosinophils Percent Auto 1.7 % (1.0-6.0); Hematocrit 34.7 % (35.0-42.0); Hemoglobin 11.1 g/dL (11.7-13.8); Immature Granulocyte Absolute 0.03 K/mm3 (0.00-0.00); Immature Granulocyte Percent A 0.5 % (0.0-0.0); Immature Reticulocyte Fraction 6.6 % (2.0-16.52); Lymphocytes Absolute Auto 0.86 K/mm3 (1.10-4.50); Lymphocytes Percent Auto 13.4 % (18.0-42.0); Mean Corpuscular Hemoglobin 28.5 pg (27.0-31.0); Mean Platelet Volume 10.1 fl (9.2-11.8); Monocytes Absolute Auto 0.45 K/mm3 (0.10-0.90); Neutrophils Absolute Auto 4.93 K/mm3 (1.70-7.20); Neutrophils Percent Auto 76.9 % (50.0-70.0); Platelet Count Result 251 K/mm3 (150-420); Red Cell Distribution Width 13.2 % (11.6-14.4); Reticulocyte Hemoglobin Conten 32.7 pg (28.0-35.0); Reticulocytes Absolute 0.05 M/mm3 (0.02-0.10); White Blood Count 6.4 K/mm3 (4.8-10.8)
--- OUTSIDE RECORDS SUMMARY | 2024-05-04 11:19 | XMS_ITS | Encounter Summary ---
Author Organization [facility] Address [address] [place] [address]. [place] [address] [place] [address] Care Team Providers Care Taxicab Dispatcher Name Role Phone Jarret Kwong MD Primary Care Provider [phone] Go Hanna MD Unavailable Unavailable Robbin Urban MD Unavailable [phone] Encounter Details Date Type Department Care Team (Late st Contact Info) Description 09/10/2018 Abstract SFL CONVERSION [address] [place] [address] , Generic Conversion, Social History Tobacco Use [...] documented as of this encounter Care Teams Taxicab Dispatcher Relationship Specialty Start Date End Date Jarret Kwong MD [address] [place] [phone] PCP - General FAMILY PRACTICE 12/27/17 Go Hanna MD [address] [place] [address] [place] [address] INTERVENTIONAL CARDIOLOGY 12/27/17 04/23/19 Robbin Urban MD [address] [place], [place] [id number] [employer] Test Analyst CARDIOVASCULAR DISEASE 04/24/19 documented as of this encounter
--- OUTSIDE RECORDS SUMMARY | 2024-05-04 11:19 | XMS_ITS | Clinical Summary ---
Author Organization [facility] Address [address] [place] [address]. 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[facility]) Anemia 05/26/2019 Benign paroxysmal positional vertigo 05/26/2019 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 05/26/2019 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 with [...] Vertigo 05/26/2019 Senile osteoporosis 05/22/2019 Colon cancer ([facility]) 11/02/2018 Hemorrhagic shock ([facility]) 10/10/2018 Rotator cuff tear arthropathy of right shoulder 07/15/2018 Shoulder pain with history of repair of rotator cuff 07/11/2018 Mitral regurgitation 01/12/2018 Fracture, vertebral, lumbar closed ([facility]) 01/01/2017 Multiple rib fractures 01/01/2017 Pneumothorax 01/01/2017 Acute sinusitis 09/19/2008 Blood pressure elevated without history of HTN 0 09/19/2008 Tachycardia 09/19/2008 Predominant disturbance of emotions 08/23/2008 Nausea with vomiting 06/11/2008 Localized primary osteoarthritis of lower leg Contusion of chest wall 02/14/2008 Common migraine 01/05/2006 Esophageal reflux 01/05/2006 Ventral hernia 07/27/2005 Depression 12/18/2004 Atrial fibrillation ([facility]) Hypotension Resolved Problems Problem Noted Date Diagnosed Date Resolved Date Need for immunization against influenza 05/26/2019 12/15/2019 Need for varicella vaccine 05/26/2019 0 12/15/2019 Encounter for screening mamm ogram for high-risk patient 01/12/2008 12/15/2019 Encounters Date Type Department Care Team Description 02/05/2024 12:31 AM CDT - 02/08/2024 10:40 AM [facility] [place] [address] [place] [address] Ric Doyle MD Gowda, Chetan N, MD [...] Comments Blood Pressure 135/56 02/08/2024 8:23 AM [facility] Pulse 81 02/08/2024 8:23 AM [facility] Temperature 36.5 ??C (97.7 ??F) 02/08/2024 8:23 AM CS T Respiratory Rate 17 02/08/2024 8:23 AM [facility] Oxygen Saturation 97% 02/08/2024 8:23 AM [facility] Inhaled Oxygen Concentration - - Weight 54.4 [...] CBC W/DIFF AUTOMATED Routine 02/07/2024 10:06 AM [facility] BASIC METABOLIC PANEL Routine 02/07/2024 10:06 AM [facility] CBC W/DIFF AUTOMATED STAT 02/06/2024 8:33 AM [facility] BASIC METABOLIC PANEL STAT 02/06/2024 8:33 AM [facility] CBC W/DIFF AUTOMATED STAT 02/05/2024 4:30 AM [...] (ABNORMAL) BASIC METABOLIC PANEL (02/07/2024 10:06 AM [facility]) Only the most recent of3 resultswithin the time period is included. SODIUM S/P/B 136 136 - 145 MMOL/L 02/07/2024 10:38 AM [facility] POTASSIUM S/P/B 3.9 3.5 - 5.1 MMOL/L 02/07/2024 10:38 AM [facility] CHLORIDE S/P/B 106 97 - 115 MMOL/L 02/07/2024 10:38 AM [facility] CO2 23.4 21.0 - 32.0 MMOL/L 02/07/2024 10:38 AM [facility] GLUCOSE 133(H) 74 - 106 MG/DL 02/07/2024 10:38 AM [facility] BUN 22(H) 7 - 18 MG/DL 02/07/2024 10:38 AM [facility] CREATININE S/P/B 0.70 0.55 - 1.02 MG/DL 02/07/2024 10:38 AM [facility] CALCIUM S/P/B 8.9 8.5 - 10.1 MG/DL 02/07/2024 10:38 AM [facility] ANION GAP 6.6 2.0 - 10.0 MMOL/L 02/07/2024 10:38 AM [facility] OSMOLALITY (CALC) 287 MOSM/KG 024 10:38 AM [facility] Comment:REFERENCE RANGE NOT ESTABLISHED GFR ESTIMATE 86(L) >90 ML/MIN/1. 73 M2 02/07/2024 10:38 AM [facility] GFR NOTES GFR REFERENCE S: 02/07/2024 10:38 AM [facility] Comment: THE ESTIMATED GFR [...] <15 ml/min/1.73 m2 02/07/2024 10:0 6 AM [facility] us Melba Burkett NP LABORATORY Final Result [facility] [address] [place] [phone], [phone] * (ABNORMAL) CBC W/DIFF AUTOMATED (02/07/2024 10:06 AM [facility]) Only the most recent of3 resultswithin the time period is included. WBC 11.37(H) 4.00 - 10.80 x10'3/uL 02/07/2024 10:20 AM [facility] RBC 4.08(L) 4.10 - 5.40 x10'6/uL 02/07/2024 10:20 AM [facility] HGB 11.8(L) 12.0 - 16.0 G/DL 02/07/2024 10:20 AM [facility] HCT 35.2(L) 36.0 - 47.0 % 02/07/2024 10:20 AM [facility] MCV 86.3 78.0 - 100.0 FL 02/07/2024 10:20 AM [facility] MCH 28.9 27.0 - 31.0 PG 02/07/2024 10:20 AM [facility] MCHC 33.5 33.0 - 36.0 G/DL 02/07/2024 10:20 AM [facility] RDW 12.3 11.5 - 14.5 % 02/07/2024 10:20 AM [facility] PLT 324 150 - 350 x10'3/uL 02/07/2024 10:20 AM [facility] MPV 11.1(H) 7.4 - 10.4 FL 02/07/2024 10:20 AM [facility] DIFFERENTIAL TYPE AUTOMATED DIFFERENTIAL 02/07/2024 10:20 AM [facility] SEG NEUTROPHILS 82.1 % 10:20 AM [facility] LYMPHOCYTES 7.2 % 02/07/2024 10:20 AM [facility] MONOCYTES 8.9 % 02/07/2024 10:20 AM [facility] EOSINOPHILS 0.3 % 02/07/2024 10:20 AM [facility] BASOPHILS 0.5 % 02/07/2024 10:20 AM [facility] IMMATURE GRANS % 1.0 % 02/07/20 10:20 AM [facility] ABS. NEUTROPHILS 9.34(H) 1.60 - 8.30 x10'3/uL 02/07/2024 10:20 AM [facility] ABS. LYMPHOCYTES 0.82 0.80 - 4.70 x10'3/uL 02/07/2024 10:20 AM [facility] ABS. MONOCYTES 1.01 0.00 - 1.50 x10'3/uL 02/07/2024 10:20 AM [facility] ABS. EOSINOPHILS 0.03 0.00 - 0.40 x10'3/uL 02/07/2024 10:20 AM [facility] ABS. BASOPHILS 0.06 0.00 - 0.20 x10'3/uL 02/07/2024 10:20 AM [facility] ABS. IMMATURE GRANULOCYTES 0.11(H) 0.00 - 0.03 x10'3/uL 02/07/2024 10:20 AM [facility] ABS. NUCLEATED RBC'S 0.00 0.00 - 0.01 x10'3/uL 02/07/2024 10:20 AM [facility] NRBC % 0.0 % 02/07/2024 10:20 AM [facility] 02/07/2024 10:0 6 AM [facility] Melba Burkett NP LABORATORY Final Result Performing Organization Address [facility] de Phone Number [facility] [address] [place] [address], [phone] * PHOSPHORUS, INORGANIC PHOSPHATE (02/05/2024 4:30 AM CDT) PHOSPHORUS 2.9 2.5 - 4.9 MG/DL 02/05/2024 5:12 AM CDT [facility] 02/05/2024 4:30 AM CDT Crow NIETO LABORATORY Final Result Performing Organization Address [facility] Co de Phone Number [facility] [address] [place] [address], [phone] * MAGNESIUM (02/05/2024 4:30 AM CDT) MAGNESIUM 2.4 1.6 - 2.6 MG/DL 02/05/2024 5:12 AM CDT [facility] 02/05/2024 4:30 AM CDT us Crow NIETO LABORAT[facility] Final Result [facility] [address] [place] [address], [phone] * XR FOREARM RT 2V (02/05/2024 1:38 AM CDT) Anatomical Region Laterality Modality Forearm Radiographic Ricarda ging 02/05/2024 2:08 AM CDT Impressions 02/05/2024 2:11 AM CDT IMPRESSION: Degenerative changes without plain radiographic evidence of discrete elbow fracture. Referred By: PROVIDER NON-STAFF Interpreted By: Memo Rosario MD, 02/05/2024 2:08 AM Narrative 02/05/2024 2:11 AM CDT [place] [address] Indication: Radial head fracture, pain after fall COMPARISON: 02/04/2024 FINDINGS: 2 views right forearm. ??There are degenerative changes seen at the elbow joint. ??No displaced fat pad is seen. ??No cortical buckling is noted. ??Degenerative changes in the wrist are seen. Procedure Note Malcolm Rosario MD - 02/05/[address] [address] Indication: Radial head fracture, pain after fall [...] 2:13 AM Narrative 02/05/2024 2:14 AM CDT [place] [address] Indication: Shoulder pain and fall COMPARISON: None FINDINGS: 3 views left shoulder. ??There are acromial clavicular and to a lesser extent glenohumeral joint degenerative changes. ??No acute fracture, dislocation, or subluxation is seen. ??Mild hazy opacities in the lungs are noted. Procedure Note Malcolm Rosario MD - 02/05/[address] [address] Indication: Shoulder pain and fall COMPARISON: None [...] AM Narrative 02/05/2024 2:12 AM CDT [address] [address] Indication: Fall, knee pain COMPARISON: 10/08/2022 FINDINGS: 2 views left knee demonstrate 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 ??No gross malalignment or large joint effusion is seen. Procedure Note Malcolm Rosario MD - 02/05/[address] [address] Indication: Fall, knee pain COMPARISON: 10/08/2022 FINDINGS: [...] Documents on File Type Date Recorded Patient Manager Audio Expl anation Advance Directives and Living Will 10/11/2018 8:42 AM 02/11/11 LIVING WILL Power of Home Health Cna 05/05/2018 12:25 PM Rama RappVvuet-SQW-scmlwysk; Marysol Hollis-1st alternate agent-daughter; Ruiz Reeves-2nd alternate agent-son; Doug Reeves-3rd alternate agent-son; Duong Reeves-4th alternate agent-son Advance Directives and Living Will 01/01/2017 LIVING WILL Advance Directives and Living Will 01/01/2017 POWER OF BAG LINER FO R HEALTH CARE Advance Directives and Living Will 01/01/2017 SHORT FORM POWER OF BAG LINER Advance Directives and Living Will 12/16/2016 POWER OF BAG LINER FO R HEALTH CARE Advance Directives and Living Will 12/16/2016 LIVING WILL Advance Directives and Living Will 12/16/2016 SHORT FORM POWER OF BAG LINER Advance Directives and Living Will 07/31/2016 POWER OF BAG LINER FO R HEALTH CARE Advance Directives and Living Will 07/31/2016 SHORT FORM POWER OF BAG LINER Advance Directives and Living Will 07/31/2016 LIVING WILL Advance Directives and Living Will 12/29/2013 POWER OF BAG LINER FO R HEALTH CARE Advance Directives and Living Will 12/29/2013 SHORT FORM POWER OF BAG LINER * DNR (Latest Code Status on File) [...] (HCPOA) * Rapp Daughter Health Care Agent [phone] (Mobile ) Marysol Hollis Daughter First Alternate Health Care Agent Ruiz Reeves Son Second Alternat e Health Care Agent Care Teams Cut Off Machine Unloader Relationship Specialty Start Date End Date Jarret Kwong MD [address] [place] [phone] PCP - General FAMILY PRACTICE 12/27/17 Robbin Urban MD [address] [place] [id number] [employer] CARDIOVASCULAR DISEASE 04/24/19
--- OUTSIDE RECORDS SUMMARY | 2024-05-04 11:19 | XMS_ITS | Encounter Summary ---
Author Organization [facility] Address [address] [place] [address]. [place] [address] [place] [address] Care Team Providers Care Concert Or Lecture Hall Manager Name Role Phone Jarret Kwong MD Primary Care Provider Robbin Urban MD Unavailable [phone] Encounter Details Date Type Department Care Team (Late st Contact Info) Description 05/22/2019 Hospital Orders Only [facility] [address] [facility] [place] [phone] Lilia Edmondson, RN Social History Tobacco Use [...] documented as of this encounter Care Teams Concert Or Lecture Hall Manager Relationship Specialty Start Date End Date Jarret Kwong MD [address] [place] [phone] PCP - General FAMILY PRACTICE 12/27/17 Robbin Urban MD [address] [place] [address] [facility] Specialty Technician CARDIOVASCULAR DISEASE 04/24/19 documented as of this encounter
--- OUTSIDE RECORDS SUMMARY | 2024-05-04 11:19 | XMS_ITS | Data Portability ---
Author Organization [facility], [address] [place] [address] [place]rology ([place]) Address [address] [place] [address] [address] [place] [address] Care Team Providers Care Doctor Of Podiatry Name Role Phone SHAUNNA MARTINEZ Primary Care [...] to severe mitral regurgitation: Degenerative mitral valve. Stuart not to be a candidate for MitraClip. [...] radial head fracture after being seen at [place] Emergency Department. Date of injury 02/04/24. The patient has been nonweightbearing to the right upper extremity. Wearing a sling but states she has never had any pain in her right elbow and she is unsure of why she has to immobilize it. The patient fell. She is residing at a penit[facility]iary in [place]. She is normally in the independent side. [...] Ekg [address] [address], [place], [address], 11/08/2023 10:05:44 11/18/19 24 04/21/2022 imagi ng/prasanna guerra tic resul t No observ ation record ed. [email or web address] Not Available 11/18/2023 17:09:11 01/06/20 24 01/05/2024 , [place] [facility] [address] [facility] [place] [address] Adult Echoca rdiogr am Report Name: Miguel KLEIN Study Date: 2023 : 1939 3849 Gender : Female Age: 83 yrs Height [...] US CARDIO ECHO INTERFACE Sc Only - [facility] [address] [place] [address], [address], 01/06/2024 07:47:16 02/05/20 24 02/05/2024 XR, knee, 1 or 2 view [facility] [address] [facility], [place] [address] Indica tion: Fall, knee pain COMPAR MALIK: [...] injury or malali gnment Referr ed By: [facility] NON-ST AFF Electr onical ly Signed By: Memo Rosario MD on 2:12 AM Interp reted By: Memo Rosario MD, 2:12 AM [employer] Only - [facility] Rad [address] [place], [address], 02/25/2024 09:40:18 02/05/20 24 02/05/2024 XR, shoul richelle [facility] [address] [facility], [place] [address] Indica tion: Should er pain and fall [...] reted By: Memo Rosario MD, 2:13 AM [employer] Only - [facility] [address] [place], [address], 02/25/2024 09:40:19 02/28/20 24 02/28/2024 XR, elbow , 3 or more view [facility] [address]st [address] [address] Teleph one [phone] Name: Miguel Klein [id number] am Date: 2023 [...] 2:39 PM cc: Page PAGE 1 of [facility] 1 [email or web address] Sc Only - Sc Radiology [address] [place] [address], [address], 02/28/2024 17:08:23 02/28/20 24 02/05/2024 XR, forea rm, 2 view No observ ation record ed. [email or web address] Not Available 2023 18:45:13 Result Notes None recorded. Problems Name Problem SNOMED Code Status Onset Date Resolution Date Notes Provider Name and Address Organization Details Recorded Time Injury of right elbow region 5127813889258 9101 Active 2023 EMILIA Adame-C [address] [place] [address], [phone], [facility] 4 15:59:38 Atrial fibrillatio n 33887160 Active 2023 Renate Martinez [facility], [facility] 4 15:53:03 Mitral valve regurgitati on 07057548 Active 2023 Tez Hammond MD [address] [place] [address], [phone], [place] [facility] 4 15:18:17 Problem Notes None recorded. Procedures Surgical History None recorded. Imaging Results Imaging Date Name Status LastModified by Organization Details LastModified Time 10/27/2023 electrocardiogram, routine ECG, 12 leads min completed JODEE Sc Only - Sc Cardiology Ekg [address] [facility] [address] [address], [place], [address], 11/08/2023 10:05:44 04/21/2022 imaging/diagnostic result completed [email or web address] Information not available 11/18/2023 17:09:11 01/05/2024 US, echocardiogram completed INTERFACE Sc Onl y - [facility] [address] [place] [address], [address], 01/06/2024 07:47:16 02/05/2024 XR, knee, 1 or 2 view completed [email or web address] Sc Only - Hs Rad [address] [place], [address], 02/25/2024 09:40:18 02/05/2024 XR, shoulder completed [employer] Sc Only - [facility] [address] [place], [address], 02/25/2024 09:40:19 02/28/2024 XR, elbow, 3 or more view completed [email or web address] Sc Only - Sc Radiology [address] [place] [address], [address], 02/28/2024 17:08:23 02/05/2024 XR, forearm, 2 view [...] Details Last Updated DateTime 10/19/2023 86 /min [facility] 10/19/2023 14:35:33 Date Recorded Oxygen saturation Oxygen saturation in Arterial blood by Pulse oximetry Provider Name and Address Organization Details Last Updated DateTime 10/19/2023 99 % 99 % [facility] 10/19/2023 14:35:35 Date Recorded Body weight Provider Name an d Address Organization Details Last Updated DateTime 10/19/2023 03558.67 g [facility] 10/19/2023 14:35:41 Date Recorded Systolic blood pressure Diastolic blood pressure Provider Name and Address Organization Details Last Updated DateTime 10/19/2023 118 mm[Hg] 64 mm[Hg] [facility] 10/19/2023 14:35:30 Social History None recorded. Functional Status None recorded. Mental Status None recorded. Family History Nothing Reported. Medical History No medical history recorded. Gynecological HistoryNo gynecological history recorded. Obstetrics History GPAL:G 0 P 0 0 0 0 Past Encounters Encounter ID Performer Location Encounter Start Date Encounter Closed Date Diagnosis/Indication Diagnosis SNOMED-CT Code Diagnosis ICD10 Code Diagnosis Note [id number] Tez Hammond MD [facility] [place] [address] [place] [address] 10/19/2023 14:24:09 10/22/2023 13:00:39 Atrial fibrillation 24268198 I48.91 Mitral laya ve regurgitation 88565954 I34.0 [id number] Linnette Sky PA-C [address] [facility] [address] [address] 02/28/2024 14:47:36 02/29/2024 05:42:50 Injury of right elbow region 4857959732 7474388 S59.901A Fall W19.XXXA Health Concerns Section Related Observation LastModified by Organization Detai ls LastModified Time None Recorded Concern Status LastModified by Organization Details LastModified Time None Recorded Advance Directives Directive None Recorded Payers Encounter Date Sequence Insurance Name Policy Number Policy Walker Covered Member ID Walker Member ID Guarantor Name 10/19/2023 1 [place] Emerald Klein [id number] Emerald Klein 02/28/2024 1 [place] Emerald Klein [id number] Emerald Klein 02/28/2024 2 COUNTRY FINANCIAL (MEDICARE SUPPLEMENT) PLAN F Emerald Klein [id number] Emerald Klein OBGyn Episode No OBEpisode recorded.
[2024-05-04 12:11] LABS: Erythrocyte Sedimentation Rate 20 mm/hr (0-20)
[2024-05-04 12:22] LABS: Alanine Aminotransferase 14 U/L (14-59); Albumin Level 3.3 g/dL (3.4-5.0); Alkaline Phosphatase 95 U/L (46-116); Anion Gap 5 mmol/L (4-12); Aspartate Amino Transferase 13 U/L (15-37); Bilirubin,Total 0.5 mg/dL (0.00-1.00); Blood Urea Nitrogen 21 mg/dL (7-18); Calcium 8.5 mg/dL (8.5-10.1); Carbon Dioxide 29 mmol/L (21-32); Chloride 102 mmol/L (98-108); Estimated Glomerular Filt Rate 47; Glucose 91 mg/dL (70-99); Osmolality Calculated 285 mOsm/kg (285-295); Potassium 4.5 mmol/L (3.5-5.1); Sodium 136 mmol/L (136-145); Thyroid Stimulating Hormone 1.22 uIU/mL (0.36-3.74); Total Protein 5.8 g/dL (6.4-8.2); Vitamin B12 433 pg/mL (193-986)
== END 2024-05-04 10:26 | disposition home or self-care (01) ==
PROVIDERS: PCP Family Medicine; Visit Provider Family Medicine
DX: R41.82 Altered mental status, unspecified (principal)
CPT/HCPCS: 36415; 80053; 82607; 84443; 85025; 85046; 85652

== ENCOUNTER 2024-05-21 19:34 | Emergency (ER) | payer MEDICARE, SELFPAY ==
[2024-05-21] VITALS (22 sets, daily range): BP systolic 115–171; BP diastolic 64–106; PULSE 94; RESP 20; TEMP 36.4; O2SAT 95–100
--- NOTE | ~2024-05-21 | XR_ITS ---
EXAMINATION: XR chest 1V portable DATE: 05/21/2024 19:50 INDICATION: Cough TECHNIQUE: frontal view of the chest was obtained. COMPARISON: Chest radiograph dated 02/04/2024 FINDINGS: Mild increased initial pattern in the lungs with some perihilar bronchial wall thickening. No focal a irspace opacities, pleural effusion or pneumothorax. Heart size is normal. Multi component S-shaped s coliosis of the thoracic and upper lumbar spine with moderate spondylosis. IMPRESSION: 1. Increased interstitial pattern with perihilar bronchial wall thickening but without focal airspace consolidation which could be due to bronchitis/bronchiolitis or mild pulmonary edema. Reviewed, dictated and finalized at location A. V/STOL LANDING SIGNAL OFFICER IMPRESSION: 1. Increased interstitial pattern with perihilar bronchial wall thickening but without focal airspace consolidation which could be due to bronchitis/bronchiol itis or mild pulmonary edema.
--- OUTSIDE RECORDS SUMMARY | 2024-05-21 19:37 | XMS_ITS | Data Portability ---
Author Organization [facility], [address] [place] [address] Neurology ([place]) Address [address] [place] [address] Care Team Providers Care Carpentry Teacher Name Role Phone SHAUNNA MARTINEZ Primary Care Provider [phone] Assessment Encounter Date Assessment Date Assessment LastModified by Organization Details LastModified Time 10/19/2023 10/19/2023 83 year-old female here for follow-up. Previous patient of . She has history of paroxysmal atrial fibrillation, hyperlipidemia, depression, mitral regurgitation. 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 She had an echo done in September 2019 that showed normal LV systolic function and moderate posteriorly directed mitral valve regurgitation. Since last visit she has mostly done okay. She is now in assisted living. She has been walking with a walker a fair bit. She is developed lower extremity edema however. Denies chest pain or worsening dyspnea or dizziness syncope. EKG shows sinus rhythm recheck echo in the setting of edema. Trial Lasix 40 mg daily for 5 days Assessment and plan 83-year-old female here for follow-up. 1. Paroxysmal atrial fibrillation: She is in sinus rhythm today. She is on amiodarone once every 3 days for rhythm control. Continue Eliquis 2.5 mg twice daily for thromboembolic stroke prophylaxis. If she develops anemia on this she will be a candidate for Watchman left atrial appendage occluder device. 2. Moderate to severe mitral regurgitation: Degenerative mitral valve. [place] not to be a candidate for MitraClip. She does not want open heart surgery. She has no symptoms suggestive of heart failure at this time. Echo shows normal LV function and moderate mitral regurgitation. Recheck echo in the setting of lower extremity edema. Try Lasix 20 mg daily for 5 days. 3. Ischemia evaluation. She had abnormal stress test in 2013 but was treated medically. She had repeat stress test in 2017 which was negative for ischemia. Follow-up in 3 months terence Not available 10/19/2023 15:18:10 02/28/2024 02/28/2024 HISTORY OF PRESENT ILLNESS: The patient presents for evaluation of possible right radial head fracture after being seen at [facility] Emergency Department. Date of injury 02/04/24. The patient has been nonweightbearing to the right upper extremity. Wearing a sling but states she has never had any pain in her right elbow and she is unsure of why she has to immobilize it. The patient fell. She is residing at a assisted in [place]. She is normally in the independent side. [...] LastModifiedBy Organization Detail LastModifiedTime 10/27/19 24 10/27/2023 sissy cruz am, sumeet ne ECG, 12 leads min No observ ation record ed. JODEE [facility] [address] [address], [place], [address], 11/08/2023 10:05:44 11/18/19 24 04/21/2022 imagi ng/prasanna guerra tic resul t No observ ation record ed. [email or web address] Not Available 11/18/2023 17:09:11 01/06/20 24 01/05/2024 , [place] [facility] [place] [address] [facility] [place] [address] Adult [place] rdiogr Report Name: Miguel KLEIN jesus Kuhn Study Date: 2023 : 1939 [id number] Gender : Female Age: 83 yrs Height [...] color flow Dopple r). The study was [facility]. LEFT VENTRI BRET: The left ventri cular [...] T) Index: 53.7 Electr onical ly signed by:[facility] nirmala guthrie MD 2023 06:46 AM cc: Miguel Klein 2023 US CARDIO ECHO INTERFACE [facility] Only - [facility] [address] [facility], [place], [address], 01/06/2024 07:47:16 02/05/20 24 02/05/2024 XR, knee, 1 or 2 view [facility] [address] [facility] [address] Indica tion: Fall, knee pain COMPAR MALIK: [...] reted By: Memo Rosario MD, 2:12 AM [place] Only - [facility] [address] [place], [address], 02/25/2024 09:40:18 02/05/20 24 02/05/2024 XR, shoul richelle [facility] - [facility] [address] [facility], [facility] [place] [address] Indica tion: Should er pain and fall [...] reted By: Memo Rosario MD, 2:13 AM [place] Only - [facility] [address] [place], [address], 02/25/2024 09:40:19 02/28/20 24 02/28/2024 XR, elbow , 3 or more view [facility] [address] [address] Teleph one [phone] Name: Miguel Klein [id number] am Date: 2023 [...] 2:39 PM cc: Page PAGE 1 of [facility] ES 1 [email or web address] [facility] - [facility] [address] [place] [address], [address], 02/28/2024 17:08:23 02/28/20 24 02/05/2024 XR, forea rm, 2 view No observ ation record ed. [email or web address] Not Available 2023 18:45:13 Result Notes None recorded. Problems Name Problem SNOMED Code Status Onset Date Resolution Date Notes Provider Name and Address Organization Details Recorded Time Injury of right elbow region 3104844067864 9101 Active 2023 EMILIA Adame-Harinder [address] [place] [address], [address], [facility] 4 15:59:38 Atrial fibrillatio n 96298623 Active 2023 Renate Martinez [facility] 4 15:53:03 Mitral valve regurgitati on 16523283 Active 2023 Tez Hammond MD [address] [place], [address], [facility] 4 15:18:17 Problem Notes None recorded. Procedures Surgical History None recorded. Imaging Results Imaging Date Name Status LastModified by Organization Details LastModified Time 10/27/2023 electrocardiogram, routine ECG, 12 leads min completed [facility] [address] [facility] [address] [address], [place], [address], 11/08/2023 10:05:44 04/21/2022 imaging/diagnostic result completed 601 Information not available 11/18/2023 17:09:11 01/05/2024 US, echocardiogram completed INTERFACE [facility] On[facility] y [facility] [address] [place] [address], [address], 01/06/2024 07:47:16 02/05/2024 XR, knee, 1 or 2 [facility] [address] [place], [address], 02/25/2024 09:40:18 02/05/2024 XR, shoulder [facility] - [facility] [address] [place], [address], 02/25/2024 09:40:19 02/28/2024 XR, elbow, 3 or more view completed [email or web address] [facility] Only - [facility] [address] [place] [address], [address], 02/28/2024 17:08:23 02/05/2024 XR, forearm, 2 view [...] 4 86 /min 99 % 99 % [address]34[address].6 7 g 118 mm[Hg] 64 mm[Hg] Olga Solano [facility] 4 14:35:30 Social History None recorded. Functional Status None recorded. Mental Status None recorded. Family History Nothing Reported. Medical History No medical history recorded. Gynecological HistoryNo gynecological history recorded. Obstetrics History GPAL:G 0 P 0 0 0 0 Past Encounters Encounter ID Performer Location Encounter Start Date Encounter Closed Date Diagnosis/Indication Diagnosis SNOMED-CT Code Diagnosis ICD10 Code Diagnosis Note [id number] Tez Hammond MD [facility] Specialty Cardiolog y ([place]) [address] [place] [address] 10/19/2023 14:24:09 10/22/2023 13:00:39 Atrial fibrillation 04343085 I48.91 Mitral laya ve regurgitation 20482370 I34.0 [id number] Linnette Sky PA-C 800 [facility] Orthopedi cs ([place]) [address] [place] [address] 02/28/2024 14:47:36 02/29/2024 05:42:50 Injury of right elbow region 0814589110 4461995 S59.901A Fall W19.XXXA Health Concerns Section Related Observation LastModified by Organization Detai ls LastModified Time None Recorded Concern Status LastModified by Organization Details LastModified Time None Recorded Advance Directives Directive None Recorded Payers Encounter Date Sequence Insurance Name Policy Number Policy Walker Covered Member ID Walker Member ID Guarantor Name 10/19/2023 1 [place] Emerald Klein [id number] Emerald Klein 02/28/2024 1 [place] Emerald Klein [id number] Emerald Klein 02/28/2024 2 COUNTRY FINANCIAL (MEDICARE SUPPLEMENT) PLAN F Emerald Klein [id number] Emerald Klein OBGyn Episode No OBEpisode recorded.
--- NOTE | 2024-05-21 19:41 | ED_ITS ---
HPI - Pediatric SOB/Dyspnea General Stated Complaint: upper respiratory Time Seen by Provider: 05/21/24 19:41 Related Data Home Medications ?Medication ?Instructions ?Recorded ?Confirmed ?Last Taken ?Type acetaminophen 325 mg tablet 325 mg PO DAILY 01/27/24 02/08/24 01/30/24 History (Tylenol) apixaban 2.5 mg tablet (Eliquis) 2.5 mg PO BID 01/27/24 02/08/24 02/08/24 08:30 History aripiprazole 15 mg tablet (Abilify) 5 mg PO DAILY 01/27/24 02/08/24 02/08/24 08:29 History aspirin 81 mg tablet,delayed 81 mg PO DAILY 01/27/24 02/08/24 01/30/24 History release (Adult Low Dose Aspirin) calcium 600 mg (as 1 tablet PO DAILY 01/27/24 02/08/24 Unknown History carbonate)-vitamin D3 10 mcg (400 unit) tablet (Calcium 600 + D(3)) docusate sodium 100 mg tablet 100 mg PO BID 01/27/24 02/08/24 01/30/24 History (Stool Softener) duloxetine 60 mg capsule,delayed 60 mg PO DAILY 01/27/24 02/08/24 02/08/24 08:29 History release (Cymbalta) escitalopram oxalate 10 mg tablet 10 mg PO DAILY 01/27/24 02/08/24 01/30/24 History (Lexapro) ferrous sulfate 324 mg (65 mg 324 mg PO BID 01/27/24 02/08/24 01/30/24 History iron) tablet,delayed release gabapentin 100 mg capsule 100 mg PO TID 01/27/24 02/08/24 02/08/24 08:30 History (Neurontin) lactulose 10 gram/15 mL oral 20 ml PO QHS PRN Constipation 01/27/24 02/08/24 01/29/24 History solution (Enulose) magnesium oxide 400 mg (241.3 mg 400 mg PO BID 01/27/24 02/08/24 01/30/24 Hi story magnesium) tablet (MagOx) metoprolol succinate 25 mg 25 mg PO DAILY 01/27/24 02/08/24 02/08/24 08:30 History tablet,extended release 24 hr (Toprol XL) omeprazole 20 mg capsule,delayed 20 mg PO DAILY 01/27/24 02/08/24 Unknown History release oxybutynin chloride 5 mg tablet 2.5 mg PO BID 01/27/24 02/08/24 01/30/24 History polyethylene glycol 3350 17 17 g PO PRN PRN Constipation 01/27/24 02/08/24 01/30/24 History gram/dose oral powder (Miralax) sucralfate 1 gram tablet (Carafate) 1 g PO QID 01/27/24 02/08/24 01/30/24 History sumatriptan succinate 50 mg tablet 50 mg PO PRN PRN Headache 01/27/24 02/08/24 01/28/24 History (Imitrex) lidocaine HCl 4 % topical patch 1 patch topical DAILY 02/08/24 02/08/24 Unknown History ondansetron HCl 4 mg tablet 4 mg PO Q6H PRN Nausea 02/08/24 02/08/24 Unknown History sennosides 8.6 mg-docusate sodium 1 tablet PO DAILY PRN Constipation 02/08/24 02/08/24 02/07/24 08:17 History 50 mg tablet (Laxative Stool Softener With Senna) Allergies Allergy/AdvReac Type Severity Reaction Status Date / Time No Known Allergies Allergy Verified 01/27/24 06:19 [facility], [facility] Past Medical History Medical History (Updated 02/17/24 @ 09:34 by Helena Wynne APRN) C2 cervical fracture Gastric perforation Atrial fibrillation Anxiety and depression Chronic anemia PUD (peptic ulcer disease) Surgical History Surgical History History of knee replacement Social History Social History Smoking status: Never smoker Alcohol intake: never Substance use: never Substance use type: does not use Do You Feel Safe in your Home?: Yes Lack of Transportation: No Lack of Food: Never True Current Housing: I Have Housing Concerned About Future Housing: No Difficulty Paying Gas/Electric Bills: No Difficulty Paying for Meds: No Currently Unemployed: No Education: Bachelor's Degree Difficulty w/ Childcare or Family Care: No Spiritual care concerns: No Discharge Plan Discharge Patient Language: Gibraltarian Prescriptions: No Action acetaminophen [Tylenol] 325 mg tablet 325 mg PO DAILY aspirin [Adult Low Dose Aspirin] 81 mg tablet,delayed release (DR/EC) 81 mg PO DAILY magnesium oxide [MagOx] 400 mg (241.3 mg magnesium) tablet 400 mg PO BID omeprazole 20 mg capsule,delayed release(DR/EC) 20 mg PO DAILY metoprolol succinate [Toprol XL] 25 mg tablet extended release 24 hr 25 mg PO DAILY oxybutynin chloride 5 mg tablet 2.5 mg PO BID docusate sodium [Stool Softener] 100 mg tablet 100 mg PO BID escitalopram oxalate [Lexapro] 10 mg tablet 10 mg PO DAILY aripiprazole [Abilify] 15 mg tablet 5 mg PO DAILY Rx Instructions: Dose is 5 mg not 15 mg duloxetine [Cymbalta] 60 mg capsule,delayed release(DR/EC) 60 mg PO DAILY calcium carbonate-vitamin D3 [Calcium 600 + D(3)] 600 mg-10 mcg (400 unit) tablet 1 tablet PO DAILY ferrous sulfate 324 mg (65 mg iron) tablet,delayed release (DR/EC) 324 mg PO BID Eliquis 2.5 mg tablet 2.5 mg PO BID sucralfate [Carafate] 1 gram tablet 1 g PO QID sumatriptan succinate [Imitrex] 50 mg tablet 50 mg PO PRN PRN (Reason: Headache) Rx Instructions: take one tablet by mouth every day as needed for headache. max of 200 mg. gabapentin [Neurontin] 100 mg capsule 100 mg PO TID polyethylene glycol 3350 [Miralax] 17 gram/dose powder 17 g PO PRN PRN (Reason: Constipation) Rx Instructions: Mix 17 gm (one cap full) in 8 oz of liquid and drink daily as needed for constipation. lactulose [Enulose] 10 gram/15 mL solution 20 ml PO QHS PRN (Reason: Constipation) cyclobenzaprine 10 mg Tablet 10 mg PO TID Qty: 1 0RF amiodarone [Pacerone] 200 mg tablet 200 mg PO Q72H Qty: 1 0RF Rx Instructions: every three days for atrial fibrillation. sennosides-docusate sodium [Lax Stool Softener With Senna] 8.6-50 mg Tablet 1 tablet PO DAILY PRN (Reason: Constipation) lidocaine HCl 4 % Adhesive Patch,Medicated 1 patch TOPICAL DAILY ondansetron HCl 4 mg Tablet 4 mg PO Q6H PRN (Reason: Nausea) lorazepam 0.5 mg Tablet 0.5 mg PO BID Qty: 7 0RF amoxicillin-pot clavulanate [Augmentin] 500-125 mg Tablet 1 tablet PO Q12HR Qty: 5 0RF hydrocodone-acetaminophen 5-325 mg Tablet 1 tablet PO Q6H PRN (Reason: Pain Rated 7-10) Qty: 7 0RF calcium carbonate-vitamin D3 [Oyster Shell Calcium-Vit D3] 250 mg-3.125 mcg (125 unit) Tablet 1 tablet PO DAILY@0800 Qty: 30 0RF lidocaine [Lidoderm] 5 % Adhesive Patch,Medicated 1 patch transdermal DAILY Qty: 15 0RF Follow-up/Referrals: Varghese,MD Jarret [Primary Care Provider] -
--- NOTE | 2024-05-21 19:49 | ED_ITS ---
HPI - General Adult General Chief complaint: Upper Respiratory Infection Stated complaint: upper respiratory Time Seen by Provider: 05/21/24 19:41 Source: patient Mode of arrival: ambulatory Limitations: no limitations History of Present Illness HPI narrative: 84 years old white female came from assisting living with coughing and spitting started yesterday. Patient reports a lot of people where she live having similar symptoms. Patient denies any fever, chills, nausea, vomiting, chest pain, shortness of breath. Patient tested positive for COVID 1 month ago. . History of anxiety, depression, Chronic anemia, peptic ulcer disease, history of colon cancer, history of C to cervical fracture Patient denies any fever, chills, nausea, vomiting, chest pain, shortness of breath or headache. Related Data Home Medications ?Medication ?Instructions ?Recorded ?Confirmed ?Last Taken ?Type acetaminophen 325 mg tablet 325 mg PO DAILY 01/27/24 02/08/24 01/30/24 History (Tylenol) apixaban 2.5 mg tablet (Eliquis) 2.5 mg PO BID 01/27/24 02/08/24 02/08/24 08:30 History aripiprazole 15 mg tablet (Abilify) 5 mg PO DAILY 01/27/24 02/08/24 02/08/24 08:29 History aspirin 81 mg tablet,delayed 81 mg PO DAILY 01/27/24 02/08/24 01/30/24 History release (Adult Low Dose Aspirin) calcium 600 mg (as 1 tablet PO DAILY 01/27/24 02/08/24 Unknown History carbonate)-vitamin D3 10 mcg (400 unit) tablet (Calcium 600 + D(3)) docusate sodium 100 mg tablet 100 mg PO BID 01/27/24 02/08/24 01/30/24 History (Stool Softener) duloxetine 60 mg capsule,delayed 60 mg PO DAILY 01/27/24 02/08/24 02/08/24 08:29 History release (Cymbalta) escitalopram oxalate 10 mg tablet 10 mg PO DAILY 01/27/24 02/08/24 01/30/24 History (Lexapro) ferrous sulfate 324 mg (65 mg 324 mg PO BID 01/27/24 02/08/24 01/30/24 History iron) tablet,delayed release gabapentin 100 mg capsule 100 mg PO TID 10/02/08/24 02/08/24 08:30 History (Neurontin) lactulose 10 gram/15 mL oral 20 ml PO QHS PRN Constipation 01/27/24 02/08/24 01/29/24 History solution (Enulose) magnesium oxide 400 mg (241.3 mg 400 mg PO BID 01/27/24 02/08/24 01/30/24 History magnesium) tablet (MagOx) metoprolol succinate 25 mg 25 mg PO DAILY 01/27/24 02/08/24 02/08/24 08:30 History tablet,extended release 24 hr (Toprol XL) omeprazole 20 mg capsule,delayed 20 mg PO DAILY 01/27/24 02/08/24 Unknown History release oxybutynin chloride 5 mg tablet 2.5 mg PO BID 01/27/24 02/08/24 01/30/24 History polyethylene glycol 3350 17 17 g PO PRN PRN Constipation 01/27/24 02/08/24 01/30/24 History gram/dose oral powder (Miralax) sucralfate 1 gram tablet (Carafate) 1 g PO QID 01/27/24 02/08/24 01/30/24 History sumatriptan succinate 50 mg tablet 50 mg PO PRN PRN Headache 01/27/24 02/08/24 01/28/24 History (Imitrex) lidocaine HCl 4 % topical patch 1 patch topical DAILY 02/08/24 02/08/24 Unknown History ondansetron HCl 4 mg tablet 4 mg PO Q6H PRN Nausea 02/08/24 02/08/24 Unknown History sennosides 8.6 mg-docusate sodium 1 tablet PO DAILY PRN Constipation 02/08/24 02/08/24 02/07/24 08:17 History 50 mg tablet (Laxative Stool Softener With Senna) Allergies Allergy/AdvReac Type Severity Reaction Status Date / Time No Known Allergies Allergy Verified 05/21/24 20:19 Review of Systems 2 Review of Systems: All systems reviewed & are unremarkable except as noted in HPI and below PMFSH Past Medical History Medical History C2 cervical fracture Gastric perforation Atrial fibrillation Anxiety and depression Chronic anemia PUD (peptic ulcer disease) Surgical History Surgical History History of knee replacement Social History Social History Smoking status: Never smoker Alcohol intake: never Substance use: never Substance use type: does not use Do You Feel Safe in your Home?: Yes Lack of Transportation: No Lack of Food: Never True Current Housing: I Have Housing Concerned About Future Housing: No Difficulty Paying Gas/Electric Bills: No Difficulty Paying for Meds: No Currently Unemployed: No Education: Bachelor's Degree Difficulty w/ Childcare or Family Care: No Spiritual care concerns: No Exam 2 Narrative: General appearance: Well-developed, well-nourished, slightly anxious Skin: Normal color Head: Normocephalic, nontraumatic Eyes: Clear conjunctiva ENT: Oropharynx normal, ears normal, nose normal Neck: Supple, nontender Chest and respiratory: Airway patent, no respiratory distress, no accessory muscle use Heart: Regular rate/rhythm Abdomen: Soft, nontender, no organomegaly, quiet bowel sounds Vascular: Normal peripheral pulses, normal capillary refill. Musculoskeletal: Normal range of motion, nontender back Neurologic: Alert and oriented ?3, CAGE UNLOADER is normal as tested, no gross motor deficit Course Vital Signs Vital signs: Vital Signs Oxygen Delivery Room Air 05/21/24 19:34 Temperature 36.4 C L 05/21/24 19:40 Pulse Rate 94 05/21/24 19:40 Respiratory Rate 20 05/21/24 19:40 Blood Pressure 115/69 05/21/24 20:46 Pulse Oximetry 96 05/21/24 21:02 Oxygen Delivery Room Air 05/21/24 19:40 Medical Decision Making [facility] Narrative Medical decision making narrative: patient came to the ED with coughing and spitting Vital signs showing blood pressure 171/106 otherwise within normal limit physical examination showing anxious lady otherwise unremarkable Differential diagnosis include upper respiratory viral infection, anxiety like symptoms, Blood workup today includes CBC, CMP, blood culture, lactic acid, CRP showed sodium of 133, BnP 9O2 Chest x-ray showed Patient tested negative for COVID, flu and RSV Differential Diagnosis Differential Diagnosis: as above Vital Signs Vital Signs: Vital Signs Oxygen Delivery Room Air 05/21/24 19:34 Temperature 36.4 C L 05/21/24 19:40 Pulse Rate 94 05/21/24 19:40 Respiratory Rate 20 05/21/24 19:40 Blood Pressure 115/69 05/21/24 20:46 Pulse Oximetry 96 05/21/24 21:02 Oxygen Delivery Room Air 05/21/24 19:40 Lab Data 05/21/24 20:47 05/21/24 20:48 Labs: Lab Results 05/21/24 05/21/24 05/21/24 Range/Units 19:42 20:15 20:47 WBC 7.0 (4.8-10.8) K/mm3 RBC 4.17 L (4.20-5.40) M/mm3 Hgb 11.9 (11.7-13.8) g/dL Hct 35.8 (35.0-42.0) % MCV 85.9 (78.0-102.0) fL MCH 28.5 (27.0-31.0) pg MCHC 33.2 (32-36) g/dL RDW 12.9 (11.6-14.4) % Plt Count 274 (150-420) K/mm3 MPV 10.8 (9.2-11.8) fl Immature Gran % (Auto) 0.3 H (0.0-0.0) % Neut % (Auto) 74.6 H (50.0-70.0) % Lymph % (Auto) 16.5 L (18.0-42.0) % Wilkes % (Auto) 7.6 (2.0-11.0) % Eos % (Auto) 0.7 L (1.0-6.0) % Baso % (Auto) 0.3 (0.0-1.0) % Lymph # (Auto) 1.15 (1.10-4.50) K/mm3 Wilkes # (Auto) 0.53 (0.10-0.90) K/mm3 Eos # (Auto) 0.05 (0.02-0.50) K/mm3 Baso # (Auto) 0.02 (0.00-0.10) K/mm3 Abs Immat Gran (auto) 0.02 H (0.00-0.00) K/mm3 Absolute Neuts (auto) 5.21 (1.70-7.20) K/mm3 Absolute Nucleated RBC 0.00 (0.00-0.00) K/mm3 Nucleated RBC % 0.0 (0-0.0) % PT 10.8 (9.50-12.1) Seconds INR 1.0 APTT 29.3 (23.9-30.70) Sec Sodium (136-145) mmol/L Potassium (3.5-5.1) mmol/L Chloride (98-108) mmol/L Carbon Dioxide (21-32) mmol/L Anion Gap (4-12) mmol/L BUN (7-18) mg/dL Creatinine (0.55-1.02) mg/dL Estim Creat Clear Calc ml/min Estimated GFR (59 - ) Glucose (70-99) mg/dL Calculated Osmolality (285-295) mOsm/kg Lactic Acid (0.4-2.0) mmol/L Calcium (8.5-10.1) mg/dL Total Bilirubin (0.00-1.00) mg/dL AST (15-37) U/L ALT (14-59) U/L Alkaline Phosphatase (46-116) U/L C-Reactive Protein (0.0-0.9) mg/dL NT-Pro-B Natriuret Pep (0-450) pg/mL Total Protein (6.4-8.2) g/dL Albumin (3.4-5.0) g/dL Urine Color Light yellow (Yellow) Urine Appearance Cloudy A (Clear) Urine pH 7.0 (5.0-8.0) Ur Specific Cost 1.015 (1.010-1.020) Urine Protein Negative (Negative) Urine Glucose (UA) Negative (Negative) Urine Ketones Negative (Negative) Ur Blood (Man) Trace-intact H (Negative) Urine Nitrate Negative (Negative) Urine Bilirubin Negative (Negative) Urine Urobilinogen 0.2 (0.2-1.0) mg/dL Leukocyte Esterase Rfl 2+ H (Negative) JHON/UL Urine WBC 51-75 H (0-3) /hpf Urine WBC Clumps Present H (None) /hpf Ur Squamous Epith Cells Few (Few) /hpf Amorphous Sediment Moderate H (None) Urine Bacteria 2+ H (None) /hpf Hyaline Casts 5-9 H (None) /lpf Urine Mucus Few H /lpf Influenza A (RT-PCR) Negative (Negative) Influenza B (RT-PCR) Negative (Negative) RSV (RT-PCR) Negative (Negative) SARS-CoV-2 RNA (RT-PCR) Negative (Negative) 05/21/24 Range/Units 20:48 WBC (4.8-10.8) K/mm3 RBC (4.20-5.40) M/mm3 Hgb (11.7-13.8) g/dL Hct (35.0-42.0) % MCV (78.0-102.0) fL MCH (27.0-31.0) pg MCHC (32-36) g/dL RDW (11.6-14.4) % Plt Count (150-420) K/mm3 MPV (9.2-11.8) fl Immature Gran % (Auto) (0.0-0.0) % Neut % (Auto) (50.0-70.0) % Lymph % (Auto) (18.0-42.0) % Wilkes % (Auto) (2.0-11.0) % Eos % (Auto) (1.0-6.0) % Baso % (Auto) (0.0-1.0) % Lymph # (Auto) (1.10-4.50) K/mm3 Wilkes # (Auto) (0.10-0.90) K/mm3 Eos # (Auto) (0.02-0.50) K/mm3 Baso # (Auto) (0.00-0.10) K/mm3 Abs Immat Gran (auto) (0.00-0.00) K/mm3 Absolute Neuts (auto) (1.70-7.20) K/mm3 Absolute Nucleated RBC (0.00-0.00) K/mm3 Nucleated RBC % (0-0.0) % PT (9.50-12.1) Seconds INR APTT (23.9-30.70) Sec Sodium 133 L (136-145) mmol/L Potassium 3.8 (3.5-5.1) mmol/L Chloride 98 (98-108) mmol/L Carbon Dioxide 24 (21-32) mmol/L Anion Gap 11 (4-12) mmol/L BUN 16 (7-18) mg/dL Creatinine 0.95 (0.55-1.02) mg/dL Estim Creat Clear Calc 31 ml/min Estimated GFR 56 L (59 - ) Glucose 129 H (70-99) mg/dL Calculated Osmolality 279 L (285-295) mOsm/kg Lactic Acid 1.4 (0.4-2.0) mmol/L Calcium 8.7 (8.5-10.1) mg/dL Total Bilirubin 0.4 (0.00-1.00) mg/dL AST 10 L (15-37) U/L ALT 13 L (14-59) U/L Alkaline Phosphatase 116 (46-116) U/L C-Reactive Protein 0.5 (0.0-0.9) mg/dL NT-Pro-B Natriuret Pep 902 H (0-450) pg/mL Total Protein 6.4 (6.4-8.2) g/dL Albumin 3.2 L (3.4-5.0) g/dL Urine Color (Yellow) Urine Appearance (Clear) Urine pH (5.0-8.0) Ur Specific Cost (1.010-1.020) Urine Protein (Negative) Urine Glucose (UA) (Negative) Urine Ketones (Negative) Ur Blood (Man) (Negative) Urine Nitrate (Negative) Urine Bilirubin (Negative) Urine Urobilinogen (0.2-1.0) mg/dL Leukocyte Esterase Rfl (Negative) JHON/UL Urine WBC (0-3) /hpf Urine WBC Clumps (None) /hpf Ur Squamous Epith Cells (Few) /hpf Amorphous Sediment (None) Urine Bacteria (None) /hpf Hyaline Casts (None) /lpf Urine Mucus /lpf Influenza A (RT-PCR) (Negative) Influenza B (RT-PCR) (Negative) RSV (RT-PCR) (Negative) SARS-CoV-2 RNA (RT-PCR) (Negative) ABG Data ABG results: 05/21/24 20:48 Puncture Site Right radial ABG pH 7.55 H ABG pCO2 25.1 L ABG pO2 82.3 ABG HCO3 21.6 L ABG O2 Saturation 96.5 ABG Base Excess 0.7 Oxyhemoglobin 96.1 O2 Delivery Device Room air O2 Liters/Min 0.0 Imaging Data Radiologist's impression: Impressions Chest X-Ray 05/21/24 20:12 IMPRESSION: 1. Increased interstitial pattern with perihilar bronchial wall thickening but without focal airspace consolidation which could be due to bronchitis/bronchiolitis or mild pulmonary edema. Critical Care Time Critical Care Time Critical Care Time: No Discharge Plan Discharge Clinical Impression: Cough, Urinary tract infection Patient Disposition: NH Senior Care/Asst Living Condition: Stable Instructions: Antibiotic Form, Urinary Tract Infection in Women (DC), Acute Cough (ED) Additional Instructions: Return if symptoms are worsening , call your family physician for appointment, take Tylenol as as needed for aches and pain, continue home medications. Patient Language: Maori Prescriptions: New benzonatate 100 mg capsule 100 mg PO TID PRN (Reason: cough) Qty: 30 0RF nitrofurantoin monohyd/m-cryst [Macrobid] 100 mg capsule 100 mg PO Q12H 5 Days Qty: 10 0RF Rx Instructions: must administer with a meal/food No Action acetaminophen [Tylenol] 325 mg tablet 325 mg PO DAILY aspirin [Adult Low Dose Aspirin] 81 mg tablet,delayed release (DR/EC) 81 mg PO DAILY magnesium oxide [MagOx] 400 mg (241.3 mg magnesium) tablet 400 mg PO BID omeprazole 20 mg capsule,delayed release(DR/EC) 20 mg PO DAILY metoprolol succinate [Toprol XL] 25 mg tablet extended release 24 hr 25 mg PO DAILY oxybutynin chloride 5 mg tablet 2.5 mg PO BID docusate sodium [Stool Softener] 100 mg tablet 100 mg PO BID escitalopram oxalate [Lexapro] 10 mg tablet 10 mg PO DAILY aripiprazole [Abilify] 15 mg tablet 5 mg PO DAILY Rx Instructions: Dose is 5 mg not 15 mg duloxetine [Cymbalta] 60 mg capsule,delayed release(DR/EC) 60 mg PO DAILY calcium carbonate-vitamin D3 [Calcium 600 + D(3)] 600 mg-10 mcg (400 unit) tablet 1 tablet PO DAILY ferrous sulfate 324 mg (65 mg iron) tablet,delayed release (DR/EC) 324 mg PO BID Eliquis 2.5 mg tablet 2.5 mg PO BID sucralfate [Carafate] 1 gram tablet 1 g PO QID sumatriptan succinate [Imitrex] 50 mg tablet 50 mg PO PRN PRN (Reason: Headache) Rx Instructions: take one tablet by mouth every day as needed for headache. max of 200 mg. gabapentin [Neurontin] 100 mg capsule 100 mg PO TID polyethylene glycol 3350 [Miralax] 17 gram/dose powder 17 g PO PRN PRN (Reason: Constipation) Rx Instructions: Mix 17 gm (one cap full) in 8 oz of liquid and drink daily as needed for constipation. lactulose [Enulose] 10 gram/15 mL solution 20 ml PO QHS PRN (Reason: Constipation) cyclobenzaprine 10 mg Tablet 10 mg PO TID Qty: 1 0RF amiodarone [Pacerone] 200 mg tablet 200 mg PO Q72H Qty: 1 0RF Rx Instructions: every three days for atrial fibrillation. sennosides-docusate sodium [Lax Stool Softener With Senna] 8.6-50 mg Tablet 1 tablet PO DAILY PRN (Reason: Constipation) lidocaine HCl 4 % Adhesive Patch,Medicated 1 patch TOPICAL DAILY ondansetron HCl 4 mg Tablet 4 mg PO Q6H PRN (Reason: Nausea) lorazepam 0.5 mg Tablet 0.5 mg PO BID Qty: 7 0RF amoxicillin-pot clavulanate [Augmentin] 500-125 mg Tablet 1 tablet PO Q12HR Qty: 5 0RF hydrocodone-acetaminophen 5-325 mg Tablet 1 tablet PO Q6H PRN (Reason: Pain Rated 7-10) Qty: 7 0RF calcium carbonate-vitamin D3 [Oyster Shell Calcium-Vit D3] 250 mg-3.125 mcg (125 unit) Tablet 1 tablet PO DAILY@0800 Qty: 30 0RF lidocaine [Lidoderm] 5 % Adhesive Patch,Medicated 1 patch transdermal DAILY Qty: 15 0RF Follow-up/Referrals: Varghese,MD Jarret [Primary Care Provider] -
--- OUTSIDE RECORDS SUMMARY | 2024-05-21 20:13 | XMS_ITS | Clinical Summary ---
Author Organization 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[facility]) Anemia 05/26/2019 Benign paroxysmal positional vertigo 05/26/2019 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 05/26/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 [...] Vertigo 05/26/2019 Senile osteoporosis 05/22/2019 Colon cancer ([facility]) 11/02/2018 Hemorrhagic shock ([facility]) 10/10/2018 Rotator cuff tear arthropathy of right shoulder 07/15/2018 Shoulder pain with history of repair of rotator cuff 07/11/2018 Mitral regurgitation 01/12/2018 Fracture, vertebral, lumbar closed ([facility]) 01/01/2017 Multiple rib fractures 01/01/2017 Pneumothorax 01/01/2017 Acute sinusitis 09/19/2008 Blood pressure elevated without history of HTN 0 09/19/2008 Tachycardia 09/19/2008 Predominant disturbance of emotions 08/23/2008 Nausea with vomiting 06/11/2008 Localized primary osteoarthritis of lower leg Contusion of chest wall 02/14/2008 Common migraine 01/05/2006 Esophageal reflux 01/05/2006 Ventral hernia 07/27/2005 Depression 12/18/2004 Atrial fibrillation ([facility]) Hypotension Resolved Problems Problem Noted Date Diagnosed Date Resolved Date Need for immunization against influenza 05/26/2019 12/15/2019 Need for varicella vaccine 05/26/2019 0 12/15/2019 Encounter for screening mamm ogram for high-risk patient 01/12/2008 12/15/2019 Immunizations Name Administration Dates Next Due Tdap [...] place to sleep or slept in a fpc (including now)? No 10/09/2022 Comments No Sex and Gender Information Value Date Recorded Sex Assigned at Not on file Legal Sex Female 12:12 AM CDT Gender Identity Not on file Sexual Orientation Not on file Last Filed Vital Signs Vital Sign Reading Time Taken Comments Blood Pressure 135/56 02/08/2024 8:23 AM CASHIER MANAGER Pulse 81 02/08/2024 8:23 AM CASHIER MANAGER Temperature 36.5 C (97.7 F) 02/08/2024 8:23 AM CASHIER MANAGER Respiratory Rate 17 02/08/2024 8:23 AM CASHIER MANAGER Oxygen Saturation 97% 02/08/2024 8:23 AM CASHIER MANAGER Inhaled Oxygen Concentration - - Weight 54.4 [...] transitions and discharge planning Lifestyle No Dannielle Guillermo, NICK Insurance INSURANCE MEDICARE MEDICARE COUNTRY INSURANCE Advance Directives Documents on File Type Date Recorded Patient Kelp Cutter Expl anation Advance Directives and Living Will 10/11/2018 8:42 AM 02/11/11 LIVING WILL Power of Trim Machine Adjuster 05/05/2018 12:25 PM Rama [id number]; Marysol Hollis-1st alternate agent-daughter; Ruiz Reeves-2nd alternate agent-son; Doug Reeves-3rd alternate agent-son; Duong Reeves-4th alternate agent-son Advance Directives and Living Will 01/01/2017 LIVING WILL Advance Directives and Living Will 01/01/2017 POWER OF PUBLICATION DIRECTOR FO R HEALTH CARE Advance Directives and Living Will 01/01/2017 SHORT FORM POWER OF PUBLICATION DIRECTOR Advance Directives and Living Will 12/16/2016 POWER OF PUBLICATION DIRECTOR FO R HEALTH CARE Advance Directives and Living Will 12/16/2016 LIVING WILL Advance Directives and Living Will 12/16/2016 SHORT FORM POWER OF PUBLICATION DIRECTOR Advance Directives and Living Will 07/31/2016 POWER OF PUBLICATION DIRECTOR FO R HEALTH CARE Advance Directives and Living Will 07/31/2016 SHORT FORM POWER OF PUBLICATION DIRECTOR Advance Directives and Living Will 07/31/2016 LIVING WILL Advance Directives and Living Will 12/29/2013 POWER OF PUBLICATION DIRECTOR FO R HEALTH CARE Advance Directives and Living Will 12/29/2013 SHORT FORM POWER OF PUBLICATION DIRECTOR * DNR (Latest Code Status on File) [...] (HCPOA) * Rapp Daughter Health Care Agent [phone] (Mobile ) Marysol Hollis Daughter First Alternate Health Care Agent Ruiz Reeves Son Second Alternat e Health Care Agent Care Teams Doctor Podiatric Medicine Relationship Specialty Start Date End Date Jarret Kwong MD [address] [place] [phone] PCP - General FAMILY PRACTICE 12/27/17 Robbin Urban MD [address] [place] [id number] [place] Enrichment Specialist CARDIOVASCULAR DISEASE 04/24/19
--- OUTSIDE RECORDS SUMMARY | 2024-05-21 20:13 | XMS_ITS | Encounter Summary ---
Author Organization [facility] Address [address] [place] [id number] Care Team Providers Care Textile Examiner Name Role Phone Jarret Kwong MD Primary Care Provider Robbin Urban MD Unavailable [phone] Encounter Details Date Type Department Care Team (Late st Contact Info) Description 05/22/2019 Hospital Orders Only [facility] [address] [facility] [place] [id number] Lilia Edmondson, RN Social History Tobacco Use [...] Haas RN Active documented in this encounter Plan of Treatment Not on file documented as of this encounter Visit Diagnoses Not on filedocumented in this encounter Additional Health Concerns Infection Onset Date Last Indicated Resolved Time COVID-19 Rule Out 10/13/2022 10/13/2022 10/13/2022 12:01 PM CDT documented as of this encounter Care Teams Textile Examiner Relationship Specialty Start Date End Date Jarret Kwong MD [address] [place] [phone] PCP - General FAMILY PRACTICE 12/27/17 Robbin Urban MD [address] [place] [id number] [place] Sas Statistical Programmer CARDIOVASCULAR DISEASE 04/24/19 documented as of this encounter
--- OUTSIDE RECORDS SUMMARY | 2024-05-21 20:13 | XMS_ITS | Encounter Summary ---
Author Organization [facility] Address [address] [place] [id number] Care Team Providers Care Manager Bank Name Role Phone Jarret Kwong MD Primary Care Provider Go Hanna MD Unavailable Unavailable Robbin Urban MD Unavailable [phone] Encounter Details Date Type Department Care Team (Late st Contact Info) Description 09/10/2018 Abstract SFL CONVERSION [address] [place] [address] , Generic Conversion, Social History Tobacco Use [...] documented as of this encounter Care Teams Manager Bank Relationship Specialty Start Date End Date Jarret Kwong MD [address] [place] [phone] PCP - General FAMILY PRACTICE 12/27/17 Go Hanna MD [address] [place] [phone] INTERVENTIONAL CARDIOLOGY 12/27/17 04/23/19 Robbin Urban MD [address] [place], [place] [phone] [place] Bareback Rider CARDIOVASCULAR DISEASE 04/24/19 documented as of this encounter
[2024-05-21 20:42] LABS: SARS-CoV-2 RNA PCR Negative (Negative)
[2024-05-21 20:52] LABS: Base Excess ABG 0.7 mmol/L (0-2); HCO3 ABG 21.6 mmol/L (23-29); Oxygen Saturation ABG 96.5 % (95-97); Oxyhemoglobin 96.1 % (94-100); PCO2 ABG 25.1 mmHg (35-45); PO2 ABG 82.3 mmHg (75-85); pH ABG 7.55 (7.35-7.45)
[2024-05-21 20:56] LABS: Basophils Absolute Auto 0.02 K/mm3 (0.00-0.10); Basophils Percent Auto 0.3 % (0.0-1.0); Eosinophils Absolute Auto 0.05 K/mm3 (0.02-0.50); Eosinophils Percent Auto 0.7 % (1.0-6.0); Hematocrit 35.8 % (35.0-42.0); Hemoglobin 11.9 g/dL (11.7-13.8); Immature Granulocyte Absolute 0.02 K/mm3 (0.00-0.00); Immature Granulocyte Percent A 0.3 % (0.0-0.0); Lymphocytes Absolute Auto 1.15 K/mm3 (1.10-4.50); Lymphocytes Percent Auto 16.5 % (18.0-42.0); Mean Corpuscular HGB Conc 33.2 g/dL (32-36); Mean Corpuscular Hemoglobin 28.5 pg (27.0-31.0); Mean Corpuscular Volume 85.9 fL (78.0-102.0); Mean Platelet Volume 10.8 fl (9.2-11.8); Monocytes Absolute Auto 0.53 K/mm3 (0.10-0.90); Monocytes Percent Auto 7.6 % (2.0-11.0); Neutrophils Absolute Auto 5.21 K/mm3 (1.70-7.20); Neutrophils Percent Auto 74.6 % (50.0-70.0); Platelet Count Result 274 K/mm3 (150-420); Red Blood Count 4.17 M/mm3 (4.20-5.40); Red Cell Distribution Width 12.9 % (11.6-14.4)
[2024-05-21 20:56] LABS: Device ROOM AIR; Modified Allen's Test Pass; Site Drawn RIGHT RADIAL
[2024-05-21 20:57] LABS: Influenza A QL RT-PCR Negative (Negative); Influenza B QL RT-PCR Negative (Negative); RSV RNA, RT-PCR Negative (Negative)
[2024-05-21 21:13] LABS: Lactic Acid Reflex 1.4 mmol/L (0.4-2.0)
[2024-05-21 21:14] LABS: Partial Thromboplastin Time 29.3 Sec (23.9-30.70); Prothrombin Time 10.8 Seconds (9.50-12.1)
[2024-05-21 21:17] LABS: Alanine Aminotransferase 13 U/L (14-59); Albumin Level 3.2 g/dL (3.4-5.0); Alkaline Phosphatase 116 U/L (46-116); Anion Gap 11 mmol/L (4-12); Aspartate Amino Transferase 10 U/L (15-37); Bilirubin,Total 0.4 mg/dL (0.00-1.00); Blood Urea Nitrogen 16 mg/dL (7-18); CRP 0.5 mg/dL (0.0-0.9); Calcium 8.7 mg/dL (8.5-10.1); Carbon Dioxide 24 mmol/L (21-32); Chloride 98 mmol/L (98-108); Estimated CRCL calculation 31 ml/min; Estimated Glomerular Filt Rate 56; Glucose 129 mg/dL (70-99); NT Pro B Type Natriuretic Pept 902 pg/mL (0-450); Osmolality Calculated 279 mOsm/kg (285-295); Potassium 3.8 mmol/L (3.5-5.1); Sodium 133 mmol/L (136-145); Total Protein 6.4 g/dL (6.4-8.2)
[2024-05-21 21:34] LABS: Add Urine Microscopic? YES; Bilirubin Urine Negative (Negative); Blood Urine Trace-intact (Negative); Color Urine Light Yellow (Yellow); Glucose Urine UA Negative (Negative); Ketones Urine Negative (Negative); Leukocyte Esterase Ur 2+ LEU/UL (Negative); Nitrate Urine Negative (Negative); Protein Urine Negative (Negative); Specific Grav Ur 1.015 (1.010-1.020); Urobilinogen Urine 0.2 mg/dL (0.2-1.0)
[2024-05-21 22:08] LABS: Amorphous Sediment Urine Moderate; Appearance Urine Cloudy (Clear); Bacteria Urine 2+ /hpf; Mucus Urine Few /lpf; Squamous Epithelial Cell Urine Few /hpf (Few); WBC Clumps Urine Present /hpf; WBC Urine 51-75 /hpf (0-3)
== END 2024-05-21 22:33 ==
PROVIDERS: Emergency Provider Emergency Medicine; PCP Family Medicine
DX: N39.0 Urinary tract infection, site not specified (principal); R05.9 Cough, unspecified; I48.91 Unspecified atrial fibrillation; Z20.822 Contact with and (suspected) exposure to COVID-19
CPT/HCPCS: 36415; 36600; 71045; 80053; 81001; 82805; 83605; 83880; 85025; 85610; 85730; 86140; 87040; 87086; 87637; 99283

== ENCOUNTER 2024-08-21 10:32 | Outpatient (CLI) | payer MEDICARE, SELFPAY ==
--- NOTE | ~2024-08-21 | XR_ITS ---
XR hip RT min 2V Ordering provider: Jarret Kwong, History: . Right Leg Pain since last NK . Comparison: None. FINDINGS: BONES: No acute fracture or dislocation. HIP JOINT SPACES: Slightly narrowed SACROILIAC JOINT SPACES/LUMBAR SPINE: The sacroiliac joint spaces are normal. Mild degenerative glez es of the visualized lower lumbar spine. PUBIC SYMPHYSIS: Normal. SOFT TISSUES: Normal. IMPRESSION: No acute osseous abnormality pelvis and right hip. Mild osteoarthritic changes of the right hip. Reviewed, dictated and finalized at location A.
--- NOTE | ~2024-08-21 | XR_ITS ---
XR knee RT 3V Ordering provider: Jarret Kwong, History: . Right Leg Pain since last NK . Comparison: None. FINDINGS: BONES: No acute fracture or dislocation. JOINT SPACES: Total knee arthroplasty. SOFT TISSUES: Normal. IMPRESSION: No acute osseous abnormality right knee. Total knee arthroplasty. Reviewed, dictated and finalized at location A.
--- OUTSIDE RECORDS SUMMARY | 2024-08-21 11:07 | XMS_ITS | Data Portability ---
Author Organization [facility], [address] [place] [address] Neurology ([place]) Address [address] [address] Care Team Providers Care Log Skidder Name Role Phone SHAUNNA MARTINEZ Primary Care [...] to severe mitral regurgitation: Degenerative mitral valve. Walton not to be a candidate for MitraClip. [...] radial head fracture after being seen at [facility] Emergency Department. Date of injury 02/04/24. The patient has been nonweightbearing to the right upper extremity. Wearing a sling but states she has never had any pain in her right elbow and she is unsure of why she has to immobilize it. The patient fell. She is residing at a snf in [place]. She is normally in the independent side. [...] min No observ ation record ed. JODEE [facility] [address] [address], [place], [address], 11/08/2023 10:05:44 11/18/19 24 04/21/2022 imagi ng/prasanna guerra tic resul t No observ ation record ed. [email or web address] Not Available 11/18/2023 17:09:11 01/06/20 24 01/05/2024 , echoc [facility] [place] [address] [facility] [place] [address] Adult E[place] rdiogr Report Name: Miguel KLEIN jesus Kuhn Study Date: 2023 : 1939 2299 Gender : Female Age: 83 yrs Height [...] Dopple r). The study was techni dev [facility] ult. LEFT VENTRI BRET: The left ventri [...] T) Index: 53.7 Electr onical ly signed by:[facility] nirmala guthrie MD 2023 06:46 AM cc: Miguel Klein 2023 US CARDIO ECHO INTERFACE Sc Only - Sc Radiology [address] [facility], [place], [address], 01/06/2024 07:47:16 02/05/20 24 02/05/2024 XR, knee, 1 or 2 view [facility] [address] [facility] [place] [address] Indica tion: Fall, knee pain COMPAR MALIK: [...] reted By: Memo Rosario MD, 2:12 AM Summly Only - [facility] Rad [address] [place], [address], 02/25/2024 09:40:18 02/05/20 24 02/05/2024 XR, shoul richelle [facility] - [facility] 800 [facility] [place] [address] Indica tion: Should er pain and fall [...] reted By: Memo Rosario MD, 2:13 AM Summly Only - [facility] Rad [address] [place], [address], 02/25/2024 09:40:19 02/28/20 24 02/28/2024 XR, elbow , 3 or more view [facility]st [address] [address] Teleph one [phone] Name: Miguel Klein [id number] am Date: 2023 [...] 2:39 PM cc: Page PAGE 1 of [facility] ES 1 [email or web address] [facility] Only - [facility] Radiology [address] [place] [address], [address], 02/28/2024 17:08:23 02/28/20 24 02/05/2024 XR, forea rm, 2 view No observ ation record ed. [email or web address] Not Available 2023 18:45:13 Result Notes None recorded. Problems Name Problem SNOMED Code Status Onset Date Resolution Date Notes Provider Name and Address Organization Details Recorded Time Injury of right elbow region 6690956399102 9101 Active 2023 EMILIA Adame-Harinder [address] [place] [address], [phone], [employer] 4 15:59:38 Atrial fibrillatio n 65325418 Active 2023 Renate aMrtinez [facility] 4 15:53:03 Mitral valve regurgitati on 91729403 Active 2023 Tez Hammond MD [address] [place], [address], [employer] 4 15:18:17 Problem Notes None recorded. Procedures Surgical History None recorded. Imaging Results Imaging Date Name Status LastModified by Organization Details LastModified Time 10/27/2023 electrocardiogram, routine ECG, 12 leads min completed JODEE [facility] [address] [facility] [address] [address], [place], [address], 11/08/2023 10:05:44 04/21/2022 imaging/diagnostic result completed 601 Information not available 11/18/2023 17:09:11 01/05/2024 US, echocardiogram completed INTERFACE Sc Onl y - Sc Radiology [address] [place] [address], [address], 01/06/2024 07:47:16 02/05/2024 XR, knee, 1 or 2 [facility] [address] [place], [address], 02/25/2024 09:40:18 02/05/2024 XR, shoulder [facility] - [facility] Rad [address] [place], [address], 02/25/2024 09:40:19 02/28/2024 XR, elbow, 3 or more view completed [email or web address] Sc Only - Sc Radiology [address] [place] [address], [address], 02/28/2024 17:08:23 02/05/2024 XR, forearm, 2 view [...] 4 86 /min 99 % 99 % 34500.6 7 g 118 mm[Hg] 64 mm[Hg] Olga Solano [facility] 4 14:35:30 Social History None recorded. Functional Status None recorded. Mental Status None recorded. Family History Nothing Reported. Medical History No medical history recorded. Gynecological HistoryNo gynecological history recorded. Obstetrics History GPAL:G 0 P 0 0 0 0 Past Encounters Encounter ID Performer Location Encounter Start Date Encounter Closed Date Diagnosis/Indication Diagnosis SNOMED-CT Code Diagnosis ICD10 Code Diagnosis Note [id number] Tez Hammond MD [facility] Specialty Cardiolog y ([place]) [address] [place] [address] 10/19/2023 14:24:09 10/22/2023 13:00:39 Atrial fibrillation 40674483 I48.91 Mitral laya ve regurgitation 99333318 I34.0 [id number] Linnette Sky PA-C 800 [facility] ([place] [address] [place] [phone] 02/28/2024 14:47:36 02/29/2024 05:42:50 Injury of right elbow region 0167885441 5126182 S59.901A Fall W19.XXXA Health Concerns Section Related Observation LastModified by Organization Detai ls LastModified Time None Recorded Concern Status LastModified by Organization Details LastModified Time None Recorded Advance Directives Directive None Recorded Payers Insurance Date Sequence Insurance Name Policy Number Policy Walker Covered Member ID Walker Member ID Guarantor Name 07/12/2024 1 [place] Emerald Klein [id number] Emerald Klein 02/22/2024 2 COUNTRY FINANCIAL (MEDICARE SUPPLEMENT) PLAN F Emerald Klein [id number] Emerald Klein 07/12/2024 1 [place] Emerald Klein [id number] Emerald Klein OBGyn Episode No OBEpisode recorded.
--- OUTSIDE RECORDS SUMMARY | 2024-08-21 11:07 | XMS_ITS | Clinical Summary ---
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) 10/08/2022 Anemia 05/26/2019 Benign paroxysmal positional vertigo 05/26/2019 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 05/26/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 [...] Vertigo 05/26/2019 Senile osteoporosis 05/22/2019 Colon cancer ([facility]) 11/02/2018 Hemorrhagic shock ([facility]) 10/10/2018 Rotator cuff tear arthropathy of right shoulder 07/15/2018 Shoulder pain with history of repair of rotator cuff 07/11/2018 Mitral regurgitation 01/12/2018 Fracture, vertebral, lumbar closed ([facility]/ [facility]) 01/01/2017 Multiple rib fractures 01/01/2017 Pneumothorax 01/01/2017 Acute sinusitis 09/19/2008 Blood pressure elevated without history of HTN 0 09/19/2008 Tachycardia 09/19/2008 Predominant disturbance of emotions 08/23/2008 Nausea with vomiting 06/11/2008 Localized primary osteoarthritis of lower leg Contusion of chest wall 02/14/2008 Common migraine 01/05/2006 Esophageal reflux 01/05/2006 Ventral hernia 07/27/2005 Depression 12/18/2004 Atrial fibrillation ([facility]) Hypotension Resolved Problems Problem Noted Date Diagnosed Date Resolved Date Need for immunization against influenza 05/26/2019 12/15/2019 Need for varicella vaccine 05/26/2019 0 12/15/2019 Encounter for screening mamm ogram for high-risk patient 01/12/2008 12/15/2019 Immunizations Immunization Administration Dates Next Due Tdap (Boostrix) 10/08/2022 [...] place to sleep or slept in a usp (including now)? No 10/09/2022 Comments No Sex and Gender Information Value Date Recorded Sex Assigned at Not on file Legal Sex Female 12:12 AM CDT Gender Identity Not on file Sexual Orientation Not on file Last Filed Vital Signs Vital Sign Reading Time Taken Comments Blood Pressure 135/56 02/08/2024 8:23 AM FLIGHT AGENT Pulse 81 02/08/2024 8:23 AM FLIGHT AGENT Temperature 36.5 C (97.7 F) 02/08/2024 8:23 AM FLIGHT AGENT Respiratory Rate 17 02/08/2024 8:23 AM FLIGHT AGENT Oxygen Saturation 97% 02/08/2024 8:23 AM FLIGHT AGENT Inhaled Oxygen Concentration - - Weight 54.4 [...] - 1-dose 75+ series) 02/25/2016 Pneumococcal Vaccine: 50+ Years (2 of 2 - PPSV23) 04/20/2016 2016 COVID-19 Vaccine (3 - 2023-2 5 season) 2023 05/31/2020, 05/10/2020 DTaP, Tdap and Td Vaccines ( 2 [...] Documents on File Type Date Recorded Patient Shotweld Operator Expl anation Advance Directives and Living Will 10/11/2018 8:42 AM 02/11/11 LIVING WILL Power of Hvac Sales Engineer 05/05/2018 12:25 PM Rama RappEfugj-LBO-vgqjdrgg; Marysol Hollis-1st alternate agent-daughter; Ruiz Reeves-2nd alternate agent-son; Doug Reeves-3rd alternate agent-son; Duong Reeves-4th alternate agent-son Advance Directives and Living Will 01/01/2017 LIVING WILL Advance Directives and Living Will 01/01/2017 POWER OF LABORER FILTER PLANT FO R HEALTH CARE Advance Directives and Living Will 01/01/2017 SHORT FORM POWER OF LABORER FILTER PLANT Advance Directives and Living Will 12/16/2016 POWER OF LABORER FILTER PLANT FO R HEALTH CARE Advance Directives and Living Will 12/16/2016 LIVING WILL Advance Directives and Living Will 12/16/2016 SHORT FORM POWER OF LABORER FILTER PLANT Advance Directives and Living Will 07/31/2016 POWER OF LABORER FILTER PLANT FO R HEALTH CARE Advance Directives and Living Will 07/31/2016 SHORT FORM POWER OF LABORER FILTER PLANT Advance Directives and Living Will 07/31/2016 LIVING WILL Advance Directives and Living Will 12/29/2013 POWER OF LABORER FILTER PLANT FO R HEALTH CARE Advance Directives and Living Will 12/29/2013 SHORT FORM POWER OF LABORER FILTER PLANT * DNR (Latest Code Status on File) [...] (HCPOA) * Rapp Daughter Health Care Agent [phone] (Mobile ) Marysol Hollis Daughter First Alternate Health Care Agent Ruiz Reeves Son Second Alternat e Health Care Agent Care Teams Rn Camp Relationship Specialty Start Date End Date Jarret Kwong MD [address] [place] [phone] PCP - General FAMILY PRACTICE 12/27/17 Robbin Urban MD [address] [place] [phone] [place] Boatswains Mate CARDIOVASCULAR DISEASE 04/24/19
--- OUTSIDE RECORDS SUMMARY | 2024-08-21 11:07 | XMS_ITS | Encounter Summary ---
Author Organization [facility] Address [address] [place] [address] Care Team Providers Care Heel Sewer Name Role Phone Jarret Kwong MD Primary Care Provider Robbin Urban MD Unavailable [phone] Encounter Details Date Type Department Care Team (Late st Contact Info) Description 05/22/2019 Hospital Orders Only [facility] [address] [facility] [phone] Lilia Edmondson, RN Social History Tobacco Use [...] documented as of this encounter Care Teams Heel Sewer Relationship Specialty Start Date End Date Jarret Kwong MD [address] [place] [phone] PCP - General FAMILY PRACTICE 12/27/17 Robbin Urban MD [address] [place] [phone] [place] Drawer Fitter CARDIOVASCULAR DISEASE 04/24/19 documented as of this encounter
--- OUTSIDE RECORDS SUMMARY | 2024-08-21 11:07 | XMS_ITS | Encounter Summary ---
Author Organization [facility] Address [address] [place] [address] Care Team Providers Care Contact Centre Supervisor Name Role Phone Jarret Kwong MD Primary Care Provider [phone] Go Hanna MD Unavailable Unavailable Robbin Urban MD Unavailable [phone] Encounter Details Date Type Department Care Team (Late st Contact Info) Description 09/10/2018 Abstract SFL CONVERSION [address] [place] [address] , Generic Conversion, Social History Tobacco Use [...] documented as of this encounter Care Teams Contact Centre Supervisor Relationship Specialty Start Date End Date Jarret Kwong MD [address] [place] [phone] PCP - General FAMILY PRACTICE 12/27/17 Go Hanna MD [address] [place] [phone] INTERVENTIONAL CARDIOLOGY 12/27/17 04/23/19 Robbin Urban MD [address] [place] [phone] [place] Handle Bench Worker CARDIOVASCULAR DISEASE 04/24/19 documented as of this encounter
== END 2024-08-21 10:33 | disposition home or self-care (01) ==
LOC: CHSIMG 10:34
PROVIDERS: PCP Family Medicine; Visit Provider Family Medicine
DX: M79.604 Pain in right leg (principal); Z96.651 Presence of right artificial knee joint; M16.11 Unilateral primary osteoarthritis, right hip
CPT/HCPCS: 73502; 73562